=== PATIENT | female | born 1950 | race Asian ===

== ENCOUNTER 2017-03-24 11:25 | Inpatient (IN) | payer SELFPAY ==
[~2017-03-24] VITALS: Ht 154.9 cm; Wt 85.7 kg
[2017-03-24 12:02] LABS: BASO # 0.1 x10^3/uL (0.0-0.2); BASO % 1 % (0-3); EOS % 1 % (0-3); HEMATOCRIT 44.2 % (36.0-47.0); HEMOGLOBIN 14.4 g/dL (12.0-15.5); LYMPH # 1.8 x10^3/uL (1.0-4.8); LYMPH % 20 % (24-48); MEAN CORPUSCULAR HEMOGLOBIN 30 pg (25-35); MEAN CORPUSCULAR HGB CONC 33 g/dL (31-37); MEAN CORPUSCULAR VOLUME 93 fL (79-100); MONO % 6 % (0-9); NEUT % 73 % (31-73); PLATELET COUNT 208 x10^3/uL (140-400); RED BLOOD COUNT 4.76 x10^6/uL (3.50-5.40); RED CELL DISTRIBUTION WIDTH 12.7 % (11.5-14.5); WHITE BLOOD COUNT 9.2 x10^3/uL (4.0-11.0)
--- NOTE | 2017-03-24 12:07 | RAD ---
CT head without IV contrast Indication: Left-sided weakness. Technique: CT head without IV contrast Comparison: None Findings: No pathologic extra-axial or intra-axial fluid collections. Mild diffuse cerebral atrophy with ex vacuo dilation of the ventricles. No acute intracranial bleed. Confluent areas of low attenuation in the periventricular and deep white matter suggesting sequela of chronic microvascular disease. 1.1 cm area of low-attenuation within right basal ganglia. The basilar cisterns are within normal limits. Orbits within normal limits. No calvarial lesions or fractures. Visualized paranasal sinuses and mastoid air cells are clear. Impression: 1. No acute intracranial bleed. 2. Low-attenuation area within right basal ganglia (1.1 cm) likely infarct, age indeterminate. If concern for acute ischemic stroke is high, please consider MRI brain. 3. Confluent periventricular and deep white matter low attenuation most likely represents sequela of chronic microvascular ischemia. PQRS Compliance Statement: One or more of the following individualized dose reduction techniques were utilized for this examination: 1. Automated exposure control 2. Adjustment of the mA and/or kV according to patient size 3. Use of iterative reconstruction technique
[2017-03-24 12:13] LABS: PROTHROMBIN TIME PATIENT 12.5 SEC (11.7-14.0)
[2017-03-24 12:16] LABS: CREATININE 1.1 mg/dL (0.6-1.0); GFR 49.4; POTASSIUM 4.2 mmol/L (3.5-5.1)
[2017-03-24 12:19] LABS: ALBUMIN 3.8 g/dL (3.4-5.0); ALBUMIN/GLOBULIN RATIO 0.9 (1.0-1.7); TOTAL BILIRUBIN 0.6 mg/dL (0.2-1.0); TOTAL PROTEIN 8.1 g/dL (6.4-8.2)
[2017-03-24] MEDS ORDERED: DEXTROSE 50% 25 GM / 50ML DISP.SYRIN. IV PRN (12:30)
[2017-03-24 12:39] LABS: BILIRUBIN,URINE NEGATIVE (NEG); GLUCOSE,URINE >=1000 mg/dL (NEG); NITRITE,URINE POSITIVE (NEG); PH,URINE 6.5; PROTEIN,URINE NEGATIVE (NEG-TRACE); UROBILINOGEN,URINE 0.2 mg/dL (0.2 mg/dL)
--- NOTE | 2017-03-24 12:39 | EKG ---
[facility] [address] [place] [address] Test Date: 2017-03-24 Test Time: 11:41:14 Pat Name: VALENTINA CHEN Department: Room: Gender: F Service Vehicle Operator: : 1950 Requested By: AASHISH LEON Order Number: [id number] Reading MD: Matteo Bolanos Measurements Intervals [place] Rate: 60 P: 51 MT: 160 QRS: 30 QRSD: 80 T: 131 QT: 426 QTc: 426 Interpretive Statements SINUS RHYTHM NON-SPECIFIC ST/T CHANGES Electronically Signed On 03-29-2017 14:27:34 CDT by Matteo Bolanos
[2017-03-24 12:57] LABS: BARBITURATES NEG (NEG); BENZODIAZEPINES NEG (NEG); CANNABINOIDS NEG (NEG); COCAINE NEG (NEG); METHADONE NEG (NEG); OPIATES NEG (NEG); PHENCYCLIDINE NEG (NEG)
[2017-03-24 12:59] LABS: BACTERIA,URINE MANY /HPF (0-FEW); RBC,URINE RARE /HPF (0-2); SQUAMOUS EPITHELIAL CELL,UR OCC /LPF
--- NOTE | 2017-03-24 13:01 | RAD ---
Chest x-ray Indication: Weakness Technique: Portable AP upright chest plane from Comparison: None Findings: Heart is normal in size. Lungs are clear. No pneumothorax or pleural effusion. Visualized bony thorax within normal limits. Impression: No acute cardiopulmonary process.
[2017-03-24] MEDS ORDERED: ONDANSETRON PF 4 MG/2 ML VIAL. IV PRN ×2 (13:30→16:30)
[2017-03-24] MEDS: IV NORMAL SALINE 1000ML BAG 1,000 ML IV SCH ×3 (13:37→21:45)
[2017-03-24] MEDS ORDERED: 0.9 % SODIUM CHLORIDE 10 ML DISP.SYRIN. IV PRN (13:45)
[2017-03-24] MEDS ORDERED: ASPIRIN 300 MG SUPP.RECT PR ONE (13:45)
[2017-03-24] MEDS ORDERED: ACETAMINOPHEN 325 MG TABLET. PO PRN (13:45)
[2017-03-24] MEDS ORDERED: LABETALOL 20 MG/4 ML DISP.SYRIN. IV PRN (13:45)
[2017-03-24 13:50] VITALS: BP 154/69
--- NOTE | 2017-03-24 14:03 | ACF ---
Admit Criteria Forms Admit Criteria Forms Admit Criteria Forms NEUROLOGY GRG Clinical Indications for Admission to Inpatient Care (Place ' X' for any and all applicable criteria): Hospital admission is needed for appropriate care of the patient because of 1 or more of the following: [ ]I. Encephalitis [ ]II. Severe SAP DEVELOPER infections indicated by 1 or more of the following(1)(2)(3) : [ ]a) Intracranial abscess [ ]b) Spinal abscess or myelitis [ ]c) Tuberculous or other nonbacterial, nonviral SAP DEVELOPER infection(8) [ ]III. Vasculitis and 1 or more of the following(14)(15): []a) Altered mental status that is severe or persistent or other acute neurologic change []b) Psychosis []c) Seizure [ ]IV. Status epilepticus or repetitive seizures not controlled with emergent treatment [A] (7)(8) [ ]V. Altered mental status that is severe or persistent [ ]. Transient alteration in consciousness with high-risk etiology; examples include (12)(13): [ ]a) Cardiovascular source [ ]b) Cataplexy [ ]VII. Cerebral aneurysm requiring ANY ONE of the following(14): [ ]a) IV antihypertensives or vasoactive agents [ ]b) Sedation and analgesia for suspected leak [ ]c) Need for external ventricular drainage and cerebral perfusion pressure monitoring [ ]d) Emergent evaluation to determine need for surgical clipping or endovascular coiling by interventional radiology. If surgery is required ( Also use Craniotomy, Supratentorial, for Surgery of Bleeding Intracranial Aneurysm (for bleeding aneurysm) or Craniotomy, Supratentorial (for nonbleeding aneurysm) as appropriate. [ ]VIII. New-onset severe neurologic symptom requiring inpatient care indicated by ANY ONE of the following: [ ]a) Aphasia(15) [ ]b) Weakness (grade 3 or less) [ ]c) Paralysis (eg, hemiplegia) [ ]d) Spasticity(16) [ ]e) Dystonia [ ]e) Ataxia(17) [ ]f) Amnesia(18) [ ]g) Involuntary movements(19) [ ]h) Vertigo [ ] Visual loss [ ]i) Other severe neurologic finding (eg, papilledema, mass effect on imaging, myoclonus not treatable at alternative level of care (eg, observation care) [ ]IX. Guillain-Bow syndrome(20) [ ]X. Myasthenia gravis crisis or inpatient monitoring need as indicated by 1 or more of the following(21): [ ]a) Intensive treatment (eg, course of plasmapheresis) with inadequate outpatient situation to monitor patients status [ ]b) Inadequate airway protection [ ]c) Respiratory insufficiency requiring intubation or inpatient. monitoring [ ]d) Progressive dysphagia with failure to thrive [ ]XI. Multiple sclerosis or other acute demyelinating disease requiring inpatient care as indicated by 1 or more of the following (22)(23): [ ]a) Acute severe deterioration requiring inpatient treatment (eg, IV steroids, plasmapheresis, close observation) [ ]b) Acute complication requiring inpatient care (eg, sepsis, severe decubitus, aspiration) [ ]XII.Parkinson disease requiring inpatient care (Also use Optimal Recovery Care Criteria or General Recovery Criteria as appropriate) indicated by 1 or more of the following(25): [ ]a) Infection (eg, aspiration pneumonia) not treatable at alternative level of care [ ]b Dehydration that is severe or persistent [ ]c) Life-threatening agitation or psychotic behavior not treatable on emergency, observation care, or alternative level (eg, residential) basis [ ]d) Severe medication withdrawal effects (eg, freezing, neuroleptic malignant syndrome) not responsive to emergency and observation care treatment ( as appropriate) [ ]e) Other severe manifestation not treatable at alternative level of care [ ]XII. Amyotrophic lateral sclerosis with inpatient care needs as indicated by ANY ONE of the following(26): [ ]a) Acute complications (eg, aspiration pneumonia, sepsis ) requiring inpatient care ( see other optimal Recovery Guideline as appropriate) [ ]b) Dehydration that is severe persistent AND artificial support desired [ ]c) Inadequate airway protection AND artificial support desired [ ]d) Severe ventilatory insufficiency AND artificial support desired [ ]XIII. Myasthenia gravis crisis or inpatient monitoring need as indicated by 1 or more of the following(21): [] a) Inadequate airway protection []b) Respiratory insufficiency requiring intubation or inpatient monitoring []c) Progressive dysphagia with failure to thrive []d) Intensive treatment (e.g., course of plasmapheresis) with inadequate outpatient situation to monitor patients status [ ]XIV. Multiple sclerosis or other acute demyelinating disease requiring inpatient care indicated by 1 or more of the following[C](36)(43)(44)(45)(46): []a) Acute severe deterioration requiring inpatient treatment (eg, IV steroids, plasmapheresis, close observation) []b) Acute complication requiring inpatient care (eg, sepsis, severe decubitus, aspiration) [ ]XV. Intracranial hypertension (e.g., pseudotumor cerebri) requiring inpatient care (e.g., acute visual loss, inadequate oral intake) (47)(48)(49) [ ]XVI. Parkinson disease requiring inpatient care (Also use Optimal Recovery Care Criteria or General Recovery Criteria as appropriate) indicated by 1 or more of the following(25): [] a) Infection (e.g., aspiration pneumonia) not treatable at alternative level of care []b) Volume depletion not responsive to emergency and observation care treatment (as appropriate) []c) Life-threatening agitation or psychotic behavior not treatable on emergency, observation care, or alternative level (e.g., residential) basis []d) Severe medication withdrawal effects (e.g., freezing, neuroleptic malignant syndrome) not responsive to emergency and observation care treatment (as appropriate) []e) Other severe manifestation not treatable at alternative level of care [ ]XVII. Amyotrophic lateral sclerosis with inpatient care needs as indicated by1 or more of the following(42): []a) Acute complications (eg, aspiration pneumonia, sepsis) requiring inpatient care (see other Optimal Recovery Guideline or General Recovery Guideline as appropriate) []b) Dehydration that is severe or persistent AND artificial support desired []c) Inadequate airway protection AND artificial support desired []d) Severe ventilatory insufficiency AND artificial support desired [ ]XVIII. Severe myopathy, neuropathy, or other neuromuscular disease indicated by 1 or more of the following(42)(52)(53)(54): []a ) New-onset severe diffuse weakness (eg, strength 3/5 or less) []b) Severe dysphagia []c) Dyspnea at rest or with minimal exertion (new) []d) Inadequate airway protection []e) Inadequate ventilation indicated by 1 or more of the following : i) Partial pressure of carbon dioxide greater than 44 mm Hg ( 5.9 kPa) (new) ii) Reduced peak expiratory flow rate (new) iii) Vital capacity less than 50% of predicted (less than 15 mL/kg) iv) Peak inspiratory force less negative than -30 cm H2O (- 2942 Pa) [ ]XVII.Complications of congenital or degenerative disease (eg, infection, seizures, dehydration, injury) not responsive to emergency and observation care treatment (as appropriate ) [C](16)(29)(30) [ ]XVIII.Suspected or confirmed nerve or muscle toxic injury, including ANY ONE of the following: [ ]a) Rhabdomyolysis(31) i) Acute renal failure ii) Dehydration that is severe or persistent iii) Altered mental status that is severe or persistent iv) Electrolyte abnormality that remains after emergency or observation level care ( as appropriate) [ ]b) Botulism(32) [ ]c) Other severe toxin-induced sign or symptom [ ]XIX. Neurologic trauma requiring inpatient treatment (medical) indicated by ANY ONE of the following(33)(34): [ ]a) Vital signs or neurologic signs more frequently than every 4 hours [ ]b) Hyperosmolar therapy [ ]c) Respiratory monitoring [ ]d) Intracranial pressure monitoring and treatment [ ]e) Stabilization and immobilization device placement (eg, braces, body jacket) [ ]f) Intubation & mechanical ventilation for airway protection or therapeutic hyperventilation [ ]g) Other treatment or monitoring needed that requires inpatient level of care [ ]XX.Complications of neurologic devices (eg, ventricular shunt, neurostimulator) requiring 1 or more of the following(35)(36): [ ]a) IV antibiotics with monitoring while awaiting culture results [ ]b) Monitoring for hydrocephalus [X ]XXI. Neurology condition symptom, or finding for which emergency and observation care have failed or are not considered appropriate. See General Criteria: Observation Care ISC, General Admission Criteria GRG, or Pediatric General Admission Criteria GRG guideline as appropriate. The original [employer] content created by [employer] has been revised. The portions of the content which have been revised are identified through the use of italic text or in bold, and [facility] has neither reviewed nor approved the modified material. All other unmodified content is copyright [facility] Please see references footnoted in the original [facility] [facility] edition 2016 JACE BARR Mar 24, 2017 14:03
[2017-03-24 14:30] VITALS: BP 177/68
[2017-03-24] MEDS: ENOXAPARIN 40 MG/0.4 ML SYRINGE. SQ SCH (14:32)
--- NOTE | 2017-03-24 14:58 | RAD ---
Carotid ultrasound, 03/24/2017: History: Stroke Duplex evaluation of the carotid arteries in neck was performed including grayscale, color-flow and spectral Doppler analysis. On the left, there is moderate atherosclerotic plaquing at the bifurcation. The plaques are partially calcified. The peak systolic velocity in the proximal left internal carotid artery is 93 cm/s with an end-diastolic velocity of 39 cm/s. The internal carotid to common carotid artery ratio on the left is 1.1. The Doppler findings suggest narrowing in the 0-50% diameter range. On the right, there is more extensive plaquing at the bifurcation. The common carotid artery demonstrates an abnormal high resistive Doppler waveform. No color flow is evident in the right internal carotid artery. There is blood flow in the right external carotid artery with a peak systolic velocity 120 cm/s. Antegrade flow is present in both vertebral arteries in the neck. IMPRESSION: 1. 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 2. Moderate atherosclerotic plaquing at the left carotid bifurcation with underlying luminal narrowing of the proximal internal carotid artery in the 0-50% diameter range. Note: The patient's nurse on the floor was notified of these findings at 2:55 PM on 03/24/2017. Note: Stenosis calculations for CTA, MRA and conventional angiography are based upon determination of the distal ICA diameter in accordance with the NASCET methodology. Stenosis calculations for Doppler studies are derived from validated velocity criteria which are known to correlate with NASCET methodology of determining stenosis.
--- NOTE | 2017-03-24 15:35 | ED.ADGEN ---
Past Medical History Past Medical History: Diabetes-Type II, Hypertension Past Surgical History: Alcohol Use: None Drug Use: None Adult General Chief Complaint Chief Complaint: NEURO SYMPTOMS/DEFICITS HPI HPI Patient is a 66 year old woman, history of hypertension, type 2 diabetes mellitus, obesity, who has been noncompliant with her medications for approximately 1 month due to running out of medications while visiting from the walking, who presents to the emergency department with a complaint of left lower extremity weakness that began one day ago, and development of left upper extremity weakness and facial droop with slurred speech that began earlier today. Per patient's family at bedside, patient symptoms were first noted yesterday when she was having difficulty moving her left leg. They state they tried to encourage the patient come to the emergency department for evaluation with the patient declined. He stated this finding is and persistent since that time. They state that this morning approximately 2 and half hours prior to arrival in the emergency department they noted the patient was experiencing some slurred speech and facial droop, with weakness that is now developed in the left upper extremity. There are no similar symptoms previously. Patient has not had any injuries, no recent travel, no ingestions or exposures, patient denies any headache, any chest pain, shortness breath, any nausea or vomiting. Translation is assisted by family at bedside. Patient's NH stroke scale is 10. As patient's symptoms began more than 24 hours ago, she does not meet criteria for a code stroke activation. Review of Systems Review of Systems Constitutional: Denies fever or chills. [] Eyes: Denies change in visual acuity. [] HENT: Denies nasal congestion or sore throat. [] Respiratory: Denies cough or shortness of breath. [] Cardiovascular: Denies chest pain or edema. [] GI: Denies abdominal pain, nausea, vomiting, bloody stools or diarrhea. [] : Denies dysuria. [] Musculoskeletal: Denies back pain or joint pain. [] Integument: Denies rash. [] Neurologic: Denies headache, weakness in the left upper and left lower extremity, left-sided facial droop. Slurred speech. Endocrine: Denies polyuria or polydipsia. [] Lymphatic: Denies swollen glands. [] Psychiatric: Denies depression or anxiety. [] Current Medications Current Medications Current Medications Medications (Trade) Dose Ordered Sig/Mynor Start Time Stop Time Status Last Admin Dose Admin Dextrose (Dextrose 50%-Water Syringe) 12.5 gm PRN Q15MIN PRN 03/24/17 12:30 Allergies Allergies Allergies Coded Allergies Type Severity Reaction Last Updated Verified No Known Drug Allergies 03/24/17 No Physical Exam Physical Exam Constitutional: Well developed, well nourished, no acute distress, non-toxic appearance. [] HENT: Normocephalic, atraumatic, bilateral external ears normal, oropharynx moist, no oral exudates, nose normal. [] Eyes: PERRLA, EOMI, conjunctiva normal, no discharge. [] Neck: Normal range of motion, no tenderness, supple, no stridor. [] Cardiovascular:Heart rate regular rhythm, no murmurs, S1, S2, no rubs or gallops. [] Lungs & Thorax: Bilateral breath sounds clear to auscultation, no wheezing, rhonchi, rales. No chest or crepitus or tenderness. [] Abdomen: Bowel sounds normal, soft, no tenderness, no masses, no rebound, rigidity, no guarding, no pulsatile masses. [] Skin: Warm, dry, no erythema, no rash. [] Back: No tenderness, no CVA tenderness. [] Extremities: No tenderness, no cyanosis, no clubbing, ROM intact, no edema. [] Neurologic: Alert and oriented X 3, sensation appears to be intact, however patient has 4-5 strength in the left lower extremity, 5 out of 5 in the right, and 3-5 strength in the left upper extremity, with a left-sided facial droop noted with decreased nasolabial folds. No trauma or uvular deviation, patient with mild dysarthria. Psychologic: Affect normal, judgement normal, mood normal. [] Current Patient Data Vital Signs Vital Signs Date Time Temp Pulse Resp B/P (MAP) Pulse Ox O2 Delivery O2 Flow Rate FiO2 03/24/17 12:32 54 16 143/65 (91) 95 03/24/17 11:45 Room Air 03/24/17 11:33 98.1 98.1 Lab Values Laboratory Tests Test 03/24/17 11:33 03/24/17 11:50 03/24/17 12:25 Glucose (Fingerstick) 265 mg/dL (70-99) H White Blood Count 9.2 x10^3/uL (4.0-11.0) Red Blood Count 4.76 x10^6/uL (3.50-5.40) Hemoglobin 14.4 g/dL (12.0-15.5) Hematocrit 44.2 % (36.0-47.0) Mean Corpuscular Volume 93 fL (79-100) Mean Corpuscular Hemoglobin 30 pg (25-35) Mean Corpuscular Hemoglobin Concent 33 g/dL (31-37) Red Cell Distribution Width 12.7 % (11.5-14.5) Platelet Count 208 x10^3/uL (140-400) Neutrophils (%) (Auto) 73 % (31-73) Lymphocytes (%) (Auto) 20 % (24-48) L Monocytes (%) (Auto) 6 % (0-9) Eosinophils (%) (Auto) 1 % (0-3) Basophils (%) (Auto) 1 % (0-3) Neutrophils # (Auto) 6.7 x10^3uL (1.8-7.7) Lymphocytes # (Auto) 1.8 x10^3/uL (1.0-4.8) Monocytes # (Auto) 0.5 x10^3/uL (0.0-1.1) Eosinophils # (Auto) 0.1 x10^3/uL (0.0-0.7) Basophils # (Auto) 0.1 x10^3/uL (0.0-0.2) Prothrombin Time 12.5 SEC (11.7-14.0) Prothrombin Time INR 1.0 (0.8-1.1) PTT 25 SEC (24-38) Sodium Level 138 mmol/L (136-145) Potassium Level 4.2 mmol/L (3.5-5.1) Chloride Level 100 mmol/L (98-107) Carbon Dioxide Level 30 mmol/L (21-32) Anion Gap 8 (6-14) Blood Urea Nitrogen 19 mg/dL (7-20) Creatinine 1.1 mg/dL (0.6-1.0) H Estimated GFR (Cockcroft-Gault) 49.4 BUN/Creatinine Ratio 17 (6-20) Glucose Level 309 mg/dL (70-99) H Calcium Level 9.0 mg/dL (8.5-10.1) Total Bilirubin 0.6 mg/dL (0.2-1.0) Aspartate Amino Transferase (AST) 39 U/L (15-37) H Alanine Aminotransferase (ALT) 84 U/L (14-59) H Alkaline Phosphatase 76 U/L (46-116) Troponin I Quantitative < 0.017 ng/mL (0.000-0.055) Total Protein 8.1 g/dL (6.4-8.2) Albumin 3.8 g/dL (3.4-5.0) Albumin/Globulin Ratio 0.9 (1.0-1.7) L Urine Collection Type U cath Urine Color Yellow Urine Clarity Clear Urine pH 6.5 Urine Specific [place] 1.020 Urine Protein Negative mg/dL (NEG-TRACE) Urine Glucose (UA) >=1000 mg/dL (NEG) Urine Ketones (Stick) Negative mg/dL (NEG) Urine Blood Negative (NEG) Urine Nitrite Positive (NEG) Urine Bilirubin Negative (NEG) Urine Urobilinogen Dipstick 0.2 mg/dL (0.2 mg/dL) Urine Leukocyte Esterase Moderate (NEG) Urine RBC Rare /HPF (0-2) Urine WBC 11-20 /HPF (0-4) Urine Squamous Epithelial Cells Occ /LPF Urine Bacteria Many /HPF (0-FEW) Urine Opiates Screen Neg (NEG) Urine Methadone Screen Neg (NEG) Urine Barbiturates Neg (NEG) Urine Phencyclidine Screen Neg (NEG) Urine Amphetamine/Methamphetamine Neg (NEG) Urine Benzodiazepines Screen Neg (NEG) Urine Cocaine Screen Neg (NEG) Urine Cannabinoids Screen Neg (NEG) Urine Ethyl Alcohol Neg (NEG) Laboratory Tests 03/24/17 11:50 Laboratory Tests 03/24/17 11:50 EKG EKG EC: Sinus rhythm, heart rate 60 beats/minute, upright axis, QTC of 426, KS 160, QRS of 80, contour abnormalities noted in the anterior and lateral leads , with mild ST depressions noted in lead V6, no no ST elevations, abnormal ECG, does not meet STEMI criteria. No prior for comparison. As interpreted by me. Radiology/Procedures Radiology/Procedures [][facility] [address] [place], [place] [id number] IMAGING REPORT Signed PATIENT: VALENTINA CHEN ACCOUNT: [id number] : 1950 LOCATION: ER AGE: 66 SEX: F EXAM STATUS: PRE ER ORD. PHYSICIAN: AASHISH LEON DO REASON: weakness PROCEDURE: CT HEAD WO CONTRAST CT head without IV contrast Indication: Left-sided weakness. Technique: CT head without IV contrast Comparison: None Findings: No pathologic extra-axial or intra-axial fluid collections. Mild diffuse cerebral atrophy with ex vacuo dilation of the ventricles. No acute intracranial bleed. Confluent areas of low attenuation in the periventricular and deep white matter suggesting sequela of chronic microvascular disease. 1.1 cm area of low-attenuation within right basal ganglia. The basilar cisterns are within normal limits. Orbits within normal limits. No calvarial lesions or fractures. Visualized paranasal sinuses and mastoid air cells are clear. Impression: 1. No acute intracranial bleed. 2. Low-attenuation area within right basal ganglia (1.1 cm) likely infarct, age indeterminate. If concern for acute ischemic stroke is high, please consider MRI brain. 3. Confluent periventricular and deep white matter low attenuation most likely represents sequela of chronic microvascular ischemia. PQRS Compliance Statement: One or more of the following individualized dose reduction techniques were utilized for this examination: 1. Automated exposure control 2. Adjustment of the mA and/or kV according to patient size 3. Use of iterative reconstruction technique DICTATED and SIGNED BY: MARISELA JONAS DO DATE: 03/24/17 1200 CC: AASHISH LEON DO ~ Impressions: [facility] [address] [place], [place] [id number] IMAGING REPORT Signed PATIENT: VALENTINA CHEN ACCOUNT: [id number] : 1950 LOCATION: ER AGE: 66 SEX: F EXAM STATUS: REG ER ORD. PHYSICIAN: AASHISH LEON DO REASON: Weakness PROCEDURE: CHEST AP ONLY Chest x-ray Indication: Weakness Technique: Portable AP upright chest plane from Comparison: None Findings: Heart is normal in size. Lungs are clear. No pneumothorax or pleural effusion. Visualized bony thorax within normal limits. Impression: No acute cardiopulmonary process. DICTATED and SIGNED BY: MARISELA JONAS DO DATE: 03/24/17 1257 CC: AASHISH LEON DO; UNKNOWN PCP NAME ~ Course & Med Decision Making Course & Med Decision Making Pertinent Labs and Imaging studies reviewed. (See chart for details) Patient's examination consistent with CVA, at this time based blood pressure is 150s over 70s, heart rate is in the 80s, saturation is in the upper 90s respiratory rate is in the 20s and unlabored. However, patient has been noncompliant with medications for both blood pressure and diabetes for at least one month. CT of the head obtained, reveals evidence of a basal ganglia infarct of indeterminate age. Swallow screen performed in the emergency department, patient was unable to comply, rectal aspirin was administered and the patient was continued nothing by mouth status. Findings as above discussed with patient and family at bedside, patient is agreeable for admission to the hospital. I did speak with Dr. Hummel of neurology, will admit the patient for continued management and evaluation, with carotid Dopplers, and MRI brain with and without. MRI brain was ordered from the ED. I spoke with Dr. Arellano of internal medicine on patient accepted to her service as a full admission to the medical telemetry floor, with continued monitoring, and neurology consultation as stated. Bridge orders entered per discussion. Dragon Disclaimer Dragon Disclaimer This electronic medical record was generated, in whole or in part, using a voice recognition dictation system. Departure Impression: Primary Impression: CVA (cerebral vascular accident) Disposition: ADMITTED INPATIENT Admitting Physician: Jonna Arellano Condition: STABLE AASHISH LEON DO Mar 24, 2017 15:35
--- NOTE | 2017-03-24 15:41 | RAD ---
MRI Brain without contrast History: Left-sided weakness, active aphagia for 2 days, stroke Technique: Multiplanar, multisequential noncontrast MR imaging was performed of the brain. Contrast: None Comparison: None Findings: There is 1.3 cm focus of restricted diffusion centered in the right basal ganglia, a few other foci more superiorly of the basal ganglia and right goldsmith radiata, other larger focus of the right goldsmith radiata 1.5 cm. There is also small focus right frontal lobe 0.3 cm. There is possible tiny focus along the right parietal cortex probable, also small focus along the right frontal cortex. There is no restricted diffusion of the left hemisphere or posterior fossa. There is some variable T2 and FLAIR hyperintense signal associated with the foci of restricted diffusion. There is also other scattered T2 and FLAIR hyperintense abnormality of the supratentorial white matter bilaterally. There is old lacunar infarct of the right caudate head, also small focus of the right centrum semiovale. There is no midline shift or significant extra-axial fluid collection. Ventricular size is within normal limits given mild generalized supratentorial atrophy. There is abnormal signal in the right internal carotid artery at the skull base, also of the left intradural vertebral artery. Mastoid air cells and the nasal sinuses are overall aerated. There is empty sella. Cerebellar tonsils are normal in location. There is adequate preservation of marrow signal of the clivus. There is no significant hemosiderin deposition of the brain parenchyma. Impression: 1. There are early subacute infarcts of the right cerebral hemisphere, largest of the right basal ganglia and goldsmith radiata as stated. There is abnormal signal in the right internal carotid artery at the skull base compatible with thromboembolism, may be occluded or nearly occluded. There is also some abnormal signal of the left intradural vertebral artery. 2. Other scattered T2 and FLAIR hyperintense abnormality of the supratentorial white matter is probably due to chronic microvascular ischemic disease. There are old lacunar infarcts as stated. 3. There is generalized supratentorial atrophy. FOR INTERNAL CODING PURPOSES Critical result: Findings discussed with patient's nurse Melanie at 03/24/2017 3:36 PM, to inform doctor of the findings. RESULT CODE: (C) Electronically signed by: Ramesh Sandy MD (03/24/2017 3:38 PM) [id number]
--- NOTE | 2017-03-24 16:13 | PDOC2 ---
NEUROLOGY CONSULT Date of Admission Date of Admission DATE: 03/24/17 TIME: 16:02 Reason for Consult Reason for Consult: Stroke symptoms Referring Physician Referring Physician: Dr. Arellano Source Source: Caregiver, Chart review, Patient History of Present Illness History of Present Illness The patient is a 66-year-old right-handed female who noticed some left leg weakness yesterday. This morning she had face and arm weakness and came to the emergency department. The patient has no prior history of stroke, seizure, or head injury. Past Medical History Cardiovascular: HTN CENTRAL NERVOUS SYSTEM: Other (headaches) GI: Other (she has been having some abdominal pain) Endocrine: Diabetes Past Surgical History Past Surgical History: Family History Family History: Hypertension Social History Social History , used to smoke and uses alcohol but none in the last several years. Current Medications Current Medications Current Medications Insulin Aspart (NovoLOG) 0-5 UNITS TIDWMEALS SQ ; Start 03/24/17 at 17:00 Dextrose (Dextrose 50%-Water Syringe) 12.5 gm PRN Q15MIN PRN IV SEE COMMENTS; Start 03/24/17 at 12:30 Ceftriaxone Sodium 50 ml @ 100 mls/hr 1X ONCE IV Last administered on 13:33; Start 03/24/17 at 13:30; Stop 03/24/17 at 13:59; Status DC Ceftriaxone Sodium 1 gm/ Sodium Chloride 50 ml @ 100 mls/hr Q24H IV ; Start at 14:00 Ondansetron HCl (Zofran) 4 mg PRN Q8HRS PRN IV NAUSEA/VOMITING; Start 03/24/17 at 13:30; Stop 03/25/17 at 13:29 Sodium Chloride 1,000 ml @ 125 mls/hr Q8H IV Last administered on 03/24/17 13 :37; Start 03/24/17 at 13:45; Stop 03/25/17 at 13:44 Aspirin (Aspirin) 300 mg 1X ONCE PA Last administered on 03/24/17 13:45; Start 03/24/17 at 13:45; Stop 03/24/17 at 13:46; Status DC Sodium Chloride (Normal Saline Flush) 3 ml QSHIFT PRN IV AFTER MEDS AND BLOOD DRAWS; Start 03/24/17 at 13:45 Sodium Chloride 1,000 ml @ 100 mls/hr Q10H IV Last administered on 03/24/17 14:00; Start 03/24/17 at 14:00 Aspirin (Ecotrin) 325 mg DAILYWBKFT PO ; Start 03/25/17 at 08:00 Atorvastatin Calcium (Lipitor) 20 mg QHS PO ; Start 03/24/17 at 21:00 Labetalol HCl (Normodyne) 10 mg PRN Q10MIN PRN IV HYPERTENSION, SEE COMMENTS; Start 03/24/17 at 13:45 Acetaminophen (Tylenol) 650 mg PRN Q6HRS PRN PO FEVER; Start 03/24/17 at 13:45 Acetaminophen (Acetaminophen Supp) 650 mg PRN Q6HRS PRN PA FEVER; Start at 13:45 Enoxaparin Sodium (Lovenox 40mg Syringe) 40 mg Q24H SQ Last administered on 14:32; Start 03/24/17 at 15:00 Allergies Allergies: Coded Allergies: No Known Drug Allergies (Unverified , 03/24/17) ROS Review of System Patient denies fevers, chills, weight loss, dyspnea, angina, change in bowels, or dysuria. Positive for abdominal pain. 14 point review of systems is negative. Physical Exam Physical Examination PHYSICAL EXAMINATION: Vital signs: see above. General appearance is normal and in no acute distress. HEENT: Normocephalic and nontraumatic. Eyes, nose, ears, and throat are unremarkable. Neck is supple. No lymphadenopathy. No bruits are heard over the carotid artery. No crepitus. NEUROLOGICAL EXAMINATION: Mental Status Examination: Alert. Answers questions and follows commends. American is not her [place] language, she is from [facility]. Pupils are equal round and reactive to light and accommodation. Extraocular movements are intact. Visual field exam shows left field cut. There is a left central facial weakness. Uvula in the midline and the soft palate elevated symmetrically. No deviation of the tongue to any direction. Gross hearing is normal. Shoulder shrug normal. Muscle tone is normal. Muscle strength is 2-3/ 5 on left. Deep tendon reflexes are 2+ all around. Plantar reflex is extensor on the left and flexor on the right. Vwnytw-of-hqdy test performance is accurate on the right. Alternative movements are accurate. Gait is not tested. Sensory exam shows extinction on the left. No cerebellar signs are elicited. Vitals VITALS Vital Signs Date Time Temp Pulse Resp B/P (MAP) Pulse Ox O2 Delivery O2 Flow Rate FiO2 03/24/17 14:30 97.9 51 18 177/68 (104) 96 Room Air 97.9 Labs Labs Laboratory Tests Test 03/24/17 11:33 03/24/17 11:50 03/24/17 12:25 Glucose (Fingerstick) 265 mg/dL (70-99) White Blood Count 9.2 x10^3/uL (4.0-11.0) Red Blood Count 4.76 x10^6/uL (3.50-5.40) Hemoglobin 14.4 g/dL (12.0-15.5) Hematocrit 44.2 % (36.0-47.0) Mean Corpuscular Volume 93 fL (79-100) Mean Corpuscular Hemoglobin 30 pg (25-35) Mean Corpuscular Hemoglobin Concent 33 g/dL (31-37) Red Cell Distribution Width 12.7 % (11.5-14.5) Platelet Count 208 x10^3/uL (140-400) Neutrophils (%) (Auto) 73 % (31-73) Lymphocytes (%) (Auto) 20 % (24-48) Monocytes (%) (Auto) 6 % (0-9) Eosinophils (%) (Auto) 1 % (0-3) Basophils (%) (Auto) 1 % (0-3) Neutrophils # (Auto) 6.7 x10^3uL (1.8-7.7) Lymphocytes # (Auto) 1.8 x10^3/uL (1.0-4.8) Monocytes # (Auto) 0.5 x10^3/uL (0.0-1.1) Eosinophils # (Auto) 0.1 x10^3/uL (0.0-0.7) Basophils # (Auto) 0.1 x10^3/uL (0.0-0.2) Prothrombin Time 12.5 SEC (11.7-14.0) Prothromb Time International Ratio 1.0 (0.8-1.1) Activated Partial Thromboplast Time 25 SEC (24-38) Sodium Level 138 mmol/L (136-145) Potassium Level 4.2 mmol/L (3.5-5.1) Chloride Level 100 mmol/L (98-107) Carbon Dioxide Level 30 mmol/L (21-32) Anion Gap 8 (6-14) Blood Urea Nitrogen 19 mg/dL (7-20) Creatinine 1.1 mg/dL (0.6-1.0) Estimated GFR (Cockcroft-Gault) 49.4 BUN/Creatinine Ratio 17 (6-20) Glucose Level 309 mg/dL (70-99) Calcium Level 9.0 mg/dL (8.5-10.1) Total Bilirubin 0.6 mg/dL (0.2-1.0) Aspartate Amino Transf (AST/SGOT) 39 U/L (15-37) Alanine Aminotransferase (ALT/SGPT) 84 U/L (14-59) Alkaline Phosphatase 76 U/L (46-116) Troponin I Quantitative < 0.017 ng/mL (0.000-0.055) Total Protein 8.1 g/dL (6.4-8.2) Albumin 3.8 g/dL (3.4-5.0) Albumin/Globulin Ratio 0.9 (1.0-1.7) Urine Collection Type U cath Urine Color Yellow Urine Clarity Clear Urine pH 6.5 Urine Specific [place]all 1.020 Urine Protein Negative mg/dL (NEG-TRACE) Urine Glucose (UA) >=1000 mg/dL (NEG) Urine Ketones (Stick) Negative mg/dL (NEG) Urine Blood Negative (NEG) Urine Nitrite Positive (NEG) Urine Bilirubin Negative (NEG) Urine Urobilinogen Dipstick 0.2 mg/dL (0.2 mg/dL) Urine Leukocyte Esterase Moderate (NEG) Urine RBC Rare /HPF (0-2) Urine WBC 11-20 /HPF (0-4) Urine Squamous Epithelial Cells Occ /LPF Urine Bacteria Many /HPF (0-FEW) Urine Opiates Screen Neg (NEG) Urine Methadone Screen Neg (NEG) Urine Barbiturates Neg (NEG) Urine Phencyclidine Screen Neg (NEG) Urine Amphetamine/Methamphetamine Neg (NEG) Urine Benzodiazepines Screen Neg (NEG) Urine Cocaine Screen Neg (NEG) Urine Cannabinoids Screen Neg (NEG) Urine Ethyl Alcohol Neg (NEG) Laboratory Tests Test 03/24/17 11:33 03/24/17 11:50 03/24/17 12:25 Glucose (Fingerstick) 265 mg/dL (70-99) White Blood Count 9.2 x10^3/uL (4.0-11.0) Red Blood Count 4.76 x10^6/uL (3.50-5.40) Hemoglobin 14.4 g/dL (12.0-15.5) Hematocrit 44.2 % (36.0-47.0) Mean Corpuscular Volume 93 fL (79-100) Mean Corpuscular Hemoglobin 30 pg (25-35) Mean Corpuscular Hemoglobin Concent 33 g/dL (31-37) Red Cell Distribution Width 12.7 % (11.5-14.5) Platelet Count 208 x10^3/uL (140-400) Neutrophils (%) (Auto) 73 % (31-73) Lymphocytes (%) (Auto) 20 % (24-48) Monocytes (%) (Auto) 6 % (0-9) Eosinophils (%) (Auto) 1 % (0-3) Basophils (%) (Auto) 1 % (0-3) Neutrophils # (Auto) 6.7 x10^3uL (1.8-7.7) Lymphocytes # (Auto) 1.8 x10^3/uL (1.0-4.8) Monocytes # (Auto) 0.5 x10^3/uL (0.0-1.1) Eosinophils # (Auto) 0.1 x10^3/uL (0.0-0.7) Basophils # (Auto) 0.1 x10^3/uL (0.0-0.2) Prothrombin Time 12.5 SEC (11.7-14.0) Prothromb Time International Ratio 1.0 (0.8-1.1) Activated Partial Thromboplast Time 25 SEC (24-38) Sodium Level 138 mmol/L (136-145) Potassium Level 4.2 mmol/L (3.5-5.1) Chloride Level 100 mmol/L (98-107) Carbon Dioxide Level 30 mmol/L (21-32) Anion Gap 8 (6-14) Blood Urea Nitrogen 19 mg/dL (7-20) Creatinine 1.1 mg/dL (0.6-1.0) Estimated GFR (Cockcroft-Gault) 49.4 BUN/Creatinine Ratio 17 (6-20) Glucose Level 309 mg/dL (70-99) Calcium Level 9.0 mg/dL (8.5-10.1) Total Bilirubin 0.6 mg/dL (0.2-1.0) Aspartate Amino Transf (AST/SGOT) 39 U/L (15-37) Alanine Aminotransferase (ALT/SGPT) 84 U/L (14-59) Alkaline Phosphatase 76 U/L (46-116) Troponin I Quantitative < 0.017 ng/mL (0.000-0.055) Total Protein 8.1 g/dL (6.4-8.2) Albumin 3.8 g/dL (3.4-5.0) Albumin/Globulin Ratio 0.9 (1.0-1.7) Urine Collection Type U cath Urine Color Yellow Urine Clarity Clear Urine pH 6.5 Urine Specific Loyall 1.020 Urine Protein Negative mg/dL (NEG-TRACE) Urine Glucose (UA) >=1000 mg/dL (NEG) Urine Ketones (Stick) Negative mg/dL (NEG) Urine Blood Negative (NEG) Urine Nitrite Positive (NEG) Urine Bilirubin Negative (NEG) Urine Urobilinogen Dipstick 0.2 mg/dL (0.2 mg/dL) Urine Leukocyte Esterase Moderate (NEG) Urine RBC Rare /HPF (0-2) Urine WBC 11-20 /HPF (0-4) Urine Squamous Epithelial Cells Occ /LPF Urine Bacteria Many /HPF (0-FEW) Urine Opiates Screen Neg (NEG) Urine Methadone Screen Neg (NEG) Urine Barbiturates Neg (NEG) Urine Phencyclidine Screen Neg (NEG) Urine Amphetamine/Methamphetamine Neg (NEG) Urine Benzodiazepines Screen Neg (NEG) Urine Cocaine Screen Neg (NEG) Urine Cannabinoids Screen Neg (NEG) Urine Ethyl Alcohol Neg (NEG) Images Images MRI brain: Findings: There is 1.3 cm focus of restricted diffusion centered in the right basal ganglia, a few other foci more superiorly of the basal ganglia and right goldsmith radiata, other larger focus of the right goldsmith radiata 1.5 cm. There is also small focus right frontal lobe 0.3 cm. There is possible tiny focus along the right parietal cortex probable, also small focus along the right frontal cortex. There is no restricted diffusion of the left hemisphere or posterior fossa. There is some variable T2 and FLAIR hyperintense signal associated with the foci of restricted diffusion. There is also other scattered T2 and FLAIR hyperintense abnormality of the supratentorial white matter bilaterally. There is old lacunar infarct of the right caudate head, also small focus of the right centrum semiovale. There is no midline shift or significant extra-axial fluid collection. Ventricular size is within normal limits given mild generalized supratentorial atrophy. There is abnormal signal in the right internal carotid artery at the skull base, also of the left intradural vertebral artery. Mastoid air cells and the nasal sinuses are overall aerated. There is empty sella. Cerebellar tonsils are normal in location. There is adequate preservation of marrow signal of the clivus. There is no significant hemosiderin deposition of the brain parenchyma. Impression: 1. There are early subacute infarcts of the right cerebral hemisphere, largest of the right basal ganglia and goldsmith radiata as stated. There is abnormal signal in the right internal carotid artery at the skull base compatible with thromboembolism, may be occluded or nearly occluded. There is also some abnormal signal of the left intradural vertebral artery. 2. Other scattered T2 and FLAIR hyperintense abnormality of the supratentorial white matter is probably due to chronic microvascular ischemic disease. There are old lacunar infarcts as stated. 3. There is generalized supratentorial atrophy. Carotids: IMPRESSION: 1. 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 2. Moderate atherosclerotic plaquing at the left carotid bifurcation with underlying luminal narrowing of the proximal internal carotid artery in the 0-50% diameter range. Head CT: Findings: No pathologic extra-axial or intra-axial fluid collections. Mild diffuse cerebral atrophy with ex vacuo dilation of the ventricles. No acute intracranial bleed. Confluent areas of low attenuation in the periventricular and deep white matter suggesting sequela of chronic microvascular disease. 1.1 cm area of low-attenuation within right basal ganglia. The basilar cisterns are within normal limits. Orbits within normal limits. No calvarial lesions or fractures. Visualized paranasal sinuses and mastoid air cells are clear. Impression: 1. No acute intracranial bleed. 2. Low-attenuation area within right basal ganglia (1.1 cm) likely infarct, age indeterminate. If concern for acute ischemic stroke is high, please consider MRI brain. 3. Confluent periventricular and deep white matter low attenuation most likely represents sequela of chronic microvascular ischemia. Assessment/Plan Assessment/Plan Impression: Right hemispheric stroke, symptoms are worsening, in the presence of ipsilateral carotid occlusion. Recommendations: MRI brain, carotid Dopplers, already done I ordered a stat CT angiogram Echocardiogram She was not a candidate for alteplase because she presented 24 hours after the onset of the symptoms. She is also too late for interventional radiology. Revascularizing the occluded carotid artery would also be detrimental but I will still consult vascular surgery. Nothing by mouth, speech evaluation Rehabilitation modalities. Lovenox, dose appropriate to low creatinine clearance. Heparin anticoagulation has never been shown to be useful in this situation. I discussed my findings with the patient and her family. Thank you for letting me help with the patient's care. ETIENNE TRAORE MD Mar 24, 2017 16:13
[2017-03-24] MEDS ORDERED: IOHEXOL 350 MG/ML 100 ML VIAL. IV ONE (16:15)
--- NOTE | 2017-03-24 16:28 | CARD ---
APPROVED REPORT EXAM: Two-dimensional and M-mode echocardiogram with Doppler and color Doppler. Other Information Quality : GoodHR: 51bpm Rhythm : Bradycardia INDICATION CVA/TIA Echo Enhancing Agent Indication: Rule Out septal defect Agent/Amount Used: Agitated saline 8mL 2D DIMENSIONS RVDd3.0 (2.9-3.5cm)Left Atrium(2D)3.4 (1.6-4.0cm) IVSd1.1 (0.7-1.1cm)Aortic Root(2D)2.6 (2.0-3.7cm) LVDd4.8 (3.9-5.9cm)LVOT Diameter2.2 (1.8-2.4cm) PWd0.9 (0.7-1.1cm)LVDs3.3 (2.5-4.0cm) FS (%) 31.5 %SV62.7 ml LVEF(%)59.3 (>50%) Aortic Valve AoV Peak Santiago.171.0cm/sAoV VTI37.0cm AO Peak GR.11.7mmHgLVOT Peak Santiago.92.6cm/s AO Mean GR.6mmHgAVA (VMAX)2.03cm2 Mitral Valve MV E Ekbuizdy50.3cm/sMV E Peak Gr.4mmHg MV DECEL [id number] A Emiazkhp257.5cm/s MV E Mean Gr.1mmHgE/A Ratio0.8 MV A [id number] Pulmonary Valve PV Peak Pxebkgrl65.7cm/s Pulmonary Vein S1 Tnfgrrwx51.4cm/sD2 Xosyybhw47.6cm/s PVa [id number] LEFT VENTRICLE The left ventricle is normal size. There is mild concentric left ventricular hypertrophy. The left ve ntricular systolic function is normal. The Ejection Fraction is 65-70%. There is normal LV segmental wall motion. Transmitral Doppler flow pattern is Grade I-abnormal relaxation pattern. No left ventric le thrombus noted on this study. There is no ventricular septal defect visualized. RIGHT VENTRICLE The right ventricle is normal size. There is normal right ventricular wall thickness. The right ventr icular systolic function is normal. ATRIA The left atrium size is normal. The right atrium size is normal. The interatrial septum is intact wit h no evidence for an atrial septal defect or patent foramen ovale as noted on 2-D or Doppler imaging. Injection of bubbles documented no definite evidenceof an interatrial shunt. AORTIC VALVE The aortic valve is mildly sclerotic. The aortic valve is trileaflet. Doppler and Color Flow revealed no significant aortic regurgitation. There is no significant aortic valvular stenosis. MITRAL VALVE Mitral annular calcification is moderate. The mitral valve leaflets are thickened. There is no eviden ce of mitral valve prolapse. There is no mitral valve stenosis. Doppler and Color Flow revealed no mi tral valve regurgitation noted. TRICUSPID VALVE Doppler and Color Flow revealed no tricuspid valve regurgitation noted. Unable to determine pulmonary artery pressure at exam time. PULMONIC VALVE The pulmonary valve is not well visualized but appears to open adequately. Doppler and Color Flow rev ealed trace pulmonic valvular regurgitation. There is no pulmonic valvular stenosis by spectral Doppl er. GREAT VESSELS The aortic root is normal in size. The ascending aorta is normal in size. The pulmonary artery is nor mal. The IVC is normal in size and collapses >50% with inspiration. PERICARDIAL EFFUSION There is no evidence of significant pericardial effusion. Critical Notification Critical Value: No <Conclusion> The left ventricular systolic function is normal. The Ejection Fraction is 65-70%. There is normal LV segmental wall motion. Transmitral Doppler flow pattern is Grade I-abnormal relaxation pattern. There is no evidence of significant pericardial effusion. Injection of bubbles documented no definite evidence of an interatrial shunt.
[2017-03-24] MEDS ORDERED: CONTRAST GIVEN MC PRN (16:30)
--- NOTE | 2017-03-24 16:38 | PDOC1 ---
History and Physical Date of Admission Date of Admission 03/24/17 Identification/Chief Complaint Chief Complaint left side weakness Problems: Source Source: Caregiver, Chart review History of Present Illness History of Present Illness HPI HPI Patient is a 66 year old woman, history of hypertension, type 2 diabetes mellitus, obesity, coming to visit family from [facility] and decided to live in , was sent for left side weakness. Her grad daughter at bedside contributes for the history. as per ERP, pt is not compliant with her meds. Pt was found left facial droop yesterday 10am, then c/o left side leg weakness and then today left hand weakness. Aslo has some slurry speech today, not answer questions well to family. Patient has not had any injuries, no recent travel, no ingestions or exposures , patient denies any headache, any chest pain, shortness breath, any nausea or vomiting. When i saw pt in 650, pt was hard to arouse by family, then woke up herself, left hand paralyzed, left leg can move a little bit, left facial droop. failed bedside swallow study. head ct + stroke Past Medical History Cardiovascular: HTN CENTRAL NERVOUS SYSTEM: Other (headaches) GI: Other (she has been having some abdominal pain) Endocrine: Diabetes Past Surgical History Past Surgical History: Family History Family History: Hypertension Social History Smoke: No ALCOHOL: none Drugs: None Current Problem List Problem List Problems Medical Problems: (1) CVA (cerebral vascular accident) Status: Acute Current Medications Current Medications Current Medications Medications (Trade) Dose Ordered Sig/Mynor Start Time Stop Time Status Last Admin Dose Admin Acetaminophen (Acetaminophen Supp) 650 mg PRN Q6HRS PRN 03/24/17 13:45 Acetaminophen (Tylenol) 650 mg PRN Q6HRS PRN 03/24/17 13:45 Aspirin (Aspirin) 300 mg 1X ONCE 03/24/17 13:45 03/24/17 13:46 DC 03/24/17 13:45 300 MG Aspirin (Ecotrin) 325 mg DAILYWBKFT 03/25/17 08:00 Atorvastatin Calcium (Lipitor) 20 mg QHS 03/24/17 21:00 Ceftriaxone Sodium 1 gm/ Sodium Chloride 50 ml @ 100 mls/hr Q24H 03/25/17 14:00 Ceftriaxone Sodium 50 ml @ 100 mls/hr 1X ONCE 03/24/17 13:30 03/24/17 13:59 DC 03/24/17 13:33 100 MLS/HR Dextrose (Dextrose 50%-Water Syringe) 12.5 gm PRN Q15MIN PRN 03/24/17 12:30 Enoxaparin Sodium (Lovenox 40mg Syringe) 40 mg Q24H 03/24/17 15:00 03/24/17 14:32 40 MG Info (Do NOT chart on this entry -- for MONITORING) 1 each PRN DAILY PRN 03/24/17 16:30 03/26/17 16:29 Insulin Aspart (NovoLOG) 0-5 UNITS TIDWMEALS 03/24/17 17:00 Iohexol (Omnipaque 350 Mg/ml) 60 ml 1X ONCE 03/24/17 16:15 03/24/17 16:20 DC 03/24/17 16:25 60 ML Labetalol HCl (Normodyne) 10 mg PRN Q10MIN PRN 03/24/17 13:45 Ondansetron HCl (Zofran) 4 mg PRN Q8HRS PRN 03/24/17 13:30 03/25/17 13:29 Sodium Chloride 1,000 ml @ 100 mls/hr Q10H 03/24/17 14:00 03/24/17 14:00 100 MLS/HR Sodium Chloride (Normal Saline Flush) 3 ml QSHIFT PRN 03/24/17 13:45 Allergies Allergies Allergies Coded Allergies Type Severity Reaction Last Updated Verified No Known Drug Allergies 03/24/17 No ROS Review of System CONSTITUTIONAL: No fever or chills EYES: No recent changes SKIN: No rash or itching CARDIOVASCULAR: No chest pain, syncope, palpitations, or edema RESPIRATORY: No SOB or cough GASTROINTESTINAL: No nausea, vomiting or abdominal pain NEUROLOGICAL: No headaches or weakness ENDOCRINE: No cold or heat intolerance GENITOURINARY: No urgency or frequency of urination MUSCULOSKELETAL: No back pain or joint pain LYMPHATICS: No enlarged lymph nodes PSYCHIATRIC: No anxiety or depression Physical Exam Physical Exam GEN.: No apparent distress. Alert and oriented. HEENT: Head is normocephalic, atraumatic NECK: Supple. LUNGS: Clear to auscultation. HEART: RRR, S1, S2 present. Peripheral pulses intact ABDOMEN: Soft, nontender. Positive bowel sounds. EXTREMITIES: Without any cyanosis. NEUROLOGIC:LEFT facial droop. left hand strength 0/5, left leg 2/5. PSYCHIATRIC: Normal affect, normal mood. SKIN: No ulcerations Vitals Vitals Vital Signs Date Time Temp Pulse Resp B/P (MAP) Pulse Ox O2 Delivery O2 Flow Rate FiO2 03/24/17 14:30 97.9 51 18 177/68 (104) 96 Room Air 97.9 Labs Labs Laboratory Tests Test 03/24/17 11:33 03/24/17 11:50 03/24/17 12:25 03/24/17 16:17 Glucose (Fingerstick) 265 mg/dL (70-99) 147 mg/dL (70-99) White Blood Count 9.2 x10^3/uL (4.0-11.0) Red Blood Count 4.76 x10^6/uL (3.50-5.40) Hemoglobin 14.4 g/dL (12.0-15.5) Hematocrit 44.2 % (36.0-47.0) Mean Corpuscular Volume 93 fL (79-100) Mean Corpuscular Hemoglobin 30 pg (25-35) Mean Corpuscular Hemoglobin Concent 33 g/dL (31-37) Red Cell Distribution Width 12.7 % (11.5-14.5) Platelet Count 208 x10^3/uL (140-400) Neutrophils (%) (Auto) 73 % (31-73) Lymphocytes (%) (Auto) 20 % (24-48) Monocytes (%) (Auto) 6 % (0-9) Eosinophils (%) (Auto) 1 % (0-3) Basophils (%) (Auto) 1 % (0-3) Neutrophils # (Auto) 6.7 x10^3uL (1.8-7.7) Lymphocytes # (Auto) 1.8 x10^3/uL (1.0-4.8) Monocytes # (Auto) 0.5 x10^3/uL (0.0-1.1) Eosinophils # (Auto) 0.1 x10^3/uL (0.0-0.7) Basophils # (Auto) 0.1 x10^3/uL (0.0-0.2) Prothrombin Time 12.5 SEC (11.7-14.0) Prothromb Time International Ratio 1.0 (0.8-1.1) Activated Partial Thromboplast Time 25 SEC (24-38) Sodium Level 138 mmol/L (136-145) Potassium Level 4.2 mmol/L (3.5-5.1) Chloride Level 100 mmol/L (98-107) Carbon Dioxide Level 30 mmol/L (21-32) Anion Gap 8 (6-14) Blood Urea Nitrogen 19 mg/dL (7-20) Creatinine 1.1 mg/dL (0.6-1.0) Estimated GFR (Cockcroft-Gault) 49.4 BUN/Creatinine Ratio 17 (6-20) Glucose Level 309 mg/dL (70-99) Calcium Level 9.0 mg/dL (8.5-10.1) Total Bilirubin 0.6 mg/dL (0.2-1.0) Aspartate Amino Transf (AST/SGOT) 39 U/L (15-37) Alanine Aminotransferase (ALT/SGPT) 84 U/L (14-59) Alkaline Phosphatase 76 U/L (46-116) Troponin I Quantitative < 0.017 ng/mL (0.000-0.055) Total Protein 8.1 g/dL (6.4-8.2) Albumin 3.8 g/dL (3.4-5.0) Albumin/Globulin Ratio 0.9 (1.0-1.7) Urine Collection Type U cath Urine Color Yellow Urine Clarity Clear Urine pH 6.5 Urine Specific [place] 1.020 Urine Protein Negative mg/dL (NEG-TRACE) Urine Glucose (UA) >=1000 mg/dL (NEG) Urine Ketones (Stick) Negative mg/dL (NEG) Urine Blood Negative (NEG) Urine Nitrite Positive (NEG) Urine Bilirubin Negative (NEG) Urine Urobilinogen Dipstick 0.2 mg/dL (0.2 mg/dL) Urine Leukocyte Esterase Moderate (NEG) Urine RBC Rare /HPF (0-2) Urine WBC 11-20 /HPF (0-4) Urine Squamous Epithelial Cells Occ /LPF Urine Bacteria Many /HPF (0-FEW) Urine Opiates Screen Neg (NEG) Urine Methadone Screen Neg (NEG) Urine Barbiturates Neg (NEG) Urine Phencyclidine Screen Neg (NEG) Urine Amphetamine/Methamphetamine Neg (NEG) Urine Benzodiazepines Screen Neg (NEG) Urine Cocaine Screen Neg (NEG) Urine Cannabinoids Screen Neg (NEG) Urine Ethyl Alcohol Neg (NEG) Laboratory Tests Test 03/24/17 11:33 03/24/17 11:50 03/24/17 12:25 03/24/17 16:17 Glucose (Fingerstick) 265 mg/dL (70-99) 147 mg/dL (70-99) White Blood Count 9.2 x10^3/uL (4.0-11.0) Red Blood Count 4.76 x10^6/uL (3.50-5.40) Hemoglobin 14.4 g/dL (12.0-15.5) Hematocrit 44.2 % (36.0-47.0) Mean Corpuscular Volume 93 fL (79-100) Mean Corpuscular Hemoglobin 30 pg (25-35) Mean Corpuscular Hemoglobin Concent 33 g/dL (31-37) Red Cell Distribution Width 12.7 % (11.5-14.5) Platelet Count 208 x10^3/uL (140-400) Neutrophils (%) (Auto) 73 % (31-73) Lymphocytes (%) (Auto) 20 % (24-48) Monocytes (%) (Auto) 6 % (0-9) Eosinophils (%) (Auto) 1 % (0-3) Basophils (%) (Auto) 1 % (0-3) Neutrophils # (Auto) 6.7 x10^3uL (1.8-7.7) Lymphocytes # (Auto) 1.8 x10^3/uL (1.0-4.8) Monocytes # (Auto) 0.5 x10^3/uL (0.0-1.1) Eosinophils # (Auto) 0.1 x10^3/uL (0.0-0.7) Basophils # (Auto) 0.1 x10^3/uL (0.0-0.2) Prothrombin Time 12.5 SEC (11.7-14.0) Prothromb Time International Ratio 1.0 (0.8-1.1) Activated Partial Thromboplast Time 25 SEC (24-38) Sodium Level 138 mmol/L (136-145) Potassium Level 4.2 mmol/L (3.5-5.1) Chloride Level 100 mmol/L (98-107) Carbon Dioxide Level 30 mmol/L (21-32) Anion Gap 8 (6-14) Blood Urea Nitrogen 19 mg/dL (7-20) Creatinine 1.1 mg/dL (0.6-1.0) Estimated GFR (Cockcroft-Gault) 49.4 BUN/Creatinine Ratio 17 (6-20) Glucose Level 309 mg/dL (70-99) Calcium Level 9.0 mg/dL (8.5-10.1) Total Bilirubin 0.6 mg/dL (0.2-1.0) Aspartate Amino Transf (AST/SGOT) 39 U/L (15-37) Alanine Aminotransferase (ALT/SGPT) 84 U/L (14-59) Alkaline Phosphatase 76 U/L (46-116) Troponin I Quantitative < 0.017 ng/mL (0.000-0.055) Total Protein 8.1 g/dL (6.4-8.2) Albumin 3.8 g/dL (3.4-5.0) Albumin/Globulin Ratio 0.9 (1.0-1.7) Urine Collection Type U cath Urine Color Yellow Urine Clarity Clear Urine pH 6.5 Urine Specific [place] 1.020 Urine Protein Negative mg/dL (NEG-TRACE) Urine Glucose (UA) >=1000 mg/dL (NEG) Urine Ketones (Stick) Negative mg/dL (NEG) Urine Blood Negative (NEG) Urine Nitrite Positive (NEG) Urine Bilirubin Negative (NEG) Urine Urobilinogen Dipstick 0.2 mg/dL (0.2 mg/dL) Urine Leukocyte Esterase Moderate (NEG) Urine RBC Rare /HPF (0-2) Urine WBC 11-20 /HPF (0-4) Urine Squamous Epithelial Cells Occ /LPF Urine Bacteria Many /HPF (0-FEW) Urine Opiates Screen Neg (NEG) Urine Methadone Screen Neg (NEG) Urine Barbiturates Neg (NEG) Urine Phencyclidine Screen Neg (NEG) Urine Amphetamine/Methamphetamine Neg (NEG) Urine Benzodiazepines Screen Neg (NEG) Urine Cocaine Screen Neg (NEG) Urine Cannabinoids Screen Neg (NEG) Urine Ethyl Alcohol Neg (NEG) VTE Prophylaxis Ordered VTE Prophylaxis Devices: Yes VTE Pharmacological Prophylaxi: Yes Assessment/Plan Assessment/Plan ischemic stroke, including early subacute infarcts of the right cerebral hemisphere, largest of the right basal ganglia and goldsmith radiata in MRI dm2, uncontrolled htn dysphagia 2/2 stroke aphasia with stroke right carotid A occlusion POSSible uti sinus bradycardia plan: neuro consulted MRI, carotid US DONE as above echo pending CTA pending ASA, lipitor vascular consult keep BP high for tonight check hba1c, lipid panel need home meds swallow eval ceftriaxone for now, fu ucx dvt ppx ptot SW consult for possible SNF admit >2nights ANA SCOTT MD Mar 24, 2017 16:38
[2017-03-24] MEDS: INSULIN ASPART 300 UNITS/3 ML INSULN.PEN SQ SCH (17:00)
--- NOTE | 2017-03-24 17:11 | RAD ---
CT angiogram of the head and neck Indication: Left-sided weakness since yesterday. Right carotid artery occlusion. Technique: CT angiogram of the head and neck with IV contrast with multiplanar MIP reformats. Volume rendered post processing was also performed. Comparison: Head CT from the same day and carotid Doppler from the same day Findings: There is complete occlusion of the right common carotid artery and ICA to the level of petrous segment. There is significant atherosclerotic disease noted at the proximal left ICA with 33% degree of stenosis according to NASCET criteria. The right vertebral artery is patent with moderate atherosclerosis in the intracranial segment. The left vertebral artery is occluded. The basilar artery is patent without evidence of significant stenosis. The bilateral anterior cerebral arteries are patent without evidence of stenosis. The bilateral middle cerebral arteries are patent without evidence of stenosis. Right posterior recommended getting artery is patent without evidence of stenosis. Hypoplastic T1 segment of the left posterior cerebral artery is predominantly supplied by left posterior commuting artery. Hypoplastic right posterior to indicating artery. Bilateral superior cerebellar arteries are patent. Left and right anterior inferior cerebellar arteries are patent. Bilateral posterior inferior cerebellar arteries are not visualized. Significant atherosclerotic disease of bilateral cavernous carotid arteries and supraclinoid segments. Aortic arch calcifications noted. Significant noncalcified plaque seen at the proximal left subclavian artery. The dural sinuses are patent. Likely arachnoid granulation in the left transverse sinus. Visualized lung apices are clear. Trachea is patent. Impression: 1. 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 2. Complete occlusion of the left vertebral artery. 3. Significant atherosclerotic disease of the bilateral carotid siphon. 4. Approximately 33% narrowing of the left proximal ICA by using to NASCET criteria.
[2017-03-24] MEDS ORDERED: LOSA100T6 PO (17:40)
[2017-03-24] MEDS ORDERED: ASPI-482 PO (17:40)
[2017-03-24] MEDS ORDERED: ATOR40TA59 PO (17:40)
[2017-03-24 19:00] VITALS: BP 132/69
[2017-03-24] MEDS: ATORVASTATIN CALCIUM 20 MG TABLET PO SCH (19:22)
[2017-03-24 23:00] VITALS: BP 158/71
[2017-03-25] VITALS (8 sets, daily range): BP systolic 164–204; BP diastolic 62–77
[2017-03-25] MEDS: IV NORMAL SALINE 1000ML BAG 1,000 ML IV SCH ×2 (01:22)
[2017-03-25 02:19] LABS: CALCIUM 8.5 mg/dL (8.5-10.1); CREATININE 1.1 mg/dL (0.6-1.0); GFR 49.4; POTASSIUM 3.5 mmol/L (3.5-5.1)
[2017-03-25 04:29] LABS: BASO # 0.1 x10^3/uL (0.0-0.2); BASO % 1 % (0-3); EOS % 2 % (0-3); HEMATOCRIT 42.9 % (36.0-47.0); HEMOGLOBIN 13.9 g/dL (12.0-15.5); LYMPH # 2.8 x10^3/uL (1.0-4.8); LYMPH % 29 % (24-48); MEAN CORPUSCULAR HEMOGLOBIN 30 pg (25-35); MEAN CORPUSCULAR HGB CONC 32 g/dL (31-37); MEAN CORPUSCULAR VOLUME 93 fL (79-100); MONO % 7 % (0-9); NEUT % 61 % (31-73); PLATELET COUNT 202 x10^3/uL (140-400); RED CELL DISTRIBUTION WIDTH 12.5 % (11.5-14.5); WHITE BLOOD COUNT 9.7 x10^3/uL (4.0-11.0)
[2017-03-25 05:15] LABS: CHOLESTEROL/HDL RATIO 6.6
[2017-03-25] MEDS: INSULIN ASPART 300 UNITS/3 ML INSULN.PEN SQ SCH ×3 (08:00→17:00)
[2017-03-25] MEDS: ASPIRIN ENTERIC COATED 325 MG TABLET.DR. PO SCH (08:00)
--- NOTE | 2017-03-25 08:18 | PDOC2 ---
CONSULT Date of Consult Date of Consult DATE: 03/25/17 TIME: 08:13 Reason for Consult Reason for Consult: stroke and right internal carotid artery occlusion Past Medical History Cardiovascular: HTN CENTRAL NERVOUS SYSTEM: Other (headaches) GI: Other (she has been having some abdominal pain) Endocrine: Diabetes Past Surgical History Past Surgical History: Family History Family History: Hypertension Social History No ALCOHOL: none Drugs: None Current Problem List Problem List Problems Medical Problems: (1) CVA (cerebral vascular accident) Status: Acute Current Medications Current Medications Current Medications Insulin Aspart (NovoLOG) 0-5 UNITS TIDWMEALS SQ ; Start 03/24/17 at 17:00 Dextrose (Dextrose 50%-Water Syringe) 12.5 gm PRN Q15MIN PRN IV SEE COMMENTS; Start 03/24/17 at 12:30 Ceftriaxone Sodium 50 ml @ 100 mls/hr 1X ONCE IV Last administered on 13:33; Start 03/24/17 at 13:30; Stop 03/24/17 at 13:59; Status DC Ceftriaxone Sodium 1 gm/ Sodium Chloride 50 ml @ 100 mls/hr Q24H IV ; Start at 14:00 Ondansetron HCl (Zofran) 4 mg PRN Q8HRS PRN IV NAUSEA/VOMITING; Start 03/24/17 at 13:30; Stop 03/25/17 at 13:29 Sodium Chloride 1,000 ml @ 125 mls/hr Q8H IV Last administered on 03/24/17 13 :37; Start 03/24/17 at 13:45; Stop 03/25/17 at 13:44 Aspirin (Aspirin) 300 mg 1X ONCE NM Last administered on 03/24/17 13:45; Start 03/24/17 at 13:45; Stop 03/24/17 at 13:46; Status DC Sodium Chloride (Normal Saline Flush) 3 ml QSHIFT PRN IV AFTER MEDS AND BLOOD DRAWS; Start 03/24/17 at 13:45 Sodium Chloride 1,000 ml @ 100 mls/hr Q10H IV Last administered on 03/25/17 01:22; Start 03/24/17 at 14:00 Aspirin (Ecotrin) 325 mg DAILYWBKFT PO ; Start 03/25/17 at 08:00 Atorvastatin Calcium (Lipitor) 20 mg QHS PO ; Start 03/24/17 at 21:00 Labetalol HCl (Normodyne) 10 mg PRN Q10MIN PRN IV HYPERTENSION, SEE COMMENTS; Start 03/24/17 at 13:45 Acetaminophen (Tylenol) 650 mg PRN Q6HRS PRN PO FEVER; Start 03/24/17 at 13:45 Acetaminophen (Acetaminophen Supp) 650 mg PRN Q6HRS PRN NM FEVER; Start at 13:45 Enoxaparin Sodium (Lovenox 40mg Syringe) 40 mg Q24H SQ Last administered on 14:32; Start 03/24/17 at 15:00 Iohexol (Omnipaque 350 Mg/ml) 60 ml 1X ONCE IV Last administered on 03/24/17 16:25; Start 03/24/17 at 16:15; Stop 03/24/17 at 16:20; Status DC Info (Do NOT chart on this entry -- for MONITORING) 1 each PRN DAILY PRN MC SEE COMMENTS; Start 03/24/17 at 16:30; Stop 03/26/17 at 16:29 Ondansetron HCl (Zofran) 4 mg PRN Q6HRS PRN IV NAUSEA/VOMITING; Start 03/24/17 at 16:30 Active Scripts Active Reported Atorvastatin Calcium 40 Mg Tablet 1 Tab PO DAILY Losartan Potassium 100 Mg Tablet 100 Mg PO DAILY Aspir 81 (Aspirin) 81 Mg Tablet. 1 Tab PO DAILY Allergies Allergies: Coded Allergies: No Known Drug Allergies (Unverified , 03/24/17) Vitals VITALS Vital Signs Date Time Temp Pulse Resp B/P (MAP) Pulse Ox O2 Delivery O2 Flow Rate FiO2 03/25/17 03:12 98.1 72 20 164/76 (105) 96 Room Air 98.1 Labs Labs Laboratory Tests Test 03/24/17 11:33 03/24/17 11:50 03/24/17 12:25 03/24/17 16:17 Glucose (Fingerstick) 265 mg/dL (70-99) 147 mg/dL (70-99) White Blood Count 9.2 x10^3/uL (4.0-11.0) Red Blood Count 4.76 x10^6/uL (3.50-5.40) Hemoglobin 14.4 g/dL (12.0-15.5) Hematocrit 44.2 % (36.0-47.0) Mean Corpuscular Volume 93 fL (79-100) Mean Corpuscular Hemoglobin 30 pg (25-35) Mean Corpuscular Hemoglobin Concent 33 g/dL (31-37) Red Cell Distribution Width 12.7 % (11.5-14.5) Platelet Count 208 x10^3/uL (140-400) Neutrophils (%) (Auto) 73 % (31-73) Lymphocytes (%) (Auto) 20 % (24-48) Monocytes (%) (Auto) 6 % (0-9) Eosinophils (%) (Auto) 1 % (0-3) Basophils (%) (Auto) 1 % (0-3) Neutrophils # (Auto) 6.7 x10^3uL (1.8-7.7) Lymphocytes # (Auto) 1.8 x10^3/uL (1.0-4.8) Monocytes # (Auto) 0.5 x10^3/uL (0.0-1.1) Eosinophils # (Auto) 0.1 x10^3/uL (0.0-0.7) Basophils # (Auto) 0.1 x10^3/uL (0.0-0.2) Prothrombin Time 12.5 SEC (11.7-14.0) Prothromb Time International Ratio 1.0 (0.8-1.1) Activated Partial Thromboplast Time 25 SEC (24-38) Sodium Level 138 mmol/L (136-145) Potassium Level 4.2 mmol/L (3.5-5.1) Chloride Level 100 mmol/L (98-107) Carbon Dioxide Level 30 mmol/L (21-32) Anion Gap 8 (6-14) Blood Urea Nitrogen 19 mg/dL (7-20) Creatinine 1.1 mg/dL (0.6-1.0) Estimated GFR (Cockcroft-Gault) 49.4 BUN/Creatinine Ratio 17 (6-20) Glucose Level 309 mg/dL (70-99) Calcium Level 9.0 mg/dL (8.5-10.1) Total Bilirubin 0.6 mg/dL (0.2-1.0) Aspartate Amino Transf (AST/SGOT) 39 U/L (15-37) Alanine Aminotransferase (ALT/SGPT) 84 U/L (14-59) Alkaline Phosphatase 76 U/L (46-116) Troponin I Quantitative < 0.017 ng/mL (0.000-0.055) Total Protein 8.1 g/dL (6.4-8.2) Albumin 3.8 g/dL (3.4-5.0) Albumin/Globulin Ratio 0.9 (1.0-1.7) Urine Collection Type U cath Urine Color Yellow Urine Clarity Clear Urine pH 6.5 Urine Specific [place] 1.020 Urine Protein Negative mg/dL (NEG-TRACE) Urine Glucose (UA) >=1000 mg/dL (NEG) Urine Ketones (Stick) Negative mg/dL (NEG) Urine Blood Negative (NEG) Urine Nitrite Positive (NEG) Urine Bilirubin Negative (NEG) Urine Urobilinogen Dipstick 0.2 mg/dL (0.2 mg/dL) Urine Leukocyte Esterase Moderate (NEG) Urine RBC Rare /HPF (0-2) Urine WBC 11-20 /HPF (0-4) Urine Squamous Epithelial Cells Occ /LPF Urine Bacteria Many /HPF (0-FEW) Urine Opiates Screen Neg (NEG) Urine Methadone Screen Neg (NEG) Urine Barbiturates Neg (NEG) Urine Phencyclidine Screen Neg (NEG) Urine Amphetamine/Methamphetamine Neg (NEG) Urine Benzodiazepines Screen Neg (NEG) Urine Cocaine Screen Neg (NEG) Urine Cannabinoids Screen Neg (NEG) Urine Ethyl Alcohol Neg (NEG) Test 03/24/17 18:50 03/24/17 20:35 03/25/17 01:25 03/25/17 03:45 Troponin I Quantitative 0.017 ng/mL (0.000-0.055) < 0.017 ng/mL (0.000-0.055) Glucose (Fingerstick) 154 mg/dL (70-99) White Blood Count 9.7 x10^3/uL (4.0-11.0) Red Blood Count 4.60 x10^6/uL (3.50-5.40) Hemoglobin 13.9 g/dL (12.0-15.5) Hematocrit 42.9 % (36.0-47.0) Mean Corpuscular Volume 93 fL (79-100) Mean Corpuscular Hemoglobin 30 pg (25-35) Mean Corpuscular Hemoglobin Concent 32 g/dL (31-37) Red Cell Distribution Width 12.5 % (11.5-14.5) Platelet Count 202 x10^3/uL (140-400) Neutrophils (%) (Auto) 61 % (31-73) Lymphocytes (%) (Auto) 29 % (24-48) Monocytes (%) (Auto) 7 % (0-9) Eosinophils (%) (Auto) 2 % (0-3) Basophils (%) (Auto) 1 % (0-3) Neutrophils # (Auto) 5.9 x10^3uL (1.8-7.7) Lymphocytes # (Auto) 2.8 x10^3/uL (1.0-4.8) Monocytes # (Auto) 0.7 x10^3/uL (0.0-1.1) Eosinophils # (Auto) 0.2 x10^3/uL (0.0-0.7) Basophils # (Auto) 0.1 x10^3/uL (0.0-0.2) Sodium Level 140 mmol/L (136-145) Potassium Level 3.5 mmol/L (3.5-5.1) Chloride Level 104 mmol/L (98-107) Carbon Dioxide Level 26 mmol/L (21-32) Anion Gap 10 (6-14) Blood Urea Nitrogen 14 mg/dL (7-20) Creatinine 1.1 mg/dL (0.6-1.0) Estimated GFR (Cockcroft-Gault) 49.4 Glucose Level 180 mg/dL (70-99) Calcium Level 8.5 mg/dL (8.5-10.1) Triglycerides Level 185 mg/dL (0-150) Cholesterol Level 232 mg/dL (0-200) LDL Cholesterol, Calculated 160 mg/dL (0-100) VLDL Cholesterol, Calculated 37 mg/dL (0-40) Non-HDL Cholesterol Calculated 197 mg/dL (0-129) HDL Cholesterol 35 mg/dL (40-60) Cholesterol/HDL Ratio 6.6 Test 03/25/17 07:17 Glucose (Fingerstick) 184 mg/dL (70-99) Laboratory Tests Test 03/24/17 11:33 03/24/17 11:50 03/24/17 12:25 03/24/17 16:17 Glucose (Fingerstick) 265 mg/dL (70-99) 147 mg/dL (70-99) White Blood Count 9.2 x10^3/uL (4.0-11.0) Red Blood Count 4.76 x10^6/uL (3.50-5.40) Hemoglobin 14.4 g/dL (12.0-15.5) Hematocrit 44.2 % (36.0-47.0) Mean Corpuscular Volume 93 fL (79-100) Mean Corpuscular Hemoglobin 30 pg (25-35) Mean Corpuscular Hemoglobin Concent 33 g/dL (31-37) Red Cell Distribution Width 12.7 % (11.5-14.5) Platelet Count 208 x10^3/uL (140-400) Neutrophils (%) (Auto) 73 % (31-73) Lymphocytes (%) (Auto) 20 % (24-48) Monocytes (%) (Auto) 6 % (0-9) Eosinophils (%) (Auto) 1 % (0-3) Basophils (%) (Auto) 1 % (0-3) Neutrophils # (Auto) 6.7 x10^3uL (1.8-7.7) Lymphocytes # (Auto) 1.8 x10^3/uL (1.0-4.8) Monocytes # (Auto) 0.5 x10^3/uL (0.0-1.1) Eosinophils # (Auto) 0.1 x10^3/uL (0.0-0.7) Basophils # (Auto) 0.1 x10^3/uL (0.0-0.2) Prothrombin Time 12.5 SEC (11.7-14.0) Prothromb Time International Ratio 1.0 (0.8-1.1) Activated Partial Thromboplast Time 25 SEC (24-38) Sodium Level 138 mmol/L (136-145) Potassium Level 4.2 mmol/L (3.5-5.1) Chloride Level 100 mmol/L (98-107) Carbon Dioxide Level 30 mmol/L (21-32) Anion Gap 8 (6-14) Blood Urea Nitrogen 19 mg/dL (7-20) Creatinine 1.1 mg/dL (0.6-1.0) Estimated GFR (Cockcroft-Gault) 49.4 BUN/Creatinine Ratio 17 (6-20) Glucose Level 309 mg/dL (70-99) Calcium Level 9.0 mg/dL (8.5-10.1) Total Bilirubin 0.6 mg/dL (0.2-1.0) Aspartate Amino Transf (AST/SGOT) 39 U/L (15-37) Alanine Aminotransferase (ALT/SGPT) 84 U/L (14-59) Alkaline Phosphatase 76 U/L (46-116) Troponin I Quantitative < 0.017 ng/mL (0.000-0.055) Total Protein 8.1 g/dL (6.4-8.2) Albumin 3.8 g/dL (3.4-5.0) Albumin/Globulin Ratio 0.9 (1.0-1.7) Urine Collection Type U cath Urine Color Yellow Urine Clarity Clear Urine pH 6.5 Urine Specific [place] 1.020 Urine Protein Negative mg/dL (NEG-TRACE) Urine Glucose (UA) >=1000 mg/dL (NEG) Urine Ketones (Stick) Negative mg/dL (NEG) Urine Blood Negative (NEG) Urine Nitrite Positive (NEG) Urine Bilirubin Negative (NEG) Urine Urobilinogen Dipstick 0.2 mg/dL (0.2 mg/dL) Urine Leukocyte Esterase Moderate (NEG) Urine RBC Rare /HPF (0-2) Urine WBC 11-20 /HPF (0-4) Urine Squamous Epithelial Cells Occ /LPF Urine Bacteria Many /HPF (0-FEW) Urine Opiates Screen Neg (NEG) Urine Methadone Screen Neg (NEG) Urine Barbiturates Neg (NEG) Urine Phencyclidine Screen Neg (NEG) Urine Amphetamine/Methamphetamine Neg (NEG) Urine Benzodiazepines Screen Neg (NEG) Urine Cocaine Screen Neg (NEG) Urine Cannabinoids Screen Neg (NEG) Urine Ethyl Alcohol Neg (NEG) Test 03/24/17 18:50 03/24/17 20:35 03/25/17 01:25 03/25/17 03:45 Troponin I Quantitative 0.017 ng/mL (0.000-0.055) < 0.017 ng/mL (0.000-0.055) Glucose (Fingerstick) 154 mg/dL (70-99) White Blood Count 9.7 x10^3/uL (4.0-11.0) Red Blood Count 4.60 x10^6/uL (3.50-5.40) Hemoglobin 13.9 g/dL (12.0-15.5) Hematocrit 42.9 % (36.0-47.0) Mean Corpuscular Volume 93 fL (79-100) Mean Corpuscular Hemoglobin 30 pg (25-35) Mean Corpuscular Hemoglobin Concent 32 g/dL (31-37) Red Cell Distribution Width 12.5 % (11.5-14.5) Platelet Count 202 x10^3/uL (140-400) Neutrophils (%) (Auto) 61 % (31-73) Lymphocytes (%) (Auto) 29 % (24-48) Monocytes (%) (Auto) 7 % (0-9) Eosinophils (%) (Auto) 2 % (0-3) Basophils (%) (Auto) 1 % (0-3) Neutrophils # (Auto) 5.9 x10^3uL (1.8-7.7) Lymphocytes # (Auto) 2.8 x10^3/uL (1.0-4.8) Monocytes # (Auto) 0.7 x10^3/uL (0.0-1.1) Eosinophils # (Auto) 0.2 x10^3/uL (0.0-0.7) Basophils # (Auto) 0.1 x10^3/uL (0.0-0.2) Sodium Level 140 mmol/L (136-145) Potassium Level 3.5 mmol/L (3.5-5.1) Chloride Level 104 mmol/L (98-107) Carbon Dioxide Level 26 mmol/L (21-32) Anion Gap 10 (6-14) Blood Urea Nitrogen 14 mg/dL (7-20) Creatinine 1.1 mg/dL (0.6-1.0) Estimated GFR (Cockcroft-Gault) 49.4 Glucose Level 180 mg/dL (70-99) Calcium Level 8.5 mg/dL (8.5-10.1) Triglycerides Level 185 mg/dL (0-150) Cholesterol Level 232 mg/dL (0-200) LDL Cholesterol, Calculated 160 mg/dL (0-100) VLDL Cholesterol, Calculated 37 mg/dL (0-40) Non-HDL Cholesterol Calculated 197 mg/dL (0-129) HDL Cholesterol 35 mg/dL (40-60) Cholesterol/HDL Ratio 6.6 Test 8/24/17 07:17 Glucose (Fingerstick) 184 mg/dL (70-99) Images Images reviewed cartid duplex scan and CTA of the head and neck Assessment/Plan Assessment/Plan Vascular consult dictated Imp: 1. 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 obesity Rec: 1. no indication for surgical intervention 2. antiplatelet therapy 3. risk factor modification for atherosclerosis 4. PT/OT 5. f/u carotid duplex in 6 mos. JOVANI ESPARZA II, MD Mar 25, 2017 08:18
--- NOTE | 2017-03-25 08:52 | CONS ---
DATE OF CONSULTATION: 03/25/2017 CLINICAL HISTORY: This is a 66-year-old non-[place]ian speaking female who presented with complaints of left leg and arm weakness 2 days ago. We have been asked to evaluate her. She has had no prior history of stroke, seizure or head injury. The patient has had multiple imaging studies including a carotid duplex scan which shows occlusion of the right internal carotid artery. A CT angiogram demonstrates occlusion of the right common carotid artery and internal carotid artery on the right. There is approximate 30% stenosis of the left internal carotid system and occlusion of the left vertebral artery. The patient currently is comfortable. History is obtained from her granddaughter who was present in the room. PAST MEDICAL HISTORY: Significant for headaches. PAST SURGICAL HISTORY: She has had a . FAMILY HISTORY: Hypertension. SOCIAL HISTORY: She is . She does not smoke and she is not a diabetic. CURRENT MEDICATIONS: Reviewed. REVIEW OF SYSTEMS: Not obtained, because of language barrier. PHYSICAL EXAMINATION: GENERAL: The patient is alert and awake. She has normal appearance. HEAD: Normocephalic and atraumatic. NECK: Carotids are 2+ on the left. Absent carotid pulse on the right. CHEST: Clear. ABDOMEN: Soft and nontender. EXTREMITIES: Palpable femoral, popliteal and pedal pulses. She is by history weak on the left arm and leg. She is unable to walk at this point. LABORATORY EVALUATION: Reviewed. IMPRESSION: 1. Acute right hemispheric stroke, likely due to occlusion of the right internal and common carotid arteries. 2. A 30% stenosis of the left internal carotid artery. RECOMMENDATIONS: 1. Antiplatelet therapy. 2. Physical therapy. 3. No surgical intervention is warranted at this time. I recommend a followup carotid duplex scan in 6 months. Thank you for allowing me to evaluate her. JOVANI ESPARZA MD DR: MELLY/aylin JOB#: [id number] / [id number]
[2017-03-25] MEDS: AMINO AC 3%/ELECTROLYTE/GLYCER 1,000 ML IV SCH ×2 (09:21→20:10)
--- NOTE | 2017-03-25 09:56 | PDOC ---
PROGRESS NOTES Assessment Problems Medical Problems: (1) CVA (cerebral vascular accident) Status: Acute Stroke related to right carotid artery occlusion Also has left vertebral artery occlusion Left carotid artery is patent Hyperlipidemia Plan I again explained to the patient's daughter the grave situation. The patient is stable so I do not think that she needs, for instance, decompressive craniectomy. Heparin is not helpful in this situation Vascular surgery help appreciated Rehabilitation modalities ProcalAmine I anticipate she will need a PEG tube but reasonable to wait over the weekend to see if she does regain swallowing Check follow-up head CT tomorrow Discussed fully with patient and her daughter. Subjective Patient denies complaints. Objective Vital Signs Date Time Temp Pulse Resp B/P (MAP) Pulse Ox O2 Delivery O2 Flow Rate FiO2 03/25/17 07:05 97.9 68 20 182/71 (108) 92 Room Air 97.9 Intake and Output 03/25/17 07:00 Intake Total 1000 ml Output Total 100 ml Balance 900 ml Intake Oral 0 ml IV Total 1000 ml Output Urine Total 100 ml # Voids 4 PHYSICAL EXAM Alert. Oriented to person. PERRL. EOMI. CN: Left field cut, left central facial weakness Muscle tone: normal. Muscle strength: 3/5 on left DTR: 2+ Plantar reflex: Flexor on right, extensor on left Gait: not examined in bed. Sensory exam: Left hemisensory loss No cerebellar signs elicited, out of proportion to the weakness. Review of Relevant I have reviewed the following items tamie (where applicable) has been applied. Labs Laboratory Tests Test 03/24/17 11:33 03/24/17 11:50 03/24/17 12:25 03/24/17 16:17 Glucose (Fingerstick) 265 mg/dL (70-99) 147 mg/dL (70-99) White Blood Count 9.2 x10^3/uL (4.0-11.0) Red Blood Count 4.76 x10^6/uL (3.50-5.40) Hemoglobin 14.4 g/dL (12.0-15.5) Hematocrit 44.2 % (36.0-47.0) Mean Corpuscular Volume 93 fL (79-100) Mean Corpuscular Hemoglobin 30 pg (25-35) Mean Corpuscular Hemoglobin Concent 33 g/dL (31-37) Red Cell Distribution Width 12.7 % (11.5-14.5) Platelet Count 208 x10^3/uL (140-400) Neutrophils (%) (Auto) 73 % (31-73) Lymphocytes (%) (Auto) 20 % (24-48) Monocytes (%) (Auto) 6 % (0-9) Eosinophils (%) (Auto) 1 % (0-3) Basophils (%) (Auto) 1 % (0-3) Neutrophils # (Auto) 6.7 x10^3uL (1.8-7.7) Lymphocytes # (Auto) 1.8 x10^3/uL (1.0-4.8) Monocytes # (Auto) 0.5 x10^3/uL (0.0-1.1) Eosinophils # (Auto) 0.1 x10^3/uL (0.0-0.7) Basophils # (Auto) 0.1 x10^3/uL (0.0-0.2) Prothrombin Time 12.5 SEC (11.7-14.0) Prothromb Time International Ratio 1.0 (0.8-1.1) Activated Partial Thromboplast Time 25 SEC (24-38) Sodium Level 138 mmol/L (136-145) Potassium Level 4.2 mmol/L (3.5-5.1) Chloride Level 100 mmol/L (98-107) Carbon Dioxide Level 30 mmol/L (21-32) Anion Gap 8 (6-14) Blood Urea Nitrogen 19 mg/dL (7-20) Creatinine 1.1 mg/dL (0.6-1.0) Estimated GFR (Cockcroft-Gault) 49.4 BUN/Creatinine Ratio 17 (6-20) Glucose Level 309 mg/dL (70-99) Calcium Level 9.0 mg/dL (8.5-10.1) Total Bilirubin 0.6 mg/dL (0.2-1.0) Aspartate Amino Transf (AST/SGOT) 39 U/L (15-37) Alanine Aminotransferase (ALT/SGPT) 84 U/L (14-59) Alkaline Phosphatase 76 U/L (46-116) Troponin I Quantitative < 0.017 ng/mL (0.000-0.055) Total Protein 8.1 g/dL (6.4-8.2) Albumin 3.8 g/dL (3.4-5.0) Albumin/Globulin Ratio 0.9 (1.0-1.7) Urine Collection Type U cath Urine Color Yellow Urine Clarity Clear Urine pH 6.5 Urine Specific [place] 1.020 Urine Protein Negative mg/dL (NEG-TRACE) Urine Glucose (UA) >=1000 mg/dL (NEG) Urine Ketones (Stick) Negative mg/dL (NEG) Urine Blood Negative (NEG) Urine Nitrite Positive (NEG) Urine Bilirubin Negative (NEG) Urine Urobilinogen Dipstick 0.2 mg/dL (0.2 mg/dL) Urine Leukocyte Esterase Moderate (NEG) Urine RBC Rare /HPF (0-2) Urine WBC 11-20 /HPF (0-4) Urine Squamous Epithelial Cells Occ /LPF Urine Bacteria Many /HPF (0-FEW) Urine Opiates Screen Neg (NEG) Urine Methadone Screen Neg (NEG) Urine Barbiturates Neg (NEG) Urine Phencyclidine Screen Neg (NEG) Urine Amphetamine/Methamphetamine Neg (NEG) Urine Benzodiazepines Screen Neg (NEG) Urine Cocaine Screen Neg (NEG) Urine Cannabinoids Screen Neg (NEG) Urine Ethyl Alcohol Neg (NEG) Test 03/24/17 18:50 03/24/17 20:35 03/25/17 01:25 03/25/17 03:45 Troponin I Quantitative 0.017 ng/mL (0.000-0.055) < 0.017 ng/mL (0.000-0.055) Glucose (Fingerstick) 154 mg/dL (70-99) White Blood Count 9.7 x10^3/uL (4.0-11.0) Red Blood Count 4.60 x10^6/uL (3.50-5.40) Hemoglobin 13.9 g/dL (12.0-15.5) Hematocrit 42.9 % (36.0-47.0) Mean Corpuscular Volume 93 fL (79-100) Mean Corpuscular Hemoglobin 30 pg (25-35) Mean Corpuscular Hemoglobin Concent 32 g/dL (31-37) Red Cell Distribution Width 12.5 % (11.5-14.5) Platelet Count 202 x10^3/uL (140-400) Neutrophils (%) (Auto) 61 % (31-73) Lymphocytes (%) (Auto) 29 % (24-48) Monocytes (%) (Auto) 7 % (0-9) Eosinophils (%) (Auto) 2 % (0-3) Basophils (%) (Auto) 1 % (0-3) Neutrophils # (Auto) 5.9 x10^3uL (1.8-7.7) Lymphocytes # (Auto) 2.8 x10^3/uL (1.0-4.8) Monocytes # (Auto) 0.7 x10^3/uL (0.0-1.1) Eosinophils # (Auto) 0.2 x10^3/uL (0.0-0.7) Basophils # (Auto) 0.1 x10^3/uL (0.0-0.2) Sodium Level 140 mmol/L (136-145) Potassium Level 3.5 mmol/L (3.5-5.1) Chloride Level 104 mmol/L (98-107) Carbon Dioxide Level 26 mmol/L (21-32) Anion Gap 10 (6-14) Blood Urea Nitrogen 14 mg/dL (7-20) Creatinine 1.1 mg/dL (0.6-1.0) Estimated GFR (Cockcroft-Gault) 49.4 Glucose Level 180 mg/dL (70-99) Calcium Level 8.5 mg/dL (8.5-10.1) Triglycerides Level 185 mg/dL (0-150) Cholesterol Level 232 mg/dL (0-200) LDL Cholesterol, Calculated 160 mg/dL (0-100) VLDL Cholesterol, Calculated 37 mg/dL (0-40) Non-HDL Cholesterol Calculated 197 mg/dL (0-129) HDL Cholesterol 35 mg/dL (40-60) Cholesterol/HDL Ratio 6.6 Test 03/25/17 07:17 Glucose (Fingerstick) 184 mg/dL (70-99) Laboratory Tests Test 03/24/17 11:33 03/24/17 11:50 03/24/17 12:25 03/24/17 16:17 Glucose (Fingerstick) 265 mg/dL (70-99) 147 mg/dL (70-99) White Blood Count 9.2 x10^3/uL (4.0-11.0) Red Blood Count 4.76 x10^6/uL (3.50-5.40) Hemoglobin 14.4 g/dL (12.0-15.5) Hematocrit 44.2 % (36.0-47.0) Mean Corpuscular Volume 93 fL (79-100) Mean Corpuscular Hemoglobin 30 pg (25-35) Mean Corpuscular Hemoglobin Concent 33 g/dL (31-37) Red Cell Distribution Width 12.7 % (11.5-14.5) Platelet Count 208 x10^3/uL (140-400) Neutrophils (%) (Auto) 73 % (31-73) Lymphocytes (%) (Auto) 20 % (24-48) Monocytes (%) (Auto) 6 % (0-9) Eosinophils (%) (Auto) 1 % (0-3) Basophils (%) (Auto) 1 % (0-3) Neutrophils # (Auto) 6.7 x10^3uL (1.8-7.7) Lymphocytes # (Auto) 1.8 x10^3/uL (1.0-4.8) Monocytes # (Auto) 0.5 x10^3/uL (0.0-1.1) Eosinophils # (Auto) 0.1 x10^3/uL (0.0-0.7) Basophils # (Auto) 0.1 x10^3/uL (0.0-0.2) Prothrombin Time 12.5 SEC (11.7-14.0) Prothromb Time International Ratio 1.0 (0.8-1.1) Activated Partial Thromboplast Time 25 SEC (24-38) Sodium Level 138 mmol/L (136-145) Potassium Level 4.2 mmol/L (3.5-5.1) Chloride Level 100 mmol/L (98-107) Carbon Dioxide Level 30 mmol/L (21-32) Anion Gap 8 (6-14) Blood Urea Nitrogen 19 mg/dL (7-20) Creatinine 1.1 mg/dL (0.6-1.0) Estimated GFR (Cockcroft-Gault) 49.4 BUN/Creatinine Ratio 17 (6-20) Glucose Level 309 mg/dL (70-99) Calcium Level 9.0 mg/dL (8.5-10.1) Total Bilirubin 0.6 mg/dL (0.2-1.0) Aspartate Amino Transf (AST/SGOT) 39 U/L (15-37) Alanine Aminotransferase (ALT/SGPT) 84 U/L (14-59) Alkaline Phosphatase 76 U/L (46-116) Troponin I Quantitative < 0.017 ng/mL (0.000-0.055) Total Protein 8.1 g/dL (6.4-8.2) Albumin 3.8 g/dL (3.4-5.0) Albumin/Globulin Ratio 0.9 (1.0-1.7) Urine Collection Type U cath Urine Color Yellow Urine Clarity Clear Urine pH 6.5 Urine Specific [place] 1.020 Urine Protein Negative mg/dL (NEG-TRACE) Urine Glucose (UA) >=1000 mg/dL (NEG) Urine Ketones (Stick) Negative mg/dL (NEG) Urine Blood Negative (NEG) Urine Nitrite Positive (NEG) Urine Bilirubin Negative (NEG) Urine Urobilinogen Dipstick 0.2 mg/dL (0.2 mg/dL) Urine Leukocyte Esterase Moderate (NEG) Urine RBC Rare /HPF (0-2) Urine WBC 11-20 /HPF (0-4) Urine Squamous Epithelial Cells Occ /LPF Urine Bacteria Many /HPF (0-FEW) Urine Opiates Screen Neg (NEG) Urine Methadone Screen Neg (NEG) Urine Barbiturates Neg (NEG) Urine Phencyclidine Screen Neg (NEG) Urine Amphetamine/Methamphetamine Neg (NEG) Urine Benzodiazepines Screen Neg (NEG) Urine Cocaine Screen Neg (NEG) Urine Cannabinoids Screen Neg (NEG) Urine Ethyl Alcohol Neg (NEG) Test 03/24/17 18:50 03/24/17 20:35 03/25/17 01:25 03/25/17 03:45 Troponin I Quantitative 0.017 ng/mL (0.000-0.055) < 0.017 ng/mL (0.000-0.055) Glucose (Fingerstick) 154 mg/dL (70-99) White Blood Count 9.7 x10^3/uL (4.0-11.0) Red Blood Count 4.60 x10^6/uL (3.50-5.40) Hemoglobin 13.9 g/dL (12.0-15.5) Hematocrit 42.9 % (36.0-47.0) Mean Corpuscular Volume 93 fL (79-100) Mean Corpuscular Hemoglobin 30 pg (25-35) Mean Corpuscular Hemoglobin Concent 32 g/dL (31-37) Red Cell Distribution Width 12.5 % (11.5-14.5) Platelet Count 202 x10^3/uL (140-400) Neutrophils (%) (Auto) 61 % (31-73) Lymphocytes (%) (Auto) 29 % (24-48) Monocytes (%) (Auto) 7 % (0-9) Eosinophils (%) (Auto) 2 % (0-3) Basophils (%) (Auto) 1 % (0-3) Neutrophils # (Auto) 5.9 x10^3uL (1.8-7.7) Lymphocytes # (Auto) 2.8 x10^3/uL (1.0-4.8) Monocytes # (Auto) 0.7 x10^3/uL (0.0-1.1) Eosinophils # (Auto) 0.2 x10^3/uL (0.0-0.7) Basophils # (Auto) 0.1 x10^3/uL (0.0-0.2) Sodium Level 140 mmol/L (136-145) Potassium Level 3.5 mmol/L (3.5-5.1) Chloride Level 104 mmol/L (98-107) Carbon Dioxide Level 26 mmol/L (21-32) Anion Gap 10 (6-14) Blood Urea Nitrogen 14 mg/dL (7-20) Creatinine 1.1 mg/dL (0.6-1.0) Estimated GFR (Cockcroft-Gault) 49.4 Glucose Level 180 mg/dL (70-99) Calcium Level 8.5 mg/dL (8.5-10.1) Triglycerides Level 185 mg/dL (0-150) Cholesterol Level 232 mg/dL (0-200) LDL Cholesterol, Calculated 160 mg/dL (0-100) VLDL Cholesterol, Calculated 37 mg/dL (0-40) Non-HDL Cholesterol Calculated 197 mg/dL (0-129) HDL Cholesterol 35 mg/dL (40-60) Cholesterol/HDL Ratio 6.6 Test 03/25/17 07:17 Glucose (Fingerstick) 184 mg/dL (70-99) Medications Current Medications Insulin Aspart (NovoLOG) 0-5 UNITS TIDWMEALS SQ ; Start 03/24/17 at 17:00 Dextrose (Dextrose 50%-Water Syringe) 12.5 gm PRN Q15MIN PRN IV SEE COMMENTS; Start 03/24/17 at 12:30 Ceftriaxone Sodium 50 ml @ 100 mls/hr 1X ONCE IV Last administered on 13:33; Start 03/24/17 at 13:30; Stop 03/24/17 at 13:59; Status DC Ceftriaxone Sodium 1 gm/ Sodium Chloride 50 ml @ 100 mls/hr Q24H IV ; Start at 14:00 Ondansetron HCl (Zofran) 4 mg PRN Q8HRS PRN IV NAUSEA/VOMITING; Start 03/24/17 at 13:30; Stop 03/25/17 at 13:29 Sodium Chloride 1,000 ml @ 125 mls/hr Q8H IV Last administered on 03/24/17 13 :37; Start 03/24/17 at 13:45; Stop 03/25/17 at 08:53; Status DC Aspirin (Aspirin) 300 mg 1X ONCE MD Last administered on 03/24/17 13:45; Start 03/24/17 at 13:45; Stop 03/24/17 at 13:46; Status DC Sodium Chloride (Normal Saline Flush) 3 ml QSHIFT PRN IV AFTER MEDS AND BLOOD DRAWS; Start 03/24/17 at 13:45 Sodium Chloride 1,000 ml @ 100 mls/hr Q10H IV Last administered on 03/25/17 01:22; Start 03/24/17 at 14:00; Stop 03/25/17 at 08:53; Status DC Aspirin (Ecotrin) 325 mg DAILYWBKFT PO ; Start 03/25/17 at 08:00 Atorvastatin Calcium (Lipitor) 20 mg QHS PO ; Start 03/24/17 at 21:00 Labetalol HCl (Normodyne) 10 mg PRN Q10MIN PRN IV HYPERTENSION, SEE COMMENTS; Start 03/24/17 at 13:45 Acetaminophen (Tylenol) 650 mg PRN Q6HRS PRN PO FEVER; Start 03/24/17 at 13:45 Acetaminophen (Acetaminophen Supp) 650 mg PRN Q6HRS PRN MD FEVER; Start at 13:45 Enoxaparin Sodium (Lovenox 40mg Syringe) 40 mg Q24H SQ Last administered on 14:32; Start 03/24/17 at 15:00 Iohexol (Omnipaque 350 Mg/ml) 60 ml 1X ONCE IV Last administered on 03/24/17 16:25; Start 03/24/17 at 16:15; Stop 03/24/17 at 16:20; Status DC Info (Do NOT chart on this entry -- for MONITORING) 1 each PRN DAILY PRN MC SEE COMMENTS; Start 03/24/17 at 16:30; Stop 03/26/17 at 16:29 Ondansetron HCl (Zofran) 4 mg PRN Q6HRS PRN IV NAUSEA/VOMITING; Start 03/24/17 at 16:30 Amino Acids/ Glycerin/ Electrolytes 1,000 ml @ 80 mls/hr [id number] IV Last administered on 03/25/17 09:21; Start 03/25/17 at 09:30 Active Scripts Active Reported Atorvastatin Calcium 40 Mg Tablet 1 Tab PO DAILY Losartan Potassium 100 Mg Tablet 100 Mg PO DAILY Aspir 81 (Aspirin) 81 Mg Tablet. 1 Tab PO DAILY Vitals/I & O Vital Sign - Last 24 Hours 03/24/17 03/24/17 03/24/17 03/24/17 11:33 11:45 12:02 12:17 Temp 98.1 98.1 Pulse 64 62 56 54 Resp 18 18 16 16 B/P (MAP) 176/79 (111) 159/74 (102) 150/67 (94) 151/66 (94) Pulse Ox 95 97 97 96 O2 Delivery Room Air Room Air 03/24/17 03/24/17 03/24/17 03/24/17 12:32 12:47 13:17 13:50 Temp 98.6 98.6 Pulse 54 52 50 52 Resp 16 16 18 18 B/P (MAP) 143/65 (91) 141/63 (89) 162/74 (103) 154/69 (97) Pulse Ox 95 95 97 96 O2 Delivery Room Air Room Air Room Air 03/24/17 03/24/17 03/24/17 03/24/17 14:30 19:00 20:01 23:00 Temp 97.9 98.8 98.4 97.9 98.8 98.4 Pulse 51 59 56 Resp 18 20 20 B/P (MAP) 177/68 (104) 132/69 (90) 158/71 (100) Pulse Ox 96 100 96 O2 Delivery Room Air Room Air Room Air Room Air 03/25/17 03/25/17 03:12 07:05 Temp 98.1 97.9 98.1 97.9 Pulse 72 68 Resp 20 20 B/P (MAP) 164/76 (105) 182/71 (108) Pulse Ox 96 92 O2 Delivery Room Air Room Air Intake and Output 03/24/17 03/24/17 03/25/17 15:00 23:00 07:00 Intake Total 0 ml 1000 ml Output Total 100 ml Balance 0 ml 900 ml Images CTA: Findings: There is complete occlusion of the right common carotid artery and ICA to the level of petrous segment. There is significant atherosclerotic disease noted at the proximal left ICA with 33% degree of stenosis according to NASCET criteria. The right vertebral artery is patent with moderate atherosclerosis in the intracranial segment. The left vertebral artery is occluded. The basilar artery is patent without evidence of significant stenosis. The bilateral anterior cerebral arteries are patent without evidence of stenosis. The bilateral middle cerebral arteries are patent without evidence of stenosis. Right posterior recommended getting artery is patent without evidence of stenosis. Hypoplastic T1 segment of the left posterior cerebral artery is predominantly supplied by left posterior commuting artery. Hypoplastic right posterior to indicating artery. Bilateral superior cerebellar arteries are patent. Left and right anterior inferior cerebellar arteries are patent. Bilateral posterior inferior cerebellar arteries are not visualized. Significant atherosclerotic disease of bilateral cavernous carotid arteries and supraclinoid segments. Aortic arch calcifications noted. Significant noncalcified plaque seen at the proximal left subclavian artery. The dural sinuses are patent. Likely arachnoid granulation in the left transverse sinus. Visualized lung apices are clear. Trachea is patent. Impression: 1. 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 2. Complete occlusion of the left vertebral artery. 3. Significant atherosclerotic disease of the bilateral carotid siphon. 4. Approximately 33% narrowing of the left proximal ICA by using to NASCET criteria. Echo: LEFT VENTRICLE The left ventricle is normal size. There is mild concentric left ventricular hypertrophy. The left ventricular systolic function is normal. The Ejection Fraction is 65-70%. There is normal LV segmental wall motion. Transmitral Doppler flow pattern is Grade I-abnormal relaxation pattern. No left ventricle thrombus noted on this study. There is no ventricular septal defect visualized. RIGHT VENTRICLE The right ventricle is normal size. There is normal right ventricular wall thickness. The right ventricular systolic function is normal. ATRIA The left atrium size is normal. The right atrium size is normal. The interatrial septum is intact with no evidence for an atrial septal defect or patent foramen ovale as noted on 2-D or Doppler imaging. Injection of bubbles documented no definite evidenceof an interatrial shunt. AORTIC VALVE The aortic valve is mildly sclerotic. The aortic valve is trileaflet. Doppler and Color Flow revealed no significant aortic regurgitation. There is no significant aortic valvular stenosis. MITRAL VALVE Mitral annular calcification is moderate. The mitral valve leaflets are thickened. There is no evidence of mitral valve prolapse. There is no mitral valve stenosis. Doppler and Color Flow revealed no mitral valve regurgitation noted. TRICUSPID VALVE Doppler and Color Flow revealed no tricuspid valve regurgitation noted. Unable to determine pulmonary artery pressure at exam time. PULMONIC VALVE The pulmonary valve is not well visualized but appears to open adequately. Doppler and Color Flow revealed trace pulmonic valvular regurgitation. There is no pulmonic valvular stenosis by spectral Doppler. GREAT VESSELS Echocardiogram: The aortic root is normal in size. The ascending aorta is normal in size. The pulmonary artery is normal. The IVC is normal in size and collapses >50% with inspiration. PERICARDIAL EFFUSION There is no evidence of significant pericardial effusion. Critical Notification Critical Value: No <Conclusion> The left ventricular systolic function is normal. The Ejection Fraction is 65-70%. There is normal LV segmental wall motion. Transmitral Doppler flow pattern is Grade I-abnormal relaxation pattern. There is no evidence of significant pericardial effusion. Injection of bubbles documented no definite evidence of an interatrial shunt. ETIENNE TRAORE MD Mar 25, 2017 09:56
--- NOTE | 2017-03-25 12:11 | PDOC2 ---
GI CONSULT Reason For Consult: PEG 03/29 HPI: HPI: 66 y/o [place] female s/p stroke, has carotid artery occlusion, failed swallow study. GI asked to see re: possible PEG placement next week. Granddaughter present to translate. Pt's daughter is on her way from [place]. NPO on PPN. No other GI concerns per RN. PMH: PMH: per chart, granddaughter - headaches, DM, HTN, FH: Family History: No pertinent hx, Hypertension Social History: Smoke: No ALCOHOL: none Drugs: None ROS: Unable to obtain. Vitals: Vitals: Vital Signs Date Time Temp Pulse Resp B/P (MAP) Pulse Ox O2 Delivery O2 Flow Rate FiO2 03/25/17 10:50 98.6 66 18 170/62 (98) 96 Room Air 98.6 Labs: Labs: Laboratory Tests Test 03/24/17 12:25 03/24/17 16:17 03/24/17 18:50 03/24/17 20:35 Urine Collection Type U cath Urine Color Yellow Urine Clarity Clear Urine pH 6.5 Urine Specific [place] 1.020 Urine Protein Negative mg/dL (NEG-TRACE) Urine Glucose (UA) >=1000 mg/dL (NEG) Urine Ketones (Stick) Negative mg/dL (NEG) Urine Blood Negative (NEG) Urine Nitrite Positive (NEG) Urine Bilirubin Negative (NEG) Urine Urobilinogen Dipstick 0.2 mg/dL (0.2 mg/dL) Urine Leukocyte Esterase Moderate (NEG) Urine RBC Rare /HPF (0-2) Urine WBC 11-20 /HPF (0-4) Urine Squamous Epithelial Cells Occ /LPF Urine Bacteria Many /HPF (0-FEW) Urine Opiates Screen Neg (NEG) Urine Methadone Screen Neg (NEG) Urine Barbiturates Neg (NEG) Urine Phencyclidine Screen Neg (NEG) Urine Amphetamine/Methamphetamine Neg (NEG) Urine Benzodiazepines Screen Neg (NEG) Urine Cocaine Screen Neg (NEG) Urine Cannabinoids Screen Neg (NEG) Urine Ethyl Alcohol Neg (NEG) Glucose (Fingerstick) 147 mg/dL (70-99) 154 mg/dL (70-99) Troponin I Quantitative 0.017 ng/mL (0.000-0.055) Test 03/25/17 01:25 03/25/17 03:45 03/25/17 07:17 Troponin I Quantitative < 0.017 ng/mL (0.000-0.055) White Blood Count 9.7 x10^3/uL (4.0-11.0) Red Blood Count 4.60 x10^6/uL (3.50-5.40) Hemoglobin 13.9 g/dL (12.0-15.5) Hematocrit 42.9 % (36.0-47.0) Mean Corpuscular Volume 93 fL (79-100) Mean Corpuscular Hemoglobin 30 pg (25-35) Mean Corpuscular Hemoglobin Concent 32 g/dL (31-37) Red Cell Distribution Width 12.5 % (11.5-14.5) Platelet Count 202 x10^3/uL (140-400) Neutrophils (%) (Auto) 61 % (31-73) Lymphocytes (%) (Auto) 29 % (24-48) Monocytes (%) (Auto) 7 % (0-9) Eosinophils (%) (Auto) 2 % (0-3) Basophils (%) (Auto) 1 % (0-3) Neutrophils # (Auto) 5.9 x10^3uL (1.8-7.7) Lymphocytes # (Auto) 2.8 x10^3/uL (1.0-4.8) Monocytes # (Auto) 0.7 x10^3/uL (0.0-1.1) Eosinophils # (Auto) 0.2 x10^3/uL (0.0-0.7) Basophils # (Auto) 0.1 x10^3/uL (0.0-0.2) Sodium Level 140 mmol/L (136-145) Potassium Level 3.5 mmol/L (3.5-5.1) Chloride Level 104 mmol/L (98-107) Carbon Dioxide Level 26 mmol/L (21-32) Anion Gap 10 (6-14) Blood Urea Nitrogen 14 mg/dL (7-20) Creatinine 1.1 mg/dL (0.6-1.0) Estimated GFR (Cockcroft-Gault) 49.4 Glucose Level 180 mg/dL (70-99) Calcium Level 8.5 mg/dL (8.5-10.1) Triglycerides Level 185 mg/dL (0-150) Cholesterol Level 232 mg/dL (0-200) LDL Cholesterol, Calculated 160 mg/dL (0-100) VLDL Cholesterol, Calculated 37 mg/dL (0-40) Non-HDL Cholesterol Calculated 197 mg/dL (0-129) HDL Cholesterol 35 mg/dL (40-60) Cholesterol/HDL Ratio 6.6 Glucose (Fingerstick) 184 mg/dL (70-99) Allergies: Coded Allergies: No Known Drug Allergies (Unverified , 03/24/17) Medications: Current Medications Medications (Trade) Dose Ordered Sig/Mynor Route PRN Reason Start Time Stop Time Status Last Admin Dose Admin Ceftriaxone Sodium 50 ml @ 100 mls/hr 1X ONCE IV 03/24/17 13:30 03/24/17 13:59 DC 03/24/17 13:33 Sodium Chloride 1,000 ml @ 125 mls/hr Q8H IV 03/24/17 13:45 03/25/17 08:53 DC 03/24/17 13:37 Aspirin (Aspirin) 300 mg 1X ONCE OH 03/24/17 13:45 03/24/17 13:46 DC 03/24/17 13:45 Sodium Chloride 1,000 ml @ 100 mls/hr Q10H IV 03/24/17 14:00 03/25/17 08:53 DC 03/25/17 01:22 Enoxaparin Sodium (Lovenox 40mg Syringe) 40 mg Q24H SQ 03/24/17 15:00 03/24/17 14:32 Iohexol (Omnipaque 350 Mg/ml) 60 ml 1X ONCE IV 03/24/17 16:15 03/24/17 16:20 DC 03/24/17 16:25 Amino Acids/ Glycerin/ Electrolytes 1,000 ml @ 80 mls/hr [id number] IV 03/25/17 09:30 03/25/17 09:21 Imaging: Imaging: Head/Neck CTA Impression: 1. 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 2. Complete occlusion of the left vertebral artery. 3. Significant atherosclerotic disease of the bilateral carotid siphon. 4. Approximately 33% narrowing of the left proximal ICA by using to NASCET criteria. Brain MRI Impression: 1. There are early subacute infarcts of the right cerebral hemisphere, largest of the right basal ganglia and goldsmith radiata as stated. There is abnormal signal in the right internal carotid artery at the skull base compatible with thromboembolism, may be occluded or nearly occluded. There is also some abnormal signal of the left intradural vertebral artery. 2. Other scattered T2 and FLAIR hyperintense abnormality of the supratentorial white matter is probably due to chronic microvascular ischemic disease. There are old lacunar infarcts as stated. 3. There is generalized supratentorial atrophy. Carotid Doppler study IMPRESSION: 1. 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 2. Moderate atherosclerotic plaquing at the left carotid bifurcation with underlying luminal narrowing of the proximal internal carotid artery in the 0-50 % diameter range. Head CT Impression: 1. No acute intracranial bleed. 2. Low-attenuation area within right basal ganglia (1.1 cm) likely infarct, age indeterminate. If concern for acute ischemic stroke is high, please consider MRI brain. 3. Confluent periventricular and deep white matter low attenuation most likely represents sequela of chronic microvascular ischemia. CXR Impression: No acute cardiopulmonary process. CROWD CONTROLLER Bedside Swallow Eval Bedside swallow eval completed earlier this date. IMPRESSIONS: Moderate oropharyngeal dysphagia w/evidence of poss SILENT aspiration on honey thick liquids. Pt w/acute R CVA and dysarthria (per family report pt's speech is 'slurred' in her [place] language of [place]). Time NPO required is unclear. Will f/u for improvement and progress toward po. RECOMMENDATIONS: NPO meds and nutrition. NPO posted bedside PE: GEN: NAD, up to chair HEENT: Atraumatic LUNGS: CTAB HEART: RRR ABD:BS+, non-tender, wearing walking belt EXTREMITY: No edema SKIN: No rashes, no jaundice NEURO/PSYCH: awake, mumbles A/P: A/P: CVA, carotid artery disease, dysphagia -- Briefly discussed PEG procedure w/ granddaughter, will discuss further when pt' s daughter arrives (who apparently is DPOA). JOSE MANDEL Mar 25, 2017 12:11
--- NOTE | 2017-03-25 12:23 | PDOC ---
PROGRESS NOTES Chief Complaint Chief Complaint CVA with left sided weakness PMH: htn Type 2 DM - uncontrolled Obesity Not compliant with meds History of Present Illness History of Present Illness Pt is laying right lateral recumbent in bed. Pt is unable to move left arm, is able to move both feet. Pt speaks chukese, granddaughter was bedside and helping translate Spoke with RN, speech therapy will be back to re-evaluate pt for a swallow test. Pt failed prior swallow test. Vitals Vitals Vital Signs Date Time Temp Pulse Resp B/P (MAP) Pulse Ox O2 Delivery O2 Flow Rate FiO2 03/25/17 10:50 98.6 66 18 170/62 (98) 96 Room Air 98.6 Physical Exam General: Cooperative, Other (arousable and following commands) Heart: Regular rate Lungs: Clear Abdomen: Soft, No tenderness Extremities: No clubbing, No cyanosis, No edema, Other (left arm paralyzed) Skin: No rashes, No breakdown Labs LABS Laboratory Tests Test 03/24/17 12:25 03/24/17 16:17 03/24/17 18:50 03/24/17 20:35 Urine Collection Type U cath Urine Color Yellow Urine Clarity Clear Urine pH 6.5 Urine Specific [place] 1.020 Urine Protein Negative mg/dL (NEG-TRACE) Urine Glucose (UA) >=1000 mg/dL (NEG) Urine Ketones (Stick) Negative mg/dL (NEG) Urine Blood Negative (NEG) Urine Nitrite Positive (NEG) Urine Bilirubin Negative (NEG) Urine Urobilinogen Dipstick 0.2 mg/dL (0.2 mg/dL) Urine Leukocyte Esterase Moderate (NEG) Urine RBC Rare /HPF (0-2) Urine WBC 11-20 /HPF (0-4) Urine Squamous Epithelial Cells Occ /LPF Urine Bacteria Many /HPF (0-FEW) Urine Opiates Screen Neg (NEG) Urine Methadone Screen Neg (NEG) Urine Barbiturates Neg (NEG) Urine Phencyclidine Screen Neg (NEG) Urine Amphetamine/Methamphetamine Neg (NEG) Urine Benzodiazepines Screen Neg (NEG) Urine Cocaine Screen Neg (NEG) Urine Cannabinoids Screen Neg (NEG) Urine Ethyl Alcohol Neg (NEG) Glucose (Fingerstick) 147 mg/dL (70-99) 154 mg/dL (70-99) Troponin I Quantitative 0.017 ng/mL (0.000-0.055) Test 03/25/17 01:25 03/25/17 03:45 03/25/17 07:17 Troponin I Quantitative < 0.017 ng/mL (0.000-0.055) White Blood Count 9.7 x10^3/uL (4.0-11.0) Red Blood Count 4.60 x10^6/uL (3.50-5.40) Hemoglobin 13.9 g/dL (12.0-15.5) Hematocrit 42.9 % (36.0-47.0) Mean Corpuscular Volume 93 fL (79-100) Mean Corpuscular Hemoglobin 30 pg (25-35) Mean Corpuscular Hemoglobin Concent 32 g/dL (31-37) Red Cell Distribution Width 12.5 % (11.5-14.5) Platelet Count 202 x10^3/uL (140-400) Neutrophils (%) (Auto) 61 % (31-73) Lymphocytes (%) (Auto) 29 % (24-48) Monocytes (%) (Auto) 7 % (0-9) Eosinophils (%) (Auto) 2 % (0-3) Basophils (%) (Auto) 1 % (0-3) Neutrophils # (Auto) 5.9 x10^3uL (1.8-7.7) Lymphocytes # (Auto) 2.8 x10^3/uL (1.0-4.8) Monocytes # (Auto) 0.7 x10^3/uL (0.0-1.1) Eosinophils # (Auto) 0.2 x10^3/uL (0.0-0.7) Basophils # (Auto) 0.1 x10^3/uL (0.0-0.2) Sodium Level 140 mmol/L (136-145) Potassium Level 3.5 mmol/L (3.5-5.1) Chloride Level 104 mmol/L (98-107) Carbon Dioxide Level 26 mmol/L (21-32) Anion Gap 10 (6-14) Blood Urea Nitrogen 14 mg/dL (7-20) Creatinine 1.1 mg/dL (0.6-1.0) Estimated GFR (Cockcroft-Gault) 49.4 Glucose Level 180 mg/dL (70-99) Calcium Level 8.5 mg/dL (8.5-10.1) Triglycerides Level 185 mg/dL (0-150) Cholesterol Level 232 mg/dL (0-200) LDL Cholesterol, Calculated 160 mg/dL (0-100) VLDL Cholesterol, Calculated 37 mg/dL (0-40) Non-HDL Cholesterol Calculated 197 mg/dL (0-129) HDL Cholesterol 35 mg/dL (40-60) Cholesterol/HDL Ratio 6.6 Glucose (Fingerstick) 184 mg/dL (70-99) Review of Systems Review of Systems pt arousable and cooperative, however ROS limited by aphasia Unable to move left arm Assessment and Plan Assessmemt and Plan Problems Medical Problems: (1) CVA (cerebral vascular accident) Status: Acute 1. Ischemic stroke - Dr. Manzano consulted 2. Dysphagia - NPO, failed swallow test, speech therapy to re-evaluate 3. Right carotid artery occlusion - Consult Vascular surgery per neurology 4. PT/OT 5. Consult social sciences chair for SNU/SNF evaluation 6. Continue abx for UTI 7. DVT prophylaxis - lovenox 8. Recheck labs - CBC, BMP 9. Appreciate subspecialty input Problems: Comment Review of Relevant I have reviewed the following items tamie (where applicable) has been applied. Labs Laboratory Tests Test 03/24/17 11:33 03/24/17 11:50 03/24/17 12:25 03/24/17 16:17 Glucose (Fingerstick) 265 mg/dL (70-99) 147 mg/dL (70-99) White Blood Count 9.2 x10^3/uL (4.0-11.0) Red Blood Count 4.76 x10^6/uL (3.50-5.40) Hemoglobin 14.4 g/dL (12.0-15.5) Hematocrit 44.2 % (36.0-47.0) Mean Corpuscular Volume 93 fL (79-100) Mean Corpuscular Hemoglobin 30 pg (25-35) Mean Corpuscular Hemoglobin Concent 33 g/dL (31-37) Red Cell Distribution Width 12.7 % (11.5-14.5) Platelet Count 208 x10^3/uL (140-400) Neutrophils (%) (Auto) 73 % (31-73) Lymphocytes (%) (Auto) 20 % (24-48) Monocytes (%) (Auto) 6 % (0-9) Eosinophils (%) (Auto) 1 % (0-3) Basophils (%) (Auto) 1 % (0-3) Neutrophils # (Auto) 6.7 x10^3uL (1.8-7.7) Lymphocytes # (Auto) 1.8 x10^3/uL (1.0-4.8) Monocytes # (Auto) 0.5 x10^3/uL (0.0-1.1) Eosinophils # (Auto) 0.1 x10^3/uL (0.0-0.7) Basophils # (Auto) 0.1 x10^3/uL (0.0-0.2) Prothrombin Time 12.5 SEC (11.7-14.0) Prothromb Time International Ratio 1.0 (0.8-1.1) Activated Partial Thromboplast Time 25 SEC (24-38) Sodium Level 138 mmol/L (136-145) Potassium Level 4.2 mmol/L (3.5-5.1) Chloride Level 100 mmol/L (98-107) Carbon Dioxide Level 30 mmol/L (21-32) Anion Gap 8 (6-14) Blood Urea Nitrogen 19 mg/dL (7-20) Creatinine 1.1 mg/dL (0.6-1.0) Estimated GFR (Cockcroft-Gault) 49.4 BUN/Creatinine Ratio 17 (6-20) Glucose Level 309 mg/dL (70-99) Calcium Level 9.0 mg/dL (8.5-10.1) Total Bilirubin 0.6 mg/dL (0.2-1.0) Aspartate Amino Transf (AST/SGOT) 39 U/L (15-37) Alanine Aminotransferase (ALT/SGPT) 84 U/L (14-59) Alkaline Phosphatase 76 U/L (46-116) Troponin I Quantitative < 0.017 ng/mL (0.000-0.055) Total Protein 8.1 g/dL (6.4-8.2) Albumin 3.8 g/dL (3.4-5.0) Albumin/Globulin Ratio 0.9 (1.0-1.7) Urine Collection Type U cath Urine Color Yellow Urine Clarity Clear Urine pH 6.5 Urine Specific [place] 1.020 Urine Protein Negative mg/dL (NEG-TRACE) Urine Glucose (UA) >=1000 mg/dL (NEG) Urine Ketones (Stick) Negative mg/dL (NEG) Urine Blood Negative (NEG) Urine Nitrite Positive (NEG) Urine Bilirubin Negative (NEG) Urine Urobilinogen Dipstick 0.2 mg/dL (0.2 mg/dL) Urine Leukocyte Esterase Moderate (NEG) Urine RBC Rare /HPF (0-2) Urine WBC 11-20 /HPF (0-4) Urine Squamous Epithelial Cells Occ /LPF Urine Bacteria Many /HPF (0-FEW) Urine Opiates Screen Neg (NEG) Urine Methadone Screen Neg (NEG) Urine Barbiturates Neg (NEG) Urine Phencyclidine Screen Neg (NEG) Urine Amphetamine/Methamphetamine Neg (NEG) Urine Benzodiazepines Screen Neg (NEG) Urine Cocaine Screen Neg (NEG) Urine Cannabinoids Screen Neg (NEG) Urine Ethyl Alcohol Neg (NEG) Test 03/24/17 18:50 03/24/17 20:35 03/25/17 01:25 03/25/17 03:45 Troponin I Quantitative 0.017 ng/mL (0.000-0.055) < 0.017 ng/mL (0.000-0.055) Glucose (Fingerstick) 154 mg/dL (70-99) White Blood Count 9.7 x10^3/uL (4.0-11.0) Red Blood Count 4.60 x10^6/uL (3.50-5.40) Hemoglobin 13.9 g/dL (12.0-15.5) Hematocrit 42.9 % (36.0-47.0) Mean Corpuscular Volume 93 fL (79-100) Mean Corpuscular Hemoglobin 30 pg (25-35) Mean Corpuscular Hemoglobin Concent 32 g/dL (31-37) Red Cell Distribution Width 12.5 % (11.5-14.5) Platelet Count 202 x10^3/uL (140-400) Neutrophils (%) (Auto) 61 % (31-73) Lymphocytes (%) (Auto) 29 % (24-48) Monocytes (%) (Auto) 7 % (0-9) Eosinophils (%) (Auto) 2 % (0-3) Basophils (%) (Auto) 1 % (0-3) Neutrophils # (Auto) 5.9 x10^3uL (1.8-7.7) Lymphocytes # (Auto) 2.8 x10^3/uL (1.0-4.8) Monocytes # (Auto) 0.7 x10^3/uL (0.0-1.1) Eosinophils # (Auto) 0.2 x10^3/uL (0.0-0.7) Basophils # (Auto) 0.1 x10^3/uL (0.0-0.2) Sodium Level 140 mmol/L (136-145) Potassium Level 3.5 mmol/L (3.5-5.1) Chloride Level 104 mmol/L (98-107) Carbon Dioxide Level 26 mmol/L (21-32) Anion Gap 10 (6-14) Blood Urea Nitrogen 14 mg/dL (7-20) Creatinine 1.1 mg/dL (0.6-1.0) Estimated GFR (Cockcroft-Gault) 49.4 Glucose Level 180 mg/dL (70-99) Calcium Level 8.5 mg/dL (8.5-10.1) Triglycerides Level 185 mg/dL (0-150) Cholesterol Level 232 mg/dL (0-200) LDL Cholesterol, Calculated 160 mg/dL (0-100) VLDL Cholesterol, Calculated 37 mg/dL (0-40) Non-HDL Cholesterol Calculated 197 mg/dL (0-129) HDL Cholesterol 35 mg/dL (40-60) Cholesterol/HDL Ratio 6.6 Test 03/25/17 07:17 Glucose (Fingerstick) 184 mg/dL (70-99) Laboratory Tests Test 03/24/17 12:25 03/24/17 16:17 03/24/17 18:50 03/24/17 20:35 Urine Collection Type U cath Urine Color Yellow Urine Clarity Clear Urine pH 6.5 Urine Specific [place] 1.020 Urine Protein Negative mg/dL (NEG-TRACE) Urine Glucose (UA) >=1000 mg/dL (NEG) Urine Ketones (Stick) Negative mg/dL (NEG) Urine Blood Negative (NEG) Urine Nitrite Positive (NEG) Urine Bilirubin Negative (NEG) Urine Urobilinogen Dipstick 0.2 mg/dL (0.2 mg/dL) Urine Leukocyte Esterase Moderate (NEG) Urine RBC Rare /HPF (0-2) Urine WBC 11-20 /HPF (0-4) Urine Squamous Epithelial Cells Occ /LPF Urine Bacteria Many /HPF (0-FEW) Urine Opiates Screen Neg (NEG) Urine Methadone Screen Neg (NEG) Urine Barbiturates Neg (NEG) Urine Phencyclidine Screen Neg (NEG) Urine Amphetamine/Methamphetamine Neg (NEG) Urine Benzodiazepines Screen Neg (NEG) Urine Cocaine Screen Neg (NEG) Urine Cannabinoids Screen Neg (NEG) Urine Ethyl Alcohol Neg (NEG) Glucose (Fingerstick) 147 mg/dL (70-99) 154 mg/dL (70-99) Troponin I Quantitative 0.017 ng/mL (0.000-0.055) Test 03/25/17 01:25 03/25/17 03:45 03/25/17 07:17 Troponin I Quantitative < 0.017 ng/mL (0.000-0.055) White Blood Count 9.7 x10^3/uL (4.0-11.0) Red Blood Count 4.60 x10^6/uL (3.50-5.40) Hemoglobin 13.9 g/dL (12.0-15.5) Hematocrit 42.9 % (36.0-47.0) Mean Corpuscular Volume 93 fL (79-100) Mean Corpuscular Hemoglobin 30 pg (25-35) Mean Corpuscular Hemoglobin Concent 32 g/dL (31-37) Red Cell Distribution Width 12.5 % (11.5-14.5) Platelet Count 202 x10^3/uL (140-400) Neutrophils (%) (Auto) 61 % (31-73) Lymphocytes (%) (Auto) 29 % (24-48) Monocytes (%) (Auto) 7 % (0-9) Eosinophils (%) (Auto) 2 % (0-3) Basophils (%) (Auto) 1 % (0-3) Neutrophils # (Auto) 5.9 x10^3uL (1.8-7.7) Lymphocytes # (Auto) 2.8 x10^3/uL (1.0-4.8) Monocytes # (Auto) 0.7 x10^3/uL (0.0-1.1) Eosinophils # (Auto) 0.2 x10^3/uL (0.0-0.7) Basophils # (Auto) 0.1 x10^3/uL (0.0-0.2) Sodium Level 140 mmol/L (136-145) Potassium Level 3.5 mmol/L (3.5-5.1) Chloride Level 104 mmol/L (98-107) Carbon Dioxide Level 26 mmol/L (21-32) Anion Gap 10 (6-14) Blood Urea Nitrogen 14 mg/dL (7-20) Creatinine 1.1 mg/dL (0.6-1.0) Estimated GFR (Cockcroft-Gault) 49.4 Glucose Level 180 mg/dL (70-99) Calcium Level 8.5 mg/dL (8.5-10.1) Triglycerides Level 185 mg/dL (0-150) Cholesterol Level 232 mg/dL (0-200) LDL Cholesterol, Calculated 160 mg/dL (0-100) VLDL Cholesterol, Calculated 37 mg/dL (0-40) Non-HDL Cholesterol Calculated 197 mg/dL (0-129) HDL Cholesterol 35 mg/dL (40-60) Cholesterol/HDL Ratio 6.6 Glucose (Fingerstick) 184 mg/dL (70-99) Medications Current Medications Insulin Aspart (NovoLOG) 0-5 UNITS TIDWMEALS SQ ; Start 03/24/17 at 17:00 Dextrose (Dextrose 50%-Water Syringe) 12.5 gm PRN Q15MIN PRN IV SEE COMMENTS; Start 03/24/17 at 12:30 Ceftriaxone Sodium 50 ml @ 100 mls/hr 1X ONCE IV Last administered on 13:33; Start 03/24/17 at 13:30; Stop 03/24/17 at 13:59; Status DC Ceftriaxone Sodium 1 gm/ Sodium Chloride 50 ml @ 100 mls/hr Q24H IV ; Start at 14:00 Ondansetron HCl (Zofran) 4 mg PRN Q8HRS PRN IV NAUSEA/VOMITING; Start 03/24/17 at 13:30; Stop 03/25/17 at 13:29 Sodium Chloride 1,000 ml @ 125 mls/hr Q8H IV Last administered on 03/24/17 13 :37; Start 03/24/17 at 13:45; Stop 03/25/17 at 08:53; Status DC Aspirin (Aspirin) 300 mg 1X ONCE PA Last administered on 03/24/17 13:45; Start 03/24/17 at 13:45; Stop 03/24/17 at 13:46; Status DC Sodium Chloride (Normal Saline Flush) 3 ml QSHIFT PRN IV AFTER MEDS AND BLOOD DRAWS; Start 03/24/17 at 13:45 Sodium Chloride 1,000 ml @ 100 mls/hr Q10H IV Last administered on 03/25/17 01:22; Start 03/24/17 at 14:00; Stop 03/25/17 at 08:53; Status DC Aspirin (Ecotrin) 325 mg [id number] PO ; Start 03/25/17 at 08:00 Atorvastatin Calcium (Lipitor) 20 mg QHS PO ; Start 03/24/17 at 21:00 Labetalol HCl (Normodyne) 10 mg PRN Q10MIN PRN IV HYPERTENSION, SEE COMMENTS; Start 03/24/17 at 13:45 Acetaminophen (Tylenol) 650 mg PRN Q6HRS PRN PO FEVER; Start 03/24/17 at 13:45 Acetaminophen (Acetaminophen Supp) 650 mg PRN Q6HRS PRN PA FEVER; Start at 13:45 Enoxaparin Sodium (Lovenox 40mg Syringe) 40 mg Q24H SQ Last administered on 14:32; Start 03/24/17 at 15:00 Iohexol (Omnipaque 350 Mg/ml) 60 ml 1X ONCE IV Last administered on 03/24/17 16:25; Start 03/24/17 at 16:15; Stop 03/24/17 at 16:20; Status DC Info (Do NOT chart on this entry -- for MONITORING) 1 each PRN DAILY PRN MC SEE COMMENTS; Start 03/24/17 at 16:30; Stop 03/26/17 at 16:29 Ondansetron HCl (Zofran) 4 mg PRN Q6HRS PRN IV NAUSEA/VOMITING; Start 03/24/17 at 16:30 Amino Acids/ Glycerin/ Electrolytes 1,000 ml @ 80 mls/hr [id number] IV Last administered on 03/25/17 09:21; Start 03/25/17 at 09:30 Active Scripts Active Reported Atorvastatin Calcium 40 Mg Tablet 1 Tab PO DAILY Losartan Potassium 100 Mg Tablet 100 Mg PO DAILY Aspir 81 (Aspirin) 81 Mg Tablet. 1 Tab PO DAILY Vitals/I & O Vital Sign - Last 24 Hours 03/24/17 03/24/17 03/24/17 03/24/17 12:17 12:32 12:47 13:17 Pulse 54 54 52 50 Resp 16 16 16 18 B/P (MAP) 151/66 (94) 143/65 (91) 141/63 (89) 162/74 (103) Pulse Ox 96 95 95 97 O2 Delivery Room Air Room Air 03/24/17 03/24/17 03/24/17 03/24/17 13:50 14:30 19:00 20:01 Temp 98.6 97.9 98.8 98.6 97.9 98.8 Pulse 52 51 59 Resp 18 18 20 B/P (MAP) 154/69 (97) 177/68 (104) 132/69 (90) Pulse Ox 96 96 100 O2 Delivery Room Air Room Air Room Air Room Air 03/24/17 03/25/17 03/25/17 03/25/17 23:00 03:12 07:05 08:00 Temp 98.4 98.1 97.9 98.4 98.1 97.9 Pulse 56 72 68 Resp 20 20 20 B/P (MAP) 158/71 (100) 164/76 (105) 182/71 (108) Pulse Ox 96 96 92 O2 Delivery Room Air Room Air Room Air Room Air 03/25/17 10:50 Temp 98.6 98.6 Pulse 66 Resp 18 B/P (MAP) 170/62 (98) Pulse Ox 96 O2 Delivery Room Air Intake and Output 03/24/17 03/24/17 03/25/17 15:00 23:00 07:00 Intake Total 0 ml 1000 ml Output Total 100 ml Balance 0 ml 900 ml CHAGO VERGARA III DO Mar 25, 2017 12:23
[2017-03-25] MEDS: ENOXAPARIN 40 MG/0.4 ML SYRINGE. SQ SCH (15:42)
[2017-03-25] MEDS: ATORVASTATIN CALCIUM 20 MG TABLET PO SCH (20:02)
[2017-03-26] MEDS: AMINO AC 3%/ELECTROLYTE/GLYCER 1,000 ML IV SCH ×2 (00:12→17:33)
[2017-03-26] MEDS: ACETAMINOPHEN 650 MG SUPP.RECT. PR PRN ×2 (00:50→09:38)
[2017-03-26 03:00] VITALS: BP 179/73
[2017-03-26 05:44] LABS: BASO # 0.1 x10^3/uL (0.0-0.2); BASO % 1 % (0-3); EOS % 1 % (0-3); HEMATOCRIT 42.7 % (36.0-47.0); HEMOGLOBIN 14.6 g/dL (12.0-15.5); LYMPH # 1.7 x10^3/uL (1.0-4.8); LYMPH % 16 % (24-48); MEAN CORPUSCULAR HEMOGLOBIN 31 pg (25-35); MEAN CORPUSCULAR HGB CONC 34 g/dL (31-37); MEAN CORPUSCULAR VOLUME 91 fL (79-100); MONO % 5 % (0-9); NEUT % 77 % (31-73); PLATELET COUNT 211 x10^3/uL (140-400); RED CELL DISTRIBUTION WIDTH 12.8 % (11.5-14.5); WHITE BLOOD COUNT 10.8 x10^3/uL (4.0-11.0)
[2017-03-26 05:57] LABS: GFR 55.1; POTASSIUM 3.4 mmol/L (3.5-5.1)
[2017-03-26 07:00] VITALS: BP 185/59
[2017-03-26] MEDS: ASPIRIN ENTERIC COATED 325 MG TABLET.DR. PO SCH (08:00)
[2017-03-26] MEDS: INSULIN ASPART 300 UNITS/3 ML INSULN.PEN SQ SCH ×3 (09:41→17:43)
--- NOTE | 2017-03-26 10:01 | RAD ---
CT head without IV contrast Indication: Follow-up for CVA Technique: CT head without IV contrast Comparison: Previous CT head from 03/24/2017 Findings: Ill-defined area of low-attenuation is seen in the right frontal lobe in the periventricular region and a separate area is seen in the right basal ganglia. The area in the right frontal lobe periventricular region approximately measures 4.0 x 1.8 cm, previously 2.6 x 1.0 cm. The low attenuating lesion in the right basal ganglia measures 1.5 x 1.2 cm, previously 1.2 x 1.1 cm. No acute intracranial bleed. There is no midline shift to suggest mass effect. Impression: Interval increase in the size of low attenuating areas in the right frontal lobe and right basal ganglia suggests evolving infarct. No evidence of hemorrhagic transformation. PQRS Compliance Statement: One or more of the following individualized dose reduction techniques were utilized for this examination: 1. Automated exposure control 2. Adjustment of the mA and/or kV according to patient size 3. Use of iterative reconstruction technique
[2017-03-26 11:00] VITALS: BP 153/68
--- NOTE | 2017-03-26 12:06 | PDOC ---
PROGRESS NOTES Chief Complaint Chief Complaint CVA with left sided weakness PMH: htn Type 2 DM - uncontrolled Obesity Not compliant with meds History of Present Illness History of Present Illness Pt is laying in bed. Pt is unable to move left arm, is able to move right arm and both feet. Pt speaks chukese, granddaughter at bedside and helping translate. Spoke with RN would like to add saline nasal spray, which is ok to give Pt does not have insurance, SW involved and having HCFS visit with patient to discuss options. Spoke with Gemma in speech pathology, pt is ready for video swallow test. Vitals Vitals Vital Signs Date Time Temp Pulse Resp B/P (MAP) Pulse Ox O2 Delivery O2 Flow Rate FiO2 03/26/17 11:00 98.9 64 18 153/68 (96) 94 Room Air 98.9 Physical Exam General: Cooperative, Other (arousable and following commands) Heart: Regular rate Lungs: Clear Abdomen: Soft, No tenderness Extremities: No clubbing, No cyanosis, No edema, Other (left arm paralyzed) Skin: No rashes, No breakdown Labs LABS Laboratory Tests Test 03/25/17 17:36 03/25/17 20:33 03/26/17 05:00 03/26/17 07:06 Glucose (Fingerstick) 134 mg/dL (70-99) 140 mg/dL (70-99) 214 mg/dL (70-99) White Blood Count 10.8 x10^3/uL (4.0-11.0) Red Blood Count 4.70 x10^6/uL (3.50-5.40) Hemoglobin 14.6 g/dL (12.0-15.5) Hematocrit 42.7 % (36.0-47.0) Mean Corpuscular Volume 91 fL (79-100) Mean Corpuscular Hemoglobin 31 pg (25-35) Mean Corpuscular Hemoglobin Concent 34 g/dL (31-37) Red Cell Distribution Width 12.8 % (11.5-14.5) Platelet Count 211 x10^3/uL (140-400) Neutrophils (%) (Auto) 77 % (31-73) Lymphocytes (%) (Auto) 16 % (24-48) Monocytes (%) (Auto) 5 % (0-9) Eosinophils (%) (Auto) 1 % (0-3) Basophils (%) (Auto) 1 % (0-3) Neutrophils # (Auto) 8.4 x10^3uL (1.8-7.7) Lymphocytes # (Auto) 1.7 x10^3/uL (1.0-4.8) Monocytes # (Auto) 0.6 x10^3/uL (0.0-1.1) Eosinophils # (Auto) 0.1 x10^3/uL (0.0-0.7) Basophils # (Auto) 0.1 x10^3/uL (0.0-0.2) Sodium Level 138 mmol/L (136-145) Potassium Level 3.4 mmol/L (3.5-5.1) Chloride Level 100 mmol/L (98-107) Carbon Dioxide Level 25 mmol/L (21-32) Anion Gap 13 (6-14) Blood Urea Nitrogen 14 mg/dL (7-20) Creatinine 1.0 mg/dL (0.6-1.0) Estimated GFR (Cockcroft-Gault) 55.1 Glucose Level 210 mg/dL (70-99) Calcium Level 9.0 mg/dL (8.5-10.1) Test 03/26/17 11:44 Glucose (Fingerstick) 174 mg/dL (70-99) Review of Systems Review of Systems left arm paralysis Left sided weakness Assessment and Plan Assessmemt and Plan Problems Medical Problems: (1) CVA (cerebral vascular accident) Status: Acute 1. Ischemic stroke 2. Dysphagia - NPO, failed swallow test. GI consulted for possible PEG tube placement 3. Right carotid artery occlusion - no indicatin for surgery per Dr. Cordero 4. PT/OT 5. food services director involving HCFS for SNU/SNF evaluation 6. Continue abx for UTI 7. DVT prophylaxis - lovenox 8. Recheck labs - CBC, BMP 9. Ordered video swallow test 10. Appreciate subspecialty input Problems: Comment Review of Relevant I have reviewed the following items tamie (where applicable) has been applied. Labs Laboratory Tests Test 03/24/17 12:25 03/24/17 16:17 03/24/17 18:50 03/24/17 20:35 Urine Collection Type U cath Urine Color Yellow Urine Clarity Clear Urine pH 6.5 Urine Specific [place] 1.020 Urine Protein Negative mg/dL (NEG-TRACE) Urine Glucose (UA) >=1000 mg/dL (NEG) Urine Ketones (Stick) Negative mg/dL (NEG) Urine Blood Negative (NEG) Urine Nitrite Positive (NEG) Urine Bilirubin Negative (NEG) Urine Urobilinogen Dipstick 0.2 mg/dL (0.2 mg/dL) Urine Leukocyte Esterase Moderate (NEG) Urine RBC Rare /HPF (0-2) Urine WBC 11-20 /HPF (0-4) Urine Squamous Epithelial Cells Occ /LPF Urine Bacteria Many /HPF (0-FEW) Urine Opiates Screen Neg (NEG) Urine Methadone Screen Neg (NEG) Urine Barbiturates Neg (NEG) Urine Phencyclidine Screen Neg (NEG) Urine Amphetamine/Methamphetamine Neg (NEG) Urine Benzodiazepines Screen Neg (NEG) Urine Cocaine Screen Neg (NEG) Urine Cannabinoids Screen Neg (NEG) Urine Ethyl Alcohol Neg (NEG) Glucose (Fingerstick) 147 mg/dL (70-99) 154 mg/dL (70-99) Troponin I Quantitative 0.017 ng/mL (0.000-0.055) Test 03/25/17 01:25 03/25/17 03:45 03/25/17 07:17 03/25/17 11:57 Troponin I Quantitative < 0.017 ng/mL (0.000-0.055) White Blood Count 9.7 x10^3/uL (4.0-11.0) Red Blood Count 4.60 x10^6/uL (3.50-5.40) Hemoglobin 13.9 g/dL (12.0-15.5) Hematocrit 42.9 % (36.0-47.0) Mean Corpuscular Volume 93 fL (79-100) Mean Corpuscular Hemoglobin 30 pg (25-35) Mean Corpuscular Hemoglobin Concent 32 g/dL (31-37) Red Cell Distribution Width 12.5 % (11.5-14.5) Platelet Count 202 x10^3/uL (140-400) Neutrophils (%) (Auto) 61 % (31-73) Lymphocytes (%) (Auto) 29 % (24-48) Monocytes (%) (Auto) 7 % (0-9) Eosinophils (%) (Auto) 2 % (0-3) Basophils (%) (Auto) 1 % (0-3) Neutrophils # (Auto) 5.9 x10^3uL (1.8-7.7) Lymphocytes # (Auto) 2.8 x10^3/uL (1.0-4.8) Monocytes # (Auto) 0.7 x10^3/uL (0.0-1.1) Eosinophils # (Auto) 0.2 x10^3/uL (0.0-0.7) Basophils # (Auto) 0.1 x10^3/uL (0.0-0.2) Sodium Level 140 mmol/L (136-145) Potassium Level 3.5 mmol/L (3.5-5.1) Chloride Level 104 mmol/L (98-107) Carbon Dioxide Level 26 mmol/L (21-32) Anion Gap 10 (6-14) Blood Urea Nitrogen 14 mg/dL (7-20) Creatinine 1.1 mg/dL (0.6-1.0) Estimated GFR (Cockcroft-Gault) 49.4 Glucose Level 180 mg/dL (70-99) Hemoglobin A1c 7.9 % (4.8-5.6) Calcium Level 8.5 mg/dL (8.5-10.1) Triglycerides Level 185 mg/dL (0-150) Cholesterol Level 232 mg/dL (0-200) LDL Cholesterol, Calculated 160 mg/dL (0-100) VLDL Cholesterol, Calculated 37 mg/dL (0-40) Non-HDL Cholesterol Calculated 197 mg/dL (0-129) HDL Cholesterol 35 mg/dL (40-60) Cholesterol/HDL Ratio 6.6 Glucose (Fingerstick) 184 mg/dL (70-99) 196 mg/dL (70-99) Test 03/25/17 17:36 03/25/17 20:33 03/26/17 05:00 03/26/17 07:06 Glucose (Fingerstick) 134 mg/dL (70-99) 140 mg/dL (70-99) 214 mg/dL (70-99) White Blood Count 10.8 x10^3/uL (4.0-11.0) Red Blood Count 4.70 x10^6/uL (3.50-5.40) Hemoglobin 14.6 g/dL (12.0-15.5) Hematocrit 42.7 % (36.0-47.0) Mean Corpuscular Volume 91 fL (79-100) Mean Corpuscular Hemoglobin 31 pg (25-35) Mean Corpuscular Hemoglobin Concent 34 g/dL (31-37) Red Cell Distribution Width 12.8 % (11.5-14.5) Platelet Count 211 x10^3/uL (140-400) Neutrophils (%) (Auto) 77 % (31-73) Lymphocytes (%) (Auto) 16 % (24-48) Monocytes (%) (Auto) 5 % (0-9) Eosinophils (%) (Auto) 1 % (0-3) Basophils (%) (Auto) 1 % (0-3) Neutrophils # (Auto) 8.4 x10^3uL (1.8-7.7) Lymphocytes # (Auto) 1.7 x10^3/uL (1.0-4.8) Monocytes # (Auto) 0.6 x10^3/uL (0.0-1.1) Eosinophils # (Auto) 0.1 x10^3/uL (0.0-0.7) Basophils # (Auto) 0.1 x10^3/uL (0.0-0.2) Sodium Level 138 mmol/L (136-145) Potassium Level 3.4 mmol/L (3.5-5.1) Chloride Level 100 mmol/L (98-107) Carbon Dioxide Level 25 mmol/L (21-32) Anion Gap 13 (6-14) Blood Urea Nitrogen 14 mg/dL (7-20) Creatinine 1.0 mg/dL (0.6-1.0) Estimated GFR (Cockcroft-Gault) 55.1 Glucose Level 210 mg/dL (70-99) Calcium Level 9.0 mg/dL (8.5-10.1) Test 03/26/17 11:44 Glucose (Fingerstick) 174 mg/dL (70-99) Laboratory Tests Test 03/25/17 17:36 03/25/17 20:33 03/26/17 05:00 03/26/17 07:06 Glucose (Fingerstick) 134 mg/dL (70-99) 140 mg/dL (70-99) 214 mg/dL (70-99) White Blood Count 10.8 x10^3/uL (4.0-11.0) Red Blood Count 4.70 x10^6/uL (3.50-5.40) Hemoglobin 14.6 g/dL (12.0-15.5) Hematocrit 42.7 % (36.0-47.0) Mean Corpuscular Volume 91 fL (79-100) Mean Corpuscular Hemoglobin 31 pg (25-35) Mean Corpuscular Hemoglobin Concent 34 g/dL (31-37) Red Cell Distribution Width 12.8 % (11.5-14.5) Platelet Count 211 x10^3/uL (140-400) Neutrophils (%) (Auto) 77 % (31-73) Lymphocytes (%) (Auto) 16 % (24-48) Monocytes (%) (Auto) 5 % (0-9) Eosinophils (%) (Auto) 1 % (0-3) Basophils (%) (Auto) 1 % (0-3) Neutrophils # (Auto) 8.4 x10^3uL (1.8-7.7) Lymphocytes # (Auto) 1.7 x10^3/uL (1.0-4.8) Monocytes # (Auto) 0.6 x10^3/uL (0.0-1.1) Eosinophils # (Auto) 0.1 x10^3/uL (0.0-0.7) Basophils # (Auto) 0.1 x10^3/uL (0.0-0.2) Sodium Level 138 mmol/L (136-145) Potassium Level 3.4 mmol/L (3.5-5.1) Chloride Level 100 mmol/L (98-107) Carbon Dioxide Level 25 mmol/L (21-32) Anion Gap 13 (6-14) Blood Urea Nitrogen 14 mg/dL (7-20) Creatinine 1.0 mg/dL (0.6-1.0) Estimated GFR (Cockcroft-Gault) 55.1 Glucose Level 210 mg/dL (70-99) Calcium Level 9.0 mg/dL (8.5-10.1) Test 03/26/17 11:44 Glucose (Fingerstick) 174 mg/dL (70-99) Medications Current Medications Insulin Aspart (NovoLOG) 0-5 UNITS TIDWMEALS SQ Last administered on 03/26/17t 09:41; Start 03/24/17 at 17:00 Dextrose (Dextrose 50%-Water Syringe) 12.5 gm PRN Q15MIN PRN IV SEE COMMENTS; Start 03/24/17 at 12:30 Ceftriaxone Sodium 50 ml @ 100 mls/hr 1X ONCE IV Last administered on 13:33; Start 03/24/17 at 13:30; Stop 03/24/17 at 13:59; Status DC Ceftriaxone Sodium 1 gm/ Sodium Chloride 50 ml @ 100 mls/hr Q24H IV Last administered on 03/25/17 15:43; Start 03/25/17 at 14:00 Ondansetron HCl (Zofran) 4 mg PRN Q8HRS PRN IV NAUSEA/VOMITING; Start 03/24/17 at 13:30; Stop 03/25/17 at 13:29; Status DC Sodium Chloride 1,000 ml @ 125 mls/hr Q8H IV Last administered on 03/24/17 13 :37; Start 03/24/17 at 13:45; Stop 03/25/17 at 08:53; Status DC Aspirin (Aspirin) 300 mg 1X ONCE [place] Last administered on 03/24/17 13:45; Start 03/24/17 at 13:45; Stop 03/24/17 at 13:46; Status DC Sodium Chloride (Normal Saline Flush) 3 ml QSHIFT PRN IV AFTER MEDS AND BLOOD DRAWS; Start 03/24/17 at 13:45 Sodium Chloride 1,000 ml @ 100 mls/hr Q10H IV Last administered on 03/25/17 01:22; Start 03/24/17 at 14:00; Stop 03/25/17 at 08:53; Status DC Aspirin (Ecotrin) 325 mg DAILYWBKFT PO ; Start 03/25/17 at 08:00 Atorvastatin Calcium (Lipitor) 20 mg QHS PO ; Start 03/24/17 at 21:00 Labetalol HCl (Normodyne) 10 mg PRN Q10MIN PRN IV HYPERTENSION, SEE COMMENTS Last administered on 03/25/17 20:08; Start 03/24/17 at 13:45 Acetaminophen (Tylenol) 650 mg PRN Q6HRS PRN PO FEVER; Start 03/24/17 at 13:45 Acetaminophen (Acetaminophen Supp) 650 mg PRN Q6HRS PRN [place] FEVER Last administered on 03/26/17 09:38; Start 03/24/17 at 13:45 Enoxaparin Sodium (Lovenox 40mg Syringe) 40 mg Q24H SQ Last administered on 15:42; Start 03/24/17 at 15:00 Iohexol (Omnipaque 350 Mg/ml) 60 ml 1X ONCE IV Last administered on 03/24/17 16:25; Start 03/24/17 at 16:15; Stop 03/24/17 at 16:20; Status DC Info (Do NOT chart on this entry -- for MONITORING) 1 each PRN DAILY PRN MC SEE COMMENTS; Start 03/24/17 at 16:30; Stop 03/26/17 at 16:29 Ondansetron HCl (Zofran) 4 mg PRN Q6HRS PRN IV NAUSEA/VOMITING; Start 03/24/17 at 16:30 Amino Acids/ Glycerin/ Electrolytes 1,000 ml @ 80 mls/hr [id number] IV Last administered on 03/26/17 00:12; Start 03/25/17 at 09:30 Active Scripts Active Reported Atorvastatin Calcium 40 Mg Tablet 1 Tab PO DAILY Losartan Potassium 100 Mg Tablet 100 Mg PO DAILY Aspir 81 (Aspirin) 81 Mg Tablet. 1 Tab PO DAILY Vitals/I & O Vital Sign - Last 24 Hours 03/25/17 03/25/17 03/25/17 03/25/17 14:55 19:00 20:00 20:08 Temp 98.9 98.9 98.9 98.9 Pulse 60 60 60 Resp 18 22 B/P (MAP) 203/77 (119) 204/77 (119) 204/77 Pulse Ox 95 97 O2 Delivery Room Air Room Air Room Air 03/25/17 03/25/17 03/26/17 03/26/17 21:08 22:42 03:00 07:00 Temp 99.4 98.4 98.4 99.4 98.4 98.4 Pulse 60 58 67 59 Resp 20 20 18 B/P (MAP) 177/66 (103) 183/69 (107) 179/73 (108) 185/59 (101) Pulse Ox 96 95 97 O2 Delivery Room Air Room Air Room Air 03/26/17 03/26/17 08:00 11:00 Temp 98.9 98.9 Pulse 64 Resp 18 B/P (MAP) 153/68 (96) Pulse Ox 94 O2 Delivery Room Air Room Air Intake and Output 03/25/17 03/25/17 03/26/17 15:00 23:00 07:00 Intake Total 0 ml Balance 0 ml CHAGO VERGARA III DO Mar 26, 2017 12:06
--- NOTE | 2017-03-26 12:21 | PDOC ---
PROGRESS NOTES Assessment Problems Medical Problems: (1) CVA (cerebral vascular accident) Status: Acute Strokes related to right carotid artery occlusion, not a total carotid- distribution infarct on today's head CT Also has left vertebral artery occlusion Left carotid artery is patent Hyperlipidemia Plan I again explained to the patient's daughter the grave situation. The patient is stable so I do not think that she needs, for instance, decompressive craniectomy. Heparin is not helpful in this situation Vascular surgery help appreciated Rehabilitation modalities ProcalAmine I anticipate she will need a PEG tube but reasonable to wait over the weekend to see if she does regain swallowing Discussed fully with patient and family Permissive hypertension, current blood pressure parameters. Statin when PEG placed or able to swallow. Subjective Complaints of abdominal pain Objective Vital Signs Date Time Temp Pulse Resp B/P (MAP) Pulse Ox O2 Delivery O2 Flow Rate FiO2 03/26/17 11:00 98.9 64 18 153/68 (96) 94 Room Air 98.9 Intake and Output 03/26/17 06:59 Intake Total 0 ml Balance 0 ml Intake Oral 0 ml # Voids 6 PHYSICAL EXAM Eyes closed. Oriented to person. PERRL. EOMI. CN: Left field cut, left central facial weakness Muscle tone: normal. Muscle strength: 3/5 on left DTR: 2+ Plantar reflex: Flexor on right, extensor on left Gait: not examined in bed. Sensory exam: Left hemisensory loss No cerebellar signs elicited, out of proportion to the weakness. Review of Relevant I have reviewed the following items tamie (where applicable) has been applied. Labs Laboratory Tests Test 03/24/17 12:25 03/24/17 16:17 03/24/17 18:50 03/24/17 20:35 Urine Collection Type U cath Urine Color Yellow Urine Clarity Clear Urine pH 6.5 Urine Specific Levels 1.020 Urine Protein Negative mg/dL (NEG-TRACE) Urine Glucose (UA) >=1000 mg/dL (NEG) Urine Ketones (Stick) Negative mg/dL (NEG) Urine Blood Negative (NEG) Urine Nitrite Positive (NEG) Urine Bilirubin Negative (NEG) Urine Urobilinogen Dipstick 0.2 mg/dL (0.2 mg/dL) Urine Leukocyte Esterase Moderate (NEG) Urine RBC Rare /HPF (0-2) Urine WBC 11-20 /HPF (0-4) Urine Squamous Epithelial Cells Occ /LPF Urine Bacteria Many /HPF (0-FEW) Urine Opiates Screen Neg (NEG) Urine Methadone Screen Neg (NEG) Urine Barbiturates Neg (NEG) Urine Phencyclidine Screen Neg (NEG) Urine Amphetamine/Methamphetamine Neg (NEG) Urine Benzodiazepines Screen Neg (NEG) Urine Cocaine Screen Neg (NEG) Urine Cannabinoids Screen Neg (NEG) Urine Ethyl Alcohol Neg (NEG) Glucose (Fingerstick) 147 mg/dL (70-99) 154 mg/dL (70-99) Troponin I Quantitative 0.017 ng/mL (0.000-0.055) Test 03/25/17 01:25 03/25/17 03:45 03/25/17 07:17 03/25/17 11:57 Troponin I Quantitative < 0.017 ng/mL (0.000-0.055) White Blood Count 9.7 x10^3/uL (4.0-11.0) Red Blood Count 4.60 x10^6/uL (3.50-5.40) Hemoglobin 13.9 g/dL (12.0-15.5) Hematocrit 42.9 % (36.0-47.0) Mean Corpuscular Volume 93 fL (79-100) Mean Corpuscular Hemoglobin 30 pg (25-35) Mean Corpuscular Hemoglobin Concent 32 g/dL (31-37) Red Cell Distribution Width 12.5 % (11.5-14.5) Platelet Count 202 x10^3/uL (140-400) Neutrophils (%) (Auto) 61 % (31-73) Lymphocytes (%) (Auto) 29 % (24-48) Monocytes (%) (Auto) 7 % (0-9) Eosinophils (%) (Auto) 2 % (0-3) Basophils (%) (Auto) 1 % (0-3) Neutrophils # (Auto) 5.9 x10^3uL (1.8-7.7) Lymphocytes # (Auto) 2.8 x10^3/uL (1.0-4.8) Monocytes # (Auto) 0.7 x10^3/uL (0.0-1.1) Eosinophils # (Auto) 0.2 x10^3/uL (0.0-0.7) Basophils # (Auto) 0.1 x10^3/uL (0.0-0.2) Sodium Level 140 mmol/L (136-145) Potassium Level 3.5 mmol/L (3.5-5.1) Chloride Level 104 mmol/L (98-107) Carbon Dioxide Level 26 mmol/L (21-32) Anion Gap 10 (6-14) Blood Urea Nitrogen 14 mg/dL (7-20) Creatinine 1.1 mg/dL (0.6-1.0) Estimated GFR (Cockcroft-Gault) 49.4 Glucose Level 180 mg/dL (70-99) Hemoglobin A1c 7.9 % (4.8-5.6) Calcium Level 8.5 mg/dL (8.5-10.1) Triglycerides Level 185 mg/dL (0-150) Cholesterol Level 232 mg/dL (0-200) LDL Cholesterol, Calculated 160 mg/dL (0-100) VLDL Cholesterol, Calculated 37 mg/dL (0-40) Non-HDL Cholesterol Calculated 197 mg/dL (0-129) HDL Cholesterol 35 mg/dL (40-60) Cholesterol/HDL Ratio 6.6 Glucose (Fingerstick) 184 mg/dL (70-99) 196 mg/dL (70-99) Test 03/25/17 17:36 03/25/17 20:33 03/26/17 05:00 03/26/17 07:06 Glucose (Fingerstick) 134 mg/dL (70-99) 140 mg/dL (70-99) 214 mg/dL (70-99) White Blood Count 10.8 x10^3/uL (4.0-11.0) Red Blood Count 4.70 x10^6/uL (3.50-5.40) Hemoglobin 14.6 g/dL (12.0-15.5) Hematocrit 42.7 % (36.0-47.0) Mean Corpuscular Volume 91 fL (79-100) Mean Corpuscular Hemoglobin 31 pg (25-35) Mean Corpuscular Hemoglobin Concent 34 g/dL (31-37) Red Cell Distribution Width 12.8 % (11.5-14.5) Platelet Count 211 x10^3/uL (140-400) Neutrophils (%) (Auto) 77 % (31-73) Lymphocytes (%) (Auto) 16 % (24-48) Monocytes (%) (Auto) 5 % (0-9) Eosinophils (%) (Auto) 1 % (0-3) Basophils (%) (Auto) 1 % (0-3) Neutrophils # (Auto) 8.4 x10^3uL (1.8-7.7) Lymphocytes # (Auto) 1.7 x10^3/uL (1.0-4.8) Monocytes # (Auto) 0.6 x10^3/uL (0.0-1.1) Eosinophils # (Auto) 0.1 x10^3/uL (0.0-0.7) Basophils # (Auto) 0.1 x10^3/uL (0.0-0.2) Sodium Level 138 mmol/L (136-145) Potassium Level 3.4 mmol/L (3.5-5.1) Chloride Level 100 mmol/L (98-107) Carbon Dioxide Level 25 mmol/L (21-32) Anion Gap 13 (6-14) Blood Urea Nitrogen 14 mg/dL (7-20) Creatinine 1.0 mg/dL (0.6-1.0) Estimated GFR (Cockcroft-Gault) 55.1 Glucose Level 210 mg/dL (70-99) Calcium Level 9.0 mg/dL (8.5-10.1) Test 03/26/17 11:44 Glucose (Fingerstick) 174 mg/dL (70-99) Laboratory Tests Test 03/25/17 17:36 03/25/17 20:33 03/26/17 05:00 03/26/17 07:06 Glucose (Fingerstick) 134 mg/dL (70-99) 140 mg/dL (70-99) 214 mg/dL (70-99) White Blood Count 10.8 x10^3/uL (4.0-11.0) Red Blood Count 4.70 x10^6/uL (3.50-5.40) Hemoglobin 14.6 g/dL (12.0-15.5) Hematocrit 42.7 % (36.0-47.0) Mean Corpuscular Volume 91 fL (79-100) Mean Corpuscular Hemoglobin 31 pg (25-35) Mean Corpuscular Hemoglobin Concent 34 g/dL (31-37) Red Cell Distribution Width 12.8 % (11.5-14.5) Platelet Count 211 x10^3/uL (140-400) Neutrophils (%) (Auto) 77 % (31-73) Lymphocytes (%) (Auto) 16 % (24-48) Monocytes (%) (Auto) 5 % (0-9) Eosinophils (%) (Auto) 1 % (0-3) Basophils (%) (Auto) 1 % (0-3) Neutrophils # (Auto) 8.4 x10^3uL (1.8-7.7) Lymphocytes # (Auto) 1.7 x10^3/uL (1.0-4.8) Monocytes # (Auto) 0.6 x10^3/uL (0.0-1.1) Eosinophils # (Auto) 0.1 x10^3/uL (0.0-0.7) Basophils # (Auto) 0.1 x10^3/uL (0.0-0.2) Sodium Level 138 mmol/L (136-145) Potassium Level 3.4 mmol/L (3.5-5.1) Chloride Level 100 mmol/L (98-107) Carbon Dioxide Level 25 mmol/L (21-32) Anion Gap 13 (6-14) Blood Urea Nitrogen 14 mg/dL (7-20) Creatinine 1.0 mg/dL (0.6-1.0) Estimated GFR (Cockcroft-Gault) 55.1 Glucose Level 210 mg/dL (70-99) Calcium Level 9.0 mg/dL (8.5-10.1) Test 03/26/17 11:44 Glucose (Fingerstick) 174 mg/dL (70-99) Medications Current Medications Insulin Aspart (NovoLOG) 0-5 UNITS TIDWMEALS SQ Last administered on 03/26/17 09:41; Start 03/24/17 at 17:00 Dextrose (Dextrose 50%-Water Syringe) 12.5 gm PRN Q15MIN PRN IV SEE COMMENTS; Start 03/24/17 at 12:30 Ceftriaxone Sodium 50 ml @ 100 mls/hr 1X ONCE IV Last administered on 13:33; Start 03/24/17 at 13:30; Stop 03/24/17 at 13:59; Status DC Ceftriaxone Sodium 1 gm/ Sodium Chloride 50 ml @ 100 mls/hr Q24H IV Last administered on 03/25/17 15:43; Start 03/25/17 at 14:00 Ondansetron HCl (Zofran) 4 mg PRN Q8HRS PRN IV NAUSEA/VOMITING; Start 03/24/17 at 13:30; Stop 03/25/17 at 13:29; Status DC Sodium Chloride 1,000 ml @ 125 mls/hr Q8H IV Last administered on 03/24/17 13 :37; Start 03/24/17 at 13:45; Stop 03/25/17 at 08:53; Status DC Aspirin (Aspirin) 300 mg 1X ONCE [place] Last administered on 03/24/17 13:45; Start 03/24/17 at 13:45; Stop 03/24/17 at 13:46; Status DC Sodium Chloride (Normal Saline Flush) 3 ml QSHIFT PRN IV AFTER MEDS AND BLOOD DRAWS; Start 03/24/17 at 13:45 Sodium Chloride 1,000 ml @ 100 mls/hr Q10H IV Last administered on 03/25/17 01:22; Start 03/24/17 at 14:00; Stop 03/25/17 at 08:53; Status DC Aspirin (Ecotrin) 325 mg DAILYWBKFT PO ; Start 03/25/17 at 08:00 Atorvastatin Calcium (Lipitor) 20 mg QHS PO ; Start 03/24/17 at 21:00 Labetalol HCl (Normodyne) 10 mg PRN Q10MIN PRN IV HYPERTENSION, SEE COMMENTS Last administered on 03/25/17 20:08; Start 03/24/17 at 13:45 Acetaminophen (Tylenol) 650 mg PRN Q6HRS PRN PO FEVER; Start 03/24/17 at 13:45 Acetaminophen (Acetaminophen Supp) 650 mg PRN Q6HRS PRN [place] FEVER Last administered on 03/26/17 09:38; Start 03/24/17 at 13:45 Enoxaparin Sodium (Lovenox 40mg Syringe) 40 mg Q24H SQ Last administered on 15:42; Start 03/24/17 at 15:00 Iohexol (Omnipaque 350 Mg/ml) 60 ml 1X ONCE IV Last administered on 03/24/17 16:25; Start 03/24/17 at 16:15; Stop 03/24/17 at 16:20; Status DC Info (Do NOT chart on this entry -- for MONITORING) 1 each PRN DAILY PRN MC SEE COMMENTS; Start 03/24/17 at 16:30; Stop 03/26/17 at 16:29 Ondansetron HCl (Zofran) 4 mg PRN Q6HRS PRN IV NAUSEA/VOMITING; Start 03/24/17 at 16:30 Amino Acids/ Glycerin/ Electrolytes 1,000 ml @ 80 mls/hr [id number] IV Last administered on 03/26/17t 00:12; Start 03/25/17 at 09:30 Active Scripts Active Reported Atorvastatin Calcium 40 Mg Tablet 1 Tab PO DAILY Losartan Potassium 100 Mg Tablet 100 Mg PO DAILY Aspir 81 (Aspirin) 81 Mg Tablet. 1 Tab PO DAILY Vitals/I & O Vital Sign - Last 24 Hours 03/25/17 03/25/17 03/25/17 03/25/17 14:55 19:00 20:00 20:08 Temp 98.9 98.9 98.9 98.9 Pulse 60 60 60 Resp 18 22 B/P (MAP) 203/77 (119) 204/77 (119) 204/77 Pulse Ox 95 97 O2 Delivery Room Air Room Air Room Air 03/25/17 03/25/17 03/26/17 03/26/17 21:08 22:42 03:00 07:00 Temp 99.4 98.4 98.4 99.4 98.4 98.4 Pulse 60 58 67 59 Resp 20 20 18 B/P (MAP) 177/66 (103) 183/69 (107) 179/73 (108) 185/59 (101) Pulse Ox 96 95 97 O2 Delivery Room Air Room Air Room Air 03/26/17 03/26/17 08:00 11:00 Temp 98.9 98.9 Pulse 64 Resp 18 B/P (MAP) 153/68 (96) Pulse Ox 94 O2 Delivery Room Air Room Air Intake and Output 03/25/17 03/25/17 03/26/17 14:59 22:59 06:59 Intake Total 0 ml Balance 0 ml Images Follow-up head CT today: Findings: Ill-defined area of low-attenuation is seen in the right frontal lobe in the periventricular region and a separate area is seen in the right basal ganglia. The area in the right frontal lobe periventricular region approximately measures 4.0 x 1.8 cm, previously 2.6 x 1.0 cm. The low attenuating lesion in the right basal ganglia measures 1.5 x 1.2 cm, previously 1.2 x 1.1 cm. No acute intracranial bleed. There is no midline shift to suggest mass effect. Impression: Interval increase in the size of low attenuating areas in the right frontal lobe and right basal ganglia suggests evolving infarct. No evidence of hemorrhagic transformation. ETIENNE TRAORE MD Mar 26, 2017 12:21
[2017-03-26] MEDS ORDERED: BARIUM SULFATE 40% (APPLE) 148 GM PWD. PO ONE (13:30)
--- NOTE | 2017-03-26 13:43 | PDOC ---
Subjective: Subjective: Family present including daughter who is DPOA. Objective: Objective: Per RN - to have videoswallow today. Vital Signs: Vital Signs Date Time Temp Pulse Resp B/P (MAP) Pulse Ox O2 Delivery O2 Flow Rate FiO2 03/26/17 11:00 98.9 64 18 153/68 (96) 94 Room Air 98.9 Labs: Laboratory Tests Test 03/25/17 17:36 03/25/17 20:33 03/26/17 05:00 03/26/17 07:06 Glucose (Fingerstick) 134 mg/dL 140 mg/dL 214 mg/dL White Blood Count 10.8 x10^3/uL Red Blood Count 4.70 x10^6/uL Hemoglobin 14.6 g/dL Hematocrit 42.7 % Mean Corpuscular Volume 91 fL Mean Corpuscular Hemoglobin 31 pg Mean Corpuscular Hemoglobin Concent 34 g/dL Red Cell Distribution Width 12.8 % Platelet Count 211 x10^3/uL Neutrophils (%) (Auto) 77 % Lymphocytes (%) (Auto) 16 % Monocytes (%) (Auto) 5 % Eosinophils (%) (Auto) 1 % Basophils (%) (Auto) 1 % Neutrophils # (Auto) 8.4 x10^3uL Lymphocytes # (Auto) 1.7 x10^3/uL Monocytes # (Auto) 0.6 x10^3/uL Eosinophils # (Auto) 0.1 x10^3/uL Basophils # (Auto) 0.1 x10^3/uL Sodium Level 138 mmol/L Potassium Level 3.4 mmol/L Chloride Level 100 mmol/L Carbon Dioxide Level 25 mmol/L Anion Gap 13 Blood Urea Nitrogen 14 mg/dL Creatinine 1.0 mg/dL Estimated GFR (Cockcroft-Gault) 55.1 Glucose Level 210 mg/dL Calcium Level 9.0 mg/dL Test 03/26/17 11:44 Glucose (Fingerstick) 174 mg/dL PE: GEN: NAD LUNGS: CTAB HEART: RRR ABD: NABS, S/ND/NT NEURO/PSYCH: awake A/P: CVA, dysphagia -- Discussed PEG procedure/risks w/ family. Questions were answered to their satisfaction. Await videoswallow and family's decision re: PEG if needed. JOSE MANDEL Mar 26, 2017 13:43
[2017-03-26 15:00] VITALS: BP 166/65
--- NOTE | 2017-03-26 15:56 | RAD ---
Video swallow study Indication: Stroke Technique: Fluoroscopy-guided video swallow study with 2.6 minutes of fluoroscopy time Comparison: None Findings: Spillage/ loss from anterior left. Significant oral delay. Patient demonstrates bolus holding with thin and puree food. Penetration of thin liquids with teaspoon when assisted. No penetration with cup and straw when patient holds it suggesting patient control. Impression: As above. Please see detailed notes by speech pathology in patients chart for full information.
[2017-03-26] MEDS: ENOXAPARIN 40 MG/0.4 ML SYRINGE. SQ SCH (17:33)
[2017-03-26 19:39] VITALS: BP 159/62
[2017-03-26] MEDS: ATORVASTATIN CALCIUM 20 MG TABLET PO SCH (20:32)
[2017-03-26] MEDS: diphenhydrAMINE 50 MG/ML VIAL IVP PRN (23:11)
[2017-03-26 23:58] VITALS: BP 110/57
[2017-03-27 03:26] VITALS: BP 158/54
[2017-03-27 06:15] LABS: BASO # 0.1 x10^3/uL (0.0-0.2); BASO % 1 % (0-3); EOS % 4 % (0-3); HEMATOCRIT 42.7 % (36.0-47.0); HEMOGLOBIN 14.6 g/dL (12.0-15.5); LYMPH % 23 % (24-48); MEAN CORPUSCULAR HEMOGLOBIN 31 pg (25-35); MEAN CORPUSCULAR HGB CONC 34 g/dL (31-37); MEAN CORPUSCULAR VOLUME 90 fL (79-100); MONO % 9 % (0-9); NEUT % 64 % (31-73); PLATELET COUNT 210 x10^3/uL (140-400); RED BLOOD COUNT 4.73 x10^6/uL (3.50-5.40); RED CELL DISTRIBUTION WIDTH 12.6 % (11.5-14.5); WHITE BLOOD COUNT 8.8 x10^3/uL (4.0-11.0)
[2017-03-27 06:33] LABS: CALCIUM 8.9 mg/dL (8.5-10.1); GFR 55.1; POTASSIUM 3.4 mmol/L (3.5-5.1)
[2017-03-27 07:00] VITALS: BP 145/68
[2017-03-27] MEDS: diphenhydrAMINE 50 MG/ML VIAL IVP PRN (07:44)
[2017-03-27] MEDS: ASPIRIN ENTERIC COATED 325 MG TABLET.DR. PO SCH (07:46)
[2017-03-27] MEDS: INSULIN ASPART 300 UNITS/3 ML INSULN.PEN SQ SCH ×3 (07:46→17:00)
[2017-03-27] MEDS: AMINO AC 3%/ELECTROLYTE/GLYCER 1,000 ML IV SCH ×2 (09:56→21:35)
[2017-03-27 11:00] VITALS: BP 139/60
--- NOTE | 2017-03-27 11:03 | PDOC ---
PROGRESS NOTES Assessment Problems Medical Problems: (1) CVA (cerebral vascular accident) Status: Acute Strokes related to right carotid artery occlusion, not a total carotid- distribution infarct on today's head CT Also has left vertebral artery occlusion Left carotid artery is patent Hyperlipidemia Plan Heparin is not helpful in this situation Rehabilitation modalities ProcalAmine I anticipate she will need a PEG tube but reasonable to wait over the weekend to see if she does regain swallowing Permissive hypertension, current blood pressure parameters. Statin when PEG placed or able to swallow. Discussed fully with patient and family Defer management of abdominal pain and itching to primary service. Subjective She complains of right-sided abdominal pain and itching in the right upper chest. Objective Vital Signs Date Time Temp Pulse Resp B/P (MAP) Pulse Ox O2 Delivery O2 Flow Rate FiO2 03/27/17 08:00 Room Air 03/27/17 07:00 98.1 62 20 145/68 (93) 95 98.1 Intake and Output 03/27/17 07:00 Intake Total 0 ml Balance 0 ml Intake Oral 0 ml # Voids 9 PHYSICAL EXAM Eyes closed. Oriented to person. PERRL. EOMI. CN: Left field cut, left central facial weakness Muscle tone: normal. Muscle strength: 3/5 on left DTR: 2+ Plantar reflex: Flexor on right, extensor on left Gait: not examined in bed. Sensory exam: Left hemisensory loss No cerebellar signs elicited, out of proportion to the weakness. Review of Relevant I have reviewed the following items tamie (where applicable) has been applied. Labs Laboratory Tests Test 03/25/17 11:57 03/25/17 17:36 03/25/17 20:33 03/26/17 05:00 Glucose (Fingerstick) 196 mg/dL (70-99) 134 mg/dL (70-99) 140 mg/dL (70-99) White Blood Count 10.8 x10^3/uL (4.0-11.0) Red Blood Count 4.70 x10^6/uL (3.50-5.40) Hemoglobin 14.6 g/dL (12.0-15.5) Hematocrit 42.7 % (36.0-47.0) Mean Corpuscular Volume 91 fL (79-100) Mean Corpuscular Hemoglobin 31 pg (25-35) Mean Corpuscular Hemoglobin Concent 34 g/dL (31-37) Red Cell Distribution Width 12.8 % (11.5-14.5) Platelet Count 211 x10^3/uL (140-400) Neutrophils (%) (Auto) 77 % (31-73) Lymphocytes (%) (Auto) 16 % (24-48) Monocytes (%) (Auto) 5 % (0-9) Eosinophils (%) (Auto) 1 % (0-3) Basophils (%) (Auto) 1 % (0-3) Neutrophils # (Auto) 8.4 x10^3uL (1.8-7.7) Lymphocytes # (Auto) 1.7 x10^3/uL (1.0-4.8) Monocytes # (Auto) 0.6 x10^3/uL (0.0-1.1) Eosinophils # (Auto) 0.1 x10^3/uL (0.0-0.7) Basophils # (Auto) 0.1 x10^3/uL (0.0-0.2) Sodium Level 138 mmol/L (136-145) Potassium Level 3.4 mmol/L (3.5-5.1) Chloride Level 100 mmol/L (98-107) Carbon Dioxide Level 25 mmol/L (21-32) Anion Gap 13 (6-14) Blood Urea Nitrogen 14 mg/dL (7-20) Creatinine 1.0 mg/dL (0.6-1.0) Estimated GFR (Cockcroft-Gault) 55.1 Glucose Level 210 mg/dL (70-99) Calcium Level 9.0 mg/dL (8.5-10.1) Test 03/26/17 07:06 03/26/17 11:44 03/26/17 16:45 03/26/17 19:59 Glucose (Fingerstick) 214 mg/dL (70-99) 174 mg/dL (70-99) 221 mg/dL (70-99) 144 mg/dL (70-99) Test 03/27/17 05:03 03/27/17 07:25 White Blood Count 8.8 x10^3/uL (4.0-11.0) Red Blood Count 4.73 x10^6/uL (3.50-5.40) Hemoglobin 14.6 g/dL (12.0-15.5) Hematocrit 42.7 % (36.0-47.0) Mean Corpuscular Volume 90 fL (79-100) Mean Corpuscular Hemoglobin 31 pg (25-35) Mean Corpuscular Hemoglobin Concent 34 g/dL (31-37) Red Cell Distribution Width 12.6 % (11.5-14.5) Platelet Count 210 x10^3/uL (140-400) Neutrophils (%) (Auto) 64 % (31-73) Lymphocytes (%) (Auto) 23 % (24-48) Monocytes (%) (Auto) 9 % (0-9) Eosinophils (%) (Auto) 4 % (0-3) Basophils (%) (Auto) 1 % (0-3) Neutrophils # (Auto) 5.6 x10^3uL (1.8-7.7) Lymphocytes # (Auto) 2.0 x10^3/uL (1.0-4.8) Monocytes # (Auto) 0.8 x10^3/uL (0.0-1.1) Eosinophils # (Auto) 0.3 x10^3/uL (0.0-0.7) Basophils # (Auto) 0.1 x10^3/uL (0.0-0.2) Sodium Level 140 mmol/L (136-145) Potassium Level 3.4 mmol/L (3.5-5.1) Chloride Level 102 mmol/L (98-107) Carbon Dioxide Level 26 mmol/L (21-32) Anion Gap 12 (6-14) Blood Urea Nitrogen 18 mg/dL (7-20) Creatinine 1.0 mg/dL (0.6-1.0) Estimated GFR (Cockcroft-Gault) 55.1 Glucose Level 181 mg/dL (70-99) Calcium Level 8.9 mg/dL (8.5-10.1) Glucose (Fingerstick) 229 mg/dL (70-99) Laboratory Tests Test 03/26/17 11:44 03/26/17 16:45 03/26/17 19:59 03/27/17 05:03 Glucose (Fingerstick) 174 mg/dL (70-99) 221 mg/dL (70-99) 144 mg/dL (70-99) White Blood Count 8.8 x10^3/uL (4.0-11.0) Red Blood Count 4.73 x10^6/uL (3.50-5.40) Hemoglobin 14.6 g/dL (12.0-15.5) Hematocrit 42.7 % (36.0-47.0) Mean Corpuscular Volume 90 fL (79-100) Mean Corpuscular Hemoglobin 31 pg (25-35) Mean Corpuscular Hemoglobin Concent 34 g/dL (31-37) Red Cell Distribution Width 12.6 % (11.5-14.5) Platelet Count 210 x10^3/uL (140-400) Neutrophils (%) (Auto) 64 % (31-73) Lymphocytes (%) (Auto) 23 % (24-48) Monocytes (%) (Auto) 9 % (0-9) Eosinophils (%) (Auto) 4 % (0-3) Basophils (%) (Auto) 1 % (0-3) Neutrophils # (Auto) 5.6 x10^3uL (1.8-7.7) Lymphocytes # (Auto) 2.0 x10^3/uL (1.0-4.8) Monocytes # (Auto) 0.8 x10^3/uL (0.0-1.1) Eosinophils # (Auto) 0.3 x10^3/uL (0.0-0.7) Basophils # (Auto) 0.1 x10^3/uL (0.0-0.2) Sodium Level 140 mmol/L (136-145) Potassium Level 3.4 mmol/L (3.5-5.1) Chloride Level 102 mmol/L (98-107) Carbon Dioxide Level 26 mmol/L (21-32) Anion Gap 12 (6-14) Blood Urea Nitrogen 18 mg/dL (7-20) Creatinine 1.0 mg/dL (0.6-1.0) Estimated GFR (Cockcroft-Gault) 55.1 Glucose Level 181 mg/dL (70-99) Calcium Level 8.9 mg/dL (8.5-10.1) Test 03/27/17 07:25 Glucose (Fingerstick) 229 mg/dL (70-99) Medications Current Medications Insulin Aspart (NovoLOG) 0-5 UNITS TIDWMEALS SQ Last administered on 03/26/17t 17:43; Start 03/24/17 at 17:00 Dextrose (Dextrose 50%-Water Syringe) 12.5 gm PRN Q15MIN PRN IV SEE COMMENTS; Start 03/24/17 at 12:30 Ceftriaxone Sodium 50 ml @ 100 mls/hr 1X ONCE IV Last administered on 13:33; Start 03/24/17 at 13:30; Stop 03/24/17 at 13:59; Status DC Ceftriaxone Sodium 1 gm/ Sodium Chloride 50 ml @ 100 mls/hr Q24H IV Last administered on 03/26/17 17:33; Start 03/25/17 at 14:00 Ondansetron HCl (Zofran) 4 mg PRN Q8HRS PRN IV NAUSEA/VOMITING; Start 03/24/17 at 13:30; Stop 03/25/17 at 13:29; Status DC Sodium Chloride 1,000 ml @ 125 mls/hr Q8H IV Last administered on 03/24/17 13 :37; Start 03/24/17 at 13:45; Stop 03/25/17 at 08:53; Status DC Aspirin (Aspirin) 300 mg 1X ONCE MA Last administered on 03/24/17 13:45; Start 03/24/17 at 13:45; Stop 03/24/17 at 13:46; Status DC Sodium Chloride (Normal Saline Flush) 3 ml QSHIFT PRN IV AFTER MEDS AND BLOOD DRAWS; Start 03/24/17 at 13:45 Sodium Chloride 1,000 ml @ 100 mls/hr Q10H IV Last administered on 03/25/17 01:22; Start 03/24/17 at 14:00; Stop 03/25/17 at 08:53; Status DC Aspirin (Ecotrin) 325 mg DAILYWBKFT PO ; Start 03/25/17 at 08:00 Atorvastatin Calcium (Lipitor) 20 mg QHS PO ; Start 03/24/17 at 21:00 Labetalol HCl (Normodyne) 10 mg PRN Q10MIN PRN IV HYPERTENSION, SEE COMMENTS Last administered on 03/25/17 20:08; Start 03/24/17 at 13:45 Acetaminophen (Tylenol) 650 mg PRN Q6HRS PRN PO FEVER; Start 03/24/17 at 13:45 Acetaminophen (Acetaminophen Supp) 650 mg PRN Q6HRS PRN MA FEVER Last administered on 03/26/17 09:38; Start 03/24/17 at 13:45 Enoxaparin Sodium (Lovenox 40mg Syringe) 40 mg Q24H SQ Last administered on 17:33; Start 03/24/17 at 15:00 Iohexol (Omnipaque 350 Mg/ml) 60 ml 1X ONCE IV Last administered on 03/24/17 16:25; Start 03/24/17 at 16:15; Stop 03/24/17 at 16:20; Status DC Info (Do NOT chart on this entry -- for MONITORING) 1 each PRN DAILY PRN MC SEE COMMENTS; Start 03/24/17 at 16:30; Stop 03/26/17 at 16:29; Status DC Ondansetron HCl (Zofran) 4 mg PRN Q6HRS PRN IV NAUSEA/VOMITING; Start 03/24/17 at 16:30 Amino Acids/ Glycerin/ Electrolytes 1,000 ml @ 80 mls/hr [id number] IV Last administered on 03/27/17 09:56; Start 03/25/17 at 09:30 Barium Sulfate (Varibar Thin Liquid Apple) 148 gm 1X ONCE PO Last administered on 03/26/17 13:30; Start 03/26/17 at 13:30; Stop 03/26/17 at 13:31 ; Status DC Ringer's Solution 1,000 ml @ 50 mls/hr Q20H IV ; Start 03/29/17 at 07:00; Stop 03/29/17 at 18:59 Diphenhydramine HCl (Benadryl) 25 mg PRN Q6HRS PRN IVP ITCHING Last administered on 03/27/17 07:44; Start 03/26/17 at 23:00 Active Scripts Active Reported Atorvastatin Calcium 40 Mg Tablet 1 Tab PO DAILY Losartan Potassium 100 Mg Tablet 100 Mg PO DAILY Aspir 81 (Aspirin) 81 Mg Tablet. 1 Tab PO DAILY Vitals/I & O Vital Sign - Last 24 Hours 03/26/17 03/26/17 03/26/17 03/26/17 15:00 19:39 20:00 23:58 Temp 98.3 98.5 98.2 98.3 98.5 98.2 Pulse 69 73 74 Resp 18 18 18 B/P (MAP) 166/65 (98) 159/62 (94) 110/57 (74) Pulse Ox 96 96 96 O2 Delivery Room Air Room Air Room Air Room Air 03/27/17 03/27/17 03/27/17 03:26 07:00 08:00 Temp 97.9 98.1 97.9 98.1 Pulse 57 62 Resp 18 20 B/P (MAP) 158/54 (88) 145/68 (93) Pulse Ox 96 95 O2 Delivery Room Air Room Air Room Air Intake and Output 03/26/17 03/26/17 03/27/17 15:00 23:00 07:00 Intake Total 0 ml 0 ml Balance 0 ml 0 ml ETIENNE TRAORE MD Mar 27, 2017 11:03
--- NOTE | 2017-03-27 12:42 | PDOC ---
PROGRESS NOTES Chief Complaint Chief Complaint CVA with left sided weakness PMH: htn Type 2 DM - uncontrolled Obesity Not compliant with meds History of Present Illness History of Present Illness Pt speaks chukese, granddaughter at bedside and helping translate Pt is laying in bed. Pt is unable to move left arm, is able to move right arm and both feet. Video swallow was performed, speech pathology recommending NPO until alertness level and timing of swallow improves Labs: K 3.4 Vitals Vitals Vital Signs Date Time Temp Pulse Resp B/P (MAP) Pulse Ox O2 Delivery O2 Flow Rate FiO2 03/27/17 11:00 98.4 58 18 139/60 (86) 95 Room Air 98.4 Physical Exam General: Cooperative, Other (arousable and following commands) Heart: Regular rate Lungs: Clear Abdomen: Soft, No tenderness Extremities: No clubbing, No cyanosis, No edema, Other (left arm paralyzed) Skin: No rashes, No breakdown Labs LABS Laboratory Tests Test 03/26/17 16:45 03/26/17 19:59 03/27/17 05:03 03/27/17 07:25 Glucose (Fingerstick) 221 mg/dL (70-99) 144 mg/dL (70-99) 229 mg/dL (70-99) White Blood Count 8.8 x10^3/uL (4.0-11.0) Red Blood Count 4.73 x10^6/uL (3.50-5.40) Hemoglobin 14.6 g/dL (12.0-15.5) Hematocrit 42.7 % (36.0-47.0) Mean Corpuscular Volume 90 fL (79-100) Mean Corpuscular Hemoglobin 31 pg (25-35) Mean Corpuscular Hemoglobin Concent 34 g/dL (31-37) Red Cell Distribution Width 12.6 % (11.5-14.5) Platelet Count 210 x10^3/uL (140-400) Neutrophils (%) (Auto) 64 % (31-73) Lymphocytes (%) (Auto) 23 % (24-48) Monocytes (%) (Auto) 9 % (0-9) Eosinophils (%) (Auto) 4 % (0-3) Basophils (%) (Auto) 1 % (0-3) Neutrophils # (Auto) 5.6 x10^3uL (1.8-7.7) Lymphocytes # (Auto) 2.0 x10^3/uL (1.0-4.8) Monocytes # (Auto) 0.8 x10^3/uL (0.0-1.1) Eosinophils # (Auto) 0.3 x10^3/uL (0.0-0.7) Basophils # (Auto) 0.1 x10^3/uL (0.0-0.2) Sodium Level 140 mmol/L (136-145) Potassium Level 3.4 mmol/L (3.5-5.1) Chloride Level 102 mmol/L (98-107) Carbon Dioxide Level 26 mmol/L (21-32) Anion Gap 12 (6-14) Blood Urea Nitrogen 18 mg/dL (7-20) Creatinine 1.0 mg/dL (0.6-1.0) Estimated GFR (Cockcroft-Gault) 55.1 Glucose Level 181 mg/dL (70-99) Calcium Level 8.9 mg/dL (8.5-10.1) Test 03/27/17 11:30 Glucose (Fingerstick) 185 mg/dL (70-99) Review of Systems Review of Systems Left arm paralysis dysphagia Assessment and Plan Assessmemt and Plan Problems Medical Problems: (1) CVA (cerebral vascular accident) Status: Acute Ischemic stroke Dysphagia Right carotid artery occlusion Left vertebral artery occlusion Hypokalemia 1. Hypokalemia - IV potassium 40 mEq/4 hrs 2. Continue NPO, failed swallow test, video swallow - significant oral delay, risk of aspiration. Speech pathology following 3. GI consulted for possible PEG tube placement 4. Continue procalamine IV 5. Right carotid artery occlusion - no indication for surgery per Dr. Cordero 6. Continue PT/OT 7. Continue abx for UTI 8. Continue DVT prophylaxis - lovenox 9. Recheck labs - CBC, BMP 10. Appreciate subspecialty input Problems: Comment Review of Relevant I have reviewed the following items tamie (where applicable) has been applied. Labs Laboratory Tests Test 03/25/17 17:36 03/25/17 20:33 03/26/17 05:00 03/26/17 07:06 Glucose (Fingerstick) 134 mg/dL (70-99) 140 mg/dL (70-99) 214 mg/dL (70-99) White Blood Count 10.8 x10^3/uL (4.0-11.0) Red Blood Count 4.70 x10^6/uL (3.50-5.40) Hemoglobin 14.6 g/dL (12.0-15.5) Hematocrit 42.7 % (36.0-47.0) Mean Corpuscular Volume 91 fL (79-100) Mean Corpuscular Hemoglobin 31 pg (25-35) Mean Corpuscular Hemoglobin Concent 34 g/dL (31-37) Red Cell Distribution Width 12.8 % (11.5-14.5) Platelet Count 211 x10^3/uL (140-400) Neutrophils (%) (Auto) 77 % (31-73) Lymphocytes (%) (Auto) 16 % (24-48) Monocytes (%) (Auto) 5 % (0-9) Eosinophils (%) (Auto) 1 % (0-3) Basophils (%) (Auto) 1 % (0-3) Neutrophils # (Auto) 8.4 x10^3uL (1.8-7.7) Lymphocytes # (Auto) 1.7 x10^3/uL (1.0-4.8) Monocytes # (Auto) 0.6 x10^3/uL (0.0-1.1) Eosinophils # (Auto) 0.1 x10^3/uL (0.0-0.7) Basophils # (Auto) 0.1 x10^3/uL (0.0-0.2) Sodium Level 138 mmol/L (136-145) Potassium Level 3.4 mmol/L (3.5-5.1) Chloride Level 100 mmol/L (98-107) Carbon Dioxide Level 25 mmol/L (21-32) Anion Gap 13 (6-14) Blood Urea Nitrogen 14 mg/dL (7-20) Creatinine 1.0 mg/dL (0.6-1.0) Estimated GFR (Cockcroft-Gault) 55.1 Glucose Level 210 mg/dL (70-99) Calcium Level 9.0 mg/dL (8.5-10.1) Test 03/26/17 11:44 03/26/17 16:45 03/26/17 19:59 03/27/17 05:03 Glucose (Fingerstick) 174 mg/dL (70-99) 221 mg/dL (70-99) 144 mg/dL (70-99) White Blood Count 8.8 x10^3/uL (4.0-11.0) Red Blood Count 4.73 x10^6/uL (3.50-5.40) Hemoglobin 14.6 g/dL (12.0-15.5) Hematocrit 42.7 % (36.0-47.0) Mean Corpuscular Volume 90 fL (79-100) Mean Corpuscular Hemoglobin 31 pg (25-35) Mean Corpuscular Hemoglobin Concent 34 g/dL (31-37) Red Cell Distribution Width 12.6 % (11.5-14.5) Platelet Count 210 x10^3/uL (140-400) Neutrophils (%) (Auto) 64 % (31-73) Lymphocytes (%) (Auto) 23 % (24-48) Monocytes (%) (Auto) 9 % (0-9) Eosinophils (%) (Auto) 4 % (0-3) Basophils (%) (Auto) 1 % (0-3) Neutrophils # (Auto) 5.6 x10^3uL (1.8-7.7) Lymphocytes # (Auto) 2.0 x10^3/uL (1.0-4.8) Monocytes # (Auto) 0.8 x10^3/uL (0.0-1.1) Eosinophils # (Auto) 0.3 x10^3/uL (0.0-0.7) Basophils # (Auto) 0.1 x10^3/uL (0.0-0.2) Sodium Level 140 mmol/L (136-145) Potassium Level 3.4 mmol/L (3.5-5.1) Chloride Level 102 mmol/L (98-107) Carbon Dioxide Level 26 mmol/L (21-32) Anion Gap 12 (6-14) Blood Urea Nitrogen 18 mg/dL (7-20) Creatinine 1.0 mg/dL (0.6-1.0) Estimated GFR (Cockcroft-Gault) 55.1 Glucose Level 181 mg/dL (70-99) Calcium Level 8.9 mg/dL (8.5-10.1) Test 03/27/17 07:25 03/27/17 11:30 Glucose (Fingerstick) 229 mg/dL (70-99) 185 mg/dL (70-99) Laboratory Tests Test 03/26/17 16:45 03/26/17 19:59 03/27/17 05:03 03/27/17 07:25 Glucose (Fingerstick) 221 mg/dL (70-99) 144 mg/dL (70-99) 229 mg/dL (70-99) White Blood Count 8.8 x10^3/uL (4.0-11.0) Red Blood Count 4.73 x10^6/uL (3.50-5.40) Hemoglobin 14.6 g/dL (12.0-15.5) Hematocrit 42.7 % (36.0-47.0) Mean Corpuscular Volume 90 fL (79-100) Mean Corpuscular Hemoglobin 31 pg (25-35) Mean Corpuscular Hemoglobin Concent 34 g/dL (31-37) Red Cell Distribution Width 12.6 % (11.5-14.5) Platelet Count 210 x10^3/uL (140-400) Neutrophils (%) (Auto) 64 % (31-73) Lymphocytes (%) (Auto) 23 % (24-48) Monocytes (%) (Auto) 9 % (0-9) Eosinophils (%) (Auto) 4 % (0-3) Basophils (%) (Auto) 1 % (0-3) Neutrophils # (Auto) 5.6 x10^3uL (1.8-7.7) Lymphocytes # (Auto) 2.0 x10^3/uL (1.0-4.8) Monocytes # (Auto) 0.8 x10^3/uL (0.0-1.1) Eosinophils # (Auto) 0.3 x10^3/uL (0.0-0.7) Basophils # (Auto) 0.1 x10^3/uL (0.0-0.2) Sodium Level 140 mmol/L (136-145) Potassium Level 3.4 mmol/L (3.5-5.1) Chloride Level 102 mmol/L (98-107) Carbon Dioxide Level 26 mmol/L (21-32) Anion Gap 12 (6-14) Blood Urea Nitrogen 18 mg/dL (7-20) Creatinine 1.0 mg/dL (0.6-1.0) Estimated GFR (Cockcroft-Gault) 55.1 Glucose Level 181 mg/dL (70-99) Calcium Level 8.9 mg/dL (8.5-10.1) Test 03/27/17 11:30 Glucose (Fingerstick) 185 mg/dL (70-99) Medications Current Medications Insulin Aspart (NovoLOG) 0-5 UNITS TIDWMEALS SQ Last administered on 03/26/17 17:43; Start 03/24/17 at 17:00 Dextrose (Dextrose 50%-Water Syringe) 12.5 gm PRN Q15MIN PRN IV SEE COMMENTS; Start 03/24/17 at 12:30 Ceftriaxone Sodium 50 ml @ 100 mls/hr 1X ONCE IV Last administered on 13:33; Start 03/24/17 at 13:30; Stop 03/24/17 at 13:59; Status DC Ceftriaxone Sodium 1 gm/ Sodium Chloride 50 ml @ 100 mls/hr Q24H IV Last administered on 03/26/17 17:33; Start 03/25/17 at 14:00 Ondansetron HCl (Zofran) 4 mg PRN Q8HRS PRN IV NAUSEA/VOMITING; Start 03/24/17 at 13:30; Stop 03/25/17 at 13:29; Status DC Sodium Chloride 1,000 ml @ 125 mls/hr Q8H IV Last administered on 03/24/17 13 :37; Start 03/24/17 at 13:45; Stop 03/25/17 at 08:53; Status DC Aspirin (Aspirin) 300 mg 1X ONCE IA Last administered on 03/24/17 13:45; Start 03/24/17 at 13:45; Stop 03/24/17 at 13:46; Status DC Sodium Chloride (Normal Saline Flush) 3 ml QSHIFT PRN IV AFTER MEDS AND BLOOD DRAWS; Start 03/24/17 at 13:45 Sodium Chloride 1,000 ml @ 100 mls/hr Q10H IV Last administered on 03/25/17 01:22; Start 03/24/17 at 14:00; Stop 03/25/17 at 08:53; Status DC Aspirin (Ecotrin) 325 mg DAILYWBKFT PO ; Start 03/25/17 at 08:00 Atorvastatin Calcium (Lipitor) 20 mg QHS PO ; Start 03/24/17 at 21:00 Labetalol HCl (Normodyne) 10 mg PRN Q10MIN PRN IV HYPERTENSION, SEE COMMENTS Last administered on 03/25/17 20:08; Start 03/24/17 at 13:45 Acetaminophen (Tylenol) 650 mg PRN Q6HRS PRN PO FEVER; Start 03/24/17 at 13:45 Acetaminophen (Acetaminophen Supp) 650 mg PRN Q6HRS PRN [place] FEVER Last administered on 03/26/17 09:38; Start 03/24/17 at 13:45 Enoxaparin Sodium (Lovenox 40mg Syringe) 40 mg Q24H SQ Last administered on 17:33; Start 03/24/17 at 15:00 Iohexol (Omnipaque 350 Mg/ml) 60 ml 1X ONCE IV Last administered on 03/24/17 16:25; Start 03/24/17 at 16:15; Stop 03/24/17 at 16:20; Status DC Info (Do NOT chart on this entry -- for MONITORING) 1 each PRN DAILY PRN MC SEE COMMENTS; Start 03/24/17 at 16:30; Stop 03/26/17 at 16:29; Status DC Ondansetron HCl (Zofran) 4 mg PRN Q6HRS PRN IV NAUSEA/VOMITING; Start 03/24/17 at 16:30 Amino Acids/ Glycerin/ Electrolytes 1,000 ml @ 80 mls/hr [id number] IV Last administered on 03/27/17 09:56; Start 03/25/17 at 09:30 Barium Sulfate (Varibar Thin Liquid Apple) 148 gm 1X ONCE PO Last administered on 03/26/17 13:30; Start 03/26/17 at 13:30; Stop 03/26/17 at 13:31 ; Status DC Ringer's Solution 1,000 ml @ 50 mls/hr Q20H IV ; Start 03/29/17 at 07:00; Stop 03/29/17 at 18:59 Diphenhydramine HCl (Benadryl) 25 mg PRN Q6HRS PRN IVP ITCHING Last administered on 03/27/17 07:44; Start 03/26/17 at 23:00 Active Scripts Active Reported Atorvastatin Calcium 40 Mg Tablet 1 Tab PO DAILY Losartan Potassium 100 Mg Tablet 100 Mg PO DAILY Aspir 81 (Aspirin) 81 Mg Tablet. 1 Tab PO DAILY Vitals/I & O Vital Sign - Last 24 Hours 03/26/17 03/26/17 03/26/17 03/26/17 15:00 19:39 20:00 23:58 Temp 98.3 98.5 98.2 98.3 98.5 98.2 Pulse 69 73 74 Resp 18 18 18 B/P (MAP) 166/65 (98) 159/62 (94) 110/57 (74) Pulse Ox 96 96 96 O2 Delivery Room Air Room Air Room Air Room Air 03/27/17 03/27/17 03/27/17 03/27/17 03:26 07:00 08:00 11:00 Temp 97.9 98.1 98.4 97.9 98.1 98.4 Pulse 57 62 58 Resp 18 20 18 B/P (MAP) 158/54 (88) 145/68 (93) 139/60 (86) Pulse Ox 96 95 95 O2 Delivery Room Air Room Air Room Air Room Air Intake and Output 03/26/17 03/26/17 03/27/17 14:59 22:59 06:59 Intake Total 0 ml 0 ml Balance 0 ml 0 ml CHAGO VERGARA III DO Mar 27, 2017 12:42
[2017-03-27] MEDS ORDERED: POTASSIUM CHLORIDE 20MEQ 50 ML IV SCH (13:00)
[2017-03-27 15:00] VITALS: BP 135/56
[2017-03-27] MEDS: POTASSIUM CHLORIDE 10MEQ 100 ML IV SCH ×4 (15:23→19:45)
[2017-03-27] MEDS: ENOXAPARIN 40 MG/0.4 ML SYRINGE. SQ SCH (15:24)
[2017-03-27 19:10] VITALS: BP 167/89
[2017-03-27] MEDS: ATORVASTATIN CALCIUM 20 MG TABLET PO SCH (19:41)
[2017-03-27] MEDS: ACETAMINOPHEN 650 MG SUPP.RECT. PR PRN (21:26)
[2017-03-28 03:10] VITALS: BP 124/53
[2017-03-28 07:00] VITALS: BP 137/62
[2017-03-28] MEDS: ASPIRIN ENTERIC COATED 325 MG TABLET.DR. PO SCH (08:12)
[2017-03-28] MEDS: INSULIN ASPART 300 UNITS/3 ML INSULN.PEN SQ SCH ×3 (08:12→18:26)
[2017-03-28 08:15] LABS: BASO # 0.1 x10^3/uL (0.0-0.2); BASO % 1 % (0-3); EOS % 3 % (0-3); HEMATOCRIT 43.6 % (36.0-47.0); HEMOGLOBIN 14.3 g/dL (12.0-15.5); LYMPH # 1.6 x10^3/uL (1.0-4.8); LYMPH % 13 % (24-48); MEAN CORPUSCULAR HEMOGLOBIN 30 pg (25-35); MEAN CORPUSCULAR HGB CONC 33 g/dL (31-37); MEAN CORPUSCULAR VOLUME 92 fL (79-100); MONO % 6 % (0-9); NEUT % 78 % (31-73); PLATELET COUNT 193 x10^3/uL (140-400); RED BLOOD COUNT 4.71 x10^6/uL (3.50-5.40); RED CELL DISTRIBUTION WIDTH 12.7 % (11.5-14.5); WHITE BLOOD COUNT 12.5 x10^3/uL (4.0-11.0)
[2017-03-28 08:32] LABS: CALCIUM 8.7 mg/dL (8.5-10.1); GFR 55.1; POTASSIUM 4.1 mmol/L (3.5-5.1)
[2017-03-28 11:00] VITALS: BP 132/54
[2017-03-28] MEDS: AMINO AC 3%/ELECTROLYTE/GLYCER 1,000 ML IV SCH ×2 (12:14→21:44)
--- NOTE | 2017-03-28 14:16 | PDOC ---
PROGRESS NOTES Chief Complaint Chief Complaint CVA with left sided weakness PMH: htn Type 2 DM - uncontrolled Obesity Not compliant with meds History of Present Illness History of Present Illness Pt speaks chukese, granddaughter at bedside and helping translate Pt is laying in bed. Pt still unable to move left arm. Complains of low abdominal pain. Video swallow was performed, speech pathology recommending NPO until alertness level and timing of swallow improves. Waiting for speech pathology follow up. GI has scheduled a possible PEG tube for tomorrow. Potassium level has improved. WBC 12.5, pt is on ceftriaxone for UTI Vitals Vitals Vital Signs Date Time Temp Pulse Resp B/P (MAP) Pulse Ox O2 Delivery O2 Flow Rate FiO2 03/28/17 11:00 98.9 73 20 132/54 (80) 100 Room Air 98.9 Physical Exam General: Cooperative, Other (arousable and following commands) Heart: Regular rate Lungs: Clear Abdomen: Soft, No tenderness Extremities: No clubbing, No cyanosis, No edema, Other (left arm paralyzed) Skin: No rashes, No breakdown Labs LABS Laboratory Tests Test 03/27/17 16:36 03/27/17 20:29 03/28/17 07:00 03/28/17 07:16 Glucose (Fingerstick) 205 mg/dL (70-99) 169 mg/dL (70-99) 189 mg/dL (70-99) White Blood Count 12.5 x10^3/uL (4.0-11.0) Red Blood Count 4.71 x10^6/uL (3.50-5.40) Hemoglobin 14.3 g/dL (12.0-15.5) Hematocrit 43.6 % (36.0-47.0) Mean Corpuscular Volume 92 fL (79-100) Mean Corpuscular Hemoglobin 30 pg (25-35) Mean Corpuscular Hemoglobin Concent 33 g/dL (31-37) Red Cell Distribution Width 12.7 % (11.5-14.5) Platelet Count 193 x10^3/uL (140-400) Neutrophils (%) (Auto) 78 % (31-73) Lymphocytes (%) (Auto) 13 % (24-48) Monocytes (%) (Auto) 6 % (0-9) Eosinophils (%) (Auto) 3 % (0-3) Basophils (%) (Auto) 1 % (0-3) Neutrophils # (Auto) 9.8 x10^3uL (1.8-7.7) Lymphocytes # (Auto) 1.6 x10^3/uL (1.0-4.8) Monocytes # (Auto) 0.7 x10^3/uL (0.0-1.1) Eosinophils # (Auto) 0.4 x10^3/uL (0.0-0.7) Basophils # (Auto) 0.1 x10^3/uL (0.0-0.2) Sodium Level 136 mmol/L (136-145) Potassium Level 4.1 mmol/L (3.5-5.1) Chloride Level 102 mmol/L (98-107) Carbon Dioxide Level 25 mmol/L (21-32) Anion Gap 9 (6-14) Blood Urea Nitrogen 20 mg/dL (7-20) Creatinine 1.0 mg/dL (0.6-1.0) Estimated GFR (Cockcroft-Gault) 55.1 Glucose Level 211 mg/dL (70-99) Calcium Level 8.7 mg/dL (8.5-10.1) Test 03/28/17 11:38 Glucose (Fingerstick) 216 mg/dL (70-99) Review of Systems Review of Systems Abdominal pain left arm paralysis Dysphagia Assessment and Plan Assessmemt and Plan Problems Medical Problems: (1) CVA (cerebral vascular accident) Status: Acute Ischemic stroke Dysphagia 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 Abdominal pain - will ask GI to evaluate further. 2. Continue NPO, failed swallow test, video swallow - significant oral delay, risk of aspiration. Speech pathology following 3. GI consulted for possible PEG tube placement tomorrow 4. Continue procalamine IV 5. Right carotid artery occlusion - no indication for surgery per Dr. Cordero 6. Continue PT/OT 7. Continue ceftriaxone for UTI 8. Continue DVT prophylaxis - lovenox 9. Recheck labs - CBC, BMP 10. Continue home meds 11. Appreciate subspecialty input Problems: Comment Review of Relevant I have reviewed the following items tamie (where applicable) has been applied. Labs Laboratory Tests Test 03/26/17 16:45 03/26/17 19:59 03/27/17 05:03 03/27/17 07:25 Glucose (Fingerstick) 221 mg/dL (70-99) 144 mg/dL (70-99) 229 mg/dL (70-99) White Blood Count 8.8 x10^3/uL (4.0-11.0) Red Blood Count 4.73 x10^6/uL (3.50-5.40) Hemoglobin 14.6 g/dL (12.0-15.5) Hematocrit 42.7 % (36.0-47.0) Mean Corpuscular Volume 90 fL (79-100) Mean Corpuscular Hemoglobin 31 pg (25-35) Mean Corpuscular Hemoglobin Concent 34 g/dL (31-37) Red Cell Distribution Width 12.6 % (11.5-14.5) Platelet Count 210 x10^3/uL (140-400) Neutrophils (%) (Auto) 64 % (31-73) Lymphocytes (%) (Auto) 23 % (24-48) Monocytes (%) (Auto) 9 % (0-9) Eosinophils (%) (Auto) 4 % (0-3) Basophils (%) (Auto) 1 % (0-3) Neutrophils # (Auto) 5.6 x10^3uL (1.8-7.7) Lymphocytes # (Auto) 2.0 x10^3/uL (1.0-4.8) Monocytes # (Auto) 0.8 x10^3/uL (0.0-1.1) Eosinophils # (Auto) 0.3 x10^3/uL (0.0-0.7) Basophils # (Auto) 0.1 x10^3/uL (0.0-0.2) Sodium Level 140 mmol/L (136-145) Potassium Level 3.4 mmol/L (3.5-5.1) Chloride Level 102 mmol/L (98-107) Carbon Dioxide Level 26 mmol/L (21-32) Anion Gap 12 (6-14) Blood Urea Nitrogen 18 mg/dL (7-20) Creatinine 1.0 mg/dL (0.6-1.0) Estimated GFR (Cockcroft-Gault) 55.1 Glucose Level 181 mg/dL (70-99) Calcium Level 8.9 mg/dL (8.5-10.1) Test 8/26/17 11:30 03/27/17 16:36 03/27/17 20:29 03/28/17 07:00 Glucose (Fingerstick) 185 mg/dL (70-99) 205 mg/dL (70-99) 169 mg/dL (70-99) White Blood Count 12.5 x10^3/uL (4.0-11.0) Red Blood Count 4.71 x10^6/uL (3.50-5.40) Hemoglobin 14.3 g/dL (12.0-15.5) Hematocrit 43.6 % (36.0-47.0) Mean Corpuscular Volume 92 fL (79-100) Mean Corpuscular Hemoglobin 30 pg (25-35) Mean Corpuscular Hemoglobin Concent 33 g/dL (31-37) Red Cell Distribution Width 12.7 % (11.5-14.5) Platelet Count 193 x10^3/uL (140-400) Neutrophils (%) (Auto) 78 % (31-73) Lymphocytes (%) (Auto) 13 % (24-48) Monocytes (%) (Auto) 6 % (0-9) Eosinophils (%) (Auto) 3 % (0-3) Basophils (%) (Auto) 1 % (0-3) Neutrophils # (Auto) 9.8 x10^3uL (1.8-7.7) Lymphocytes # (Auto) 1.6 x10^3/uL (1.0-4.8) Monocytes # (Auto) 0.7 x10^3/uL (0.0-1.1) Eosinophils # (Auto) 0.4 x10^3/uL (0.0-0.7) Basophils # (Auto) 0.1 x10^3/uL (0.0-0.2) Sodium Level 136 mmol/L (136-145) Potassium Level 4.1 mmol/L (3.5-5.1) Chloride Level 102 mmol/L (98-107) Carbon Dioxide Level 25 mmol/L (21-32) Anion Gap 9 (6-14) Blood Urea Nitrogen 20 mg/dL (7-20) Creatinine 1.0 mg/dL (0.6-1.0) Estimated GFR (Cockcroft-Gault) 55.1 Glucose Level 211 mg/dL (70-99) Calcium Level 8.7 mg/dL (8.5-10.1) Test 03/28/17 07:16 03/28/17 11:38 Glucose (Fingerstick) 189 mg/dL (70-99) 216 mg/dL (70-99) Laboratory Tests Test 03/27/17 16:36 03/27/17 20:29 03/28/17 07:00 03/28/17 07:16 Glucose (Fingerstick) 205 mg/dL (70-99) 169 mg/dL (70-99) 189 mg/dL (70-99) White Blood Count 12.5 x10^3/uL (4.0-11.0) Red Blood Count 4.71 x10^6/uL (3.50-5.40) Hemoglobin 14.3 g/dL (12.0-15.5) Hematocrit 43.6 % (36.0-47.0) Mean Corpuscular Volume 92 fL (79-100) Mean Corpuscular Hemoglobin 30 pg (25-35) Mean Corpuscular Hemoglobin Concent 33 g/dL (31-37) Red Cell Distribution Width 12.7 % (11.5-14.5) Platelet Count 193 x10^3/uL (140-400) Neutrophils (%) (Auto) 78 % (31-73) Lymphocytes (%) (Auto) 13 % (24-48) Monocytes (%) (Auto) 6 % (0-9) Eosinophils (%) (Auto) 3 % (0-3) Basophils (%) (Auto) 1 % (0-3) Neutrophils # (Auto) 9.8 x10^3uL (1.8-7.7) Lymphocytes # (Auto) 1.6 x10^3/uL (1.0-4.8) Monocytes # (Auto) 0.7 x10^3/uL (0.0-1.1) Eosinophils # (Auto) 0.4 x10^3/uL (0.0-0.7) Basophils # (Auto) 0.1 x10^3/uL (0.0-0.2) Sodium Level 136 mmol/L (136-145) Potassium Level 4.1 mmol/L (3.5-5.1) Chloride Level 102 mmol/L (98-107) Carbon Dioxide Level 25 mmol/L (21-32) Anion Gap 9 (6-14) Blood Urea Nitrogen 20 mg/dL (7-20) Creatinine 1.0 mg/dL (0.6-1.0) Estimated GFR (Cockcroft-Gault) 55.1 Glucose Level 211 mg/dL (70-99) Calcium Level 8.7 mg/dL (8.5-10.1) Test 03/28/17 11:38 Glucose (Fingerstick) 216 mg/dL (70-99) Medications Current Medications Insulin Aspart (NovoLOG) 0-5 UNITS TIDWMEALS SQ Last administered on 03/26/17 17:43; Start 03/24/17 at 17:00 Dextrose (Dextrose 50%-Water Syringe) 12.5 gm PRN Q15MIN PRN IV SEE COMMENTS; Start 03/24/17 at 12:30 Ceftriaxone Sodium 50 ml @ 100 mls/hr 1X ONCE IV Last administered on 13:33; Start 03/24/17 at 13:30; Stop 03/24/17 at 13:59; Status DC Ceftriaxone Sodium 1 gm/ Sodium Chloride 50 ml @ 100 mls/hr Q24H IV Last administered on 03/27/17 14:16; Start 03/25/17 at 14:00 Ondansetron HCl (Zofran) 4 mg PRN Q8HRS PRN IV NAUSEA/VOMITING; Start 03/24/17 at 13:30; Stop 03/25/17 at 13:29; Status DC Sodium Chloride 1,000 ml @ 125 mls/hr Q8H IV Last administered on 03/24/17 13 :37; Start 03/24/17 at 13:45; Stop 03/25/17 at 08:53; Status DC Aspirin (Aspirin) 300 mg 1X ONCE WI Last administered on 03/24/17 13:45; Start 03/24/17 at 13:45; Stop 03/24/17 at 13:46; Status DC Sodium Chloride (Normal Saline Flush) 3 ml QSHIFT PRN IV AFTER MEDS AND BLOOD DRAWS; Start 03/24/17 at 13:45 Sodium Chloride 1,000 ml @ 100 mls/hr Q10H IV Last administered on 03/25/17 01:22; Start 03/24/17 at 14:00; Stop 03/25/17 at 08:53; Status DC Aspirin (Ecotrin) 325 mg DAILYWBKFT PO ; Start 03/25/17 at 08:00 Atorvastatin Calcium (Lipitor) 20 mg QHS PO ; Start 03/24/17 at 21:00 Labetalol HCl (Normodyne) 10 mg PRN Q10MIN PRN IV HYPERTENSION, SEE COMMENTS Last administered on 03/25/17 20:08; Start 03/24/17 at 13:45 Acetaminophen (Tylenol) 650 mg PRN Q6HRS PRN PO FEVER; Start 03/24/17 at 13:45 Acetaminophen (Acetaminophen Supp) 650 mg PRN Q6HRS PRN WI FEVER Last administered on 03/27/17 21:26; Start 03/24/17 at 13:45 Enoxaparin Sodium (Lovenox 40mg Syringe) 40 mg Q24H SQ Last administered on 15:24; Start 03/24/17 at 15:00 Iohexol (Omnipaque 350 Mg/ml) 60 ml 1X ONCE IV Last administered on 03/24/17 16:25; Start 03/24/17 at 16:15; Stop 03/24/17 at 16:20; Status DC Info (Do NOT chart on this entry -- for MONITORING) 1 each PRN DAILY PRN MC SEE COMMENTS; Start 03/24/17 at 16:30; Stop 03/26/17 at 16:29; Status DC Ondansetron HCl (Zofran) 4 mg PRN Q6HRS PRN IV NAUSEA/VOMITING; Start 03/24/17 at 16:30 Amino Acids/ Glycerin/ Electrolytes 1,000 ml @ 80 mls/hr [id number] IV Last administered on 03/28/17 12:14; Start 03/25/17 at 09:30 Barium Sulfate (Varibar Thin Liquid Apple) 148 gm 1X ONCE PO Last administered on 03/26/17 13:30; Start 03/26/17 at 13:30; Stop 03/26/17 at 13:31 ; Status DC Ringer's Solution 1,000 ml @ 50 mls/hr Q20H IV ; Start 03/29/17 at 07:00; Stop 03/29/17 at 18:59 Diphenhydramine HCl (Benadryl) 25 mg PRN Q6HRS PRN IVP ITCHING Last administered on 03/27/17 07:44; Start 03/26/17 at 23:00 Potassium Chloride 50 ml @ 50 mls/hr Q1H IV ; Start 03/27/17 at 13:00; Stop at 14:59; Status UNV Potassium Chloride 100 ml @ 100 mls/hr Q1H IV Last administered on 03/27/17 19:45; Start 03/27/17 at 13:00; Stop 03/27/17 at 16:59; Status DC Active Scripts Active Reported Atorvastatin Calcium 40 Mg Tablet 1 Tab PO DAILY Losartan Potassium 100 Mg Tablet 100 Mg PO DAILY Aspir 81 (Aspirin) 81 Mg Tablet. 1 Tab PO DAILY Vitals/I & O Vital Sign - Last 24 Hours 03/27/17 03/27/17 03/27/17 03/28/17 15:00 19:10 20:05 03:10 Temp 98.6 98.5 98.4 98.6 98.5 98.4 Pulse 61 81 69 Resp 18 18 18 B/P (MAP) 135/56 (82) 167/89 (115) 124/53 (76) Pulse Ox 97 94 91 O2 Delivery Room Air Room Air Room Air Room Air 03/28/17 03/28/17 03/28/17 07:00 08:00 11:00 Temp 99.2 98.9 99.2 98.9 Pulse 69 73 Resp 18 20 B/P (MAP) 137/62 (87) 132/54 (80) Pulse Ox 94 100 O2 Delivery Room Air Room Air Room Air Intake and Output 03/27/17 03/27/17 03/28/17 15:00 23:00 07:00 Intake Total 0 ml 0 ml Balance 0 ml 0 ml URSULANIAL K III DO Mar 28, 2017 14:16
--- NOTE | 2017-03-28 14:42 | PDOC ---
PROGRESS NOTES Assessment Problems Medical Problems: (1) CVA (cerebral vascular accident) Status: Acute Strokes related to right carotid artery occlusion, not a total carotid- distribution infarct on today's head CT Also has left vertebral artery occlusion Left carotid artery is patent Hyperlipidemia Plan Heparin is not helpful in this situation Rehabilitation modalities ProcalAmine I anticipate she will need a PEG tube but reasonable to wait over the weekend to see if she does regain swallowing Permissive hypertension, current blood pressure parameters. Statin when PEG placed or able to swallow. Discussed fully with patient and family Defer management of abdominal pain and itching to primary service. Subjective Pain and itching better. Objective Vital Signs Date Time Temp Pulse Resp B/P (MAP) Pulse Ox O2 Delivery O2 Flow Rate FiO2 03/28/17 11:00 98.9 73 20 132/54 (80) 100 Room Air 98.9 Intake and Output 03/28/17 07:00 Intake Total 0 ml Balance 0 ml Intake Oral 0 ml # Voids 9 PHYSICAL EXAM Eyes closed. Oriented to person. PERRL. EOMI. CN: Left field cut, left central facial weakness Muscle tone: normal. Muscle strength: 3/5 on left DTR: 2+ Plantar reflex: Flexor on right, extensor on left Gait: not examined in bed. Sensory exam: Left hemisensory loss No cerebellar signs elicited, out of proportion to the weakness. Review of Relevant I have reviewed the following items tamie (where applicable) has been applied. Labs Laboratory Tests Test 03/26/17 16:45 03/26/17 19:59 03/27/17 05:03 03/27/17 07:25 Glucose (Fingerstick) 221 mg/dL (70-99) 144 mg/dL (70-99) 229 mg/dL (70-99) White Blood Count 8.8 x10^3/uL (4.0-11.0) Red Blood Count 4.73 x10^6/uL (3.50-5.40) Hemoglobin 14.6 g/dL (12.0-15.5) Hematocrit 42.7 % (36.0-47.0) Mean Corpuscular Volume 90 fL (79-100) Mean Corpuscular Hemoglobin 31 pg (25-35) Mean Corpuscular Hemoglobin Concent 34 g/dL (31-37) Red Cell Distribution Width 12.6 % (11.5-14.5) Platelet Count 210 x10^3/uL (140-400) Neutrophils (%) (Auto) 64 % (31-73) Lymphocytes (%) (Auto) 23 % (24-48) Monocytes (%) (Auto) 9 % (0-9) Eosinophils (%) (Auto) 4 % (0-3) Basophils (%) (Auto) 1 % (0-3) Neutrophils # (Auto) 5.6 x10^3uL (1.8-7.7) Lymphocytes # (Auto) 2.0 x10^3/uL (1.0-4.8) Monocytes # (Auto) 0.8 x10^3/uL (0.0-1.1) Eosinophils # (Auto) 0.3 x10^3/uL (0.0-0.7) Basophils # (Auto) 0.1 x10^3/uL (0.0-0.2) Sodium Level 140 mmol/L (136-145) Potassium Level 3.4 mmol/L (3.5-5.1) Chloride Level 102 mmol/L (98-107) Carbon Dioxide Level 26 mmol/L (21-32) Anion Gap 12 (6-14) Blood Urea Nitrogen 18 mg/dL (7-20) Creatinine 1.0 mg/dL (0.6-1.0) Estimated GFR (Cockcroft-Gault) 55.1 Glucose Level 181 mg/dL (70-99) Calcium Level 8.9 mg/dL (8.5-10.1) Test 03/27/17 11:30 03/27/17 16:36 03/27/17 20:29 03/28/17 07:00 Glucose (Fingerstick) 185 mg/dL (70-99) 205 mg/dL (70-99) 169 mg/dL (70-99) White Blood Count 12.5 x10^3/uL (4.0-11.0) Red Blood Count 4.71 x10^6/uL (3.50-5.40) Hemoglobin 14.3 g/dL (12.0-15.5) Hematocrit 43.6 % (36.0-47.0) Mean Corpuscular Volume 92 fL (79-100) Mean Corpuscular Hemoglobin 30 pg (25-35) Mean Corpuscular Hemoglobin Concent 33 g/dL (31-37) Red Cell Distribution Width 12.7 % (11.5-14.5) Platelet Count 193 x10^3/uL (140-400) Neutrophils (%) (Auto) 78 % (31-73) Lymphocytes (%) (Auto) 13 % (24-48) Monocytes (%) (Auto) 6 % (0-9) Eosinophils (%) (Auto) 3 % (0-3) Basophils (%) (Auto) 1 % (0-3) Neutrophils # (Auto) 9.8 x10^3uL (1.8-7.7) Lymphocytes # (Auto) 1.6 x10^3/uL (1.0-4.8) Monocytes # (Auto) 0.7 x10^3/uL (0.0-1.1) Eosinophils # (Auto) 0.4 x10^3/uL (0.0-0.7) Basophils # (Auto) 0.1 x10^3/uL (0.0-0.2) Sodium Level 136 mmol/L (136-145) Potassium Level 4.1 mmol/L (3.5-5.1) Chloride Level 102 mmol/L (98-107) Carbon Dioxide Level 25 mmol/L (21-32) Anion Gap 9 (6-14) Blood Urea Nitrogen 20 mg/dL (7-20) Creatinine 1.0 mg/dL (0.6-1.0) Estimated GFR (Cockcroft-Gault) 55.1 Glucose Level 211 mg/dL (70-99) Calcium Level 8.7 mg/dL (8.5-10.1) Test 03/28/17 07:16 03/28/17 11:38 Glucose (Fingerstick) 189 mg/dL (70-99) 216 mg/dL (70-99) Laboratory Tests Test 03/27/17 16:36 03/27/17 20:29 03/28/17 07:00 03/28/17 07:16 Glucose (Fingerstick) 205 mg/dL (70-99) 169 mg/dL (70-99) 189 mg/dL (70-99) White Blood Count 12.5 x10^3/uL (4.0-11.0) Red Blood Count 4.71 x10^6/uL (3.50-5.40) Hemoglobin 14.3 g/dL (12.0-15.5) Hematocrit 43.6 % (36.0-47.0) Mean Corpuscular Volume 92 fL (79-100) Mean Corpuscular Hemoglobin 30 pg (25-35) Mean Corpuscular Hemoglobin Concent 33 g/dL (31-37) Red Cell Distribution Width 12.7 % (11.5-14.5) Platelet Count 193 x10^3/uL (140-400) Neutrophils (%) (Auto) 78 % (31-73) Lymphocytes (%) (Auto) 13 % (24-48) Monocytes (%) (Auto) 6 % (0-9) Eosinophils (%) (Auto) 3 % (0-3) Basophils (%) (Auto) 1 % (0-3) Neutrophils # (Auto) 9.8 x10^3uL (1.8-7.7) Lymphocytes # (Auto) 1.6 x10^3/uL (1.0-4.8) Monocytes # (Auto) 0.7 x10^3/uL (0.0-1.1) Eosinophils # (Auto) 0.4 x10^3/uL (0.0-0.7) Basophils # (Auto) 0.1 x10^3/uL (0.0-0.2) Sodium Level 136 mmol/L (136-145) Potassium Level 4.1 mmol/L (3.5-5.1) Chloride Level 102 mmol/L (98-107) Carbon Dioxide Level 25 mmol/L (21-32) Anion Gap 9 (6-14) Blood Urea Nitrogen 20 mg/dL (7-20) Creatinine 1.0 mg/dL (0.6-1.0) Estimated GFR (Cockcroft-Gault) 55.1 Glucose Level 211 mg/dL (70-99) Calcium Level 8.7 mg/dL (8.5-10.1) Test 03/28/17 11:38 Glucose (Fingerstick) 216 mg/dL (70-99) Medications Current Medications Insulin Aspart (NovoLOG) 0-5 UNITS TIDWMEALS SQ Last administered on 03/26/17t 17:43; Start 03/24/17 at 17:00 Dextrose (Dextrose 50%-Water Syringe) 12.5 gm PRN Q15MIN PRN IV SEE COMMENTS; Start 03/24/17 at 12:30 Ceftriaxone Sodium 50 ml @ 100 mls/hr 1X ONCE IV Last administered on 13:33; Start 03/24/17 at 13:30; Stop 03/24/17 at 13:59; Status DC Ceftriaxone Sodium 1 gm/ Sodium Chloride 50 ml @ 100 mls/hr Q24H IV Last administered on 03/27/17 14:16; Start 03/25/17 at 14:00 Ondansetron HCl (Zofran) 4 mg PRN Q8HRS PRN IV NAUSEA/VOMITING; Start 03/24/17 at 13:30; Stop 03/25/17 at 13:29; Status DC Sodium Chloride 1,000 ml @ 125 mls/hr Q8H IV Last administered on 03/24/17 13 :37; Start 03/24/17 at 13:45; Stop 03/25/17 at 08:53; Status DC Aspirin (Aspirin) 300 mg 1X ONCE [place] Last administered on 03/24/17 13:45; Start 03/24/17 at 13:45; Stop 03/24/17 at 13:46; Status DC Sodium Chloride (Normal Saline Flush) 3 ml QSHIFT PRN IV AFTER MEDS AND BLOOD DRAWS; Start 03/24/17 at 13:45 Sodium Chloride 1,000 ml @ 100 mls/hr Q10H IV Last administered on 03/25/17 01:22; Start 03/24/17 at 14:00; Stop 03/25/17 at 08:53; Status DC Aspirin (Ecotrin) 325 mg DAILYWBKFT PO ; Start 03/25/17 at 08:00 Atorvastatin Calcium (Lipitor) 20 mg QHS PO ; Start 03/24/17 at 21:00 Labetalol HCl (Normodyne) 10 mg PRN Q10MIN PRN IV HYPERTENSION, SEE COMMENTS Last administered on 03/25/17 20:08; Start 03/24/17 at 13:45 Acetaminophen (Tylenol) 650 mg PRN Q6HRS PRN PO FEVER; Start 03/24/17 at 13:45 Acetaminophen (Acetaminophen Supp) 650 mg PRN Q6HRS PRN [place] FEVER Last administered on 03/27/17 21:26; Start 03/24/17 at 13:45 Enoxaparin Sodium (Lovenox 40mg Syringe) 40 mg Q24H SQ Last administered on 15:24; Start 03/24/17 at 15:00 Iohexol (Omnipaque 350 Mg/ml) 60 ml 1X ONCE IV Last administered on 03/24/17 16:25; Start 03/24/17 at 16:15; Stop 03/24/17 at 16:20; Status DC Info (Do NOT chart on this entry -- for MONITORING) 1 each PRN DAILY PRN MC SEE COMMENTS; Start 03/24/17 at 16:30; Stop 03/26/17 at 16:29; Status DC Ondansetron HCl (Zofran) 4 mg PRN Q6HRS PRN IV NAUSEA/VOMITING; Start 03/24/17 at 16:30 Amino Acids/ Glycerin/ Electrolytes 1,000 ml @ 80 mls/hr [id number] IV Last administered on 03/28/17 12:14; Start 03/25/17 at 09:30 Barium Sulfate (Varibar Thin Liquid Apple) 148 gm 1X ONCE PO Last administered on 03/26/17 13:30; Start 03/26/17 at 13:30; Stop 03/26/17 at 13:31 ; Status DC Ringer's Solution 1,000 ml @ 50 mls/hr Q20H IV ; Start 03/29/17 at 07:00; Stop 03/29/17 at 18:59 Diphenhydramine HCl (Benadryl) 25 mg PRN Q6HRS PRN IVP ITCHING Last administered on 03/27/17 07:44; Start 03/26/17 at 23:00 Potassium Chloride 50 ml @ 50 mls/hr Q1H IV ; Start 03/27/17 at 13:00; Stop at 14:59; Status UNV Potassium Chloride 100 ml @ 100 mls/hr Q1H IV Last administered on 03/27/17 19:45; Start 03/27/17 at 13:00; Stop 03/27/17 at 16:59; Status DC Active Scripts Active Reported Atorvastatin Calcium 40 Mg Tablet 1 Tab PO DAILY Losartan Potassium 100 Mg Tablet 100 Mg PO DAILY Aspir 81 (Aspirin) 81 Mg Tablet. 1 Tab PO DAILY Vitals/I & O Vital Sign - Last 24 Hours 03/27/17 03/27/17 03/27/17 03/28/17 15:00 19:10 20:05 03:10 Temp 98.6 98.5 98.4 98.6 98.5 98.4 Pulse 61 81 69 Resp 18 18 18 B/P (MAP) 135/56 (82) 167/89 (115) 124/53 (76) Pulse Ox 97 94 91 O2 Delivery Room Air Room Air Room Air Room Air 03/28/17 03/28/17 03/28/17 07:00 08:00 11:00 Temp 99.2 98.9 99.2 98.9 Pulse 69 73 Resp 18 20 B/P (MAP) 137/62 (87) 132/54 (80) Pulse Ox 94 100 O2 Delivery Room Air Room Air Room Air Intake and Output 03/27/17 03/27/17 03/28/17 15:00 23:00 07:00 Intake Total 0 ml 0 ml Balance 0 ml 0 ml ETIENNE TRAORE MD Mar 28, 2017 14:42
[2017-03-28 15:00] VITALS: BP 157/69
[2017-03-28] MEDS: ENOXAPARIN 40 MG/0.4 ML SYRINGE. SQ SCH (15:26)
[2017-03-28 19:05] VITALS: BP 163/69
[2017-03-28] MEDS: ATORVASTATIN CALCIUM 20 MG TABLET PO SCH (19:23)
[2017-03-28] MEDS: ACETAMINOPHEN 650 MG SUPP.RECT. PR PRN (21:42)
[2017-03-28 23:05] VITALS: BP 118/62
[2017-03-29] VITALS (12 sets, daily range): BP systolic 107–182; BP diastolic 54–82
[2017-03-29 04:52] LABS: CALCIUM 8.9 mg/dL (8.5-10.1); CREATININE 0.9 mg/dL (0.6-1.0); GFR 62.3; POTASSIUM 4.1 mmol/L (3.5-5.1)
[2017-03-29 05:25] LABS: BASO # 0.1 x10^3/uL (0.0-0.2); BASO % 1 % (0-3); EOS % 4 % (0-3); HEMATOCRIT 42.1 % (36.0-47.0); HEMOGLOBIN 14.4 g/dL (12.0-15.5); LYMPH % 10 % (24-48); MEAN CORPUSCULAR HEMOGLOBIN 31 pg (25-35); MEAN CORPUSCULAR HGB CONC 34 g/dL (31-37); MEAN CORPUSCULAR VOLUME 91 fL (79-100); MONO % 8 % (0-9); NEUT % 77 % (31-73); PLATELET COUNT 213 x10^3/uL (140-400); RED BLOOD COUNT 4.63 x10^6/uL (3.50-5.40); RED CELL DISTRIBUTION WIDTH 12.8 % (11.5-14.5)
[2017-03-29] MEDS ORDERED: IV RINGERS,LACTATED 1000ML 1,000 ML IV SCH ×3 (07:00→13:00)
[2017-03-29] MEDS: ASPIRIN ENTERIC COATED 325 MG TABLET.DR. PO SCH (07:20)
[2017-03-29] MEDS: INSULIN ASPART 300 UNITS/3 ML INSULN.PEN SQ SCH ×3 (07:47→17:00)
--- NOTE | 2017-03-29 08:45 | PDOC ---
Subjective: Subjective: Granddaughter Xochitl in room - says her mother, the pt's daughter - Deirdre, is back in [place] but wishes to proceed w/ PEG. Not sure what a DPOA is. Objective: Objective: RN called this morning - no consents signed. Videoswallow as below, RN also reports failed bedside swallow evals over the weekend. Vital Signs: Vital Signs Date Time Temp Pulse Resp B/P (MAP) Pulse Ox O2 Delivery O2 Flow Rate FiO2 03/29/17 07:33 Room Air 03/29/17 07:12 97.9 65 20 116/56 (76) 93 97.9 Labs: Laboratory Tests Test 03/28/17 11:38 03/28/17 16:49 03/28/17 21:10 03/29/17 03:00 Glucose (Fingerstick) 216 mg/dL 196 mg/dL 206 mg/dL White Blood Count 10.0 x10^3/uL Red Blood Count 4.63 x10^6/uL Hemoglobin 14.4 g/dL Hematocrit 42.1 % Mean Corpuscular Volume 91 fL Mean Corpuscular Hemoglobin 31 pg Mean Corpuscular Hemoglobin Concent 34 g/dL Red Cell Distribution Width 12.8 % Platelet Count 213 x10^3/uL Neutrophils (%) (Auto) 77 % Lymphocytes (%) (Auto) 10 % Monocytes (%) (Auto) 8 % Eosinophils (%) (Auto) 4 % Basophils (%) (Auto) 1 % Neutrophils # (Auto) 7.8 x10^3uL Lymphocytes # (Auto) 1.0 x10^3/uL Monocytes # (Auto) 0.8 x10^3/uL Eosinophils # (Auto) 0.4 x10^3/uL Basophils # (Auto) 0.1 x10^3/uL Sodium Level 135 mmol/L Potassium Level 4.1 mmol/L Chloride Level 101 mmol/L Carbon Dioxide Level 24 mmol/L Anion Gap 10 Blood Urea Nitrogen 24 mg/dL Creatinine 0.9 mg/dL Estimated GFR (Cockcroft-Gault) 62.3 Glucose Level 198 mg/dL Calcium Level 8.9 mg/dL Test 03/29/17 07:45 Glucose (Fingerstick) 206 mg/dL Imaging: Initial Videoswallow Study Report Videoswallow completed earlier this date. Pt w/prolonged oral holding and altered alertness inconsistently during eval. Swallow across consistencies was delayed orally and represented a risk of aspiration as evidenced by deep penetration before swallow w/tsp honey thick bolus. Similar results were noted w /thin liquids w/bolus holding and penetration before swallow at least x1. Puree bolus was held for >20-30 sec prior to swallow but when swallowed, was w/ o penetration. IMPRESSIONS: Altered alertness level increases risk of aspiration as pt holds the bolus for prolonged periods of time, and was witnessed to experience penetration r/t same. If alertness and timing of swallow improve, it is foreseeable that pt could start a puree diet w/honey thick liquids. She will need to demo more immediate swallow orally before this can be initiated. If alertness does not improve, pt will con't to require non-oral nutrition, potentially long-term non-oral. If po diet is initiated, will need to observe for % po intake to determine if supplemental oral or non-oral nutrition may be needed. RECOMMENDATIONS: NPO until alertness level and timing of swallow improve and pt is ok'd by speech path to start po. PE: GEN: NAD LUNGS: clear HEART: RRR ABD: S/ND/NT NEURO/PSYCH: awake, drowsy A/P: CVA, dysphagia -- I called 2 numbers in attempt to reach Deirdre - no answer or opportunity to leave a voicemail. Eventually, Xochitl was able to reach Deirdre from her cell phone. I spoke w/ her, we again discussed PEG tube procedure/risks. She would like to proceed. Phone passed to DEVI Jiménez to obtain consent over the phone for PEG placement at 1: 30 p.m. Updated GI lab and Dr. Strickland. JOSE MANDEL Mar 29, 2017 08:45
[2017-03-29] MEDS: AMINO AC 3%/ELECTROLYTE/GLYCER 1,000 ML IV SCH (09:54)
[2017-03-29] MEDS: diphenhydrAMINE 50 MG/ML VIAL IVP PRN (09:54)
--- NOTE | 2017-03-29 10:02 | PDOC ---
PROGRESS NOTES Assessment Problems Medical Problems: (1) CVA (cerebral vascular accident) Status: Acute Strokes related to right carotid artery occlusion, not a total carotid- distribution infarct on today's head CT Also has left vertebral artery occlusion Left carotid artery is patent Hyperlipidemia Dysphagia persists Plan Heparin is not helpful in this situation Rehabilitation modalities ProcalAmine PEG tube today Permissive hypertension, current blood pressure parameters. Aspirin and Statin after PEG placed Subjective Pain is better Objective Vital Signs Date Time Temp Pulse Resp B/P (MAP) Pulse Ox O2 Delivery O2 Flow Rate FiO2 03/29/17 07:33 Room Air 03/29/17 07:12 97.9 65 20 116/56 (76) 93 97.9 Intake and Output 03/29/17 06:59 Intake Total 0 ml Balance 0 ml Intake Oral 0 ml # Voids 7 PHYSICAL EXAM Eyes open. Oriented to person. PERRL. EOMI. CN: Left field cut, left central facial weakness Muscle tone: normal. Muscle strength: 3/5 on left DTR: 2+ Plantar reflex: Flexor on right, extensor on left Gait: not examined in bed. Sensory exam: Left hemisensory loss No cerebellar signs elicited, out of proportion to the weakness. Review of Relevant I have reviewed the following items tamie (where applicable) has been applied. Labs Laboratory Tests Test 03/27/17 11:30 03/27/17 16:36 03/27/17 20:29 03/28/17 07:00 Glucose (Fingerstick) 185 mg/dL (70-99) 205 mg/dL (70-99) 169 mg/dL (70-99) White Blood Count 12.5 x10^3/uL (4.0-11.0) Red Blood Count 4.71 x10^6/uL (3.50-5.40) Hemoglobin 14.3 g/dL (12.0-15.5) Hematocrit 43.6 % (36.0-47.0) Mean Corpuscular Volume 92 fL (79-100) Mean Corpuscular Hemoglobin 30 pg (25-35) Mean Corpuscular Hemoglobin Concent 33 g/dL (31-37) Red Cell Distribution Width 12.7 % (11.5-14.5) Platelet Count 193 x10^3/uL (140-400) Neutrophils (%) (Auto) 78 % (31-73) Lymphocytes (%) (Auto) 13 % (24-48) Monocytes (%) (Auto) 6 % (0-9) Eosinophils (%) (Auto) 3 % (0-3) Basophils (%) (Auto) 1 % (0-3) Neutrophils # (Auto) 9.8 x10^3uL (1.8-7.7) Lymphocytes # (Auto) 1.6 x10^3/uL (1.0-4.8) Monocytes # (Auto) 0.7 x10^3/uL (0.0-1.1) Eosinophils # (Auto) 0.4 x10^3/uL (0.0-0.7) Basophils # (Auto) 0.1 x10^3/uL (0.0-0.2) Sodium Level 136 mmol/L (136-145) Potassium Level 4.1 mmol/L (3.5-5.1) Chloride Level 102 mmol/L (98-107) Carbon Dioxide Level 25 mmol/L (21-32) Anion Gap 9 (6-14) Blood Urea Nitrogen 20 mg/dL (7-20) Creatinine 1.0 mg/dL (0.6-1.0) Estimated GFR (Cockcroft-Gault) 55.1 Glucose Level 211 mg/dL (70-99) Calcium Level 8.7 mg/dL (8.5-10.1) Test 03/28/17 07:16 03/28/17 11:38 03/28/17 16:49 03/28/17 21:10 Glucose (Fingerstick) 189 mg/dL (70-99) 216 mg/dL (70-99) 196 mg/dL (70-99) 206 mg/dL (70-99) Test 03/29/17 03:00 03/29/17 07:45 White Blood Count 10.0 x10^3/uL (4.0-11.0) Red Blood Count 4.63 x10^6/uL (3.50-5.40) Hemoglobin 14.4 g/dL (12.0-15.5) Hematocrit 42.1 % (36.0-47.0) Mean Corpuscular Volume 91 fL (79-100) Mean Corpuscular Hemoglobin 31 pg (25-35) Mean Corpuscular Hemoglobin Concent 34 g/dL (31-37) Red Cell Distribution Width 12.8 % (11.5-14.5) Platelet Count 213 x10^3/uL (140-400) Neutrophils (%) (Auto) 77 % (31-73) Lymphocytes (%) (Auto) 10 % (24-48) Monocytes (%) (Auto) 8 % (0-9) Eosinophils (%) (Auto) 4 % (0-3) Basophils (%) (Auto) 1 % (0-3) Neutrophils # (Auto) 7.8 x10^3uL (1.8-7.7) Lymphocytes # (Auto) 1.0 x10^3/uL (1.0-4.8) Monocytes # (Auto) 0.8 x10^3/uL (0.0-1.1) Eosinophils # (Auto) 0.4 x10^3/uL (0.0-0.7) Basophils # (Auto) 0.1 x10^3/uL (0.0-0.2) Sodium Level 135 mmol/L (136-145) Potassium Level 4.1 mmol/L (3.5-5.1) Chloride Level 101 mmol/L (98-107) Carbon Dioxide Level 24 mmol/L (21-32) Anion Gap 10 (6-14) Blood Urea Nitrogen 24 mg/dL (7-20) Creatinine 0.9 mg/dL (0.6-1.0) Estimated GFR (Cockcroft-Gault) 62.3 Glucose Level 198 mg/dL (70-99) Calcium Level 8.9 mg/dL (8.5-10.1) Glucose (Fingerstick) 206 mg/dL (70-99) Laboratory Tests Test 03/28/17 11:38 03/28/17 16:49 03/28/17 21:10 03/29/17 03:00 Glucose (Fingerstick) 216 mg/dL (70-99) 196 mg/dL (70-99) 206 mg/dL (70-99) White Blood Count 10.0 x10^3/uL (4.0-11.0) Red Blood Count 4.63 x10^6/uL (3.50-5.40) Hemoglobin 14.4 g/dL (12.0-15.5) Hematocrit 42.1 % (36.0-47.0) Mean Corpuscular Volume 91 fL (79-100) Mean Corpuscular Hemoglobin 31 pg (25-35) Mean Corpuscular Hemoglobin Concent 34 g/dL (31-37) Red Cell Distribution Width 12.8 % (11.5-14.5) Platelet Count 213 x10^3/uL (140-400) Neutrophils (%) (Auto) 77 % (31-73) Lymphocytes (%) (Auto) 10 % (24-48) Monocytes (%) (Auto) 8 % (0-9) Eosinophils (%) (Auto) 4 % (0-3) Basophils (%) (Auto) 1 % (0-3) Neutrophils # (Auto) 7.8 x10^3uL (1.8-7.7) Lymphocytes # (Auto) 1.0 x10^3/uL (1.0-4.8) Monocytes # (Auto) 0.8 x10^3/uL (0.0-1.1) Eosinophils # (Auto) 0.4 x10^3/uL (0.0-0.7) Basophils # (Auto) 0.1 x10^3/uL (0.0-0.2) Sodium Level 135 mmol/L (136-145) Potassium Level 4.1 mmol/L (3.5-5.1) Chloride Level 101 mmol/L (98-107) Carbon Dioxide Level 24 mmol/L (21-32) Anion Gap 10 (6-14) Blood Urea Nitrogen 24 mg/dL (7-20) Creatinine 0.9 mg/dL (0.6-1.0) Estimated GFR (Cockcroft-Gault) 62.3 Glucose Level 198 mg/dL (70-99) Calcium Level 8.9 mg/dL (8.5-10.1) Test 03/29/17 07:45 Glucose (Fingerstick) 206 mg/dL (70-99) Medications Current Medications Insulin Aspart (NovoLOG) 0-5 UNITS TIDWMEALS SQ Last administered on 03/26/17t 17:43; Start 03/24/17 at 17:00 Dextrose (Dextrose 50%-Water Syringe) 12.5 gm PRN Q15MIN PRN IV SEE COMMENTS; Start 03/24/17 at 12:30 Ceftriaxone Sodium 50 ml @ 100 mls/hr 1X ONCE IV Last administered on 13:33; Start 03/24/17 at 13:30; Stop 03/24/17 at 13:59; Status DC Ceftriaxone Sodium 1 gm/ Sodium Chloride 50 ml @ 100 mls/hr Q24H IV Last administered on 03/28/17 15:24; Start 03/25/17 at 14:00 Ondansetron HCl (Zofran) 4 mg PRN Q8HRS PRN IV NAUSEA/VOMITING; Start 03/24/17 at 13:30; Stop 03/25/17 at 13:29; Status DC Sodium Chloride 1,000 ml @ 125 mls/hr Q8H IV Last administered on 03/24/17 13 :37; Start 03/24/17 at 13:45; Stop 03/25/17 at 08:53; Status DC Aspirin (Aspirin) 300 mg 1X ONCE MA Last administered on 03/24/17 13:45; Start 03/24/17 at 13:45; Stop 03/24/17 at 13:46; Status DC Sodium Chloride (Normal Saline Flush) 3 ml QSHIFT PRN IV AFTER MEDS AND BLOOD DRAWS; Start 03/24/17 at 13:45 Sodium Chloride 1,000 ml @ 100 mls/hr Q10H IV Last administered on 03/25/17 01:22; Start 03/24/17 at 14:00; Stop 03/25/17 at 08:53; Status DC Aspirin (Ecotrin) 325 mg DAILYWBKFT PO ; Start 03/25/17 at 08:00 Atorvastatin Calcium (Lipitor) 20 mg QHS PO ; Start 03/24/17 at 21:00 Labetalol HCl (Normodyne) 10 mg PRN Q10MIN PRN IV HYPERTENSION, SEE COMMENTS Last administered on 03/25/17 20:08; Start 03/24/17 at 13:45 Acetaminophen (Tylenol) 650 mg PRN Q6HRS PRN PO FEVER; Start 03/24/17 at 13:45 Acetaminophen (Acetaminophen Supp) 650 mg PRN Q6HRS PRN MA FEVER Last administered on 03/28/17 21:42; Start 03/24/17 at 13:45 Enoxaparin Sodium (Lovenox 40mg Syringe) 40 mg Q24H SQ Last administered on 15:26; Start 03/24/17 at 15:00; Stop 03/29/17 at 08:44; Status DC Iohexol (Omnipaque 350 Mg/ml) 60 ml 1X ONCE IV Last administered on 03/24/17 16:25; Start 03/24/17 at 16:15; Stop 03/24/17 at 16:20; Status DC Info (Do NOT chart on this entry -- for MONITORING) 1 each PRN DAILY PRN MC SEE COMMENTS; Start 03/24/17 at 16:30; Stop 03/26/17 at 16:29; Status DC Ondansetron HCl (Zofran) 4 mg PRN Q6HRS PRN IV NAUSEA/VOMITING; Start 03/24/17 at 16:30 Amino Acids/ Glycerin/ Electrolytes 1,000 ml @ 80 mls/hr [id number] IV Last administered on 03/29/17 09:54; Start 03/25/17 at 09:30 Barium Sulfate (Varibar Thin Liquid Apple) 148 gm 1X ONCE PO Last administered on 03/26/17 13:30; Start 03/26/17 at 13:30; Stop 03/26/17 at 13:31 ; Status DC Ringer's Solution 1,000 ml @ 50 mls/hr Q20H IV ; Start 03/29/17 at 07:00; Stop 03/29/17 at 07:28; Status DC Diphenhydramine HCl (Benadryl) 25 mg PRN Q6HRS PRN IVP ITCHING Last administered on 03/29/17 09:54; Start 03/26/17 at 23:00 Potassium Chloride 50 ml @ 50 mls/hr Q1H IV ; Start 03/27/17 at 13:00; Stop at 14:59; Status UNV Potassium Chloride 100 ml @ 100 mls/hr Q1H IV Last administered on 03/27/17 19:45; Start 03/27/17 at 13:00; Stop 03/27/17 at 16:59; Status DC Ringer's Solution 1,000 ml @ 50 mls/hr Q20H IV ; Start 03/29/17 at 13:00 Active Scripts Active Reported Atorvastatin Calcium 40 Mg Tablet 1 Tab PO DAILY Losartan Potassium 100 Mg Tablet 100 Mg PO DAILY Aspir 81 (Aspirin) 81 Mg Tablet. 1 Tab PO DAILY Vitals/I & O Vital Sign - Last 24 Hours 03/28/17 03/28/17 03/28/17 03/28/17 11:00 15:00 19:05 19:37 Temp 98.9 99.1 98.9 98.9 99.1 98.9 Pulse 73 75 84 Resp 20 20 20 B/P (MAP) 132/54 (80) 157/69 (98) 163/69 (100) Pulse Ox 100 95 92 O2 Delivery Room Air Room Air Room Air Room Air 03/28/17 03/29/17 03/29/17 03/29/17 23:05 03:05 07:12 07:33 Temp 98.6 98.2 97.9 98.6 98.2 97.9 Pulse 72 68 65 Resp 20 20 20 B/P (MAP) 118/62 (80) 141/82 (101) 116/56 (76) Pulse Ox 91 92 93 O2 Delivery Room Air Room Air Room Air Room Air Intake and Output 03/28/17 03/28/17 03/29/17 14:59 22:59 06:59 Intake Total 0 ml 0 ml Balance 0 ml 0 ml ETIENNE TRAORE MD Mar 29, 2017 10:02
[2017-03-29] MEDS ORDERED: fentaNYL PF VIAL 100 MCG/2 ML VIAL IV PRN ×2 (12:15)
[2017-03-29] MEDS ORDERED: LIDOCAINE 1% 1 ML SYRINGE. ID PRN (12:15)
[2017-03-29] MEDS ORDERED: MIDAZOLAM HCL/PF 2 MG/2 ML VIAL. IV PRN (12:15)
[2017-03-29] MEDS ORDERED: PROPOFOL 20 ML IV ONE (12:29)
--- NOTE | 2017-03-29 12:42 | PDOC ---
PROGRESS NOTES Chief Complaint Chief Complaint CVA with left sided weakness PMH: hld htn Type 2 DM - uncontrolled Obesity Not compliant with meds History of Present Illness History of Present Illness Pt speaks chukese, granddaughter at bedside and helping translate. Pt is laying in bed. GI placing PEG tube today, failed bedside swallows over the weekend. Vitals Vitals Vital Signs Date Time Temp Pulse Resp B/P (MAP) Pulse Ox O2 Delivery O2 Flow Rate FiO2 03/29/17 11:16 97.9 57 20 149/59 (89) 96 Room Air 97.9 Physical Exam General: Cooperative, Other (arousable and following commands) Heart: Regular rate Lungs: Clear Abdomen: Soft, No tenderness Extremities: No clubbing, No cyanosis, No edema, Other (left arm paralyzed) Skin: No rashes, No breakdown Labs LABS Laboratory Tests Test 03/28/17 16:49 03/28/17 21:10 03/29/17 03:00 03/29/17 07:45 Glucose (Fingerstick) 196 mg/dL (70-99) 206 mg/dL (70-99) 206 mg/dL (70-99) White Blood Count 10.0 x10^3/uL (4.0-11.0) Red Blood Count 4.63 x10^6/uL (3.50-5.40) Hemoglobin 14.4 g/dL (12.0-15.5) Hematocrit 42.1 % (36.0-47.0) Mean Corpuscular Volume 91 fL (79-100) Mean Corpuscular Hemoglobin 31 pg (25-35) Mean Corpuscular Hemoglobin Concent 34 g/dL (31-37) Red Cell Distribution Width 12.8 % (11.5-14.5) Platelet Count 213 x10^3/uL (140-400) Neutrophils (%) (Auto) 77 % (31-73) Lymphocytes (%) (Auto) 10 % (24-48) Monocytes (%) (Auto) 8 % (0-9) Eosinophils (%) (Auto) 4 % (0-3) Basophils (%) (Auto) 1 % (0-3) Neutrophils # (Auto) 7.8 x10^3uL (1.8-7.7) Lymphocytes # (Auto) 1.0 x10^3/uL (1.0-4.8) Monocytes # (Auto) 0.8 x10^3/uL (0.0-1.1) Eosinophils # (Auto) 0.4 x10^3/uL (0.0-0.7) Basophils # (Auto) 0.1 x10^3/uL (0.0-0.2) Sodium Level 135 mmol/L (136-145) Potassium Level 4.1 mmol/L (3.5-5.1) Chloride Level 101 mmol/L (98-107) Carbon Dioxide Level 24 mmol/L (21-32) Anion Gap 10 (6-14) Blood Urea Nitrogen 24 mg/dL (7-20) Creatinine 0.9 mg/dL (0.6-1.0) Estimated GFR (Cockcroft-Gault) 62.3 Glucose Level 198 mg/dL (70-99) Calcium Level 8.9 mg/dL (8.5-10.1) Test 03/29/17 11:28 Glucose (Fingerstick) 192 mg/dL (70-99) Review of Systems Review of Systems abdominal pain left arm paralysis Assessment and Plan Assessmemt and Plan Problems Medical Problems: (1) CVA (cerebral vascular accident) Status: Acute Ischemic stroke Dysphagia 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 Consulting Palliative care for fdc goals of care 2. Abdominal pain - will ask GI to evaluate further. 3. PEG tube placement today, failed bedside swallows over the weekend 4. Per neurology start aspirin and statin after PEG placed. 5. Consulting dietary for PEG rate goal 6.Continue procalamine IV 7. Right carotid artery occlusion - no indication for surgery per Dr. Cordero 8. Continue PT/OT 9. Continue ceftriaxone for UTI 10. Continue DVT prophylaxis - lovenox 11. Recheck labs - CBC, BMP 12. Continue home meds 13. Appreciate subspecialty input Problems: Comment Review of Relevant I have reviewed the following items tamie (where applicable) has been applied. Labs Laboratory Tests Test 03/27/17 16:36 03/27/17 20:29 03/28/17 07:00 03/28/17 07:16 Glucose (Fingerstick) 205 mg/dL (70-99) 169 mg/dL (70-99) 189 mg/dL (70-99) White Blood Count 12.5 x10^3/uL (4.0-11.0) Red Blood Count 4.71 x10^6/uL (3.50-5.40) Hemoglobin 14.3 g/dL (12.0-15.5) Hematocrit 43.6 % (36.0-47.0) Mean Corpuscular Volume 92 fL (79-100) Mean Corpuscular Hemoglobin 30 pg (25-35) Mean Corpuscular Hemoglobin Concent 33 g/dL (31-37) Red Cell Distribution Width 12.7 % (11.5-14.5) Platelet Count 193 x10^3/uL (140-400) Neutrophils (%) (Auto) 78 % (31-73) Lymphocytes (%) (Auto) 13 % (24-48) Monocytes (%) (Auto) 6 % (0-9) Eosinophils (%) (Auto) 3 % (0-3) Basophils (%) (Auto) 1 % (0-3) Neutrophils # (Auto) 9.8 x10^3uL (1.8-7.7) Lymphocytes # (Auto) 1.6 x10^3/uL (1.0-4.8) Monocytes # (Auto) 0.7 x10^3/uL (0.0-1.1) Eosinophils # (Auto) 0.4 x10^3/uL (0.0-0.7) Basophils # (Auto) 0.1 x10^3/uL (0.0-0.2) Sodium Level 136 mmol/L (136-145) Potassium Level 4.1 mmol/L (3.5-5.1) Chloride Level 102 mmol/L (98-107) Carbon Dioxide Level 25 mmol/L (21-32) Anion Gap 9 (6-14) Blood Urea Nitrogen 20 mg/dL (7-20) Creatinine 1.0 mg/dL (0.6-1.0) Estimated GFR (Cockcroft-Gault) 55.1 Glucose Level 211 mg/dL (70-99) Calcium Level 8.7 mg/dL (8.5-10.1) Test 03/28/17 11:38 03/28/17 16:49 03/28/17 21:10 03/29/17 03:00 Glucose (Fingerstick) 216 mg/dL (70-99) 196 mg/dL (70-99) 206 mg/dL (70-99) White Blood Count 10.0 x10^3/uL (4.0-11.0) Red Blood Count 4.63 x10^6/uL (3.50-5.40) Hemoglobin 14.4 g/dL (12.0-15.5) Hematocrit 42.1 % (36.0-47.0) Mean Corpuscular Volume 91 fL (79-100) Mean Corpuscular Hemoglobin 31 pg (25-35) Mean Corpuscular Hemoglobin Concent 34 g/dL (31-37) Red Cell Distribution Width 12.8 % (11.5-14.5) Platelet Count 213 x10^3/uL (140-400) Neutrophils (%) (Auto) 77 % (31-73) Lymphocytes (%) (Auto) 10 % (24-48) Monocytes (%) (Auto) 8 % (0-9) Eosinophils (%) (Auto) 4 % (0-3) Basophils (%) (Auto) 1 % (0-3) Neutrophils # (Auto) 7.8 x10^3uL (1.8-7.7) Lymphocytes # (Auto) 1.0 x10^3/uL (1.0-4.8) Monocytes # (Auto) 0.8 x10^3/uL (0.0-1.1) Eosinophils # (Auto) 0.4 x10^3/uL (0.0-0.7) Basophils # (Auto) 0.1 x10^3/uL (0.0-0.2) Sodium Level 135 mmol/L (136-145) Potassium Level 4.1 mmol/L (3.5-5.1) Chloride Level 101 mmol/L (98-107) Carbon Dioxide Level 24 mmol/L (21-32) Anion Gap 10 (6-14) Blood Urea Nitrogen 24 mg/dL (7-20) Creatinine 0.9 mg/dL (0.6-1.0) Estimated GFR (Cockcroft-Gault) 62.3 Glucose Level 198 mg/dL (70-99) Calcium Level 8.9 mg/dL (8.5-10.1) Test 03/29/17 07:45 03/29/17 11:28 Glucose (Fingerstick) 206 mg/dL (70-99) 192 mg/dL (70-99) Laboratory Tests Test 03/28/17 16:49 03/28/17 21:10 03/29/17 03:00 03/29/17 07:45 Glucose (Fingerstick) 196 mg/dL (70-99) 206 mg/dL (70-99) 206 mg/dL (70-99) White Blood Count 10.0 x10^3/uL (4.0-11.0) Red Blood Count 4.63 x10^6/uL (3.50-5.40) Hemoglobin 14.4 g/dL (12.0-15.5) Hematocrit 42.1 % (36.0-47.0) Mean Corpuscular Volume 91 fL (79-100) Mean Corpuscular Hemoglobin 31 pg (25-35) Mean Corpuscular Hemoglobin Concent 34 g/dL (31-37) Red Cell Distribution Width 12.8 % (11.5-14.5) Platelet Count 213 x10^3/uL (140-400) Neutrophils (%) (Auto) 77 % (31-73) Lymphocytes (%) (Auto) 10 % (24-48) Monocytes (%) (Auto) 8 % (0-9) Eosinophils (%) (Auto) 4 % (0-3) Basophils (%) (Auto) 1 % (0-3) Neutrophils # (Auto) 7.8 x10^3uL (1.8-7.7) Lymphocytes # (Auto) 1.0 x10^3/uL (1.0-4.8) Monocytes # (Auto) 0.8 x10^3/uL (0.0-1.1) Eosinophils # (Auto) 0.4 x10^3/uL (0.0-0.7) Basophils # (Auto) 0.1 x10^3/uL (0.0-0.2) Sodium Level 135 mmol/L (136-145) Potassium Level 4.1 mmol/L (3.5-5.1) Chloride Level 101 mmol/L (98-107) Carbon Dioxide Level 24 mmol/L (21-32) Anion Gap 10 (6-14) Blood Urea Nitrogen 24 mg/dL (7-20) Creatinine 0.9 mg/dL (0.6-1.0) Estimated GFR (Cockcroft-Gault) 62.3 Glucose Level 198 mg/dL (70-99) Calcium Level 8.9 mg/dL (8.5-10.1) Test 03/29/17 11:28 Glucose (Fingerstick) 192 mg/dL (70-99) Medications Current Medications Insulin Aspart (NovoLOG) 0-5 UNITS TIDWMEALS SQ Last administered on 03/26/17 17:43; Start 03/24/17 at 17:00 Dextrose (Dextrose 50%-Water Syringe) 12.5 gm PRN Q15MIN PRN IV SEE COMMENTS; Start 03/24/17 at 12:30 Ceftriaxone Sodium 50 ml @ 100 mls/hr 1X ONCE IV Last administered on 13:33; Start 03/24/17 at 13:30; Stop 03/24/17 at 13:59; Status DC Ceftriaxone Sodium 1 gm/ Sodium Chloride 50 ml @ 100 mls/hr Q24H IV Last administered on 03/28/17 15:24; Start 03/25/17 at 14:00 Ondansetron HCl (Zofran) 4 mg PRN Q8HRS PRN IV NAUSEA/VOMITING; Start 03/24/17 at 13:30; Stop 03/25/17 at 13:29; Status DC Sodium Chloride 1,000 ml @ 125 mls/hr Q8H IV Last administered on 03/24/17 13 :37; Start 03/24/17 at 13:45; Stop 03/25/17 at 08:53; Status DC Aspirin (Aspirin) 300 mg 1X ONCE NM Last administered on 03/24/17 13:45; Start 03/24/17 at 13:45; Stop 03/24/17 at 13:46; Status DC Sodium Chloride (Normal Saline Flush) 3 ml QSHIFT PRN IV AFTER MEDS AND BLOOD DRAWS; Start 03/24/17 at 13:45 Sodium Chloride 1,000 ml @ 100 mls/hr Q10H IV Last administered on 03/25/17 01:22; Start 03/24/17 at 14:00; Stop 03/25/17 at 08:53; Status DC Aspirin (Ecotrin) 325 mg DAILYWBKFT PO ; Start 03/25/17 at 08:00 Atorvastatin Calcium (Lipitor) 20 mg QHS PO ; Start 03/24/17 at 21:00 Labetalol HCl (Normodyne) 10 mg PRN Q10MIN PRN IV HYPERTENSION, SEE COMMENTS Last administered on 03/25/17 20:08; Start 03/24/17 at 13:45 Acetaminophen (Tylenol) 650 mg PRN Q6HRS PRN PO FEVER; Start 03/24/17 at 13:45 Acetaminophen (Acetaminophen Supp) 650 mg PRN Q6HRS PRN NM FEVER Last administered on 03/28/17 21:42; Start 03/24/17 at 13:45 Enoxaparin Sodium (Lovenox 40mg Syringe) 40 mg Q24H SQ Last administered on 15:26; Start 03/24/17 at 15:00; Stop 03/29/17 at 08:44; Status DC Iohexol (Omnipaque 350 Mg/ml) 60 ml 1X ONCE IV Last administered on 03/24/17 16:25; Start 03/24/17 at 16:15; Stop 03/24/17 at 16:20; Status DC Info (Do NOT chart on this entry -- for MONITORING) 1 each PRN DAILY PRN MC SEE COMMENTS; Start 03/24/17 at 16:30; Stop 03/26/17 at 16:29; Status DC Ondansetron HCl (Zofran) 4 mg PRN Q6HRS PRN IV NAUSEA/VOMITING; Start 03/24/17 at 16:30 Amino Acids/ Glycerin/ Electrolytes 1,000 ml @ 80 mls/hr [id number] IV Last administered on 03/29/17 09:54; Start 03/25/17 at 09:30 Barium Sulfate (Varibar Thin Liquid Apple) 148 gm 1X ONCE PO Last administered on 03/26/17 13:30; Start 03/26/17 at 13:30; Stop 03/26/17 at 13:31 ; Status DC Ringer's Solution 1,000 ml @ 50 mls/hr Q20H IV ; Start 03/29/17 at 07:00; Stop 03/29/17 at 07:28; Status DC Diphenhydramine HCl (Benadryl) 25 mg PRN Q6HRS PRN IVP ITCHING Last administered on 03/29/17 09:54; Start 03/26/17 at 23:00 Potassium Chloride 50 ml @ 50 mls/hr Q1H IV ; Start 03/27/17 at 13:00; Stop at 14:59; Status UNV Potassium Chloride 100 ml @ 100 mls/hr Q1H IV Last administered on 03/27/17t 19:45; Start 03/27/17 at 13:00; Stop 03/27/17 at 16:59; Status DC Ringer's Solution 1,000 ml @ 50 mls/hr Q20H IV ; Start 03/29/17 at 13:00 Midazolam HCl (Versed) 2 mg PRN 1X PRN IV PRIOR TO PROCEDURE; Start 03/29/17 at 12:15; Stop 03/30/17 at 12:14 Fentanyl Citrate (Fentanyl 2ml Vial) 25 mcg PRN Q5MIN PRN IV X 2 DOSES FOR PAIN ; Start 03/29/17 at 12:15; Stop 03/30/17 at 12:14 Fentanyl Citrate (Fentanyl 2ml Vial) 50 mcg PRN Q5MIN PRN IV X 2 DOSES FOR PAIN ; Start 03/29/17 at 12:15; Stop 03/30/17 at 12:14 Ringer's Solution 1,000 ml @ 125 mls/hr Q8H IV ; Start 03/29/17 at 12:07; Stop 03/30/17 at 00:06 Lidocaine HCl 2 ml 1X PRN PRN ID IV START; Start 03/29/17 at 12:15; Stop at 12:14 Active Scripts Active Reported Atorvastatin Calcium 40 Mg Tablet 1 Tab PO DAILY Losartan Potassium 100 Mg Tablet 100 Mg PO DAILY Aspir 81 (Aspirin) 81 Mg Tablet.dr 1 Tab PO DAILY Vitals/I & O Vital Sign - Last 24 Hours 03/28/17 03/28/17 03/28/17 03/28/17 15:00 19:05 19:37 23:05 Temp 99.1 98.9 98.6 99.1 98.9 98.6 Pulse 75 84 72 Resp 20 20 20 B/P (MAP) 157/69 (98) 163/69 (100) 118/62 (80) Pulse Ox 95 92 91 O2 Delivery Room Air Room Air Room Air Room Air 03/29/17 03/29/17 03/29/17 03/29/17 03:05 07:12 07:33 11:16 Temp 98.2 97.9 97.9 98.2 97.9 97.9 Pulse 68 65 57 Resp 20 20 20 B/P (MAP) 141/82 (101) 116/56 (76) 149/59 (89) Pulse Ox 92 93 96 O2 Delivery Room Air Room Air Room Air Room Air Intake and Output 03/28/17 03/28/17 03/29/17 15:00 23:00 07:00 Intake Total 0 ml 0 ml Balance 0 ml 0 ml CHAGO VERGARA III DO Mar 29, 2017 12:42
--- NOTE | 2017-03-29 13:29 | PDOC4 ---
PROCEDURE Procedure EGD/PEG Indication: neurogenic dysphagia Meds: per anesthesia Findings: E--normal G--normal D--normal to second portion. --20F g-tube placed uneventfully. Brief re-scope confirms against gastric wall. Winsome. well. IMP: successful PEG. REC: Water/meds OK per tube today. Resume Lovenox tomorrow. If no problems, can start feedings in AM. NADYA JOHNSTON MD Mar 29, 2017 13:28
--- NOTE | 2017-03-29 16:11 | PDOC2 ---
PALLIATIVE CARE Palliative Care Note Palliative Care Consult requested by Dr. Lenz to address detention goals of care Patient asleep. Post PEG tube insertion. Diagnosis: CVA. Left arm flacid, left leg weak; Labs reviewed. Spoke with granddaughter--Xochitl; Plan family meeting tomorrow at 11am. EMIL WASHBURN Mar 29, 2017 16:11
[2017-03-29] MEDS: MORPHINE SULFATE 2 MG/ML DISP.SYRIN. IV PRN ×4 (16:20→22:06)
[2017-03-29] MEDS: ATORVASTATIN CALCIUM 20 MG TABLET PO SCH (22:07)
[2017-03-29] MEDS: ACETAMINOPHEN 650 MG/20.3 ML SOLUTION. PEG PRN (22:07)
[2017-03-30] MEDS: AMINO AC 3%/ELECTROLYTE/GLYCER 1,000 ML IV SCH ×2 (00:37→15:19)
[2017-03-30 03:10] VITALS: BP 147/64
[2017-03-30 04:19] LABS: BASO # 0.1 x10^3/uL (0.0-0.2); BASO % 1 % (0-3); EOS % 5 % (0-3); HEMATOCRIT 41.2 % (36.0-47.0); HEMOGLOBIN 13.6 g/dL (12.0-15.5); LYMPH # 1.7 x10^3/uL (1.0-4.8); LYMPH % 14 % (24-48); MEAN CORPUSCULAR HEMOGLOBIN 31 pg (25-35); MEAN CORPUSCULAR HGB CONC 33 g/dL (31-37); MEAN CORPUSCULAR VOLUME 93 fL (79-100); MONO % 8 % (0-9); NEUT % 73 % (31-73); PLATELET COUNT 194 x10^3/uL (140-400); RED BLOOD COUNT 4.45 x10^6/uL (3.50-5.40); RED CELL DISTRIBUTION WIDTH 12.8 % (11.5-14.5); WHITE BLOOD COUNT 12.3 x10^3/uL (4.0-11.0)
[2017-03-30 04:29] LABS: CALCIUM 8.5 mg/dL (8.5-10.1); CREATININE 1.1 mg/dL (0.6-1.0); GFR 49.4; POTASSIUM 3.8 mmol/L (3.5-5.1)
[2017-03-30 07:00] VITALS: BP 132/60
[2017-03-30] MEDS: ASPIRIN ENTERIC COATED 325 MG TABLET.DR. PO SCH (08:39)
[2017-03-30] MEDS: INSULIN ASPART 300 UNITS/3 ML INSULN.PEN SQ SCH ×3 (08:45→17:34)
--- NOTE | 2017-03-30 10:02 | PDOC ---
G I PROGRESS NOTE Subjective Appears to orient. Non-verbal. Physical Exam Lungs clear. RRR Abdomen soft, some grimacing with G-tube manipulation. PEG site dry w/o erythema. Review of Relevant I have reviewed the following items tamie (where applicable) has been applied. Labs Laboratory Tests Test 03/28/17 11:38 03/28/17 16:49 03/28/17 21:10 03/29/17 03:00 Glucose (Fingerstick) 216 mg/dL (70-99) 196 mg/dL (70-99) 206 mg/dL (70-99) White Blood Count 10.0 x10^3/uL (4.0-11.0) Red Blood Count 4.63 x10^6/uL (3.50-5.40) Hemoglobin 14.4 g/dL (12.0-15.5) Hematocrit 42.1 % (36.0-47.0) Mean Corpuscular Volume 91 fL (79-100) Mean Corpuscular Hemoglobin 31 pg (25-35) Mean Corpuscular Hemoglobin Concent 34 g/dL (31-37) Red Cell Distribution Width 12.8 % (11.5-14.5) Platelet Count 213 x10^3/uL (140-400) Neutrophils (%) (Auto) 77 % (31-73) Lymphocytes (%) (Auto) 10 % (24-48) Monocytes (%) (Auto) 8 % (0-9) Eosinophils (%) (Auto) 4 % (0-3) Basophils (%) (Auto) 1 % (0-3) Neutrophils # (Auto) 7.8 x10^3uL (1.8-7.7) Lymphocytes # (Auto) 1.0 x10^3/uL (1.0-4.8) Monocytes # (Auto) 0.8 x10^3/uL (0.0-1.1) Eosinophils # (Auto) 0.4 x10^3/uL (0.0-0.7) Basophils # (Auto) 0.1 x10^3/uL (0.0-0.2) Sodium Level 135 mmol/L (136-145) Potassium Level 4.1 mmol/L (3.5-5.1) Chloride Level 101 mmol/L (98-107) Carbon Dioxide Level 24 mmol/L (21-32) Anion Gap 10 (6-14) Blood Urea Nitrogen 24 mg/dL (7-20) Creatinine 0.9 mg/dL (0.6-1.0) Estimated GFR (Cockcroft-Gault) 62.3 Glucose Level 198 mg/dL (70-99) Calcium Level 8.9 mg/dL (8.5-10.1) Test 03/29/17 07:45 03/29/17 11:28 03/29/17 17:09 03/29/17 21:47 Glucose (Fingerstick) 206 mg/dL (70-99) 192 mg/dL (70-99) 167 mg/dL (70-99) 154 mg/dL (70-99) Test 03/30/17 03:05 03/30/17 06:59 White Blood Count 12.3 x10^3/uL (4.0-11.0) Red Blood Count 4.45 x10^6/uL (3.50-5.40) Hemoglobin 13.6 g/dL (12.0-15.5) Hematocrit 41.2 % (36.0-47.0) Mean Corpuscular Volume 93 fL (79-100) Mean Corpuscular Hemoglobin 31 pg (25-35) Mean Corpuscular Hemoglobin Concent 33 g/dL (31-37) Red Cell Distribution Width 12.8 % (11.5-14.5) Platelet Count 194 x10^3/uL (140-400) Neutrophils (%) (Auto) 73 % (31-73) Lymphocytes (%) (Auto) 14 % (24-48) Monocytes (%) (Auto) 8 % (0-9) Eosinophils (%) (Auto) 5 % (0-3) Basophils (%) (Auto) 1 % (0-3) Neutrophils # (Auto) 9.0 x10^3uL (1.8-7.7) Lymphocytes # (Auto) 1.7 x10^3/uL (1.0-4.8) Monocytes # (Auto) 1.0 x10^3/uL (0.0-1.1) Eosinophils # (Auto) 0.6 x10^3/uL (0.0-0.7) Basophils # (Auto) 0.1 x10^3/uL (0.0-0.2) Sodium Level 133 mmol/L (136-145) Potassium Level 3.8 mmol/L (3.5-5.1) Chloride Level 100 mmol/L (98-107) Carbon Dioxide Level 24 mmol/L (21-32) Anion Gap 9 (6-14) Blood Urea Nitrogen 25 mg/dL (7-20) Creatinine 1.1 mg/dL (0.6-1.0) Estimated GFR (Cockcroft-Gault) 49.4 Glucose Level 195 mg/dL (70-99) Calcium Level 8.5 mg/dL (8.5-10.1) Glucose (Fingerstick) 185 mg/dL (70-99) Laboratory Tests Test 03/29/17 11:28 03/29/17 17:09 03/29/17 21:47 03/30/17 03:05 Glucose (Fingerstick) 192 mg/dL (70-99) 167 mg/dL (70-99) 154 mg/dL (70-99) White Blood Count 12.3 x10^3/uL (4.0-11.0) Red Blood Count 4.45 x10^6/uL (3.50-5.40) Hemoglobin 13.6 g/dL (12.0-15.5) Hematocrit 41.2 % (36.0-47.0) Mean Corpuscular Volume 93 fL (79-100) Mean Corpuscular Hemoglobin 31 pg (25-35) Mean Corpuscular Hemoglobin Concent 33 g/dL (31-37) Red Cell Distribution Width 12.8 % (11.5-14.5) Platelet Count 194 x10^3/uL (140-400) Neutrophils (%) (Auto) 73 % (31-73) Lymphocytes (%) (Auto) 14 % (24-48) Monocytes (%) (Auto) 8 % (0-9) Eosinophils (%) (Auto) 5 % (0-3) Basophils (%) (Auto) 1 % (0-3) Neutrophils # (Auto) 9.0 x10^3uL (1.8-7.7) Lymphocytes # (Auto) 1.7 x10^3/uL (1.0-4.8) Monocytes # (Auto) 1.0 x10^3/uL (0.0-1.1) Eosinophils # (Auto) 0.6 x10^3/uL (0.0-0.7) Basophils # (Auto) 0.1 x10^3/uL (0.0-0.2) Sodium Level 133 mmol/L (136-145) Potassium Level 3.8 mmol/L (3.5-5.1) Chloride Level 100 mmol/L (98-107) Carbon Dioxide Level 24 mmol/L (21-32) Anion Gap 9 (6-14) Blood Urea Nitrogen 25 mg/dL (7-20) Creatinine 1.1 mg/dL (0.6-1.0) Estimated GFR (Cockcroft-Gault) 49.4 Glucose Level 195 mg/dL (70-99) Calcium Level 8.5 mg/dL (8.5-10.1) Test 03/30/17 06:59 Glucose (Fingerstick) 185 mg/dL (70-99) Medications Current Medications Insulin Aspart (NovoLOG) 0-5 UNITS TIDWMEALS SQ Last administered on 03/30/17 08:45; Start 03/24/17 at 17:00 Dextrose (Dextrose 50%-Water Syringe) 12.5 gm PRN Q15MIN PRN IV SEE COMMENTS; Start 03/24/17 at 12:30 Ceftriaxone Sodium 50 ml @ 100 mls/hr 1X ONCE IV Last administered on 13:33; Start 03/24/17 at 13:30; Stop 03/24/17 at 13:59; Status DC Ceftriaxone Sodium 1 gm/ Sodium Chloride 50 ml @ 100 mls/hr Q24H IV Last administered on 03/29/17 14:50; Start 03/25/17 at 14:00 Ondansetron HCl (Zofran) 4 mg PRN Q8HRS PRN IV NAUSEA/VOMITING; Start 03/24/17 at 13:30; Stop 03/25/17 at 13:29; Status DC Sodium Chloride 1,000 ml @ 125 mls/hr Q8H IV Last administered on 03/24/17 13 :37; Start 03/24/17 at 13:45; Stop 03/25/17 at 08:53; Status DC Aspirin (Aspirin) 300 mg 1X ONCE HI Last administered on 03/24/17 13:45; Start 03/24/17 at 13:45; Stop 03/24/17 at 13:46; Status DC Sodium Chloride (Normal Saline Flush) 3 ml QSHIFT PRN IV AFTER MEDS AND BLOOD DRAWS; Start 03/24/17 at 13:45 Sodium Chloride 1,000 ml @ 100 mls/hr Q10H IV Last administered on 03/25/17 01:22; Start 03/24/17 at 14:00; Stop 03/25/17 at 08:53; Status DC Aspirin (Ecotrin) 325 mg [id number] PO Last administered on 03/30/17 08:39; Start 03/25/17 at 08:00 Atorvastatin Calcium (Lipitor) 20 mg QHS PO Last administered on 03/29/17 22: 07; Start 03/24/17 at 21:00 Labetalol HCl (Normodyne) 10 mg PRN Q10MIN PRN IV HYPERTENSION, SEE COMMENTS Last administered on 03/25/17 20:08; Start 03/24/17 at 13:45 Acetaminophen (Tylenol) 650 mg PRN Q6HRS PRN PO FEVER; Start 03/24/17 at 13:45 ; Stop 03/29/17 at 21:13; Status DC Acetaminophen (Acetaminophen Supp) 650 mg PRN Q6HRS PRN HI FEVER Last administered on 03/28/17 21:42; Start 03/24/17 at 13:45 Enoxaparin Sodium (Lovenox 40mg Syringe) 40 mg Q24H SQ Last administered on 15:26; Start 03/24/17 at 15:00; Stop 03/29/17 at 08:44; Status DC Iohexol (Omnipaque 350 Mg/ml) 60 ml 1X ONCE IV Last administered on 03/24/17 16:25; Start 03/24/17 at 16:15; Stop 03/24/17 at 16:20; Status DC Info (Do NOT chart on this entry -- for MONITORING) 1 each PRN DAILY PRN MC SEE COMMENTS; Start 03/24/17 at 16:30; Stop 03/26/17 at 16:29; Status DC Ondansetron HCl (Zofran) 4 mg PRN Q6HRS PRN IV NAUSEA/VOMITING; Start 03/24/17 at 16:30 Amino Acids/ Glycerin/ Electrolytes 1,000 ml @ 80 mls/hr [id number] IV Last administered on 03/30/17 00:37; Start 03/25/17 at 09:30 Barium Sulfate (Varibar Thin Liquid Apple) 148 gm 1X ONCE PO Last administered on 03/26/17 13:30; Start 03/26/17 at 13:30; Stop 03/26/17 at 13:31 ; Status DC Ringer's Solution 1,000 ml @ 50 mls/hr Q20H IV ; Start 03/29/17 at 07:00; Stop 03/29/17 at 07:28; Status DC Diphenhydramine HCl (Benadryl) 25 mg PRN Q6HRS PRN IVP ITCHING Last administered on 03/29/17 09:54; Start 03/26/17 at 23:00 Potassium Chloride 50 ml @ 50 mls/hr Q1H IV ; Start 03/27/17 at 13:00; Stop at 14:59; Status UNV Potassium Chloride 100 ml @ 100 mls/hr Q1H IV Last administered on 03/27/17 19:45; Start 03/27/17 at 13:00; Stop 03/27/17 at 16:59; Status DC Ringer's Solution 1,000 ml @ 50 mls/hr Q20H IV ; Start 03/29/17 at 13:00; Stop 03/29/17 at 19:13; Status DC Midazolam HCl (Versed) 2 mg PRN 1X PRN IV PRIOR TO PROCEDURE; Start 03/29/17 at 12:15; Stop 03/29/17 at 15:49; Status DC Fentanyl Citrate (Fentanyl 2ml Vial) 25 mcg PRN Q5MIN PRN IV X 2 DOSES FOR PAIN ; Start 03/29/17 at 12:15; Stop 03/29/17 at 15:49; Status DC Fentanyl Citrate (Fentanyl 2ml Vial) 50 mcg PRN Q5MIN PRN IV X 2 DOSES FOR PAIN ; Start 03/29/17 at 12:15; Stop 03/29/17 at 15:49; Status DC Ringer's Solution 1,000 ml @ 125 mls/hr Q8H IV Last administered on 03/29/17 12:38; Start 03/29/17 at 12:07; Stop 03/29/17 at 17:31; Status DC Lidocaine HCl 2 ml 1X PRN PRN ID IV START; Start 03/29/17 at 12:15; Stop at 12:14 Propofol 20 ml @ As Directed STK-MED ONCE IV ; Start 03/29/17 at 12:29; Stop at 12:30; Status DC Morphine Sulfate 1 mg PRN Q2HR PRN IV PAIN Last administered on 03/29/17 16:20 ; Start 03/29/17 at 16:15 Morphine Sulfate 2 mg PRN Q2HR PRN IV PAIN Last administered on 03/29/17 22:06 ; Start 03/29/17 at 16:15 Acetaminophen (Tylenol) 650 mg PRN Q6HRS PRN PEG MILD PAIN / TEMP Last administered on 03/29/17 22:07; Start 03/29/17 at 21:15 Active Scripts Active Reported Atorvastatin Calcium 40 Mg Tablet 1 Tab PO DAILY Losartan Potassium 100 Mg Tablet 100 Mg PO DAILY Aspir 81 (Aspirin) 81 Mg Tablet.dr 1 Tab PO DAILY Vitals/I & O Vital Sign - Last 24 Hours 03/29/17 03/29/17 03/29/17 03/29/17 11:16 12:22 12:31 12:32 Temp 97.9 97.8 97.9 97.8 Pulse 57 64 Resp 20 18 B/P (MAP) 149/59 (89) Pulse Ox 96 98 O2 Delivery Room Air Room Air Room Air 03/29/17 03/29/17 03/29/17 03/29/17 13:00 13:29 13:40 13:55 Temp 97.1 97.1 Pulse 67 65 69 Resp 16 20 B/P (MAP) 178/81 179/88 182/81 Pulse Ox 96 96 O2 Delivery Room Air Nasal Cannula Nasal Cannula Room Air O2 Flow Rate 2 2 03/29/17 03/29/17 03/29/17 03/29/17 14:04 14:45 15:05 15:20 Temp 97.7 97.7 Pulse 67 63 68 68 Resp 18 20 18 18 B/P (MAP) 173/80 146/66 (92) 157/72 (100) 160/68 (98) Pulse Ox 94 92 92 94 O2 Delivery Room Air Room Air Room Air Room Air 03/29/17 03/29/17 03/29/17 8/28/17 15:35 16:00 16:20 16:30 Pulse 66 69 66 Resp 18 18 18 B/P (MAP) 182/66 (104) 177/68 (104) 157/58 (91) Pulse Ox 92 92 93 O2 Delivery Room Air Room Air Room Air Room Air 03/29/17 03/29/17 03/29/17 03/29/17 16:45 17:30 17:58 19:10 Temp 100.6 100.6 Pulse 65 67 Resp 18 18 B/P (MAP) 143/54 (83) 113/68 (83) Pulse Ox 94 94 O2 Delivery Room Air Room Air Room Air Room Air 03/29/17 03/29/17 03/29/17 03/29/17 20:00 20:01 22:06 22:36 O2 Delivery Room Air Room Air Room Air Room Air 03/29/17 03/30/17 03/30/17 23:10 03:10 07:00 Temp 100.0 98.2 98.3 100.0 98.2 98.3 Pulse 63 75 67 Resp 20 20 20 B/P (MAP) 114/62 (79) 147/64 (91) 132/60 (84) Pulse Ox 94 92 97 O2 Delivery Room Air Room Air Problem List Problems Medical Problems: (1) CVA (cerebral vascular accident) Status: Acute Assessment S/p PEG, OK to feed. Plan of Care: Continue current Tx, Mgmt Plan of Care Note Can start TF. NADYA JOHNSTON MD Mar 30, 2017 10:02
[2017-03-30 11:00] VITALS: BP 153/76
--- NOTE | 2017-03-30 12:45 | PDOC ---
PROGRESS NOTES Chief Complaint Chief Complaint CVA with left sided weakness PMH: hld htn Type 2 DM - uncontrolled Obesity Not compliant with meds History of Present Illness History of Present Illness Pt speaks chukese, granddaughter at bedside and helping translate. Pt is laying in bed, not handling secretions well. PEG dry and clean, no erythema. Family meeting scheduled for today at 11 am with Pallative care to discuss long-term goals of care. Per GI, resume lovenox today, ok to feed. Vitals Vitals Vital Signs Date Time Temp Pulse Resp B/P (MAP) Pulse Ox O2 Delivery O2 Flow Rate FiO2 03/30/17 07:00 98.3 67 20 132/60 (84) 97 98.3 03/30/17 03:10 Room Air 03/29/17 13:40 2 Physical Exam General: Cooperative, Other (arousable and following commands) Heart: Regular rate Lungs: Clear Abdomen: Soft, No tenderness Extremities: No clubbing, No cyanosis, No edema, Other (left arm paralyzed) Skin: No rashes, No breakdown Labs LABS Laboratory Tests Test 03/29/17 17:09 03/29/17 21:47 03/30/17 03:05 03/30/17 06:59 Glucose (Fingerstick) 167 mg/dL (70-99) 154 mg/dL (70-99) 185 mg/dL (70-99) White Blood Count 12.3 x10^3/uL (4.0-11.0) Red Blood Count 4.45 x10^6/uL (3.50-5.40) Hemoglobin 13.6 g/dL (12.0-15.5) Hematocrit 41.2 % (36.0-47.0) Mean Corpuscular Volume 93 fL (79-100) Mean Corpuscular Hemoglobin 31 pg (25-35) Mean Corpuscular Hemoglobin Concent 33 g/dL (31-37) Red Cell Distribution Width 12.8 % (11.5-14.5) Platelet Count 194 x10^3/uL (140-400) Neutrophils (%) (Auto) 73 % (31-73) Lymphocytes (%) (Auto) 14 % (24-48) Monocytes (%) (Auto) 8 % (0-9) Eosinophils (%) (Auto) 5 % (0-3) Basophils (%) (Auto) 1 % (0-3) Neutrophils # (Auto) 9.0 x10^3uL (1.8-7.7) Lymphocytes # (Auto) 1.7 x10^3/uL (1.0-4.8) Monocytes # (Auto) 1.0 x10^3/uL (0.0-1.1) Eosinophils # (Auto) 0.6 x10^3/uL (0.0-0.7) Basophils # (Auto) 0.1 x10^3/uL (0.0-0.2) Sodium Level 133 mmol/L (136-145) Potassium Level 3.8 mmol/L (3.5-5.1) Chloride Level 100 mmol/L (98-107) Carbon Dioxide Level 24 mmol/L (21-32) Anion Gap 9 (6-14) Blood Urea Nitrogen 25 mg/dL (7-20) Creatinine 1.1 mg/dL (0.6-1.0) Estimated GFR (Cockcroft-Gault) 49.4 Glucose Level 195 mg/dL (70-99) Calcium Level 8.5 mg/dL (8.5-10.1) Test 03/30/17 11:32 Glucose (Fingerstick) 167 mg/dL (70-99) Review of Systems Review of Systems Not handling secretions well nonverbal Assessment and Plan Assessmemt and Plan Problems Medical Problems: (1) CVA (cerebral vascular accident) Status: Acute Ischemic stroke Dysphagia 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 PEG tube placed, per GI okay to start feeding today, resume lovenox today for dvt ppx. 2. Per neurology start aspirin and statin after PEG placed. 3. Dietary consulted for PEG rate goal 4. Right carotid artery occlusion - no indication for surgery per Dr. Cordero 5. Continue PT/OT 6. Continue antibiotics for UTI, ceftriaxone started on 03/25/17 7. Recheck labs - CBC, BMP 8. Continue home meds 9. Appreciate subspecialty input Problems: Comment Review of Relevant I have reviewed the following items tamie (where applicable) has been applied. Labs Laboratory Tests Test 03/28/17 16:49 03/28/17 21:10 03/29/17 03:00 03/29/17 07:45 Glucose (Fingerstick) 196 mg/dL (70-99) 206 mg/dL (70-99) 206 mg/dL (70-99) White Blood Count 10.0 x10^3/uL (4.0-11.0) Red Blood Count 4.63 x10^6/uL (3.50-5.40) Hemoglobin 14.4 g/dL (12.0-15.5) Hematocrit 42.1 % (36.0-47.0) Mean Corpuscular Volume 91 fL (79-100) Mean Corpuscular Hemoglobin 31 pg (25-35) Mean Corpuscular Hemoglobin Concent 34 g/dL (31-37) Red Cell Distribution Width 12.8 % (11.5-14.5) Platelet Count 213 x10^3/uL (140-400) Neutrophils (%) (Auto) 77 % (31-73) Lymphocytes (%) (Auto) 10 % (24-48) Monocytes (%) (Auto) 8 % (0-9) Eosinophils (%) (Auto) 4 % (0-3) Basophils (%) (Auto) 1 % (0-3) Neutrophils # (Auto) 7.8 x10^3uL (1.8-7.7) Lymphocytes # (Auto) 1.0 x10^3/uL (1.0-4.8) Monocytes # (Auto) 0.8 x10^3/uL (0.0-1.1) Eosinophils # (Auto) 0.4 x10^3/uL (0.0-0.7) Basophils # (Auto) 0.1 x10^3/uL (0.0-0.2) Sodium Level 135 mmol/L (136-145) Potassium Level 4.1 mmol/L (3.5-5.1) Chloride Level 101 mmol/L (98-107) Carbon Dioxide Level 24 mmol/L (21-32) Anion Gap 10 (6-14) Blood Urea Nitrogen 24 mg/dL (7-20) Creatinine 0.9 mg/dL (0.6-1.0) Estimated GFR (Cockcroft-Gault) 62.3 Glucose Level 198 mg/dL (70-99) Calcium Level 8.9 mg/dL (8.5-10.1) Test 03/29/17 11:28 03/29/17 17:09 03/29/17 21:47 03/30/17 03:05 Glucose (Fingerstick) 192 mg/dL (70-99) 167 mg/dL (70-99) 154 mg/dL (70-99) White Blood Count 12.3 x10^3/uL (4.0-11.0) Red Blood Count 4.45 x10^6/uL (3.50-5.40) Hemoglobin 13.6 g/dL (12.0-15.5) Hematocrit 41.2 % (36.0-47.0) Mean Corpuscular Volume 93 fL (79-100) Mean Corpuscular Hemoglobin 31 pg (25-35) Mean Corpuscular Hemoglobin Concent 33 g/dL (31-37) Red Cell Distribution Width 12.8 % (11.5-14.5) Platelet Count 194 x10^3/uL (140-400) Neutrophils (%) (Auto) 73 % (31-73) Lymphocytes (%) (Auto) 14 % (24-48) Monocytes (%) (Auto) 8 % (0-9) Eosinophils (%) (Auto) 5 % (0-3) Basophils (%) (Auto) 1 % (0-3) Neutrophils # (Auto) 9.0 x10^3uL (1.8-7.7) Lymphocytes # (Auto) 1.7 x10^3/uL (1.0-4.8) Monocytes # (Auto) 1.0 x10^3/uL (0.0-1.1) Eosinophils # (Auto) 0.6 x10^3/uL (0.0-0.7) Basophils # (Auto) 0.1 x10^3/uL (0.0-0.2) Sodium Level 133 mmol/L (136-145) Potassium Level 3.8 mmol/L (3.5-5.1) Chloride Level 100 mmol/L (98-107) Carbon Dioxide Level 24 mmol/L (21-32) Anion Gap 9 (6-14) Blood Urea Nitrogen 25 mg/dL (7-20) Creatinine 1.1 mg/dL (0.6-1.0) Estimated GFR (Cockcroft-Gault) 49.4 Glucose Level 195 mg/dL (70-99) Calcium Level 8.5 mg/dL (8.5-10.1) Test 03/30/17 06:59 03/30/17 11:32 Glucose (Fingerstick) 185 mg/dL (70-99) 167 mg/dL (70-99) Laboratory Tests Test 03/29/17 17:09 03/29/17 21:47 03/30/17 03:05 03/30/17 06:59 Glucose (Fingerstick) 167 mg/dL (70-99) 154 mg/dL (70-99) 185 mg/dL (70-99) White Blood Count 12.3 x10^3/uL (4.0-11.0) Red Blood Count 4.45 x10^6/uL (3.50-5.40) Hemoglobin 13.6 g/dL (12.0-15.5) Hematocrit 41.2 % (36.0-47.0) Mean Corpuscular Volume 93 fL (79-100) Mean Corpuscular Hemoglobin 31 pg (25-35) Mean Corpuscular Hemoglobin Concent 33 g/dL (31-37) Red Cell Distribution Width 12.8 % (11.5-14.5) Platelet Count 194 x10^3/uL (140-400) Neutrophils (%) (Auto) 73 % (31-73) Lymphocytes (%) (Auto) 14 % (24-48) Monocytes (%) (Auto) 8 % (0-9) Eosinophils (%) (Auto) 5 % (0-3) Basophils (%) (Auto) 1 % (0-3) Neutrophils # (Auto) 9.0 x10^3uL (1.8-7.7) Lymphocytes # (Auto) 1.7 x10^3/uL (1.0-4.8) Monocytes # (Auto) 1.0 x10^3/uL (0.0-1.1) Eosinophils # (Auto) 0.6 x10^3/uL (0.0-0.7) Basophils # (Auto) 0.1 x10^3/uL (0.0-0.2) Sodium Level 133 mmol/L (136-145) Potassium Level 3.8 mmol/L (3.5-5.1) Chloride Level 100 mmol/L (98-107) Carbon Dioxide Level 24 mmol/L (21-32) Anion Gap 9 (6-14) Blood Urea Nitrogen 25 mg/dL (7-20) Creatinine 1.1 mg/dL (0.6-1.0) Estimated GFR (Cockcroft-Gault) 49.4 Glucose Level 195 mg/dL (70-99) Calcium Level 8.5 mg/dL (8.5-10.1) Test 03/30/17 11:32 Glucose (Fingerstick) 167 mg/dL (70-99) Medications Current Medications Insulin Aspart (NovoLOG) 0-5 UNITS TIDWMEALS SQ Last administered on 03/30/17 08:45; Start 03/24/17 at 17:00 Dextrose (Dextrose 50%-Water Syringe) 12.5 gm PRN Q15MIN PRN IV SEE COMMENTS; Start 03/24/17 at 12:30 Ceftriaxone Sodium 50 ml @ 100 mls/hr 1X ONCE IV Last administered on 13:33; Start 03/24/17 at 13:30; Stop 03/24/17 at 13:59; Status DC Ceftriaxone Sodium 1 gm/ Sodium Chloride 50 ml @ 100 mls/hr Q24H IV Last administered on 03/29/17 14:50; Start 03/25/17 at 14:00 Ondansetron HCl (Zofran) 4 mg PRN Q8HRS PRN IV NAUSEA/VOMITING; Start 03/24/17 at 13:30; Stop 03/25/17 at 13:29; Status DC Sodium Chloride 1,000 ml @ 125 mls/hr Q8H IV Last administered on 03/24/17 13 :37; Start 03/24/17 at 13:45; Stop 03/25/17 at 08:53; Status DC Aspirin (Aspirin) 300 mg 1X ONCE RI Last administered on 03/24/17 13:45; Start 03/24/17 at 13:45; Stop 03/24/17 at 13:46; Status DC Sodium Chloride (Normal Saline Flush) 3 ml QSHIFT PRN IV AFTER MEDS AND BLOOD DRAWS; Start 03/24/17 at 13:45 Sodium Chloride 1,000 ml @ 100 mls/hr Q10H IV Last administered on 03/25/17 01:22; Start 03/24/17 at 14:00; Stop 03/25/17 at 08:53; Status DC Aspirin (Ecotrin) 325 mg [id number] PO Last administered on 03/30/17 08:39; Start 03/25/17 at 08:00 Atorvastatin Calcium (Lipitor) 20 mg QHS PO Last administered on 03/29/17 22: 07; Start 03/24/17 at 21:00 Labetalol HCl (Normodyne) 10 mg PRN Q10MIN PRN IV HYPERTENSION, SEE COMMENTS Last administered on 03/25/17 20:08; Start 03/24/17 at 13:45 Acetaminophen (Tylenol) 650 mg PRN Q6HRS PRN PO FEVER; Start 03/24/17 at 13:45 ; Stop 03/29/17 at 21:13; Status DC Acetaminophen (Acetaminophen Supp) 650 mg PRN Q6HRS PRN RI FEVER Last administered on 03/28/17 21:42; Start 03/24/17 at 13:45 Enoxaparin Sodium (Lovenox 40mg Syringe) 40 mg Q24H SQ Last administered on 15:26; Start 03/24/17 at 15:00; Stop 03/29/17 at 08:44; Status DC Iohexol (Omnipaque 350 Mg/ml) 60 ml 1X ONCE IV Last administered on 03/24/17 16:25; Start 03/24/17 at 16:15; Stop 03/24/17 at 16:20; Status DC Info (Do NOT chart on this entry -- for MONITORING) 1 each PRN DAILY PRN MC SEE COMMENTS; Start 03/24/17 at 16:30; Stop 03/26/17 at 16:29; Status DC Ondansetron HCl (Zofran) 4 mg PRN Q6HRS PRN IV NAUSEA/VOMITING; Start 03/24/17 at 16:30 Amino Acids/ Glycerin/ Electrolytes 1,000 ml @ 80 mls/hr [id number] IV Last administered on 03/30/17 00:37; Start 03/25/17 at 09:30 Barium Sulfate (Varibar Thin Liquid Apple) 148 gm 1X ONCE PO Last administered on 03/26/17 13:30; Start 03/26/17 at 13:30; Stop 03/26/17 at 13:31 ; Status DC Ringer's Solution 1,000 ml @ 50 mls/hr Q20H IV ; Start 03/29/17 at 07:00; Stop 03/29/17 at 07:28; Status DC Diphenhydramine HCl (Benadryl) 25 mg PRN Q6HRS PRN IVP ITCHING Last administered on 03/29/17 09:54; Start 03/26/17 at 23:00 Potassium Chloride 50 ml @ 50 mls/hr Q1H IV ; Start 03/27/17 at 13:00; Stop at 14:59; Status UNV Potassium Chloride 100 ml @ 100 mls/hr Q1H IV Last administered on 03/27/17 19:45; Start 03/27/17 at 13:00; Stop 03/27/17 at 16:59; Status DC Ringer's Solution 1,000 ml @ 50 mls/hr Q20H IV ; Start 03/29/17 at 13:00; Stop 03/29/17 at 19:13; Status DC Midazolam HCl (Versed) 2 mg PRN 1X PRN IV PRIOR TO PROCEDURE; Start 03/29/17 at 12:15; Stop 03/29/17 at 15:49; Status DC Fentanyl Citrate (Fentanyl 2ml Vial) 25 mcg PRN Q5MIN PRN IV X 2 DOSES FOR PAIN ; Start 03/29/17 at 12:15; Stop 03/29/17 at 15:49; Status DC Fentanyl Citrate (Fentanyl 2ml Vial) 50 mcg PRN Q5MIN PRN IV X 2 DOSES FOR PAIN ; Start 03/29/17 at 12:15; Stop 03/29/17 at 15:49; Status DC Ringer's Solution 1,000 ml @ 125 mls/hr Q8H IV Last administered on 03/29/17 12:38; Start 03/29/17 at 12:07; Stop 03/29/17 at 17:31; Status DC Lidocaine HCl 2 ml 1X PRN PRN ID IV START; Start 03/29/17 at 12:15; Stop at 12:14; Status DC Propofol 20 ml @ As Directed STK-MED ONCE IV ; Start 03/29/17 at 12:29; Stop at 12:30; Status DC Morphine Sulfate 1 mg PRN Q2HR PRN IV PAIN Last administered on 03/29/17 16:20 ; Start 03/29/17 at 16:15 Morphine Sulfate 2 mg PRN Q2HR PRN IV PAIN Last administered on 03/29/17 22:06 ; Start 03/29/17 at 16:15 Acetaminophen (Tylenol) 650 mg PRN Q6HRS PRN PEG MILD PAIN / TEMP Last administered on 03/29/17 22:07; Start 03/29/17 at 21:15 Active Scripts Active Reported Atorvastatin Calcium 40 Mg Tablet 1 Tab PO DAILY Losartan Potassium 100 Mg Tablet 100 Mg PO DAILY Aspir 81 (Aspirin) 81 Mg Tablet. 1 Tab PO DAILY Vitals/I & O Vital Sign - Last 24 Hours 03/29/17 03/29/17 03/29/17 03/29/17 13:00 13:29 13:40 13:55 Temp 97.1 97.1 Pulse 67 65 69 Resp 16 20 B/P (MAP) 178/81 179/88 182/81 Pulse Ox 96 96 O2 Delivery Room Air Nasal Cannula Nasal Cannula Room Air O2 Flow Rate 2 2 03/29/17 03/29/17 03/29/17 03/29/17 14:04 14:45 15:05 15:20 Temp 97.7 97.7 Pulse 67 63 68 68 Resp 18 20 18 18 B/P (MAP) 173/80 146/66 (92) 157/72 (100) 160/68 (98) Pulse Ox 94 92 92 94 O2 Delivery Room Air Room Air Room Air Room Air 03/29/17 03/29/17 03/29/17 03/29/17 15:35 16:00 16:20 16:30 Pulse 66 69 66 Resp 18 18 18 B/P (MAP) 182/66 (104) 177/68 (104) 157/58 (91) Pulse Ox 92 92 93 O2 Delivery Room Air Room Air Room Air Room Air 03/29/17 03/29/17 03/29/17 03/29/17 16:45 17:30 17:58 19:10 Temp 100.6 100.6 Pulse 65 67 Resp 18 18 B/P (MAP) 143/54 (83) 113/68 (83) Pulse Ox 94 94 O2 Delivery Room Air Room Air Room Air Room Air 03/29/17 03/29/17 03/29/17 03/29/17 20:00 20:01 22:06 22:36 O2 Delivery Room Air Room Air Room Air Room Air 03/29/17 03/30/17 03/30/17 23:10 03:10 07:00 Temp 100.0 98.2 98.3 100.0 98.2 98.3 Pulse 63 75 67 Resp 20 20 20 B/P (MAP) 114/62 (79) 147/64 (91) 132/60 (84) Pulse Ox 94 92 97 O2 Delivery Room Air Room Air CHAGO VERGARA III DO Mar 30, 2017 12:45
--- NOTE | 2017-03-30 14:05 | PDOC ---
PROGRESS NOTES Assessment Assessment IMPRESSION: Subacute right BG, goldsmith radiata and right hemisphere infracts. Metabolic encephalopathy. Left side hemiplegia. 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 DM HTN HLD Obesity. UTI RECOMMENDATIONS/PLAN: Continue ASA 325 mg daily. Continue Lipitor HS. Vascular Surgery consulted and no indication for surgical intervention. OT/PT Discussed with her family at bedside. Past Medical History Cardiovascular: HTN CENTRAL NERVOUS SYSTEM: Other (headaches) GI: Other (she has been having some abdominal pain) Endocrine: Diabetes Past Surgical History Family History Hypertension Social History , used to smoke and uses alcohol but none in the last several years. ALLERGY: Reviewed. MEDICATIONS: Refer to MAR REVIEW OF SYSTEMS: Constitutional: No malnutrition, weight loss, cachexia. Head: No traumatic brain or head injury. Skin: No edema, or rash. Ear: No infection. Eyes: No vision loss, or diplopia. Nose: No bleeding or purulent discharges. Hearing: No hearing decrease. Neck: No injury. Breast: No history of cancer, masses, or discharges. Cardiac: HTN, HLD Pulmonary: No CPOD. GI: No GI Ulcer, GI bleeding Urinary/genital: UTI. Endocrine: Diabetes Mellitus, obesity. Skeletomuscular: No muscular atrophy, deformity. Neurological: see HP. Psychiatric: Denies drug use/abuse. Otherwise, not [id number] review of systems. PHYSICAL EXAMINATION: General appearance in subacute distress. HEENT: Normocephalic and nontraumatic. Eyes, nose, ears, and throat are unremarkable. Neck is supple. No lymphadenopathy. No No Crepitus. Cardiovascular: S1, S2, regular rate and rhythm. Pulmonary: No rails heard to auscultation bilaterally. Abdomen: Bowel sounds are positive. Extremities: No rash, lesions, or edema. NEUROLOGICAL EXAMINATION: Sleepiness, but arousable. Not oriented to time, place but knows person. PERRL. EOMI but slow. CN: left VII palsy.. Muscle tone: within normal. Muscle strength: left UE 0-1, left LE 1-2 DTR: 1+ Left UE and LE Plantar reflex: Neutral response bilaterally Gait: Unable to walk. Sensory exam: decreased in left UE and LE. No acute cerebellar signs elicited. F-T-N test not performed due to not follow commands. Objective Objective Vital Signs Date Time Temp Pulse Resp B/P (MAP) Pulse Ox O2 Delivery O2 Flow Rate FiO2 03/30/17 07:00 98.3 67 20 132/60 (84) 97 98.3 03/30/17 03:10 Room Air 03/29/17 13:40 2 Vitals Signs Vitals VS - Last 72 Hours, by Label Date Time Temp Pulse Resp B/P (MAP) Pulse Ox O2 Delivery O2 Flow Rate FiO2 03/30/17 07:00 98.3 67 20 132/60 (84) 97 98.3 03/30/17 03:10 98.2 75 20 147/64 (91) 92 Room Air 98.2 03/29/17 23:10 100.0 63 20 114/62 (79) 94 Room Air 100.0 03/29/17 22:36 Room Air 03/29/17 22:06 Room Air 03/29/17 20:01 Room Air 03/29/17 20:00 Room Air 03/29/17 19:10 100.6 67 18 113/68 (83) 94 Room Air 100.6 03/29/17 17:58 Room Air 03/29/17 17:30 65 18 143/54 (83) 94 Room Air 03/29/17 16:45 Room Air 03/29/17 16:30 66 18 157/58 (91) 93 Room Air 03/29/17 16:20 Room Air 03/29/17 16:00 69 18 177/68 (104) 92 Room Air 03/29/17 15:35 66 18 182/66 (104) 92 Room Air 03/29/17 15:20 68 18 160/68 (98) 94 Room Air 03/29/17 15:05 68 18 157/72 (100) 92 Room Air 03/29/17 14:45 97.7 63 20 146/66 (92) 92 Room Air 97.7 03/29/17 14:04 67 18 173/80 94 Room Air 03/29/17 13:55 69 182/81 Room Air 03/29/17 13:40 65 20 179/88 96 Nasal Cannula 2 03/29/17 13:29 97.1 67 16 178/81 96 Nasal Cannula 2 97.1 03/29/17 13:00 Room Air 03/29/17 12:32 Room Air 03/29/17 12:31 97.8 64 18 98 97.8 8/28/17 12:22 Room Air 03/29/17 11:16 97.9 57 20 149/59 (89) 96 Room Air 97.9 03/29/17 07:33 Room Air 03/29/17 07:12 97.9 65 20 116/56 (76) 93 Room Air 97.9 Laboratory Laboratory Laboratory Tests Test 03/29/17 17:09 03/29/17 21:47 03/30/17 03:05 03/30/17 06:59 Glucose (Fingerstick) 167 mg/dL (70-99) 154 mg/dL (70-99) 185 mg/dL (70-99) White Blood Count 12.3 x10^3/uL (4.0-11.0) Red Blood Count 4.45 x10^6/uL (3.50-5.40) Hemoglobin 13.6 g/dL (12.0-15.5) Hematocrit 41.2 % (36.0-47.0) Mean Corpuscular Volume 93 fL (79-100) Mean Corpuscular Hemoglobin 31 pg (25-35) Mean Corpuscular Hemoglobin Concent 33 g/dL (31-37) Red Cell Distribution Width 12.8 % (11.5-14.5) Platelet Count 194 x10^3/uL (140-400) Neutrophils (%) (Auto) 73 % (31-73) Lymphocytes (%) (Auto) 14 % (24-48) Monocytes (%) (Auto) 8 % (0-9) Eosinophils (%) (Auto) 5 % (0-3) Basophils (%) (Auto) 1 % (0-3) Neutrophils # (Auto) 9.0 x10^3uL (1.8-7.7) Lymphocytes # (Auto) 1.7 x10^3/uL (1.0-4.8) Monocytes # (Auto) 1.0 x10^3/uL (0.0-1.1) Eosinophils # (Auto) 0.6 x10^3/uL (0.0-0.7) Basophils # (Auto) 0.1 x10^3/uL (0.0-0.2) Sodium Level 133 mmol/L (136-145) Potassium Level 3.8 mmol/L (3.5-5.1) Chloride Level 100 mmol/L (98-107) Carbon Dioxide Level 24 mmol/L (21-32) Anion Gap 9 (6-14) Blood Urea Nitrogen 25 mg/dL (7-20) Creatinine 1.1 mg/dL (0.6-1.0) Estimated GFR (Cockcroft-Gault) 49.4 Glucose Level 195 mg/dL (70-99) Calcium Level 8.5 mg/dL (8.5-10.1) Test 03/30/17 11:32 Glucose (Fingerstick) 167 mg/dL (70-99) Medication Medications Current Medications Acetaminophen (Tylenol) 650 mg PRN Q6HRS PRN PEG MILD PAIN / TEMP Last administered on 03/29/17 22:07; Start 03/29/17 at 21:15 Morphine Sulfate 1 mg PRN Q2HR PRN IV PAIN Last administered on 03/29/17 16:20 ; Start 03/29/17 at 16:15 Morphine Sulfate 2 mg PRN Q2HR PRN IV PAIN Last administered on 03/29/17 22:06 ; Start 03/29/17 at 16:15 Comment Review of Relevant I have reviewed the following items tamie (where applicable) has been applied. REEMA CARTER MD Mar 30, 2017 14:05
[2017-03-30 15:00] VITALS: BP 140/62
[2017-03-30] MEDS: ACETAMINOPHEN 650 MG/20.3 ML SOLUTION. PEG PRN (15:19)
[2017-03-30] MEDS: diphenhydrAMINE 50 MG/ML VIAL IVP PRN ×2 (15:20→21:30)
--- NOTE | 2017-03-30 17:52 | PDOC2 ---
PALLIATIVE CARE Palliative Care Note Palliative Care Patient alert. Speaks Chuukese--understands some Faroese. From [facility]. Patient has been living in [place] for 5 years. Here in visiting family and decided to stay. Lives with grandson. Met with son Kei, Xochitl, Nash, Saul granddaughter in-law; Enrrique dean, Emmanuel daughter unable to attend. Reviewed current medical condition: CVA; PEG tube for feedings. Reviewed PT/ OT recommendation of Acute Rehabilitation. Family wants full aggressive care. Discussed resources for continued care. Granddaughter provided Medical Care from [place]. Also provided information requested for Medicaid application from [facility]. Discussed Code Status: Full Code Plan: Provided information to [facility] (medical card) Family wants Full Aggressive Care Full Code. EMIL WASHBURN Mar 30, 2017 17:52
[2017-03-30 19:10] VITALS: BP 96/51
[2017-03-30] MEDS: ATORVASTATIN CALCIUM 20 MG TABLET PO SCH (20:14)
[2017-03-30 23:10] VITALS: BP 118/69
[2017-03-31 03:10] VITALS: BP 131/41
[2017-03-31] MEDS: AMINO AC 3%/ELECTROLYTE/GLYCER 1,000 ML IV SCH (03:34)
[2017-03-31 04:45] LABS: BASO # 0.1 x10^3/uL (0.0-0.2); BASO % 0 % (0-3); EOS % 6 % (0-3); HEMATOCRIT 40.7 % (36.0-47.0); HEMOGLOBIN 13.5 g/dL (12.0-15.5); LYMPH # 1.1 x10^3/uL (1.0-4.8); LYMPH % 9 % (24-48); MEAN CORPUSCULAR HEMOGLOBIN 31 pg (25-35); MEAN CORPUSCULAR HGB CONC 33 g/dL (31-37); MEAN CORPUSCULAR VOLUME 93 fL (79-100); MONO % 7 % (0-9); NEUT % 79 % (31-73); PLATELET COUNT 185 x10^3/uL (140-400); RED BLOOD COUNT 4.39 x10^6/uL (3.50-5.40); RED CELL DISTRIBUTION WIDTH 12.6 % (11.5-14.5); WHITE BLOOD COUNT 12.9 x10^3/uL (4.0-11.0)
[2017-03-31 05:04] LABS: CALCIUM 8.6 mg/dL (8.5-10.1); CREATININE 0.8 mg/dL (0.6-1.0); GFR 71.3; POTASSIUM 3.5 mmol/L (3.5-5.1)
[2017-03-31 07:09] VITALS: BP 107/36
[2017-03-31] MEDS: ASPIRIN ENTERIC COATED 325 MG TABLET.DR. PO SCH (09:17)
[2017-03-31] MEDS: INSULIN ASPART 300 UNITS/3 ML INSULN.PEN SQ SCH ×3 (09:29→17:31)
--- NOTE | 2017-03-31 09:57 | PDOC ---
G I PROGRESS NOTE Subjective Non-verbal. Moves RUE, unclearly purposeful. Physical Exam Lungs clear. RRR Abdomen soft. PEG site with scant crusted blood. No drainage or erythema. Review of Relevant I have reviewed the following items tamie (where applicable) has been applied. Labs Laboratory Tests Test 03/29/17 11:28 03/29/17 17:09 03/29/17 21:47 03/30/17 03:05 Glucose (Fingerstick) 192 mg/dL (70-99) 167 mg/dL (70-99) 154 mg/dL (70-99) White Blood Count 12.3 x10^3/uL (4.0-11.0) Red Blood Count 4.45 x10^6/uL (3.50-5.40) Hemoglobin 13.6 g/dL (12.0-15.5) Hematocrit 41.2 % (36.0-47.0) Mean Corpuscular Volume 93 fL (79-100) Mean Corpuscular Hemoglobin 31 pg (25-35) Mean Corpuscular Hemoglobin Concent 33 g/dL (31-37) Red Cell Distribution Width 12.8 % (11.5-14.5) Platelet Count 194 x10^3/uL (140-400) Neutrophils (%) (Auto) 73 % (31-73) Lymphocytes (%) (Auto) 14 % (24-48) Monocytes (%) (Auto) 8 % (0-9) Eosinophils (%) (Auto) 5 % (0-3) Basophils (%) (Auto) 1 % (0-3) Neutrophils # (Auto) 9.0 x10^3uL (1.8-7.7) Lymphocytes # (Auto) 1.7 x10^3/uL (1.0-4.8) Monocytes # (Auto) 1.0 x10^3/uL (0.0-1.1) Eosinophils # (Auto) 0.6 x10^3/uL (0.0-0.7) Basophils # (Auto) 0.1 x10^3/uL (0.0-0.2) Sodium Level 133 mmol/L (136-145) Potassium Level 3.8 mmol/L (3.5-5.1) Chloride Level 100 mmol/L (98-107) Carbon Dioxide Level 24 mmol/L (21-32) Anion Gap 9 (6-14) Blood Urea Nitrogen 25 mg/dL (7-20) Creatinine 1.1 mg/dL (0.6-1.0) Estimated GFR (Cockcroft-Gault) 49.4 Glucose Level 195 mg/dL (70-99) Calcium Level 8.5 mg/dL (8.5-10.1) Test 03/30/17 06:59 03/30/17 11:32 03/30/17 17:00 03/30/17 20:43 Glucose (Fingerstick) 185 mg/dL (70-99) 167 mg/dL (70-99) 165 mg/dL (70-99) 180 mg/dL (70-99) Test 03/31/17 03:05 03/31/17 07:17 White Blood Count 12.9 x10^3/uL (4.0-11.0) Red Blood Count 4.39 x10^6/uL (3.50-5.40) Hemoglobin 13.5 g/dL (12.0-15.5) Hematocrit 40.7 % (36.0-47.0) Mean Corpuscular Volume 93 fL (79-100) Mean Corpuscular Hemoglobin 31 pg (25-35) Mean Corpuscular Hemoglobin Concent 33 g/dL (31-37) Red Cell Distribution Width 12.6 % (11.5-14.5) Platelet Count 185 x10^3/uL (140-400) Neutrophils (%) (Auto) 79 % (31-73) Lymphocytes (%) (Auto) 9 % (24-48) Monocytes (%) (Auto) 7 % (0-9) Eosinophils (%) (Auto) 6 % (0-3) Basophils (%) (Auto) 0 % (0-3) Neutrophils # (Auto) 10.2 x10^3uL (1.8-7.7) Lymphocytes # (Auto) 1.1 x10^3/uL (1.0-4.8) Monocytes # (Auto) 0.8 x10^3/uL (0.0-1.1) Eosinophils # (Auto) 0.7 x10^3/uL (0.0-0.7) Basophils # (Auto) 0.1 x10^3/uL (0.0-0.2) Sodium Level 137 mmol/L (136-145) Potassium Level 3.5 mmol/L (3.5-5.1) Chloride Level 101 mmol/L (98-107) Carbon Dioxide Level 25 mmol/L (21-32) Anion Gap 11 (6-14) Blood Urea Nitrogen 22 mg/dL (7-20) Creatinine 0.8 mg/dL (0.6-1.0) Estimated GFR (Cockcroft-Gault) 71.3 Glucose Level 194 mg/dL (70-99) Calcium Level 8.6 mg/dL (8.5-10.1) Glucose (Fingerstick) 208 mg/dL (70-99) Laboratory Tests Test 03/30/17 11:32 03/30/17 17:00 03/30/17 20:43 03/31/17 03:05 Glucose (Fingerstick) 167 mg/dL (70-99) 165 mg/dL (70-99) 180 mg/dL (70-99) White Blood Count 12.9 x10^3/uL (4.0-11.0) Red Blood Count 4.39 x10^6/uL (3.50-5.40) Hemoglobin 13.5 g/dL (12.0-15.5) Hematocrit 40.7 % (36.0-47.0) Mean Corpuscular Volume 93 fL (79-100) Mean Corpuscular Hemoglobin 31 pg (25-35) Mean Corpuscular Hemoglobin Concent 33 g/dL (31-37) Red Cell Distribution Width 12.6 % (11.5-14.5) Platelet Count 185 x10^3/uL (140-400) Neutrophils (%) (Auto) 79 % (31-73) Lymphocytes (%) (Auto) 9 % (24-48) Monocytes (%) (Auto) 7 % (0-9) Eosinophils (%) (Auto) 6 % (0-3) Basophils (%) (Auto) 0 % (0-3) Neutrophils # (Auto) 10.2 x10^3uL (1.8-7.7) Lymphocytes # (Auto) 1.1 x10^3/uL (1.0-4.8) Monocytes # (Auto) 0.8 x10^3/uL (0.0-1.1) Eosinophils # (Auto) 0.7 x10^3/uL (0.0-0.7) Basophils # (Auto) 0.1 x10^3/uL (0.0-0.2) Sodium Level 137 mmol/L (136-145) Potassium Level 3.5 mmol/L (3.5-5.1) Chloride Level 101 mmol/L (98-107) Carbon Dioxide Level 25 mmol/L (21-32) Anion Gap 11 (6-14) Blood Urea Nitrogen 22 mg/dL (7-20) Creatinine 0.8 mg/dL (0.6-1.0) Estimated GFR (Cockcroft-Gault) 71.3 Glucose Level 194 mg/dL (70-99) Calcium Level 8.6 mg/dL (8.5-10.1) Test 03/31/17 07:17 Glucose (Fingerstick) 208 mg/dL (70-99) Medications Current Medications Insulin Aspart (NovoLOG) 0-5 UNITS TIDWMEALS SQ Last administered on 03/31/17 09:29; Start 03/24/17 at 17:00 Dextrose (Dextrose 50%-Water Syringe) 12.5 gm PRN Q15MIN PRN IV SEE COMMENTS; Start 03/24/17 at 12:30 Ceftriaxone Sodium 50 ml @ 100 mls/hr 1X ONCE IV Last administered on 13:33; Start 03/24/17 at 13:30; Stop 03/24/17 at 13:59; Status DC Ceftriaxone Sodium 1 gm/ Sodium Chloride 50 ml @ 100 mls/hr Q24H IV Last administered on 03/30/17 13:23; Start 03/25/17 at 14:00 Ondansetron HCl (Zofran) 4 mg PRN Q8HRS PRN IV NAUSEA/VOMITING; Start 03/24/17 at 13:30; Stop 03/25/17 at 13:29; Status DC Sodium Chloride 1,000 ml @ 125 mls/hr Q8H IV Last administered on 03/24/17 13 :37; Start 03/24/17 at 13:45; Stop 03/25/17 at 08:53; Status DC Aspirin (Aspirin) 300 mg 1X ONCE DE Last administered on 03/24/17 13:45; Start 03/24/17 at 13:45; Stop 03/24/17 at 13:46; Status DC Sodium Chloride (Normal Saline Flush) 3 ml QSHIFT PRN IV AFTER MEDS AND BLOOD DRAWS; Start 03/24/17 at 13:45 Sodium Chloride 1,000 ml @ 100 mls/hr Q10H IV Last administered on 03/25/17 01:22; Start 03/24/17 at 14:00; Stop 03/25/17 at 08:53; Status DC Aspirin (Ecotrin) 325 mg [id number] PO Last administered on 03/31/17 09:17; Start 03/25/17 at 08:00 Atorvastatin Calcium (Lipitor) 20 mg QHS PO Last administered on 03/30/17 20: 14; Start 03/24/17 at 21:00 Labetalol HCl (Normodyne) 10 mg PRN Q10MIN PRN IV HYPERTENSION, SEE COMMENTS Last administered on 03/25/17 20:08; Start 03/24/17 at 13:45 Acetaminophen (Tylenol) 650 mg PRN Q6HRS PRN PO FEVER; Start 03/24/17 at 13:45 ; Stop 03/29/17 at 21:13; Status DC Acetaminophen (Acetaminophen Supp) 650 mg PRN Q6HRS PRN DE FEVER Last administered on 03/28/17 21:42; Start 03/24/17 at 13:45 Enoxaparin Sodium (Lovenox 40mg Syringe) 40 mg Q24H SQ Last administered on 15:26; Start 03/24/17 at 15:00; Stop 03/29/17 at 08:44; Status DC Iohexol (Omnipaque 350 Mg/ml) 60 ml 1X ONCE IV Last administered on 03/24/17 16:25; Start 03/24/17 at 16:15; Stop 03/24/17 at 16:20; Status DC Info (Do NOT chart on this entry -- for MONITORING) 1 each PRN DAILY PRN MC SEE COMMENTS; Start 03/24/17 at 16:30; Stop 03/26/17 at 16:29; Status DC Ondansetron HCl (Zofran) 4 mg PRN Q6HRS PRN IV NAUSEA/VOMITING; Start 03/24/17 at 16:30 Amino Acids/ Glycerin/ Electrolytes 1,000 ml @ 80 mls/hr [id number] IV Last administered on 03/31/17 03:34; Start 03/25/17 at 09:30 Barium Sulfate (Varibar Thin Liquid Apple) 148 gm 1X ONCE PO Last administered on 03/26/17 13:30; Start 03/26/17 at 13:30; Stop 03/26/17 at 13:31 ; Status DC Ringer's Solution 1,000 ml @ 50 mls/hr Q20H IV ; Start 03/29/17 at 07:00; Stop 03/29/17 at 07:28; Status DC Diphenhydramine HCl (Benadryl) 25 mg PRN Q6HRS PRN IVP ITCHING Last administered on 03/30/17 21:30; Start 03/26/17 at 23:00 Potassium Chloride 50 ml @ 50 mls/hr Q1H IV ; Start 03/27/17 at 13:00; Stop at 14:59; Status UNV Potassium Chloride 100 ml @ 100 mls/hr Q1H IV Last administered on 03/27/17 19:45; Start 03/27/17 at 13:00; Stop 03/27/17 at 16:59; Status DC Ringer's Solution 1,000 ml @ 50 mls/hr Q20H IV ; Start 03/29/17 at 13:00; Stop 03/29/17 at 19:13; Status DC Midazolam HCl (Versed) 2 mg PRN 1X PRN IV PRIOR TO PROCEDURE; Start 03/29/17 at 12:15; Stop 03/29/17 at 15:49; Status DC Fentanyl Citrate (Fentanyl 2ml Vial) 25 mcg PRN Q5MIN PRN IV X 2 DOSES FOR PAIN ; Start 03/29/17 at 12:15; Stop 03/29/17 at 15:49; Status DC Fentanyl Citrate (Fentanyl 2ml Vial) 50 mcg PRN Q5MIN PRN IV X 2 DOSES FOR PAIN ; Start 03/29/17 at 12:15; Stop 03/29/17 at 15:49; Status DC Ringer's Solution 1,000 ml @ 125 mls/hr Q8H IV Last administered on 03/29/17 12:38; Start 03/29/17 at 12:07; Stop 03/29/17 at 17:31; Status DC Lidocaine HCl 2 ml 1X PRN PRN ID IV START; Start 03/29/17 at 12:15; Stop at 12:14; Status DC Propofol 20 ml @ As Directed STK-MED ONCE IV ; Start 03/29/17 at 12:29; Stop at 12:30; Status DC Morphine Sulfate 1 mg PRN Q2HR PRN IV PAIN Last administered on 03/29/17 16:20 ; Start 03/29/17 at 16:15 Morphine Sulfate 2 mg PRN Q2HR PRN IV PAIN Last administered on 03/29/17 22:06 ; Start 03/29/17 at 16:15 Acetaminophen (Tylenol) 650 mg PRN Q6HRS PRN PEG MILD PAIN / TEMP Last administered on 03/30/17 15:19; Start 03/29/17 at 21:15 Active Scripts Active Reported Atorvastatin Calcium 40 Mg Tablet 1 Tab PO DAILY Losartan Potassium 100 Mg Tablet 100 Mg PO DAILY Aspir 81 (Aspirin) 81 Mg Tablet. 1 Tab PO DAILY Vitals/I & O Vital Sign - Last 24 Hours 03/30/17 03/30/17 03/30/17 03/30/17 11:00 15:00 19:10 20:10 Temp 97.3 98.2 98.4 97.3 98.2 98.4 Pulse 72 69 55 Resp 20 22 16 B/P (MAP) 153/76 (101) 140/62 (88) 96/51 (66) Pulse Ox 96 98 93 O2 Delivery Room Air Room Air Room Air Room Air 03/30/17 03/31/17 03/31/17 03/31/17 23:10 03:10 07:09 07:35 Temp 98.5 99.7 98.6 98.5 99.7 98.6 Pulse 59 70 69 Resp 18 18 18 B/P (MAP) 118/69 (85) 131/41 (71) 107/36 (59) Pulse Ox 96 95 94 O2 Delivery Room Air Room Air Room Air Room Air Intake and Output 03/31/17 03/31/17 04/01/17 15:00 23:00 07:00 Intake Total 0 ml Output Total 0 ml Balance 0 ml Problem List Problems Medical Problems: (1) CVA (cerebral vascular accident) Status: Acute Assessment S/p PEG. Plan of Care: Continue current Tx, Mgmt Plan of Care Note Continue titrating TF to desired rate. NADYA JOHNSTON MD Mar 31, 2017 09:57
[2017-03-31 10:37] VITALS: BP 108/47
[2017-03-31] MEDS ORDERED: MAGNESIUM HYDROXIDE 2,400 MG/30 ML ORAL.SUSP. PO PRN (12:15)
--- NOTE | 2017-03-31 13:19 | RAD ---
Exam performed: One view chest. History: Cough and shortness of air. Date of service: 03/31/17. Comparison: None available. Portable view chest findings: Mild cardiomegaly. Pulmonary vascularity appears normal. No focal infiltrates, effusion or pneumothorax seen. Bones are normal. Impression: No acute finding seen.
--- NOTE | 2017-03-31 14:31 | PDOC ---
PROGRESS NOTES Chief Complaint Chief Complaint CVA with left sided weakness hld htn Type 2 DM - uncontrolled Obesity Not compliant with meds leukocytosis, reactive? constipation plan: fu with gi, neuro on ASA, lipitor through PEG ON peg, DC ppn dc abx check CXR , ok add stool softner SW fu for SNF pat consulted History of Present Illness History of Present Illness ROS: no chills, sob or chest pain. T 99.9 Pt speaks chukese, granddaughter at bedside and helping translate. Pt is laying in bed, not handling secretions well. PEG dry and clean, no erythema. Family meeting scheduled for today at 11 am with Pallative care to discuss intermodal customer service goals of care. Per GI, resume lovenox today, ok to feed through PEG could move left lower ext, cannot move since Wednesday slightly high WBC at 12 Vitals Vitals Vital Signs Date Time Temp Pulse Resp B/P (MAP) Pulse Ox O2 Delivery O2 Flow Rate FiO2 03/31/17 10:37 99.9 72 19 108/47 (67) 95 Room Air 99.9 Physical Exam General: Alert, Cooperative, Other (arousable and following commands) Heart: Regular rate Lungs: Clear Abdomen: Soft, No tenderness Extremities: No clubbing, No cyanosis, No edema, Other (left arm paralyzed, left leg can move a little bit) Skin: No rashes, No breakdown Labs LABS Laboratory Tests Test 03/30/17 17:00 03/30/17 20:43 03/31/17 03:05 03/31/17 07:17 Glucose (Fingerstick) 165 mg/dL (70-99) 180 mg/dL (70-99) 208 mg/dL (70-99) White Blood Count 12.9 x10^3/uL (4.0-11.0) Red Blood Count 4.39 x10^6/uL (3.50-5.40) Hemoglobin 13.5 g/dL (12.0-15.5) Hematocrit 40.7 % (36.0-47.0) Mean Corpuscular Volume 93 fL (79-100) Mean Corpuscular Hemoglobin 31 pg (25-35) Mean Corpuscular Hemoglobin Concent 33 g/dL (31-37) Red Cell Distribution Width 12.6 % (11.5-14.5) Platelet Count 185 x10^3/uL (140-400) Neutrophils (%) (Auto) 79 % (31-73) Lymphocytes (%) (Auto) 9 % (24-48) Monocytes (%) (Auto) 7 % (0-9) Eosinophils (%) (Auto) 6 % (0-3) Basophils (%) (Auto) 0 % (0-3) Neutrophils # (Auto) 10.2 x10^3uL (1.8-7.7) Lymphocytes # (Auto) 1.1 x10^3/uL (1.0-4.8) Monocytes # (Auto) 0.8 x10^3/uL (0.0-1.1) Eosinophils # (Auto) 0.7 x10^3/uL (0.0-0.7) Basophils # (Auto) 0.1 x10^3/uL (0.0-0.2) Sodium Level 137 mmol/L (136-145) Potassium Level 3.5 mmol/L (3.5-5.1) Chloride Level 101 mmol/L (98-107) Carbon Dioxide Level 25 mmol/L (21-32) Anion Gap 11 (6-14) Blood Urea Nitrogen 22 mg/dL (7-20) Creatinine 0.8 mg/dL (0.6-1.0) Estimated GFR (Cockcroft-Gault) 71.3 Glucose Level 194 mg/dL (70-99) Calcium Level 8.6 mg/dL (8.5-10.1) Test 03/31/17 11:20 Glucose (Fingerstick) 169 mg/dL (70-99) Assessment and Plan Assessmemt and Plan Problems Medical Problems: (1) CVA (cerebral vascular accident) Status: Acute Problems: Comment Review of Relevant I have reviewed the following items tamie (where applicable) has been applied. Labs Laboratory Tests Test 03/29/17 17:09 03/29/17 21:47 03/30/17 03:05 03/30/17 06:59 Glucose (Fingerstick) 167 mg/dL (70-99) 154 mg/dL (70-99) 185 mg/dL (70-99) White Blood Count 12.3 x10^3/uL (4.0-11.0) Red Blood Count 4.45 x10^6/uL (3.50-5.40) Hemoglobin 13.6 g/dL (12.0-15.5) Hematocrit 41.2 % (36.0-47.0) Mean Corpuscular Volume 93 fL (79-100) Mean Corpuscular Hemoglobin 31 pg (25-35) Mean Corpuscular Hemoglobin Concent 33 g/dL (31-37) Red Cell Distribution Width 12.8 % (11.5-14.5) Platelet Count 194 x10^3/uL (140-400) Neutrophils (%) (Auto) 73 % (31-73) Lymphocytes (%) (Auto) 14 % (24-48) Monocytes (%) (Auto) 8 % (0-9) Eosinophils (%) (Auto) 5 % (0-3) Basophils (%) (Auto) 1 % (0-3) Neutrophils # (Auto) 9.0 x10^3uL (1.8-7.7) Lymphocytes # (Auto) 1.7 x10^3/uL (1.0-4.8) Monocytes # (Auto) 1.0 x10^3/uL (0.0-1.1) Eosinophils # (Auto) 0.6 x10^3/uL (0.0-0.7) Basophils # (Auto) 0.1 x10^3/uL (0.0-0.2) Sodium Level 133 mmol/L (136-145) Potassium Level 3.8 mmol/L (3.5-5.1) Chloride Level 100 mmol/L (98-107) Carbon Dioxide Level 24 mmol/L (21-32) Anion Gap 9 (6-14) Blood Urea Nitrogen 25 mg/dL (7-20) Creatinine 1.1 mg/dL (0.6-1.0) Estimated GFR (Cockcroft-Gault) 49.4 Glucose Level 195 mg/dL (70-99) Calcium Level 8.5 mg/dL (8.5-10.1) Test 03/30/17 11:32 03/30/17 17:00 03/30/17 20:43 03/31/17 03:05 Glucose (Fingerstick) 167 mg/dL (70-99) 165 mg/dL (70-99) 180 mg/dL (70-99) White Blood Count 12.9 x10^3/uL (4.0-11.0) Red Blood Count 4.39 x10^6/uL (3.50-5.40) Hemoglobin 13.5 g/dL (12.0-15.5) Hematocrit 40.7 % (36.0-47.0) Mean Corpuscular Volume 93 fL (79-100) Mean Corpuscular Hemoglobin 31 pg (25-35) Mean Corpuscular Hemoglobin Concent 33 g/dL (31-37) Red Cell Distribution Width 12.6 % (11.5-14.5) Platelet Count 185 x10^3/uL (140-400) Neutrophils (%) (Auto) 79 % (31-73) Lymphocytes (%) (Auto) 9 % (24-48) Monocytes (%) (Auto) 7 % (0-9) Eosinophils (%) (Auto) 6 % (0-3) Basophils (%) (Auto) 0 % (0-3) Neutrophils # (Auto) 10.2 x10^3uL (1.8-7.7) Lymphocytes # (Auto) 1.1 x10^3/uL (1.0-4.8) Monocytes # (Auto) 0.8 x10^3/uL (0.0-1.1) Eosinophils # (Auto) 0.7 x10^3/uL (0.0-0.7) Basophils # (Auto) 0.1 x10^3/uL (0.0-0.2) Sodium Level 137 mmol/L (136-145) Potassium Level 3.5 mmol/L (3.5-5.1) Chloride Level 101 mmol/L (98-107) Carbon Dioxide Level 25 mmol/L (21-32) Anion Gap 11 (6-14) Blood Urea Nitrogen 22 mg/dL (7-20) Creatinine 0.8 mg/dL (0.6-1.0) Estimated GFR (Cockcroft-Gault) 71.3 Glucose Level 194 mg/dL (70-99) Calcium Level 8.6 mg/dL (8.5-10.1) Test 03/31/17 07:17 03/31/17 11:20 Glucose (Fingerstick) 208 mg/dL (70-99) 169 mg/dL (70-99) Laboratory Tests Test 03/30/17 17:00 03/30/17 20:43 03/31/17 03:05 03/31/17 07:17 Glucose (Fingerstick) 165 mg/dL (70-99) 180 mg/dL (70-99) 208 mg/dL (70-99) White Blood Count 12.9 x10^3/uL (4.0-11.0) Red Blood Count 4.39 x10^6/uL (3.50-5.40) Hemoglobin 13.5 g/dL (12.0-15.5) Hematocrit 40.7 % (36.0-47.0) Mean Corpuscular Volume 93 fL (79-100) Mean Corpuscular Hemoglobin 31 pg (25-35) Mean Corpuscular Hemoglobin Concent 33 g/dL (31-37) Red Cell Distribution Width 12.6 % (11.5-14.5) Platelet Count 185 x10^3/uL (140-400) Neutrophils (%) (Auto) 79 % (31-73) Lymphocytes (%) (Auto) 9 % (24-48) Monocytes (%) (Auto) 7 % (0-9) Eosinophils (%) (Auto) 6 % (0-3) Basophils (%) (Auto) 0 % (0-3) Neutrophils # (Auto) 10.2 x10^3uL (1.8-7.7) Lymphocytes # (Auto) 1.1 x10^3/uL (1.0-4.8) Monocytes # (Auto) 0.8 x10^3/uL (0.0-1.1) Eosinophils # (Auto) 0.7 x10^3/uL (0.0-0.7) Basophils # (Auto) 0.1 x10^3/uL (0.0-0.2) Sodium Level 137 mmol/L (136-145) Potassium Level 3.5 mmol/L (3.5-5.1) Chloride Level 101 mmol/L (98-107) Carbon Dioxide Level 25 mmol/L (21-32) Anion Gap 11 (6-14) Blood Urea Nitrogen 22 mg/dL (7-20) Creatinine 0.8 mg/dL (0.6-1.0) Estimated GFR (Cockcroft-Gault) 71.3 Glucose Level 194 mg/dL (70-99) Calcium Level 8.6 mg/dL (8.5-10.1) Test 03/31/17 11:20 Glucose (Fingerstick) 169 mg/dL (70-99) Medications Current Medications Insulin Aspart (NovoLOG) 0-5 UNITS TIDWMEALS SQ Last administered on 03/31/17 12:33; Start 03/24/17 at 17:00 Dextrose (Dextrose 50%-Water Syringe) 12.5 gm PRN Q15MIN PRN IV SEE COMMENTS; Start 03/24/17 at 12:30 Ceftriaxone Sodium 50 ml @ 100 mls/hr 1X ONCE IV Last administered on 13:33; Start 03/24/17 at 13:30; Stop 03/24/17 at 13:59; Status DC Ceftriaxone Sodium 1 gm/ Sodium Chloride 50 ml @ 100 mls/hr Q24H IV Last administered on 03/30/17 13:23; Start 03/25/17 at 14:00 Ondansetron HCl (Zofran) 4 mg PRN Q8HRS PRN IV NAUSEA/VOMITING; Start 03/24/17 at 13:30; Stop 03/25/17 at 13:29; Status DC Sodium Chloride 1,000 ml @ 125 mls/hr Q8H IV Last administered on 03/24/17 13 :37; Start 03/24/17 at 13:45; Stop 03/25/17 at 08:53; Status DC Aspirin (Aspirin) 300 mg 1X ONCE NM Last administered on 03/24/17 13:45; Start 03/24/17 at 13:45; Stop 03/24/17 at 13:46; Status DC Sodium Chloride (Normal Saline Flush) 3 ml QSHIFT PRN IV AFTER MEDS AND BLOOD DRAWS; Start 03/24/17 at 13:45 Sodium Chloride 1,000 ml @ 100 mls/hr Q10H IV Last administered on 03/25/17 01:22; Start 03/24/17 at 14:00; Stop 03/25/17 at 08:53; Status DC Aspirin (Ecotrin) 325 mg [id number] PO Last administered on 03/31/17 09:17; Start 03/25/17 at 08:00 Atorvastatin Calcium (Lipitor) 20 mg QHS PO Last administered on 03/30/17 20: 14; Start 03/24/17 at 21:00 Labetalol HCl (Normodyne) 10 mg PRN Q10MIN PRN IV HYPERTENSION, SEE COMMENTS Last administered on 03/25/17 20:08; Start 03/24/17 at 13:45 Acetaminophen (Tylenol) 650 mg PRN Q6HRS PRN PO FEVER; Start 03/24/17 at 13:45 ; Stop 03/29/17 at 21:13; Status DC Acetaminophen (Acetaminophen Supp) 650 mg PRN Q6HRS PRN NM FEVER Last administered on 03/28/17 21:42; Start 03/24/17 at 13:45 Enoxaparin Sodium (Lovenox 40mg Syringe) 40 mg Q24H SQ Last administered on 15:26; Start 03/24/17 at 15:00; Stop 03/29/17 at 08:44; Status DC Iohexol (Omnipaque 350 Mg/ml) 60 ml 1X ONCE IV Last administered on 03/24/17 16:25; Start 03/24/17 at 16:15; Stop 03/24/17 at 16:20; Status DC Info (Do NOT chart on this entry -- for MONITORING) 1 each PRN DAILY PRN MC SEE COMMENTS; Start 03/24/17 at 16:30; Stop 03/26/17 at 16:29; Status DC Ondansetron HCl (Zofran) 4 mg PRN Q6HRS PRN IV NAUSEA/VOMITING; Start 03/24/17 at 16:30 Amino Acids/ Glycerin/ Electrolytes 1,000 ml @ 80 mls/hr [id number] IV Last administered on 03/31/17 03:34; Start 03/25/17 at 09:30; Stop 03/31/17 at 12:13 ; Status DC Barium Sulfate (Varibar Thin Liquid Apple) 148 gm 1X ONCE PO Last administered on 03/26/17 13:30; Start 03/26/17 at 13:30; Stop 03/26/17 at 13:31 ; Status DC Ringer's Solution 1,000 ml @ 50 mls/hr Q20H IV ; Start 03/29/17 at 07:00; Stop 03/29/17 at 07:28; Status DC Diphenhydramine HCl (Benadryl) 25 mg PRN Q6HRS PRN IVP ITCHING Last administered on 03/30/17 21:30; Start 03/26/17 at 23:00 Potassium Chloride 50 ml @ 50 mls/hr Q1H IV ; Start 03/27/17 at 13:00; Stop at 14:59; Status UNV Potassium Chloride 100 ml @ 100 mls/hr Q1H IV Last administered on 03/27/17 19:45; Start 03/27/17 at 13:00; Stop 03/27/17 at 16:59; Status DC Ringer's Solution 1,000 ml @ 50 mls/hr Q20H IV ; Start 03/29/17 at 13:00; Stop 03/29/17 at 19:13; Status DC Midazolam HCl (Versed) 2 mg PRN 1X PRN IV PRIOR TO PROCEDURE; Start 03/29/17 at 12:15; Stop 03/29/17 at 15:49; Status DC Fentanyl Citrate (Fentanyl 2ml Vial) 25 mcg PRN Q5MIN PRN IV X 2 DOSES FOR PAIN ; Start 03/29/17 at 12:15; Stop 03/29/17 at 15:49; Status DC Fentanyl Citrate (Fentanyl 2ml Vial) 50 mcg PRN Q5MIN PRN IV X 2 DOSES FOR PAIN ; Start 03/29/17 at 12:15; Stop 03/29/17 at 15:49; Status DC Ringer's Solution 1,000 ml @ 125 mls/hr Q8H IV Last administered on 03/29/17 12:38; Start 03/29/17 at 12:07; Stop 03/29/17 at 17:31; Status DC Lidocaine HCl 2 ml 1X PRN PRN ID IV START; Start 03/29/17 at 12:15; Stop at 12:14; Status DC Propofol 20 ml @ As Directed STK-MED ONCE IV ; Start 03/29/17 at 12:29; Stop at 12:30; Status DC Morphine Sulfate 1 mg PRN Q2HR PRN IV PAIN Last administered on 03/29/17 16:20 ; Start 03/29/17 at 16:15 Morphine Sulfate 2 mg PRN Q2HR PRN IV PAIN Last administered on 03/29/17 22:06 ; Start 03/29/17 at 16:15 Acetaminophen (Tylenol) 650 mg PRN Q6HRS PRN PEG MILD PAIN / TEMP Last administered on 03/30/17t 15:19; Start 03/29/17 at 21:15 Senna/Docusate Sodium (Senna Plus) 1 tab BID PO ; Start 03/31/17 at 21:00 Docusate Sodium (Colace) 100 mg BID PO ; Start 03/31/17 at 21:00 Magnesium Hydroxide (Milk Of Magnesia) 2,400 mg PRN Q12HR PRN PO CONSTIPATION; Start 03/31/17 at 12:15 Active Scripts Active Reported Atorvastatin Calcium 40 Mg Tablet 1 Tab PO DAILY Losartan Potassium 100 Mg Tablet 100 Mg PO DAILY Aspir 81 (Aspirin) 81 Mg Tablet. 1 Tab PO DAILY Vitals/I & O Vital Sign - Last 24 Hours 03/30/17 03/30/17 03/30/17 03/30/17 15:00 19:10 20:10 23:10 Temp 98.2 98.4 98.5 98.2 98.4 98.5 Pulse 69 55 59 Resp 22 16 18 B/P (MAP) 140/62 (88) 96/51 (66) 118/69 (85) Pulse Ox 98 93 96 O2 Delivery Room Air Room Air Room Air Room Air 03/31/17 03/31/17 03/31/17 03/31/17 03:10 07:09 07:35 10:37 Temp 99.7 98.6 99.9 99.7 98.6 99.9 Pulse 70 69 72 Resp 18 18 19 B/P (MAP) 131/41 (71) 107/36 (59) 108/47 (67) Pulse Ox 95 94 95 O2 Delivery Room Air Room Air Room Air Room Air Intake and Output 03/31/17 03/31/17 04/01/17 15:00 23:00 07:00 Intake Total 140 ml Output Total 0 ml Balance 140 ml ANA WOODSON MD Mar 31, 2017 14:31
[2017-03-31 14:47] VITALS: BP 108/43
--- NOTE | 2017-03-31 15:54 | PDOC ---
PROGRESS NOTES Assessment Assessment Subacute right BG, goldsmith radiata and right hemisphere infracts. Metabolic encephalopathy. Left side hemiplegia. 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 DM HTN HLD Obesity. UTI RECOMMENDATIONS/PLAN: Continue ASA 325 mg daily. Continue Lipitor HS. Vascular Surgery consulted and no indication for surgical intervention. OT/PT Rehab. Discussed with her granddaughter at bedside. Past Medical History Cardiovascular: HTN CENTRAL NERVOUS SYSTEM: Other (headaches) GI: Other (she has been having some abdominal pain) Endocrine: Diabetes Past Surgical History Family History Hypertension Social History , used to smoke and uses alcohol but none in the last several years. ALLERGY: Reviewed. MEDICATIONS: Refer to MAR REVIEW OF SYSTEMS: Constitutional: No malnutrition, weight loss, cachexia. Head: No traumatic brain or head injury. Skin: No edema, or rash. Ear: No infection. Eyes: No vision loss, or diplopia. Nose: No bleeding or purulent discharges. Hearing: No hearing decrease. Neck: No injury. Breast: No history of cancer, masses, or discharges. Cardiac: HTN, HLD Pulmonary: No CPOD. GI: No GI Ulcer, GI bleeding Urinary/genital: UTI. Endocrine: Diabetes Mellitus, obesity. Skeletomuscular: No muscular atrophy, deformity. Neurological: see HP. Psychiatric: Denies drug use/abuse. Otherwise, not [id number] review of systems. PHYSICAL EXAMINATION: General appearance in subacute distress. HEENT: Normocephalic and nontraumatic. Eyes, nose, ears, and throat are unremarkable. Neck is supple. No lymphadenopathy. No No Crepitus. Cardiovascular: S1, S2, regular rate and rhythm. Pulmonary: No rails heard to auscultation bilaterally. Abdomen: Bowel sounds are positive. Extremities: No rash, lesions, or edema. NEUROLOGICAL EXAMINATION: Sleepiness, but arousable. Not oriented to time, place but knows her family members. PERRL. EOMI but slow. Gaze deviation to right side. CN: left VII palsy. Muscle tone: within normal. Muscle strength: left UE 1, left LE 2 DTR: 1+ Left UE and LE Plantar reflex: left side extensor response, right side neutral response. Gait: Unable to walk. Sensory exam: decreased in left UE and LE. No acute cerebellar signs elicited. F-T-N test not performed due to not follow commands. Objective Objective Vital Signs Date Time Temp Pulse Resp B/P (MAP) Pulse Ox O2 Delivery O2 Flow Rate FiO2 03/31/17 14:47 98.0 79 20 108/43 (64) 94 Room Air 98.0 Intake and Output 04/01/17 07:00 Intake Total 140 ml Output Total 0 ml Balance 140 ml Tube Feeding 140 ml Gastric Drainage Total 0 ml Vitals Signs Vitals VS - Last 72 Hours, by Label Date Time Temp Pulse Resp B/P (MAP) Pulse Ox O2 Delivery O2 Flow Rate FiO2 03/31/17 14:47 98.0 79 20 108/43 (64) 94 Room Air 98.0 03/31/17 10:37 99.9 72 19 108/47 (67) 95 Room Air 99.9 03/31/17 07:35 Room Air 03/31/17 07:09 98.6 69 18 107/36 (59) 94 Room Air 98.6 03/31/17 03:10 99.7 70 18 131/41 (71) 95 Room Air 99.7 03/30/17 23:10 98.5 59 18 118/69 (85) 96 Room Air 98.5 03/30/17 20:10 Room Air 03/30/17 19:10 98.4 55 16 96/51 (66) 93 Room Air 98.4 03/30/17 15:00 98.2 69 22 140/62 (88) 98 Room Air 98.2 03/30/17 11:00 97.3 72 20 153/76 (101) 96 Room Air 97.3 03/30/17 08:00 Room Air 03/30/17 07:00 98.3 67 20 132/60 (84) 97 98.3 Laboratory Laboratory Laboratory Tests Test 03/30/17 17:00 03/30/17 20:43 03/31/17 03:05 03/31/17 07:17 Glucose (Fingerstick) 165 mg/dL (70-99) 180 mg/dL (70-99) 208 mg/dL (70-99) White Blood Count 12.9 x10^3/uL (4.0-11.0) Red Blood Count 4.39 x10^6/uL (3.50-5.40) Hemoglobin 13.5 g/dL (12.0-15.5) Hematocrit 40.7 % (36.0-47.0) Mean Corpuscular Volume 93 fL (79-100) Mean Corpuscular Hemoglobin 31 pg (25-35) Mean Corpuscular Hemoglobin Concent 33 g/dL (31-37) Red Cell Distribution Width 12.6 % (11.5-14.5) Platelet Count 185 x10^3/uL (140-400) Neutrophils (%) (Auto) 79 % (31-73) Lymphocytes (%) (Auto) 9 % (24-48) Monocytes (%) (Auto) 7 % (0-9) Eosinophils (%) (Auto) 6 % (0-3) Basophils (%) (Auto) 0 % (0-3) Neutrophils # (Auto) 10.2 x10^3uL (1.8-7.7) Lymphocytes # (Auto) 1.1 x10^3/uL (1.0-4.8) Monocytes # (Auto) 0.8 x10^3/uL (0.0-1.1) Eosinophils # (Auto) 0.7 x10^3/uL (0.0-0.7) Basophils # (Auto) 0.1 x10^3/uL (0.0-0.2) Sodium Level 137 mmol/L (136-145) Potassium Level 3.5 mmol/L (3.5-5.1) Chloride Level 101 mmol/L (98-107) Carbon Dioxide Level 25 mmol/L (21-32) Anion Gap 11 (6-14) Blood Urea Nitrogen 22 mg/dL (7-20) Creatinine 0.8 mg/dL (0.6-1.0) Estimated GFR (Cockcroft-Gault) 71.3 Glucose Level 194 mg/dL (70-99) Calcium Level 8.6 mg/dL (8.5-10.1) Test 03/31/17 11:20 Glucose (Fingerstick) 169 mg/dL (70-99) Medication Medications Current Medications Docusate Sodium (Colace) 100 mg BID PO ; Start 03/31/17 at 21:00 Magnesium Hydroxide (Milk Of Magnesia) 2,400 mg PRN Q12HR PRN PO CONSTIPATION; Start 03/31/17 at 12:15 Senna/Docusate Sodium (Senna Plus) 1 tab BID PO ; Start 03/31/17 at 21:00 Comment Review of Relevant I have reviewed the following items tamie (where applicable) has been applied. REEMA CARTER MD Mar 31, 2017 15:54
[2017-03-31 19:47] VITALS: BP 128/49
[2017-03-31] MEDS: DOCUSATE SODIUM 100 MG CAPSULE. PO SCH (20:33)
[2017-03-31] MEDS: ATORVASTATIN CALCIUM 20 MG TABLET PO SCH (20:33)
[2017-03-31] MEDS: SENNOSIDES/DOCUSATE 8.6/50MG TABLET. PO SCH (20:33)
[2017-03-31] MEDS: ACETAMINOPHEN 650 MG/20.3 ML SOLUTION. PEG PRN (20:33)
[2017-03-31 23:39] VITALS: BP 99/46
[2017-04-01] MEDS: diphenhydrAMINE 50 MG/ML VIAL IVP PRN ×2 (02:35→23:43)
[2017-04-01 03:21] VITALS: BP 144/62
[2017-04-01 05:15] LABS: BASO # 0.1 x10^3/uL (0.0-0.2); BASO % 0 % (0-3); EOS % 4 % (0-3); HEMATOCRIT 40.5 % (36.0-47.0); HEMOGLOBIN 13.6 g/dL (12.0-15.5); LYMPH # 1.8 x10^3/uL (1.0-4.8); LYMPH % 11 % (24-48); MEAN CORPUSCULAR HEMOGLOBIN 31 pg (25-35); MEAN CORPUSCULAR HGB CONC 34 g/dL (31-37); MEAN CORPUSCULAR VOLUME 91 fL (79-100); MONO % 8 % (0-9); NEUT % 76 % (31-73); PLATELET COUNT 221 x10^3/uL (140-400); RED BLOOD COUNT 4.45 x10^6/uL (3.50-5.40); RED CELL DISTRIBUTION WIDTH 12.6 % (11.5-14.5); WHITE BLOOD COUNT 15.8 x10^3/uL (4.0-11.0)
[2017-04-01 05:34] LABS: CALCIUM 8.2 mg/dL (8.5-10.1); CREATININE 0.9 mg/dL (0.6-1.0); GFR 62.3; POTASSIUM 3.4 mmol/L (3.5-5.1)
[2017-04-01 07:21] VITALS: BP 138/79
[2017-04-01] MEDS: INSULIN ASPART 300 UNITS/3 ML INSULN.PEN SQ SCH ×3 (08:00→18:27)
[2017-04-01] MEDS: DOCUSATE SODIUM 100 MG CAPSULE. PO SCH ×2 (09:23→21:26)
[2017-04-01] MEDS: SENNOSIDES/DOCUSATE 8.6/50MG TABLET. PO SCH ×2 (09:23→21:26)
[2017-04-01] MEDS: ASPIRIN ENTERIC COATED 325 MG TABLET.DR. PO SCH (09:23)
--- NOTE | 2017-04-01 10:09 | PDOC ---
Subjective: Subjective: Granddaughter offers no complaints. Objective: Objective: Per RN - no issues w/ PEG. Possible DC today if accepted to rehab. 2 stools charted 04/01. Vital Signs: Vital Signs Date Time Temp Pulse Resp B/P (MAP) Pulse Ox O2 Delivery O2 Flow Rate FiO2 04/01/17 08:00 Room Air 04/01/17 07:21 97.6 75 19 138/79 (98) 92 97.6 Labs: Laboratory Tests Test 03/31/17 11:20 03/31/17 16:54 03/31/17 20:36 04/01/17 03:40 Glucose (Fingerstick) 169 mg/dL 207 mg/dL 200 mg/dL White Blood Count 15.8 x10^3/uL Red Blood Count 4.45 x10^6/uL Hemoglobin 13.6 g/dL Hematocrit 40.5 % Mean Corpuscular Volume 91 fL Mean Corpuscular Hemoglobin 31 pg Mean Corpuscular Hemoglobin Concent 34 g/dL Red Cell Distribution Width 12.6 % Platelet Count 221 x10^3/uL Neutrophils (%) (Auto) 76 % Lymphocytes (%) (Auto) 11 % Monocytes (%) (Auto) 8 % Eosinophils (%) (Auto) 4 % Basophils (%) (Auto) 0 % Neutrophils # (Auto) 12.0 x10^3uL Lymphocytes # (Auto) 1.8 x10^3/uL Monocytes # (Auto) 1.2 x10^3/uL Eosinophils # (Auto) 0.6 x10^3/uL Basophils # (Auto) 0.1 x10^3/uL Sodium Level 138 mmol/L Potassium Level 3.4 mmol/L Chloride Level 102 mmol/L Carbon Dioxide Level 27 mmol/L Anion Gap 9 Blood Urea Nitrogen 25 mg/dL Creatinine 0.9 mg/dL Estimated GFR (Cockcroft-Gault) 62.3 Glucose Level 210 mg/dL Calcium Level 8.2 mg/dL Test 04/01/17 07:25 Glucose (Fingerstick) 237 mg/dL PE: GEN: NAD LUNGS: clear HEART: RRR ABD: PEG site w/ minimal dried blood similar to yesterday - no erythema/warmth, replaced abd binder, tube feeds running NEURO/PSYCH: briefly opens eyes when spoken to A/P: CVA, dysphagia s/p PEG -tube functioning Leukocytosis -- Awaiting rehab placement. Continue same per GI, follow-up PRN. JOSE MANDEL Apr 01, 2017 10:09
[2017-04-01 10:28] VITALS: BP 122/78
[2017-04-01] MEDS ORDERED: POTASSIUM CHLORIDE 20 MEQ/15 ML ORAL LIQUID. PEG ONE (11:15)
[2017-04-01] MEDS ORDERED: DEXTROSE 50% 25 GM / 50ML DISP.SYRIN. IV PRN (11:15)
[2017-04-01] MEDS: MORPHINE SULFATE 2 MG/ML DISP.SYRIN. IV PRN (11:23)
--- NOTE | 2017-04-01 13:26 | PDOC ---
PROGRESS NOTES Chief Complaint Chief Complaint CVA with left sided weakness hld htn Type 2 DM - uncontrolled Obesity Not compliant with meds leukocytosis, reactive? constipation hypokalemia plan: fu with gi, neuro on ASA, lipitor through PEG ON peg, DC ppn dc abx check CXR , ok add stool softner SW fu for SNF pat consulted recheck UA, UCX since leukocytosis, will do cxr, bcx if cont higher wbc or fever. replete K SSI, add levemir 10u qhs History of Present Illness History of Present Illness ROS: no chills, sob or chest pain. T 99.9 Pt speaks chukese, granddaughter at bedside and helping translate. Pt is laying in bed, not handling secretions well. PEG dry and clean, no erythema. Family meeting scheduled for today at 11 am with Pallative care to discuss senior care goals of care. Per GI, resume lovenox today, ok to feed through PEG could move left lower ext, cannot move since Wednesday higher WBC at 15 hyperglycemia Vitals Vitals Vital Signs Date Time Temp Pulse Resp B/P (MAP) Pulse Ox O2 Delivery O2 Flow Rate FiO2 04/01/17 11:53 17 93 Room Air 04/01/17 10:28 98.3 68 122/78 (93) 98.3 Physical Exam General: Alert, Cooperative, Other (arousable and following commands) Heart: Regular rate Lungs: Clear Abdomen: Soft, No tenderness Extremities: No clubbing, No cyanosis, No edema, Other (left arm paralyzed, left leg can move a little bit) Skin: No rashes, No breakdown Labs LABS Laboratory Tests Test 03/31/17 16:54 03/31/17 20:36 04/01/17 03:40 04/01/17 07:25 Glucose (Fingerstick) 207 mg/dL (70-99) 200 mg/dL (70-99) 237 mg/dL (70-99) White Blood Count 15.8 x10^3/uL (4.0-11.0) Red Blood Count 4.45 x10^6/uL (3.50-5.40) Hemoglobin 13.6 g/dL (12.0-15.5) Hematocrit 40.5 % (36.0-47.0) Mean Corpuscular Volume 91 fL (79-100) Mean Corpuscular Hemoglobin 31 pg (25-35) Mean Corpuscular Hemoglobin Concent 34 g/dL (31-37) Red Cell Distribution Width 12.6 % (11.5-14.5) Platelet Count 221 x10^3/uL (140-400) Neutrophils (%) (Auto) 76 % (31-73) Lymphocytes (%) (Auto) 11 % (24-48) Monocytes (%) (Auto) 8 % (0-9) Eosinophils (%) (Auto) 4 % (0-3) Basophils (%) (Auto) 0 % (0-3) Neutrophils # (Auto) 12.0 x10^3uL (1.8-7.7) Lymphocytes # (Auto) 1.8 x10^3/uL (1.0-4.8) Monocytes # (Auto) 1.2 x10^3/uL (0.0-1.1) Eosinophils # (Auto) 0.6 x10^3/uL (0.0-0.7) Basophils # (Auto) 0.1 x10^3/uL (0.0-0.2) Sodium Level 138 mmol/L (136-145) Potassium Level 3.4 mmol/L (3.5-5.1) Chloride Level 102 mmol/L (98-107) Carbon Dioxide Level 27 mmol/L (21-32) Anion Gap 9 (6-14) Blood Urea Nitrogen 25 mg/dL (7-20) Creatinine 0.9 mg/dL (0.6-1.0) Estimated GFR (Cockcroft-Gault) 62.3 Glucose Level 210 mg/dL (70-99) Calcium Level 8.2 mg/dL (8.5-10.1) Test 04/01/17 11:26 Glucose (Fingerstick) 251 mg/dL (70-99) Assessment and Plan Assessmemt and Plan Problems Medical Problems: (1) CVA (cerebral vascular accident) Status: Acute Problems: Comment Review of Relevant I have reviewed the following items tamie (where applicable) has been applied. Labs Laboratory Tests Test 03/30/17 17:00 03/30/17 20:43 03/31/17 03:05 03/31/17 07:17 Glucose (Fingerstick) 165 mg/dL (70-99) 180 mg/dL (70-99) 208 mg/dL (70-99) White Blood Count 12.9 x10^3/uL (4.0-11.0) Red Blood Count 4.39 x10^6/uL (3.50-5.40) Hemoglobin 13.5 g/dL (12.0-15.5) Hematocrit 40.7 % (36.0-47.0) Mean Corpuscular Volume 93 fL (79-100) Mean Corpuscular Hemoglobin 31 pg (25-35) Mean Corpuscular Hemoglobin Concent 33 g/dL (31-37) Red Cell Distribution Width 12.6 % (11.5-14.5) Platelet Count 185 x10^3/uL (140-400) Neutrophils (%) (Auto) 79 % (31-73) Lymphocytes (%) (Auto) 9 % (24-48) Monocytes (%) (Auto) 7 % (0-9) Eosinophils (%) (Auto) 6 % (0-3) Basophils (%) (Auto) 0 % (0-3) Neutrophils # (Auto) 10.2 x10^3uL (1.8-7.7) Lymphocytes # (Auto) 1.1 x10^3/uL (1.0-4.8) Monocytes # (Auto) 0.8 x10^3/uL (0.0-1.1) Eosinophils # (Auto) 0.7 x10^3/uL (0.0-0.7) Basophils # (Auto) 0.1 x10^3/uL (0.0-0.2) Sodium Level 137 mmol/L (136-145) Potassium Level 3.5 mmol/L (3.5-5.1) Chloride Level 101 mmol/L (98-107) Carbon Dioxide Level 25 mmol/L (21-32) Anion Gap 11 (6-14) Blood Urea Nitrogen 22 mg/dL (7-20) Creatinine 0.8 mg/dL (0.6-1.0) Estimated GFR (Cockcroft-Gault) 71.3 Glucose Level 194 mg/dL (70-99) Calcium Level 8.6 mg/dL (8.5-10.1) Test 03/31/17 11:20 03/31/17 16:54 03/31/17 20:36 04/01/17 03:40 Glucose (Fingerstick) 169 mg/dL (70-99) 207 mg/dL (70-99) 200 mg/dL (70-99) White Blood Count 15.8 x10^3/uL (4.0-11.0) Red Blood Count 4.45 x10^6/uL (3.50-5.40) Hemoglobin 13.6 g/dL (12.0-15.5) Hematocrit 40.5 % (36.0-47.0) Mean Corpuscular Volume 91 fL (79-100) Mean Corpuscular Hemoglobin 31 pg (25-35) Mean Corpuscular Hemoglobin Concent 34 g/dL (31-37) Red Cell Distribution Width 12.6 % (11.5-14.5) Platelet Count 221 x10^3/uL (140-400) Neutrophils (%) (Auto) 76 % (31-73) Lymphocytes (%) (Auto) 11 % (24-48) Monocytes (%) (Auto) 8 % (0-9) Eosinophils (%) (Auto) 4 % (0-3) Basophils (%) (Auto) 0 % (0-3) Neutrophils # (Auto) 12.0 x10^3uL (1.8-7.7) Lymphocytes # (Auto) 1.8 x10^3/uL (1.0-4.8) Monocytes # (Auto) 1.2 x10^3/uL (0.0-1.1) Eosinophils # (Auto) 0.6 x10^3/uL (0.0-0.7) Basophils # (Auto) 0.1 x10^3/uL (0.0-0.2) Sodium Level 138 mmol/L (136-145) Potassium Level 3.4 mmol/L (3.5-5.1) Chloride Level 102 mmol/L (98-107) Carbon Dioxide Level 27 mmol/L (21-32) Anion Gap 9 (6-14) Blood Urea Nitrogen 25 mg/dL (7-20) Creatinine 0.9 mg/dL (0.6-1.0) Estimated GFR (Cockcroft-Gault) 62.3 Glucose Level 210 mg/dL (70-99) Calcium Level 8.2 mg/dL (8.5-10.1) Test 04/01/17 07:25 04/01/17 11:26 Glucose (Fingerstick) 237 mg/dL (70-99) 251 mg/dL (70-99) Laboratory Tests Test 03/31/17 16:54 03/31/17 20:36 04/01/17 03:40 04/01/17 07:25 Glucose (Fingerstick) 207 mg/dL (70-99) 200 mg/dL (70-99) 237 mg/dL (70-99) White Blood Count 15.8 x10^3/uL (4.0-11.0) Red Blood Count 4.45 x10^6/uL (3.50-5.40) Hemoglobin 13.6 g/dL (12.0-15.5) Hematocrit 40.5 % (36.0-47.0) Mean Corpuscular Volume 91 fL (79-100) Mean Corpuscular Hemoglobin 31 pg (25-35) Mean Corpuscular Hemoglobin Concent 34 g/dL (31-37) Red Cell Distribution Width 12.6 % (11.5-14.5) Platelet Count 221 x10^3/uL (140-400) Neutrophils (%) (Auto) 76 % (31-73) Lymphocytes (%) (Auto) 11 % (24-48) Monocytes (%) (Auto) 8 % (0-9) Eosinophils (%) (Auto) 4 % (0-3) Basophils (%) (Auto) 0 % (0-3) Neutrophils # (Auto) 12.0 x10^3uL (1.8-7.7) Lymphocytes # (Auto) 1.8 x10^3/uL (1.0-4.8) Monocytes # (Auto) 1.2 x10^3/uL (0.0-1.1) Eosinophils # (Auto) 0.6 x10^3/uL (0.0-0.7) Basophils # (Auto) 0.1 x10^3/uL (0.0-0.2) Sodium Level 138 mmol/L (136-145) Potassium Level 3.4 mmol/L (3.5-5.1) Chloride Level 102 mmol/L (98-107) Carbon Dioxide Level 27 mmol/L (21-32) Anion Gap 9 (6-14) Blood Urea Nitrogen 25 mg/dL (7-20) Creatinine 0.9 mg/dL (0.6-1.0) Estimated GFR (Cockcroft-Gault) 62.3 Glucose Level 210 mg/dL (70-99) Calcium Level 8.2 mg/dL (8.5-10.1) Test 04/01/17 11:26 Glucose (Fingerstick) 251 mg/dL (70-99) Medications Current Medications Insulin Aspart (NovoLOG) 0-5 UNITS TIDWMEALS SQ Last administered on 03/31/17 17:31; Start 03/24/17 at 17:00; Stop 04/01/17 at 09:20; Status DC Dextrose (Dextrose 50%-Water Syringe) 12.5 gm PRN Q15MIN PRN IV SEE COMMENTS; Start 03/24/17 at 12:30 Ceftriaxone Sodium 50 ml @ 100 mls/hr 1X ONCE IV Last administered on 13:33; Start 03/24/17 at 13:30; Stop 03/24/17 at 13:59; Status DC Ceftriaxone Sodium 1 gm/ Sodium Chloride 50 ml @ 100 mls/hr Q24H IV Last administered on 03/30/17 13:23; Start 03/25/17 at 14:00; Stop 03/31/17 at 14:28 ; Status DC Ondansetron HCl (Zofran) 4 mg PRN Q8HRS PRN IV NAUSEA/VOMITING; Start 03/24/17 at 13:30; Stop 03/25/17 at 13:29; Status DC Sodium Chloride 1,000 ml @ 125 mls/hr Q8H IV Last administered on 03/24/17 13 :37; Start 03/24/17 at 13:45; Stop 03/25/17 at 08:53; Status DC Aspirin (Aspirin) 300 mg 1X ONCE NE Last administered on 03/24/17 13:45; Start 03/24/17 at 13:45; Stop 03/24/17 at 13:46; Status DC Sodium Chloride (Normal Saline Flush) 3 ml QSHIFT PRN IV AFTER MEDS AND BLOOD DRAWS; Start 03/24/17 at 13:45 Sodium Chloride 1,000 ml @ 100 mls/hr Q10H IV Last administered on 03/25/17 01:22; Start 03/24/17 at 14:00; Stop 03/25/17 at 08:53; Status DC Aspirin (Ecotrin) 325 mg [id number] PO Last administered on 04/01/17 09:23; Start 03/25/17 at 08:00 Atorvastatin Calcium (Lipitor) 20 mg QHS PO Last administered on 03/31/17 20: 33; Start 03/24/17 at 21:00 Labetalol HCl (Normodyne) 10 mg PRN Q10MIN PRN IV HYPERTENSION, SEE COMMENTS Last administered on 03/25/17 20:08; Start 03/24/17 at 13:45 Acetaminophen (Tylenol) 650 mg PRN Q6HRS PRN PO FEVER; Start 03/24/17 at 13:45 ; Stop 03/29/17 at 21:13; Status DC Acetaminophen (Acetaminophen Supp) 650 mg PRN Q6HRS PRN NE FEVER Last administered on 03/28/17 21:42; Start 03/24/17 at 13:45; Stop 03/31/17 at 14:28 ; Status DC Enoxaparin Sodium (Lovenox 40mg Syringe) 40 mg Q24H SQ Last administered on 15:26; Start 03/24/17 at 15:00; Stop 03/29/17 at 08:44; Status DC Iohexol (Omnipaque 350 Mg/ml) 60 ml 1X ONCE IV Last administered on 03/24/17 16:25; Start 03/24/17 at 16:15; Stop 03/24/17 at 16:20; Status DC Info (Do NOT chart on this entry -- for MONITORING) 1 each PRN DAILY PRN MC SEE COMMENTS; Start 03/24/17 at 16:30; Stop 03/26/17 at 16:29; Status DC Ondansetron HCl (Zofran) 4 mg PRN Q6HRS PRN IV NAUSEA/VOMITING; Start 03/24/17 at 16:30 Amino Acids/ Glycerin/ Electrolytes 1,000 ml @ 80 mls/hr [id number] IV Last administered on 03/31/17 03:34; Start 03/25/17 at 09:30; Stop 03/31/17 at 12:13 ; Status DC Barium Sulfate (Varibar Thin Liquid Apple) 148 gm 1X ONCE PO Last administered on 03/26/17 13:30; Start 03/26/17 at 13:30; Stop 03/26/17 at 13:31 ; Status DC Ringer's Solution 1,000 ml @ 50 mls/hr Q20H IV ; Start 03/29/17 at 07:00; Stop 03/29/17 at 07:28; Status DC Diphenhydramine HCl (Benadryl) 25 mg PRN Q6HRS PRN IVP ITCHING Last administered on 04/01/17 02:35; Start 03/26/17 at 23:00 Potassium Chloride 50 ml @ 50 mls/hr Q1H IV ; Start 03/27/17 at 13:00; Stop at 14:59; Status UNV Potassium Chloride 100 ml @ 100 mls/hr Q1H IV Last administered on 03/27/17 19:45; Start 03/27/17 at 13:00; Stop 03/27/17 at 16:59; Status DC Ringer's Solution 1,000 ml @ 50 mls/hr Q20H IV ; Start 03/29/17 at 13:00; Stop 03/29/17 at 19:13; Status DC Midazolam HCl (Versed) 2 mg PRN 1X PRN IV PRIOR TO PROCEDURE; Start 03/29/17 at 12:15; Stop 03/29/17 at 15:49; Status DC Fentanyl Citrate (Fentanyl 2ml Vial) 25 mcg PRN Q5MIN PRN IV X 2 DOSES FOR PAIN ; Start 03/29/17 at 12:15; Stop 03/29/17 at 15:49; Status DC Fentanyl Citrate (Fentanyl 2ml Vial) 50 mcg PRN Q5MIN PRN IV X 2 DOSES FOR PAIN ; Start 03/29/17 at 12:15; Stop 03/29/17 at 15:49; Status DC Ringer's Solution 1,000 ml @ 125 mls/hr Q8H IV Last administered on 03/29/17 12:38; Start 03/29/17 at 12:07; Stop 03/29/17 at 17:31; Status DC Lidocaine HCl 2 ml 1X PRN PRN ID IV START; Start 03/29/17 at 12:15; Stop at 12:14; Status DC Propofol 20 ml @ As Directed STK-MED ONCE IV ; Start 03/29/17 at 12:29; Stop at 12:30; Status DC Morphine Sulfate 1 mg PRN Q2HR PRN IV PAIN Last administered on 04/01/17 11:23 ; Start 03/29/17 at 16:15 Morphine Sulfate 2 mg PRN Q2HR PRN IV PAIN Last administered on 03/29/17 22:06 ; Start 03/29/17 at 16:15 Acetaminophen (Tylenol) 650 mg PRN Q6HRS PRN PEG MILD PAIN / TEMP Last administered on 03/31/17 20:33; Start 03/29/17 at 21:15 Senna/Docusate Sodium (Senna Plus) 1 tab BID PO Last administered on 04/01/17 09:23; Start 03/31/17 at 21:00 Docusate Sodium (Colace) 100 mg BID PO Last administered on 04/01/17 09:23; Start 03/31/17 at 21:00 Magnesium Hydroxide (Milk Of Magnesia) 2,400 mg PRN Q12HR PRN PO CONSTIPATION; Start 03/31/17 at 12:15 Potassium Chloride (KCl Oral Soln) 40 meq 1X ONCE PEG Last administered on 11:30; Start 04/01/17 at 11:15; Stop 04/01/17 at 11:16; Status DC Insulin Aspart (NovoLOG) 0-9 UNITS TIDWMEALS SQ Last administered on 04/01/17 12:53; Start 04/01/17 at 12:00 Dextrose (Dextrose 50%-Water Syringe) 12.5 gm PRN Q15MIN PRN IV SEE COMMENTS; Start 04/01/17 at 11:15; Status UNV Active Scripts Active Reported Atorvastatin Calcium 40 Mg Tablet 1 Tab PO DAILY Losartan Potassium 100 Mg Tablet 100 Mg PO DAILY Aspir 81 (Aspirin) 81 Mg Tablet. 1 Tab PO DAILY Vitals/I & O Vital Sign - Last 24 Hours 03/31/17 03/31/17 03/31/17 03/31/17 14:47 19:47 20:02 23:39 Temp 98.0 98.2 97.5 98.0 98.2 97.5 Pulse 79 87 76 Resp 20 18 18 B/P (MAP) 108/43 (64) 128/49 (75) 99/46 (63) Pulse Ox 94 92 93 O2 Delivery Room Air Room Air Room Air Room Air 04/01/17 04/01/17 04/01/17 04/01/17 03:21 07:21 08:00 10:28 Temp 98.2 97.6 98.3 98.2 97.6 98.3 Pulse 60 75 68 Resp 18 19 20 B/P (MAP) 144/62 (89) 138/79 (98) 122/78 (93) Pulse Ox 93 92 93 O2 Delivery Room Air Room Air Room Air Room Air 04/01/17 04/01/17 11:23 11:53 Resp 16 17 Pulse Ox 93 93 O2 Delivery Room Air Room Air Intake and Output 04/01/17 04/01/17 04/02/17 15:00 23:00 07:00 Intake Total 240 ml Balance 240 ml ANA WOODSON MD Apr 01, 2017 13:26
[2017-04-01 14:26] VITALS: BP 145/75
--- NOTE | 2017-04-01 16:18 | PDOC ---
PROGRESS NOTES Assessment Assessment Subacute right BG, goldsmith radiata and right hemisphere infracts. Metabolic encephalopathy. Left side hemiplegia. 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 DM HTN HLD Obesity. UTI RECOMMENDATIONS/PLAN: Continue ASA 325 mg daily. Continue Lipitor HS. Vascular Surgery consulted and no indication for surgical intervention. OT/PT Rehab. Discussed with her granddaughter at bedside. Past Medical History Cardiovascular: HTN CENTRAL NERVOUS SYSTEM: Other (headaches) GI: Other (she has been having some abdominal pain) Endocrine: Diabetes Past Surgical History Family History Hypertension Social History , used to smoke and uses alcohol but none in the last several years. ALLERGY: Reviewed. MEDICATIONS: Refer to MAR REVIEW OF SYSTEMS: Constitutional: No malnutrition, weight loss, cachexia. Head: No traumatic brain or head injury. Skin: No edema, or rash. Ear: No infection. Eyes: No vision loss, or diplopia. Nose: No bleeding or purulent discharges. Hearing: No hearing decrease. Neck: No injury. Breast: No history of cancer, masses, or discharges. Cardiac: HTN, HLD Pulmonary: No CPOD. GI: No GI Ulcer, GI bleeding Urinary/genital: UTI. Endocrine: Diabetes Mellitus, obesity. Skeletomuscular: No muscular atrophy, deformity. Neurological: see HP. Psychiatric: Denies drug use/abuse. Otherwise, not [id number] review of systems. PHYSICAL EXAMINATION: General appearance in subacute distress. HEENT: Normocephalic and nontraumatic. Eyes, nose, ears, and throat are unremarkable. Neck is supple. No lymphadenopathy. No No Crepitus. Cardiovascular: S1, S2, regular rate and rhythm. Pulmonary: No rails heard to auscultation bilaterally. Abdomen: Bowel sounds are positive. Extremities: No rash, lesions, or edema. NEUROLOGICAL EXAMINATION: Sleepiness, but arousable. Able to follow a few commands with language help of her grand-daughter. Not oriented to time, place but knows her family members. PERRL. EOMI but slow. Gaze deviation to right side. CN: left VII palsy. Muscle tone: within normal. Muscle strength: 0-1 left UE, 2 left LE, 5- right side. DTR: 1+ Left UE and LE Plantar reflex: left side extensor response, right side neutral response. Gait: Unable to walk. Sensory exam: decreased in left UE and LE. No acute cerebellar signs elicited. F-T-N test not performed due to not follow commands. Objective Objective Vital Signs Date Time Temp Pulse Resp B/P (MAP) Pulse Ox O2 Delivery O2 Flow Rate FiO2 04/01/17 14:26 98.5 73 22 145/75 (98) 94 Room Air 98.5 Intake and Output 04/02/17 07:00 Intake Total 240 ml Balance 240 ml Intake Oral 0 ml Tube Feeding 240 ml # Voids 2 Vitals Signs Vitals VS - Last 72 Hours, by Label Date Time Temp Pulse Resp B/P (MAP) Pulse Ox O2 Delivery O2 Flow Rate FiO2 04/01/17 14:26 98.5 73 22 145/75 (98) 94 Room Air 98.5 04/01/17 11:53 17 93 Room Air 04/01/17 11:23 16 93 Room Air 04/01/17 10:28 98.3 68 20 122/78 (93) 93 Room Air 98.3 04/01/17 08:00 Room Air 04/01/17 07:21 97.6 75 19 138/79 (98) 92 Room Air 97.6 04/01/17 03:21 98.2 60 18 144/62 (89) 93 Room Air 98.2 03/31/17 23:39 97.5 76 18 99/46 (63) 93 Room Air 97.5 03/31/17 20:02 Room Air 03/31/17 19:47 98.2 87 18 128/49 (75) 92 Room Air 98.2 03/31/17 14:47 98.0 79 20 108/43 (64) 94 Room Air 98.0 03/31/17 10:37 99.9 72 19 108/47 (67) 95 Room Air 99.9 03/31/17 07:35 Room Air 03/31/17 07:09 98.6 69 18 107/36 (59) 94 Room Air 98.6 Laboratory Laboratory Laboratory Tests Test 03/31/17 16:54 03/31/17 20:36 04/01/17 03:40 04/01/17 07:25 Glucose (Fingerstick) 207 mg/dL (70-99) 200 mg/dL (70-99) 237 mg/dL (70-99) White Blood Count 15.8 x10^3/uL (4.0-11.0) Red Blood Count 4.45 x10^6/uL (3.50-5.40) Hemoglobin 13.6 g/dL (12.0-15.5) Hematocrit 40.5 % (36.0-47.0) Mean Corpuscular Volume 91 fL (79-100) Mean Corpuscular Hemoglobin 31 pg (25-35) Mean Corpuscular Hemoglobin Concent 34 g/dL (31-37) Red Cell Distribution Width 12.6 % (11.5-14.5) Platelet Count 221 x10^3/uL (140-400) Neutrophils (%) (Auto) 76 % (31-73) Lymphocytes (%) (Auto) 11 % (24-48) Monocytes (%) (Auto) 8 % (0-9) Eosinophils (%) (Auto) 4 % (0-3) Basophils (%) (Auto) 0 % (0-3) Neutrophils # (Auto) 12.0 x10^3uL (1.8-7.7) Lymphocytes # (Auto) 1.8 x10^3/uL (1.0-4.8) Monocytes # (Auto) 1.2 x10^3/uL (0.0-1.1) Eosinophils # (Auto) 0.6 x10^3/uL (0.0-0.7) Basophils # (Auto) 0.1 x10^3/uL (0.0-0.2) Sodium Level 138 mmol/L (136-145) Potassium Level 3.4 mmol/L (3.5-5.1) Chloride Level 102 mmol/L (98-107) Carbon Dioxide Level 27 mmol/L (21-32) Anion Gap 9 (6-14) Blood Urea Nitrogen 25 mg/dL (7-20) Creatinine 0.9 mg/dL (0.6-1.0) Estimated GFR (Cockcroft-Gault) 62.3 Glucose Level 210 mg/dL (70-99) Calcium Level 8.2 mg/dL (8.5-10.1) Test 04/01/17 11:26 Glucose (Fingerstick) 251 mg/dL (70-99) Medication Medications Current Medications Dextrose (Dextrose 50%-Water Syringe) 12.5 gm PRN Q15MIN PRN IV SEE COMMENTS; Start 04/01/17 at 11:15; Status UNV Docusate Sodium (Colace) 100 mg BID PO Last administered on 04/01/17 09:23; Start 03/31/17 at 21:00 Insulin Aspart (NovoLOG) 0-9 UNITS TIDWMEALS SQ Last administered on 04/01/17 12:53; Start 04/01/17 at 12:00 Insulin Detemir (Levemir) 10 units QHS SQ ; Start 04/01/17 at 21:00 Potassium Chloride (KCl Oral Soln) 40 meq 1X ONCE PEG Last administered on 11:30; Start 04/01/17 at 11:15; Stop 04/01/17 at 11:16; Status DC Senna/Docusate Sodium (Senna Plus) 1 tab BID PO Last administered on 04/01/17 09:23; Start 03/31/17 at 21:00 Comment Review of Relevant I have reviewed the following items tamie (where applicable) has been applied. REEMA CARTER MD Apr 01, 2017 16:18
[2017-04-01] MEDS: ACETAMINOPHEN 650 MG/20.3 ML SOLUTION. PEG PRN (18:19)
[2017-04-01 19:00] VITALS: BP 131/61
[2017-04-01] MEDS ORDERED: INSULIN DETEMIR 300 UNITS/3 ML INSULN.PEN. SQ SCH (21:00)
[2017-04-01] MEDS: ATORVASTATIN CALCIUM 20 MG TABLET PO SCH (21:26)
[2017-04-01 22:43] VITALS: BP 115/55
[2017-04-02 02:52] VITALS: BP 108/56
[2017-04-02 04:41] LABS: BASO # 0.1 x10^3/uL (0.0-0.2); BASO % 1 % (0-3); EOS % 5 % (0-3); HEMATOCRIT 41.9 % (36.0-47.0); HEMOGLOBIN 13.8 g/dL (12.0-15.5); LYMPH # 2.1 x10^3/uL (1.0-4.8); LYMPH % 15 % (24-48); MEAN CORPUSCULAR HEMOGLOBIN 30 pg (25-35); MEAN CORPUSCULAR HGB CONC 33 g/dL (31-37); MEAN CORPUSCULAR VOLUME 92 fL (79-100); MONO % 8 % (0-9); NEUT % 71 % (31-73); PLATELET COUNT 236 x10^3/uL (140-400); RED BLOOD COUNT 4.55 x10^6/uL (3.50-5.40); RED CELL DISTRIBUTION WIDTH 13.2 % (11.5-14.5)
[2017-04-02 05:01] LABS: CREATININE 0.9 mg/dL (0.6-1.0); GFR 62.3; POTASSIUM 3.9 mmol/L (3.5-5.1)
[2017-04-02 07:00] VITALS: BP 186/80
[2017-04-02] MEDS: SENNOSIDES/DOCUSATE 8.6/50MG TABLET. PO SCH ×2 (08:05→21:15)
[2017-04-02] MEDS: DOCUSATE SODIUM 100 MG CAPSULE. PO SCH ×2 (08:06→21:12)
[2017-04-02] MEDS: ASPIRIN ENTERIC COATED 325 MG TABLET.DR. PO SCH (08:06)
[2017-04-02] MEDS: INSULIN ASPART 300 UNITS/3 ML INSULN.PEN SQ SCH ×5 (08:19→18:25)
--- NOTE | 2017-04-02 09:29 | PDOC ---
Objective: Objective: No issues w/ PEG per RN. Vital Signs: Vital Signs Date Time Temp Pulse Resp B/P (MAP) Pulse Ox O2 Delivery O2 Flow Rate FiO2 04/02/17 08:22 Room Air 04/02/17 07:00 99.5 66 20 186/80 (115) 96 99.5 04/01/17 20:00 2.0 Labs: Laboratory Tests Test 04/01/17 11:26 04/01/17 18:07 04/01/17 21:30 04/02/17 04:07 Glucose (Fingerstick) 251 mg/dL 239 mg/dL 197 mg/dL White Blood Count 14.0 x10^3/uL Red Blood Count 4.55 x10^6/uL Hemoglobin 13.8 g/dL Hematocrit 41.9 % Mean Corpuscular Volume 92 fL Mean Corpuscular Hemoglobin 30 pg Mean Corpuscular Hemoglobin Concent 33 g/dL Red Cell Distribution Width 13.2 % Platelet Count 236 x10^3/uL Neutrophils (%) (Auto) 71 % Lymphocytes (%) (Auto) 15 % Monocytes (%) (Auto) 8 % Eosinophils (%) (Auto) 5 % Basophils (%) (Auto) 1 % Neutrophils # (Auto) 9.9 x10^3uL Lymphocytes # (Auto) 2.1 x10^3/uL Monocytes # (Auto) 1.1 x10^3/uL Eosinophils # (Auto) 0.7 x10^3/uL Basophils # (Auto) 0.1 x10^3/uL Sodium Level 138 mmol/L Potassium Level 3.9 mmol/L Chloride Level 103 mmol/L Carbon Dioxide Level 28 mmol/L Anion Gap 7 Blood Urea Nitrogen 23 mg/dL Creatinine 0.9 mg/dL Estimated GFR (Cockcroft-Gault) 62.3 Glucose Level 229 mg/dL Calcium Level 8.0 mg/dL Test 04/02/17 06:03 Glucose (Fingerstick) 203 mg/dL PE: GEN: NAD LUNGS: clear HEART: RRR ABD: BS+, soft, PEG site clean/dry NEURO/PSYCH: eyes closed A/P: CVA, dysphagia s/p PEG -tube functioning Leukocytosis -- Awaiting DC plans. Would replace abd binder. JOSE MANDEL Apr 02, 2017 09:29
[2017-04-02] MEDS: SCOPOLAMINE 1.5MG PATCH. TD SCH (10:22)
--- NOTE | 2017-04-02 10:55 | PDOC ---
PROGRESS NOTES Chief Complaint Chief Complaint CVA with left sided weakness hld htn Type 2 DM - uncontrolled Obesity Not compliant with meds leukocytosis, reactive? constipation hypokalemia plan: fu with gi, neuro on ASA, lipitor through PEG ON peg, DC ppn dc abx add stool softner SW fu for SNF, waiting pat consulted recheck UA, UCX since leukocytosis, repeat CXR replete K SSI, add levemir 15u qhs, aspart 5u tid add scopolamine patch History of Present Illness History of Present Illness ROS: no chills, sob or chest pain. T 99.9 Pt speaks chukese, granddaughter at bedside and helping translate. Pt is laying in bed, not handling secretions well. PEG dry and clean, no erythema. Family meeting scheduled for today at 11 am with Pallative care to discuss fci goals of care. Per GI, resume lovenox today, ok to feed through PEG could move left lower ext, cannot move since esda high WBC at 15, down to 14 hyperglycemia Vitals Vitals Vital Signs Date Time Temp Pulse Resp B/P (MAP) Pulse Ox O2 Delivery O2 Flow Rate FiO2 04/02/17 08:22 Room Air 04/02/17 07:00 99.5 66 20 186/80 (115) 96 99.5 04/01/17 20:00 2.0 Physical Exam General: Alert, Cooperative, Other (arousable and following commands) Heart: Regular rate Lungs: Clear Abdomen: Soft, No tenderness Extremities: No clubbing, No cyanosis, No edema, Other (left arm paralyzed, left leg can move a little bit) Skin: No rashes, No breakdown Labs LABS Laboratory Tests Test 04/01/17 11:26 04/01/17 18:07 04/01/17 21:30 04/02/17 04:07 Glucose (Fingerstick) 251 mg/dL (70-99) 239 mg/dL (70-99) 197 mg/dL (70-99) White Blood Count 14.0 x10^3/uL (4.0-11.0) Red Blood Count 4.55 x10^6/uL (3.50-5.40) Hemoglobin 13.8 g/dL (12.0-15.5) Hematocrit 41.9 % (36.0-47.0) Mean Corpuscular Volume 92 fL (79-100) Mean Corpuscular Hemoglobin 30 pg (25-35) Mean Corpuscular Hemoglobin Concent 33 g/dL (31-37) Red Cell Distribution Width 13.2 % (11.5-14.5) Platelet Count 236 x10^3/uL (140-400) Neutrophils (%) (Auto) 71 % (31-73) Lymphocytes (%) (Auto) 15 % (24-48) Monocytes (%) (Auto) 8 % (0-9) Eosinophils (%) (Auto) 5 % (0-3) Basophils (%) (Auto) 1 % (0-3) Neutrophils # (Auto) 9.9 x10^3uL (1.8-7.7) Lymphocytes # (Auto) 2.1 x10^3/uL (1.0-4.8) Monocytes # (Auto) 1.1 x10^3/uL (0.0-1.1) Eosinophils # (Auto) 0.7 x10^3/uL (0.0-0.7) Basophils # (Auto) 0.1 x10^3/uL (0.0-0.2) Sodium Level 138 mmol/L (136-145) Potassium Level 3.9 mmol/L (3.5-5.1) Chloride Level 103 mmol/L (98-107) Carbon Dioxide Level 28 mmol/L (21-32) Anion Gap 7 (6-14) Blood Urea Nitrogen 23 mg/dL (7-20) Creatinine 0.9 mg/dL (0.6-1.0) Estimated GFR (Cockcroft-Gault) 62.3 Glucose Level 229 mg/dL (70-99) Calcium Level 8.0 mg/dL (8.5-10.1) Test 04/02/17 06:03 Glucose (Fingerstick) 203 mg/dL (70-99) Assessment and Plan Assessmemt and Plan Problems Medical Problems: (1) CVA (cerebral vascular accident) Status: Acute Problems: Comment Review of Relevant I have reviewed the following items tamie (where applicable) has been applied. Labs Laboratory Tests Test 03/31/17 11:20 03/31/17 16:54 03/31/17 20:36 04/01/17 03:40 Glucose (Fingerstick) 169 mg/dL (70-99) 207 mg/dL (70-99) 200 mg/dL (70-99) White Blood Count 15.8 x10^3/uL (4.0-11.0) Red Blood Count 4.45 x10^6/uL (3.50-5.40) Hemoglobin 13.6 g/dL (12.0-15.5) Hematocrit 40.5 % (36.0-47.0) Mean Corpuscular Volume 91 fL (79-100) Mean Corpuscular Hemoglobin 31 pg (25-35) Mean Corpuscular Hemoglobin Concent 34 g/dL (31-37) Red Cell Distribution Width 12.6 % (11.5-14.5) Platelet Count 221 x10^3/uL (140-400) Neutrophils (%) (Auto) 76 % (31-73) Lymphocytes (%) (Auto) 11 % (24-48) Monocytes (%) (Auto) 8 % (0-9) Eosinophils (%) (Auto) 4 % (0-3) Basophils (%) (Auto) 0 % (0-3) Neutrophils # (Auto) 12.0 x10^3uL (1.8-7.7) Lymphocytes # (Auto) 1.8 x10^3/uL (1.0-4.8) Monocytes # (Auto) 1.2 x10^3/uL (0.0-1.1) Eosinophils # (Auto) 0.6 x10^3/uL (0.0-0.7) Basophils # (Auto) 0.1 x10^3/uL (0.0-0.2) Sodium Level 138 mmol/L (136-145) Potassium Level 3.4 mmol/L (3.5-5.1) Chloride Level 102 mmol/L (98-107) Carbon Dioxide Level 27 mmol/L (21-32) Anion Gap 9 (6-14) Blood Urea Nitrogen 25 mg/dL (7-20) Creatinine 0.9 mg/dL (0.6-1.0) Estimated GFR (Cockcroft-Gault) 62.3 Glucose Level 210 mg/dL (70-99) Calcium Level 8.2 mg/dL (8.5-10.1) Test 04/01/17 07:25 04/01/17 11:26 04/01/17 18:07 04/01/17 21:30 Glucose (Fingerstick) 237 mg/dL (70-99) 251 mg/dL (70-99) 239 mg/dL (70-99) 197 mg/dL (70-99) Test 04/02/17 04:07 04/02/17 06:03 White Blood Count 14.0 x10^3/uL (4.0-11.0) Red Blood Count 4.55 x10^6/uL (3.50-5.40) Hemoglobin 13.8 g/dL (12.0-15.5) Hematocrit 41.9 % (36.0-47.0) Mean Corpuscular Volume 92 fL (79-100) Mean Corpuscular Hemoglobin 30 pg (25-35) Mean Corpuscular Hemoglobin Concent 33 g/dL (31-37) Red Cell Distribution Width 13.2 % (11.5-14.5) Platelet Count 236 x10^3/uL (140-400) Neutrophils (%) (Auto) 71 % (31-73) Lymphocytes (%) (Auto) 15 % (24-48) Monocytes (%) (Auto) 8 % (0-9) Eosinophils (%) (Auto) 5 % (0-3) Basophils (%) (Auto) 1 % (0-3) Neutrophils # (Auto) 9.9 x10^3uL (1.8-7.7) Lymphocytes # (Auto) 2.1 x10^3/uL (1.0-4.8) Monocytes # (Auto) 1.1 x10^3/uL (0.0-1.1) Eosinophils # (Auto) 0.7 x10^3/uL (0.0-0.7) Basophils # (Auto) 0.1 x10^3/uL (0.0-0.2) Sodium Level 138 mmol/L (136-145) Potassium Level 3.9 mmol/L (3.5-5.1) Chloride Level 103 mmol/L (98-107) Carbon Dioxide Level 28 mmol/L (21-32) Anion Gap 7 (6-14) Blood Urea Nitrogen 23 mg/dL (7-20) Creatinine 0.9 mg/dL (0.6-1.0) Estimated GFR (Cockcroft-Gault) 62.3 Glucose Level 229 mg/dL (70-99) Calcium Level 8.0 mg/dL (8.5-10.1) Glucose (Fingerstick) 203 mg/dL (70-99) Laboratory Tests Test 04/01/17 11:26 04/01/17 18:07 04/01/17 21:30 04/02/17 04:07 Glucose (Fingerstick) 251 mg/dL (70-99) 239 mg/dL (70-99) 197 mg/dL (70-99) White Blood Count 14.0 x10^3/uL (4.0-11.0) Red Blood Count 4.55 x10^6/uL (3.50-5.40) Hemoglobin 13.8 g/dL (12.0-15.5) Hematocrit 41.9 % (36.0-47.0) Mean Corpuscular Volume 92 fL (79-100) Mean Corpuscular Hemoglobin 30 pg (25-35) Mean Corpuscular Hemoglobin Concent 33 g/dL (31-37) Red Cell Distribution Width 13.2 % (11.5-14.5) Platelet Count 236 x10^3/uL (140-400) Neutrophils (%) (Auto) 71 % (31-73) Lymphocytes (%) (Auto) 15 % (24-48) Monocytes (%) (Auto) 8 % (0-9) Eosinophils (%) (Auto) 5 % (0-3) Basophils (%) (Auto) 1 % (0-3) Neutrophils # (Auto) 9.9 x10^3uL (1.8-7.7) Lymphocytes # (Auto) 2.1 x10^3/uL (1.0-4.8) Monocytes # (Auto) 1.1 x10^3/uL (0.0-1.1) Eosinophils # (Auto) 0.7 x10^3/uL (0.0-0.7) Basophils # (Auto) 0.1 x10^3/uL (0.0-0.2) Sodium Level 138 mmol/L (136-145) Potassium Level 3.9 mmol/L (3.5-5.1) Chloride Level 103 mmol/L (98-107) Carbon Dioxide Level 28 mmol/L (21-32) Anion Gap 7 (6-14) Blood Urea Nitrogen 23 mg/dL (7-20) Creatinine 0.9 mg/dL (0.6-1.0) Estimated GFR (Cockcroft-Gault) 62.3 Glucose Level 229 mg/dL (70-99) Calcium Level 8.0 mg/dL (8.5-10.1) Test 04/02/17 06:03 Glucose (Fingerstick) 203 mg/dL (70-99) Medications Current Medications Insulin Aspart (NovoLOG) 0-5 UNITS TIDWMEALS SQ Last administered on 03/31/17 17:31; Start 03/24/17 at 17:00; Stop 04/01/17 at 09:20; Status DC Dextrose (Dextrose 50%-Water Syringe) 12.5 gm PRN Q15MIN PRN IV SEE COMMENTS; Start 03/24/17 at 12:30 Ceftriaxone Sodium 50 ml @ 100 mls/hr 1X ONCE IV Last administered on 13:33; Start 03/24/17 at 13:30; Stop 03/24/17 at 13:59; Status DC Ceftriaxone Sodium 1 gm/ Sodium Chloride 50 ml @ 100 mls/hr Q24H IV Last administered on 03/30/17 13:23; Start 03/25/17 at 14:00; Stop 03/31/17 at 14:28 ; Status DC Ondansetron HCl (Zofran) 4 mg PRN Q8HRS PRN IV NAUSEA/VOMITING; Start 03/24/17 at 13:30; Stop 03/25/17 at 13:29; Status DC Sodium Chloride 1,000 ml @ 125 mls/hr Q8H IV Last administered on 03/24/17 13 :37; Start 03/24/17 at 13:45; Stop 03/25/17 at 08:53; Status DC Aspirin (Aspirin) 300 mg 1X ONCE DE Last administered on 03/24/17 13:45; Start 03/24/17 at 13:45; Stop 03/24/17 at 13:46; Status DC Sodium Chloride (Normal Saline Flush) 3 ml QSHIFT PRN IV AFTER MEDS AND BLOOD DRAWS; Start 03/24/17 at 13:45 Sodium Chloride 1,000 ml @ 100 mls/hr Q10H IV Last administered on 03/25/17 01:22; Start 03/24/17 at 14:00; Stop 03/25/17 at 08:53; Status DC Aspirin (Ecotrin) 325 mg [id number] PO Last administered on 04/02/17 08:06; Start 03/25/17 at 08:00 Atorvastatin Calcium (Lipitor) 20 mg QHS PO Last administered on 04/01/17 21: 26; Start 03/24/17 at 21:00 Labetalol HCl (Normodyne) 10 mg PRN Q10MIN PRN IV HYPERTENSION, SEE COMMENTS Last administered on 03/25/17 20:08; Start 03/24/17 at 13:45 Acetaminophen (Tylenol) 650 mg PRN Q6HRS PRN PO FEVER; Start 03/24/17 at 13:45 ; Stop 03/29/17 at 21:13; Status DC Acetaminophen (Acetaminophen Supp) 650 mg PRN Q6HRS PRN DE FEVER Last administered on 03/28/17 21:42; Start 03/24/17 at 13:45; Stop 03/31/17 at 14:28 ; Status DC Enoxaparin Sodium (Lovenox 40mg Syringe) 40 mg Q24H SQ Last administered on 15:26; Start 03/24/17 at 15:00; Stop 03/29/17 at 08:44; Status DC Iohexol (Omnipaque 350 Mg/ml) 60 ml 1X ONCE IV Last administered on 03/24/17 16:25; Start 03/24/17 at 16:15; Stop 03/24/17 at 16:20; Status DC Info (Do NOT chart on this entry -- for MONITORING) 1 each PRN DAILY PRN MC SEE COMMENTS; Start 03/24/17 at 16:30; Stop 03/26/17 at 16:29; Status DC Ondansetron HCl (Zofran) 4 mg PRN Q6HRS PRN IV NAUSEA/VOMITING; Start 03/24/17 at 16:30 Amino Acids/ Glycerin/ Electrolytes 1,000 ml @ 80 mls/hr [id number] IV Last administered on 03/31/17 03:34; Start 03/25/17 at 09:30; Stop 03/31/17 at 12:13 ; Status DC Barium Sulfate (Varibar Thin Liquid Apple) 148 gm 1X ONCE PO Last administered on 03/26/17 13:30; Start 03/26/17 at 13:30; Stop 03/26/17 at 13:31 ; Status DC Ringer's Solution 1,000 ml @ 50 mls/hr Q20H IV ; Start 03/29/17 at 07:00; Stop 03/29/17 at 07:28; Status DC Diphenhydramine HCl (Benadryl) 25 mg PRN Q6HRS PRN IVP ITCHING Last administered on 04/01/17 23:43; Start 03/26/17 at 23:00 Potassium Chloride 50 ml @ 50 mls/hr Q1H IV ; Start 03/27/17 at 13:00; Stop at 14:59; Status UNV Potassium Chloride 100 ml @ 100 mls/hr Q1H IV Last administered on 03/27/17 19:45; Start 03/27/17 at 13:00; Stop 03/27/17 at 16:59; Status DC Ringer's Solution 1,000 ml @ 50 mls/hr Q20H IV ; Start 03/29/17 at 13:00; Stop 03/29/17 at 19:13; Status DC Midazolam HCl (Versed) 2 mg PRN 1X PRN IV PRIOR TO PROCEDURE; Start 03/29/17 at 12:15; Stop 03/29/17 at 15:49; Status DC Fentanyl Citrate (Fentanyl 2ml Vial) 25 mcg PRN Q5MIN PRN IV X 2 DOSES FOR PAIN ; Start 03/29/17 at 12:15; Stop 03/29/17 at 15:49; Status DC Fentanyl Citrate (Fentanyl 2ml Vial) 50 mcg PRN Q5MIN PRN IV X 2 DOSES FOR PAIN ; Start 03/29/17 at 12:15; Stop 03/29/17 at 15:49; Status DC Ringer's Solution 1,000 ml @ 125 mls/hr Q8H IV Last administered on 03/29/17 12:38; Start 03/29/17 at 12:07; Stop 03/29/17 at 17:31; Status DC Lidocaine HCl 2 ml 1X PRN PRN ID IV START; Start 03/29/17 at 12:15; Stop at 12:14; Status DC Propofol 20 ml @ As Directed STK-MED ONCE IV ; Start 03/29/17 at 12:29; Stop at 12:30; Status DC Morphine Sulfate 1 mg PRN Q2HR PRN IV PAIN Last administered on 04/01/17 11:23 ; Start 03/29/17 at 16:15 Morphine Sulfate 2 mg PRN Q2HR PRN IV PAIN Last administered on 03/29/17 22:06 ; Start 03/29/17 at 16:15 Acetaminophen (Tylenol) 650 mg PRN Q6HRS PRN PEG MILD PAIN / TEMP Last administered on 04/01/17 18:19; Start 03/29/17 at 21:15 Senna/Docusate Sodium (Senna Plus) 1 tab BID PO Last administered on 04/02/17 08:05; Start 03/31/17 at 21:00 Docusate Sodium (Colace) 100 mg BID PO Last administered on 04/01/17 21:26; Start 03/31/17 at 21:00 Magnesium Hydroxide (Milk Of Magnesia) 2,400 mg PRN Q12HR PRN PO CONSTIPATION; Start 03/31/17 at 12:15 Potassium Chloride (KCl Oral Soln) 40 meq 1X ONCE PEG Last administered on 11:30; Start 04/01/17 at 11:15; Stop 04/01/17 at 11:16; Status DC Insulin Aspart (NovoLOG) 0-9 UNITS TIDWMEALS SQ Last administered on 04/02/17 08:19; Start 04/01/17 at 12:00 Dextrose (Dextrose 50%-Water Syringe) 12.5 gm PRN Q15MIN PRN IV SEE COMMENTS; Start 04/01/17 at 11:15; Status UNV Insulin Detemir (Levemir) 10 units QHS SQ Last administered on 04/01/17 21:49 ; Start 04/01/17 at 21:00; Stop 04/02/17 at 08:18; Status DC Insulin Detemir (Levemir) 15 units QHS SQ ; Start 04/02/17 at 21:00 Insulin Aspart (NovoLOG) 5 units TIDAC SQ ; Start 04/02/17 at 11:30 Scopolamine (Transderm-Scop) 1 patch Q3DAYS TD Last administered on 9/1/17at 10 :22; Start 04/02/17 at 10:00 Active Scripts Active Reported Atorvastatin Calcium 40 Mg Tablet 1 Tab PO DAILY Losartan Potassium 100 Mg Tablet 100 Mg PO DAILY Aspir 81 (Aspirin) 81 Mg Tablet. 1 Tab PO DAILY Vitals/I & O Vital Sign - Last 24 Hours 04/01/17 04/01/17 04/01/17 04/01/17 11:23 11:53 14:26 19:00 Temp 98.5 99.2 98.5 99.2 Pulse 73 87 Resp 16 17 22 20 B/P (MAP) 145/75 (98) 131/61 (84) Pulse Ox 93 93 94 90 O2 Delivery Room Air Room Air Room Air Room Air 04/01/17 04/01/17 04/02/17 04/02/17 20:00 22:43 02:52 07:00 Temp 98.1 98.3 99.5 98.1 98.3 99.5 Pulse 70 70 66 Resp 20 20 20 B/P (MAP) 115/55 (75) 108/56 (73) 186/80 (115) Pulse Ox 92 92 96 O2 Delivery Room Air Room Air Room Air Room Air O2 Flow Rate 2.0 04/02/17 08:22 O2 Delivery Room Air Intake and Output 04/02/17 04/02/17 04/03/17 15:00 23:00 07:00 Intake Total 120 ml Balance 120 ml ANA WOODSON MD Apr 02, 2017 10:55
[2017-04-02 11:00] VITALS: BP 129/54
--- NOTE | 2017-04-02 14:52 | PDOC ---
PROGRESS NOTES Assessment Assessment Subacute right BG, goldsmith radiata and right hemisphere infracts. Metabolic encephalopathy. Left side hemiplegia. 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 DM HTN HLD Obesity. UTI RECOMMENDATIONS/PLAN: Continue ASA 325 mg daily. Continue Lipitor HS. Vascular Surgery consulted and no indication for surgical intervention. OT/PT Rehab. Discussed with her [id number] at bedside. Past Medical History Cardiovascular: HTN CENTRAL NERVOUS SYSTEM: Other (headaches) GI: Other (she has been having some abdominal pain) Endocrine: Diabetes Past Surgical History Family History Hypertension Social History , used to smoke and uses alcohol but none in the last several years. ALLERGY: Reviewed. MEDICATIONS: Refer to MAR REVIEW OF SYSTEMS: Constitutional: No malnutrition, weight loss, cachexia. Head: No traumatic brain or head injury. Skin: No edema, or rash. Ear: No infection. Eyes: No vision loss, or diplopia. Nose: No bleeding or purulent discharges. Hearing: No hearing decrease. Neck: No injury. Breast: No history of cancer, masses, or discharges. Cardiac: HTN, HLD Pulmonary: No CPOD. GI: No GI Ulcer, GI bleeding Urinary/genital: UTI. Endocrine: Diabetes Mellitus, obesity. Skeletomuscular: No muscular atrophy, deformity. Neurological: see HP. Psychiatric: Denies drug use/abuse. Otherwise, not -gxcqq review of systems. PHYSICAL EXAMINATION: General appearance in subacute distress. HEENT: Normocephalic and nontraumatic. Eyes, nose, ears, and throat are unremarkable. Neck is supple. No lymphadenopathy. No No Crepitus. Cardiovascular: S1, S2, regular rate and rhythm. Pulmonary: No rails heard to auscultation bilaterally. Abdomen: Bowel sounds are positive. Extremities: No rash, lesions, or edema. NEUROLOGICAL EXAMINATION: Sleepiness, but arousable. Able to follow a few commands with language help of her grand-daughter. Not oriented to time, place but knows her family members. PERRL. EOMI but slow. Gaze deviation to right side. CN: left VII palsy. Muscle tone: within normal. Muscle strength: 1 left UE, 2 left LE, 5- right side. DTR: 1+ Left UE and LE Plantar reflex: left side extensor response, right side neutral response. Gait: Unable to walk. Sensory exam: decreased in left UE and LE. No acute cerebellar signs elicited. F-T-N test not performed due to not follow commands. Objective Objective Vital Signs Date Time Temp Pulse Resp B/P (MAP) Pulse Ox O2 Delivery O2 Flow Rate FiO2 04/02/17 11:00 98.3 67 18 129/54 (79) 92 Room Air 98.3 04/01/17 20:00 2.0 Intake and Output 04/03/17 07:00 Intake Total 240 ml Balance 240 ml Tube Feeding 240 ml Vitals Signs Vitals VS - Last 72 Hours, by Label Date Time Temp Pulse Resp B/P (MAP) Pulse Ox O2 Delivery O2 Flow Rate FiO2 04/02/17 11:00 98.3 67 18 129/54 (79) 92 Room Air 98.3 04/02/17 08:22 Room Air 04/02/17 07:00 99.5 66 20 186/80 (115) 96 Room Air 99.5 04/02/17 02:52 98.3 70 20 108/56 (73) 92 Room Air 98.3 04/01/17 22:43 98.1 70 20 115/55 (75) 92 Room Air 98.1 04/01/17 20:00 Room Air 2.0 04/01/17 19:00 99.2 87 20 131/61 (84) 90 Room Air 99.2 04/01/17 14:26 98.5 73 22 145/75 (98) 94 Room Air 98.5 04/01/17 11:53 17 93 Room Air 04/01/17 11:23 16 93 Room Air 04/01/17 10:28 98.3 68 20 122/78 (93) 93 Room Air 98.3 04/01/17 08:00 Room Air 04/01/17 07:21 97.6 75 19 138/79 (98) 92 Room Air 97.6 Laboratory Laboratory Laboratory Tests Test 04/01/17 18:07 04/01/17 21:30 04/02/17 04:07 04/02/17 06:03 Glucose (Fingerstick) 239 mg/dL (70-99) 197 mg/dL (70-99) 203 mg/dL (70-99) White Blood Count 14.0 x10^3/uL (4.0-11.0) Red Blood Count 4.55 x10^6/uL (3.50-5.40) Hemoglobin 13.8 g/dL (12.0-15.5) Hematocrit 41.9 % (36.0-47.0) Mean Corpuscular Volume 92 fL (79-100) Mean Corpuscular Hemoglobin 30 pg (25-35) Mean Corpuscular Hemoglobin Concent 33 g/dL (31-37) Red Cell Distribution Width 13.2 % (11.5-14.5) Platelet Count 236 x10^3/uL (140-400) Neutrophils (%) (Auto) 71 % (31-73) Lymphocytes (%) (Auto) 15 % (24-48) Monocytes (%) (Auto) 8 % (0-9) Eosinophils (%) (Auto) 5 % (0-3) Basophils (%) (Auto) 1 % (0-3) Neutrophils # (Auto) 9.9 x10^3uL (1.8-7.7) Lymphocytes # (Auto) 2.1 x10^3/uL (1.0-4.8) Monocytes # (Auto) 1.1 x10^3/uL (0.0-1.1) Eosinophils # (Auto) 0.7 x10^3/uL (0.0-0.7) Basophils # (Auto) 0.1 x10^3/uL (0.0-0.2) Sodium Level 138 mmol/L (136-145) Potassium Level 3.9 mmol/L (3.5-5.1) Chloride Level 103 mmol/L (98-107) Carbon Dioxide Level 28 mmol/L (21-32) Anion Gap 7 (6-14) Blood Urea Nitrogen 23 mg/dL (7-20) Creatinine 0.9 mg/dL (0.6-1.0) Estimated GFR (Cockcroft-Gault) 62.3 Glucose Level 229 mg/dL (70-99) Calcium Level 8.0 mg/dL (8.5-10.1) Test 04/02/17 11:10 Glucose (Fingerstick) 244 mg/dL (70-99) Medication Medications Current Medications Insulin Aspart (NovoLOG) 5 units TIDAC SQ Last administered on 04/02/17t 13:42; Start 04/02/17 at 11:30 Insulin Detemir (Levemir) 10 units QHS SQ Last administered on 04/01/17 21:49 ; Start 04/01/17 at 21:00; Stop 04/02/17 at 08:18; Status DC Insulin Detemir (Levemir) 15 units QHS SQ ; Start 04/02/17 at 21:00 Scopolamine (Transderm-Scop) 1 patch Q3DAYS TD Last administered on 04/02/17 10 :22; Start 04/02/17 at 10:00 Comment Review of Relevant I have reviewed the following items tamie (where applicable) has been applied. REEMA CARTER MD Apr 02, 2017 14:52
[2017-04-02 15:00] VITALS: BP 129/56
--- NOTE | 2017-04-02 15:39 | RAD ---
Exam performed: One view chest. Indication: Pneumonia Date of Service: 04/02/2017 11:54 AM Comparison: One view chest from 03/21/17 Single AP upright portable view chest findings: Cardiomediastinal silhouette is within limits of normal. No acute infiltrates, effusion or pneumothorax is detected. The bony structures are normal. Impression: No acute cardiopulmonary process is detected.
[2017-04-02 19:58] VITALS: BP 107/71
[2017-04-02] MEDS ORDERED: INSULIN DETEMIR 300 UNITS/3 ML INSULN.PEN. SQ SCH (21:00)
[2017-04-02] MEDS: ATORVASTATIN CALCIUM 20 MG TABLET PO SCH (21:15)
[2017-04-02 23:30] VITALS: BP 128/55
[2017-04-03] MEDS: diphenhydrAMINE 50 MG/ML VIAL IVP PRN ×2 (02:38→13:24)
[2017-04-03] MEDS: MORPHINE SULFATE 2 MG/ML DISP.SYRIN. IV PRN (02:41)
[2017-04-03 07:00] VITALS: BP 150/61
[2017-04-03] MEDS: DOCUSATE SODIUM 100 MG CAPSULE. PO SCH ×2 (07:48→21:25)
[2017-04-03] MEDS: ASPIRIN ENTERIC COATED 325 MG TABLET.DR. PO SCH (08:01)
[2017-04-03] MEDS: SENNOSIDES/DOCUSATE 8.6/50MG TABLET. PO SCH ×2 (08:01→21:25)
[2017-04-03 08:11] LABS: BASO # 0.1 x10^3/uL (0.0-0.2); BASO % 1 % (0-3); EOS % 5 % (0-3); HEMATOCRIT 40.6 % (36.0-47.0); HEMOGLOBIN 13.3 g/dL (12.0-15.5); LYMPH # 2.5 x10^3/uL (1.0-4.8); LYMPH % 17 % (24-48); MEAN CORPUSCULAR HEMOGLOBIN 30 pg (25-35); MEAN CORPUSCULAR HGB CONC 33 g/dL (31-37); MEAN CORPUSCULAR VOLUME 92 fL (79-100); MONO % 8 % (0-9); NEUT % 69 % (31-73); PLATELET COUNT 253 x10^3/uL (140-400); RED BLOOD COUNT 4.43 x10^6/uL (3.50-5.40); RED CELL DISTRIBUTION WIDTH 12.7 % (11.5-14.5); WHITE BLOOD COUNT 14.7 x10^3/uL (4.0-11.0)
[2017-04-03] MEDS: INSULIN ASPART 300 UNITS/3 ML INSULN.PEN SQ SCH ×6 (08:17→17:12)
[2017-04-03 08:23] LABS: CALCIUM 8.6 mg/dL (8.5-10.1); CREATININE 0.9 mg/dL (0.6-1.0); GFR 62.3
[2017-04-03 11:00] VITALS: BP 121/71
[2017-04-03 13:17] LABS: BILIRUBIN,URINE NEGATIVE (NEG); GLUCOSE,URINE NEGATIVE (NEG); NITRITE,URINE NEGATIVE (NEG); PH,URINE 6.5; PROTEIN,URINE NEGATIVE (NEG-TRACE)
--- NOTE | 2017-04-03 13:22 | PDOC ---
PROGRESS NOTES Chief Complaint Chief Complaint CVA with left sided weakness hld htn Type 2 DM - uncontrolled Obesity Not compliant with meds leukocytosis, reactive? constipation hypokalemia plan: fu with gi, neuro on ASA, lipitor through PEG ON peg, DC ppn dc abx add stool softner SW fu for SNF, waiting pat consulted recheck UA, UCX since leukocytosis, repeat CXR still neg. check bcx replete K SSI, add levemir 20u qhs, aspart 7u tid add scopolamine patch History of Present Illness History of Present Illness ROS: no chills, sob or chest pain. T 99.5 Pt speaks chukese, granddaughter at bedside and helping translate. Pt is laying in bed, not handling secretions well. PEG dry and clean, no erythema. 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 Per GI, resume lovenox today, ok to feed through PEG could move left lower ext, cannot move since Wednesday high WBC at 15, down to 14 hyperglycemia Vitals Vitals Vital Signs Date Time Temp Pulse Resp B/P (MAP) Pulse Ox O2 Delivery O2 Flow Rate FiO2 04/03/17 11:00 98.7 68 18 121/71 (88) 97 Room Air 98.7 Physical Exam General: Alert, Cooperative, Other (arousable and following commands) Heart: Regular rate Lungs: Clear Abdomen: Soft, No tenderness Extremities: No clubbing, No cyanosis, No edema, Other (left arm paralyzed, left leg can move a little bit) Skin: No rashes, No breakdown Labs LABS Laboratory Tests Test 04/02/17 18:21 04/03/17 00:48 04/03/17 06:33 04/03/17 07:57 Glucose (Fingerstick) 162 mg/dL (70-99) 160 mg/dL (70-99) 176 mg/dL (70-99) 184 mg/dL (70-99) Test 04/03/17 08:00 04/03/17 11:27 White Blood Count 14.7 x10^3/uL (4.0-11.0) Red Blood Count 4.43 x10^6/uL (3.50-5.40) Hemoglobin 13.3 g/dL (12.0-15.5) Hematocrit 40.6 % (36.0-47.0) Mean Corpuscular Volume 92 fL (79-100) Mean Corpuscular Hemoglobin 30 pg (25-35) Mean Corpuscular Hemoglobin Concent 33 g/dL (31-37) Red Cell Distribution Width 12.7 % (11.5-14.5) Platelet Count 253 x10^3/uL (140-400) Neutrophils (%) (Auto) 69 % (31-73) Lymphocytes (%) (Auto) 17 % (24-48) Monocytes (%) (Auto) 8 % (0-9) Eosinophils (%) (Auto) 5 % (0-3) Basophils (%) (Auto) 1 % (0-3) Neutrophils # (Auto) 10.2 x10^3uL (1.8-7.7) Lymphocytes # (Auto) 2.5 x10^3/uL (1.0-4.8) Monocytes # (Auto) 1.1 x10^3/uL (0.0-1.1) Eosinophils # (Auto) 0.8 x10^3/uL (0.0-0.7) Basophils # (Auto) 0.1 x10^3/uL (0.0-0.2) Sodium Level 138 mmol/L (136-145) Potassium Level 4.0 mmol/L (3.5-5.1) Chloride Level 102 mmol/L (98-107) Carbon Dioxide Level 31 mmol/L (21-32) Anion Gap 5 (6-14) Blood Urea Nitrogen 22 mg/dL (7-20) Creatinine 0.9 mg/dL (0.6-1.0) Estimated GFR (Cockcroft-Gault) 62.3 Glucose Level 214 mg/dL (70-99) Calcium Level 8.6 mg/dL (8.5-10.1) Glucose (Fingerstick) 183 mg/dL (70-99) Assessment and Plan Assessmemt and Plan Problems Medical Problems: (1) CVA (cerebral vascular accident) Status: Acute Problems: Comment Review of Relevant I have reviewed the following items tamie (where applicable) has been applied. Labs Laboratory Tests Test 04/01/17 18:07 04/01/17 21:30 04/02/17 04:07 04/02/17 06:03 Glucose (Fingerstick) 239 mg/dL (70-99) 197 mg/dL (70-99) 203 mg/dL (70-99) White Blood Count 14.0 x10^3/uL (4.0-11.0) Red Blood Count 4.55 x10^6/uL (3.50-5.40) Hemoglobin 13.8 g/dL (12.0-15.5) Hematocrit 41.9 % (36.0-47.0) Mean Corpuscular Volume 92 fL (79-100) Mean Corpuscular Hemoglobin 30 pg (25-35) Mean Corpuscular Hemoglobin Concent 33 g/dL (31-37) Red Cell Distribution Width 13.2 % (11.5-14.5) Platelet Count 236 x10^3/uL (140-400) Neutrophils (%) (Auto) 71 % (31-73) Lymphocytes (%) (Auto) 15 % (24-48) Monocytes (%) (Auto) 8 % (0-9) Eosinophils (%) (Auto) 5 % (0-3) Basophils (%) (Auto) 1 % (0-3) Neutrophils # (Auto) 9.9 x10^3uL (1.8-7.7) Lymphocytes # (Auto) 2.1 x10^3/uL (1.0-4.8) Monocytes # (Auto) 1.1 x10^3/uL (0.0-1.1) Eosinophils # (Auto) 0.7 x10^3/uL (0.0-0.7) Basophils # (Auto) 0.1 x10^3/uL (0.0-0.2) Sodium Level 138 mmol/L (136-145) Potassium Level 3.9 mmol/L (3.5-5.1) Chloride Level 103 mmol/L (98-107) Carbon Dioxide Level 28 mmol/L (21-32) Anion Gap 7 (6-14) Blood Urea Nitrogen 23 mg/dL (7-20) Creatinine 0.9 mg/dL (0.6-1.0) Estimated GFR (Cockcroft-Gault) 62.3 Glucose Level 229 mg/dL (70-99) Calcium Level 8.0 mg/dL (8.5-10.1) Test 04/02/17 11:10 04/02/17 18:21 04/03/17 00:48 04/03/17 06:33 Glucose (Fingerstick) 244 mg/dL (70-99) 162 mg/dL (70-99) 160 mg/dL (70-99) 176 mg/dL (70-99) Test 04/03/17 07:57 04/03/17 08:00 04/03/17 11:27 Glucose (Fingerstick) 184 mg/dL (70-99) 183 mg/dL (70-99) White Blood Count 14.7 x10^3/uL (4.0-11.0) Red Blood Count 4.43 x10^6/uL (3.50-5.40) Hemoglobin 13.3 g/dL (12.0-15.5) Hematocrit 40.6 % (36.0-47.0) Mean Corpuscular Volume 92 fL (79-100) Mean Corpuscular Hemoglobin 30 pg (25-35) Mean Corpuscular Hemoglobin Concent 33 g/dL (31-37) Red Cell Distribution Width 12.7 % (11.5-14.5) Platelet Count 253 x10^3/uL (140-400) Neutrophils (%) (Auto) 69 % (31-73) Lymphocytes (%) (Auto) 17 % (24-48) Monocytes (%) (Auto) 8 % (0-9) Eosinophils (%) (Auto) 5 % (0-3) Basophils (%) (Auto) 1 % (0-3) Neutrophils # (Auto) 10.2 x10^3uL (1.8-7.7) Lymphocytes # (Auto) 2.5 x10^3/uL (1.0-4.8) Monocytes # (Auto) 1.1 x10^3/uL (0.0-1.1) Eosinophils # (Auto) 0.8 x10^3/uL (0.0-0.7) Basophils # (Auto) 0.1 x10^3/uL (0.0-0.2) Sodium Level 138 mmol/L (136-145) Potassium Level 4.0 mmol/L (3.5-5.1) Chloride Level 102 mmol/L (98-107) Carbon Dioxide Level 31 mmol/L (21-32) Anion Gap 5 (6-14) Blood Urea Nitrogen 22 mg/dL (7-20) Creatinine 0.9 mg/dL (0.6-1.0) Estimated GFR (Cockcroft-Gault) 62.3 Glucose Level 214 mg/dL (70-99) Calcium Level 8.6 mg/dL (8.5-10.1) Laboratory Tests Test 04/02/17 18:21 04/03/17 00:48 04/03/17 06:33 04/03/17 07:57 Glucose (Fingerstick) 162 mg/dL (70-99) 160 mg/dL (70-99) 176 mg/dL (70-99) 184 mg/dL (70-99) Test 04/03/17 08:00 04/03/17 11:27 White Blood Count 14.7 x10^3/uL (4.0-11.0) Red Blood Count 4.43 x10^6/uL (3.50-5.40) Hemoglobin 13.3 g/dL (12.0-15.5) Hematocrit 40.6 % (36.0-47.0) Mean Corpuscular Volume 92 fL (79-100) Mean Corpuscular Hemoglobin 30 pg (25-35) Mean Corpuscular Hemoglobin Concent 33 g/dL (31-37) Red Cell Distribution Width 12.7 % (11.5-14.5) Platelet Count 253 x10^3/uL (140-400) Neutrophils (%) (Auto) 69 % (31-73) Lymphocytes (%) (Auto) 17 % (24-48) Monocytes (%) (Auto) 8 % (0-9) Eosinophils (%) (Auto) 5 % (0-3) Basophils (%) (Auto) 1 % (0-3) Neutrophils # (Auto) 10.2 x10^3uL (1.8-7.7) Lymphocytes # (Auto) 2.5 x10^3/uL (1.0-4.8) Monocytes # (Auto) 1.1 x10^3/uL (0.0-1.1) Eosinophils # (Auto) 0.8 x10^3/uL (0.0-0.7) Basophils # (Auto) 0.1 x10^3/uL (0.0-0.2) Sodium Level 138 mmol/L (136-145) Potassium Level 4.0 mmol/L (3.5-5.1) Chloride Level 102 mmol/L (98-107) Carbon Dioxide Level 31 mmol/L (21-32) Anion Gap 5 (6-14) Blood Urea Nitrogen 22 mg/dL (7-20) Creatinine 0.9 mg/dL (0.6-1.0) Estimated GFR (Cockcroft-Gault) 62.3 Glucose Level 214 mg/dL (70-99) Calcium Level 8.6 mg/dL (8.5-10.1) Glucose (Fingerstick) 183 mg/dL (70-99) Medications Current Medications Insulin Aspart (NovoLOG) 0-5 UNITS TIDWMEALS SQ Last administered on 03/31/17 17:31; Start 03/24/17 at 17:00; Stop 04/01/17 at 09:20; Status DC Dextrose (Dextrose 50%-Water Syringe) 12.5 gm PRN Q15MIN PRN IV SEE COMMENTS; Start 03/24/17 at 12:30 Ceftriaxone Sodium 50 ml @ 100 mls/hr 1X ONCE IV Last administered on 13:33; Start 03/24/17 at 13:30; Stop 03/24/17 at 13:59; Status DC Ceftriaxone Sodium 1 gm/ Sodium Chloride 50 ml @ 100 mls/hr Q24H IV Last administered on 03/30/17 13:23; Start 03/25/17 at 14:00; Stop 03/31/17 at 14:28 ; Status DC Ondansetron HCl (Zofran) 4 mg PRN Q8HRS PRN IV NAUSEA/VOMITING; Start 03/24/17 at 13:30; Stop 03/25/17 at 13:29; Status DC Sodium Chloride 1,000 ml @ 125 mls/hr Q8H IV Last administered on 03/24/17 13 :37; Start 03/24/17 at 13:45; Stop 03/25/17 at 08:53; Status DC Aspirin (Aspirin) 300 mg 1X ONCE MS Last administered on 03/24/17 13:45; Start 03/24/17 at 13:45; Stop 03/24/17 at 13:46; Status DC Sodium Chloride (Normal Saline Flush) 3 ml QSHIFT PRN IV AFTER MEDS AND BLOOD DRAWS; Start 03/24/17 at 13:45 Sodium Chloride 1,000 ml @ 100 mls/hr Q10H IV Last administered on 03/25/17 01:22; Start 03/24/17 at 14:00; Stop 03/25/17 at 08:53; Status DC Aspirin (Ecotrin) 325 mg [id number] PO Last administered on 04/03/17 08:01; Start 03/25/17 at 08:00 Atorvastatin Calcium (Lipitor) 20 mg QHS PO Last administered on 04/02/17 21:15 ; Start 03/24/17 at 21:00 Labetalol HCl (Normodyne) 10 mg PRN Q10MIN PRN IV HYPERTENSION, SEE COMMENTS Last administered on 03/25/17 20:08; Start 03/24/17 at 13:45 Acetaminophen (Tylenol) 650 mg PRN Q6HRS PRN PO FEVER; Start 03/24/17 at 13:45 ; Stop 03/29/17 at 21:13; Status DC Acetaminophen (Acetaminophen Supp) 650 mg PRN Q6HRS PRN MS FEVER Last administered on 03/28/17 21:42; Start 03/24/17 at 13:45; Stop 03/31/17 at 14:28 ; Status DC Enoxaparin Sodium (Lovenox 40mg Syringe) 40 mg Q24H SQ Last administered on 15:26; Start 03/24/17 at 15:00; Stop 03/29/17 at 08:44; Status DC Iohexol (Omnipaque 350 Mg/ml) 60 ml 1X ONCE IV Last administered on 03/24/17 16:25; Start 03/24/17 at 16:15; Stop 03/24/17 at 16:20; Status DC Info (Do NOT chart on this entry -- for MONITORING) 1 each PRN DAILY PRN MC SEE COMMENTS; Start 03/24/17 at 16:30; Stop 03/26/17 at 16:29; Status DC Ondansetron HCl (Zofran) 4 mg PRN Q6HRS PRN IV NAUSEA/VOMITING; Start 03/24/17 at 16:30 Amino Acids/ Glycerin/ Electrolytes 1,000 ml @ 80 mls/hr [id number] IV Last administered on 03/31/17 03:34; Start 03/25/17 at 09:30; Stop 03/31/17 at 12:13 ; Status DC Barium Sulfate (Varibar Thin Liquid Apple) 148 gm 1X ONCE PO Last administered on 03/26/17 13:30; Start 03/26/17 at 13:30; Stop 03/26/17 at 13:31 ; Status DC Ringer's Solution 1,000 ml @ 50 mls/hr Q20H IV ; Start 03/29/17 at 07:00; Stop 03/29/17 at 07:28; Status DC Diphenhydramine HCl (Benadryl) 25 mg PRN Q6HRS PRN IVP ITCHING Last administered on 04/03/17 02:38; Start 03/26/17 at 23:00 Potassium Chloride 50 ml @ 50 mls/hr Q1H IV ; Start 03/27/17 at 13:00; Stop at 14:59; Status UNV Potassium Chloride 100 ml @ 100 mls/hr Q1H IV Last administered on 03/27/17 19:45; Start 03/27/17 at 13:00; Stop 03/27/17 at 16:59; Status DC Ringer's Solution 1,000 ml @ 50 mls/hr Q20H IV ; Start 03/29/17 at 13:00; Stop 03/29/17 at 19:13; Status DC Midazolam HCl (Versed) 2 mg PRN 1X PRN IV PRIOR TO PROCEDURE; Start 03/29/17 at 12:15; Stop 03/29/17 at 15:49; Status DC Fentanyl Citrate (Fentanyl 2ml Vial) 25 mcg PRN Q5MIN PRN IV X 2 DOSES FOR PAIN ; Start 03/29/17 at 12:15; Stop 03/29/17 at 15:49; Status DC Fentanyl Citrate (Fentanyl 2ml Vial) 50 mcg PRN Q5MIN PRN IV X 2 DOSES FOR PAIN ; Start 03/29/17 at 12:15; Stop 03/29/17 at 15:49; Status DC Ringer's Solution 1,000 ml @ 125 mls/hr Q8H IV Last administered on 03/29/17 12:38; Start 03/29/17 at 12:07; Stop 03/29/17 at 17:31; Status DC Lidocaine HCl 2 ml 1X PRN PRN ID IV START; Start 03/29/17 at 12:15; Stop at 12:14; Status DC Propofol 20 ml @ As Directed STK-MED ONCE IV ; Start 03/29/17 at 12:29; Stop at 12:30; Status DC Morphine Sulfate 1 mg PRN Q2HR PRN IV PAIN Last administered on 04/01/17 11:23 ; Start 03/29/17 at 16:15 Morphine Sulfate 2 mg PRN Q2HR PRN IV PAIN Last administered on 04/03/17 02:41 ; Start 03/29/17 at 16:15 Acetaminophen (Tylenol) 650 mg PRN Q6HRS PRN PEG MILD PAIN / TEMP Last administered on 04/01/17 18:19; Start 03/29/17 at 21:15 Senna/Docusate Sodium (Senna Plus) 1 tab BID PO Last administered on 04/03/17 08:01; Start 03/31/17 at 21:00 Docusate Sodium (Colace) 100 mg BID PO Last administered on 04/01/17 21:26; Start 03/31/17 at 21:00 Magnesium Hydroxide (Milk Of Magnesia) 2,400 mg PRN Q12HR PRN PO CONSTIPATION; Start 03/31/17 at 12:15 Potassium Chloride (KCl Oral Soln) 40 meq 1X ONCE PEG Last administered on 11:30; Start 04/01/17 at 11:15; Stop 04/01/17 at 11:16; Status DC Insulin Aspart (NovoLOG) 0-9 UNITS TIDWMEALS SQ Last administered on 04/03/17 12:48; Start 04/01/17 at 12:00 Dextrose (Dextrose 50%-Water Syringe) 12.5 gm PRN Q15MIN PRN IV SEE COMMENTS; Start 04/01/17 at 11:15; Status UNV Insulin Detemir (Levemir) 10 units QHS SQ Last administered on 04/01/17 21:49 ; Start 04/01/17 at 21:00; Stop 04/02/17 at 08:18; Status DC Insulin Detemir (Levemir) 15 units QHS SQ Last administered on 04/02/17 21:21; Start 04/02/17 at 21:00 Insulin Aspart (NovoLOG) 5 units TIDAC SQ Last administered on 04/03/17 12:49; Start 04/02/17 at 11:30 Scopolamine (Transderm-Scop) 1 patch Q3DAYS TD Last administered on 04/02/17 10 :22; Start 04/02/17 at 10:00 Active Scripts Active Reported Atorvastatin Calcium 40 Mg Tablet 1 Tab PO DAILY Losartan Potassium 100 Mg Tablet 100 Mg PO DAILY Aspir 81 (Aspirin) 81 Mg Tablet.dr 1 Tab PO DAILY Vitals/I & O Vital Sign - Last 24 Hours 04/02/17 04/02/17 04/02/17 04/02/17 15:00 19:58 20:00 23:30 Temp 98.5 98.4 99.5 98.5 98.4 99.5 Pulse 76 64 60 Resp 20 18 18 B/P (MAP) 129/56 (80) 107/71 (83) 128/55 (79) Pulse Ox 94 95 93 O2 Delivery Room Air Room Air Room Air Room Air 04/03/17 04/03/17 04/03/17 04/03/17 02:41 03:16 07:00 08:00 Temp 98.3 98.3 Pulse 67 Resp 18 B/P (MAP) 150/61 (90) Pulse Ox 96 O2 Delivery Room Air Room Air Room Air Room Air 04/03/17 11:00 Temp 98.7 98.7 Pulse 68 Resp 18 B/P (MAP) 121/71 (88) Pulse Ox 97 O2 Delivery Room Air Intake and Output 04/03/17 04/03/17 04/04/17 15:00 23:00 07:00 Intake Total 260 ml Balance 260 ml ANA WOODSON MD Apr 03, 2017 13:22
[2017-04-03 13:49] LABS: BACTERIA,URINE 0 /HPF (0-FEW); RBC,URINE OCC /HPF (0-2); SQUAMOUS EPITHELIAL CELL,UR FEW /LPF; WBC,URINE OCC /HPF (0-4)
--- NOTE | 2017-04-03 14:44 | PDOC ---
PROGRESS NOTES Assessment Assessment Subacute right BG, goldsmith radiata and right hemisphere infracts. Metabolic encephalopathy. Left side hemiplegia. 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 DM HTN HLD Obesity. UTI RECOMMENDATIONS/PLAN: Continue ASA 325 mg daily. Continue Lipitor HS. Vascular Surgery consulted and no indication for surgical intervention. OT/PT Rehab. Discussed with her son at bedside. Past Medical History Cardiovascular: HTN CENTRAL NERVOUS SYSTEM: Other (headaches) GI: Other (she has been having some abdominal pain) Endocrine: Diabetes Past Surgical History Family History Hypertension Social History , used to smoke and uses alcohol but none in the last several years. ALLERGY: Reviewed. MEDICATIONS: Refer to MAR REVIEW OF SYSTEMS: Constitutional: No malnutrition, weight loss, cachexia. Head: No traumatic brain or head injury. Skin: No edema, or rash. Ear: No infection. Eyes: No vision loss, or diplopia. Nose: No bleeding or purulent discharges. Hearing: No hearing decrease. Neck: No injury. Breast: No history of cancer, masses, or discharges. Cardiac: HTN, HLD Pulmonary: No CPOD. GI: No GI Ulcer, GI bleeding Urinary/genital: UTI. Endocrine: Diabetes Mellitus, obesity. Skeletomuscular: No muscular atrophy, deformity. Neurological: see HP. Psychiatric: Denies drug use/abuse. Otherwise, not [id number] review of systems. PHYSICAL EXAMINATION: General appearance in subacute distress. HEENT: Normocephalic and nontraumatic. Eyes, nose, ears, and throat are unremarkable. Neck is supple. No lymphadenopathy. No No Crepitus. Cardiovascular: S1, S2, regular rate and rhythm. Pulmonary: No rails heard to auscultation bilaterally. Abdomen: Bowel sounds are positive. Extremities: No rash, lesions, or edema. NEUROLOGICAL EXAMINATION: Awake from time to time. Able to follow a few commands with Kiswahili translation by her son at bedside. Not oriented to time, place but knows her family members. PERRL. EOMI but slow. Gaze deviation to right side. CN: left VII palsy. Muscle tone: within normal. Muscle strength: 1 left UE, 2 left LE, 5- right side. DTR: 1+ Left UE and LE Plantar reflex: left side extensor response, right side neutral response. Gait: Unable to walk. Sensory exam: decreased in left UE and LE. No acute cerebellar signs elicited. F-T-N test not performed due to not follow commands. Objective Objective Vital Signs Date Time Temp Pulse Resp B/P (MAP) Pulse Ox O2 Delivery O2 Flow Rate FiO2 04/03/17 11:00 98.7 68 18 121/71 (88) 97 Room Air 98.7 Intake and Output 04/04/17 06:59 Intake Total 260 ml Balance 260 ml Tube Feeding 260 ml Vitals Signs Vitals VS - Last 72 Hours, by Label Date Time Temp Pulse Resp B/P (MAP) Pulse Ox O2 Delivery O2 Flow Rate FiO2 04/03/17 11:00 98.7 68 18 121/71 (88) 97 Room Air 98.7 04/03/17 08:00 Room Air 04/03/17 07:00 98.3 67 18 150/61 (90) 96 Room Air 98.3 04/03/17 03:16 Room Air 04/03/17 02:41 Room Air 04/02/17 23:30 99.5 60 18 128/55 (79) 93 Room Air 99.5 04/02/17 20:00 Room Air 04/02/17 19:58 98.4 64 18 107/71 (83) 95 Room Air 98.4 04/02/17 15:00 98.5 76 20 129/56 (80) 94 Room Air 98.5 04/02/17 11:00 98.3 67 18 129/54 (79) 92 Room Air 98.3 04/02/17 08:22 Room Air 04/02/17 07:00 99.5 66 20 186/80 (115) 96 Room Air 99.5 Laboratory Laboratory Laboratory Tests Test 04/02/17 18:21 04/03/17 00:48 04/03/17 06:33 04/03/17 07:57 Glucose (Fingerstick) 162 mg/dL (70-99) 160 mg/dL (70-99) 176 mg/dL (70-99) 184 mg/dL (70-99) Test 04/03/17 08:00 04/03/17 10:30 04/03/17 11:27 White Blood Count 14.7 x10^3/uL (4.0-11.0) Red Blood Count 4.43 x10^6/uL (3.50-5.40) Hemoglobin 13.3 g/dL (12.0-15.5) Hematocrit 40.6 % (36.0-47.0) Mean Corpuscular Volume 92 fL (79-100) Mean Corpuscular Hemoglobin 30 pg (25-35) Mean Corpuscular Hemoglobin Concent 33 g/dL (31-37) Red Cell Distribution Width 12.7 % (11.5-14.5) Platelet Count 253 x10^3/uL (140-400) Neutrophils (%) (Auto) 69 % (31-73) Lymphocytes (%) (Auto) 17 % (24-48) Monocytes (%) (Auto) 8 % (0-9) Eosinophils (%) (Auto) 5 % (0-3) Basophils (%) (Auto) 1 % (0-3) Neutrophils # (Auto) 10.2 x10^3uL (1.8-7.7) Lymphocytes # (Auto) 2.5 x10^3/uL (1.0-4.8) Monocytes # (Auto) 1.1 x10^3/uL (0.0-1.1) Eosinophils # (Auto) 0.8 x10^3/uL (0.0-0.7) Basophils # (Auto) 0.1 x10^3/uL (0.0-0.2) Sodium Level 138 mmol/L (136-145) Potassium Level 4.0 mmol/L (3.5-5.1) Chloride Level 102 mmol/L (98-107) Carbon Dioxide Level 31 mmol/L (21-32) Anion Gap 5 (6-14) Blood Urea Nitrogen 22 mg/dL (7-20) Creatinine 0.9 mg/dL (0.6-1.0) Estimated GFR (Cockcroft-Gault) 62.3 Glucose Level 214 mg/dL (70-99) Calcium Level 8.6 mg/dL (8.5-10.1) Urine Collection Type Unknown Urine Color Yellow Urine Clarity Clear Urine pH 6.5 Urine Specific Shirley >=1.030 Urine Protein Negative mg/dL (NEG-TRACE) Urine Glucose (UA) Negative mg/dL (NEG) Urine Ketones (Stick) Negative mg/dL (NEG) Urine Blood Negative (NEG) Urine Nitrite Negative (NEG) Urine Bilirubin Negative (NEG) Urine Urobilinogen Dipstick 1.0 mg/dL (0.2 mg/dL) Urine Leukocyte Esterase Negative (NEG) Urine RBC Occ /HPF (0-2) Urine WBC Occ /HPF (0-4) Urine Squamous Epithelial Cells Few /LPF Urine Bacteria 0 /HPF (0-FEW) Urine Mucus Mod /LPF Glucose (Fingerstick) 183 mg/dL (70-99) Medication Medications Current Medications Insulin Aspart (NovoLOG) 7 units TIDAC SQ ; Start 04/03/17 at 16:30 Insulin Detemir (Levemir) 15 units QHS SQ Last administered on 04/02/17t 21:21; Start 04/02/17 at 21:00; Stop 04/03/17 at 13:21; Status DC Insulin Detemir (Levemir) 20 units QHS SQ ; Start 04/03/17 at 21:00 Comment Review of Relevant I have reviewed the following items tamie (where applicable) has been applied. REEMA CARTER MD Apr 03, 2017 14:44
[2017-04-03 15:00] VITALS: BP 139/41
[2017-04-03 19:00] VITALS: BP 147/60
[2017-04-03] MEDS: ACETAMINOPHEN 650 MG/20.3 ML SOLUTION. PEG PRN (21:25)
[2017-04-03] MEDS: ATORVASTATIN CALCIUM 20 MG TABLET PO SCH (21:25)
[2017-04-03] MEDS: INSULIN DETEMIR 300 UNITS/3 ML INSULN.PEN. SQ SCH (21:37)
[2017-04-03 23:00] VITALS: BP 115/41
[2017-04-04 03:00] VITALS: BP 134/70
[2017-04-04 06:05] LABS: BASO # 0.1 x10^3/uL (0.0-0.2); BASO % 1 % (0-3); EOS % 6 % (0-3); HEMATOCRIT 39.2 % (36.0-47.0); HEMOGLOBIN 12.8 g/dL (12.0-15.5); LYMPH # 2.8 x10^3/uL (1.0-4.8); LYMPH % 20 % (24-48); MEAN CORPUSCULAR HEMOGLOBIN 30 pg (25-35); MEAN CORPUSCULAR HGB CONC 33 g/dL (31-37); MEAN CORPUSCULAR VOLUME 92 fL (79-100); MONO % 8 % (0-9); NEUT % 66 % (31-73); PLATELET COUNT 256 x10^3/uL (140-400); RED BLOOD COUNT 4.27 x10^6/uL (3.50-5.40); RED CELL DISTRIBUTION WIDTH 12.7 % (11.5-14.5); WHITE BLOOD COUNT 14.4 x10^3/uL (4.0-11.0)
[2017-04-04 06:19] LABS: CALCIUM 8.7 mg/dL (8.5-10.1); CREATININE 0.8 mg/dL (0.6-1.0); GFR 71.3; POTASSIUM 3.7 mmol/L (3.5-5.1)
[2017-04-04 07:30] VITALS: BP 154/71
[2017-04-04] MEDS: ASPIRIN ENTERIC COATED 325 MG TABLET.DR. PO SCH (08:49)
[2017-04-04] MEDS: SENNOSIDES/DOCUSATE 8.6/50MG TABLET. PO SCH ×2 (08:49→20:41)
[2017-04-04] MEDS: MORPHINE SULFATE 2 MG/ML DISP.SYRIN. IV PRN ×2 (08:51→13:59)
[2017-04-04] MEDS: DOCUSATE SODIUM 100 MG CAPSULE. PO SCH ×2 (08:51→20:41)
[2017-04-04] MEDS: INSULIN ASPART 300 UNITS/3 ML INSULN.PEN SQ SCH ×6 (09:06→17:30)
[2017-04-04 11:00] VITALS: BP 126/61
--- NOTE | 2017-04-04 14:02 | PDOC ---
PROGRESS NOTES Assessment Assessment Subacute right BG, goldsmith radiata and right hemisphere infracts. Metabolic encephalopathy. Left side hemiplegia. 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 DM HTN HLD Obesity. UTI RECOMMENDATIONS/PLAN: Continue ASA 325 mg daily. Continue Lipitor, increase to 40 mg HS. Vascular Surgery consulted and no indication for surgical intervention. OT/PT Rehab. Discussed with her family at bedside on 04/04/17.. Past Medical History Cardiovascular: HTN CENTRAL NERVOUS SYSTEM: Other (headaches) GI: Other (she has been having some abdominal pain) Endocrine: Diabetes Past Surgical History Family History Hypertension Social History , used to smoke and uses alcohol but none in the last several years. ALLERGY: Reviewed. MEDICATIONS: Refer to MAR REVIEW OF SYSTEMS: Constitutional: No malnutrition, weight loss, cachexia. Head: No traumatic brain or head injury. Skin: No edema, or rash. Ear: No infection. Eyes: No vision loss, or diplopia. Nose: No bleeding or purulent discharges. Hearing: No hearing decrease. Neck: No injury. Breast: No history of cancer, masses, or discharges. Cardiac: HTN, HLD Pulmonary: No CPOD. GI: No GI Ulcer, GI bleeding Urinary/genital: UTI. Endocrine: Diabetes Mellitus, obesity. Skeletomuscular: No muscular atrophy, deformity. Neurological: see HP. Psychiatric: Denies drug use/abuse. Otherwise, not [id number] review of systems. PHYSICAL EXAMINATION: General appearance in subacute distress. HEENT: Normocephalic and nontraumatic. Eyes, nose, ears, and throat are unremarkable. Neck is supple. No lymphadenopathy. No No Crepitus. Cardiovascular: S1, S2, regular rate and rhythm. Pulmonary: No rails heard to auscultation bilaterally. Abdomen: Bowel sounds are positive. Extremities: No rash, lesions, or edema. NEUROLOGICAL EXAMINATION: Awake. Able to follow a few commands with Malay translation by her son at bedside. Not oriented to time, place but knows her family members. PERRL. EOMI but slow. Gaze deviation to right side. CN: left VII palsy. Muscle tone: within normal. Muscle strength: 1 left UE, 1-2 left LE, 5- right side. DTR: 1+ Left UE and LE Plantar reflex: left side extensor response, right side neutral response. Gait: Unable to walk. Sensory exam: decreased in left UE and LE. No acute cerebellar signs elicited. F-T-N test not performed due to not follow commands. Objective Objective Vital Signs Date Time Temp Pulse Resp B/P (MAP) Pulse Ox O2 Delivery O2 Flow Rate FiO2 04/04/17 11:00 98.1 61 14 126/61 (82) 93 Room Air 98.1 04/04/17 09:21 2.0 Intake and Output 04/05/17 07:00 Intake Total 260 ml Balance 260 ml Tube Feeding 260 ml Vitals Signs Vitals VS - Last 72 Hours, by Label Date Time Temp Pulse Resp B/P (MAP) Pulse Ox O2 Delivery O2 Flow Rate FiO2 04/04/17 11:00 98.1 61 14 126/61 (82) 93 Room Air 98.1 04/04/17 09:21 16 98 Room Air 2.0 04/04/17 08:51 16 98 Room Air 2.0 04/04/17 08:00 Room Air 04/04/17 07:30 98.4 57 18 154/71 (98) 95 Room Air 98.4 04/04/17 03:00 97.9 62 22 134/70 (91) 98 Room Air 97.9 04/03/17 23:00 98.1 56 22 115/41 (65) 96 Room Air 98.1 04/03/17 20:00 Room Air 04/03/17 19:00 98.6 64 22 147/60 (89) 95 Room Air 98.6 04/03/17 15:00 98.0 85 18 139/41 (73) 96 Room Air 98.0 04/03/17 11:00 98.7 68 18 121/71 (88) 97 Room Air 98.7 04/03/17 08:00 Room Air 04/03/17 07:00 98.3 67 18 150/61 (90) 96 Room Air 98.3 Laboratory Laboratory Laboratory Tests Test 04/03/17 16:16 04/03/17 21:04 04/04/17 04:05 04/04/17 08:51 Glucose (Fingerstick) 123 mg/dL (70-99) 107 mg/dL (70-99) 181 mg/dL (70-99) White Blood Count 14.4 x10^3/uL (4.0-11.0) Red Blood Count 4.27 x10^6/uL (3.50-5.40) Hemoglobin 12.8 g/dL (12.0-15.5) Hematocrit 39.2 % (36.0-47.0) Mean Corpuscular Volume 92 fL (79-100) Mean Corpuscular Hemoglobin 30 pg (25-35) Mean Corpuscular Hemoglobin Concent 33 g/dL (31-37) Red Cell Distribution Width 12.7 % (11.5-14.5) Platelet Count 256 x10^3/uL (140-400) Neutrophils (%) (Auto) 66 % (31-73) Lymphocytes (%) (Auto) 20 % (24-48) Monocytes (%) (Auto) 8 % (0-9) Eosinophils (%) (Auto) 6 % (0-3) Basophils (%) (Auto) 1 % (0-3) Neutrophils # (Auto) 9.5 x10^3uL (1.8-7.7) Lymphocytes # (Auto) 2.8 x10^3/uL (1.0-4.8) Monocytes # (Auto) 1.1 x10^3/uL (0.0-1.1) Eosinophils # (Auto) 0.8 x10^3/uL (0.0-0.7) Basophils # (Auto) 0.1 x10^3/uL (0.0-0.2) Sodium Level 138 mmol/L (136-145) Potassium Level 3.7 mmol/L (3.5-5.1) Chloride Level 102 mmol/L (98-107) Carbon Dioxide Level 30 mmol/L (21-32) Anion Gap 6 (6-14) Blood Urea Nitrogen 21 mg/dL (7-20) Creatinine 0.8 mg/dL (0.6-1.0) Estimated GFR (Cockcroft-Gault) 71.3 Glucose Level 149 mg/dL (70-99) Calcium Level 8.7 mg/dL (8.5-10.1) Test 04/04/17 12:01 Glucose (Fingerstick) 149 mg/dL (70-99) Microbiology 04/03/17 Blood Culture - Preliminary, Resulted NO GROWTH AFTER 1 DAY Medication Medications Current Medications Insulin Aspart (NovoLOG) 7 units TIDAC SQ Last administered on 04/04/17 12:30; Start 04/03/17 at 16:30 Insulin Detemir (Levemir) 20 units QHS SQ Last administered on 04/03/17 21:37; Start 04/03/17 at 21:00 Comment Review of Relevant I have reviewed the following items tamie (where applicable) has been applied. REEMA CARTER MD Apr 04, 2017 14:02
--- NOTE | 2017-04-04 14:57 | PDOC ---
PROGRESS NOTES Chief Complaint Chief Complaint CVA with left sided weakness hld htn Type 2 DM - uncontrolled Obesity Not compliant with meds leukocytosis, reactive? constipation hypokalemia plan: fu with gi, neuro on ASA, lipitor through PEG ON peg, DC ppn dc abx add stool softner SW fu for SNF, waiting for plan pat consulted recheck UA, UCX since leukocytosis, repeat CXR still neg. check bcx replete K SSI, add levemir 20u qhs, aspart 7u tid add scopolamine patch talked to family at bedside x10min History of Present Illness History of Present Illness ROS: no chills, sob or chest pain. T 99.5 Pt speaks chukese, granddaughter at bedside and helping translate. Pt is laying in bed, not handling secretions well. PEG dry and clean, no erythema. Family meeting scheduled for today at 11 am with Pallative care to discuss intermediate goals of care. Per GI, resume lovenox today, ok to feed through PEG could move left lower ext, cannot move since Wednesday high WBC at 15, down to 14 hyperglycemia Vitals Vitals Vital Signs Date Time Temp Pulse Resp B/P (MAP) Pulse Ox O2 Delivery O2 Flow Rate FiO2 04/04/17 14:29 16 93 Room Air 04/04/17 11:00 98.1 61 126/61 (82) 98.1 04/04/17 09:21 2.0 Physical Exam General: Alert, Cooperative, Other (arousable and following commands) Heart: Regular rate Lungs: Clear Abdomen: Soft, No tenderness Extremities: No clubbing, No cyanosis, No edema, Other (left arm paralyzed, left leg can move a little bit) Skin: No rashes, No breakdown Labs LABS Laboratory Tests Test 04/03/17 16:16 04/03/17 21:04 04/04/17 04:05 04/04/17 08:51 Glucose (Fingerstick) 123 mg/dL (70-99) 107 mg/dL (70-99) 181 mg/dL (70-99) White Blood Count 14.4 x10^3/uL (4.0-11.0) Red Blood Count 4.27 x10^6/uL (3.50-5.40) Hemoglobin 12.8 g/dL (12.0-15.5) Hematocrit 39.2 % (36.0-47.0) Mean Corpuscular Volume 92 fL (79-100) Mean Corpuscular Hemoglobin 30 pg (25-35) Mean Corpuscular Hemoglobin Concent 33 g/dL (31-37) Red Cell Distribution Width 12.7 % (11.5-14.5) Platelet Count 256 x10^3/uL (140-400) Neutrophils (%) (Auto) 66 % (31-73) Lymphocytes (%) (Auto) 20 % (24-48) Monocytes (%) (Auto) 8 % (0-9) Eosinophils (%) (Auto) 6 % (0-3) Basophils (%) (Auto) 1 % (0-3) Neutrophils # (Auto) 9.5 x10^3uL (1.8-7.7) Lymphocytes # (Auto) 2.8 x10^3/uL (1.0-4.8) Monocytes # (Auto) 1.1 x10^3/uL (0.0-1.1) Eosinophils # (Auto) 0.8 x10^3/uL (0.0-0.7) Basophils # (Auto) 0.1 x10^3/uL (0.0-0.2) Sodium Level 138 mmol/L (136-145) Potassium Level 3.7 mmol/L (3.5-5.1) Chloride Level 102 mmol/L (98-107) Carbon Dioxide Level 30 mmol/L (21-32) Anion Gap 6 (6-14) Blood Urea Nitrogen 21 mg/dL (7-20) Creatinine 0.8 mg/dL (0.6-1.0) Estimated GFR (Cockcroft-Gault) 71.3 Glucose Level 149 mg/dL (70-99) Calcium Level 8.7 mg/dL (8.5-10.1) Test 04/04/17 12:01 Glucose (Fingerstick) 149 mg/dL (70-99) Assessment and Plan Assessmemt and Plan Problems Medical Problems: (1) CVA (cerebral vascular accident) Status: Acute Problems: Comment Review of Relevant I have reviewed the following items tamie (where applicable) has been applied. Labs Laboratory Tests Test 04/02/17 18:21 04/03/17 00:48 04/03/17 06:33 04/03/17 07:57 Glucose (Fingerstick) 162 mg/dL (70-99) 160 mg/dL (70-99) 176 mg/dL (70-99) 184 mg/dL (70-99) Test 04/03/17 08:00 04/03/17 10:30 04/03/17 11:27 04/03/17 16:16 White Blood Count 14.7 x10^3/uL (4.0-11.0) Red Blood Count 4.43 x10^6/uL (3.50-5.40) Hemoglobin 13.3 g/dL (12.0-15.5) Hematocrit 40.6 % (36.0-47.0) Mean Corpuscular Volume 92 fL (79-100) Mean Corpuscular Hemoglobin 30 pg (25-35) Mean Corpuscular Hemoglobin Concent 33 g/dL (31-37) Red Cell Distribution Width 12.7 % (11.5-14.5) Platelet Count 253 x10^3/uL (140-400) Neutrophils (%) (Auto) 69 % (31-73) Lymphocytes (%) (Auto) 17 % (24-48) Monocytes (%) (Auto) 8 % (0-9) Eosinophils (%) (Auto) 5 % (0-3) Basophils (%) (Auto) 1 % (0-3) Neutrophils # (Auto) 10.2 x10^3uL (1.8-7.7) Lymphocytes # (Auto) 2.5 x10^3/uL (1.0-4.8) Monocytes # (Auto) 1.1 x10^3/uL (0.0-1.1) Eosinophils # (Auto) 0.8 x10^3/uL (0.0-0.7) Basophils # (Auto) 0.1 x10^3/uL (0.0-0.2) Sodium Level 138 mmol/L (136-145) Potassium Level 4.0 mmol/L (3.5-5.1) Chloride Level 102 mmol/L (98-107) Carbon Dioxide Level 31 mmol/L (21-32) Anion Gap 5 (6-14) Blood Urea Nitrogen 22 mg/dL (7-20) Creatinine 0.9 mg/dL (0.6-1.0) Estimated GFR (Cockcroft-Gault) 62.3 Glucose Level 214 mg/dL (70-99) Calcium Level 8.6 mg/dL (8.5-10.1) Urine Collection Type Unknown Urine Color Yellow Urine Clarity Clear Urine pH 6.5 Urine Specific [place] >=1.030 Urine Protein Negative mg/dL (NEG-TRACE) Urine Glucose (UA) Negative mg/dL (NEG) Urine Ketones (Stick) Negative mg/dL (NEG) Urine Blood Negative (NEG) Urine Nitrite Negative (NEG) Urine Bilirubin Negative (NEG) Urine Urobilinogen Dipstick 1.0 mg/dL (0.2 mg/dL) Urine Leukocyte Esterase Negative (NEG) Urine RBC Occ /HPF (0-2) Urine WBC Occ /HPF (0-4) Urine Squamous Epithelial Cells Few /LPF Urine Bacteria 0 /HPF (0-FEW) Urine Mucus Mod /LPF Glucose (Fingerstick) 183 mg/dL (70-99) 123 mg/dL (70-99) Test 04/03/17 21:04 04/04/17 04:05 04/04/17 08:51 04/04/17 12:01 Glucose (Fingerstick) 107 mg/dL (70-99) 181 mg/dL (70-99) 149 mg/dL (70-99) White Blood Count 14.4 x10^3/uL (4.0-11.0) Red Blood Count 4.27 x10^6/uL (3.50-5.40) Hemoglobin 12.8 g/dL (12.0-15.5) Hematocrit 39.2 % (36.0-47.0) Mean Corpuscular Volume 92 fL (79-100) Mean Corpuscular Hemoglobin 30 pg (25-35) Mean Corpuscular Hemoglobin Concent 33 g/dL (31-37) Red Cell Distribution Width 12.7 % (11.5-14.5) Platelet Count 256 x10^3/uL (140-400) Neutrophils (%) (Auto) 66 % (31-73) Lymphocytes (%) (Auto) 20 % (24-48) Monocytes (%) (Auto) 8 % (0-9) Eosinophils (%) (Auto) 6 % (0-3) Basophils (%) (Auto) 1 % (0-3) Neutrophils # (Auto) 9.5 x10^3uL (1.8-7.7) Lymphocytes # (Auto) 2.8 x10^3/uL (1.0-4.8) Monocytes # (Auto) 1.1 x10^3/uL (0.0-1.1) Eosinophils # (Auto) 0.8 x10^3/uL (0.0-0.7) Basophils # (Auto) 0.1 x10^3/uL (0.0-0.2) Sodium Level 138 mmol/L (136-145) Potassium Level 3.7 mmol/L (3.5-5.1) Chloride Level 102 mmol/L (98-107) Carbon Dioxide Level 30 mmol/L (21-32) Anion Gap 6 (6-14) Blood Urea Nitrogen 21 mg/dL (7-20) Creatinine 0.8 mg/dL (0.6-1.0) Estimated GFR (Cockcroft-Gault) 71.3 Glucose Level 149 mg/dL (70-99) Calcium Level 8.7 mg/dL (8.5-10.1) Laboratory Tests Test 04/03/17 16:16 04/03/17 21:04 04/04/17 04:05 04/04/17 08:51 Glucose (Fingerstick) 123 mg/dL (70-99) 107 mg/dL (70-99) 181 mg/dL (70-99) White Blood Count 14.4 x10^3/uL (4.0-11.0) Red Blood Count 4.27 x10^6/uL (3.50-5.40) Hemoglobin 12.8 g/dL (12.0-15.5) Hematocrit 39.2 % (36.0-47.0) Mean Corpuscular Volume 92 fL (79-100) Mean Corpuscular Hemoglobin 30 pg (25-35) Mean Corpuscular Hemoglobin Concent 33 g/dL (31-37) Red Cell Distribution Width 12.7 % (11.5-14.5) Platelet Count 256 x10^3/uL (140-400) Neutrophils (%) (Auto) 66 % (31-73) Lymphocytes (%) (Auto) 20 % (24-48) Monocytes (%) (Auto) 8 % (0-9) Eosinophils (%) (Auto) 6 % (0-3) Basophils (%) (Auto) 1 % (0-3) Neutrophils # (Auto) 9.5 x10^3uL (1.8-7.7) Lymphocytes # (Auto) 2.8 x10^3/uL (1.0-4.8) Monocytes # (Auto) 1.1 x10^3/uL (0.0-1.1) Eosinophils # (Auto) 0.8 x10^3/uL (0.0-0.7) Basophils # (Auto) 0.1 x10^3/uL (0.0-0.2) Sodium Level 138 mmol/L (136-145) Potassium Level 3.7 mmol/L (3.5-5.1) Chloride Level 102 mmol/L (98-107) Carbon Dioxide Level 30 mmol/L (21-32) Anion Gap 6 (6-14) Blood Urea Nitrogen 21 mg/dL (7-20) Creatinine 0.8 mg/dL (0.6-1.0) Estimated GFR (Cockcroft-Gault) 71.3 Glucose Level 149 mg/dL (70-99) Calcium Level 8.7 mg/dL (8.5-10.1) Test 04/04/17 12:01 Glucose (Fingerstick) 149 mg/dL (70-99) Microbiology 04/03/17 Blood Culture - Preliminary, Resulted NO GROWTH AFTER 1 DAY Medications Current Medications Insulin Aspart (NovoLOG) 0-5 UNITS TIDWMEALS SQ Last administered on 03/31/17 17:31; Start 03/24/17 at 17:00; Stop 04/01/17 at 09:20; Status DC Dextrose (Dextrose 50%-Water Syringe) 12.5 gm PRN Q15MIN PRN IV SEE COMMENTS; Start 03/24/17 at 12:30 Ceftriaxone Sodium 50 ml @ 100 mls/hr 1X ONCE IV Last administered on 13:33; Start 03/24/17 at 13:30; Stop 03/24/17 at 13:59; Status DC Ceftriaxone Sodium 1 gm/ Sodium Chloride 50 ml @ 100 mls/hr Q24H IV Last administered on 03/30/17 13:23; Start 03/25/17 at 14:00; Stop 03/31/17 at 14:28 ; Status DC Ondansetron HCl (Zofran) 4 mg PRN Q8HRS PRN IV NAUSEA/VOMITING; Start 03/24/17 at 13:30; Stop 03/25/17 at 13:29; Status DC Sodium Chloride 1,000 ml @ 125 mls/hr Q8H IV Last administered on 03/24/17 13 :37; Start 03/24/17 at 13:45; Stop 03/25/17 at 08:53; Status DC Aspirin (Aspirin) 300 mg 1X ONCE SC Last administered on 03/24/17 13:45; Start 03/24/17 at 13:45; Stop 03/24/17 at 13:46; Status DC Sodium Chloride (Normal Saline Flush) 3 ml QSHIFT PRN IV AFTER MEDS AND BLOOD DRAWS; Start 03/24/17 at 13:45 Sodium Chloride 1,000 ml @ 100 mls/hr Q10H IV Last administered on 03/25/17 01:22; Start 03/24/17 at 14:00; Stop 03/25/17 at 08:53; Status DC Aspirin (Ecotrin) 325 mg [id number] PO Last administered on 04/04/17 08:49; Start 03/25/17 at 08:00 Atorvastatin Calcium (Lipitor) 20 mg QHS PO Last administered on 04/03/17 21:25 ; Start 03/24/17 at 21:00; Stop 04/04/17 at 14:01; Status DC Labetalol HCl (Normodyne) 10 mg PRN Q10MIN PRN IV HYPERTENSION, SEE COMMENTS Last administered on 03/25/17 20:08; Start 03/24/17 at 13:45 Acetaminophen (Tylenol) 650 mg PRN Q6HRS PRN PO FEVER; Start 03/24/17 at 13:45 ; Stop 03/29/17 at 21:13; Status DC Acetaminophen (Acetaminophen Supp) 650 mg PRN Q6HRS PRN SC FEVER Last administered on 03/28/17 21:42; Start 03/24/17 at 13:45; Stop 03/31/17 at 14:28 ; Status DC Enoxaparin Sodium (Lovenox 40mg Syringe) 40 mg Q24H SQ Last administered on 15:26; Start 03/24/17 at 15:00; Stop 03/29/17 at 08:44; Status DC Iohexol (Omnipaque 350 Mg/ml) 60 ml 1X ONCE IV Last administered on 03/24/17 16:25; Start 03/24/17 at 16:15; Stop 03/24/17 at 16:20; Status DC Info (Do NOT chart on this entry -- for MONITORING) 1 each PRN DAILY PRN MC SEE COMMENTS; Start 03/24/17 at 16:30; Stop 03/26/17 at 16:29; Status DC Ondansetron HCl (Zofran) 4 mg PRN Q6HRS PRN IV NAUSEA/VOMITING; Start 03/24/17 at 16:30 Amino Acids/ Glycerin/ Electrolytes 1,000 ml @ 80 mls/hr [id number] IV Last administered on 03/31/17 03:34; Start 03/25/17 at 09:30; Stop 03/31/17 at 12:13 ; Status DC Barium Sulfate (Varibar Thin Liquid Apple) 148 gm 1X ONCE PO Last administered on 03/26/17 13:30; Start 03/26/17 at 13:30; Stop 03/26/17 at 13:31 ; Status DC Ringer's Solution 1,000 ml @ 50 mls/hr Q20H IV ; Start 03/29/17 at 07:00; Stop 03/29/17 at 07:28; Status DC Diphenhydramine HCl (Benadryl) 25 mg PRN Q6HRS PRN IVP ITCHING Last administered on 04/03/17 13:24; Start 03/26/17 at 23:00 Potassium Chloride 50 ml @ 50 mls/hr Q1H IV ; Start 03/27/17 at 13:00; Stop at 14:59; Status UNV Potassium Chloride 100 ml @ 100 mls/hr Q1H IV Last administered on 03/27/17 19:45; Start 03/27/17 at 13:00; Stop 03/27/17 at 16:59; Status DC Ringer's Solution 1,000 ml @ 50 mls/hr Q20H IV ; Start 03/29/17 at 13:00; Stop 03/29/17 at 19:13; Status DC Midazolam HCl (Versed) 2 mg PRN 1X PRN IV PRIOR TO PROCEDURE; Start 03/29/17 at 12:15; Stop 03/29/17 at 15:49; Status DC Fentanyl Citrate (Fentanyl 2ml Vial) 25 mcg PRN Q5MIN PRN IV X 2 DOSES FOR PAIN ; Start 03/29/17 at 12:15; Stop 03/29/17 at 15:49; Status DC Fentanyl Citrate (Fentanyl 2ml Vial) 50 mcg PRN Q5MIN PRN IV X 2 DOSES FOR PAIN ; Start 03/29/17 at 12:15; Stop 03/29/17 at 15:49; Status DC Ringer's Solution 1,000 ml @ 125 mls/hr Q8H IV Last administered on 03/29/17 12:38; Start 03/29/17 at 12:07; Stop 03/29/17 at 17:31; Status DC Lidocaine HCl 2 ml 1X PRN PRN ID IV START; Start 03/29/17 at 12:15; Stop at 12:14; Status DC Propofol 20 ml @ As Directed STK-MED ONCE IV ; Start 03/29/17 at 12:29; Stop at 12:30; Status DC Morphine Sulfate 1 mg PRN Q2HR PRN IV PAIN Last administered on 04/04/17 13:59 ; Start 03/29/17 at 16:15 Morphine Sulfate 2 mg PRN Q2HR PRN IV PAIN Last administered on 04/03/17 02:41 ; Start 03/29/17 at 16:15 Acetaminophen (Tylenol) 650 mg PRN Q6HRS PRN PEG MILD PAIN / TEMP Last administered on 04/03/17 21:25; Start 03/29/17 at 21:15 Senna/Docusate Sodium (Senna Plus) 1 tab BID PO Last administered on 04/04/17 08:49; Start 03/31/17 at 21:00 Docusate Sodium (Colace) 100 mg BID PO Last administered on 04/04/17 08:51; Start 03/31/17 at 21:00 Magnesium Hydroxide (Milk Of Magnesia) 2,400 mg PRN Q12HR PRN PO CONSTIPATION; Start 03/31/17 at 12:15 Potassium Chloride (KCl Oral Soln) 40 meq 1X ONCE PEG Last administered on 11:30; Start 04/01/17 at 11:15; Stop 04/01/17 at 11:16; Status DC Insulin Aspart (NovoLOG) 0-9 UNITS TIDWMEALS SQ Last administered on 04/04/17 09:06; Start 04/01/17 at 12:00 Dextrose (Dextrose 50%-Water Syringe) 12.5 gm PRN Q15MIN PRN IV SEE COMMENTS; Start 04/01/17 at 11:15; Status UNV Insulin Detemir (Levemir) 10 units QHS SQ Last administered on 04/01/17 21:49 ; Start 04/01/17 at 21:00; Stop 04/02/17 at 08:18; Status DC Insulin Detemir (Levemir) 15 units QHS SQ Last administered on 04/02/17 21:21; Start 04/02/17 at 21:00; Stop 04/03/17 at 13:21; Status DC Insulin Aspart (NovoLOG) 5 units TIDAC SQ Last administered on 04/03/17 12:49; Start 04/02/17 at 11:30; Stop 04/03/17 at 13:21; Status DC Scopolamine (Transderm-Scop) 1 patch Q3DAYS TD Last administered on 04/02/17 10 :22; Start 04/02/17 at 10:00 Insulin Aspart (NovoLOG) 7 units TIDAC SQ Last administered on 04/04/17 12:30; Start 04/03/17 at 16:30 Insulin Detemir (Levemir) 20 units QHS SQ Last administered on 04/03/17 21:37; Start 04/03/17 at 21:00 Atorvastatin Calcium (Lipitor) 40 mg QHS PO ; Start 04/04/17 at 21:00 Active Scripts Active Reported Atorvastatin Calcium 40 Mg Tablet 1 Tab PO DAILY Losartan Potassium 100 Mg Tablet 100 Mg PO DAILY Aspir 81 (Aspirin) 81 Mg Tablet. 1 Tab PO DAILY Vitals/I & O Vital Sign - Last 24 Hours 04/03/17 04/03/17 04/03/17 04/03/17 15:00 19:00 20:00 23:00 Temp 98.0 98.6 98.1 98.0 98.6 98.1 Pulse 85 64 56 Resp 18 22 22 B/P (MAP) 139/41 (73) 147/60 (89) 115/41 (65) Pulse Ox 96 95 96 O2 Delivery Room Air Room Air Room Air Room Air 04/04/17 04/04/17 04/04/17 04/04/17 03:00 07:30 08:00 08:51 Temp 97.9 98.4 97.9 98.4 Pulse 62 57 Resp 22 18 16 B/P (MAP) 134/70 (91) 154/71 (98) Pulse Ox 98 95 98 O2 Delivery Room Air Room Air Room Air Room Air O2 Flow Rate 2.0 04/04/17 04/04/17 04/04/17 04/04/17 09:21 11:00 13:59 14:29 Temp 98.1 98.1 Pulse 61 Resp 14 16 16 B/P (MAP) 126/61 (82) Pulse Ox 93 93 93 O2 Delivery Room Air Room Air Room Air O2 Flow Rate 2.0 Intake and Output 04/04/17 04/04/17 04/05/17 15:00 23:00 07:00 Intake Total 260 ml Balance 260 ml ANA WOODSON MD Apr 04, 2017 14:57
[2017-04-04 15:00] VITALS: BP 133/54
[2017-04-04 19:05] VITALS: BP 128/70
[2017-04-04] MEDS: ATORVASTATIN CALCIUM 40 MG TABLET. PO SCH (20:43)
[2017-04-04] MEDS: INSULIN DETEMIR 300 UNITS/3 ML INSULN.PEN. SQ SCH (20:53)
[2017-04-04 23:05] VITALS: BP 143/75
[2017-04-05 03:10] VITALS: BP_SYST 144; BP_SYST 148; BP_DIAS 65; BP_DIAS 66
[2017-04-05 06:37] LABS: BASO # 0.1 x10^3/uL (0.0-0.2); BASO % 1 % (0-3); EOS % 3 % (0-3); HEMATOCRIT 43.5 % (36.0-47.0); LYMPH # 1.7 x10^3/uL (1.0-4.8); LYMPH % 12 % (24-48); MEAN CORPUSCULAR HEMOGLOBIN 31 pg (25-35); MEAN CORPUSCULAR HGB CONC 35 g/dL (31-37); MEAN CORPUSCULAR VOLUME 91 fL (79-100); MONO % 6 % (0-9); NEUT % 79 % (31-73); PLATELET COUNT 286 x10^3/uL (140-400); RED BLOOD COUNT 4.79 x10^6/uL (3.50-5.40); RED CELL DISTRIBUTION WIDTH 12.8 % (11.5-14.5); WHITE BLOOD COUNT 15.2 x10^3/uL (4.0-11.0)
[2017-04-05 06:54] LABS: CALCIUM 9.2 mg/dL (8.5-10.1); CREATININE 0.8 mg/dL (0.6-1.0); GFR 71.3; POTASSIUM 3.9 mmol/L (3.5-5.1)
[2017-04-05 07:11] VITALS: BP 147/76
[2017-04-05] MEDS: SENNOSIDES/DOCUSATE 8.6/50MG TABLET. PO SCH ×2 (09:00→20:38)
[2017-04-05] MEDS: DOCUSATE SODIUM 100 MG CAPSULE. PO SCH ×2 (09:00→20:38)
[2017-04-05] MEDS: ASPIRIN ENTERIC COATED 325 MG TABLET.DR. PO SCH (09:16)
[2017-04-05] MEDS: SCOPOLAMINE 1.5MG PATCH. TD SCH (09:16)
[2017-04-05] MEDS: INSULIN ASPART 300 UNITS/3 ML INSULN.PEN SQ SCH ×6 (09:38→17:42)
--- NOTE | 2017-04-05 10:22 | PDOC ---
G I PROGRESS NOTE Subjective Awaiting placement. Tube feeding apparently going well. Physical Exam Lungs clear. RRR Abdomen soft, not tender nor distended. PEG site OK. Review of Relevant I have reviewed the following items tamie (where applicable) has been applied. Labs Laboratory Tests Test 04/03/17 10:30 04/03/17 11:27 04/03/17 16:16 04/03/17 21:04 Urine Collection Type Unknown Urine Color Yellow Urine Clarity Clear Urine pH 6.5 Urine Specific [place] >=1.030 Urine Protein Negative mg/dL (NEG-TRACE) Urine Glucose (UA) Negative mg/dL (NEG) Urine Ketones (Stick) Negative mg/dL (NEG) Urine Blood Negative (NEG) Urine Nitrite Negative (NEG) Urine Bilirubin Negative (NEG) Urine Urobilinogen Dipstick 1.0 mg/dL (0.2 mg/dL) Urine Leukocyte Esterase Negative (NEG) Urine RBC Occ /HPF (0-2) Urine WBC Occ /HPF (0-4) Urine Squamous Epithelial Cells Few /LPF Urine Bacteria 0 /HPF (0-FEW) Urine Mucus Mod /LPF Glucose (Fingerstick) 183 mg/dL (70-99) 123 mg/dL (70-99) 107 mg/dL (70-99) Test 04/04/17 04:05 04/04/17 08:51 04/04/17 12:01 04/04/17 16:31 White Blood Count 14.4 x10^3/uL (4.0-11.0) Red Blood Count 4.27 x10^6/uL (3.50-5.40) Hemoglobin 12.8 g/dL (12.0-15.5) Hematocrit 39.2 % (36.0-47.0) Mean Corpuscular Volume 92 fL (79-100) Mean Corpuscular Hemoglobin 30 pg (25-35) Mean Corpuscular Hemoglobin Concent 33 g/dL (31-37) Red Cell Distribution Width 12.7 % (11.5-14.5) Platelet Count 256 x10^3/uL (140-400) Neutrophils (%) (Auto) 66 % (31-73) Lymphocytes (%) (Auto) 20 % (24-48) Monocytes (%) (Auto) 8 % (0-9) Eosinophils (%) (Auto) 6 % (0-3) Basophils (%) (Auto) 1 % (0-3) Neutrophils # (Auto) 9.5 x10^3uL (1.8-7.7) Lymphocytes # (Auto) 2.8 x10^3/uL (1.0-4.8) Monocytes # (Auto) 1.1 x10^3/uL (0.0-1.1) Eosinophils # (Auto) 0.8 x10^3/uL (0.0-0.7) Basophils # (Auto) 0.1 x10^3/uL (0.0-0.2) Sodium Level 138 mmol/L (136-145) Potassium Level 3.7 mmol/L (3.5-5.1) Chloride Level 102 mmol/L (98-107) Carbon Dioxide Level 30 mmol/L (21-32) Anion Gap 6 (6-14) Blood Urea Nitrogen 21 mg/dL (7-20) Creatinine 0.8 mg/dL (0.6-1.0) Estimated GFR (Cockcroft-Gault) 71.3 Glucose Level 149 mg/dL (70-99) Calcium Level 8.7 mg/dL (8.5-10.1) Glucose (Fingerstick) 181 mg/dL (70-99) 149 mg/dL (70-99) 116 mg/dL (70-99) Test 04/04/17 20:40 04/05/17 05:00 04/05/17 06:10 04/05/17 07:17 Glucose (Fingerstick) 145 mg/dL (70-99) 222 mg/dL (70-99) White Blood Count 15.2 x10^3/uL (4.0-11.0) Red Blood Count 4.79 x10^6/uL (3.50-5.40) Hemoglobin 15.0 g/dL (12.0-15.5) Hematocrit 43.5 % (36.0-47.0) Mean Corpuscular Volume 91 fL (79-100) Mean Corpuscular Hemoglobin 31 pg (25-35) Mean Corpuscular Hemoglobin Concent 35 g/dL (31-37) Red Cell Distribution Width 12.8 % (11.5-14.5) Platelet Count 286 x10^3/uL (140-400) Neutrophils (%) (Auto) 79 % (31-73) Lymphocytes (%) (Auto) 12 % (24-48) Monocytes (%) (Auto) 6 % (0-9) Eosinophils (%) (Auto) 3 % (0-3) Basophils (%) (Auto) 1 % (0-3) Neutrophils # (Auto) 12.0 x10^3uL (1.8-7.7) Lymphocytes # (Auto) 1.7 x10^3/uL (1.0-4.8) Monocytes # (Auto) 0.9 x10^3/uL (0.0-1.1) Eosinophils # (Auto) 0.5 x10^3/uL (0.0-0.7) Basophils # (Auto) 0.1 x10^3/uL (0.0-0.2) Sodium Level 136 mmol/L (136-145) Potassium Level 3.9 mmol/L (3.5-5.1) Chloride Level 98 mmol/L (98-107) Carbon Dioxide Level 30 mmol/L (21-32) Anion Gap 8 (6-14) Blood Urea Nitrogen 18 mg/dL (7-20) Creatinine 0.8 mg/dL (0.6-1.0) Estimated GFR (Cockcroft-Gault) 71.3 Glucose Level 239 mg/dL (70-99) Calcium Level 9.2 mg/dL (8.5-10.1) Laboratory Tests Test 04/04/17 12:01 04/04/17 16:31 04/04/17 20:40 04/05/17 05:00 Glucose (Fingerstick) 149 mg/dL (70-99) 116 mg/dL (70-99) 145 mg/dL (70-99) White Blood Count 15.2 x10^3/uL (4.0-11.0) Red Blood Count 4.79 x10^6/uL (3.50-5.40) Hemoglobin 15.0 g/dL (12.0-15.5) Hematocrit 43.5 % (36.0-47.0) Mean Corpuscular Volume 91 fL (79-100) Mean Corpuscular Hemoglobin 31 pg (25-35) Mean Corpuscular Hemoglobin Concent 35 g/dL (31-37) Red Cell Distribution Width 12.8 % (11.5-14.5) Platelet Count 286 x10^3/uL (140-400) Neutrophils (%) (Auto) 79 % (31-73) Lymphocytes (%) (Auto) 12 % (24-48) Monocytes (%) (Auto) 6 % (0-9) Eosinophils (%) (Auto) 3 % (0-3) Basophils (%) (Auto) 1 % (0-3) Neutrophils # (Auto) 12.0 x10^3uL (1.8-7.7) Lymphocytes # (Auto) 1.7 x10^3/uL (1.0-4.8) Monocytes # (Auto) 0.9 x10^3/uL (0.0-1.1) Eosinophils # (Auto) 0.5 x10^3/uL (0.0-0.7) Basophils # (Auto) 0.1 x10^3/uL (0.0-0.2) Test 04/05/17 06:10 04/05/17 07:17 Sodium Level 136 mmol/L (136-145) Potassium Level 3.9 mmol/L (3.5-5.1) Chloride Level 98 mmol/L (98-107) Carbon Dioxide Level 30 mmol/L (21-32) Anion Gap 8 (6-14) Blood Urea Nitrogen 18 mg/dL (7-20) Creatinine 0.8 mg/dL (0.6-1.0) Estimated GFR (Cockcroft-Gault) 71.3 Glucose Level 239 mg/dL (70-99) Calcium Level 9.2 mg/dL (8.5-10.1) Glucose (Fingerstick) 222 mg/dL (70-99) Microbiology 04/03/17 Blood Culture - Preliminary, Resulted NO GROWTH AFTER 1 DAY Medications Current Medications Insulin Aspart (NovoLOG) 0-5 UNITS TIDWMEALS SQ Last administered on 03/31/17 17:31; Start 03/24/17 at 17:00; Stop 04/01/17 at 09:20; Status DC Dextrose (Dextrose 50%-Water Syringe) 12.5 gm PRN Q15MIN PRN IV SEE COMMENTS; Start 03/24/17 at 12:30 Ceftriaxone Sodium 50 ml @ 100 mls/hr 1X ONCE IV Last administered on 13:33; Start 03/24/17 at 13:30; Stop 03/24/17 at 13:59; Status DC Ceftriaxone Sodium 1 gm/ Sodium Chloride 50 ml @ 100 mls/hr Q24H IV Last administered on 03/30/17 13:23; Start 03/25/17 at 14:00; Stop 03/31/17 at 14:28 ; Status DC Ondansetron HCl (Zofran) 4 mg PRN Q8HRS PRN IV NAUSEA/VOMITING; Start 03/24/17 at 13:30; Stop 03/25/17 at 13:29; Status DC Sodium Chloride 1,000 ml @ 125 mls/hr Q8H IV Last administered on 03/24/17 13 :37; Start 03/24/17 at 13:45; Stop 03/25/17 at 08:53; Status DC Aspirin (Aspirin) 300 mg 1X ONCE NC Last administered on 03/24/17 13:45; Start 03/24/17 at 13:45; Stop 03/24/17 at 13:46; Status DC Sodium Chloride (Normal Saline Flush) 3 ml QSHIFT PRN IV AFTER MEDS AND BLOOD DRAWS; Start 03/24/17 at 13:45 Sodium Chloride 1,000 ml @ 100 mls/hr Q10H IV Last administered on 03/25/17 01:22; Start 03/24/17 at 14:00; Stop 03/25/17 at 08:53; Status DC Aspirin (Ecotrin) 325 mg [id number] PO Last administered on 04/05/17 09:16; Start 03/25/17 at 08:00 Atorvastatin Calcium (Lipitor) 20 mg QHS PO Last administered on 04/03/17 21:25 ; Start 03/24/17 at 21:00; Stop 04/04/17 at 14:01; Status DC Labetalol HCl (Normodyne) 10 mg PRN Q10MIN PRN IV HYPERTENSION, SEE COMMENTS Last administered on 03/25/17 20:08; Start 03/24/17 at 13:45 Acetaminophen (Tylenol) 650 mg PRN Q6HRS PRN PO FEVER; Start 03/24/17 at 13:45 ; Stop 03/29/17 at 21:13; Status DC Acetaminophen (Acetaminophen Supp) 650 mg PRN Q6HRS PRN NC FEVER Last administered on 03/28/17 21:42; Start 03/24/17 at 13:45; Stop 03/31/17 at 14:28 ; Status DC Enoxaparin Sodium (Lovenox 40mg Syringe) 40 mg Q24H SQ Last administered on 15:26; Start 03/24/17 at 15:00; Stop 03/29/17 at 08:44; Status DC Iohexol (Omnipaque 350 Mg/ml) 60 ml 1X ONCE IV Last administered on 03/24/17 16:25; Start 03/24/17 at 16:15; Stop 03/24/17 at 16:20; Status DC Info (Do NOT chart on this entry -- for MONITORING) 1 each PRN DAILY PRN MC SEE COMMENTS; Start 03/24/17 at 16:30; Stop 03/26/17 at 16:29; Status DC Ondansetron HCl (Zofran) 4 mg PRN Q6HRS PRN IV NAUSEA/VOMITING; Start 03/24/17 at 16:30 Amino Acids/ Glycerin/ Electrolytes 1,000 ml @ 80 mls/hr [id number] IV Last administered on 03/31/17 03:34; Start 03/25/17 at 09:30; Stop 03/31/17 at 12:13 ; Status DC Barium Sulfate (Varibar Thin Liquid Apple) 148 gm 1X ONCE PO Last administered on 03/26/17 13:30; Start 03/26/17 at 13:30; Stop 03/26/17 at 13:31 ; Status DC Ringer's Solution 1,000 ml @ 50 mls/hr Q20H IV ; Start 03/29/17 at 07:00; Stop 03/29/17 at 07:28; Status DC Diphenhydramine HCl (Benadryl) 25 mg PRN Q6HRS PRN IVP ITCHING Last administered on 04/03/17 13:24; Start 03/26/17 at 23:00 Potassium Chloride 50 ml @ 50 mls/hr Q1H IV ; Start 03/27/17 at 13:00; Stop at 14:59; Status UNV Potassium Chloride 100 ml @ 100 mls/hr Q1H IV Last administered on 03/27/17 19:45; Start 03/27/17 at 13:00; Stop 03/27/17 at 16:59; Status DC Ringer's Solution 1,000 ml @ 50 mls/hr Q20H IV ; Start 03/29/17 at 13:00; Stop 03/29/17 at 19:13; Status DC Midazolam HCl (Versed) 2 mg PRN 1X PRN IV PRIOR TO PROCEDURE; Start 03/29/17 at 12:15; Stop 03/29/17 at 15:49; Status DC Fentanyl Citrate (Fentanyl 2ml Vial) 25 mcg PRN Q5MIN PRN IV X 2 DOSES FOR PAIN ; Start 03/29/17 at 12:15; Stop 03/29/17 at 15:49; Status DC Fentanyl Citrate (Fentanyl 2ml Vial) 50 mcg PRN Q5MIN PRN IV X 2 DOSES FOR PAIN ; Start 03/29/17 at 12:15; Stop 03/29/17 at 15:49; Status DC Ringer's Solution 1,000 ml @ 125 mls/hr Q8H IV Last administered on 03/29/17 12:38; Start 03/29/17 at 12:07; Stop 03/29/17 at 17:31; Status DC Lidocaine HCl 2 ml 1X PRN PRN ID IV START; Start 03/29/17 at 12:15; Stop at 12:14; Status DC Propofol 20 ml @ As Directed STK-MED ONCE IV ; Start 03/29/17 at 12:29; Stop at 12:30; Status DC Morphine Sulfate 1 mg PRN Q2HR PRN IV PAIN Last administered on 04/04/17 13:59 ; Start 03/29/17 at 16:15 Morphine Sulfate 2 mg PRN Q2HR PRN IV PAIN Last administered on 04/03/17 02:41 ; Start 03/29/17 at 16:15 Acetaminophen (Tylenol) 650 mg PRN Q6HRS PRN PEG MILD PAIN / TEMP Last administered on 04/03/17 21:25; Start 03/29/17 at 21:15 Senna/Docusate Sodium (Senna Plus) 1 tab BID PO Last administered on 04/04/17 08:49; Start 03/31/17 at 21:00 Docusate Sodium (Colace) 100 mg BID PO Last administered on 04/04/17 08:51; Start 03/31/17 at 21:00 Magnesium Hydroxide (Milk Of Magnesia) 2,400 mg PRN Q12HR PRN PO CONSTIPATION; Start 03/31/17 at 12:15 Potassium Chloride (KCl Oral Soln) 40 meq 1X ONCE PEG Last administered on 11:30; Start 04/01/17 at 11:15; Stop 04/01/17 at 11:16; Status DC Insulin Aspart (NovoLOG) 0-9 UNITS TIDWMEALS SQ Last administered on 04/05/17 09:38; Start 04/01/17 at 12:00 Dextrose (Dextrose 50%-Water Syringe) 12.5 gm PRN Q15MIN PRN IV SEE COMMENTS; Start 04/01/17 at 11:15; Status UNV Insulin Detemir (Levemir) 10 units QHS SQ Last administered on 04/01/17 21:49 ; Start 04/01/17 at 21:00; Stop 04/02/17 at 08:18; Status DC Insulin Detemir (Levemir) 15 units QHS SQ Last administered on 04/02/17 21:21; Start 04/02/17 at 21:00; Stop 04/03/17 at 13:21; Status DC Insulin Aspart (NovoLOG) 5 units TIDAC SQ Last administered on 04/03/17 12:49; Start 04/02/17 at 11:30; Stop 04/03/17 at 13:21; Status DC Scopolamine (Transderm-Scop) 1 patch [id number] TD Last administered on 04/05/17 09 :16; Start 04/02/17 at 10:00 Insulin Aspart (NovoLOG) 7 units TIDAC SQ Last administered on 04/05/17 09:39; Start 04/03/17 at 16:30 Insulin Detemir (Levemir) 20 units QHS SQ Last administered on 04/04/17 20:53; Start 04/03/17 at 21:00; Stop 04/05/17 at 08:47; Status DC Atorvastatin Calcium (Lipitor) 40 mg QHS PO Last administered on 04/04/17 20:43 ; Start 04/04/17 at 21:00 Insulin Detemir (Levemir) 22 units QHS SQ ; Start 04/05/17 at 21:00 Active Scripts Active Reported Atorvastatin Calcium 40 Mg Tablet 1 Tab PO DAILY Losartan Potassium 100 Mg Tablet 100 Mg PO DAILY Aspir 81 (Aspirin) 81 Mg Tablet. 1 Tab PO DAILY Vitals/I & O Vital Sign - Last 24 Hours 04/04/17 04/04/17 04/04/17 04/04/17 11:00 13:59 14:29 15:00 Temp 98.1 98.4 98.1 98.4 Pulse 61 51 Resp 14 16 16 16 B/P (MAP) 126/61 (82) 133/54 (80) Pulse Ox 93 93 93 94 O2 Delivery Room Air Room Air Room Air Room Air 04/04/17 04/04/17 04/04/17 04/05/17 19:05 20:07 23:05 03:10 Temp 99.0 98.8 97.9 99.0 98.8 97.9 Pulse 67 70 63 Resp 20 20 20 B/P (MAP) 128/70 (89) 143/75 (97) 148/66 (93) Pulse Ox 92 94 93 O2 Delivery Room Air Room Air Room Air Room Air 04/05/17 07:11 Temp 99.0 99.0 Pulse 62 Resp 19 B/P (MAP) 147/76 (99) Pulse Ox 92 O2 Delivery Room Air Problem List Problems Medical Problems: (1) CVA (cerebral vascular accident) Status: Acute Assessment S/p PEG for neurogenic dysphagia. Plan of Care: Continue current Tx, Mgmt Plan of Care Note Will sign off. Call if I can help. NADYA JOHNSTON MD Apr 05, 2017 10:22
[2017-04-05 10:44] VITALS: BP 156/72
--- NOTE | 2017-04-05 12:38 | PDOC ---
PROGRESS NOTES Chief Complaint Chief Complaint CVA with left sided weakness hld htn Type 2 DM - uncontrolled Obesity Not compliant with meds leukocytosis, reactive likely constipation hypokalemia plan: fu with gi, neuro on ASA, lipitor through PEG ON peg, DC ppn dc abx add stool softner SW fu for SNF, waiting for plan pat consulted, waiting for family meeting recheck UA, UCX since leukocytosis, repeat CXR still neg. check bcx neg, will get ID consult. talked to dr. Rollins, likely not infection. replete K SSI, add levemir 25u qhs, aspart 7u tid add scopolamine patch talked to family at bedside x10min History of Present Illness History of Present Illness ROS: no chills, sob or chest pain. T 99.5 Pt speaks chukese, granddaughter at bedside and helping translate. Pt is laying in bed, not handling secretions well. PEG dry and clean, no erythema. Family meeting scheduled for today at 11 am with Pallative care to discuss terminal clerk goals of care. Per GI, resume lovenox today, ok to feed through PEG could move left lower ext, cannot move since Wednesday WBC flucuates at 14-15, no sign of infection hyperglycemia Vitals Vitals Vital Signs Date Time Temp Pulse Resp B/P (MAP) Pulse Ox O2 Delivery O2 Flow Rate FiO2 04/05/17 10:44 98.9 67 19 156/72 (100) 92 Room Air 98.9 04/04/17 09:21 2.0 Physical Exam General: Alert, Cooperative, Other (arousable and following commands) Heart: Regular rate Lungs: Clear Abdomen: Soft, No tenderness Extremities: No clubbing, No cyanosis, No edema, Other (left arm paralyzed, left leg can move a little bit) Skin: No rashes, No breakdown Labs LABS Laboratory Tests Test 04/04/17 16:31 04/04/17 20:40 04/05/17 05:00 04/05/17 06:10 Glucose (Fingerstick) 116 mg/dL (70-99) 145 mg/dL (70-99) White Blood Count 15.2 x10^3/uL (4.0-11.0) Red Blood Count 4.79 x10^6/uL (3.50-5.40) Hemoglobin 15.0 g/dL (12.0-15.5) Hematocrit 43.5 % (36.0-47.0) Mean Corpuscular Volume 91 fL (79-100) Mean Corpuscular Hemoglobin 31 pg (25-35) Mean Corpuscular Hemoglobin Concent 35 g/dL (31-37) Red Cell Distribution Width 12.8 % (11.5-14.5) Platelet Count 286 x10^3/uL (140-400) Neutrophils (%) (Auto) 79 % (31-73) Lymphocytes (%) (Auto) 12 % (24-48) Monocytes (%) (Auto) 6 % (0-9) Eosinophils (%) (Auto) 3 % (0-3) Basophils (%) (Auto) 1 % (0-3) Neutrophils # (Auto) 12.0 x10^3uL (1.8-7.7) Lymphocytes # (Auto) 1.7 x10^3/uL (1.0-4.8) Monocytes # (Auto) 0.9 x10^3/uL (0.0-1.1) Eosinophils # (Auto) 0.5 x10^3/uL (0.0-0.7) Basophils # (Auto) 0.1 x10^3/uL (0.0-0.2) Sodium Level 136 mmol/L (136-145) Potassium Level 3.9 mmol/L (3.5-5.1) Chloride Level 98 mmol/L (98-107) Carbon Dioxide Level 30 mmol/L (21-32) Anion Gap 8 (6-14) Blood Urea Nitrogen 18 mg/dL (7-20) Creatinine 0.8 mg/dL (0.6-1.0) Estimated GFR (Cockcroft-Gault) 71.3 Glucose Level 239 mg/dL (70-99) Calcium Level 9.2 mg/dL (8.5-10.1) Test 04/05/17 07:17 04/05/17 11:34 Glucose (Fingerstick) 222 mg/dL (70-99) 219 mg/dL (70-99) Assessment and Plan Assessmemt and Plan Problems Medical Problems: (1) CVA (cerebral vascular accident) Status: Acute Problems: Comment Review of Relevant I have reviewed the following items tamie (where applicable) has been applied. Labs Laboratory Tests Test 04/03/17 16:16 04/03/17 21:04 04/04/17 04:05 04/04/17 08:51 Glucose (Fingerstick) 123 mg/dL (70-99) 107 mg/dL (70-99) 181 mg/dL (70-99) White Blood Count 14.4 x10^3/uL (4.0-11.0) Red Blood Count 4.27 x10^6/uL (3.50-5.40) Hemoglobin 12.8 g/dL (12.0-15.5) Hematocrit 39.2 % (36.0-47.0) Mean Corpuscular Volume 92 fL (79-100) Mean Corpuscular Hemoglobin 30 pg (25-35) Mean Corpuscular Hemoglobin Concent 33 g/dL (31-37) Red Cell Distribution Width 12.7 % (11.5-14.5) Platelet Count 256 x10^3/uL (140-400) Neutrophils (%) (Auto) 66 % (31-73) Lymphocytes (%) (Auto) 20 % (24-48) Monocytes (%) (Auto) 8 % (0-9) Eosinophils (%) (Auto) 6 % (0-3) Basophils (%) (Auto) 1 % (0-3) Neutrophils # (Auto) 9.5 x10^3uL (1.8-7.7) Lymphocytes # (Auto) 2.8 x10^3/uL (1.0-4.8) Monocytes # (Auto) 1.1 x10^3/uL (0.0-1.1) Eosinophils # (Auto) 0.8 x10^3/uL (0.0-0.7) Basophils # (Auto) 0.1 x10^3/uL (0.0-0.2) Sodium Level 138 mmol/L (136-145) Potassium Level 3.7 mmol/L (3.5-5.1) Chloride Level 102 mmol/L (98-107) Carbon Dioxide Level 30 mmol/L (21-32) Anion Gap 6 (6-14) Blood Urea Nitrogen 21 mg/dL (7-20) Creatinine 0.8 mg/dL (0.6-1.0) Estimated GFR (Cockcroft-Gault) 71.3 Glucose Level 149 mg/dL (70-99) Calcium Level 8.7 mg/dL (8.5-10.1) Test 04/04/17 12:01 04/04/17 16:31 04/04/17 20:40 04/05/17 05:00 Glucose (Fingerstick) 149 mg/dL (70-99) 116 mg/dL (70-99) 145 mg/dL (70-99) White Blood Count 15.2 x10^3/uL (4.0-11.0) Red Blood Count 4.79 x10^6/uL (3.50-5.40) Hemoglobin 15.0 g/dL (12.0-15.5) Hematocrit 43.5 % (36.0-47.0) Mean Corpuscular Volume 91 fL (79-100) Mean Corpuscular Hemoglobin 31 pg (25-35) Mean Corpuscular Hemoglobin Concent 35 g/dL (31-37) Red Cell Distribution Width 12.8 % (11.5-14.5) Platelet Count 286 x10^3/uL (140-400) Neutrophils (%) (Auto) 79 % (31-73) Lymphocytes (%) (Auto) 12 % (24-48) Monocytes (%) (Auto) 6 % (0-9) Eosinophils (%) (Auto) 3 % (0-3) Basophils (%) (Auto) 1 % (0-3) Neutrophils # (Auto) 12.0 x10^3uL (1.8-7.7) Lymphocytes # (Auto) 1.7 x10^3/uL (1.0-4.8) Monocytes # (Auto) 0.9 x10^3/uL (0.0-1.1) Eosinophils # (Auto) 0.5 x10^3/uL (0.0-0.7) Basophils # (Auto) 0.1 x10^3/uL (0.0-0.2) Test 04/05/17 06:10 04/05/17 07:17 04/05/17 11:34 Sodium Level 136 mmol/L (136-145) Potassium Level 3.9 mmol/L (3.5-5.1) Chloride Level 98 mmol/L (98-107) Carbon Dioxide Level 30 mmol/L (21-32) Anion Gap 8 (6-14) Blood Urea Nitrogen 18 mg/dL (7-20) Creatinine 0.8 mg/dL (0.6-1.0) Estimated GFR (Cockcroft-Gault) 71.3 Glucose Level 239 mg/dL (70-99) Calcium Level 9.2 mg/dL (8.5-10.1) Glucose (Fingerstick) 222 mg/dL (70-99) 219 mg/dL (70-99) Laboratory Tests Test 04/04/17 16:31 04/04/17 20:40 04/05/17 05:00 04/05/17 06:10 Glucose (Fingerstick) 116 mg/dL (70-99) 145 mg/dL (70-99) White Blood Count 15.2 x10^3/uL (4.0-11.0) Red Blood Count 4.79 x10^6/uL (3.50-5.40) Hemoglobin 15.0 g/dL (12.0-15.5) Hematocrit 43.5 % (36.0-47.0) Mean Corpuscular Volume 91 fL (79-100) Mean Corpuscular Hemoglobin 31 pg (25-35) Mean Corpuscular Hemoglobin Concent 35 g/dL (31-37) Red Cell Distribution Width 12.8 % (11.5-14.5) Platelet Count 286 x10^3/uL (140-400) Neutrophils (%) (Auto) 79 % (31-73) Lymphocytes (%) (Auto) 12 % (24-48) Monocytes (%) (Auto) 6 % (0-9) Eosinophils (%) (Auto) 3 % (0-3) Basophils (%) (Auto) 1 % (0-3) Neutrophils # (Auto) 12.0 x10^3uL (1.8-7.7) Lymphocytes # (Auto) 1.7 x10^3/uL (1.0-4.8) Monocytes # (Auto) 0.9 x10^3/uL (0.0-1.1) Eosinophils # (Auto) 0.5 x10^3/uL (0.0-0.7) Basophils # (Auto) 0.1 x10^3/uL (0.0-0.2) Sodium Level 136 mmol/L (136-145) Potassium Level 3.9 mmol/L (3.5-5.1) Chloride Level 98 mmol/L (98-107) Carbon Dioxide Level 30 mmol/L (21-32) Anion Gap 8 (6-14) Blood Urea Nitrogen 18 mg/dL (7-20) Creatinine 0.8 mg/dL (0.6-1.0) Estimated GFR (Cockcroft-Gault) 71.3 Glucose Level 239 mg/dL (70-99) Calcium Level 9.2 mg/dL (8.5-10.1) Test 04/05/17 07:17 04/05/17 11:34 Glucose (Fingerstick) 222 mg/dL (70-99) 219 mg/dL (70-99) Microbiology 04/03/17 Blood Culture - Preliminary, Resulted NO GROWTH AFTER 2 DAYS Medications Current Medications Insulin Aspart (NovoLOG) 0-5 UNITS TIDWMEALS SQ Last administered on 03/31/17 17:31; Start 03/24/17 at 17:00; Stop 04/01/17 at 09:20; Status DC Dextrose (Dextrose 50%-Water Syringe) 12.5 gm PRN Q15MIN PRN IV SEE COMMENTS; Start 03/24/17 at 12:30 Ceftriaxone Sodium 50 ml @ 100 mls/hr 1X ONCE IV Last administered on 13:33; Start 03/24/17 at 13:30; Stop 03/24/17 at 13:59; Status DC Ceftriaxone Sodium 1 gm/ Sodium Chloride 50 ml @ 100 mls/hr Q24H IV Last administered on 03/30/17 13:23; Start 03/25/17 at 14:00; Stop 03/31/17 at 14:28 ; Status DC Ondansetron HCl (Zofran) 4 mg PRN Q8HRS PRN IV NAUSEA/VOMITING; Start 03/24/17 at 13:30; Stop 03/25/17 at 13:29; Status DC Sodium Chloride 1,000 ml @ 125 mls/hr Q8H IV Last administered on 03/24/17 13 :37; Start 03/24/17 at 13:45; Stop 03/25/17 at 08:53; Status DC Aspirin (Aspirin) 300 mg 1X ONCE DE Last administered on 03/24/17 13:45; Start 03/24/17 at 13:45; Stop 03/24/17 at 13:46; Status DC Sodium Chloride (Normal Saline Flush) 3 ml QSHIFT PRN IV AFTER MEDS AND BLOOD DRAWS; Start 03/24/17 at 13:45 Sodium Chloride 1,000 ml @ 100 mls/hr Q10H IV Last administered on 03/25/17 01:22; Start 03/24/17 at 14:00; Stop 03/25/17 at 08:53; Status DC Aspirin (Ecotrin) 325 mg [id number] PO Last administered on 04/05/17 09:16; Start 03/25/17 at 08:00 Atorvastatin Calcium (Lipitor) 20 mg QHS PO Last administered on 04/03/17 21:25 ; Start 03/24/17 at 21:00; Stop 04/04/17 at 14:01; Status DC Labetalol HCl (Normodyne) 10 mg PRN Q10MIN PRN IV HYPERTENSION, SEE COMMENTS Last administered on 03/25/17 20:08; Start 03/24/17 at 13:45 Acetaminophen (Tylenol) 650 mg PRN Q6HRS PRN PO FEVER; Start 03/24/17 at 13:45 ; Stop 03/29/17 at 21:13; Status DC Acetaminophen (Acetaminophen Supp) 650 mg PRN Q6HRS PRN DE FEVER Last administered on 03/28/17 21:42; Start 03/24/17 at 13:45; Stop 03/31/17 at 14:28 ; Status DC Enoxaparin Sodium (Lovenox 40mg Syringe) 40 mg Q24H SQ Last administered on 15:26; Start 03/24/17 at 15:00; Stop 03/29/17 at 08:44; Status DC Iohexol (Omnipaque 350 Mg/ml) 60 ml 1X ONCE IV Last administered on 03/24/17 16:25; Start 03/24/17 at 16:15; Stop 03/24/17 at 16:20; Status DC Info (Do NOT chart on this entry -- for MONITORING) 1 each PRN DAILY PRN MC SEE COMMENTS; Start 03/24/17 at 16:30; Stop 03/26/17 at 16:29; Status DC Ondansetron HCl (Zofran) 4 mg PRN Q6HRS PRN IV NAUSEA/VOMITING; Start 03/24/17 at 16:30 Amino Acids/ Glycerin/ Electrolytes 1,000 ml @ 80 mls/hr [id number] IV Last administered on 03/31/17 03:34; Start 03/25/17 at 09:30; Stop 03/31/17 at 12:13 ; Status DC Barium Sulfate (Varibar Thin Liquid Apple) 148 gm 1X ONCE PO Last administered on 03/26/17 13:30; Start 03/26/17 at 13:30; Stop 03/26/17 at 13:31 ; Status DC Ringer's Solution 1,000 ml @ 50 mls/hr Q20H IV ; Start 03/29/17 at 07:00; Stop 03/29/17 at 07:28; Status DC Diphenhydramine HCl (Benadryl) 25 mg PRN Q6HRS PRN IVP ITCHING Last administered on 04/03/17 13:24; Start 03/26/17 at 23:00 Potassium Chloride 50 ml @ 50 mls/hr Q1H IV ; Start 03/27/17 at 13:00; Stop at 14:59; Status UNV Potassium Chloride 100 ml @ 100 mls/hr Q1H IV Last administered on 03/27/17 19:45; Start 03/27/17 at 13:00; Stop 03/27/17 at 16:59; Status DC Ringer's Solution 1,000 ml @ 50 mls/hr Q20H IV ; Start 03/29/17 at 13:00; Stop 03/29/17 at 19:13; Status DC Midazolam HCl (Versed) 2 mg PRN 1X PRN IV PRIOR TO PROCEDURE; Start 03/29/17 at 12:15; Stop 03/29/17 at 15:49; Status DC Fentanyl Citrate (Fentanyl 2ml Vial) 25 mcg PRN Q5MIN PRN IV X 2 DOSES FOR PAIN ; Start 03/29/17 at 12:15; Stop 03/29/17 at 15:49; Status DC Fentanyl Citrate (Fentanyl 2ml Vial) 50 mcg PRN Q5MIN PRN IV X 2 DOSES FOR PAIN ; Start 03/29/17 at 12:15; Stop 03/29/17 at 15:49; Status DC Ringer's Solution 1,000 ml @ 125 mls/hr Q8H IV Last administered on 03/29/17 12:38; Start 03/29/17 at 12:07; Stop 03/29/17 at 17:31; Status DC Lidocaine HCl 2 ml 1X PRN PRN ID IV START; Start 03/29/17 at 12:15; Stop at 12:14; Status DC Propofol 20 ml @ As Directed STK-MED ONCE IV ; Start 03/29/17 at 12:29; Stop at 12:30; Status DC Morphine Sulfate 1 mg PRN Q2HR PRN IV PAIN Last administered on 04/04/17 13:59 ; Start 03/29/17 at 16:15 Morphine Sulfate 2 mg PRN Q2HR PRN IV PAIN Last administered on 04/03/17 02:41 ; Start 03/29/17 at 16:15 Acetaminophen (Tylenol) 650 mg PRN Q6HRS PRN PEG MILD PAIN / TEMP Last administered on 04/03/17 21:25; Start 03/29/17 at 21:15 Senna/Docusate Sodium (Senna Plus) 1 tab BID PO Last administered on 04/04/17 08:49; Start 03/31/17 at 21:00 Docusate Sodium (Colace) 100 mg BID PO Last administered on 04/04/17 08:51; Start 03/31/17 at 21:00 Magnesium Hydroxide (Milk Of Magnesia) 2,400 mg PRN Q12HR PRN PO CONSTIPATION; Start 03/31/17 at 12:15 Potassium Chloride (KCl Oral Soln) 40 meq 1X ONCE PEG Last administered on 11:30; Start 04/01/17 at 11:15; Stop 04/01/17 at 11:16; Status DC Insulin Aspart (NovoLOG) 0-9 UNITS TIDWMEALS SQ Last administered on 04/05/17 09:38; Start 04/01/17 at 12:00 Dextrose (Dextrose 50%-Water Syringe) 12.5 gm PRN Q15MIN PRN IV SEE COMMENTS; Start 04/01/17 at 11:15; Status UNV Insulin Detemir (Levemir) 10 units QHS SQ Last administered on 04/01/17 21:49 ; Start 04/01/17 at 21:00; Stop 04/02/17 at 08:18; Status DC Insulin Detemir (Levemir) 15 units QHS SQ Last administered on 04/02/17 21:21; Start 04/02/17 at 21:00; Stop 04/03/17 at 13:21; Status DC Insulin Aspart (NovoLOG) 5 units TIDAC SQ Last administered on 04/03/17 12:49; Start 04/02/17 at 11:30; Stop 04/03/17 at 13:21; Status DC Scopolamine (Transderm-Scop) 1 patch Q3DAYS TD Last administered on 04/05/17 09 :16; Start 04/02/17 at 10:00 Insulin Aspart (NovoLOG) 7 units TIDAC SQ Last administered on 04/05/17 09:39; Start 04/03/17 at 16:30 Insulin Detemir (Levemir) 20 units QHS SQ Last administered on 04/04/17 20:53; Start 04/03/17 at 21:00; Stop 04/05/17 at 08:47; Status DC Atorvastatin Calcium (Lipitor) 40 mg QHS PO Last administered on 04/04/17 20:43 ; Start 04/04/17 at 21:00 Insulin Detemir (Levemir) 22 units QHS SQ ; Start 04/05/17 at 21:00 Active Scripts Active Reported Atorvastatin Calcium 40 Mg Tablet 1 Tab PO DAILY Losartan Potassium 100 Mg Tablet 100 Mg PO DAILY Aspir 81 (Aspirin) 81 Mg Tablet. 1 Tab PO DAILY Vitals/I & O Vital Sign - Last 24 Hours 04/04/17 04/04/17 04/04/17 04/04/17 13:59 14:29 15:00 19:05 Temp 98.4 99.0 98.4 99.0 Pulse 51 67 Resp 16 16 16 20 B/P (MAP) 133/54 (80) 128/70 (89) Pulse Ox 93 93 94 92 O2 Delivery Room Air Room Air Room Air Room Air 04/04/17 04/04/17 04/05/17 04/05/17 20:07 23:05 03:10 07:11 Temp 98.8 97.9 99.0 98.8 97.9 99.0 Pulse 70 63 62 Resp 20 20 19 B/P (MAP) 143/75 (97) 148/66 (93) 147/76 (99) Pulse Ox 94 93 92 O2 Delivery Room Air Room Air Room Air Room Air 04/05/17 10:44 Temp 98.9 98.9 Pulse 67 Resp 19 B/P (MAP) 156/72 (100) Pulse Ox 92 O2 Delivery Room Air ANA WOODSON MD Apr 05, 2017 12:38
[2017-04-05 14:41] VITALS: BP 126/64
--- NOTE | 2017-04-05 15:34 | PDOC ---
PROGRESS NOTES Assessment Assessment Subacute right BG, goldsmith radiata and right hemisphere infracts. Metabolic encephalopathy. Left side hemiplegia. 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 DM HTN HLD Obesity. UTI RECOMMENDATIONS/PLAN: Continue ASA 325 mg daily. Continue Lipitor 40 mg HS. Vascular Surgery consulted and no indication for surgical intervention. OT/PT Rehab. Discussed with her family at bedside on 04/05/17. Past Medical History Cardiovascular: HTN CENTRAL NERVOUS SYSTEM: Other (headaches) GI: Other (she has been having some abdominal pain) Endocrine: Diabetes Past Surgical History Family History Hypertension Social History , used to smoke and uses alcohol but none in the last several years. ALLERGY: Reviewed. MEDICATIONS: Refer to MAR REVIEW OF SYSTEMS: Constitutional: No malnutrition, weight loss, cachexia. Head: No traumatic brain or head injury. Skin: No edema, or rash. Ear: No infection. Eyes: No vision loss, or diplopia. Nose: No bleeding or purulent discharges. Hearing: No hearing decrease. Neck: No injury. Breast: No history of cancer, masses, or discharges. Cardiac: HTN, HLD Pulmonary: No CPOD. GI: No GI Ulcer, GI bleeding Urinary/genital: UTI. Endocrine: Diabetes Mellitus, obesity. Skeletomuscular: No muscular atrophy, deformity. Neurological: see HP. Psychiatric: Denies drug use/abuse. Otherwise, not [id number] review of systems. PHYSICAL EXAMINATION: General appearance in subacute distress. HEENT: Normocephalic and nontraumatic. Eyes, nose, ears, and throat are unremarkable. Neck is supple. No lymphadenopathy. No No Crepitus. Cardiovascular: S1, S2, regular rate and rhythm. Pulmonary: No rails heard to auscultation bilaterally. Abdomen: Bowel sounds are positive. Extremities: No rash, lesions, or edema. NEUROLOGICAL EXAMINATION: Awake. Able to follow a few commands with Samoan translation by her son at bedside. Not oriented to time, place but knows her family members. PERRL. Gaze to right side. Head turning towards right side. EOMI but slow. Gaze deviation to right side. CN: left VII palsy. Muscle tone: within normal. Muscle strength: 1 left UE, 1-2 left LE, 5- right side. DTR: 1+ Left UE and LE Plantar reflex: left side extensor response, right side neutral response. Gait: Unable to walk. Sensory exam: decreased in left UE and LE. No acute cerebellar signs elicited on right side. F-T-N test not performed due to not follow commands. Objective Objective Vital Signs Date Time Temp Pulse Resp B/P (MAP) Pulse Ox O2 Delivery O2 Flow Rate FiO2 04/05/17 14:41 98.7 62 20 126/64 (84) 94 Room Air 98.7 04/05/17 08:00 2.0 Intake and Output 04/06/17 07:00 Intake Total 480 ml Balance 480 ml Tube Feeding 480 ml Vitals Signs Vitals VS - Last 72 Hours, by Label Date Time Temp Pulse Resp B/P (MAP) Pulse Ox O2 Delivery O2 Flow Rate FiO2 04/05/17 14:41 98.7 62 20 126/64 (84) 94 Room Air 98.7 04/05/17 10:44 98.9 67 19 156/72 (100) 92 Room Air 98.9 04/05/17 08:00 Room Air 2.0 04/05/17 07:11 99.0 62 19 147/76 (99) 92 Room Air 99.0 04/05/17 03:10 97.9 63 20 148/66 (93) 93 Room Air 97.9 04/04/17 23:05 98.8 70 20 143/75 (97) 94 Room Air 98.8 04/04/17 20:07 Room Air 04/04/17 19:05 99.0 67 20 128/70 (89) 92 Room Air 99.0 04/04/17 15:00 98.4 51 16 133/54 (80) 94 Room Air 98.4 04/04/17 14:29 16 93 Room Air 04/04/17 13:59 16 93 Room Air 04/04/17 11:00 98.1 61 14 126/61 (82) 93 Room Air 98.1 04/04/17 09:21 2.0 04/04/17 08:51 16 98 Room Air 2.0 04/04/17 08:00 Room Air 04/04/17 07:30 98.4 57 18 154/71 (98) 95 Room Air 98.4 Laboratory Laboratory Laboratory Tests Test 04/04/17 16:31 04/04/17 20:40 04/05/17 05:00 04/05/17 06:10 Glucose (Fingerstick) 116 mg/dL (70-99) 145 mg/dL (70-99) White Blood Count 15.2 x10^3/uL (4.0-11.0) Red Blood Count 4.79 x10^6/uL (3.50-5.40) Hemoglobin 15.0 g/dL (12.0-15.5) Hematocrit 43.5 % (36.0-47.0) Mean Corpuscular Volume 91 fL (79-100) Mean Corpuscular Hemoglobin 31 pg (25-35) Mean Corpuscular Hemoglobin Concent 35 g/dL (31-37) Red Cell Distribution Width 12.8 % (11.5-14.5) Platelet Count 286 x10^3/uL (140-400) Neutrophils (%) (Auto) 79 % (31-73) Lymphocytes (%) (Auto) 12 % (24-48) Monocytes (%) (Auto) 6 % (0-9) Eosinophils (%) (Auto) 3 % (0-3) Basophils (%) (Auto) 1 % (0-3) Neutrophils # (Auto) 12.0 x10^3uL (1.8-7.7) Lymphocytes # (Auto) 1.7 x10^3/uL (1.0-4.8) Monocytes # (Auto) 0.9 x10^3/uL (0.0-1.1) Eosinophils # (Auto) 0.5 x10^3/uL (0.0-0.7) Basophils # (Auto) 0.1 x10^3/uL (0.0-0.2) Sodium Level 136 mmol/L (136-145) Potassium Level 3.9 mmol/L (3.5-5.1) Chloride Level 98 mmol/L (98-107) Carbon Dioxide Level 30 mmol/L (21-32) Anion Gap 8 (6-14) Blood Urea Nitrogen 18 mg/dL (7-20) Creatinine 0.8 mg/dL (0.6-1.0) Estimated GFR (Cockcroft-Gault) 71.3 Glucose Level 239 mg/dL (70-99) Calcium Level 9.2 mg/dL (8.5-10.1) Test 04/05/17 07:17 04/05/17 11:34 Glucose (Fingerstick) 222 mg/dL (70-99) 219 mg/dL (70-99) Microbiology 04/03/17 Blood Culture - Preliminary, Resulted NO GROWTH AFTER 2 DAYS Medication Medications Current Medications Atorvastatin Calcium (Lipitor) 40 mg QHS PO Last administered on 04/04/17t 20:43 ; Start 04/04/17 at 21:00 Insulin Detemir (Levemir) 22 units QHS SQ ; Start 04/05/17 at 21:00; Stop at 21:00; Status DC Insulin Detemir (Levemir) 25 units QHS SQ ; Start 04/05/17 at 21:00 Comment Review of Relevant I have reviewed the following items tamie (where applicable) has been applied. REEMA CARTER MD Apr 05, 2017 15:34
[2017-04-05] MEDS: MORPHINE SULFATE 2 MG/ML DISP.SYRIN. IV PRN (17:45)
[2017-04-05 19:05] VITALS: BP 148/59
[2017-04-05] MEDS: ATORVASTATIN CALCIUM 40 MG TABLET. PO SCH (20:38)
[2017-04-05] MEDS: ACETAMINOPHEN 650 MG/20.3 ML SOLUTION. PEG PRN (20:38)
[2017-04-05] MEDS ORDERED: INSULIN DETEMIR 300 UNITS/3 ML INSULN.PEN. SQ SCH (21:00)
[2017-04-05] MEDS: INSULIN DETEMIR 300 UNITS/3 ML INSULN.PEN. SQ SCH (21:55)
[2017-04-05 23:05] VITALS: BP 127/60
[2017-04-06 03:05] VITALS: BP 121/61
[2017-04-06 07:02] LABS: BASO # 0.2 x10^3/uL (0.0-0.2); BASO % 1 % (0-3); EOS % 4 % (0-3); HEMATOCRIT 42.1 % (36.0-47.0); HEMOGLOBIN 13.6 g/dL (12.0-15.5); LYMPH # 2.1 x10^3/uL (1.0-4.8); LYMPH % 11 % (24-48); MEAN CORPUSCULAR HEMOGLOBIN 30 pg (25-35); MEAN CORPUSCULAR HGB CONC 32 g/dL (31-37); MEAN CORPUSCULAR VOLUME 92 fL (79-100); MONO % 9 % (0-9); NEUT % 75 % (31-73); PLATELET COUNT 298 x10^3/uL (140-400); RED BLOOD COUNT 4.56 x10^6/uL (3.50-5.40); WHITE BLOOD COUNT 18.6 x10^3/uL (4.0-11.0)
[2017-04-06 07:26] LABS: CALCIUM 9.1 mg/dL (8.5-10.1); GFR 55.1; POTASSIUM 3.7 mmol/L (3.5-5.1)
[2017-04-06 07:44] VITALS: BP 166/73
[2017-04-06] MEDS: DOCUSATE SODIUM 100 MG CAPSULE. PO SCH ×2 (09:00→19:57)
[2017-04-06] MEDS: SENNOSIDES/DOCUSATE 8.6/50MG TABLET. PO SCH ×2 (09:06→19:57)
[2017-04-06] MEDS: ASPIRIN ENTERIC COATED 325 MG TABLET.DR. PO SCH (09:06)
[2017-04-06] MEDS: INSULIN ASPART 300 UNITS/3 ML INSULN.PEN SQ SCH ×6 (09:27→17:00)
--- NOTE | 2017-04-06 09:42 | PDOC ---
Infectious Disease Note Vital Sign Vital Signs Vital Signs Date Time Temp Pulse Resp B/P (MAP) Pulse Ox O2 Delivery O2 Flow Rate FiO2 04/06/17 07:44 97.4 66 20 166/73 (104) 95 Room Air 97.4 04/05/17 19:08 2.0 Labs Lab Laboratory Tests Test 04/05/17 11:34 04/05/17 16:18 04/05/17 21:30 04/06/17 06:15 Glucose (Fingerstick) 219 mg/dL (70-99) 193 mg/dL (70-99) 140 mg/dL (70-99) White Blood Count 18.6 x10^3/uL (4.0-11.0) Red Blood Count 4.56 x10^6/uL (3.50-5.40) Hemoglobin 13.6 g/dL (12.0-15.5) Hematocrit 42.1 % (36.0-47.0) Mean Corpuscular Volume 92 fL (79-100) Mean Corpuscular Hemoglobin 30 pg (25-35) Mean Corpuscular Hemoglobin Concent 32 g/dL (31-37) Red Cell Distribution Width 13.0 % (11.5-14.5) Platelet Count 298 x10^3/uL (140-400) Neutrophils (%) (Auto) 75 % (31-73) Lymphocytes (%) (Auto) 11 % (24-48) Monocytes (%) (Auto) 9 % (0-9) Eosinophils (%) (Auto) 4 % (0-3) Basophils (%) (Auto) 1 % (0-3) Neutrophils # (Auto) 14.0 x10^3uL (1.8-7.7) Lymphocytes # (Auto) 2.1 x10^3/uL (1.0-4.8) Monocytes # (Auto) 1.7 x10^3/uL (0.0-1.1) Eosinophils # (Auto) 0.7 x10^3/uL (0.0-0.7) Basophils # (Auto) 0.2 x10^3/uL (0.0-0.2) Sodium Level 139 mmol/L (136-145) Potassium Level 3.7 mmol/L (3.5-5.1) Chloride Level 101 mmol/L (98-107) Carbon Dioxide Level 29 mmol/L (21-32) Anion Gap 9 (6-14) Blood Urea Nitrogen 20 mg/dL (7-20) Creatinine 1.0 mg/dL (0.6-1.0) Estimated GFR (Cockcroft-Gault) 55.1 Glucose Level 197 mg/dL (70-99) Calcium Level 9.1 mg/dL (8.5-10.1) Test 04/06/17 07:46 Glucose (Fingerstick) 223 mg/dL (70-99) Objective Assessment Leukocytosis, rule out c diff CVA HTN Plan Plan of Care check stool for c diff may need ct abd supportive care d/w family ROSA PLAZA MD Apr 06, 2017 09:42
--- NOTE | 2017-04-06 10:24 | CONS ---
DATE OF CONSULTATION: 04/06/2017 REQUESTING PHYSICIAN: Sharda Arellano M.D. REASON FOR CONSULTATION: Leukocytosis. HISTORY OF PRESENT ILLNESS: This is a 66-year-old [place] female with history of hypertension and diabetes, who lives in [place], but visiting the family here and she was brought in because of the left-sided weakness. The patient was found to have right cerebral hemispheric stroke and basal ganglia and goldsmith radiata. The patient has been getting supportive care, dysphagia, PEG tube placement, etc. The patient is hovering. The patient's white count was hovering around 12, then it went up to 14 and now it is 18; hence consultation. The patient is not on any antibiotics. The patient did have diarrhea yesterday. No nausea or vomiting. Pain all over the body, she says through the family and no fever. PAST MEDICAL HISTORY: Positive for diabetes mellitus and hypertension. Has had . SOCIAL HISTORY: Negative for smoking, alcohol or illicit drug use. ALLERGIES: LISTED ALLERGIC TO CEFTRIAXONE. I do not know why; the patient was treated with ceftriaxone for UTI initially. REVIEW OF SYSTEMS: As per HPI. All other systems reviewed through the family and the patient's nurse because the patient is limited by patient's inability to talk. CURRENT MEDICATIONS: Reviewed. PHYSICAL EXAMINATION: GENERAL: On examination, awake female who does verbalize and communicates with the family, not in distress. VITAL SIGNS: Stable, afebrile. HEENT: NAD. NECK: Supple. No JVP, no lymphadenopathy. LUNGS: Clear. HEART: S1, S2 regular. ABDOMEN: Benign. EXTREMITIES: The patient does have flaccid paralysis on the left side, upper and lower. SKIN EXAMINATION: Unremarkable. NEUROLOGIC: The patient is neurologically alert, awake with left-sided flaccid paralysis. LABORATORY DATA: White count is 18.6. BUN and creatinine are normal. Urinalysis unremarkable. Blood cultures negative. X-ray, CT and MRI are reviewed. IMPRESSION: 1. Leukocytosis, etiology unclear. It could be C. diff as she started having diarrhea yesterday, but according to the nursing, there is nothing coming out today, at least so far. There may have been abdominal process going on; it is difficult to say right now. Last chest x-ray was unremarkable. 2. Cerebrovascular accident. 3. Diabetes. 4. Hypertension. RECOMMENDATIONS: We would get stool for C. diff. I will get CT abdomen and pelvis. Supportive care, PT, OT and will continue to follow. Discussion with family done. Thank you very much, Dr. Arellano, for giving me the opportunity to participate in this patient's care. ROSA PLAZA MD DR: [email or web address]/[email or web address] JOB#: [id number] / [id number]
[2017-04-06 10:49] VITALS: BP 127/67
[2017-04-06 10:52] LABS: % EOS 4 % (0-5); PLT ESTIMATE ADEQUATE (ADEQUATE)
[2017-04-06] MEDS ORDERED: CONTRAST GIVEN MC PRN (11:45)
[2017-04-06] MEDS ORDERED: IOHEXOL 240 MG/ML 50ML VIAL. PO ONE (11:45)
[2017-04-06] MEDS ORDERED: IOHEXOL 300 MG/ML 75 ML VIAL IV ONE (11:45)
--- NOTE | 2017-04-06 12:13 | PDOC ---
PROGRESS NOTES Chief Complaint Chief Complaint CVA with left sided weakness hld htn Type 2 DM - uncontrolled Obesity Not compliant with meds leukocytosis, reactive likely constipation hypokalemia plan: fu with gi, neuro on ASA, lipitor through PEG ON peg, DC ppn dc abx add stool softner UBALDO fu for SNF, waiting for plan pat consulted, waiting for family meeting recheck UA, UCX since leukocytosis, repeat CXR still neg. check bcx neg, will get ID consult. talked to dr. Rollins, will check cdiff today, and abd CT. replete K SSI, add levemir 25u qhs, aspart 7u tid add scopolamine patch talked to family at bedside x10min as per nurse and i talked to son , pt [place], SW said no insurance here, dc soon back home History of Present Illness History of Present Illness ROS: no chills, sob or chest pain. afebrile Pt speaks chukese, granddaughter at bedside and helping translate. Pt is laying in bed, not handling secretions well. PEG dry and clean, no erythema. Family meeting scheduled for today at 11 am with Pallative care to discuss intermediate goals of care. Per GI, resume lovenox today, ok to feed through PEG could move left lower ext, cannot move since Wednesday WBC flucuates at 14-15, no sign of infection, today up to 18, had one time diarrhea yesterday hyperglycemia Vitals Vitals Vital Signs Date Time Temp Pulse Resp B/P (MAP) Pulse Ox O2 Delivery O2 Flow Rate FiO2 04/06/17 10:49 97.7 54 20 127/67 (87) 98 Room Air 97.7 04/05/17 19:08 2.0 Physical Exam General: Alert, Cooperative, Other (arousable and following commands) Heart: Regular rate Lungs: Clear Abdomen: Soft, No tenderness Extremities: No clubbing, No cyanosis, No edema, Other (left arm paralyzed, left leg can move a little bit) Skin: No rashes, No breakdown Labs LABS Laboratory Tests Test 04/05/17 16:18 04/05/17 21:30 04/06/17 06:15 04/06/17 07:46 Glucose (Fingerstick) 193 mg/dL (70-99) 140 mg/dL (70-99) 223 mg/dL (70-99) White Blood Count 18.6 x10^3/uL (4.0-11.0) Red Blood Count 4.56 x10^6/uL (3.50-5.40) Hemoglobin 13.6 g/dL (12.0-15.5) Hematocrit 42.1 % (36.0-47.0) Mean Corpuscular Volume 92 fL (79-100) Mean Corpuscular Hemoglobin 30 pg (25-35) Mean Corpuscular Hemoglobin Concent 32 g/dL (31-37) Red Cell Distribution Width 13.0 % (11.5-14.5) Platelet Count 298 x10^3/uL (140-400) Neutrophils (%) (Auto) 75 % (31-73) Lymphocytes (%) (Auto) 11 % (24-48) Monocytes (%) (Auto) 9 % (0-9) Eosinophils (%) (Auto) 4 % (0-3) Basophils (%) (Auto) 1 % (0-3) Neutrophils # (Auto) 14.0 x10^3uL (1.8-7.7) Lymphocytes # (Auto) 2.1 x10^3/uL (1.0-4.8) Monocytes # (Auto) 1.7 x10^3/uL (0.0-1.1) Eosinophils # (Auto) 0.7 x10^3/uL (0.0-0.7) Basophils # (Auto) 0.2 x10^3/uL (0.0-0.2) Segmented Neutrophils % 67 % (35-66) Band Neutrophils % 6 % (0-9) Lymphocytes % 14 % (24-48) Atypical Lymphocytes % (Manual) 1 % (0-0) Monocytes % 8 % (0-10) Eosinophils % 4 % (0-5) Platelet Estimate Adequate (ADEQUATE) Sodium Level 139 mmol/L (136-145) Potassium Level 3.7 mmol/L (3.5-5.1) Chloride Level 101 mmol/L (98-107) Carbon Dioxide Level 29 mmol/L (21-32) Anion Gap 9 (6-14) Blood Urea Nitrogen 20 mg/dL (7-20) Creatinine 1.0 mg/dL (0.6-1.0) Estimated GFR (Cockcroft-Gault) 55.1 Glucose Level 197 mg/dL (70-99) Calcium Level 9.1 mg/dL (8.5-10.1) Test 04/06/17 11:26 Glucose (Fingerstick) 194 mg/dL (70-99) Assessment and Plan Assessmemt and Plan Problems Medical Problems: (1) CVA (cerebral vascular accident) Status: Acute Problems: Comment Review of Relevant I have reviewed the following items tamie (where applicable) has been applied. Labs Laboratory Tests Test 04/04/17 16:31 04/04/17 20:40 04/05/17 05:00 04/05/17 06:10 Glucose (Fingerstick) 116 mg/dL (70-99) 145 mg/dL (70-99) White Blood Count 15.2 x10^3/uL (4.0-11.0) Red Blood Count 4.79 x10^6/uL (3.50-5.40) Hemoglobin 15.0 g/dL (12.0-15.5) Hematocrit 43.5 % (36.0-47.0) Mean Corpuscular Volume 91 fL (79-100) Mean Corpuscular Hemoglobin 31 pg (25-35) Mean Corpuscular Hemoglobin Concent 35 g/dL (31-37) Red Cell Distribution Width 12.8 % (11.5-14.5) Platelet Count 286 x10^3/uL (140-400) Neutrophils (%) (Auto) 79 % (31-73) Lymphocytes (%) (Auto) 12 % (24-48) Monocytes (%) (Auto) 6 % (0-9) Eosinophils (%) (Auto) 3 % (0-3) Basophils (%) (Auto) 1 % (0-3) Neutrophils # (Auto) 12.0 x10^3uL (1.8-7.7) Lymphocytes # (Auto) 1.7 x10^3/uL (1.0-4.8) Monocytes # (Auto) 0.9 x10^3/uL (0.0-1.1) Eosinophils # (Auto) 0.5 x10^3/uL (0.0-0.7) Basophils # (Auto) 0.1 x10^3/uL (0.0-0.2) Sodium Level 136 mmol/L (136-145) Potassium Level 3.9 mmol/L (3.5-5.1) Chloride Level 98 mmol/L (98-107) Carbon Dioxide Level 30 mmol/L (21-32) Anion Gap 8 (6-14) Blood Urea Nitrogen 18 mg/dL (7-20) Creatinine 0.8 mg/dL (0.6-1.0) Estimated GFR (Cockcroft-Gault) 71.3 Glucose Level 239 mg/dL (70-99) Calcium Level 9.2 mg/dL (8.5-10.1) Test 04/05/17 07:17 04/05/17 11:34 04/05/17 16:18 04/05/17 21:30 Glucose (Fingerstick) 222 mg/dL (70-99) 219 mg/dL (70-99) 193 mg/dL (70-99) 140 mg/dL (70-99) Test 04/06/17 06:15 04/06/17 07:46 04/06/17 11:26 White Blood Count 18.6 x10^3/uL (4.0-11.0) Red Blood Count 4.56 x10^6/uL (3.50-5.40) Hemoglobin 13.6 g/dL (12.0-15.5) Hematocrit 42.1 % (36.0-47.0) Mean Corpuscular Volume 92 fL (79-100) Mean Corpuscular Hemoglobin 30 pg (25-35) Mean Corpuscular Hemoglobin Concent 32 g/dL (31-37) Red Cell Distribution Width 13.0 % (11.5-14.5) Platelet Count 298 x10^3/uL (140-400) Neutrophils (%) (Auto) 75 % (31-73) Lymphocytes (%) (Auto) 11 % (24-48) Monocytes (%) (Auto) 9 % (0-9) Eosinophils (%) (Auto) 4 % (0-3) Basophils (%) (Auto) 1 % (0-3) Neutrophils # (Auto) 14.0 x10^3uL (1.8-7.7) Lymphocytes # (Auto) 2.1 x10^3/uL (1.0-4.8) Monocytes # (Auto) 1.7 x10^3/uL (0.0-1.1) Eosinophils # (Auto) 0.7 x10^3/uL (0.0-0.7) Basophils # (Auto) 0.2 x10^3/uL (0.0-0.2) Segmented Neutrophils % 67 % (35-66) Band Neutrophils % 6 % (0-9) Lymphocytes % 14 % (24-48) Atypical Lymphocytes % (Manual) 1 % (0-0) Monocytes % 8 % (0-10) Eosinophils % 4 % (0-5) Platelet Estimate Adequate (ADEQUATE) Sodium Level 139 mmol/L (136-145) Potassium Level 3.7 mmol/L (3.5-5.1) Chloride Level 101 mmol/L (98-107) Carbon Dioxide Level 29 mmol/L (21-32) Anion Gap 9 (6-14) Blood Urea Nitrogen 20 mg/dL (7-20) Creatinine 1.0 mg/dL (0.6-1.0) Estimated GFR (Cockcroft-Gault) 55.1 Glucose Level 197 mg/dL (70-99) Calcium Level 9.1 mg/dL (8.5-10.1) Glucose (Fingerstick) 223 mg/dL (70-99) 194 mg/dL (70-99) Laboratory Tests Test 04/05/17 16:18 04/05/17 21:30 04/06/17 06:15 04/06/17 07:46 Glucose (Fingerstick) 193 mg/dL (70-99) 140 mg/dL (70-99) 223 mg/dL (70-99) White Blood Count 18.6 x10^3/uL (4.0-11.0) Red Blood Count 4.56 x10^6/uL (3.50-5.40) Hemoglobin 13.6 g/dL (12.0-15.5) Hematocrit 42.1 % (36.0-47.0) Mean Corpuscular Volume 92 fL (79-100) Mean Corpuscular Hemoglobin 30 pg (25-35) Mean Corpuscular Hemoglobin Concent 32 g/dL (31-37) Red Cell Distribution Width 13.0 % (11.5-14.5) Platelet Count 298 x10^3/uL (140-400) Neutrophils (%) (Auto) 75 % (31-73) Lymphocytes (%) (Auto) 11 % (24-48) Monocytes (%) (Auto) 9 % (0-9) Eosinophils (%) (Auto) 4 % (0-3) Basophils (%) (Auto) 1 % (0-3) Neutrophils # (Auto) 14.0 x10^3uL (1.8-7.7) Lymphocytes # (Auto) 2.1 x10^3/uL (1.0-4.8) Monocytes # (Auto) 1.7 x10^3/uL (0.0-1.1) Eosinophils # (Auto) 0.7 x10^3/uL (0.0-0.7) Basophils # (Auto) 0.2 x10^3/uL (0.0-0.2) Segmented Neutrophils % 67 % (35-66) Band Neutrophils % 6 % (0-9) Lymphocytes % 14 % (24-48) Atypical Lymphocytes % (Manual) 1 % (0-0) Monocytes % 8 % (0-10) Eosinophils % 4 % (0-5) Platelet Estimate Adequate (ADEQUATE) Sodium Level 139 mmol/L (136-145) Potassium Level 3.7 mmol/L (3.5-5.1) Chloride Level 101 mmol/L (98-107) Carbon Dioxide Level 29 mmol/L (21-32) Anion Gap 9 (6-14) Blood Urea Nitrogen 20 mg/dL (7-20) Creatinine 1.0 mg/dL (0.6-1.0) Estimated GFR (Cockcroft-Gault) 55.1 Glucose Level 197 mg/dL (70-99) Calcium Level 9.1 mg/dL (8.5-10.1) Test 04/06/17 11:26 Glucose (Fingerstick) 194 mg/dL (70-99) Microbiology 04/03/17 Blood Culture - Preliminary, Resulted NO GROWTH AFTER 3 DAYS Medications Current Medications Insulin Aspart (NovoLOG) 0-5 UNITS TIDWMEALS SQ Last administered on 03/31/17t 17:31; Start 03/24/17 at 17:00; Stop 04/01/17 at 09:20; Status DC Dextrose (Dextrose 50%-Water Syringe) 12.5 gm PRN Q15MIN PRN IV SEE COMMENTS; Start 03/24/17 at 12:30 Ceftriaxone Sodium 50 ml @ 100 mls/hr 1X ONCE IV Last administered on 13:33; Start 03/24/17 at 13:30; Stop 03/24/17 at 13:59; Status DC Ceftriaxone Sodium 1 gm/ Sodium Chloride 50 ml @ 100 mls/hr Q24H IV Last administered on 03/30/17 13:23; Start 03/25/17 at 14:00; Stop 03/31/17 at 14:28 ; Status DC Ondansetron HCl (Zofran) 4 mg PRN Q8HRS PRN IV NAUSEA/VOMITING; Start 03/24/17 at 13:30; Stop 03/25/17 at 13:29; Status DC Sodium Chloride 1,000 ml @ 125 mls/hr Q8H IV Last administered on 03/24/17 13 :37; Start 03/24/17 at 13:45; Stop 03/25/17 at 08:53; Status DC Aspirin (Aspirin) 300 mg 1X ONCE ND Last administered on 03/24/17 13:45; Start 03/24/17 at 13:45; Stop 03/24/17 at 13:46; Status DC Sodium Chloride (Normal Saline Flush) 3 ml QSHIFT PRN IV AFTER MEDS AND BLOOD DRAWS; Start 03/24/17 at 13:45 Sodium Chloride 1,000 ml @ 100 mls/hr Q10H IV Last administered on 03/25/17 01:22; Start 03/24/17 at 14:00; Stop 03/25/17 at 08:53; Status DC Aspirin (Ecotrin) 325 mg [id number] PO Last administered on 04/06/17 09:06; Start 03/25/17 at 08:00 Atorvastatin Calcium (Lipitor) 20 mg QHS PO Last administered on 04/03/17 21:25 ; Start 03/24/17 at 21:00; Stop 04/04/17 at 14:01; Status DC Labetalol HCl (Normodyne) 10 mg PRN Q10MIN PRN IV HYPERTENSION, SEE COMMENTS Last administered on 03/25/17 20:08; Start 03/24/17 at 13:45 Acetaminophen (Tylenol) 650 mg PRN Q6HRS PRN PO FEVER; Start 03/24/17 at 13:45 ; Stop 03/29/17 at 21:13; Status DC Acetaminophen (Acetaminophen Supp) 650 mg PRN Q6HRS PRN ND FEVER Last administered on 03/28/17 21:42; Start 03/24/17 at 13:45; Stop 03/31/17 at 14:28 ; Status DC Enoxaparin Sodium (Lovenox 40mg Syringe) 40 mg Q24H SQ Last administered on 15:26; Start 03/24/17 at 15:00; Stop 03/29/17 at 08:44; Status DC Iohexol (Omnipaque 350 Mg/ml) 60 ml 1X ONCE IV Last administered on 03/24/17 16:25; Start 03/24/17 at 16:15; Stop 03/24/17 at 16:20; Status DC Info (Do NOT chart on this entry -- for MONITORING) 1 each PRN DAILY PRN MC SEE COMMENTS; Start 03/24/17 at 16:30; Stop 03/26/17 at 16:29; Status DC Ondansetron HCl (Zofran) 4 mg PRN Q6HRS PRN IV NAUSEA/VOMITING; Start 03/24/17 at 16:30 Amino Acids/ Glycerin/ Electrolytes 1,000 ml @ 80 mls/hr [id number] IV Last administered on 03/31/17 03:34; Start 03/25/17 at 09:30; Stop 03/31/17 at 12:13 ; Status DC Barium Sulfate (Varibar Thin Liquid Apple) 148 gm 1X ONCE PO Last administered on 03/26/17 13:30; Start 03/26/17 at 13:30; Stop 03/26/17 at 13:31 ; Status DC Ringer's Solution 1,000 ml @ 50 mls/hr Q20H IV ; Start 03/29/17 at 07:00; Stop 03/29/17 at 07:28; Status DC Diphenhydramine HCl (Benadryl) 25 mg PRN Q6HRS PRN IVP ITCHING Last administered on 04/03/17 13:24; Start 03/26/17 at 23:00 Potassium Chloride 50 ml @ 50 mls/hr Q1H IV ; Start 03/27/17 at 13:00; Stop at 14:59; Status UNV Potassium Chloride 100 ml @ 100 mls/hr Q1H IV Last administered on 03/27/17 19:45; Start 03/27/17 at 13:00; Stop 03/27/17 at 16:59; Status DC Ringer's Solution 1,000 ml @ 50 mls/hr Q20H IV ; Start 03/29/17 at 13:00; Stop 03/29/17 at 19:13; Status DC Midazolam HCl (Versed) 2 mg PRN 1X PRN IV PRIOR TO PROCEDURE; Start 03/29/17 at 12:15; Stop 03/29/17 at 15:49; Status DC Fentanyl Citrate (Fentanyl 2ml Vial) 25 mcg PRN Q5MIN PRN IV X 2 DOSES FOR PAIN ; Start 03/29/17 at 12:15; Stop 03/29/17 at 15:49; Status DC Fentanyl Citrate (Fentanyl 2ml Vial) 50 mcg PRN Q5MIN PRN IV X 2 DOSES FOR PAIN ; Start 03/29/17 at 12:15; Stop 03/29/17 at 15:49; Status DC Ringer's Solution 1,000 ml @ 125 mls/hr Q8H IV Last administered on 03/29/17 12:38; Start 03/29/17 at 12:07; Stop 03/29/17 at 17:31; Status DC Lidocaine HCl 2 ml 1X PRN PRN ID IV START; Start 03/29/17 at 12:15; Stop at 12:14; Status DC Propofol 20 ml @ As Directed STK-MED ONCE IV ; Start 03/29/17 at 12:29; Stop at 12:30; Status DC Morphine Sulfate 1 mg PRN Q2HR PRN IV PAIN Last administered on 04/05/17 17:45 ; Start 03/29/17 at 16:15 Morphine Sulfate 2 mg PRN Q2HR PRN IV PAIN Last administered on 04/03/17 02:41 ; Start 03/29/17 at 16:15 Acetaminophen (Tylenol) 650 mg PRN Q6HRS PRN PEG MILD PAIN / TEMP Last administered on 04/05/17 20:38; Start 03/29/17 at 21:15 Senna/Docusate Sodium (Senna Plus) 1 tab BID PO Last administered on 04/06/17 09:06; Start 03/31/17 at 21:00 Docusate Sodium (Colace) 100 mg BID PO Last administered on 04/05/17 20:38; Start 03/31/17 at 21:00 Magnesium Hydroxide (Milk Of Magnesia) 2,400 mg PRN Q12HR PRN PO CONSTIPATION; Start 03/31/17 at 12:15 Potassium Chloride (KCl Oral Soln) 40 meq 1X ONCE PEG Last administered on 11:30; Start 04/01/17 at 11:15; Stop 04/01/17 at 11:16; Status DC Insulin Aspart (NovoLOG) 0-9 UNITS TIDWMEALS SQ Last administered on 04/06/17 09:27; Start 04/01/17 at 12:00 Dextrose (Dextrose 50%-Water Syringe) 12.5 gm PRN Q15MIN PRN IV SEE COMMENTS; Start 04/01/17 at 11:15; Status UNV Insulin Detemir (Levemir) 10 units QHS SQ Last administered on 04/01/17 21:49 ; Start 04/01/17 at 21:00; Stop 04/02/17 at 08:18; Status DC Insulin Detemir (Levemir) 15 units QHS SQ Last administered on 04/02/17 21:21; Start 04/02/17 at 21:00; Stop 04/03/17 at 13:21; Status DC Insulin Aspart (NovoLOG) 5 units TIDAC SQ Last administered on 04/03/17 12:49; Start 04/02/17 at 11:30; Stop 04/03/17 at 13:21; Status DC Scopolamine (Transderm-Scop) 1 patch Q3DAYS TD Last administered on 04/05/17 09 :16; Start 04/02/17 at 10:00 Insulin Aspart (NovoLOG) 7 units TIDAC SQ Last administered on 04/06/17 09:29; Start 04/03/17 at 16:30 Insulin Detemir (Levemir) 20 units QHS SQ Last administered on 04/04/17 20:53; Start 04/03/17 at 21:00; Stop 04/05/17 at 08:47; Status DC Atorvastatin Calcium (Lipitor) 40 mg QHS PO Last administered on 04/05/17 20:38 ; Start 04/04/17 at 21:00 Insulin Detemir (Levemir) 22 units QHS SQ ; Start 04/05/17 at 21:00; Stop at 21:00; Status DC Insulin Detemir (Levemir) 25 units QHS SQ Last administered on 04/05/17t 21:55; Start 04/05/17 at 21:00 Iohexol (Omnipaque 240 Mg/ml) 50 ml 1X ONCE PO ; Start 04/06/17 at 11:45; Stop 04/06/17 at 11:46; Status DC Iohexol (Omnipaque 300 Mg/ml) 60 ml 1X ONCE IV ; Start 04/06/17 at 11:45; Stop 04/06/17 at 11:46; Status DC Info (Do NOT chart on this entry -- for MONITORING) 1 each PRN DAILY PRN MC SEE COMMENTS; Start 04/06/17 at 11:45; Stop 04/08/17 at 11:44 Active Scripts Active Reported Atorvastatin Calcium 40 Mg Tablet 1 Tab PO DAILY Losartan Potassium 100 Mg Tablet 100 Mg PO DAILY Aspir 81 (Aspirin) 81 Mg Tablet.dr 1 Tab PO DAILY Vitals/I & O Vital Sign - Last 24 Hours 04/05/17 04/05/17 04/05/17 04/05/17 14:41 17:45 19:05 19:08 Temp 98.7 99.2 98.7 99.2 Pulse 62 63 Resp 20 20 B/P (MAP) 126/64 (84) 148/59 (88) Pulse Ox 94 94 96 94 O2 Delivery Room Air Room Air Room Air Room Air O2 Flow Rate 2.0 2.0 04/05/17 04/06/17 04/06/17 04/06/17 23:05 03:05 07:44 08:00 Temp 98.7 98.0 97.4 98.7 98.0 97.4 Pulse 61 53 66 Resp 20 20 20 B/P (MAP) 127/60 (82) 121/61 (81) 166/73 (104) Pulse Ox 93 94 95 O2 Delivery Room Air Room Air Room Air Room Air 04/06/17 10:49 Temp 97.7 97.7 Pulse 54 Resp 20 B/P (MAP) 127/67 (87) Pulse Ox 98 O2 Delivery Room Air Intake and Output 04/06/17 04/06/17 04/07/17 15:00 23:00 07:00 Intake Total 160 ml Balance 160 ml ANA WOODSON MD Apr 06, 2017 12:13
--- NOTE | 2017-04-06 13:40 | PDOC ---
PROGRESS NOTES Assessment Problems Medical Problems: (1) CVA (cerebral vascular accident) Status: Acute Right BG, goldsmith radiata and right hemisphere infarcts. 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 DM HTN HLD Obesity. UTI Plan Continue ASA 325 mg daily. Continue Lipitor 40 mg HS. Vascular Surgery consulted and no indication for surgical intervention. OT/PT Rehab. Discussed with her family Subjective No pain at present Objective Vital Signs Date Time Temp Pulse Resp B/P (MAP) Pulse Ox O2 Delivery O2 Flow Rate FiO2 04/06/17 10:49 97.7 54 20 127/67 (87) 98 Room Air 97.7 04/05/17 19:08 2.0 Intake and Output 04/07/17 07:00 Intake Total 160 ml Balance 160 ml Intake Oral 0 ml Tube Feeding 160 ml # Bowel Movements 1 PHYSICAL EXAM Alert. Speaks [place] PERRL. EOMI. CN: Right gaze preference, left field cut, left central facial weakness Muscle tone: Increased on left Muscle strength: 1/5 left hemiplegia DTR: 2+ Plantar reflex: Extensor on left Gait: not examined in bed. Sensory exam: no abnormal findings. No cerebellar signs elicited. Review of Relevant I have reviewed the following items tamie (where applicable) has been applied. Labs Laboratory Tests Test 04/04/17 16:31 04/04/17 20:40 04/05/17 05:00 04/05/17 06:10 Glucose (Fingerstick) 116 mg/dL (70-99) 145 mg/dL (70-99) White Blood Count 15.2 x10^3/uL (4.0-11.0) Red Blood Count 4.79 x10^6/uL (3.50-5.40) Hemoglobin 15.0 g/dL (12.0-15.5) Hematocrit 43.5 % (36.0-47.0) Mean Corpuscular Volume 91 fL (79-100) Mean Corpuscular Hemoglobin 31 pg (25-35) Mean Corpuscular Hemoglobin Concent 35 g/dL (31-37) Red Cell Distribution Width 12.8 % (11.5-14.5) Platelet Count 286 x10^3/uL (140-400) Neutrophils (%) (Auto) 79 % (31-73) Lymphocytes (%) (Auto) 12 % (24-48) Monocytes (%) (Auto) 6 % (0-9) Eosinophils (%) (Auto) 3 % (0-3) Basophils (%) (Auto) 1 % (0-3) Neutrophils # (Auto) 12.0 x10^3uL (1.8-7.7) Lymphocytes # (Auto) 1.7 x10^3/uL (1.0-4.8) Monocytes # (Auto) 0.9 x10^3/uL (0.0-1.1) Eosinophils # (Auto) 0.5 x10^3/uL (0.0-0.7) Basophils # (Auto) 0.1 x10^3/uL (0.0-0.2) Sodium Level 136 mmol/L (136-145) Potassium Level 3.9 mmol/L (3.5-5.1) Chloride Level 98 mmol/L (98-107) Carbon Dioxide Level 30 mmol/L (21-32) Anion Gap 8 (6-14) Blood Urea Nitrogen 18 mg/dL (7-20) Creatinine 0.8 mg/dL (0.6-1.0) Estimated GFR (Cockcroft-Gault) 71.3 Glucose Level 239 mg/dL (70-99) Calcium Level 9.2 mg/dL (8.5-10.1) Test 04/05/17 07:17 04/05/17 11:34 04/05/17 16:18 04/05/17 21:30 Glucose (Fingerstick) 222 mg/dL (70-99) 219 mg/dL (70-99) 193 mg/dL (70-99) 140 mg/dL (70-99) Test 04/06/17 06:15 04/06/17 07:46 04/06/17 11:26 White Blood Count 18.6 x10^3/uL (4.0-11.0) Red Blood Count 4.56 x10^6/uL (3.50-5.40) Hemoglobin 13.6 g/dL (12.0-15.5) Hematocrit 42.1 % (36.0-47.0) Mean Corpuscular Volume 92 fL (79-100) Mean Corpuscular Hemoglobin 30 pg (25-35) Mean Corpuscular Hemoglobin Concent 32 g/dL (31-37) Red Cell Distribution Width 13.0 % (11.5-14.5) Platelet Count 298 x10^3/uL (140-400) Neutrophils (%) (Auto) 75 % (31-73) Lymphocytes (%) (Auto) 11 % (24-48) Monocytes (%) (Auto) 9 % (0-9) Eosinophils (%) (Auto) 4 % (0-3) Basophils (%) (Auto) 1 % (0-3) Neutrophils # (Auto) 14.0 x10^3uL (1.8-7.7) Lymphocytes # (Auto) 2.1 x10^3/uL (1.0-4.8) Monocytes # (Auto) 1.7 x10^3/uL (0.0-1.1) Eosinophils # (Auto) 0.7 x10^3/uL (0.0-0.7) Basophils # (Auto) 0.2 x10^3/uL (0.0-0.2) Segmented Neutrophils % 67 % (35-66) Band Neutrophils % 6 % (0-9) Lymphocytes % 14 % (24-48) Atypical Lymphocytes % (Manual) 1 % (0-0) Monocytes % 8 % (0-10) Eosinophils % 4 % (0-5) Platelet Estimate Adequate (ADEQUATE) Sodium Level 139 mmol/L (136-145) Potassium Level 3.7 mmol/L (3.5-5.1) Chloride Level 101 mmol/L (98-107) Carbon Dioxide Level 29 mmol/L (21-32) Anion Gap 9 (6-14) Blood Urea Nitrogen 20 mg/dL (7-20) Creatinine 1.0 mg/dL (0.6-1.0) Estimated GFR (Cockcroft-Gault) 55.1 Glucose Level 197 mg/dL (70-99) Calcium Level 9.1 mg/dL (8.5-10.1) Glucose (Fingerstick) 223 mg/dL (70-99) 194 mg/dL (70-99) Laboratory Tests Test 04/05/17 16:18 04/05/17 21:30 04/06/17 06:15 04/06/17 07:46 Glucose (Fingerstick) 193 mg/dL (70-99) 140 mg/dL (70-99) 223 mg/dL (70-99) White Blood Count 18.6 x10^3/uL (4.0-11.0) Red Blood Count 4.56 x10^6/uL (3.50-5.40) Hemoglobin 13.6 g/dL (12.0-15.5) Hematocrit 42.1 % (36.0-47.0) Mean Corpuscular Volume 92 fL (79-100) Mean Corpuscular Hemoglobin 30 pg (25-35) Mean Corpuscular Hemoglobin Concent 32 g/dL (31-37) Red Cell Distribution Width 13.0 % (11.5-14.5) Platelet Count 298 x10^3/uL (140-400) Neutrophils (%) (Auto) 75 % (31-73) Lymphocytes (%) (Auto) 11 % (24-48) Monocytes (%) (Auto) 9 % (0-9) Eosinophils (%) (Auto) 4 % (0-3) Basophils (%) (Auto) 1 % (0-3) Neutrophils # (Auto) 14.0 x10^3uL (1.8-7.7) Lymphocytes # (Auto) 2.1 x10^3/uL (1.0-4.8) Monocytes # (Auto) 1.7 x10^3/uL (0.0-1.1) Eosinophils # (Auto) 0.7 x10^3/uL (0.0-0.7) Basophils # (Auto) 0.2 x10^3/uL (0.0-0.2) Segmented Neutrophils % 67 % (35-66) Band Neutrophils % 6 % (0-9) Lymphocytes % 14 % (24-48) Atypical Lymphocytes % (Manual) 1 % (0-0) Monocytes % 8 % (0-10) Eosinophils % 4 % (0-5) Platelet Estimate Adequate (ADEQUATE) Sodium Level 139 mmol/L (136-145) Potassium Level 3.7 mmol/L (3.5-5.1) Chloride Level 101 mmol/L (98-107) Carbon Dioxide Level 29 mmol/L (21-32) Anion Gap 9 (6-14) Blood Urea Nitrogen 20 mg/dL (7-20) Creatinine 1.0 mg/dL (0.6-1.0) Estimated GFR (Cockcroft-Gault) 55.1 Glucose Level 197 mg/dL (70-99) Calcium Level 9.1 mg/dL (8.5-10.1) Test 04/06/17 11:26 Glucose (Fingerstick) 194 mg/dL (70-99) Microbiology 04/03/17 Blood Culture - Preliminary, Resulted NO GROWTH AFTER 3 DAYS Medications Current Medications Insulin Aspart (NovoLOG) 0-5 UNITS TIDWMEALS SQ Last administered on 03/31/17 17:31; Start 03/24/17 at 17:00; Stop 04/01/17 at 09:20; Status DC Dextrose (Dextrose 50%-Water Syringe) 12.5 gm PRN Q15MIN PRN IV SEE COMMENTS; Start 03/24/17 at 12:30 Ceftriaxone Sodium 50 ml @ 100 mls/hr 1X ONCE IV Last administered on 13:33; Start 03/24/17 at 13:30; Stop 03/24/17 at 13:59; Status DC Ceftriaxone Sodium 1 gm/ Sodium Chloride 50 ml @ 100 mls/hr Q24H IV Last administered on 03/30/17 13:23; Start 03/25/17 at 14:00; Stop 03/31/17 at 14:28 ; Status DC Ondansetron HCl (Zofran) 4 mg PRN Q8HRS PRN IV NAUSEA/VOMITING; Start 03/24/17 at 13:30; Stop 03/25/17 at 13:29; Status DC Sodium Chloride 1,000 ml @ 125 mls/hr Q8H IV Last administered on 03/24/17 13 :37; Start 03/24/17 at 13:45; Stop 03/25/17 at 08:53; Status DC Aspirin (Aspirin) 300 mg 1X ONCE AR Last administered on 03/24/17 13:45; Start 03/24/17 at 13:45; Stop 03/24/17 at 13:46; Status DC Sodium Chloride (Normal Saline Flush) 3 ml QSHIFT PRN IV AFTER MEDS AND BLOOD DRAWS; Start 03/24/17 at 13:45 Sodium Chloride 1,000 ml @ 100 mls/hr Q10H IV Last administered on 03/25/17 01:22; Start 03/24/17 at 14:00; Stop 03/25/17 at 08:53; Status DC Aspirin (Ecotrin) 325 mg [id number] PO Last administered on 04/06/17 09:06; Start 03/25/17 at 08:00 Atorvastatin Calcium (Lipitor) 20 mg QHS PO Last administered on 04/03/17 21:25 ; Start 03/24/17 at 21:00; Stop 04/04/17 at 14:01; Status DC Labetalol HCl (Normodyne) 10 mg PRN Q10MIN PRN IV HYPERTENSION, SEE COMMENTS Last administered on 03/25/17 20:08; Start 03/24/17 at 13:45 Acetaminophen (Tylenol) 650 mg PRN Q6HRS PRN PO FEVER; Start 03/24/17 at 13:45 ; Stop 03/29/17 at 21:13; Status DC Acetaminophen (Acetaminophen Supp) 650 mg PRN Q6HRS PRN AR FEVER Last administered on 03/28/17 21:42; Start 03/24/17 at 13:45; Stop 03/31/17 at 14:28 ; Status DC Enoxaparin Sodium (Lovenox 40mg Syringe) 40 mg Q24H SQ Last administered on 15:26; Start 03/24/17 at 15:00; Stop 03/29/17 at 08:44; Status DC Iohexol (Omnipaque 350 Mg/ml) 60 ml 1X ONCE IV Last administered on 03/24/17 16:25; Start 03/24/17 at 16:15; Stop 03/24/17 at 16:20; Status DC Info (Do NOT chart on this entry -- for MONITORING) 1 each PRN DAILY PRN MC SEE COMMENTS; Start 03/24/17 at 16:30; Stop 03/26/17 at 16:29; Status DC Ondansetron HCl (Zofran) 4 mg PRN Q6HRS PRN IV NAUSEA/VOMITING; Start 03/24/17 at 16:30 Amino Acids/ Glycerin/ Electrolytes 1,000 ml @ 80 mls/hr [id number] IV Last administered on 03/31/17 03:34; Start 03/25/17 at 09:30; Stop 03/31/17 at 12:13 ; Status DC Barium Sulfate (Varibar Thin Liquid Apple) 148 gm 1X ONCE PO Last administered on 03/26/17 13:30; Start 03/26/17 at 13:30; Stop 03/26/17 at 13:31 ; Status DC Ringer's Solution 1,000 ml @ 50 mls/hr Q20H IV ; Start 03/29/17 at 07:00; Stop 03/29/17 at 07:28; Status DC Diphenhydramine HCl (Benadryl) 25 mg PRN Q6HRS PRN IVP ITCHING Last administered on 04/03/17 13:24; Start 03/26/17 at 23:00 Potassium Chloride 50 ml @ 50 mls/hr Q1H IV ; Start 03/27/17 at 13:00; Stop at 14:59; Status UNV Potassium Chloride 100 ml @ 100 mls/hr Q1H IV Last administered on 03/27/17 19:45; Start 03/27/17 at 13:00; Stop 03/27/17 at 16:59; Status DC Ringer's Solution 1,000 ml @ 50 mls/hr Q20H IV ; Start 03/29/17 at 13:00; Stop 03/29/17 at 19:13; Status DC Midazolam HCl (Versed) 2 mg PRN 1X PRN IV PRIOR TO PROCEDURE; Start 03/29/17 at 12:15; Stop 03/29/17 at 15:49; Status DC Fentanyl Citrate (Fentanyl 2ml Vial) 25 mcg PRN Q5MIN PRN IV X 2 DOSES FOR PAIN ; Start 03/29/17 at 12:15; Stop 03/29/17 at 15:49; Status DC Fentanyl Citrate (Fentanyl 2ml Vial) 50 mcg PRN Q5MIN PRN IV X 2 DOSES FOR PAIN ; Start 03/29/17 at 12:15; Stop 03/29/17 at 15:49; Status DC Ringer's Solution 1,000 ml @ 125 mls/hr Q8H IV Last administered on 03/29/17 12:38; Start 03/29/17 at 12:07; Stop 03/29/17 at 17:31; Status DC Lidocaine HCl 2 ml 1X PRN PRN ID IV START; Start 03/29/17 at 12:15; Stop at 12:14; Status DC Propofol 20 ml @ As Directed STK-MED ONCE IV ; Start 03/29/17 at 12:29; Stop at 12:30; Status DC Morphine Sulfate 1 mg PRN Q2HR PRN IV PAIN Last administered on 04/05/17 17:45 ; Start 03/29/17 at 16:15 Morphine Sulfate 2 mg PRN Q2HR PRN IV PAIN Last administered on 04/03/17 02:41 ; Start 03/29/17 at 16:15; Stop 04/06/17 at 12:12; Status DC Acetaminophen (Tylenol) 650 mg PRN Q6HRS PRN PEG MILD PAIN / TEMP Last administered on 04/05/17 20:38; Start 03/29/17 at 21:15 Senna/Docusate Sodium (Senna Plus) 1 tab BID PO Last administered on 04/06/17 09:06; Start 03/31/17 at 21:00 Docusate Sodium (Colace) 100 mg BID PO Last administered on 04/05/17 20:38; Start 03/31/17 at 21:00 Magnesium Hydroxide (Milk Of Magnesia) 2,400 mg PRN Q12HR PRN PO CONSTIPATION; Start 03/31/17 at 12:15 Potassium Chloride (KCl Oral Soln) 40 meq 1X ONCE PEG Last administered on 11:30; Start 04/01/17 at 11:15; Stop 04/01/17 at 11:16; Status DC Insulin Aspart (NovoLOG) 0-9 UNITS TIDWMEALS SQ Last administered on 04/06/17 12:00; Start 04/01/17 at 12:00 Dextrose (Dextrose 50%-Water Syringe) 12.5 gm PRN Q15MIN PRN IV SEE COMMENTS; Start 04/01/17 at 11:15; Status UNV Insulin Detemir (Levemir) 10 units QHS SQ Last administered on 04/01/17 21:49 ; Start 04/01/17 at 21:00; Stop 04/02/17 at 08:18; Status DC Insulin Detemir (Levemir) 15 units QHS SQ Last administered on 04/02/17 21:21; Start 04/02/17 at 21:00; Stop 04/03/17 at 13:21; Status DC Insulin Aspart (NovoLOG) 5 units TIDAC SQ Last administered on 04/03/17 12:49; Start 04/02/17 at 11:30; Stop 04/03/17 at 13:21; Status DC Scopolamine (Transderm-Scop) 1 patch Q3DAYS TD Last administered on 04/05/17 09 :16; Start 04/02/17 at 10:00 Insulin Aspart (NovoLOG) 7 units TIDAC SQ Last administered on 04/06/17 11:30; Start 04/03/17 at 16:30 Insulin Detemir (Levemir) 20 units QHS SQ Last administered on 04/04/17 20:53; Start 04/03/17 at 21:00; Stop 04/05/17 at 08:47; Status DC Atorvastatin Calcium (Lipitor) 40 mg QHS PO Last administered on 04/05/17 20:38 ; Start 04/04/17 at 21:00 Insulin Detemir (Levemir) 22 units QHS SQ ; Start 04/05/17 at 21:00; Stop at 21:00; Status DC Insulin Detemir (Levemir) 25 units QHS SQ Last administered on 04/05/17 21:55; Start 04/05/17 at 21:00 Iohexol (Omnipaque 240 Mg/ml) 50 ml 1X ONCE PO Last administered on 04/06/17 11:45; Start 04/06/17 at 11:45; Stop 04/06/17 at 11:46; Status DC Iohexol (Omnipaque 300 Mg/ml) 60 ml 1X ONCE IV Last administered on 04/06/17 13:29; Start 04/06/17 at 11:45; Stop 04/06/17 at 11:46; Status DC Info (Do NOT chart on this entry -- for MONITORING) 1 each PRN DAILY PRN MC SEE COMMENTS; Start 04/06/17 at 11:45; Stop 04/08/17 at 11:44 Active Scripts Active Reported Atorvastatin Calcium 40 Mg Tablet 1 Tab PO DAILY Losartan Potassium 100 Mg Tablet 100 Mg PO DAILY Aspir 81 (Aspirin) 81 Mg Tablet. 1 Tab PO DAILY Vitals/I & O Vital Sign - Last 24 Hours 04/05/17 04/05/17 04/05/17 04/05/17 14:41 17:45 19:05 19:08 Temp 98.7 99.2 98.7 99.2 Pulse 62 63 Resp 20 20 B/P (MAP) 126/64 (84) 148/59 (88) Pulse Ox 94 94 96 94 O2 Delivery Room Air Room Air Room Air Room Air O2 Flow Rate 2.0 2.0 04/05/17 04/06/17 04/06/17 04/06/17 23:05 03:05 07:44 08:00 Temp 98.7 98.0 97.4 98.7 98.0 97.4 Pulse 61 53 66 Resp 20 20 20 B/P (MAP) 127/60 (82) 121/61 (81) 166/73 (104) Pulse Ox 93 94 95 O2 Delivery Room Air Room Air Room Air Room Air 04/06/17 10:49 Temp 97.7 97.7 Pulse 54 Resp 20 B/P (MAP) 127/67 (87) Pulse Ox 98 O2 Delivery Room Air Intake and Output 04/06/17 04/06/17 04/07/17 15:00 23:00 07:00 Intake Total 160 ml Balance 160 ml ETIENNE TRAORE MD Apr 06, 2017 13:40
--- NOTE | 2017-04-06 15:02 | RAD ---
Indication leukocytosis. Suspect occult infection. Axial images of the abdomen and pelvis were obtained. Both oral and IV contrast were administered. Approximately 75 cc of Omnipaque 300 was administered intravenously. No prior CT imaging of the abdomen or pelvis is available. The lung bases are clear. Gastrostomy tube is noted. There is a subcentimeter mass in the liver likely reflecting an incidental cyst. A definite significant finding in the liver is not seen. The spleen appears unremarkable. The gallbladder appears grossly normal. No pancreatic abnormality is seen. The adrenal glands and kidneys appear normal. No mass inflammatory process or acute finding within the abdomen is seen. No acute finding is seen in the pelvis. The urinary bladder is mildly distended. IMPRESSION: No acute finding seen in the abdomen or pelvis. PQRS Compliance Statement: One or more of the following individualized dose reduction techniques were utilized for this examination: 1. Automated exposure control 2. Adjustment of the mA and/or kV according to patient size 3. Use of iterative reconstruction technique
[2017-04-06] MEDS ORDERED: IOHEXOL 300 MG/ML 75 ML VIAL ONE (15:05)
[2017-04-06] MEDS ORDERED: IOHEXOL 240 MG/ML 50ML VIAL. ONE (15:06)
[2017-04-06 15:07] VITALS: BP 153/51
[2017-04-06 19:50] VITALS: BP 114/57
[2017-04-06] MEDS: ATORVASTATIN CALCIUM 40 MG TABLET. PO SCH (19:58)
[2017-04-06] MEDS: INSULIN DETEMIR 300 UNITS/3 ML INSULN.PEN. SQ SCH (21:58)
[2017-04-06] MEDS: MORPHINE SULFATE 2 MG/ML DISP.SYRIN. IV PRN (23:39)
[2017-04-06 23:55] VITALS: BP 139/99
[2017-04-07 03:45] VITALS: BP 142/63
[2017-04-07] MEDS: metroNIDAZOLE 500 MG TABLET NG SCH ×3 (06:19→21:23)
[2017-04-07 06:21] LABS: CALCIUM 8.7 mg/dL (8.5-10.1); CREATININE 0.9 mg/dL (0.6-1.0); GFR 62.3; POTASSIUM 4.3 mmol/L (3.5-5.1)
[2017-04-07 06:30] LABS: BASO # 0.1 x10^3/uL (0.0-0.2); BASO % 1 % (0-3); EOS % 4 % (0-3); HEMATOCRIT 42.1 % (36.0-47.0); HEMOGLOBIN 14.1 g/dL (12.0-15.5); LYMPH # 1.8 x10^3/uL (1.0-4.8); LYMPH % 12 % (24-48); MEAN CORPUSCULAR HEMOGLOBIN 30 pg (25-35); MEAN CORPUSCULAR HGB CONC 34 g/dL (31-37); MEAN CORPUSCULAR VOLUME 91 fL (79-100); MONO % 7 % (0-9); NEUT % 76 % (31-73); PLATELET COUNT 328 x10^3/uL (140-400); RED BLOOD COUNT 4.65 x10^6/uL (3.50-5.40); RED CELL DISTRIBUTION WIDTH 12.7 % (11.5-14.5); WHITE BLOOD COUNT 14.7 x10^3/uL (4.0-11.0)
[2017-04-07 07:00] VITALS: BP 152/62
[2017-04-07] MEDS: ASPIRIN ENTERIC COATED 325 MG TABLET.DR. PO SCH (08:42)
[2017-04-07] MEDS: DOCUSATE SODIUM 100 MG CAPSULE. PO SCH ×2 (09:00→19:28)
[2017-04-07] MEDS: SENNOSIDES/DOCUSATE 8.6/50MG TABLET. PO SCH ×2 (09:00→19:28)
[2017-04-07] MEDS: INSULIN ASPART 300 UNITS/3 ML INSULN.PEN SQ SCH ×6 (09:01→17:00)
--- NOTE | 2017-04-07 10:14 | PDOC ---
Infectious Disease Note Subjective Subjective awake, says doing good per family ROS ROS no n/v/ diarrhea better Vital Sign Vital Signs Vital Signs Date Time Temp Pulse Resp B/P (MAP) Pulse Ox O2 Delivery O2 Flow Rate FiO2 04/07/17 07:00 98.0 63 18 152/62 (92) 95 Room Air 98.0 Physical Exam PHYSICAL EXAM GENERAL: NAD, Alert HEENT: PERRL, OC/OP NECK: Supple, no JVD, no LN LUNGS: Clear HEART: S1S2, no gallop, no murmur ABD: Soft, NT, no organomegaly, no rebound EXT: No edema, no cyanosis CASE MANAGER SPECIALIST: Alert, oriented, left hemiplegia SKIN: No rash IV: ok Labs Lab Laboratory Tests Test 04/06/17 11:26 04/06/17 13:12 04/06/17 17:21 04/06/17 21:29 Glucose (Fingerstick) 194 mg/dL (70-99) 134 mg/dL (70-99) 170 mg/dL (70-99) Clostridium difficile Toxin (PCR) Positive (Negative) Test 04/07/17 05:36 04/07/17 07:10 White Blood Count 14.7 x10^3/uL (4.0-11.0) Red Blood Count 4.65 x10^6/uL (3.50-5.40) Hemoglobin 14.1 g/dL (12.0-15.5) Hematocrit 42.1 % (36.0-47.0) Mean Corpuscular Volume 91 fL (79-100) Mean Corpuscular Hemoglobin 30 pg (25-35) Mean Corpuscular Hemoglobin Concent 34 g/dL (31-37) Red Cell Distribution Width 12.7 % (11.5-14.5) Platelet Count 328 x10^3/uL (140-400) Neutrophils (%) (Auto) 76 % (31-73) Lymphocytes (%) (Auto) 12 % (24-48) Monocytes (%) (Auto) 7 % (0-9) Eosinophils (%) (Auto) 4 % (0-3) Basophils (%) (Auto) 1 % (0-3) Neutrophils # (Auto) 11.1 x10^3uL (1.8-7.7) Lymphocytes # (Auto) 1.8 x10^3/uL (1.0-4.8) Monocytes # (Auto) 1.1 x10^3/uL (0.0-1.1) Eosinophils # (Auto) 0.6 x10^3/uL (0.0-0.7) Basophils # (Auto) 0.1 x10^3/uL (0.0-0.2) Sodium Level 139 mmol/L (136-145) Potassium Level 4.3 mmol/L (3.5-5.1) Chloride Level 101 mmol/L (98-107) Carbon Dioxide Level 27 mmol/L (21-32) Anion Gap 11 (6-14) Blood Urea Nitrogen 21 mg/dL (7-20) Creatinine 0.9 mg/dL (0.6-1.0) Estimated GFR (Cockcroft-Gault) 62.3 Glucose Level 189 mg/dL (70-99) Calcium Level 8.7 mg/dL (8.5-10.1) Glucose (Fingerstick) 238 mg/dL (70-99) Objective Assessment Leukocytosis, CVA HTN C diff Plan Plan of Care d/c ok on po flagyl for 7 days d/w ROSA Biggs MD Apr 07, 2017 10:14
[2017-04-07 11:00] VITALS: BP 126/69
[2017-04-07] MEDS ORDERED: ATOR40TA59 PO (11:16)
[2017-04-07] MEDS ORDERED: INSU100I27 SQ (11:16)
[2017-04-07] MEDS ORDERED: METR500T NG (11:16)
[2017-04-07] MEDS ORDERED: SCOP1PAT TD (11:16)
[2017-04-07] MEDS ORDERED: INSU100I17 SQ (11:16)
[2017-04-07] MEDS ORDERED: ASPI325T11 PO (11:16)
--- NOTE | 2017-04-07 12:51 | PDOC ---
PROGRESS NOTES Chief Complaint Chief Complaint CVA with left sided weakness hld htn Type 2 DM - uncontrolled Obesity Not compliant with meds leukocytosis, reactive likely constipation hypokalemia cdiff colitis neruogenic dysphagia with PEG plan: fu with gi, neuro on ASA, lipitor through PEG ON peg, DC ppn dc abx add stool softner fu for SNF, waiting for plan chante consulted, waiting for family meeting recheck UA, UCX since leukocytosis, repeat CXR still neg. check bcx neg, ID consulted replete K SSI, add levemir 25u qhs, aspart 8u tid add scopolamine patch flagyl tid x7d, abd CT neg [facility] in [place], not in [place]. cannot dc home since cannot set up HH, also cannot afford PEG feeding at home , counseling case manager , CHANTE lundberg, will do ethic committee meeting as per counseling case manager. History of Present Illness History of Present Illness ROS: no chills, sob or chest pain. afebrile could move left lower ext, cannot move since Wednesday WBC flucuates at 14-15, no sign of infection, one time 18, diarrhea since 04/06, + cdiff, abd CT neg hyperglycemia [facility] in [place], not in [place]. cannot dc home since cannot set up HH, also cannot afford PEG feeding at home Vitals Vitals Vital Signs Date Time Temp Pulse Resp B/P (MAP) Pulse Ox O2 Delivery O2 Flow Rate FiO2 04/07/17 11:00 97.5 65 20 126/69 (88) 96 Room Air 97.5 Physical Exam General: Alert, Cooperative, Other (arousable and following commands) Heart: Regular rate Lungs: Clear Abdomen: Soft, No tenderness Extremities: No clubbing, No cyanosis, No edema, Other (left arm paralyzed, left leg can move a little bit) Skin: No rashes, No breakdown Labs LABS Laboratory Tests Test 04/06/17 13:12 04/06/17 17:21 04/06/17 21:29 04/07/17 05:36 Clostridium difficile Toxin (PCR) Positive (Negative) Glucose (Fingerstick) 134 mg/dL (70-99) 170 mg/dL (70-99) White Blood Count 14.7 x10^3/uL (4.0-11.0) Red Blood Count 4.65 x10^6/uL (3.50-5.40) Hemoglobin 14.1 g/dL (12.0-15.5) Hematocrit 42.1 % (36.0-47.0) Mean Corpuscular Volume 91 fL (79-100) Mean Corpuscular Hemoglobin 30 pg (25-35) Mean Corpuscular Hemoglobin Concent 34 g/dL (31-37) Red Cell Distribution Width 12.7 % (11.5-14.5) Platelet Count 328 x10^3/uL (140-400) Neutrophils (%) (Auto) 76 % (31-73) Lymphocytes (%) (Auto) 12 % (24-48) Monocytes (%) (Auto) 7 % (0-9) Eosinophils (%) (Auto) 4 % (0-3) Basophils (%) (Auto) 1 % (0-3) Neutrophils # (Auto) 11.1 x10^3uL (1.8-7.7) Lymphocytes # (Auto) 1.8 x10^3/uL (1.0-4.8) Monocytes # (Auto) 1.1 x10^3/uL (0.0-1.1) Eosinophils # (Auto) 0.6 x10^3/uL (0.0-0.7) Basophils # (Auto) 0.1 x10^3/uL (0.0-0.2) Sodium Level 139 mmol/L (136-145) Potassium Level 4.3 mmol/L (3.5-5.1) Chloride Level 101 mmol/L (98-107) Carbon Dioxide Level 27 mmol/L (21-32) Anion Gap 11 (6-14) Blood Urea Nitrogen 21 mg/dL (7-20) Creatinine 0.9 mg/dL (0.6-1.0) Estimated GFR (Cockcroft-Gault) 62.3 Glucose Level 189 mg/dL (70-99) Calcium Level 8.7 mg/dL (8.5-10.1) Test 04/07/17 07:10 04/07/17 11:42 Glucose (Fingerstick) 238 mg/dL (70-99) 179 mg/dL (70-99) Assessment and Plan Assessmemt and Plan Problems Medical Problems: (1) CVA (cerebral vascular accident) Status: Acute Problems: Comment Review of Relevant I have reviewed the following items tamie (where applicable) has been applied. Labs Laboratory Tests Test 04/05/17 16:18 04/05/17 21:30 04/06/17 06:15 04/06/17 07:46 Glucose (Fingerstick) 193 mg/dL (70-99) 140 mg/dL (70-99) 223 mg/dL (70-99) White Blood Count 18.6 x10^3/uL (4.0-11.0) Red Blood Count 4.56 x10^6/uL (3.50-5.40) Hemoglobin 13.6 g/dL (12.0-15.5) Hematocrit 42.1 % (36.0-47.0) Mean Corpuscular Volume 92 fL (79-100) Mean Corpuscular Hemoglobin 30 pg (25-35) Mean Corpuscular Hemoglobin Concent 32 g/dL (31-37) Red Cell Distribution Width 13.0 % (11.5-14.5) Platelet Count 298 x10^3/uL (140-400) Neutrophils (%) (Auto) 75 % (31-73) Lymphocytes (%) (Auto) 11 % (24-48) Monocytes (%) (Auto) 9 % (0-9) Eosinophils (%) (Auto) 4 % (0-3) Basophils (%) (Auto) 1 % (0-3) Neutrophils # (Auto) 14.0 x10^3uL (1.8-7.7) Lymphocytes # (Auto) 2.1 x10^3/uL (1.0-4.8) Monocytes # (Auto) 1.7 x10^3/uL (0.0-1.1) Eosinophils # (Auto) 0.7 x10^3/uL (0.0-0.7) Basophils # (Auto) 0.2 x10^3/uL (0.0-0.2) Segmented Neutrophils % 67 % (35-66) Band Neutrophils % 6 % (0-9) Lymphocytes % 14 % (24-48) Atypical Lymphocytes % (Manual) 1 % (0-0) Monocytes % 8 % (0-10) Eosinophils % 4 % (0-5) Platelet Estimate Adequate (ADEQUATE) Sodium Level 139 mmol/L (136-145) Potassium Level 3.7 mmol/L (3.5-5.1) Chloride Level 101 mmol/L (98-107) Carbon Dioxide Level 29 mmol/L (21-32) Anion Gap 9 (6-14) Blood Urea Nitrogen 20 mg/dL (7-20) Creatinine 1.0 mg/dL (0.6-1.0) Estimated GFR (Cockcroft-Gault) 55.1 Glucose Level 197 mg/dL (70-99) Calcium Level 9.1 mg/dL (8.5-10.1) Test 04/06/17 11:26 04/06/17 13:12 04/06/17 17:21 04/06/17 21:29 Glucose (Fingerstick) 194 mg/dL (70-99) 134 mg/dL (70-99) 170 mg/dL (70-99) Clostridium difficile Toxin (PCR) Positive (Negative) Test 04/07/17 05:36 04/07/17 07:10 04/07/17 11:42 White Blood Count 14.7 x10^3/uL (4.0-11.0) Red Blood Count 4.65 x10^6/uL (3.50-5.40) Hemoglobin 14.1 g/dL (12.0-15.5) Hematocrit 42.1 % (36.0-47.0) Mean Corpuscular Volume 91 fL (79-100) Mean Corpuscular Hemoglobin 30 pg (25-35) Mean Corpuscular Hemoglobin Concent 34 g/dL (31-37) Red Cell Distribution Width 12.7 % (11.5-14.5) Platelet Count 328 x10^3/uL (140-400) Neutrophils (%) (Auto) 76 % (31-73) Lymphocytes (%) (Auto) 12 % (24-48) Monocytes (%) (Auto) 7 % (0-9) Eosinophils (%) (Auto) 4 % (0-3) Basophils (%) (Auto) 1 % (0-3) Neutrophils # (Auto) 11.1 x10^3uL (1.8-7.7) Lymphocytes # (Auto) 1.8 x10^3/uL (1.0-4.8) Monocytes # (Auto) 1.1 x10^3/uL (0.0-1.1) Eosinophils # (Auto) 0.6 x10^3/uL (0.0-0.7) Basophils # (Auto) 0.1 x10^3/uL (0.0-0.2) Sodium Level 139 mmol/L (136-145) Potassium Level 4.3 mmol/L (3.5-5.1) Chloride Level 101 mmol/L (98-107) Carbon Dioxide Level 27 mmol/L (21-32) Anion Gap 11 (6-14) Blood Urea Nitrogen 21 mg/dL (7-20) Creatinine 0.9 mg/dL (0.6-1.0) Estimated GFR (Cockcroft-Gault) 62.3 Glucose Level 189 mg/dL (70-99) Calcium Level 8.7 mg/dL (8.5-10.1) Glucose (Fingerstick) 238 mg/dL (70-99) 179 mg/dL (70-99) Laboratory Tests Test 04/06/17 13:12 04/06/17 17:21 04/06/17 21:29 04/07/17 05:36 Clostridium difficile Toxin (PCR) Positive (Negative) Glucose (Fingerstick) 134 mg/dL (70-99) 170 mg/dL (70-99) White Blood Count 14.7 x10^3/uL (4.0-11.0) Red Blood Count 4.65 x10^6/uL (3.50-5.40) Hemoglobin 14.1 g/dL (12.0-15.5) Hematocrit 42.1 % (36.0-47.0) Mean Corpuscular Volume 91 fL (79-100) Mean Corpuscular Hemoglobin 30 pg (25-35) Mean Corpuscular Hemoglobin Concent 34 g/dL (31-37) Red Cell Distribution Width 12.7 % (11.5-14.5) Platelet Count 328 x10^3/uL (140-400) Neutrophils (%) (Auto) 76 % (31-73) Lymphocytes (%) (Auto) 12 % (24-48) Monocytes (%) (Auto) 7 % (0-9) Eosinophils (%) (Auto) 4 % (0-3) Basophils (%) (Auto) 1 % (0-3) Neutrophils # (Auto) 11.1 x10^3uL (1.8-7.7) Lymphocytes # (Auto) 1.8 x10^3/uL (1.0-4.8) Monocytes # (Auto) 1.1 x10^3/uL (0.0-1.1) Eosinophils # (Auto) 0.6 x10^3/uL (0.0-0.7) Basophils # (Auto) 0.1 x10^3/uL (0.0-0.2) Sodium Level 139 mmol/L (136-145) Potassium Level 4.3 mmol/L (3.5-5.1) Chloride Level 101 mmol/L (98-107) Carbon Dioxide Level 27 mmol/L (21-32) Anion Gap 11 (6-14) Blood Urea Nitrogen 21 mg/dL (7-20) Creatinine 0.9 mg/dL (0.6-1.0) Estimated GFR (Cockcroft-Gault) 62.3 Glucose Level 189 mg/dL (70-99) Calcium Level 8.7 mg/dL (8.5-10.1) Test 04/07/17 07:10 04/07/17 11:42 Glucose (Fingerstick) 238 mg/dL (70-99) 179 mg/dL (70-99) Microbiology 04/03/17 Blood Culture - Preliminary, Resulted NO GROWTH AFTER 4 DAYS Medications Current Medications Insulin Aspart (NovoLOG) 0-5 UNITS TIDWMEALS SQ Last administered on 03/31/17 17:31; Start 03/24/17 at 17:00; Stop 04/01/17 at 09:20; Status DC Dextrose (Dextrose 50%-Water Syringe) 12.5 gm PRN Q15MIN PRN IV SEE COMMENTS; Start 03/24/17 at 12:30 Ceftriaxone Sodium 50 ml @ 100 mls/hr 1X ONCE IV Last administered on 13:33; Start 03/24/17 at 13:30; Stop 03/24/17 at 13:59; Status DC Ceftriaxone Sodium 1 gm/ Sodium Chloride 50 ml @ 100 mls/hr Q24H IV Last administered on 03/30/17 13:23; Start 03/25/17 at 14:00; Stop 03/31/17 at 14:28 ; Status DC Ondansetron HCl (Zofran) 4 mg PRN Q8HRS PRN IV NAUSEA/VOMITING; Start 03/24/17 at 13:30; Stop 03/25/17 at 13:29; Status DC Sodium Chloride 1,000 ml @ 125 mls/hr Q8H IV Last administered on 03/24/17 13 :37; Start 03/24/17 at 13:45; Stop 03/25/17 at 08:53; Status DC Aspirin (Aspirin) 300 mg 1X ONCE OR Last administered on 03/24/17 13:45; Start 03/24/17 at 13:45; Stop 03/24/17 at 13:46; Status DC Sodium Chloride (Normal Saline Flush) 3 ml QSHIFT PRN IV AFTER MEDS AND BLOOD DRAWS; Start 03/24/17 at 13:45 Sodium Chloride 1,000 ml @ 100 mls/hr Q10H IV Last administered on 03/25/17 01:22; Start 03/24/17 at 14:00; Stop 03/25/17 at 08:53; Status DC Aspirin (Ecotrin) 325 mg DAILYWBKFT PO Last administered on 04/07/17 08:42; Start 03/25/17 at 08:00 Atorvastatin Calcium (Lipitor) 20 mg QHS PO Last administered on 04/03/17 21:25 ; Start 03/24/17 at 21:00; Stop 04/04/17 at 14:01; Status DC Labetalol HCl (Normodyne) 10 mg PRN Q10MIN PRN IV HYPERTENSION, SEE COMMENTS Last administered on 03/25/17 20:08; Start 03/24/17 at 13:45 Acetaminophen (Tylenol) 650 mg PRN Q6HRS PRN PO FEVER; Start 03/24/17 at 13:45 ; Stop 03/29/17 at 21:13; Status DC Acetaminophen (Acetaminophen Supp) 650 mg PRN Q6HRS PRN OR FEVER Last administered on 03/28/17 21:42; Start 03/24/17 at 13:45; Stop 03/31/17 at 14:28 ; Status DC Enoxaparin Sodium (Lovenox 40mg Syringe) 40 mg Q24H SQ Last administered on 15:26; Start 03/24/17 at 15:00; Stop 03/29/17 at 08:44; Status DC Iohexol (Omnipaque 350 Mg/ml) 60 ml 1X ONCE IV Last administered on 03/24/17 16:25; Start 03/24/17 at 16:15; Stop 03/24/17 at 16:20; Status DC Info (Do NOT chart on this entry -- for MONITORING) 1 each PRN DAILY PRN MC SEE COMMENTS; Start 03/24/17 at 16:30; Stop 03/26/17 at 16:29; Status DC Ondansetron HCl (Zofran) 4 mg PRN Q6HRS PRN IV NAUSEA/VOMITING; Start 03/24/17 at 16:30 Amino Acids/ Glycerin/ Electrolytes 1,000 ml @ 80 mls/hr [id number] IV Last administered on 03/31/17 03:34; Start 03/25/17 at 09:30; Stop 03/31/17 at 12:13 ; Status DC Barium Sulfate (Varibar Thin Liquid Apple) 148 gm 1X ONCE PO Last administered on 03/26/17 13:30; Start 03/26/17 at 13:30; Stop 03/26/17 at 13:31 ; Status DC Ringer's Solution 1,000 ml @ 50 mls/hr Q20H IV ; Start 03/29/17 at 07:00; Stop 03/29/17 at 07:28; Status DC Diphenhydramine HCl (Benadryl) 25 mg PRN Q6HRS PRN IVP ITCHING Last administered on 04/03/17 13:24; Start 03/26/17 at 23:00 Potassium Chloride 50 ml @ 50 mls/hr Q1H IV ; Start 03/27/17 at 13:00; Stop at 14:59; Status UNV Potassium Chloride 100 ml @ 100 mls/hr Q1H IV Last administered on 03/27/17 19:45; Start 03/27/17 at 13:00; Stop 03/27/17 at 16:59; Status DC Ringer's Solution 1,000 ml @ 50 mls/hr Q20H IV ; Start 03/29/17 at 13:00; Stop 03/29/17 at 19:13; Status DC Midazolam HCl (Versed) 2 mg PRN 1X PRN IV PRIOR TO PROCEDURE; Start 03/29/17 at 12:15; Stop 03/29/17 at 15:49; Status DC Fentanyl Citrate (Fentanyl 2ml Vial) 25 mcg PRN Q5MIN PRN IV X 2 DOSES FOR PAIN ; Start 03/29/17 at 12:15; Stop 03/29/17 at 15:49; Status DC Fentanyl Citrate (Fentanyl 2ml Vial) 50 mcg PRN Q5MIN PRN IV X 2 DOSES FOR PAIN ; Start 03/29/17 at 12:15; Stop 03/29/17 at 15:49; Status DC Ringer's Solution 1,000 ml @ 125 mls/hr Q8H IV Last administered on 03/29/17 12:38; Start 03/29/17 at 12:07; Stop 03/29/17 at 17:31; Status DC Lidocaine HCl 2 ml 1X PRN PRN ID IV START; Start 03/29/17 at 12:15; Stop at 12:14; Status DC Propofol 20 ml @ As Directed STK-MED ONCE IV ; Start 03/29/17 at 12:29; Stop at 12:30; Status DC Morphine Sulfate 1 mg PRN Q2HR PRN IV PAIN Last administered on 04/06/17 23:39 ; Start 03/29/17 at 16:15 Morphine Sulfate 2 mg PRN Q2HR PRN IV PAIN Last administered on 04/03/17 02:41 ; Start 03/29/17 at 16:15; Stop 04/06/17 at 12:12; Status DC Acetaminophen (Tylenol) 650 mg PRN Q6HRS PRN PEG MILD PAIN / TEMP Last administered on 04/05/17 20:38; Start 03/29/17 at 21:15 Senna/Docusate Sodium (Senna Plus) 1 tab BID PO Last administered on 04/06/17 09:06; Start 03/31/17 at 21:00 Docusate Sodium (Colace) 100 mg BID PO Last administered on 04/05/17 20:38; Start 03/31/17 at 21:00 Magnesium Hydroxide (Milk Of Magnesia) 2,400 mg PRN Q12HR PRN PO CONSTIPATION; Start 03/31/17 at 12:15 Potassium Chloride (KCl Oral Soln) 40 meq 1X ONCE PEG Last administered on 11:30; Start 04/01/17 at 11:15; Stop 04/01/17 at 11:16; Status DC Insulin Aspart (NovoLOG) 0-9 UNITS TIDWMEALS SQ Last administered on 04/07/17 09:02; Start 04/01/17 at 12:00 Dextrose (Dextrose 50%-Water Syringe) 12.5 gm PRN Q15MIN PRN IV SEE COMMENTS; Start 04/01/17 at 11:15; Status UNV Insulin Detemir (Levemir) 10 units QHS SQ Last administered on 04/01/17 21:49 ; Start 04/01/17 at 21:00; Stop 04/02/17 at 08:18; Status DC Insulin Detemir (Levemir) 15 units QHS SQ Last administered on 04/02/17 21:21; Start 04/02/17 at 21:00; Stop 04/03/17 at 13:21; Status DC Insulin Aspart (NovoLOG) 5 units TIDAC SQ Last administered on 04/03/17 12:49; Start 04/02/17 at 11:30; Stop 04/03/17 at 13:21; Status DC Scopolamine (Transderm-Scop) 1 patch Q3DAYS TD Last administered on 04/05/17 09 :16; Start 04/02/17 at 10:00 Insulin Aspart (NovoLOG) 7 units TIDAC SQ Last administered on 04/07/17 09:01; Start 04/03/17 at 16:30 Insulin Detemir (Levemir) 20 units QHS SQ Last administered on 04/04/17 20:53; Start 04/03/17 at 21:00; Stop 04/05/17 at 08:47; Status DC Atorvastatin Calcium (Lipitor) 40 mg QHS PO Last administered on 04/06/17 19:58 ; Start 04/04/17 at 21:00 Insulin Detemir (Levemir) 22 units QHS SQ ; Start 04/05/17 at 21:00; Stop at 21:00; Status DC Insulin Detemir (Levemir) 25 units QHS SQ Last administered on 04/06/17 21:58; Start 04/05/17 at 21:00 Iohexol (Omnipaque 240 Mg/ml) 50 ml 1X ONCE PO Last administered on 04/06/17 11:45; Start 04/06/17 at 11:45; Stop 04/06/17 at 11:46; Status DC Iohexol (Omnipaque 300 Mg/ml) 60 ml 1X ONCE IV Last administered on 04/06/17 13:29; Start 04/06/17 at 11:45; Stop 04/06/17 at 11:46; Status DC Info (Do NOT chart on this entry -- for MONITORING) 1 each PRN DAILY PRN MC SEE COMMENTS; Start 04/06/17 at 11:45; Stop 04/08/17 at 11:44 Iohexol (Omnipaque 300 Mg/ml) 75 ml STK-MED ONCE .ROUTE ; Start 04/06/17 at 15:05 ; Stop 04/06/17 at 15:06; Status DC Iohexol (Omnipaque 240 Mg/ml) 50 ml STK-MED ONCE .ROUTE ; Start 04/06/17 at 15:06 ; Stop 04/06/17 at 15:07; Status DC Metronidazole 100 ml @ 100 mls/hr Q8HRS IV Last administered on 04/06/17 21:49 ; Start 04/06/17 at 22:00; Stop 04/07/17 at 06:02; Status DC Metronidazole (Flagyl) 500 mg Q8HRS NG Last administered on 04/07/17 06:19; Start 04/07/17 at 06:30 Active Scripts Active Transderm-Scop (Scopolamine) 1 Each Patch.td72 1 Patch TD Q3DAYS 30 Days Flagyl (Metronidazole) 500 Mg Tablet 500 Mg NG Q8HRS 14 Days Levemir Flextouch (Insulin Detemir) 100 Unit/1 Ml Insuln.pen 25 Units SQ QHS 30 Days Novolog Flexpen (Insulin Aspart) 100 Unit/1 Ml Insuln.pen 7 Units SQ TIDAC 30 Days Atorvastatin Calcium 40 Mg Tablet 40 Mg PO QHS 30 Days Aspirin Ec (Aspirin) 325 Mg Tablet. 325 Mg PO DAILYWBKFT 30 Days Reported Atorvastatin Calcium 40 Mg Tablet 1 Tab PO DAILY Vitals/I & O Vital Sign - Last 24 Hours 04/06/17 04/06/17 04/06/17 04/06/17 15:07 19:50 20:10 23:55 Temp 97.7 98.8 98.2 97.7 98.8 98.2 Pulse 52 71 88 Resp 20 16 18 B/P (MAP) 153/51 (85) 114/57 (76) 139/99 (112) Pulse Ox 95 92 97 O2 Delivery Room Air Room Air Room Air Room Air 04/07/17 04/07/17 04/07/17 04/07/17 03:45 07:00 08:00 11:00 Temp 98.0 97.5 98.0 97.5 Pulse 76 63 65 Resp 20 18 20 B/P (MAP) 142/63 (89) 152/62 (92) 126/69 (88) Pulse Ox 96 95 96 O2 Delivery Room Air Room Air Room Air Room Air Intake and Output 04/07/17 04/07/17 04/08/17 15:00 23:00 07:00 Intake Total 120 ml Balance 120 ml ANA WOODSON MD Apr 07, 2017 12:51
[2017-04-07 15:00] VITALS: BP 120/57
[2017-04-07 19:59] VITALS: BP 109/36
[2017-04-07] MEDS: ATORVASTATIN CALCIUM 40 MG TABLET. PO SCH (21:23)
[2017-04-07] MEDS: diphenhydrAMINE 50 MG/ML VIAL IVP PRN (21:23)
[2017-04-07] MEDS: INSULIN DETEMIR 300 UNITS/3 ML INSULN.PEN. SQ SCH (21:35)
[2017-04-08 03:05] VITALS: BP 154/77
[2017-04-08] MEDS: metroNIDAZOLE 500 MG TABLET NG SCH ×3 (04:41→21:26)
[2017-04-08] MEDS: ACETAMINOPHEN 650 MG/20.3 ML SOLUTION. PEG PRN (04:41)
[2017-04-08 04:59] LABS: BASO # 0.1 x10^3/uL (0.0-0.2); BASO % 1 % (0-3); EOS % 8 % (0-3); HEMATOCRIT 42.1 % (36.0-47.0); HEMOGLOBIN 13.8 g/dL (12.0-15.5); LYMPH # 1.5 x10^3/uL (1.0-4.8); LYMPH % 10 % (24-48); MEAN CORPUSCULAR HEMOGLOBIN 30 pg (25-35); MEAN CORPUSCULAR HGB CONC 33 g/dL (31-37); MEAN CORPUSCULAR VOLUME 91 fL (79-100); MONO % 7 % (0-9); NEUT % 75 % (31-73); PLATELET COUNT 358 x10^3/uL (140-400); RED BLOOD COUNT 4.62 x10^6/uL (3.50-5.40); WHITE BLOOD COUNT 15.5 x10^3/uL (4.0-11.0)
[2017-04-08 07:00] VITALS: BP 122/74
[2017-04-08] MEDS: SCOPOLAMINE 1.5MG PATCH. TD SCH (07:57)
[2017-04-08] MEDS: DOCUSATE SODIUM 100 MG CAPSULE. PO SCH ×2 (07:57→21:26)
[2017-04-08] MEDS: ASPIRIN ENTERIC COATED 325 MG TABLET.DR. PO SCH (07:58)
[2017-04-08] MEDS: SENNOSIDES/DOCUSATE 8.6/50MG TABLET. PO SCH ×2 (07:58→21:26)
[2017-04-08] MEDS: INSULIN ASPART 300 UNITS/3 ML INSULN.PEN SQ SCH ×6 (08:15→17:00)
[2017-04-08 11:00] VITALS: BP 132/59
--- NOTE | 2017-04-08 12:36 | PDOC ---
PROGRESS NOTES Chief Complaint Chief Complaint CVA with left sided weakness hld htn Type 2 DM - uncontrolled Obesity Not compliant with meds leukocytosis, reactive likely constipation hypokalemia cdiff colitis neruogenic dysphagia with PEG plan: fu with gi, neuro on ASA, lipitor through PEG ON peg, DC ppn add stool softner fu for SNF, waiting for plan emil consulted, waiting for family meeting recheck UA, UCX since leukocytosis, repeat CXR still neg. check bcx neg, ID consulted replete K SSI, add levemir 25u qhs, aspart 8u tid add scopolamine patch flagyl tid x7d, abd CT neg [employer] in [place], not in [place]. cannot dc home since cannot set up HH, also cannot afford PEG feeding at home UBALDO, telephonic nurse case manager , EMIL fu, will do ethic committee meeting as per telephonic nurse case manager. History of Present Illness History of Present Illness ROS: no chills, sob or chest pain. afebrile could move left lower ext, cannot move since Wednesday WBC flucuates at 14-15, no sign of infection, one time 18, diarrhea since 04/06, no BM 04/07, + cdiff, abd CT neg hyperglycemia better [facility] in [place], not in [place]. cannot dc home since cannot set up HH, also cannot afford PEG feeding at home Vitals Vitals Vital Signs Date Time Temp Pulse Resp B/P (MAP) Pulse Ox O2 Delivery O2 Flow Rate FiO2 04/08/17 11:00 97.9 64 17 132/59 (83) 95 Room Air 97.9 Physical Exam General: Alert, Cooperative, Other (arousable and following commands) Heart: Regular rate Lungs: Clear Abdomen: Soft, No tenderness Extremities: No clubbing, No cyanosis, No edema, Other (left arm paralyzed, left leg can move a little bit) Skin: No rashes, No breakdown Labs LABS Laboratory Tests Test 04/07/17 17:01 04/07/17 21:24 04/08/17 04:35 04/08/17 07:35 Glucose (Fingerstick) 149 mg/dL (70-99) 155 mg/dL (70-99) 257 mg/dL (70-99) White Blood Count 15.5 x10^3/uL (4.0-11.0) Red Blood Count 4.62 x10^6/uL (3.50-5.40) Hemoglobin 13.8 g/dL (12.0-15.5) Hematocrit 42.1 % (36.0-47.0) Mean Corpuscular Volume 91 fL (79-100) Mean Corpuscular Hemoglobin 30 pg (25-35) Mean Corpuscular Hemoglobin Concent 33 g/dL (31-37) Red Cell Distribution Width 13.0 % (11.5-14.5) Platelet Count 358 x10^3/uL (140-400) Neutrophils (%) (Auto) 75 % (31-73) Lymphocytes (%) (Auto) 10 % (24-48) Monocytes (%) (Auto) 7 % (0-9) Eosinophils (%) (Auto) 8 % (0-3) Basophils (%) (Auto) 1 % (0-3) Neutrophils # (Auto) 11.5 x10^3uL (1.8-7.7) Lymphocytes # (Auto) 1.5 x10^3/uL (1.0-4.8) Monocytes # (Auto) 1.2 x10^3/uL (0.0-1.1) Eosinophils # (Auto) 1.2 x10^3/uL (0.0-0.7) Basophils # (Auto) 0.1 x10^3/uL (0.0-0.2) Test 04/08/17 11:33 Glucose (Fingerstick) 146 mg/dL (70-99) Assessment and Plan Assessmemt and Plan Problems Medical Problems: (1) CVA (cerebral vascular accident) Status: Acute Problems: Comment Review of Relevant I have reviewed the following items tamie (where applicable) has been applied. Labs Laboratory Tests Test 04/06/17 13:12 04/06/17 17:21 04/06/17 21:29 04/07/17 05:36 Clostridium difficile Toxin (PCR) Positive (Negative) Glucose (Fingerstick) 134 mg/dL (70-99) 170 mg/dL (70-99) White Blood Count 14.7 x10^3/uL (4.0-11.0) Red Blood Count 4.65 x10^6/uL (3.50-5.40) Hemoglobin 14.1 g/dL (12.0-15.5) Hematocrit 42.1 % (36.0-47.0) Mean Corpuscular Volume 91 fL (79-100) Mean Corpuscular Hemoglobin 30 pg (25-35) Mean Corpuscular Hemoglobin Concent 34 g/dL (31-37) Red Cell Distribution Width 12.7 % (11.5-14.5) Platelet Count 328 x10^3/uL (140-400) Neutrophils (%) (Auto) 76 % (31-73) Lymphocytes (%) (Auto) 12 % (24-48) Monocytes (%) (Auto) 7 % (0-9) Eosinophils (%) (Auto) 4 % (0-3) Basophils (%) (Auto) 1 % (0-3) Neutrophils # (Auto) 11.1 x10^3uL (1.8-7.7) Lymphocytes # (Auto) 1.8 x10^3/uL (1.0-4.8) Monocytes # (Auto) 1.1 x10^3/uL (0.0-1.1) Eosinophils # (Auto) 0.6 x10^3/uL (0.0-0.7) Basophils # (Auto) 0.1 x10^3/uL (0.0-0.2) Sodium Level 139 mmol/L (136-145) Potassium Level 4.3 mmol/L (3.5-5.1) Chloride Level 101 mmol/L (98-107) Carbon Dioxide Level 27 mmol/L (21-32) Anion Gap 11 (6-14) Blood Urea Nitrogen 21 mg/dL (7-20) Creatinine 0.9 mg/dL (0.6-1.0) Estimated GFR (Cockcroft-Gault) 62.3 Glucose Level 189 mg/dL (70-99) Calcium Level 8.7 mg/dL (8.5-10.1) Test 04/07/17 07:10 04/07/17 11:42 04/07/17 17:01 04/07/17 21:24 Glucose (Fingerstick) 238 mg/dL (70-99) 179 mg/dL (70-99) 149 mg/dL (70-99) 155 mg/dL (70-99) Test 04/08/17 04:35 04/08/17 07:35 04/08/17 11:33 White Blood Count 15.5 x10^3/uL (4.0-11.0) Red Blood Count 4.62 x10^6/uL (3.50-5.40) Hemoglobin 13.8 g/dL (12.0-15.5) Hematocrit 42.1 % (36.0-47.0) Mean Corpuscular Volume 91 fL (79-100) Mean Corpuscular Hemoglobin 30 pg (25-35) Mean Corpuscular Hemoglobin Concent 33 g/dL (31-37) Red Cell Distribution Width 13.0 % (11.5-14.5) Platelet Count 358 x10^3/uL (140-400) Neutrophils (%) (Auto) 75 % (31-73) Lymphocytes (%) (Auto) 10 % (24-48) Monocytes (%) (Auto) 7 % (0-9) Eosinophils (%) (Auto) 8 % (0-3) Basophils (%) (Auto) 1 % (0-3) Neutrophils # (Auto) 11.5 x10^3uL (1.8-7.7) Lymphocytes # (Auto) 1.5 x10^3/uL (1.0-4.8) Monocytes # (Auto) 1.2 x10^3/uL (0.0-1.1) Eosinophils # (Auto) 1.2 x10^3/uL (0.0-0.7) Basophils # (Auto) 0.1 x10^3/uL (0.0-0.2) Glucose (Fingerstick) 257 mg/dL (70-99) 146 mg/dL (70-99) Laboratory Tests Test 04/07/17 17:01 04/07/17 21:24 04/08/17 04:35 04/08/17 07:35 Glucose (Fingerstick) 149 mg/dL (70-99) 155 mg/dL (70-99) 257 mg/dL (70-99) White Blood Count 15.5 x10^3/uL (4.0-11.0) Red Blood Count 4.62 x10^6/uL (3.50-5.40) Hemoglobin 13.8 g/dL (12.0-15.5) Hematocrit 42.1 % (36.0-47.0) Mean Corpuscular Volume 91 fL (79-100) Mean Corpuscular Hemoglobin 30 pg (25-35) Mean Corpuscular Hemoglobin Concent 33 g/dL (31-37) Red Cell Distribution Width 13.0 % (11.5-14.5) Platelet Count 358 x10^3/uL (140-400) Neutrophils (%) (Auto) 75 % (31-73) Lymphocytes (%) (Auto) 10 % (24-48) Monocytes (%) (Auto) 7 % (0-9) Eosinophils (%) (Auto) 8 % (0-3) Basophils (%) (Auto) 1 % (0-3) Neutrophils # (Auto) 11.5 x10^3uL (1.8-7.7) Lymphocytes # (Auto) 1.5 x10^3/uL (1.0-4.8) Monocytes # (Auto) 1.2 x10^3/uL (0.0-1.1) Eosinophils # (Auto) 1.2 x10^3/uL (0.0-0.7) Basophils # (Auto) 0.1 x10^3/uL (0.0-0.2) Test 04/08/17 11:33 Glucose (Fingerstick) 146 mg/dL (70-99) Microbiology 04/03/17 Blood Culture - Final, Complete NO GROWTH AFTER 5 DAYS Medications Current Medications Insulin Aspart (NovoLOG) 0-5 UNITS TIDWMEALS SQ Last administered on 03/31/17 17:31; Start 03/24/17 at 17:00; Stop 04/01/17 at 09:20; Status DC Dextrose (Dextrose 50%-Water Syringe) 12.5 gm PRN Q15MIN PRN IV SEE COMMENTS; Start 03/24/17 at 12:30 Ceftriaxone Sodium 50 ml @ 100 mls/hr 1X ONCE IV Last administered on 13:33; Start 03/24/17 at 13:30; Stop 03/24/17 at 13:59; Status DC Ceftriaxone Sodium 1 gm/ Sodium Chloride 50 ml @ 100 mls/hr Q24H IV Last administered on 03/30/17 13:23; Start 03/25/17 at 14:00; Stop 03/31/17 at 14:28 ; Status DC Ondansetron HCl (Zofran) 4 mg PRN Q8HRS PRN IV NAUSEA/VOMITING; Start 03/24/17 at 13:30; Stop 03/25/17 at 13:29; Status DC Sodium Chloride 1,000 ml @ 125 mls/hr Q8H IV Last administered on 03/24/17 13 :37; Start 03/24/17 at 13:45; Stop 03/25/17 at 08:53; Status DC Aspirin (Aspirin) 300 mg 1X ONCE IN Last administered on 03/24/17 13:45; Start 03/24/17 at 13:45; Stop 03/24/17 at 13:46; Status DC Sodium Chloride (Normal Saline Flush) 3 ml QSHIFT PRN IV AFTER MEDS AND BLOOD DRAWS; Start 03/24/17 at 13:45 Sodium Chloride 1,000 ml @ 100 mls/hr Q10H IV Last administered on 03/25/17 01:22; Start 03/24/17 at 14:00; Stop 03/25/17 at 08:53; Status DC Aspirin (Ecotrin) 325 mg DAILYWBKFT PO Last administered on 04/08/17 07:58; Start 03/25/17 at 08:00 Atorvastatin Calcium (Lipitor) 20 mg QHS PO Last administered on 04/03/17 21:25 ; Start 03/24/17 at 21:00; Stop 04/04/17 at 14:01; Status DC Labetalol HCl (Normodyne) 10 mg PRN Q10MIN PRN IV HYPERTENSION, SEE COMMENTS Last administered on 03/25/17 20:08; Start 03/24/17 at 13:45 Acetaminophen (Tylenol) 650 mg PRN Q6HRS PRN PO FEVER; Start 03/24/17 at 13:45 ; Stop 03/29/17 at 21:13; Status DC Acetaminophen (Acetaminophen Supp) 650 mg PRN Q6HRS PRN IN FEVER Last administered on 03/28/17 21:42; Start 03/24/17 at 13:45; Stop 03/31/17 at 14:28 ; Status DC Enoxaparin Sodium (Lovenox 40mg Syringe) 40 mg Q24H SQ Last administered on 15:26; Start 03/24/17 at 15:00; Stop 03/29/17 at 08:44; Status DC Iohexol (Omnipaque 350 Mg/ml) 60 ml 1X ONCE IV Last administered on 03/24/17 16:25; Start 03/24/17 at 16:15; Stop 03/24/17 at 16:20; Status DC Info (Do NOT chart on this entry -- for MONITORING) 1 each PRN DAILY PRN MC SEE COMMENTS; Start 03/24/17 at 16:30; Stop 03/26/17 at 16:29; Status DC Ondansetron HCl (Zofran) 4 mg PRN Q6HRS PRN IV NAUSEA/VOMITING; Start 03/24/17 at 16:30 Amino Acids/ Glycerin/ Electrolytes 1,000 ml @ 80 mls/hr [id number] IV Last administered on 03/31/17 03:34; Start 03/25/17 at 09:30; Stop 03/31/17 at 12:13 ; Status DC Barium Sulfate (Varibar Thin Liquid Apple) 148 gm 1X ONCE PO Last administered on 03/26/17 13:30; Start 03/26/17 at 13:30; Stop 03/26/17 at 13:31 ; Status DC Ringer's Solution 1,000 ml @ 50 mls/hr Q20H IV ; Start 03/29/17 at 07:00; Stop 03/29/17 at 07:28; Status DC Diphenhydramine HCl (Benadryl) 25 mg PRN Q6HRS PRN IVP ITCHING Last administered on 04/07/17 21:23; Start 03/26/17 at 23:00 Potassium Chloride 50 ml @ 50 mls/hr Q1H IV ; Start 03/27/17 at 13:00; Stop at 14:59; Status UNV Potassium Chloride 100 ml @ 100 mls/hr Q1H IV Last administered on 03/27/17 19:45; Start 03/27/17 at 13:00; Stop 03/27/17 at 16:59; Status DC Ringer's Solution 1,000 ml @ 50 mls/hr Q20H IV ; Start 03/29/17 at 13:00; Stop 03/29/17 at 19:13; Status DC Midazolam HCl (Versed) 2 mg PRN 1X PRN IV PRIOR TO PROCEDURE; Start 03/29/17 at 12:15; Stop 03/29/17 at 15:49; Status DC Fentanyl Citrate (Fentanyl 2ml Vial) 25 mcg PRN Q5MIN PRN IV X 2 DOSES FOR PAIN ; Start 03/29/17 at 12:15; Stop 03/29/17 at 15:49; Status DC Fentanyl Citrate (Fentanyl 2ml Vial) 50 mcg PRN Q5MIN PRN IV X 2 DOSES FOR PAIN ; Start 03/29/17 at 12:15; Stop 03/29/17 at 15:49; Status DC Ringer's Solution 1,000 ml @ 125 mls/hr Q8H IV Last administered on 03/29/17 12:38; Start 03/29/17 at 12:07; Stop 03/29/17 at 17:31; Status DC Lidocaine HCl 2 ml 1X PRN PRN ID IV START; Start 03/29/17 at 12:15; Stop at 12:14; Status DC Propofol 20 ml @ As Directed STK-MED ONCE IV ; Start 03/29/17 at 12:29; Stop at 12:30; Status DC Morphine Sulfate 1 mg PRN Q2HR PRN IV PAIN Last administered on 04/06/17 23:39 ; Start 03/29/17 at 16:15 Morphine Sulfate 2 mg PRN Q2HR PRN IV PAIN Last administered on 04/03/17 02:41 ; Start 03/29/17 at 16:15; Stop 04/06/17 at 12:12; Status DC Acetaminophen (Tylenol) 650 mg PRN Q6HRS PRN PEG MILD PAIN / TEMP Last administered on 04/08/17 04:41; Start 03/29/17 at 21:15 Senna/Docusate Sodium (Senna Plus) 1 tab BID PO Last administered on 04/08/17 07:58; Start 03/31/17 at 21:00 Docusate Sodium (Colace) 100 mg BID PO Last administered on 04/08/17 07:57; Start 03/31/17 at 21:00 Magnesium Hydroxide (Milk Of Magnesia) 2,400 mg PRN Q12HR PRN PO CONSTIPATION; Start 03/31/17 at 12:15 Potassium Chloride (KCl Oral Soln) 40 meq 1X ONCE PEG Last administered on 11:30; Start 04/01/17 at 11:15; Stop 04/01/17 at 11:16; Status DC Insulin Aspart (NovoLOG) 0-9 UNITS TIDWMEALS SQ Last administered on 04/08/17 08:16; Start 04/01/17 at 12:00 Dextrose (Dextrose 50%-Water Syringe) 12.5 gm PRN Q15MIN PRN IV SEE COMMENTS; Start 04/01/17 at 11:15; Status UNV Insulin Detemir (Levemir) 10 units QHS SQ Last administered on 04/01/17 21:49 ; Start 04/01/17 at 21:00; Stop 04/02/17 at 08:18; Status DC Insulin Detemir (Levemir) 15 units QHS SQ Last administered on 04/02/17 21:21; Start 04/02/17 at 21:00; Stop 04/03/17 at 13:21; Status DC Insulin Aspart (NovoLOG) 5 units TIDAC SQ Last administered on 04/03/17 12:49; Start 04/02/17 at 11:30; Stop 04/03/17 at 13:21; Status DC Scopolamine (Transderm-Scop) 1 patch Q3DAYS TD Last administered on 04/08/17 07 :57; Start 04/02/17 at 10:00 Insulin Aspart (NovoLOG) 7 units TIDAC SQ Last administered on 04/07/17 09:01; Start 04/03/17 at 16:30; Stop 04/07/17 at 12:49; Status DC Insulin Detemir (Levemir) 20 units QHS SQ Last administered on 04/04/17 20:53; Start 04/03/17 at 21:00; Stop 04/05/17 at 08:47; Status DC Atorvastatin Calcium (Lipitor) 40 mg QHS PO Last administered on 04/07/17 21:23 ; Start 04/04/17 at 21:00 Insulin Detemir (Levemir) 22 units QHS SQ ; Start 04/05/17 at 21:00; Stop at 21:00; Status DC Insulin Detemir (Levemir) 25 units QHS SQ Last administered on 04/07/17 21:35; Start 04/05/17 at 21:00 Iohexol (Omnipaque 240 Mg/ml) 50 ml 1X ONCE PO Last administered on 04/06/17 11:45; Start 04/06/17 at 11:45; Stop 04/06/17 at 11:46; Status DC Iohexol (Omnipaque 300 Mg/ml) 60 ml 1X ONCE IV Last administered on 04/06/17 13:29; Start 04/06/17 at 11:45; Stop 04/06/17 at 11:46; Status DC Info (Do NOT chart on this entry -- for MONITORING) 1 each PRN DAILY PRN MC SEE COMMENTS; Start 04/06/17 at 11:45; Stop 04/08/17 at 11:44; Status DC Iohexol (Omnipaque 300 Mg/ml) 75 ml STK-MED ONCE .ROUTE ; Start 04/06/17 at 15:05 ; Stop 04/06/17 at 15:06; Status DC Iohexol (Omnipaque 240 Mg/ml) 50 ml STK-MED ONCE .ROUTE ; Start 04/06/17 at 15:06 ; Stop 04/06/17 at 15:07; Status DC Metronidazole 100 ml @ 100 mls/hr Q8HRS IV Last administered on 04/06/17 21:49 ; Start 04/06/17 at 22:00; Stop 04/07/17 at 06:02; Status DC Metronidazole (Flagyl) 500 mg Q8HRS NG Last administered on 04/08/17 04:41; Start 04/07/17 at 06:30 Insulin Aspart (NovoLOG) 8 units TIDAC SQ Last administered on 04/08/17 12:24; Start 04/07/17 at 16:30 Active Scripts Active Transderm-Scop (Scopolamine) 1 Each Patch.td72 1 Patch TD Q3DAYS 30 Days Flagyl (Metronidazole) 500 Mg Tablet 500 Mg NG Q8HRS 14 Days Levemir Flextouch (Insulin Detemir) 100 Unit/1 Ml Insuln.pen 25 Units SQ QHS 30 Days Novolog Flexpen (Insulin Aspart) 100 Unit/1 Ml Insuln.pen 7 Units SQ TIDAC 30 Days Atorvastatin Calcium 40 Mg Tablet 40 Mg PO QHS 30 Days Aspirin Ec (Aspirin) 325 Mg Tablet.dr 325 Mg PO DAILYWBKFT 30 Days Reported Atorvastatin Calcium 40 Mg Tablet 1 Tab PO DAILY Vitals/I & O Vital Sign - Last 24 Hours 04/07/17 04/07/17 04/07/17 04/08/17 15:00 19:59 20:10 03:05 Temp 98.3 98.1 97.6 98.3 98.1 97.6 Pulse 56 56 78 Resp 18 18 18 B/P (MAP) 120/57 (78) 109/36 (60) 154/77 (102) Pulse Ox 96 95 96 O2 Delivery Room Air Room Air Room Air Room Air 04/08/17 04/08/17 04/08/17 07:00 08:00 11:00 Temp 98.2 97.9 98.2 97.9 Pulse 74 64 Resp 17 B/P (MAP) 122/74 (90) 132/59 (83) Pulse Ox 96 95 O2 Delivery Room Air Room Air Room Air Intake and Output 04/08/17 04/08/17 04/09/17 15:00 23:00 07:00 Intake Total 120 ml Balance 120 ml ANA WOODSON MD Apr 08, 2017 12:36
[2017-04-08 15:38] VITALS: BP 144/72
[2017-04-08 19:05] VITALS: BP 112/65
[2017-04-08] MEDS: ATORVASTATIN CALCIUM 40 MG TABLET. PO SCH (21:26)
[2017-04-08] MEDS: INSULIN DETEMIR 300 UNITS/3 ML INSULN.PEN. SQ SCH (21:38)
[2017-04-08 23:23] VITALS: BP 158/79
[2017-04-09 03:00] VITALS: BP 180/45
[2017-04-09] MEDS ORDERED: ALBUTEROL SULFATE 2.5 MG/3 ML NEBU. NEB PRN (04:30)
[2017-04-09] MEDS: metroNIDAZOLE 500 MG TABLET NG SCH ×3 (06:09→21:33)
[2017-04-09 07:00] VITALS: BP 134/41
[2017-04-09] MEDS: IPRATRPIUM/ALBUTEROL 0.5/2.5MG 3 ML NEBU. NEB SCH ×2 (07:32→20:39)
[2017-04-09 08:40] LABS: BASO # 0.1 x10^3/uL (0.0-0.2); BASO % 1 % (0-3); EOS % 5 % (0-3); HEMATOCRIT 41.9 % (36.0-47.0); HEMOGLOBIN 13.6 g/dL (12.0-15.5); LYMPH # 2.7 x10^3/uL (1.0-4.8); LYMPH % 17 % (24-48); MEAN CORPUSCULAR HEMOGLOBIN 30 pg (25-35); MEAN CORPUSCULAR HGB CONC 32 g/dL (31-37); MEAN CORPUSCULAR VOLUME 92 fL (79-100); MONO % 6 % (0-9); NEUT % 70 % (31-73); PLATELET COUNT 360 x10^3/uL (140-400); RED BLOOD COUNT 4.54 x10^6/uL (3.50-5.40); RED CELL DISTRIBUTION WIDTH 12.9 % (11.5-14.5); WHITE BLOOD COUNT 15.5 x10^3/uL (4.0-11.0)
[2017-04-09] MEDS: ASPIRIN ENTERIC COATED 325 MG TABLET.DR. PO SCH (09:07)
[2017-04-09] MEDS: SENNOSIDES/DOCUSATE 8.6/50MG TABLET. PO SCH ×2 (09:07→20:23)
[2017-04-09] MEDS: DOCUSATE SODIUM 100 MG CAPSULE. PO SCH ×2 (09:07→20:22)
[2017-04-09] MEDS: INSULIN ASPART 300 UNITS/3 ML INSULN.PEN SQ SCH ×6 (09:21→17:00)
--- NOTE | 2017-04-09 09:44 | PDOC ---
PROGRESS NOTES Assessment Problems Medical Problems: (1) CVA (cerebral vascular accident) Status: Acute Right BG, goldsmith radiata and right hemisphere infarcts. 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 DM HTN HLD Obesity. UTI Plan Continue ASA 325 mg daily. Continue Lipitor 40 mg HS. Vascular Surgery consulted and no indication for surgical intervention. OT/PT Rehab, May be difficult due to component of depression and with a right hemispheric stroke, there may be anosognosia. Discussed with her family Objective Vital Signs Date Time Temp Pulse Resp B/P (MAP) Pulse Ox O2 Delivery O2 Flow Rate FiO2 04/09/17 07:33 97 Room Air 04/09/17 07:00 98.7 54 20 134/41 (72) 98.7 PHYSICAL EXAM Alert. Speaks Japanese PERRL. EOMI. CN: Right gaze preference, left field cut, left central facial weakness Muscle tone: Increased on left Muscle strength: 1/5 left hemiplegia DTR: 2+ Plantar reflex: Extensor on left Gait: not examined in bed. Sensory exam: no abnormal findings. No cerebellar signs elicited. Review of Relevant I have reviewed the following items tamie (where applicable) has been applied. Labs Laboratory Tests Test 04/07/17 11:42 04/07/17 17:01 04/07/17 21:24 04/08/17 04:35 Glucose (Fingerstick) 179 mg/dL (70-99) 149 mg/dL (70-99) 155 mg/dL (70-99) White Blood Count 15.5 x10^3/uL (4.0-11.0) Red Blood Count 4.62 x10^6/uL (3.50-5.40) Hemoglobin 13.8 g/dL (12.0-15.5) Hematocrit 42.1 % (36.0-47.0) Mean Corpuscular Volume 91 fL (79-100) Mean Corpuscular Hemoglobin 30 pg (25-35) Mean Corpuscular Hemoglobin Concent 33 g/dL (31-37) Red Cell Distribution Width 13.0 % (11.5-14.5) Platelet Count 358 x10^3/uL (140-400) Neutrophils (%) (Auto) 75 % (31-73) Lymphocytes (%) (Auto) 10 % (24-48) Monocytes (%) (Auto) 7 % (0-9) Eosinophils (%) (Auto) 8 % (0-3) Basophils (%) (Auto) 1 % (0-3) Neutrophils # (Auto) 11.5 x10^3uL (1.8-7.7) Lymphocytes # (Auto) 1.5 x10^3/uL (1.0-4.8) Monocytes # (Auto) 1.2 x10^3/uL (0.0-1.1) Eosinophils # (Auto) 1.2 x10^3/uL (0.0-0.7) Basophils # (Auto) 0.1 x10^3/uL (0.0-0.2) Test 04/08/17 07:35 04/08/17 11:33 04/08/17 17:03 04/08/17 20:39 Glucose (Fingerstick) 257 mg/dL (70-99) 146 mg/dL (70-99) 127 mg/dL (70-99) 148 mg/dL (70-99) Test 04/09/17 07:06 04/09/17 08:25 Glucose (Fingerstick) 155 mg/dL (70-99) White Blood Count 15.5 x10^3/uL (4.0-11.0) Red Blood Count 4.54 x10^6/uL (3.50-5.40) Hemoglobin 13.6 g/dL (12.0-15.5) Hematocrit 41.9 % (36.0-47.0) Mean Corpuscular Volume 92 fL (79-100) Mean Corpuscular Hemoglobin 30 pg (25-35) Mean Corpuscular Hemoglobin Concent 32 g/dL (31-37) Red Cell Distribution Width 12.9 % (11.5-14.5) Platelet Count 360 x10^3/uL (140-400) Neutrophils (%) (Auto) 70 % (31-73) Lymphocytes (%) (Auto) 17 % (24-48) Monocytes (%) (Auto) 6 % (0-9) Eosinophils (%) (Auto) 5 % (0-3) Basophils (%) (Auto) 1 % (0-3) Neutrophils # (Auto) 10.9 x10^3uL (1.8-7.7) Lymphocytes # (Auto) 2.7 x10^3/uL (1.0-4.8) Monocytes # (Auto) 1.0 x10^3/uL (0.0-1.1) Eosinophils # (Auto) 0.8 x10^3/uL (0.0-0.7) Basophils # (Auto) 0.1 x10^3/uL (0.0-0.2) Laboratory Tests Test 04/08/17 11:33 04/08/17 17:03 04/08/17 20:39 04/09/17 07:06 Glucose (Fingerstick) 146 mg/dL (70-99) 127 mg/dL (70-99) 148 mg/dL (70-99) 155 mg/dL (70-99) Test 04/09/17 08:25 White Blood Count 15.5 x10^3/uL (4.0-11.0) Red Blood Count 4.54 x10^6/uL (3.50-5.40) Hemoglobin 13.6 g/dL (12.0-15.5) Hematocrit 41.9 % (36.0-47.0) Mean Corpuscular Volume 92 fL (79-100) Mean Corpuscular Hemoglobin 30 pg (25-35) Mean Corpuscular Hemoglobin Concent 32 g/dL (31-37) Red Cell Distribution Width 12.9 % (11.5-14.5) Platelet Count 360 x10^3/uL (140-400) Neutrophils (%) (Auto) 70 % (31-73) Lymphocytes (%) (Auto) 17 % (24-48) Monocytes (%) (Auto) 6 % (0-9) Eosinophils (%) (Auto) 5 % (0-3) Basophils (%) (Auto) 1 % (0-3) Neutrophils # (Auto) 10.9 x10^3uL (1.8-7.7) Lymphocytes # (Auto) 2.7 x10^3/uL (1.0-4.8) Monocytes # (Auto) 1.0 x10^3/uL (0.0-1.1) Eosinophils # (Auto) 0.8 x10^3/uL (0.0-0.7) Basophils # (Auto) 0.1 x10^3/uL (0.0-0.2) Microbiology 9/2/17 Blood Culture - Final, Complete NO GROWTH AFTER 5 DAYS Medications Current Medications Insulin Aspart (NovoLOG) 0-5 UNITS TIDWMEALS SQ Last administered on 03/31/17 17:31; Start 03/24/17 at 17:00; Stop 04/01/17 at 09:20; Status DC Dextrose (Dextrose 50%-Water Syringe) 12.5 gm PRN Q15MIN PRN IV SEE COMMENTS; Start 03/24/17 at 12:30 Ceftriaxone Sodium 50 ml @ 100 mls/hr 1X ONCE IV Last administered on 13:33; Start 03/24/17 at 13:30; Stop 03/24/17 at 13:59; Status DC Ceftriaxone Sodium 1 gm/ Sodium Chloride 50 ml @ 100 mls/hr Q24H IV Last administered on 03/30/17 13:23; Start 03/25/17 at 14:00; Stop 03/31/17 at 14:28 ; Status DC Ondansetron HCl (Zofran) 4 mg PRN Q8HRS PRN IV NAUSEA/VOMITING; Start 03/24/17 at 13:30; Stop 03/25/17 at 13:29; Status DC Sodium Chloride 1,000 ml @ 125 mls/hr Q8H IV Last administered on 03/24/17 13 :37; Start 03/24/17 at 13:45; Stop 03/25/17 at 08:53; Status DC Aspirin (Aspirin) 300 mg 1X ONCE [place] Last administered on 03/24/17 13:45; Start 03/24/17 at 13:45; Stop 03/24/17 at 13:46; Status DC Sodium Chloride (Normal Saline Flush) 3 ml QSHIFT PRN IV AFTER MEDS AND BLOOD DRAWS; Start 03/24/17 at 13:45 Sodium Chloride 1,000 ml @ 100 mls/hr Q10H IV Last administered on 03/25/17 01:22; Start 03/24/17 at 14:00; Stop 03/25/17 at 08:53; Status DC Aspirin (Ecotrin) 325 mg DAILYWBKFT PO Last administered on 04/09/17 09:07; Start 03/25/17 at 08:00 Atorvastatin Calcium (Lipitor) 20 mg QHS PO Last administered on 04/03/17 21:25 ; Start 03/24/17 at 21:00; Stop 04/04/17 at 14:01; Status DC Labetalol HCl (Normodyne) 10 mg PRN Q10MIN PRN IV HYPERTENSION, SEE COMMENTS Last administered on 03/25/17 20:08; Start 03/24/17 at 13:45 Acetaminophen (Tylenol) 650 mg PRN Q6HRS PRN PO FEVER; Start 03/24/17 at 13:45 ; Stop 03/29/17 at 21:13; Status DC Acetaminophen (Acetaminophen Supp) 650 mg PRN Q6HRS PRN [place] FEVER Last administered on 03/28/17 21:42; Start 03/24/17 at 13:45; Stop 03/31/17 at 14:28 ; Status DC Enoxaparin Sodium (Lovenox 40mg Syringe) 40 mg Q24H SQ Last administered on 15:26; Start 03/24/17 at 15:00; Stop 03/29/17 at 08:44; Status DC Iohexol (Omnipaque 350 Mg/ml) 60 ml 1X ONCE IV Last administered on 03/24/17 16:25; Start 03/24/17 at 16:15; Stop 03/24/17 at 16:20; Status DC Info (Do NOT chart on this entry -- for MONITORING) 1 each PRN DAILY PRN MC SEE COMMENTS; Start 03/24/17 at 16:30; Stop 03/26/17 at 16:29; Status DC Ondansetron HCl (Zofran) 4 mg PRN Q6HRS PRN IV NAUSEA/VOMITING; Start 03/24/17 at 16:30 Amino Acids/ Glycerin/ Electrolytes 1,000 ml @ 80 mls/hr [id number] IV Last administered on 03/31/17 03:34; Start 03/25/17 at 09:30; Stop 03/31/17 at 12:13 ; Status DC Barium Sulfate (Varibar Thin Liquid Apple) 148 gm 1X ONCE PO Last administered on 03/26/17 13:30; Start 03/26/17 at 13:30; Stop 03/26/17 at 13:31 ; Status DC Ringer's Solution 1,000 ml @ 50 mls/hr Q20H IV ; Start 03/29/17 at 07:00; Stop 03/29/17 at 07:28; Status DC Diphenhydramine HCl (Benadryl) 25 mg PRN Q6HRS PRN IVP ITCHING Last administered on 04/07/17 21:23; Start 03/26/17 at 23:00 Potassium Chloride 50 ml @ 50 mls/hr Q1H IV ; Start 03/27/17 at 13:00; Stop at 14:59; Status UNV Potassium Chloride 100 ml @ 100 mls/hr Q1H IV Last administered on 03/27/17 19:45; Start 03/27/17 at 13:00; Stop 03/27/17 at 16:59; Status DC Ringer's Solution 1,000 ml @ 50 mls/hr Q20H IV ; Start 03/29/17 at 13:00; Stop 03/29/17 at 19:13; Status DC Midazolam HCl (Versed) 2 mg PRN 1X PRN IV PRIOR TO PROCEDURE; Start 03/29/17 at 12:15; Stop 03/29/17 at 15:49; Status DC Fentanyl Citrate (Fentanyl 2ml Vial) 25 mcg PRN Q5MIN PRN IV X 2 DOSES FOR PAIN ; Start 03/29/17 at 12:15; Stop 03/29/17 at 15:49; Status DC Fentanyl Citrate (Fentanyl 2ml Vial) 50 mcg PRN Q5MIN PRN IV X 2 DOSES FOR PAIN ; Start 03/29/17 at 12:15; Stop 03/29/17 at 15:49; Status DC Ringer's Solution 1,000 ml @ 125 mls/hr Q8H IV Last administered on 03/29/17 12:38; Start 03/29/17 at 12:07; Stop 03/29/17 at 17:31; Status DC Lidocaine HCl 2 ml 1X PRN PRN ID IV START; Start 03/29/17 at 12:15; Stop at 12:14; Status DC Propofol 20 ml @ As Directed STK-MED ONCE IV ; Start 03/29/17 at 12:29; Stop at 12:30; Status DC Morphine Sulfate 1 mg PRN Q2HR PRN IV PAIN Last administered on 04/06/17 23:39 ; Start 03/29/17 at 16:15 Morphine Sulfate 2 mg PRN Q2HR PRN IV PAIN Last administered on 04/03/17 02:41 ; Start 03/29/17 at 16:15; Stop 04/06/17 at 12:12; Status DC Acetaminophen (Tylenol) 650 mg PRN Q6HRS PRN PEG MILD PAIN / TEMP Last administered on 04/08/17 04:41; Start 03/29/17 at 21:15 Senna/Docusate Sodium (Senna Plus) 1 tab BID PO Last administered on 04/09/17 09:07; Start 03/31/17 at 21:00 Docusate Sodium (Colace) 100 mg BID PO Last administered on 04/09/17 09:07; Start 03/31/17 at 21:00 Magnesium Hydroxide (Milk Of Magnesia) 2,400 mg PRN Q12HR PRN PO CONSTIPATION; Start 03/31/17 at 12:15 Potassium Chloride (KCl Oral Soln) 40 meq 1X ONCE PEG Last administered on 11:30; Start 04/01/17 at 11:15; Stop 04/01/17 at 11:16; Status DC Insulin Aspart (NovoLOG) 0-9 UNITS TIDWMEALS SQ Last administered on 04/09/17 09:21; Start 04/01/17 at 12:00 Dextrose (Dextrose 50%-Water Syringe) 12.5 gm PRN Q15MIN PRN IV SEE COMMENTS; Start 04/01/17 at 11:15; Status UNV Insulin Detemir (Levemir) 10 units QHS SQ Last administered on 04/01/17 21:49 ; Start 04/01/17 at 21:00; Stop 04/02/17 at 08:18; Status DC Insulin Detemir (Levemir) 15 units QHS SQ Last administered on 04/02/17 21:21; Start 04/02/17 at 21:00; Stop 04/03/17 at 13:21; Status DC Insulin Aspart (NovoLOG) 5 units TIDAC SQ Last administered on 04/03/17 12:49; Start 04/02/17 at 11:30; Stop 04/03/17 at 13:21; Status DC Scopolamine (Transderm-Scop) 1 patch Q3DAYS TD Last administered on 04/08/17 07 :57; Start 04/02/17 at 10:00 Insulin Aspart (NovoLOG) 7 units TIDAC SQ Last administered on 04/07/17 09:01; Start 04/03/17 at 16:30; Stop 04/07/17 at 12:49; Status DC Insulin Detemir (Levemir) 20 units QHS SQ Last administered on 04/04/17 20:53; Start 04/03/17 at 21:00; Stop 04/05/17 at 08:47; Status DC Atorvastatin Calcium (Lipitor) 40 mg QHS PO Last administered on 04/08/17 21:26 ; Start 04/04/17 at 21:00 Insulin Detemir (Levemir) 22 units QHS SQ ; Start 04/05/17 at 21:00; Stop at 21:00; Status DC Insulin Detemir (Levemir) 25 units QHS SQ Last administered on 04/08/17 21:38; Start 04/05/17 at 21:00 Iohexol (Omnipaque 240 Mg/ml) 50 ml 1X ONCE PO Last administered on 04/06/17 11:45; Start 04/06/17 at 11:45; Stop 04/06/17 at 11:46; Status DC Iohexol (Omnipaque 300 Mg/ml) 60 ml 1X ONCE IV Last administered on 04/06/17 13:29; Start 04/06/17 at 11:45; Stop 04/06/17 at 11:46; Status DC Info (Do NOT chart on this entry -- for MONITORING) 1 each PRN DAILY PRN MC SEE COMMENTS; Start 04/06/17 at 11:45; Stop 04/08/17 at 11:44; Status DC Iohexol (Omnipaque 300 Mg/ml) 75 ml STK-MED ONCE .ROUTE ; Start 04/06/17 at 15:05 ; Stop 04/06/17 at 15:06; Status DC Iohexol (Omnipaque 240 Mg/ml) 50 ml STK-MED ONCE .ROUTE ; Start 04/06/17 at 15:06 ; Stop 04/06/17 at 15:07; Status DC Metronidazole 100 ml @ 100 mls/hr Q8HRS IV Last administered on 04/06/17 21:49 ; Start 04/06/17 at 22:00; Stop 04/07/17 at 06:02; Status DC Metronidazole (Flagyl) 500 mg Q8HRS NG Last administered on 04/09/17 06:09; Start 04/07/17 at 06:30 Insulin Aspart (NovoLOG) 8 units TIDAC SQ Last administered on 04/09/17 09:22; Start 04/07/17 at 16:30 Albuterol Sulfate (Ventolin Neb Soln) 2.5 mg PRN Q4HRS PRN NEB WHEEZING; Start 04/09/17 at 04:30 Albuterol/ Ipratropium (Duoneb) 3 ml RTBID NEB Last administered on 04/09/17 07 :32; Start 04/09/17 at 08:00 Active Scripts Active Transderm-Scop (Scopolamine) 1 Each Patch.td72 1 Patch TD Q3DAYS 30 Days Flagyl (Metronidazole) 500 Mg Tablet 500 Mg NG Q8HRS 14 Days Levemir Flextouch (Insulin Detemir) 100 Unit/1 Ml Insuln.pen 25 Units SQ QHS 30 Days Novolog Flexpen (Insulin Aspart) 100 Unit/1 Ml Insuln.pen 7 Units SQ TIDAC 30 Days Atorvastatin Calcium 40 Mg Tablet 40 Mg PO QHS 30 Days Aspirin Ec (Aspirin) 325 Mg Tablet. 325 Mg PO DAILYWBKFT 30 Days Reported Atorvastatin Calcium 40 Mg Tablet 1 Tab PO DAILY Vitals/I & O Vital Sign - Last 24 Hours 04/08/17 04/08/17 04/08/17 04/08/17 11:00 15:38 19:05 20:15 Temp 97.9 98.1 98.2 97.9 98.1 98.2 Pulse 64 65 62 Resp 17 18 18 B/P (MAP) 132/59 (83) 144/72 (96) 112/65 (81) Pulse Ox 95 95 94 O2 Delivery Room Air Room Air Room Air Room Air 04/08/17 04/09/17 04/09/17 04/09/17 23:23 03:00 07:00 07:33 Temp 98.5 98.2 98.7 98.5 98.2 98.7 Pulse 68 54 54 Resp 20 20 20 B/P (MAP) 158/79 (105) 180/45 (90) 134/41 (72) Pulse Ox 95 91 98 97 O2 Delivery Room Air Room Air Room Air Room Air ETIENNE TRAORE MD Apr 09, 2017 09:44
[2017-04-09 11:00] VITALS: BP 159/69
--- NOTE | 2017-04-09 13:57 | PDOC ---
PROGRESS NOTES Chief Complaint Chief Complaint CVA with left sided weakness hld htn Type 2 DM - uncontrolled Obesity Not compliant with meds leukocytosis, reactive likely constipation hypokalemia cdiff colitis neruogenic dysphagia with PEG plan: fu with gi, neuro on ASA, lipitor through PEG ON peg, DC ppn emil consulted, waiting for family meeting recheck UA, UCX since leukocytosis, repeat CXR still neg. check bcx neg, ID consulted SSI, add levemir 25u qhs, aspart 8u tid add scopolamine patch flagyl tid x7d, abd CT neg [place] in [place], not in [place]. cannot dc home since cannot set up HH, also cannot afford PEG feeding at home. i talked to golf course ranger, can go home with ensure bolus which can be bought from [employer], 5 cans daily , 300cal per can , also has coupon to use. UBALDO, renal case manager , EMIL fu, as per renal case manager and UBALDO, not safe to go home yet. should cont encourage go home on Wednesday. Medicaid in [place] pending. History of Present Illness History of Present Illness ROS: no chills, sob or chest pain. afebrile could move left lower ext, cannot move since Wednesday WBC flucuates at 14-15, no sign of infection, one time 18, diarrhea since 04/06, no BM 04/07, + cdiff, abd CT neg hyperglycemia better on ceftriaxone x6ds, dced. [facility] in [place], not in [place]. cannot dc home since cannot set up HH, also cannot afford PEG feeding at home Vitals Vitals Vital Signs Date Time Temp Pulse Resp B/P (MAP) Pulse Ox O2 Delivery O2 Flow Rate FiO2 04/09/17 11:00 98.1 59 18 159/69 (99) 95 Room Air 98.1 Physical Exam General: Alert, Cooperative, Other (arousable and following commands) Heart: Regular rate Lungs: Clear Abdomen: Soft, No tenderness Extremities: No clubbing, No cyanosis, No edema, Other (left arm paralyzed, left leg can move a little bit) Skin: No rashes, No breakdown Labs LABS Laboratory Tests Test 04/08/17 17:03 04/08/17 20:39 04/09/17 07:06 04/09/17 08:25 Glucose (Fingerstick) 127 mg/dL (70-99) 148 mg/dL (70-99) 155 mg/dL (70-99) White Blood Count 15.5 x10^3/uL (4.0-11.0) Red Blood Count 4.54 x10^6/uL (3.50-5.40) Hemoglobin 13.6 g/dL (12.0-15.5) Hematocrit 41.9 % (36.0-47.0) Mean Corpuscular Volume 92 fL (79-100) Mean Corpuscular Hemoglobin 30 pg (25-35) Mean Corpuscular Hemoglobin Concent 32 g/dL (31-37) Red Cell Distribution Width 12.9 % (11.5-14.5) Platelet Count 360 x10^3/uL (140-400) Neutrophils (%) (Auto) 70 % (31-73) Lymphocytes (%) (Auto) 17 % (24-48) Monocytes (%) (Auto) 6 % (0-9) Eosinophils (%) (Auto) 5 % (0-3) Basophils (%) (Auto) 1 % (0-3) Neutrophils # (Auto) 10.9 x10^3uL (1.8-7.7) Lymphocytes # (Auto) 2.7 x10^3/uL (1.0-4.8) Monocytes # (Auto) 1.0 x10^3/uL (0.0-1.1) Eosinophils # (Auto) 0.8 x10^3/uL (0.0-0.7) Basophils # (Auto) 0.1 x10^3/uL (0.0-0.2) Test 04/09/17 11:06 Glucose (Fingerstick) 132 mg/dL (70-99) Assessment and Plan Assessmemt and Plan Problems Medical Problems: (1) CVA (cerebral vascular accident) Status: Acute Problems: Comment Review of Relevant I have reviewed the following items tamie (where applicable) has been applied. Labs Laboratory Tests Test 04/07/17 17:01 04/07/17 21:24 04/08/17 04:35 04/08/17 07:35 Glucose (Fingerstick) 149 mg/dL (70-99) 155 mg/dL (70-99) 257 mg/dL (70-99) White Blood Count 15.5 x10^3/uL (4.0-11.0) Red Blood Count 4.62 x10^6/uL (3.50-5.40) Hemoglobin 13.8 g/dL (12.0-15.5) Hematocrit 42.1 % (36.0-47.0) Mean Corpuscular Volume 91 fL (79-100) Mean Corpuscular Hemoglobin 30 pg (25-35) Mean Corpuscular Hemoglobin Concent 33 g/dL (31-37) Red Cell Distribution Width 13.0 % (11.5-14.5) Platelet Count 358 x10^3/uL (140-400) Neutrophils (%) (Auto) 75 % (31-73) Lymphocytes (%) (Auto) 10 % (24-48) Monocytes (%) (Auto) 7 % (0-9) Eosinophils (%) (Auto) 8 % (0-3) Basophils (%) (Auto) 1 % (0-3) Neutrophils # (Auto) 11.5 x10^3uL (1.8-7.7) Lymphocytes # (Auto) 1.5 x10^3/uL (1.0-4.8) Monocytes # (Auto) 1.2 x10^3/uL (0.0-1.1) Eosinophils # (Auto) 1.2 x10^3/uL (0.0-0.7) Basophils # (Auto) 0.1 x10^3/uL (0.0-0.2) Test 04/08/17 11:33 04/08/17 17:03 04/08/17 20:39 04/09/17 07:06 Glucose (Fingerstick) 146 mg/dL (70-99) 127 mg/dL (70-99) 148 mg/dL (70-99) 155 mg/dL (70-99) Test 04/09/17 08:25 04/09/17 11:06 White Blood Count 15.5 x10^3/uL (4.0-11.0) Red Blood Count 4.54 x10^6/uL (3.50-5.40) Hemoglobin 13.6 g/dL (12.0-15.5) Hematocrit 41.9 % (36.0-47.0) Mean Corpuscular Volume 92 fL (79-100) Mean Corpuscular Hemoglobin 30 pg (25-35) Mean Corpuscular Hemoglobin Concent 32 g/dL (31-37) Red Cell Distribution Width 12.9 % (11.5-14.5) Platelet Count 360 x10^3/uL (140-400) Neutrophils (%) (Auto) 70 % (31-73) Lymphocytes (%) (Auto) 17 % (24-48) Monocytes (%) (Auto) 6 % (0-9) Eosinophils (%) (Auto) 5 % (0-3) Basophils (%) (Auto) 1 % (0-3) Neutrophils # (Auto) 10.9 x10^3uL (1.8-7.7) Lymphocytes # (Auto) 2.7 x10^3/uL (1.0-4.8) Monocytes # (Auto) 1.0 x10^3/uL (0.0-1.1) Eosinophils # (Auto) 0.8 x10^3/uL (0.0-0.7) Basophils # (Auto) 0.1 x10^3/uL (0.0-0.2) Glucose (Fingerstick) 132 mg/dL (70-99) Laboratory Tests Test 04/08/17 17:03 04/08/17 20:39 04/09/17 07:06 04/09/17 08:25 Glucose (Fingerstick) 127 mg/dL (70-99) 148 mg/dL (70-99) 155 mg/dL (70-99) White Blood Count 15.5 x10^3/uL (4.0-11.0) Red Blood Count 4.54 x10^6/uL (3.50-5.40) Hemoglobin 13.6 g/dL (12.0-15.5) Hematocrit 41.9 % (36.0-47.0) Mean Corpuscular Volume 92 fL (79-100) Mean Corpuscular Hemoglobin 30 pg (25-35) Mean Corpuscular Hemoglobin Concent 32 g/dL (31-37) Red Cell Distribution Width 12.9 % (11.5-14.5) Platelet Count 360 x10^3/uL (140-400) Neutrophils (%) (Auto) 70 % (31-73) Lymphocytes (%) (Auto) 17 % (24-48) Monocytes (%) (Auto) 6 % (0-9) Eosinophils (%) (Auto) 5 % (0-3) Basophils (%) (Auto) 1 % (0-3) Neutrophils # (Auto) 10.9 x10^3uL (1.8-7.7) Lymphocytes # (Auto) 2.7 x10^3/uL (1.0-4.8) Monocytes # (Auto) 1.0 x10^3/uL (0.0-1.1) Eosinophils # (Auto) 0.8 x10^3/uL (0.0-0.7) Basophils # (Auto) 0.1 x10^3/uL (0.0-0.2) Test 04/09/17 11:06 Glucose (Fingerstick) 132 mg/dL (70-99) Microbiology 04/03/17 Blood Culture - Final, Complete NO GROWTH AFTER 5 DAYS Medications Current Medications Insulin Aspart (NovoLOG) 0-5 UNITS TIDWMEALS SQ Last administered on 03/31/17 17:31; Start 03/24/17 at 17:00; Stop 04/01/17 at 09:20; Status DC Dextrose (Dextrose 50%-Water Syringe) 12.5 gm PRN Q15MIN PRN IV SEE COMMENTS; Start 03/24/17 at 12:30 Ceftriaxone Sodium 50 ml @ 100 mls/hr 1X ONCE IV Last administered on 13:33; Start 03/24/17 at 13:30; Stop 03/24/17 at 13:59; Status DC Ceftriaxone Sodium 1 gm/ Sodium Chloride 50 ml @ 100 mls/hr Q24H IV Last administered on 03/30/17 13:23; Start 03/25/17 at 14:00; Stop 03/31/17 at 14:28 ; Status DC Ondansetron HCl (Zofran) 4 mg PRN Q8HRS PRN IV NAUSEA/VOMITING; Start 03/24/17 at 13:30; Stop 03/25/17 at 13:29; Status DC Sodium Chloride 1,000 ml @ 125 mls/hr Q8H IV Last administered on 03/24/17 13 :37; Start 03/24/17 at 13:45; Stop 03/25/17 at 08:53; Status DC Aspirin (Aspirin) 300 mg 1X ONCE ID Last administered on 03/24/17 13:45; Start 03/24/17 at 13:45; Stop 03/24/17 at 13:46; Status DC Sodium Chloride (Normal Saline Flush) 3 ml QSHIFT PRN IV AFTER MEDS AND BLOOD DRAWS; Start 03/24/17 at 13:45 Sodium Chloride 1,000 ml @ 100 mls/hr Q10H IV Last administered on 03/25/17 01:22; Start 03/24/17 at 14:00; Stop 03/25/17 at 08:53; Status DC Aspirin (Ecotrin) 325 mg DAILYWBKFT PO Last administered on 04/09/17 09:07; Start 03/25/17 at 08:00 Atorvastatin Calcium (Lipitor) 20 mg QHS PO Last administered on 04/03/17 21:25 ; Start 03/24/17 at 21:00; Stop 04/04/17 at 14:01; Status DC Labetalol HCl (Normodyne) 10 mg PRN Q10MIN PRN IV HYPERTENSION, SEE COMMENTS Last administered on 03/25/17 20:08; Start 03/24/17 at 13:45 Acetaminophen (Tylenol) 650 mg PRN Q6HRS PRN PO FEVER; Start 03/24/17 at 13:45 ; Stop 03/29/17 at 21:13; Status DC Acetaminophen (Acetaminophen Supp) 650 mg PRN Q6HRS PRN ID FEVER Last administered on 03/28/17 21:42; Start 03/24/17 at 13:45; Stop 03/31/17 at 14:28 ; Status DC Enoxaparin Sodium (Lovenox 40mg Syringe) 40 mg Q24H SQ Last administered on 15:26; Start 03/24/17 at 15:00; Stop 03/29/17 at 08:44; Status DC Iohexol (Omnipaque 350 Mg/ml) 60 ml 1X ONCE IV Last administered on 03/24/17 16:25; Start 03/24/17 at 16:15; Stop 03/24/17 at 16:20; Status DC Info (Do NOT chart on this entry -- for MONITORING) 1 each PRN DAILY PRN MC SEE COMMENTS; Start 03/24/17 at 16:30; Stop 03/26/17 at 16:29; Status DC Ondansetron HCl (Zofran) 4 mg PRN Q6HRS PRN IV NAUSEA/VOMITING; Start 03/24/17 at 16:30 Amino Acids/ Glycerin/ Electrolytes 1,000 ml @ 80 mls/hr [id number] IV Last administered on 03/31/17 03:34; Start 03/25/17 at 09:30; Stop 03/31/17 at 12:13 ; Status DC Barium Sulfate (Varibar Thin Liquid Apple) 148 gm 1X ONCE PO Last administered on 03/26/17 13:30; Start 03/26/17 at 13:30; Stop 03/26/17 at 13:31 ; Status DC Ringer's Solution 1,000 ml @ 50 mls/hr Q20H IV ; Start 03/29/17 at 07:00; Stop 03/29/17 at 07:28; Status DC Diphenhydramine HCl (Benadryl) 25 mg PRN Q6HRS PRN IVP ITCHING Last administered on 04/07/17 21:23; Start 03/26/17 at 23:00 Potassium Chloride 50 ml @ 50 mls/hr Q1H IV ; Start 03/27/17 at 13:00; Stop at 14:59; Status UNV Potassium Chloride 100 ml @ 100 mls/hr Q1H IV Last administered on 03/27/17 19:45; Start 03/27/17 at 13:00; Stop 03/27/17 at 16:59; Status DC Ringer's Solution 1,000 ml @ 50 mls/hr Q20H IV ; Start 03/29/17 at 13:00; Stop 03/29/17 at 19:13; Status DC Midazolam HCl (Versed) 2 mg PRN 1X PRN IV PRIOR TO PROCEDURE; Start 03/29/17 at 12:15; Stop 03/29/17 at 15:49; Status DC Fentanyl Citrate (Fentanyl 2ml Vial) 25 mcg PRN Q5MIN PRN IV X 2 DOSES FOR PAIN ; Start 03/29/17 at 12:15; Stop 03/29/17 at 15:49; Status DC Fentanyl Citrate (Fentanyl 2ml Vial) 50 mcg PRN Q5MIN PRN IV X 2 DOSES FOR PAIN ; Start 03/29/17 at 12:15; Stop 03/29/17 at 15:49; Status DC Ringer's Solution 1,000 ml @ 125 mls/hr Q8H IV Last administered on 03/29/17 12:38; Start 03/29/17 at 12:07; Stop 03/29/17 at 17:31; Status DC Lidocaine HCl 2 ml 1X PRN PRN ID IV START; Start 03/29/17 at 12:15; Stop at 12:14; Status DC Propofol 20 ml @ As Directed STK-MED ONCE IV ; Start 03/29/17 at 12:29; Stop at 12:30; Status DC Morphine Sulfate 1 mg PRN Q2HR PRN IV PAIN Last administered on 04/06/17 23:39 ; Start 03/29/17 at 16:15 Morphine Sulfate 2 mg PRN Q2HR PRN IV PAIN Last administered on 04/03/17 02:41 ; Start 03/29/17 at 16:15; Stop 04/06/17 at 12:12; Status DC Acetaminophen (Tylenol) 650 mg PRN Q6HRS PRN PEG MILD PAIN / TEMP Last administered on 04/08/17 04:41; Start 03/29/17 at 21:15 Senna/Docusate Sodium (Senna Plus) 1 tab BID PO Last administered on 04/09/17 09:07; Start 03/31/17 at 21:00 Docusate Sodium (Colace) 100 mg BID PO Last administered on 04/09/17 09:07; Start 03/31/17 at 21:00 Magnesium Hydroxide (Milk Of Magnesia) 2,400 mg PRN Q12HR PRN PO CONSTIPATION; Start 03/31/17 at 12:15 Potassium Chloride (KCl Oral Soln) 40 meq 1X ONCE PEG Last administered on 11:30; Start 04/01/17 at 11:15; Stop 04/01/17 at 11:16; Status DC Insulin Aspart (NovoLOG) 0-9 UNITS TIDWMEALS SQ Last administered on 04/09/17 09:21; Start 04/01/17 at 12:00 Dextrose (Dextrose 50%-Water Syringe) 12.5 gm PRN Q15MIN PRN IV SEE COMMENTS; Start 04/01/17 at 11:15; Status UNV Insulin Detemir (Levemir) 10 units QHS SQ Last administered on 04/01/17 21:49 ; Start 04/01/17 at 21:00; Stop 04/02/17 at 08:18; Status DC Insulin Detemir (Levemir) 15 units QHS SQ Last administered on 04/02/17 21:21; Start 04/02/17 at 21:00; Stop 04/03/17 at 13:21; Status DC Insulin Aspart (NovoLOG) 5 units TIDAC SQ Last administered on 04/03/17 12:49; Start 04/02/17 at 11:30; Stop 04/03/17 at 13:21; Status DC Scopolamine (Transderm-Scop) 1 patch Q3DAYS TD Last administered on 04/08/17 07 :57; Start 04/02/17 at 10:00 Insulin Aspart (NovoLOG) 7 units TIDAC SQ Last administered on 04/07/17 09:01; Start 04/03/17 at 16:30; Stop 04/07/17 at 12:49; Status DC Insulin Detemir (Levemir) 20 units QHS SQ Last administered on 04/04/17 20:53; Start 04/03/17 at 21:00; Stop 04/05/17 at 08:47; Status DC Atorvastatin Calcium (Lipitor) 40 mg QHS PO Last administered on 04/08/17 21:26 ; Start 04/04/17 at 21:00 Insulin Detemir (Levemir) 22 units QHS SQ ; Start 04/05/17 at 21:00; Stop at 21:00; Status DC Insulin Detemir (Levemir) 25 units QHS SQ Last administered on 04/08/17 21:38; Start 04/05/17 at 21:00 Iohexol (Omnipaque 240 Mg/ml) 50 ml 1X ONCE PO Last administered on 04/06/17 11:45; Start 04/06/17 at 11:45; Stop 04/06/17 at 11:46; Status DC Iohexol (Omnipaque 300 Mg/ml) 60 ml 1X ONCE IV Last administered on 04/06/17 13:29; Start 04/06/17 at 11:45; Stop 04/06/17 at 11:46; Status DC Info (Do NOT chart on this entry -- for MONITORING) 1 each PRN DAILY PRN MC SEE COMMENTS; Start 04/06/17 at 11:45; Stop 04/08/17 at 11:44; Status DC Iohexol (Omnipaque 300 Mg/ml) 75 ml STK-MED ONCE .ROUTE ; Start 04/06/17 at 15:05 ; Stop 04/06/17 at 15:06; Status DC Iohexol (Omnipaque 240 Mg/ml) 50 ml STK-MED ONCE .ROUTE ; Start 04/06/17 at 15:06 ; Stop 04/06/17 at 15:07; Status DC Metronidazole 100 ml @ 100 mls/hr Q8HRS IV Last administered on 04/06/17 21:49 ; Start 04/06/17 at 22:00; Stop 04/07/17 at 06:02; Status DC Metronidazole (Flagyl) 500 mg Q8HRS NG Last administered on 04/09/17 06:09; Start 04/07/17 at 06:30 Insulin Aspart (NovoLOG) 8 units TIDAC SQ Last administered on 04/09/17 13:04; Start 04/07/17 at 16:30 Albuterol Sulfate (Ventolin Neb Soln) 2.5 mg PRN Q4HRS PRN NEB WHEEZING; Start 04/09/17 at 04:30 Albuterol/ Ipratropium (Duoneb) 3 ml RTBID NEB Last administered on 04/09/17 07 :32; Start 04/09/17 at 08:00 Active Scripts Active Transderm-Scop (Scopolamine) 1 Each Patch.td72 1 Patch TD Q3DAYS 30 Days Flagyl (Metronidazole) 500 Mg Tablet 500 Mg NG Q8HRS 14 Days Levemir Flextouch (Insulin Detemir) 100 Unit/1 Ml Insuln.pen 25 Units SQ QHS 30 Days Novolog Flexpen (Insulin Aspart) 100 Unit/1 Ml Insuln.pen 7 Units SQ TIDAC 30 Days Atorvastatin Calcium 40 Mg Tablet 40 Mg PO QHS 30 Days Aspirin Ec (Aspirin) 325 Mg Tablet.dr 325 Mg PO DAILYWBKFT 30 Days Reported Atorvastatin Calcium 40 Mg Tablet 1 Tab PO DAILY Vitals/I & O Vital Sign - Last 24 Hours 04/08/17 04/08/17 04/08/17 04/08/17 15:38 19:05 20:15 23:23 Temp 98.1 98.2 98.5 98.1 98.2 98.5 Pulse 65 62 68 Resp 18 18 20 B/P (MAP) 144/72 (96) 112/65 (81) 158/79 (105) Pulse Ox 95 94 95 O2 Delivery Room Air Room Air Room Air Room Air 04/09/17 04/09/17 04/09/17 04/09/17 03:00 07:00 07:33 11:00 Temp 98.2 98.7 98.1 98.2 98.7 98.1 Pulse 54 54 59 Resp 20 20 18 B/P (MAP) 180/45 (90) 134/41 (72) 159/69 (99) Pulse Ox 91 98 97 95 O2 Delivery Room Air Room Air Room Air Room Air ANA WOODSON MD Apr 09, 2017 13:57
[2017-04-09 15:00] VITALS: BP 116/80
[2017-04-09 19:47] VITALS: BP 111/50
[2017-04-09] MEDS: ATORVASTATIN CALCIUM 40 MG TABLET. PO SCH (20:22)
[2017-04-09] MEDS: ACETAMINOPHEN 650 MG/20.3 ML SOLUTION. PEG PRN (20:23)
[2017-04-09] MEDS: INSULIN DETEMIR 300 UNITS/3 ML INSULN.PEN. SQ SCH (20:24)
[2017-04-09 23:50] VITALS: BP 110/52
[2017-04-10 03:15] VITALS: BP 117/78
[2017-04-10] MEDS: metroNIDAZOLE 500 MG TABLET NG SCH ×3 (05:42→20:45)
[2017-04-10 07:14] VITALS: BP 170/78
[2017-04-10] MEDS: IPRATRPIUM/ALBUTEROL 0.5/2.5MG 3 ML NEBU. NEB SCH ×2 (08:14→20:00)
[2017-04-10] MEDS: INSULIN ASPART 300 UNITS/3 ML INSULN.PEN SQ SCH ×6 (08:58→16:43)
[2017-04-10] MEDS: ASPIRIN ENTERIC COATED 325 MG TABLET.DR. PO SCH (09:02)
[2017-04-10] MEDS: SENNOSIDES/DOCUSATE 8.6/50MG TABLET. PO SCH ×2 (09:02→20:45)
[2017-04-10] MEDS: DOCUSATE SODIUM 100 MG CAPSULE. PO SCH ×2 (09:02→20:45)
[2017-04-10 09:25] LABS: BASO # 0.1 x10^3/uL (0.0-0.2); BASO % 1 % (0-3); EOS % 5 % (0-3); HEMATOCRIT 41.6 % (36.0-47.0); HEMOGLOBIN 13.5 g/dL (12.0-15.5); LYMPH # 2.2 x10^3/uL (1.0-4.8); LYMPH % 14 % (24-48); MEAN CORPUSCULAR HEMOGLOBIN 30 pg (25-35); MEAN CORPUSCULAR HGB CONC 32 g/dL (31-37); MEAN CORPUSCULAR VOLUME 92 fL (79-100); MONO % 6 % (0-9); NEUT % 74 % (31-73); PLATELET COUNT 366 x10^3/uL (140-400); RED BLOOD COUNT 4.51 x10^6/uL (3.50-5.40); RED CELL DISTRIBUTION WIDTH 12.8 % (11.5-14.5); WHITE BLOOD COUNT 15.8 x10^3/uL (4.0-11.0)
[2017-04-10 10:35] VITALS: BP 156/72
[2017-04-10 14:51] VITALS: BP 158/64
--- NOTE | 2017-04-10 15:07 | PDOC ---
PROGRESS NOTES Chief Complaint Chief Complaint CVA with left sided weakness hld htn Type 2 DM - uncontrolled Obesity Not compliant with meds leukocytosis, reactive likely constipation hypokalemia cdiff colitis neruogenic dysphagia with PEG History of Present Illness History of Present Illness wound care team for excoriation from puritis, fu with gi, neuro on ASA, lipitor through PEG ON peg, DC ppn pat consulted, waiting for family meeting recheck UA, UCX since leukocytosis, repeat CXR still neg. check bcx neg, SSI, add levemir 25u qhs, aspart 8u tid contv scopolamine patch insurance issues SW following Vitals Vitals Vital Signs Date Time Temp Pulse Resp B/P (MAP) Pulse Ox O2 Delivery O2 Flow Rate FiO2 04/10/17 10:35 97.6 64 16 156/72 (100) 97 Room Air 97.6 Physical Exam General: Alert, Cooperative, Other (arousable and following commands) Heart: Regular rate Lungs: Clear Abdomen: Soft, No tenderness Extremities: No clubbing, No cyanosis, No edema, Other (left arm paralyzed, left leg can move a little bit) Skin: No rashes, No breakdown Labs LABS Laboratory Tests Test 04/09/17 17:04 04/09/17 20:21 04/10/17 07:31 04/10/17 08:10 Glucose (Fingerstick) 73 mg/dL (70-99) 132 mg/dL (70-99) 154 mg/dL (70-99) White Blood Count 15.8 x10^3/uL (4.0-11.0) Red Blood Count 4.51 x10^6/uL (3.50-5.40) Hemoglobin 13.5 g/dL (12.0-15.5) Hematocrit 41.6 % (36.0-47.0) Mean Corpuscular Volume 92 fL (79-100) Mean Corpuscular Hemoglobin 30 pg (25-35) Mean Corpuscular Hemoglobin Concent 32 g/dL (31-37) Red Cell Distribution Width 12.8 % (11.5-14.5) Platelet Count 366 x10^3/uL (140-400) Neutrophils (%) (Auto) 74 % (31-73) Lymphocytes (%) (Auto) 14 % (24-48) Monocytes (%) (Auto) 6 % (0-9) Eosinophils (%) (Auto) 5 % (0-3) Basophils (%) (Auto) 1 % (0-3) Neutrophils # (Auto) 11.6 x10^3uL (1.8-7.7) Lymphocytes # (Auto) 2.2 x10^3/uL (1.0-4.8) Monocytes # (Auto) 1.0 x10^3/uL (0.0-1.1) Eosinophils # (Auto) 0.8 x10^3/uL (0.0-0.7) Basophils # (Auto) 0.1 x10^3/uL (0.0-0.2) Test 04/10/17 11:54 Glucose (Fingerstick) 106 mg/dL (70-99) Review of Systems Review of Systems ROS: no chills, sob or chest pain. afebrile could move left lower ext, Assessment and Plan Assessmemt and Plan Insurance in [place], not in [place]. cannot dc home since cannot set up HH, also cannot afford PEG feeding at home Problems Medical Problems: (1) CVA (cerebral vascular accident) Status: Acute Problems: Comment Review of Relevant I have reviewed the following items tamie (where applicable) has been applied. Labs Laboratory Tests Test 04/08/17 17:03 04/08/17 20:39 04/09/17 07:06 04/09/17 08:25 Glucose (Fingerstick) 127 mg/dL (70-99) 148 mg/dL (70-99) 155 mg/dL (70-99) White Blood Count 15.5 x10^3/uL (4.0-11.0) Red Blood Count 4.54 x10^6/uL (3.50-5.40) Hemoglobin 13.6 g/dL (12.0-15.5) Hematocrit 41.9 % (36.0-47.0) Mean Corpuscular Volume 92 fL (79-100) Mean Corpuscular Hemoglobin 30 pg (25-35) Mean Corpuscular Hemoglobin Concent 32 g/dL (31-37) Red Cell Distribution Width 12.9 % (11.5-14.5) Platelet Count 360 x10^3/uL (140-400) Neutrophils (%) (Auto) 70 % (31-73) Lymphocytes (%) (Auto) 17 % (24-48) Monocytes (%) (Auto) 6 % (0-9) Eosinophils (%) (Auto) 5 % (0-3) Basophils (%) (Auto) 1 % (0-3) Neutrophils # (Auto) 10.9 x10^3uL (1.8-7.7) Lymphocytes # (Auto) 2.7 x10^3/uL (1.0-4.8) Monocytes # (Auto) 1.0 x10^3/uL (0.0-1.1) Eosinophils # (Auto) 0.8 x10^3/uL (0.0-0.7) Basophils # (Auto) 0.1 x10^3/uL (0.0-0.2) Test 04/09/17 11:06 04/09/17 17:04 04/09/17 20:21 04/10/17 07:31 Glucose (Fingerstick) 132 mg/dL (70-99) 73 mg/dL (70-99) 132 mg/dL (70-99) 154 mg/dL (70-99) Test 04/10/17 08:10 04/10/17 11:54 White Blood Count 15.8 x10^3/uL (4.0-11.0) Red Blood Count 4.51 x10^6/uL (3.50-5.40) Hemoglobin 13.5 g/dL (12.0-15.5) Hematocrit 41.6 % (36.0-47.0) Mean Corpuscular Volume 92 fL (79-100) Mean Corpuscular Hemoglobin 30 pg (25-35) Mean Corpuscular Hemoglobin Concent 32 g/dL (31-37) Red Cell Distribution Width 12.8 % (11.5-14.5) Platelet Count 366 x10^3/uL (140-400) Neutrophils (%) (Auto) 74 % (31-73) Lymphocytes (%) (Auto) 14 % (24-48) Monocytes (%) (Auto) 6 % (0-9) Eosinophils (%) (Auto) 5 % (0-3) Basophils (%) (Auto) 1 % (0-3) Neutrophils # (Auto) 11.6 x10^3uL (1.8-7.7) Lymphocytes # (Auto) 2.2 x10^3/uL (1.0-4.8) Monocytes # (Auto) 1.0 x10^3/uL (0.0-1.1) Eosinophils # (Auto) 0.8 x10^3/uL (0.0-0.7) Basophils # (Auto) 0.1 x10^3/uL (0.0-0.2) Glucose (Fingerstick) 106 mg/dL (70-99) Laboratory Tests Test 04/09/17 17:04 04/09/17 20:21 04/10/17 07:31 04/10/17 08:10 Glucose (Fingerstick) 73 mg/dL (70-99) 132 mg/dL (70-99) 154 mg/dL (70-99) White Blood Count 15.8 x10^3/uL (4.0-11.0) Red Blood Count 4.51 x10^6/uL (3.50-5.40) Hemoglobin 13.5 g/dL (12.0-15.5) Hematocrit 41.6 % (36.0-47.0) Mean Corpuscular Volume 92 fL (79-100) Mean Corpuscular Hemoglobin 30 pg (25-35) Mean Corpuscular Hemoglobin Concent 32 g/dL (31-37) Red Cell Distribution Width 12.8 % (11.5-14.5) Platelet Count 366 x10^3/uL (140-400) Neutrophils (%) (Auto) 74 % (31-73) Lymphocytes (%) (Auto) 14 % (24-48) Monocytes (%) (Auto) 6 % (0-9) Eosinophils (%) (Auto) 5 % (0-3) Basophils (%) (Auto) 1 % (0-3) Neutrophils # (Auto) 11.6 x10^3uL (1.8-7.7) Lymphocytes # (Auto) 2.2 x10^3/uL (1.0-4.8) Monocytes # (Auto) 1.0 x10^3/uL (0.0-1.1) Eosinophils # (Auto) 0.8 x10^3/uL (0.0-0.7) Basophils # (Auto) 0.1 x10^3/uL (0.0-0.2) Test 04/10/17 11:54 Glucose (Fingerstick) 106 mg/dL (70-99) Microbiology 04/03/17 Blood Culture - Final, Complete NO GROWTH AFTER 5 DAYS Medications Current Medications Insulin Aspart (NovoLOG) 0-5 UNITS TIDWMEALS SQ Last administered on 03/31/17 17:31; Start 03/24/17 at 17:00; Stop 04/01/17 at 09:20; Status DC Dextrose (Dextrose 50%-Water Syringe) 12.5 gm PRN Q15MIN PRN IV SEE COMMENTS; Start 03/24/17 at 12:30 Ceftriaxone Sodium 50 ml @ 100 mls/hr 1X ONCE IV Last administered on 13:33; Start 03/24/17 at 13:30; Stop 03/24/17 at 13:59; Status DC Ceftriaxone Sodium 1 gm/ Sodium Chloride 50 ml @ 100 mls/hr Q24H IV Last administered on 03/30/17 13:23; Start 03/25/17 at 14:00; Stop 03/31/17 at 14:28 ; Status DC Ondansetron HCl (Zofran) 4 mg PRN Q8HRS PRN IV NAUSEA/VOMITING; Start 03/24/17 at 13:30; Stop 03/25/17 at 13:29; Status DC Sodium Chloride 1,000 ml @ 125 mls/hr Q8H IV Last administered on 03/24/17 13 :37; Start 03/24/17 at 13:45; Stop 03/25/17 at 08:53; Status DC Aspirin (Aspirin) 300 mg 1X ONCE [place] Last administered on 03/24/17 13:45; Start 03/24/17 at 13:45; Stop 03/24/17 at 13:46; Status DC Sodium Chloride (Normal Saline Flush) 3 ml QSHIFT PRN IV AFTER MEDS AND BLOOD DRAWS; Start 03/24/17 at 13:45 Sodium Chloride 1,000 ml @ 100 mls/hr Q10H IV Last administered on 03/25/17 01:22; Start 03/24/17 at 14:00; Stop 03/25/17 at 08:53; Status DC Aspirin (Ecotrin) 325 mg DAILYWBKFT PO Last administered on 04/10/17 09:02; Start 03/25/17 at 08:00 Atorvastatin Calcium (Lipitor) 20 mg QHS PO Last administered on 04/03/17 21:25 ; Start 03/24/17 at 21:00; Stop 04/04/17 at 14:01; Status DC Labetalol HCl (Normodyne) 10 mg PRN Q10MIN PRN IV HYPERTENSION, SEE COMMENTS Last administered on 03/25/17 20:08; Start 03/24/17 at 13:45 Acetaminophen (Tylenol) 650 mg PRN Q6HRS PRN PO FEVER; Start 03/24/17 at 13:45 ; Stop 03/29/17 at 21:13; Status DC Acetaminophen (Acetaminophen Supp) 650 mg PRN Q6HRS PRN [place] FEVER Last administered on 03/28/17 21:42; Start 03/24/17 at 13:45; Stop 03/31/17 at 14:28 ; Status DC Enoxaparin Sodium (Lovenox 40mg Syringe) 40 mg Q24H SQ Last administered on 15:26; Start 03/24/17 at 15:00; Stop 03/29/17 at 08:44; Status DC Iohexol (Omnipaque 350 Mg/ml) 60 ml 1X ONCE IV Last administered on 03/24/17 16:25; Start 03/24/17 at 16:15; Stop 03/24/17 at 16:20; Status DC Info (Do NOT chart on this entry -- for MONITORING) 1 each PRN DAILY PRN MC SEE COMMENTS; Start 03/24/17 at 16:30; Stop 03/26/17 at 16:29; Status DC Ondansetron HCl (Zofran) 4 mg PRN Q6HRS PRN IV NAUSEA/VOMITING; Start 03/24/17 at 16:30 Amino Acids/ Glycerin/ Electrolytes 1,000 ml @ 80 mls/hr [id number] IV Last administered on 03/31/17 03:34; Start 03/25/17 at 09:30; Stop 03/31/17 at 12:13 ; Status DC Barium Sulfate (Varibar Thin Liquid Apple) 148 gm 1X ONCE PO Last administered on 03/26/17 13:30; Start 03/26/17 at 13:30; Stop 03/26/17 at 13:31 ; Status DC Ringer's Solution 1,000 ml @ 50 mls/hr Q20H IV ; Start 03/29/17 at 07:00; Stop 03/29/17 at 07:28; Status DC Diphenhydramine HCl (Benadryl) 25 mg PRN Q6HRS PRN IVP ITCHING Last administered on 04/07/17 21:23; Start 03/26/17 at 23:00 Potassium Chloride 50 ml @ 50 mls/hr Q1H IV ; Start 03/27/17 at 13:00; Stop at 14:59; Status UNV Potassium Chloride 100 ml @ 100 mls/hr Q1H IV Last administered on 03/27/17 19:45; Start 03/27/17 at 13:00; Stop 03/27/17 at 16:59; Status DC Ringer's Solution 1,000 ml @ 50 mls/hr Q20H IV ; Start 03/29/17 at 13:00; Stop 03/29/17 at 19:13; Status DC Midazolam HCl (Versed) 2 mg PRN 1X PRN IV PRIOR TO PROCEDURE; Start 03/29/17 at 12:15; Stop 03/29/17 at 15:49; Status DC Fentanyl Citrate (Fentanyl 2ml Vial) 25 mcg PRN Q5MIN PRN IV X 2 DOSES FOR PAIN ; Start 03/29/17 at 12:15; Stop 03/29/17 at 15:49; Status DC Fentanyl Citrate (Fentanyl 2ml Vial) 50 mcg PRN Q5MIN PRN IV X 2 DOSES FOR PAIN ; Start 03/29/17 at 12:15; Stop 03/29/17 at 15:49; Status DC Ringer's Solution 1,000 ml @ 125 mls/hr Q8H IV Last administered on 03/29/17 12:38; Start 03/29/17 at 12:07; Stop 03/29/17 at 17:31; Status DC Lidocaine HCl 2 ml 1X PRN PRN ID IV START; Start 03/29/17 at 12:15; Stop at 12:14; Status DC Propofol 20 ml @ As Directed STK-MED ONCE IV ; Start 03/29/17 at 12:29; Stop at 12:30; Status DC Morphine Sulfate 1 mg PRN Q2HR PRN IV PAIN Last administered on 04/06/17 23:39 ; Start 03/29/17 at 16:15 Morphine Sulfate 2 mg PRN Q2HR PRN IV PAIN Last administered on 04/03/17 02:41 ; Start 03/29/17 at 16:15; Stop 04/06/17 at 12:12; Status DC Acetaminophen (Tylenol) 650 mg PRN Q6HRS PRN PEG MILD PAIN / TEMP Last administered on 04/09/17 20:23; Start 03/29/17 at 21:15 Senna/Docusate Sodium (Senna Plus) 1 tab BID PO Last administered on 04/10/17 09:02; Start 03/31/17 at 21:00 Docusate Sodium (Colace) 100 mg BID PO Last administered on 04/10/17 09:02; Start 03/31/17 at 21:00 Magnesium Hydroxide (Milk Of Magnesia) 2,400 mg PRN Q12HR PRN PO CONSTIPATION; Start 03/31/17 at 12:15 Potassium Chloride (KCl Oral Soln) 40 meq 1X ONCE PEG Last administered on 11:30; Start 04/01/17 at 11:15; Stop 04/01/17 at 11:16; Status DC Insulin Aspart (NovoLOG) 0-9 UNITS TIDWMEALS SQ Last administered on 04/09/17 09:21; Start 04/01/17 at 12:00 Dextrose (Dextrose 50%-Water Syringe) 12.5 gm PRN Q15MIN PRN IV SEE COMMENTS; Start 04/01/17 at 11:15; Status UNV Insulin Detemir (Levemir) 10 units QHS SQ Last administered on 04/01/17 21:49 ; Start 04/01/17 at 21:00; Stop 04/02/17 at 08:18; Status DC Insulin Detemir (Levemir) 15 units QHS SQ Last administered on 04/02/17 21:21; Start 04/02/17 at 21:00; Stop 04/03/17 at 13:21; Status DC Insulin Aspart (NovoLOG) 5 units TIDAC SQ Last administered on 04/03/17 12:49; Start 04/02/17 at 11:30; Stop 04/03/17 at 13:21; Status DC Scopolamine (Transderm-Scop) 1 patch Q3DAYS TD Last administered on 04/08/17 07 :57; Start 04/02/17 at 10:00 Insulin Aspart (NovoLOG) 7 units TIDAC SQ Last administered on 04/07/17 09:01; Start 04/03/17 at 16:30; Stop 04/07/17 at 12:49; Status DC Insulin Detemir (Levemir) 20 units QHS SQ Last administered on 04/04/17 20:53; Start 04/03/17 at 21:00; Stop 04/05/17 at 08:47; Status DC Atorvastatin Calcium (Lipitor) 40 mg QHS PO Last administered on 04/09/17 20:22 ; Start 04/04/17 at 21:00 Insulin Detemir (Levemir) 22 units QHS SQ ; Start 04/05/17 at 21:00; Stop at 21:00; Status DC Insulin Detemir (Levemir) 25 units QHS SQ Last administered on 04/09/17 20:24; Start 04/05/17 at 21:00 Iohexol (Omnipaque 240 Mg/ml) 50 ml 1X ONCE PO Last administered on 04/06/17 11:45; Start 04/06/17 at 11:45; Stop 04/06/17 at 11:46; Status DC Iohexol (Omnipaque 300 Mg/ml) 60 ml 1X ONCE IV Last administered on 04/06/17 13:29; Start 04/06/17 at 11:45; Stop 04/06/17 at 11:46; Status DC Info (Do NOT chart on this entry -- for MONITORING) 1 each PRN DAILY PRN MC SEE COMMENTS; Start 04/06/17 at 11:45; Stop 04/08/17 at 11:44; Status DC Iohexol (Omnipaque 300 Mg/ml) 75 ml STK-MED ONCE .ROUTE ; Start 04/06/17 at 15:05 ; Stop 04/06/17 at 15:06; Status DC Iohexol (Omnipaque 240 Mg/ml) 50 ml STK-MED ONCE .ROUTE ; Start 04/06/17 at 15:06 ; Stop 04/06/17 at 15:07; Status DC Metronidazole 100 ml @ 100 mls/hr Q8HRS IV Last administered on 04/06/17 21:49 ; Start 04/06/17 at 22:00; Stop 04/07/17 at 06:02; Status DC Metronidazole (Flagyl) 500 mg Q8HRS NG Last administered on 04/10/17 05:42; Start 04/07/17 at 06:30 Insulin Aspart (NovoLOG) 8 units TIDAC SQ Last administered on 04/10/17 09:24; Start 04/07/17 at 16:30 Albuterol Sulfate (Ventolin Neb Soln) 2.5 mg PRN Q4HRS PRN NEB WHEEZING; Start 04/09/17 at 04:30 Albuterol/ Ipratropium (Duoneb) 3 ml RTBID NEB Last administered on 04/10/17 08 :14; Start 04/09/17 at 08:00 Zinc Acetate/ Diphenhydramine (Benadryl Topical) 1 jonn TID TP ; Start 04/10/17 at 15:00 Active Scripts Active Transderm-Scop (Scopolamine) 1 Each Patch.td72 1 Patch TD Q3DAYS 30 Days Flagyl (Metronidazole) 500 Mg Tablet 500 Mg NG Q8HRS 14 Days Levemir Flextouch (Insulin Detemir) 100 Unit/1 Ml Insuln.pen 25 Units SQ QHS 30 Days Novolog Flexpen (Insulin Aspart) 100 Unit/1 Ml Insuln.pen 7 Units SQ TIDAC 30 Days Atorvastatin Calcium 40 Mg Tablet 40 Mg PO QHS 30 Days Aspirin Ec (Aspirin) 325 Mg Tablet. 325 Mg PO DAILYWBKFT 30 Days Reported Atorvastatin Calcium 40 Mg Tablet 1 Tab PO DAILY Vitals/I & O Vital Sign - Last 24 Hours 04/09/17 04/09/17 04/09/17 04/09/17 19:47 20:30 20:39 23:50 Temp 97.6 97.7 97.6 97.7 Pulse 68 57 Resp 18 16 B/P (MAP) 111/50 (70) 110/52 (71) Pulse Ox 96 93 94 O2 Delivery Room Air Room Air Room Air Room Air 04/10/17 04/10/17 04/10/17 04/10/17 03:15 07:14 08:00 08:15 Temp 97.8 97.6 97.8 97.6 Pulse 52 52 Resp 16 19 B/P (MAP) 117/78 (91) 170/78 (108) Pulse Ox 94 96 98 O2 Delivery Room Air Room Air Room Air Room Air 04/10/17 10:35 Temp 97.6 97.6 Pulse 64 Resp 16 B/P (MAP) 156/72 (100) Pulse Ox 97 O2 Delivery Room Air Intake and Output 04/10/17 04/10/17 04/11/17 15:00 23:00 07:00 Intake Total 120 ml Output Total 0 ml Balance 120 ml IZABELA CROCKETT MD Apr 10, 2017 15:06
[2017-04-10] MEDS: DIPHENHYDRAMINE/ZINC ACETATE 2%/0.1% TOPICAL CREAM 28GM TUBE. TP SCH ×2 (17:16→23:31)
[2017-04-10 19:40] VITALS: BP 184/87
[2017-04-10] MEDS: ATORVASTATIN CALCIUM 40 MG TABLET. PO SCH (20:45)
[2017-04-10] MEDS: ACETAMINOPHEN 650 MG/20.3 ML SOLUTION. PEG PRN (20:45)
[2017-04-10] MEDS: IV DEXTROSE 5 %-0.45 % NACL 1,000 ML IV SCH (23:33)
[2017-04-10 23:48] VITALS: BP 167/86
[2017-04-11] MEDS: INSULIN DETEMIR 300 UNITS/3 ML INSULN.PEN. SQ SCH ×2 (00:17→20:56)
[2017-04-11 04:16] VITALS: BP 152/68
[2017-04-11] MEDS: metroNIDAZOLE 500 MG TABLET NG SCH ×3 (05:03→21:43)
[2017-04-11 07:05] VITALS: BP 150/70
[2017-04-11] MEDS: INSULIN ASPART 300 UNITS/3 ML INSULN.PEN SQ SCH ×6 (08:00→16:50)
[2017-04-11] MEDS: IPRATRPIUM/ALBUTEROL 0.5/2.5MG 3 ML NEBU. NEB SCH ×2 (08:13→19:29)
[2017-04-11] MEDS: DIPHENHYDRAMINE/ZINC ACETATE 2%/0.1% TOPICAL CREAM 28GM TUBE. TP SCH ×3 (09:00→20:46)
[2017-04-11 09:46] LABS: BASO # 0.1 x10^3/uL (0.0-0.2); BASO % 1 % (0-3); EOS % 3 % (0-3); HEMATOCRIT 40.7 % (36.0-47.0); HEMOGLOBIN 13.5 g/dL (12.0-15.5); LYMPH # 2.3 x10^3/uL (1.0-4.8); LYMPH % 17 % (24-48); MEAN CORPUSCULAR HEMOGLOBIN 30 pg (25-35); MEAN CORPUSCULAR HGB CONC 33 g/dL (31-37); MEAN CORPUSCULAR VOLUME 91 fL (79-100); MONO % 6 % (0-9); NEUT % 74 % (31-73); PLATELET COUNT 402 x10^3/uL (140-400); RED BLOOD COUNT 4.46 x10^6/uL (3.50-5.40); RED CELL DISTRIBUTION WIDTH 12.6 % (11.5-14.5); WHITE BLOOD COUNT 13.7 x10^3/uL (4.0-11.0)
[2017-04-11] MEDS: ASPIRIN ENTERIC COATED 325 MG TABLET.DR. PO SCH (09:46)
[2017-04-11] MEDS: DOCUSATE SODIUM 100 MG CAPSULE. PO SCH ×2 (09:46→20:32)
[2017-04-11] MEDS: ACETAMINOPHEN 650 MG/20.3 ML SOLUTION. PEG PRN (09:46)
[2017-04-11] MEDS: SENNOSIDES/DOCUSATE 8.6/50MG TABLET. PO SCH ×2 (09:47→20:32)
[2017-04-11] MEDS: SCOPOLAMINE 1.5MG PATCH. TD SCH (09:47)
[2017-04-11 10:51] VITALS: BP 174/71
[2017-04-11 15:02] VITALS: BP 115/66
[2017-04-11] MEDS ORDERED: METOCLOPRAMIDE HCL 10 MG/2 ML VIAL. IV ONE (15:45)
--- NOTE | 2017-04-11 16:22 | PDOC ---
PROGRESS NOTES Chief Complaint Chief Complaint CVA with left sided weakness hld htn Type 2 DM - uncontrolled Obesity Not compliant with meds leukocytosis, reactive likely constipation hypokalemia cdiff colitis neruogenic dysphagia with PEG History of Present Illness History of Present Illness high residual with tube feed last night, at 50mls feed, residual was > 100 X2, had backed off to 30/hr with good resutls, will now try IV reglan X1, add lidocaine patch for RLE knee and right thigh pain, reproducible fu with gi, neuro on ASA, lipitor through PEG ON peg, DC ppn pat consulted, waiting for family meeting recheck UA, UCX since leukocytosis, repeat CXR still neg. check bcx neg, SSI, add levemir 25u qhs, aspart 8u tid contv scopolamine patch insurance issues SW following Vitals Vitals Vital Signs Date Time Temp Pulse Resp B/P (MAP) Pulse Ox O2 Delivery O2 Flow Rate FiO2 04/11/17 15:02 98.0 70 19 115/66 (82) 97 Room Air 98.0 04/11/17 08:00 2.0 Physical Exam General: Alert, Cooperative, Other (arousable and following commands) Heart: Regular rate Lungs: Clear Abdomen: Soft, No tenderness Extremities: No clubbing, No cyanosis, No edema, Other (left arm paralyzed, left leg can move a little bit) Skin: No rashes, No breakdown Labs LABS Laboratory Tests Test 04/10/17 20:45 04/11/17 00:10 04/11/17 07:04 04/11/17 09:00 Glucose (Fingerstick) 145 mg/dL (70-99) 199 mg/dL (70-99) 189 mg/dL (70-99) White Blood Count 13.7 x10^3/uL (4.0-11.0) Red Blood Count 4.46 x10^6/uL (3.50-5.40) Hemoglobin 13.5 g/dL (12.0-15.5) Hematocrit 40.7 % (36.0-47.0) Mean Corpuscular Volume 91 fL (79-100) Mean Corpuscular Hemoglobin 30 pg (25-35) Mean Corpuscular Hemoglobin Concent 33 g/dL (31-37) Red Cell Distribution Width 12.6 % (11.5-14.5) Platelet Count 402 x10^3/uL (140-400) Neutrophils (%) (Auto) 74 % (31-73) Lymphocytes (%) (Auto) 17 % (24-48) Monocytes (%) (Auto) 6 % (0-9) Eosinophils (%) (Auto) 3 % (0-3) Basophils (%) (Auto) 1 % (0-3) Neutrophils # (Auto) 10.1 x10^3uL (1.8-7.7) Lymphocytes # (Auto) 2.3 x10^3/uL (1.0-4.8) Monocytes # (Auto) 0.8 x10^3/uL (0.0-1.1) Eosinophils # (Auto) 0.3 x10^3/uL (0.0-0.7) Basophils # (Auto) 0.1 x10^3/uL (0.0-0.2) Test 04/11/17 11:49 Glucose (Fingerstick) 147 mg/dL (70-99) Review of Systems Review of Systems right knee pain, no n,vd noted weakness, Assessment and Plan Assessmemt and Plan Problems Medical Problems: (1) CVA (cerebral vascular accident) Status: Acute Problems: Comment Review of Relevant I have reviewed the following items tamie (where applicable) has been applied. Labs Laboratory Tests Test 04/09/17 17:04 04/09/17 20:21 04/10/17 07:31 04/10/17 08:10 Glucose (Fingerstick) 73 mg/dL (70-99) 132 mg/dL (70-99) 154 mg/dL (70-99) White Blood Count 15.8 x10^3/uL (4.0-11.0) Red Blood Count 4.51 x10^6/uL (3.50-5.40) Hemoglobin 13.5 g/dL (12.0-15.5) Hematocrit 41.6 % (36.0-47.0) Mean Corpuscular Volume 92 fL (79-100) Mean Corpuscular Hemoglobin 30 pg (25-35) Mean Corpuscular Hemoglobin Concent 32 g/dL (31-37) Red Cell Distribution Width 12.8 % (11.5-14.5) Platelet Count 366 x10^3/uL (140-400) Neutrophils (%) (Auto) 74 % (31-73) Lymphocytes (%) (Auto) 14 % (24-48) Monocytes (%) (Auto) 6 % (0-9) Eosinophils (%) (Auto) 5 % (0-3) Basophils (%) (Auto) 1 % (0-3) Neutrophils # (Auto) 11.6 x10^3uL (1.8-7.7) Lymphocytes # (Auto) 2.2 x10^3/uL (1.0-4.8) Monocytes # (Auto) 1.0 x10^3/uL (0.0-1.1) Eosinophils # (Auto) 0.8 x10^3/uL (0.0-0.7) Basophils # (Auto) 0.1 x10^3/uL (0.0-0.2) Test 04/10/17 11:54 04/10/17 16:20 04/10/17 20:45 04/11/17 00:10 Glucose (Fingerstick) 106 mg/dL (70-99) 110 mg/dL (70-99) 145 mg/dL (70-99) 199 mg/dL (70-99) Test 04/11/17 07:04 04/11/17 09:00 04/11/17 11:49 Glucose (Fingerstick) 189 mg/dL (70-99) 147 mg/dL (70-99) White Blood Count 13.7 x10^3/uL (4.0-11.0) Red Blood Count 4.46 x10^6/uL (3.50-5.40) Hemoglobin 13.5 g/dL (12.0-15.5) Hematocrit 40.7 % (36.0-47.0) Mean Corpuscular Volume 91 fL (79-100) Mean Corpuscular Hemoglobin 30 pg (25-35) Mean Corpuscular Hemoglobin Concent 33 g/dL (31-37) Red Cell Distribution Width 12.6 % (11.5-14.5) Platelet Count 402 x10^3/uL (140-400) Neutrophils (%) (Auto) 74 % (31-73) Lymphocytes (%) (Auto) 17 % (24-48) Monocytes (%) (Auto) 6 % (0-9) Eosinophils (%) (Auto) 3 % (0-3) Basophils (%) (Auto) 1 % (0-3) Neutrophils # (Auto) 10.1 x10^3uL (1.8-7.7) Lymphocytes # (Auto) 2.3 x10^3/uL (1.0-4.8) Monocytes # (Auto) 0.8 x10^3/uL (0.0-1.1) Eosinophils # (Auto) 0.3 x10^3/uL (0.0-0.7) Basophils # (Auto) 0.1 x10^3/uL (0.0-0.2) Laboratory Tests Test 04/10/17 20:45 04/11/17 00:10 04/11/17 07:04 04/11/17 09:00 Glucose (Fingerstick) 145 mg/dL (70-99) 199 mg/dL (70-99) 189 mg/dL (70-99) White Blood Count 13.7 x10^3/uL (4.0-11.0) Red Blood Count 4.46 x10^6/uL (3.50-5.40) Hemoglobin 13.5 g/dL (12.0-15.5) Hematocrit 40.7 % (36.0-47.0) Mean Corpuscular Volume 91 fL (79-100) Mean Corpuscular Hemoglobin 30 pg (25-35) Mean Corpuscular Hemoglobin Concent 33 g/dL (31-37) Red Cell Distribution Width 12.6 % (11.5-14.5) Platelet Count 402 x10^3/uL (140-400) Neutrophils (%) (Auto) 74 % (31-73) Lymphocytes (%) (Auto) 17 % (24-48) Monocytes (%) (Auto) 6 % (0-9) Eosinophils (%) (Auto) 3 % (0-3) Basophils (%) (Auto) 1 % (0-3) Neutrophils # (Auto) 10.1 x10^3uL (1.8-7.7) Lymphocytes # (Auto) 2.3 x10^3/uL (1.0-4.8) Monocytes # (Auto) 0.8 x10^3/uL (0.0-1.1) Eosinophils # (Auto) 0.3 x10^3/uL (0.0-0.7) Basophils # (Auto) 0.1 x10^3/uL (0.0-0.2) Test 04/11/17 11:49 Glucose (Fingerstick) 147 mg/dL (70-99) Microbiology 04/03/17 Blood Culture - Final, Complete NO GROWTH AFTER 5 DAYS Medications Current Medications Insulin Aspart (NovoLOG) 0-5 UNITS TIDWMEALS SQ Last administered on 03/31/17 17:31; Start 03/24/17 at 17:00; Stop 04/01/17 at 09:20; Status DC Dextrose (Dextrose 50%-Water Syringe) 12.5 gm PRN Q15MIN PRN IV SEE COMMENTS; Start 03/24/17 at 12:30 Ceftriaxone Sodium 50 ml @ 100 mls/hr 1X ONCE IV Last administered on 13:33; Start 03/24/17 at 13:30; Stop 03/24/17 at 13:59; Status DC Ceftriaxone Sodium 1 gm/ Sodium Chloride 50 ml @ 100 mls/hr Q24H IV Last administered on 03/30/17 13:23; Start 03/25/17 at 14:00; Stop 03/31/17 at 14:28 ; Status DC Ondansetron HCl (Zofran) 4 mg PRN Q8HRS PRN IV NAUSEA/VOMITING; Start 03/24/17 at 13:30; Stop 03/25/17 at 13:29; Status DC Sodium Chloride 1,000 ml @ 125 mls/hr Q8H IV Last administered on 03/24/17 13 :37; Start 03/24/17 at 13:45; Stop 03/25/17 at 08:53; Status DC Aspirin (Aspirin) 300 mg 1X ONCE KS Last administered on 03/24/17 13:45; Start 03/24/17 at 13:45; Stop 03/24/17 at 13:46; Status DC Sodium Chloride (Normal Saline Flush) 3 ml QSHIFT PRN IV AFTER MEDS AND BLOOD DRAWS; Start 03/24/17 at 13:45 Sodium Chloride 1,000 ml @ 100 mls/hr Q10H IV Last administered on 03/25/17 01:22; Start 03/24/17 at 14:00; Stop 03/25/17 at 08:53; Status DC Aspirin (Ecotrin) 325 mg DAILYWBKFT PO Last administered on 04/11/17 09:46; Start 03/25/17 at 08:00 Atorvastatin Calcium (Lipitor) 20 mg QHS PO Last administered on 04/03/17 21:25 ; Start 03/24/17 at 21:00; Stop 04/04/17 at 14:01; Status DC Labetalol HCl (Normodyne) 10 mg PRN Q10MIN PRN IV HYPERTENSION, SEE COMMENTS Last administered on 03/25/17 20:08; Start 03/24/17 at 13:45 Acetaminophen (Tylenol) 650 mg PRN Q6HRS PRN PO FEVER; Start 03/24/17 at 13:45 ; Stop 03/29/17 at 21:13; Status DC Acetaminophen (Acetaminophen Supp) 650 mg PRN Q6HRS PRN [place] FEVER Last administered on 03/28/17 21:42; Start 03/24/17 at 13:45; Stop 03/31/17 at 14:28 ; Status DC Enoxaparin Sodium (Lovenox 40mg Syringe) 40 mg Q24H SQ Last administered on 15:26; Start 03/24/17 at 15:00; Stop 03/29/17 at 08:44; Status DC Iohexol (Omnipaque 350 Mg/ml) 60 ml 1X ONCE IV Last administered on 03/24/17 16:25; Start 03/24/17 at 16:15; Stop 03/24/17 at 16:20; Status DC Info (Do NOT chart on this entry -- for MONITORING) 1 each PRN DAILY PRN MC SEE COMMENTS; Start 03/24/17 at 16:30; Stop 03/26/17 at 16:29; Status DC Ondansetron HCl (Zofran) 4 mg PRN Q6HRS PRN IV NAUSEA/VOMITING; Start 03/24/17 at 16:30 Amino Acids/ Glycerin/ Electrolytes 1,000 ml @ 80 mls/hr [id number] IV Last administered on 03/31/17 03:34; Start 03/25/17 at 09:30; Stop 03/31/17 at 12:13 ; Status DC Barium Sulfate (Varibar Thin Liquid Apple) 148 gm 1X ONCE PO Last administered on 03/26/17 13:30; Start 03/26/17 at 13:30; Stop 03/26/17 at 13:31 ; Status DC Ringer's Solution 1,000 ml @ 50 mls/hr Q20H IV ; Start 03/29/17 at 07:00; Stop 03/29/17 at 07:28; Status DC Diphenhydramine HCl (Benadryl) 25 mg PRN Q6HRS PRN IVP ITCHING Last administered on 04/07/17 21:23; Start 03/26/17 at 23:00 Potassium Chloride 50 ml @ 50 mls/hr Q1H IV ; Start 03/27/17 at 13:00; Stop at 14:59; Status UNV Potassium Chloride 100 ml @ 100 mls/hr Q1H IV Last administered on 03/27/17 19:45; Start 03/27/17 at 13:00; Stop 03/27/17 at 16:59; Status DC Ringer's Solution 1,000 ml @ 50 mls/hr Q20H IV ; Start 03/29/17 at 13:00; Stop 03/29/17 at 19:13; Status DC Midazolam HCl (Versed) 2 mg PRN 1X PRN IV PRIOR TO PROCEDURE; Start 03/29/17 at 12:15; Stop 03/29/17 at 15:49; Status DC Fentanyl Citrate (Fentanyl 2ml Vial) 25 mcg PRN Q5MIN PRN IV X 2 DOSES FOR PAIN ; Start 03/29/17 at 12:15; Stop 03/29/17 at 15:49; Status DC Fentanyl Citrate (Fentanyl 2ml Vial) 50 mcg PRN Q5MIN PRN IV X 2 DOSES FOR PAIN ; Start 03/29/17 at 12:15; Stop 03/29/17 at 15:49; Status DC Ringer's Solution 1,000 ml @ 125 mls/hr Q8H IV Last administered on 03/29/17 12:38; Start 03/29/17 at 12:07; Stop 03/29/17 at 17:31; Status DC Lidocaine HCl 2 ml 1X PRN PRN ID IV START; Start 03/29/17 at 12:15; Stop at 12:14; Status DC Propofol 20 ml @ As Directed STK-MED ONCE IV ; Start 03/29/17 at 12:29; Stop at 12:30; Status DC Morphine Sulfate 1 mg PRN Q2HR PRN IV PAIN Last administered on 04/06/17 23:39 ; Start 03/29/17 at 16:15 Morphine Sulfate 2 mg PRN Q2HR PRN IV PAIN Last administered on 04/03/17 02:41 ; Start 03/29/17 at 16:15; Stop 04/06/17 at 12:12; Status DC Acetaminophen (Tylenol) 650 mg PRN Q6HRS PRN PEG MILD PAIN / TEMP Last administered on 04/11/17 09:46; Start 03/29/17 at 21:15 Senna/Docusate Sodium (Senna Plus) 1 tab BID PO Last administered on 04/11/17 09:47; Start 03/31/17 at 21:00 Docusate Sodium (Colace) 100 mg BID PO Last administered on 04/11/17 09:46; Start 03/31/17 at 21:00 Magnesium Hydroxide (Milk Of Magnesia) 2,400 mg PRN Q12HR PRN PO CONSTIPATION Last administered on 04/11/17 12:58; Start 03/31/17 at 12:15 Potassium Chloride (KCl Oral Soln) 40 meq 1X ONCE PEG Last administered on 11:30; Start 04/01/17 at 11:15; Stop 04/01/17 at 11:16; Status DC Insulin Aspart (NovoLOG) 0-9 UNITS TIDWMEALS SQ Last administered on 04/09/17 09:21; Start 04/01/17 at 12:00 Dextrose (Dextrose 50%-Water Syringe) 12.5 gm PRN Q15MIN PRN IV SEE COMMENTS; Start 04/01/17 at 11:15; Status UNV Insulin Detemir (Levemir) 10 units QHS SQ Last administered on 04/01/17 21:49 ; Start 04/01/17 at 21:00; Stop 04/02/17 at 08:18; Status DC Insulin Detemir (Levemir) 15 units QHS SQ Last administered on 04/02/17 21:21; Start 04/02/17 at 21:00; Stop 04/03/17 at 13:21; Status DC Insulin Aspart (NovoLOG) 5 units TIDAC SQ Last administered on 04/03/17 12:49; Start 04/02/17 at 11:30; Stop 04/03/17 at 13:21; Status DC Scopolamine (Transderm-Scop) 1 patch Q3DAYS TD Last administered on 04/11/17 09:47; Start 04/02/17 at 10:00 Insulin Aspart (NovoLOG) 7 units TIDAC SQ Last administered on 04/07/17 09:01; Start 04/03/17 at 16:30; Stop 04/07/17 at 12:49; Status DC Insulin Detemir (Levemir) 20 units QHS SQ Last administered on 04/04/17 20:53; Start 04/03/17 at 21:00; Stop 04/05/17 at 08:47; Status DC Atorvastatin Calcium (Lipitor) 40 mg QHS PO Last administered on 04/10/17 20:45 ; Start 04/04/17 at 21:00 Insulin Detemir (Levemir) 22 units QHS SQ ; Start 04/05/17 at 21:00; Stop at 21:00; Status DC Insulin Detemir (Levemir) 25 units QHS SQ Last administered on 04/11/17 00:17 ; Start 04/05/17 at 21:00 Iohexol (Omnipaque 240 Mg/ml) 50 ml 1X ONCE PO Last administered on 04/06/17 11:45; Start 04/06/17 at 11:45; Stop 04/06/17 at 11:46; Status DC Iohexol (Omnipaque 300 Mg/ml) 60 ml 1X ONCE IV Last administered on 04/06/17 13:29; Start 04/06/17 at 11:45; Stop 04/06/17 at 11:46; Status DC Info (Do NOT chart on this entry -- for MONITORING) 1 each PRN DAILY PRN MC SEE COMMENTS; Start 04/06/17 at 11:45; Stop 04/08/17 at 11:44; Status DC Iohexol (Omnipaque 300 Mg/ml) 75 ml STK-MED ONCE .ROUTE ; Start 04/06/17 at 15:05 ; Stop 04/06/17 at 15:06; Status DC Iohexol (Omnipaque 240 Mg/ml) 50 ml STK-MED ONCE .ROUTE ; Start 04/06/17 at 15:06 ; Stop 04/06/17 at 15:07; Status DC Metronidazole 100 ml @ 100 mls/hr Q8HRS IV Last administered on 04/06/17 21:49 ; Start 04/06/17 at 22:00; Stop 04/07/17 at 06:02; Status DC Metronidazole (Flagyl) 500 mg Q8HRS NG Last administered on 04/11/17 13:12; Start 04/07/17 at 06:30 Insulin Aspart (NovoLOG) 8 units TIDAC SQ Last administered on 04/11/17 13:04 ; Start 04/07/17 at 16:30 Albuterol Sulfate (Ventolin Neb Soln) 2.5 mg PRN Q4HRS PRN NEB WHEEZING; Start 04/09/17 at 04:30 Albuterol/ Ipratropium (Duoneb) 3 ml RTBID NEB Last administered on 04/11/17 08:13; Start 04/09/17 at 08:00 Zinc Acetate/ Diphenhydramine (Benadryl Topical) 1 jonn TID TP Last administered on 04/11/17 13:12; Start 04/10/17 at 15:00 Dextrose/Sodium Chloride 1,000 ml @ 50 mls/hr Q20H IV Last administered on 04/10 23:33; Start 04/10/17 at 19:45 Metoclopramide HCl (Reglan) 5 mg 1X ONCE IV Last administered on 04/11/17 15: 43; Start 04/11/17 at 15:45; Stop 04/11/17 at 15:46; Status DC Active Scripts Active Transderm-Scop (Scopolamine) 1 Each Patch.td72 1 Patch TD Q3DAYS 30 Days Flagyl (Metronidazole) 500 Mg Tablet 500 Mg NG Q8HRS 14 Days Levemir Flextouch (Insulin Detemir) 100 Unit/1 Ml Insuln.pen 25 Units SQ QHS 30 Days Novolog Flexpen (Insulin Aspart) 100 Unit/1 Ml Insuln.pen 7 Units SQ TIDAC 30 Days Atorvastatin Calcium 40 Mg Tablet 40 Mg PO QHS 30 Days Aspirin Ec (Aspirin) 325 Mg Tablet.dr 325 Mg PO DAILYWBKFT 30 Days Reported Atorvastatin Calcium 40 Mg Tablet 1 Tab PO DAILY Vitals/I & O Vital Sign - Last 24 Hours 04/10/17 04/10/17 04/10/17 04/10/17 19:40 19:59 20:10 23:48 Temp 99.0 98.8 99.0 98.8 Pulse 78 83 Resp 16 16 B/P (MAP) 184/87 (119) 167/86 (113) Pulse Ox 95 97 93 O2 Delivery Room Air Room Air Room Air Room Air 04/11/17 04/11/17 04/11/17 04/11/17 03:04 04:16 07:05 08:00 Temp 98.0 98.3 98.0 98.3 Pulse 74 71 Resp 18 16 19 B/P (MAP) 152/68 (96) 150/70 (96) Pulse Ox 93 98 O2 Delivery Room Air Room Air Room Air Room Air O2 Flow Rate 2.0 04/11/17 04/11/17 04/11/17 08:15 10:51 15:02 Temp 98.4 98.0 98.4 98.0 Pulse 57 70 Resp 17 19 B/P (MAP) 174/71 (105) 115/66 (82) Pulse Ox 96 98 97 O2 Delivery Room Air Room Air Room Air Intake and Output 04/11/17 04/11/17 04/12/17 15:00 23:00 07:00 Intake Total 610 ml 150 ml Output Total 0 ml 150 ml Balance 610 ml 0 ml IZABELA CROCKETT MD Apr 11, 2017 16:21
[2017-04-11] MEDS ORDERED: LIDOCAINE (700MG/PATCH) PATCH. TD SCH (16:30)
[2017-04-11] MEDS: IV DEXTROSE 5 %-0.45 % NACL 1,000 ML IV SCH (16:51)
[2017-04-11 19:50] VITALS: BP 132/40
[2017-04-11] MEDS: ATORVASTATIN CALCIUM 40 MG TABLET. PO SCH (20:32)
[2017-04-11 23:17] VITALS: BP 139/69
[2017-04-12] VITALS (7 sets, daily range): BP systolic 123–186; BP diastolic 51–97
[2017-04-12] MEDS: metroNIDAZOLE 500 MG TABLET NG SCH ×3 (05:22→20:15)
[2017-04-12] MEDS: IPRATRPIUM/ALBUTEROL 0.5/2.5MG 3 ML NEBU. NEB SCH ×2 (08:26→19:23)
[2017-04-12] MEDS: DOCUSATE SODIUM 100 MG CAPSULE. PO SCH ×2 (09:00→20:02)
[2017-04-12] MEDS: SENNOSIDES/DOCUSATE 8.6/50MG TABLET. PO SCH ×2 (09:00→20:03)
[2017-04-12] MEDS: ASPIRIN ENTERIC COATED 325 MG TABLET.DR. PO SCH (09:02)
[2017-04-12] MEDS: ACETAMINOPHEN 650 MG/20.3 ML SOLUTION. PEG PRN ×2 (09:03→15:34)
[2017-04-12] MEDS: DIPHENHYDRAMINE/ZINC ACETATE 2%/0.1% TOPICAL CREAM 28GM TUBE. TP SCH ×3 (09:03→20:15)
[2017-04-12] MEDS: INSULIN ASPART 300 UNITS/3 ML INSULN.PEN SQ SCH ×6 (09:07→17:28)
[2017-04-12] MEDS: IV DEXTROSE 5 %-0.45 % NACL 1,000 ML IV SCH (12:41)
--- NOTE | 2017-04-12 12:52 | PDOC ---
PROGRESS NOTES Chief Complaint Chief Complaint CVA with left sided weakness ASSESSMENT AND PLAN: 1. CVA: dense L hemiplegia. needs rehab 2. HTN: currently well controlled 3. HLD: on statin 4. DM2: currently well controlled; less so at home with HgbA1c 7.9. cont levemir, ISS 5. Leukocytosis: stable, persisting. check bcr/abl to r/o CML 6. Hypokalemia: resolved 7. neurogenic dysphagia with PEG: cont glucerna ATC 8. C.diff colitis: on flagyl tid 9. Neck pain: heating pad 10. Dispo: needs rehab. language and insurance barriers Vitals Vitals Vital Signs Date Time Temp Pulse Resp B/P (MAP) Pulse Ox O2 Delivery O2 Flow Rate FiO2 04/12/17 11:26 98.1 64 20 123/75 (91) 98 Room Air 98.1 04/11/17 08:00 2.0 Physical Exam General: Alert, Cooperative, No acute distress, Other (arousable and following commands) Heart: Regular rate Lungs: Clear Abdomen: Soft, No tenderness Extremities: No clubbing, No cyanosis, No edema, Other (left arm paralyzed, left leg can move a little bit) Skin: No rashes, No breakdown Labs LABS Laboratory Tests Test 04/11/17 16:29 04/11/17 20:49 04/12/17 07:03 04/12/17 11:15 Glucose (Fingerstick) 98 mg/dL (70-99) 139 mg/dL (70-99) 186 mg/dL (70-99) 174 mg/dL (70-99) LESLEE FORRESTER MD Apr 12, 2017 12:52
[2017-04-12] MEDS: LIDOCAINE (700MG/PATCH) PATCH. TD SCH (15:28)
--- NOTE | 2017-04-12 17:42 | PDOC ---
PROGRESS NOTES Assessment Assessment Subacute right BG, goldsmith radiata and right hemisphere infracts. Metabolic encephalopathy. Left side hemiplegia. 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 DM HTN HLD Obesity. UTI RECOMMENDATIONS/PLAN: Continue ASA 325 mg daily. Continue Lipitor HS. Vascular Surgery consulted but no indication for surgical intervention. OT/PT Rehab. Discussed with her family again at bedside on 04/12/17. Past Medical History Cardiovascular: HTN CENTRAL NERVOUS SYSTEM: Other (headaches) GI: Other (she has been having some abdominal pain) Endocrine: Diabetes Past Surgical History Family History Hypertension Social History , used to smoke and uses alcohol but none in the last several years. ALLERGY: Reviewed. MEDICATIONS: Refer to MAR REVIEW OF SYSTEMS: Constitutional: No malnutrition, weight loss, cachexia. Head: No traumatic brain or head injury. Skin: No edema, or rash. Ear: No infection. Eyes: No vision loss, or diplopia. Nose: No bleeding or purulent discharges. Hearing: No hearing decrease. Neck: No injury. Breast: No history of cancer, masses, or discharges. Cardiac: HTN, HLD Pulmonary: No CPOD. GI: No GI Ulcer, GI bleeding Urinary/genital: UTI. Endocrine: Diabetes Mellitus, obesity. Skeletomuscular: No muscular atrophy, deformity. Neurological: see HP. Psychiatric: Denies drug use/abuse. Otherwise, not [id number] review of systems. PHYSICAL EXAMINATION: General appearance in subacute distress. HEENT: Normocephalic and nontraumatic. Eyes, nose, ears, and throat are unremarkable. Neck is supple. No lymphadenopathy. No No Crepitus. Cardiovascular: S1, S2, regular rate and rhythm. Pulmonary: No rails heard to auscultation bilaterally. Abdomen: Bowel sounds are positive. Extremities: No rash, lesions, or edema. NEUROLOGICAL EXAMINATION: Awake. Sitting in chair. Able to follow a few commands with help of her son. Not oriented to time, place but knows her family members. PERRL. EOMI but slow. Gaze deviation to right side. CN: left VII palsy. Muscle tone: within normal. Muscle strength: 0-1 left UE, 2 left LE, 5- right side. DTR: 1+ Left UE and LE Plantar reflex: left side extensor response, right side neutral response. Gait: Unable to walk. Sensory exam: decreased in left UE and LE. No acute cerebellar signs elicited. F-T-N test fine in right hand.. Objective Objective Vital Signs Date Time Temp Pulse Resp B/P (MAP) Pulse Ox O2 Delivery O2 Flow Rate FiO2 04/12/17 17:02 96 Room Air 04/12/17 14:37 97.9 61 18 157/94 (115) 97.9 04/11/17 08:00 2.0 Intake and Output 04/13/17 07:00 Intake Total 120 ml Output Total 0 ml Balance 120 ml Intake Oral 0 ml Tube Feeding 120 ml Gastric Drainage Total 0 ml # Voids 5 Vitals Signs Vitals VS - Last 72 Hours, by Label Date Time Temp Pulse Resp B/P (MAP) Pulse Ox O2 Delivery O2 Flow Rate FiO2 04/12/17 17:02 96 Room Air 04/12/17 14:37 97.9 61 18 157/94 (115) 94 Room Air 97.9 04/12/17 11:26 98.1 64 20 123/75 (91) 98 Room Air 98.1 04/12/17 09:38 Room Air 04/12/17 08:28 96 Room Air 04/12/17 08:08 98.2 60 14 148/97 (114) 95 Room Air 98.2 04/12/17 08:00 Room Air 04/12/17 07:10 97.9 59 17 186/86 (119) 95 Room Air 97.9 04/12/17 03:16 98.3 61 18 165/51 (89) 92 Room Air 98.3 04/11/17 23:17 98.3 66 18 139/69 (92) 95 Room Air 98.3 04/11/17 20:00 Room Air 04/11/17 19:50 98.8 71 16 132/40 (70) Room Air 98.8 04/11/17 19:30 96 Room Air 04/11/17 15:02 98.0 70 19 115/66 (82) 97 Room Air 98.0 04/11/17 10:51 98.4 57 17 174/71 (105) 98 Room Air 98.4 04/11/17 08:15 96 Room Air 04/11/17 08:00 Room Air 2.0 04/11/17 07:05 98.3 71 19 150/70 (96) 98 Room Air 98.3 Laboratory Laboratory Laboratory Tests Test 04/11/17 20:49 04/12/17 07:03 04/12/17 11:15 04/12/17 17:04 Glucose (Fingerstick) 139 mg/dL (70-99) 186 mg/dL (70-99) 174 mg/dL (70-99) 110 mg/dL (70-99) Microbiology 04/03/17 Blood Culture - Final, Complete NO GROWTH AFTER 5 DAYS Medication Medications Current Medications Lidocaine (Lidoderm) 1 patch [id number] TD ; Start 04/12/17 at 16:00 Comment Review of Relevant I have reviewed the following items tamie (where applicable) has been applied. REEMA CARTER MD Apr 12, 2017 17:42
[2017-04-12] MEDS: ATORVASTATIN CALCIUM 40 MG TABLET. PO SCH (20:15)
[2017-04-12] MEDS: MORPHINE SULFATE 2 MG/ML DISP.SYRIN. IV PRN (20:16)
[2017-04-12] MEDS: INSULIN DETEMIR 300 UNITS/3 ML INSULN.PEN. SQ SCH (22:18)
[2017-04-13 03:10] VITALS: BP 135/66
[2017-04-13 05:15] LABS: BASO # 0.2 x10^3/uL (0.0-0.2); BASO % 2 % (0-3); EOS % 5 % (0-3); HEMATOCRIT 38.6 % (36.0-47.0); LYMPH # 2.3 x10^3/uL (1.0-4.8); LYMPH % 22 % (24-48); MEAN CORPUSCULAR HEMOGLOBIN 30 pg (25-35); MEAN CORPUSCULAR HGB CONC 34 g/dL (31-37); MEAN CORPUSCULAR VOLUME 90 fL (79-100); MONO % 8 % (0-9); NEUT % 63 % (31-73); PLATELET COUNT 414 x10^3/uL (140-400); RED BLOOD COUNT 4.28 x10^6/uL (3.50-5.40); RED CELL DISTRIBUTION WIDTH 12.5 % (11.5-14.5); WHITE BLOOD COUNT 10.2 x10^3/uL (4.0-11.0)
[2017-04-13] MEDS: ASPIRIN ENTERIC COATED 325 MG TABLET.DR. PO SCH (05:29)
[2017-04-13] MEDS: metroNIDAZOLE 500 MG TABLET NG SCH ×3 (05:29→21:54)
[2017-04-13 05:49] LABS: CALCIUM 8.2 mg/dL (8.5-10.1); CREATININE 0.9 mg/dL (0.6-1.0); GFR 62.3; MAGNESIUM 2.3 mg/dL (1.8-2.4); POTASSIUM 3.6 mmol/L (3.5-5.1)
[2017-04-13 07:28] VITALS: BP 155/72
[2017-04-13] MEDS: SENNOSIDES/DOCUSATE 8.6/50MG TABLET. PO SCH ×2 (07:32→21:00)
[2017-04-13] MEDS: DOCUSATE SODIUM 100 MG CAPSULE. PO SCH ×2 (07:32→21:00)
[2017-04-13] MEDS: IPRATRPIUM/ALBUTEROL 0.5/2.5MG 3 ML NEBU. NEB SCH ×2 (07:38→19:48)
[2017-04-13] MEDS: IV DEXTROSE 5 %-0.45 % NACL 1,000 ML IV SCH (07:58)
[2017-04-13] MEDS: DIPHENHYDRAMINE/ZINC ACETATE 2%/0.1% TOPICAL CREAM 28GM TUBE. TP SCH ×3 (08:00→21:55)
[2017-04-13] MEDS: INSULIN ASPART 300 UNITS/3 ML INSULN.PEN SQ SCH ×6 (08:02→16:55)
[2017-04-13] MEDS: MORPHINE SULFATE 2 MG/ML DISP.SYRIN. IV PRN (10:22)
[2017-04-13 10:24] VITALS: BP 159/81
[2017-04-13] MEDS: LIDOCAINE (700MG/PATCH) PATCH. TD SCH (13:21)
[2017-04-13 14:47] VITALS: BP 167/75
--- NOTE | 2017-04-13 15:16 | PDOC ---
PROGRESS NOTES Chief Complaint Chief Complaint CVA with left sided weakness ASSESSMENT AND PLAN: 1. CVA: dense L hemiplegia. needs rehab 2. HTN: currently well controlled 3. HLD: on statin 4. DM2: currently well controlled; less so at home with HgbA1c 7.9. cont levemir, ISS 5. Leukocytosis: stable, persisting. check bcr/abl to r/o CML 6. Hypokalemia: resolved 7. neurogenic dysphagia with PEG: cont glucerna ATC 8. C.diff colitis: on flagyl tid 9. Neck pain: heating pad 10. Dispo: needs rehab. language and insurance barriers History of Present Illness History of Present Illness clinically unchanged. favoring R side gaze Vitals Vitals Vital Signs Date Time Temp Pulse Resp B/P (MAP) Pulse Ox O2 Delivery O2 Flow Rate FiO2 04/13/17 14:47 98.1 62 17 167/75 (105) 96 Room Air 98.1 04/12/17 22:18 2.0 Physical Exam General: Alert, Cooperative, No acute distress, Other (arousable and following commands) Heart: Regular rate Lungs: Clear Abdomen: Soft, No tenderness Extremities: No clubbing, No cyanosis, No edema, Other (left arm paralyzed, left leg can move a little bit) Skin: No rashes, No breakdown Labs LABS Laboratory Tests Test 04/12/17 17:04 04/12/17 21:23 04/13/17 04:10 04/13/17 07:23 Glucose (Fingerstick) 110 mg/dL (70-99) 142 mg/dL (70-99) 196 mg/dL (70-99) White Blood Count 10.2 x10^3/uL (4.0-11.0) Red Blood Count 4.28 x10^6/uL (3.50-5.40) Hemoglobin 13.0 g/dL (12.0-15.5) Hematocrit 38.6 % (36.0-47.0) Mean Corpuscular Volume 90 fL (79-100) Mean Corpuscular Hemoglobin 30 pg (25-35) Mean Corpuscular Hemoglobin Concent 34 g/dL (31-37) Red Cell Distribution Width 12.5 % (11.5-14.5) Platelet Count 414 x10^3/uL (140-400) Neutrophils (%) (Auto) 63 % (31-73) Lymphocytes (%) (Auto) 22 % (24-48) Monocytes (%) (Auto) 8 % (0-9) Eosinophils (%) (Auto) 5 % (0-3) Basophils (%) (Auto) 2 % (0-3) Neutrophils # (Auto) 6.5 x10^3uL (1.8-7.7) Lymphocytes # (Auto) 2.3 x10^3/uL (1.0-4.8) Monocytes # (Auto) 0.8 x10^3/uL (0.0-1.1) Eosinophils # (Auto) 0.5 x10^3/uL (0.0-0.7) Basophils # (Auto) 0.2 x10^3/uL (0.0-0.2) Sodium Level 138 mmol/L (136-145) Potassium Level 3.6 mmol/L (3.5-5.1) Chloride Level 103 mmol/L (98-107) Carbon Dioxide Level 28 mmol/L (21-32) Anion Gap 7 (6-14) Blood Urea Nitrogen 17 mg/dL (7-20) Creatinine 0.9 mg/dL (0.6-1.0) Estimated GFR (Cockcroft-Gault) 62.3 Glucose Level 205 mg/dL (70-99) Calcium Level 8.2 mg/dL (8.5-10.1) Magnesium Level 2.3 mg/dL (1.8-2.4) Test 04/13/17 11:19 Glucose (Fingerstick) 143 mg/dL (70-99) Assessment and Plan Assessmemt and Plan Problems Medical Problems: (1) CVA (cerebral vascular accident) Status: Acute Problems: Comment Review of Relevant I have reviewed the following items tamie (where applicable) has been applied. Labs Laboratory Tests Test 04/11/17 16:29 04/11/17 20:49 04/12/17 07:03 04/12/17 11:15 Glucose (Fingerstick) 98 mg/dL (70-99) 139 mg/dL (70-99) 186 mg/dL (70-99) 174 mg/dL (70-99) Test 04/12/17 17:04 04/12/17 21:23 04/13/17 04:10 04/13/17 07:23 Glucose (Fingerstick) 110 mg/dL (70-99) 142 mg/dL (70-99) 196 mg/dL (70-99) White Blood Count 10.2 x10^3/uL (4.0-11.0) Red Blood Count 4.28 x10^6/uL (3.50-5.40) Hemoglobin 13.0 g/dL (12.0-15.5) Hematocrit 38.6 % (36.0-47.0) Mean Corpuscular Volume 90 fL (79-100) Mean Corpuscular Hemoglobin 30 pg (25-35) Mean Corpuscular Hemoglobin Concent 34 g/dL (31-37) Red Cell Distribution Width 12.5 % (11.5-14.5) Platelet Count 414 x10^3/uL (140-400) Neutrophils (%) (Auto) 63 % (31-73) Lymphocytes (%) (Auto) 22 % (24-48) Monocytes (%) (Auto) 8 % (0-9) Eosinophils (%) (Auto) 5 % (0-3) Basophils (%) (Auto) 2 % (0-3) Neutrophils # (Auto) 6.5 x10^3uL (1.8-7.7) Lymphocytes # (Auto) 2.3 x10^3/uL (1.0-4.8) Monocytes # (Auto) 0.8 x10^3/uL (0.0-1.1) Eosinophils # (Auto) 0.5 x10^3/uL (0.0-0.7) Basophils # (Auto) 0.2 x10^3/uL (0.0-0.2) Sodium Level 138 mmol/L (136-145) Potassium Level 3.6 mmol/L (3.5-5.1) Chloride Level 103 mmol/L (98-107) Carbon Dioxide Level 28 mmol/L (21-32) Anion Gap 7 (6-14) Blood Urea Nitrogen 17 mg/dL (7-20) Creatinine 0.9 mg/dL (0.6-1.0) Estimated GFR (Cockcroft-Gault) 62.3 Glucose Level 205 mg/dL (70-99) Calcium Level 8.2 mg/dL (8.5-10.1) Magnesium Level 2.3 mg/dL (1.8-2.4) Test 04/13/17 11:19 Glucose (Fingerstick) 143 mg/dL (70-99) Laboratory Tests Test 04/12/17 17:04 04/12/17 21:23 04/13/17 04:10 04/13/17 07:23 Glucose (Fingerstick) 110 mg/dL (70-99) 142 mg/dL (70-99) 196 mg/dL (70-99) White Blood Count 10.2 x10^3/uL (4.0-11.0) Red Blood Count 4.28 x10^6/uL (3.50-5.40) Hemoglobin 13.0 g/dL (12.0-15.5) Hematocrit 38.6 % (36.0-47.0) Mean Corpuscular Volume 90 fL (79-100) Mean Corpuscular Hemoglobin 30 pg (25-35) Mean Corpuscular Hemoglobin Concent 34 g/dL (31-37) Red Cell Distribution Width 12.5 % (11.5-14.5) Platelet Count 414 x10^3/uL (140-400) Neutrophils (%) (Auto) 63 % (31-73) Lymphocytes (%) (Auto) 22 % (24-48) Monocytes (%) (Auto) 8 % (0-9) Eosinophils (%) (Auto) 5 % (0-3) Basophils (%) (Auto) 2 % (0-3) Neutrophils # (Auto) 6.5 x10^3uL (1.8-7.7) Lymphocytes # (Auto) 2.3 x10^3/uL (1.0-4.8) Monocytes # (Auto) 0.8 x10^3/uL (0.0-1.1) Eosinophils # (Auto) 0.5 x10^3/uL (0.0-0.7) Basophils # (Auto) 0.2 x10^3/uL (0.0-0.2) Sodium Level 138 mmol/L (136-145) Potassium Level 3.6 mmol/L (3.5-5.1) Chloride Level 103 mmol/L (98-107) Carbon Dioxide Level 28 mmol/L (21-32) Anion Gap 7 (6-14) Blood Urea Nitrogen 17 mg/dL (7-20) Creatinine 0.9 mg/dL (0.6-1.0) Estimated GFR (Cockcroft-Gault) 62.3 Glucose Level 205 mg/dL (70-99) Calcium Level 8.2 mg/dL (8.5-10.1) Magnesium Level 2.3 mg/dL (1.8-2.4) Test 04/13/17 11:19 Glucose (Fingerstick) 143 mg/dL (70-99) Microbiology 04/03/17 Blood Culture - Final, Complete NO GROWTH AFTER 5 DAYS Medications Current Medications Insulin Aspart (NovoLOG) 0-5 UNITS TIDWMEALS SQ Last administered on 03/31/17 17:31; Start 03/24/17 at 17:00; Stop 04/01/17 at 09:20; Status DC Dextrose (Dextrose 50%-Water Syringe) 12.5 gm PRN Q15MIN PRN IV SEE COMMENTS; Start 03/24/17 at 12:30 Ceftriaxone Sodium 50 ml @ 100 mls/hr 1X ONCE IV Last administered on 13:33; Start 03/24/17 at 13:30; Stop 03/24/17 at 13:59; Status DC Ceftriaxone Sodium 1 gm/ Sodium Chloride 50 ml @ 100 mls/hr Q24H IV Last administered on 03/30/17 13:23; Start 03/25/17 at 14:00; Stop 03/31/17 at 14:28 ; Status DC Ondansetron HCl (Zofran) 4 mg PRN Q8HRS PRN IV NAUSEA/VOMITING; Start 03/24/17 at 13:30; Stop 03/25/17 at 13:29; Status DC Sodium Chloride 1,000 ml @ 125 mls/hr Q8H IV Last administered on 03/24/17 13 :37; Start 03/24/17 at 13:45; Stop 03/25/17 at 08:53; Status DC Aspirin (Aspirin) 300 mg 1X ONCE PA Last administered on 03/24/17 13:45; Start 03/24/17 at 13:45; Stop 03/24/17 at 13:46; Status DC Sodium Chloride (Normal Saline Flush) 3 ml QSHIFT PRN IV AFTER MEDS AND BLOOD DRAWS; Start 03/24/17 at 13:45 Sodium Chloride 1,000 ml @ 100 mls/hr Q10H IV Last administered on 03/25/17 01:22; Start 03/24/17 at 14:00; Stop 03/25/17 at 08:53; Status DC Aspirin (Ecotrin) 325 mg DAILYWBKFT PO Last administered on 04/13/17 05:29; Start 03/25/17 at 08:00 Atorvastatin Calcium (Lipitor) 20 mg QHS PO Last administered on 04/03/17 21:25 ; Start 03/24/17 at 21:00; Stop 04/04/17 at 14:01; Status DC Labetalol HCl (Normodyne) 10 mg PRN Q10MIN PRN IV HYPERTENSION, SEE COMMENTS Last administered on 03/25/17 20:08; Start 03/24/17 at 13:45 Acetaminophen (Tylenol) 650 mg PRN Q6HRS PRN PO FEVER; Start 03/24/17 at 13:45 ; Stop 03/29/17 at 21:13; Status DC Acetaminophen (Acetaminophen Supp) 650 mg PRN Q6HRS PRN PA FEVER Last administered on 03/28/17 21:42; Start 03/24/17 at 13:45; Stop 03/31/17 at 14:28 ; Status DC Enoxaparin Sodium (Lovenox 40mg Syringe) 40 mg Q24H SQ Last administered on 15:26; Start 03/24/17 at 15:00; Stop 03/29/17 at 08:44; Status DC Iohexol (Omnipaque 350 Mg/ml) 60 ml 1X ONCE IV Last administered on 03/24/17 16:25; Start 03/24/17 at 16:15; Stop 03/24/17 at 16:20; Status DC Info (Do NOT chart on this entry -- for MONITORING) 1 each PRN DAILY PRN MC SEE COMMENTS; Start 03/24/17 at 16:30; Stop 03/26/17 at 16:29; Status DC Ondansetron HCl (Zofran) 4 mg PRN Q6HRS PRN IV NAUSEA/VOMITING; Start 03/24/17 at 16:30 Amino Acids/ Glycerin/ Electrolytes 1,000 ml @ 80 mls/hr [id number] IV Last administered on 03/31/17 03:34; Start 03/25/17 at 09:30; Stop 03/31/17 at 12:13 ; Status DC Barium Sulfate (Varibar Thin Liquid Apple) 148 gm 1X ONCE PO Last administered on 03/26/17 13:30; Start 03/26/17 at 13:30; Stop 03/26/17 at 13:31 ; Status DC Ringer's Solution 1,000 ml @ 50 mls/hr Q20H IV ; Start 03/29/17 at 07:00; Stop 03/29/17 at 07:28; Status DC Diphenhydramine HCl (Benadryl) 25 mg PRN Q6HRS PRN IVP ITCHING Last administered on 04/07/17 21:23; Start 03/26/17 at 23:00 Potassium Chloride 50 ml @ 50 mls/hr Q1H IV ; Start 03/27/17 at 13:00; Stop at 14:59; Status UNV Potassium Chloride 100 ml @ 100 mls/hr Q1H IV Last administered on 03/27/17 19:45; Start 03/27/17 at 13:00; Stop 03/27/17 at 16:59; Status DC Ringer's Solution 1,000 ml @ 50 mls/hr Q20H IV ; Start 03/29/17 at 13:00; Stop 03/29/17 at 19:13; Status DC Midazolam HCl (Versed) 2 mg PRN 1X PRN IV PRIOR TO PROCEDURE; Start 03/29/17 at 12:15; Stop 03/29/17 at 15:49; Status DC Fentanyl Citrate (Fentanyl 2ml Vial) 25 mcg PRN Q5MIN PRN IV X 2 DOSES FOR PAIN ; Start 03/29/17 at 12:15; Stop 03/29/17 at 15:49; Status DC Fentanyl Citrate (Fentanyl 2ml Vial) 50 mcg PRN Q5MIN PRN IV X 2 DOSES FOR PAIN ; Start 03/29/17 at 12:15; Stop 03/29/17 at 15:49; Status DC Ringer's Solution 1,000 ml @ 125 mls/hr Q8H IV Last administered on 03/29/17 12:38; Start 03/29/17 at 12:07; Stop 03/29/17 at 17:31; Status DC Lidocaine HCl 2 ml 1X PRN PRN ID IV START; Start 03/29/17 at 12:15; Stop at 12:14; Status DC Propofol 20 ml @ As Directed STK-MED ONCE IV ; Start 03/29/17 at 12:29; Stop at 12:30; Status DC Morphine Sulfate 1 mg PRN Q2HR PRN IV PAIN Last administered on 04/13/17 10:22 ; Start 03/29/17 at 16:15 Morphine Sulfate 2 mg PRN Q2HR PRN IV PAIN Last administered on 04/03/17 02:41 ; Start 03/29/17 at 16:15; Stop 04/06/17 at 12:12; Status DC Acetaminophen (Tylenol) 650 mg PRN Q6HRS PRN PEG MILD PAIN / TEMP Last administered on 04/12/17 15:34; Start 03/29/17 at 21:15 Senna/Docusate Sodium (Senna Plus) 1 tab BID PO Last administered on 04/11/17 20:32; Start 03/31/17 at 21:00 Docusate Sodium (Colace) 100 mg BID PO Last administered on 04/11/17 20:32; Start 03/31/17 at 21:00 Magnesium Hydroxide (Milk Of Magnesia) 2,400 mg PRN Q12HR PRN PO CONSTIPATION Last administered on 04/11/17 12:58; Start 03/31/17 at 12:15 Potassium Chloride (KCl Oral Soln) 40 meq 1X ONCE PEG Last administered on 11:30; Start 04/01/17 at 11:15; Stop 04/01/17 at 11:16; Status DC Insulin Aspart (NovoLOG) 0-9 UNITS TIDWMEALS SQ Last administered on 04/13/17 08:03; Start 04/01/17 at 12:00 Dextrose (Dextrose 50%-Water Syringe) 12.5 gm PRN Q15MIN PRN IV SEE COMMENTS; Start 04/01/17 at 11:15; Status UNV Insulin Detemir (Levemir) 10 units QHS SQ Last administered on 04/01/17 21:49 ; Start 04/01/17 at 21:00; Stop 04/02/17 at 08:18; Status DC Insulin Detemir (Levemir) 15 units QHS SQ Last administered on 04/02/17 21:21; Start 04/02/17 at 21:00; Stop 04/03/17 at 13:21; Status DC Insulin Aspart (NovoLOG) 5 units TIDAC SQ Last administered on 04/03/17 12:49; Start 04/02/17 at 11:30; Stop 04/03/17 at 13:21; Status DC Scopolamine (Transderm-Scop) 1 patch Q3DAYS TD Last administered on 04/11/17 09:47; Start 04/02/17 at 10:00 Insulin Aspart (NovoLOG) 7 units TIDAC SQ Last administered on 04/07/17 09:01; Start 04/03/17 at 16:30; Stop 04/07/17 at 12:49; Status DC Insulin Detemir (Levemir) 20 units QHS SQ Last administered on 04/04/17 20:53; Start 04/03/17 at 21:00; Stop 04/05/17 at 08:47; Status DC Atorvastatin Calcium (Lipitor) 40 mg QHS PO Last administered on 04/12/17 20: 15; Start 04/04/17 at 21:00 Insulin Detemir (Levemir) 22 units QHS SQ ; Start 04/05/17 at 21:00; Stop at 21:00; Status DC Insulin Detemir (Levemir) 25 units QHS SQ Last administered on 04/11/17 20:56 ; Start 04/05/17 at 21:00 Iohexol (Omnipaque 240 Mg/ml) 50 ml 1X ONCE PO Last administered on 04/06/17 11:45; Start 04/06/17 at 11:45; Stop 04/06/17 at 11:46; Status DC Iohexol (Omnipaque 300 Mg/ml) 60 ml 1X ONCE IV Last administered on 04/06/17 13:29; Start 04/06/17 at 11:45; Stop 04/06/17 at 11:46; Status DC Info (Do NOT chart on this entry -- for MONITORING) 1 each PRN DAILY PRN MC SEE COMMENTS; Start 04/06/17 at 11:45; Stop 04/08/17 at 11:44; Status DC Iohexol (Omnipaque 300 Mg/ml) 75 ml STK-MED ONCE .ROUTE ; Start 04/06/17 at 15:05 ; Stop 04/06/17 at 15:06; Status DC Iohexol (Omnipaque 240 Mg/ml) 50 ml STK-MED ONCE .ROUTE ; Start 04/06/17 at 15:06 ; Stop 04/06/17 at 15:07; Status DC Metronidazole 100 ml @ 100 mls/hr Q8HRS IV Last administered on 04/06/17 21:49 ; Start 04/06/17 at 22:00; Stop 04/07/17 at 06:02; Status DC Metronidazole (Flagyl) 500 mg Q8HRS NG Last administered on 04/13/17 13:22; Start 04/07/17 at 06:30 Insulin Aspart (NovoLOG) 8 units TIDAC SQ Last administered on 04/13/17 11:30 ; Start 04/07/17 at 16:30 Albuterol Sulfate (Ventolin Neb Soln) 2.5 mg PRN Q4HRS PRN NEB WHEEZING; Start 04/09/17 at 04:30 Albuterol/ Ipratropium (Duoneb) 3 ml RTBID NEB Last administered on 04/13/17 07:38; Start 04/09/17 at 08:00 Zinc Acetate/ Diphenhydramine (Benadryl Topical) 1 jonn TID TP Last administered on 04/13/17 13:26; Start 04/10/17 at 15:00 Dextrose/Sodium Chloride 1,000 ml @ 50 mls/hr Q20H IV Last administered on 07:58; Start 04/10/17 at 19:45 Metoclopramide HCl (Reglan) 5 mg 1X ONCE IV Last administered on 04/11/17 15: 43; Start 04/11/17 at 15:45; Stop 04/11/17 at 15:46; Status DC Lidocaine (Lidoderm) 1 patch DAILY TD Last administered on 04/11/17 16:55; Start 04/11/17 at 16:30; Stop 04/12/17 at 07:53; Status DC Lidocaine (Lidoderm) 1 patch DAILY16 TD Last administered on 9/12/17at 13:21; Start 04/12/17 at 16:00 Active Scripts Active Transderm-Scop (Scopolamine) 1 Each Patch.td72 1 Patch TD Q3DAYS 30 Days Flagyl (Metronidazole) 500 Mg Tablet 500 Mg NG Q8HRS 14 Days Levemir Flextouch (Insulin Detemir) 100 Unit/1 Ml Insuln.pen 25 Units SQ QHS 30 Days Novolog Flexpen (Insulin Aspart) 100 Unit/1 Ml Insuln.pen 7 Units SQ TIDAC 30 Days Atorvastatin Calcium 40 Mg Tablet 40 Mg PO QHS 30 Days Aspirin Ec (Aspirin) 325 Mg Tablet. 325 Mg PO DAILYWBKFT 30 Days Reported Atorvastatin Calcium 40 Mg Tablet 1 Tab PO DAILY Vitals/I & O Vital Sign - Last 24 Hours 04/12/17 04/12/17 04/12/17 04/12/17 17:02 19:10 19:10 19:25 Temp 98.4 98.4 Pulse 61 Resp 20 B/P (MAP) 134/53 (80) Pulse Ox 96 97 61 93 O2 Delivery Room Air Room Air Room Air Room Air 04/12/17 04/12/17 04/12/17 04/12/17 20:00 20:16 22:18 23:10 Temp 97.7 97.7 Pulse 60 Resp 18 B/P (MAP) 139/67 (91) Pulse Ox 93 O2 Delivery Room Air Room Air Room Air O2 Flow Rate 2.0 04/13/17 04/13/17 04/13/17 04/13/17 03:10 07:28 07:39 08:00 Temp 97.9 98.0 97.9 98.0 Pulse 62 61 Resp 18 18 B/P (MAP) 135/66 (89) 155/72 (99) Pulse Ox 96 95 96 O2 Delivery Room Air Room Air Room Air Room Air 04/13/17 04/13/17 04/13/17 04/13/17 10:22 10:24 10:47 14:47 Temp 98.4 98.1 98.4 98.1 Pulse 72 62 Resp 16 17 B/P (MAP) 159/81 (107) 167/75 (105) Pulse Ox 95 96 O2 Delivery Room Air Room Air Room Air Room Air Intake and Output 04/13/17 04/13/17 04/14/17 15:00 23:00 07:00 Intake Total 265 ml Balance 265 ml LESLEE FORRESTER MD Apr 13, 2017 15:16
[2017-04-13] MEDS: ACETAMINOPHEN 650 MG/20.3 ML SOLUTION. PEG PRN (15:20)
--- NOTE | 2017-04-13 16:41 | PDOC ---
PROGRESS NOTES Assessment Assessment Subacute right BG, goldsmith radiata and right hemisphere infracts. Metabolic encephalopathy. Left side hemiplegia. 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 DM HTN HLD Obesity. UTI RECOMMENDATIONS/PLAN: Continue ASA 325 mg daily. Continue Lipitor HS. Vascular Surgery consulted but no indication for surgical intervention. OT/PT Rehab. Discussed with her family again at bedside on 04/13/17. Past Medical History Cardiovascular: HTN CENTRAL NERVOUS SYSTEM: Other (headaches) GI: Other (she has been having some abdominal pain) Endocrine: Diabetes Past Surgical History Family History Hypertension Social History , used to smoke and uses alcohol but none in the last several years. ALLERGY: Reviewed. MEDICATIONS: Refer to MAR REVIEW OF SYSTEMS: Constitutional: No malnutrition, weight loss, cachexia. Head: No traumatic brain or head injury. Skin: No edema, or rash. Ear: No infection. Eyes: No vision loss, or diplopia. Nose: No bleeding or purulent discharges. Hearing: No hearing decrease. Neck: No injury. Breast: No history of cancer, masses, or discharges. Cardiac: HTN, HLD Pulmonary: No CPOD. GI: No GI Ulcer, GI bleeding Urinary/genital: UTI. Endocrine: Diabetes Mellitus, obesity. Skeletomuscular: No muscular atrophy, deformity. Neurological: see HP. Psychiatric: Denies drug use/abuse. Otherwise, not [id number] review of systems. PHYSICAL EXAMINATION: General appearance in subacute distress. HEENT: Normocephalic and nontraumatic. Eyes, nose, ears, and throat are unremarkable. Neck is supple. No lymphadenopathy. No No Crepitus. Cardiovascular: S1, S2, regular rate and rhythm. Pulmonary: No rails heard to auscultation bilaterally. Abdomen: Bowel sounds are positive. Extremities: No rash, lesions, or edema. NEUROLOGICAL EXAMINATION: Awake. Sitting in chair. Able to follow a few commands with help of her son. Not oriented to time, place but knows her family members. PERRL. EOMI but slow. Gaze deviation to right side. CN: left VII palsy. Muscle tone: Decreased in left UE and LE, within normal in right side. Muscle strength: 0-1 left UE, 2 left LE, 5- right side. DTR: 1+ Left UE and LE Plantar reflex: left side extensor response, right side neutral response. Gait: Unable to walk. Sensory exam: decreased in left UE and LE. No acute cerebellar signs elicited. F-T-N test fine in right hand.. Objective Objective Vital Signs Date Time Temp Pulse Resp B/P (MAP) Pulse Ox O2 Delivery O2 Flow Rate FiO2 04/13/17 14:47 98.1 62 17 167/75 (105) 96 Room Air 98.1 04/12/17 22:18 2.0 Intake and Output 04/14/17 07:00 Intake Total 390 ml Balance 390 ml Intake Oral 0 ml Tube Feeding 390 ml # Voids 6 Vitals Signs Vitals VS - Last 72 Hours, by Label Date Time Temp Pulse Resp B/P (MAP) Pulse Ox O2 Delivery O2 Flow Rate FiO2 04/13/17 14:47 98.1 62 17 167/75 (105) 96 Room Air 98.1 04/13/17 10:47 Room Air 04/13/17 10:24 98.4 72 16 159/81 (107) 95 Room Air 98.4 04/13/17 10:22 Room Air 04/13/17 08:00 Room Air 04/13/17 07:39 96 Room Air 04/13/17 07:28 98.0 61 18 155/72 (99) 95 Room Air 98.0 04/13/17 03:10 97.9 62 18 135/66 (89) 96 Room Air 97.9 04/12/17 23:10 97.7 60 18 139/67 (91) 93 Room Air 97.7 04/12/17 22:18 2.0 04/12/17 20:16 Room Air 04/12/17 20:00 Room Air 04/12/17 19:25 93 Room Air 04/12/17 19:10 98.4 61 20 134/53 (80) 61 Room Air 98.4 04/12/17 19:10 97 Room Air 04/12/17 17:02 96 Room Air 04/12/17 14:37 97.9 61 18 157/94 (115) 94 Room Air 97.9 04/12/17 11:26 98.1 64 20 123/75 (91) 98 Room Air 98.1 04/12/17 09:38 Room Air 04/12/17 08:28 96 Room Air 04/12/17 08:08 98.2 60 14 148/97 (114) 95 Room Air 98.2 04/12/17 08:00 Room Air 04/12/17 07:10 97.9 59 17 186/86 (119) 95 Room Air 97.9 Laboratory Laboratory Laboratory Tests Test 04/12/17 17:04 04/12/17 21:23 04/13/17 04:10 04/13/17 07:23 Glucose (Fingerstick) 110 mg/dL (70-99) 142 mg/dL (70-99) 196 mg/dL (70-99) White Blood Count 10.2 x10^3/uL (4.0-11.0) Red Blood Count 4.28 x10^6/uL (3.50-5.40) Hemoglobin 13.0 g/dL (12.0-15.5) Hematocrit 38.6 % (36.0-47.0) Mean Corpuscular Volume 90 fL (79-100) Mean Corpuscular Hemoglobin 30 pg (25-35) Mean Corpuscular Hemoglobin Concent 34 g/dL (31-37) Red Cell Distribution Width 12.5 % (11.5-14.5) Platelet Count 414 x10^3/uL (140-400) Neutrophils (%) (Auto) 63 % (31-73) Lymphocytes (%) (Auto) 22 % (24-48) Monocytes (%) (Auto) 8 % (0-9) Eosinophils (%) (Auto) 5 % (0-3) Basophils (%) (Auto) 2 % (0-3) Neutrophils # (Auto) 6.5 x10^3uL (1.8-7.7) Lymphocytes # (Auto) 2.3 x10^3/uL (1.0-4.8) Monocytes # (Auto) 0.8 x10^3/uL (0.0-1.1) Eosinophils # (Auto) 0.5 x10^3/uL (0.0-0.7) Basophils # (Auto) 0.2 x10^3/uL (0.0-0.2) Sodium Level 138 mmol/L (136-145) Potassium Level 3.6 mmol/L (3.5-5.1) Chloride Level 103 mmol/L (98-107) Carbon Dioxide Level 28 mmol/L (21-32) Anion Gap 7 (6-14) Blood Urea Nitrogen 17 mg/dL (7-20) Creatinine 0.9 mg/dL (0.6-1.0) Estimated GFR (Cockcroft-Gault) 62.3 Glucose Level 205 mg/dL (70-99) Calcium Level 8.2 mg/dL (8.5-10.1) Magnesium Level 2.3 mg/dL (1.8-2.4) Test 04/13/17 11:19 Glucose (Fingerstick) 143 mg/dL (70-99) Microbiology 04/03/17 Blood Culture - Final, Complete NO GROWTH AFTER 5 DAYS Comment Review of Relevant I have reviewed the following items tamie (where applicable) has been applied. REEMA CARTER MD Apr 13, 2017 16:41
[2017-04-13 19:10] VITALS: BP 175/83
[2017-04-13] MEDS: INSULIN DETEMIR 300 UNITS/3 ML INSULN.PEN. SQ SCH (21:00)
[2017-04-13] MEDS: ATORVASTATIN CALCIUM 40 MG TABLET. PO SCH (21:54)
[2017-04-13 23:10] VITALS: BP 158/77
[2017-04-14 03:10] VITALS: BP 157/87
[2017-04-14] MEDS: IV DEXTROSE 5 %-0.45 % NACL 1,000 ML IV SCH (04:08)
[2017-04-14] MEDS: metroNIDAZOLE 500 MG TABLET NG SCH ×3 (05:01→22:38)
[2017-04-14 07:15] VITALS: BP 181/92
[2017-04-14] MEDS: INSULIN ASPART 300 UNITS/3 ML INSULN.PEN SQ SCH ×6 (07:30→17:00)
[2017-04-14] MEDS: IPRATRPIUM/ALBUTEROL 0.5/2.5MG 3 ML NEBU. NEB SCH ×2 (07:40→19:22)
[2017-04-14] MEDS: DOCUSATE SODIUM 100 MG CAPSULE. PO SCH ×2 (09:00→21:00)
[2017-04-14] MEDS: ASPIRIN ENTERIC COATED 325 MG TABLET.DR. PO SCH (09:19)
[2017-04-14] MEDS: DIPHENHYDRAMINE/ZINC ACETATE 2%/0.1% TOPICAL CREAM 28GM TUBE. TP SCH ×3 (09:19→22:38)
[2017-04-14] MEDS: SENNOSIDES/DOCUSATE 8.6/50MG TABLET. PO SCH ×2 (09:19→22:38)
[2017-04-14] MEDS: LIDOCAINE (700MG/PATCH) PATCH. TD SCH (09:22)
[2017-04-14] MEDS: SCOPOLAMINE 1.5MG PATCH. TD SCH (09:22)
--- NOTE | 2017-04-14 09:57 | PDOC ---
PROGRESS NOTES Chief Complaint Chief Complaint CVA with left sided weakness ASSESSMENT AND PLAN: 1. CVA: dense L hemiplegia. needs rehab 2. HTN: currently well controlled 3. HLD: on statin 4. DM2: currently well controlled; less so at home with HgbA1c 7.9. cont levemir, ISS 5. Leukocytosis: stable, persisting. check bcr/abl to r/o CML 6. Hypokalemia: resolved 7. neurogenic dysphagia with PEG: cont glucerna ATC. rpt swallow eval confirmed dysphagia/NPO 8. C.diff colitis: on flagyl tid (since 04/11) 9. TRAN/Neck pain: treat symptomatically (tylenol,heating pad PRN) 10. Dispo: needs rehab. language and insurance barriers History of Present Illness History of Present Illness c/o pain around PEG. mild L sided TRAN Vitals Vitals Vital Signs Date Time Temp Pulse Resp B/P (MAP) Pulse Ox O2 Delivery O2 Flow Rate FiO2 04/14/17 07:40 96 Room Air 04/14/17 07:15 98.2 70 16 181/92 (121) 98.2 04/13/17 20:00 2.0 Physical Exam General: Alert, Cooperative, No acute distress, Other (arousable and following commands) Heart: Regular rate Lungs: Clear Abdomen: Normal bowel sounds, Soft, No tenderness, Other (PEG site C/D/I) Extremities: No clubbing, No cyanosis, No edema, Other (left arm paralyzed, left leg can move a little bit) Skin: No rashes, No breakdown Labs LABS Laboratory Tests Test 04/13/17 11:19 04/13/17 16:37 04/13/17 21:10 04/14/17 07:10 Glucose (Fingerstick) 143 mg/dL (70-99) 154 mg/dL (70-99) 122 mg/dL (70-99) 209 mg/dL (70-99) LESLEE FORRESTER MD Apr 14, 2017 09:56
[2017-04-14 10:39] VITALS: BP 151/64
[2017-04-14] MEDS: ACETAMINOPHEN 650 MG/20.3 ML SOLUTION. PEG PRN (12:08)
[2017-04-14 15:00] VITALS: BP 132/76
--- NOTE | 2017-04-14 17:28 | PDOC ---
PROGRESS NOTES Assessment Assessment Subacute right BG, goldsmith radiata and right hemisphere infracts. Metabolic encephalopathy. Left side hemiplegia. 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 DM HTN HLD Obesity. UTI RECOMMENDATIONS/PLAN: Continue ASA 325 mg daily. Continue Lipitor HS. Vascular Surgery consulted but no indication for surgical intervention. OT/PT Rehab. Discussed with her family again at bedside on 04/14/17. Past Medical History Cardiovascular: HTN CENTRAL NERVOUS SYSTEM: Other (headaches) GI: Other (she has been having some abdominal pain) Endocrine: Diabetes Past Surgical History Family History Hypertension Social History , used to smoke and uses alcohol but none in the last several years. ALLERGY: Reviewed. MEDICATIONS: Refer to MAR REVIEW OF SYSTEMS: Constitutional: No malnutrition, weight loss, cachexia. Head: No traumatic brain or head injury. Skin: No edema, or rash. Ear: No infection. Eyes: No vision loss, or diplopia. Nose: No bleeding or purulent discharges. Hearing: No hearing decrease. Neck: No injury. Breast: No history of cancer, masses, or discharges. Cardiac: HTN, HLD Pulmonary: No CPOD. GI: No GI Ulcer, GI bleeding Urinary/genital: UTI. Endocrine: Diabetes Mellitus, obesity. Skeletomuscular: No muscular atrophy, deformity. Neurological: see HP. Psychiatric: Denies drug use/abuse. Otherwise, not [id number] review of systems. PHYSICAL EXAMINATION: General appearance in subacute distress. HEENT: Normocephalic and nontraumatic. Eyes, nose, ears, and throat are unremarkable. Neck is supple. No lymphadenopathy. No No Crepitus. Cardiovascular: S1, S2, regular rate and rhythm. Pulmonary: No rails heard to auscultation bilaterally. Abdomen: Bowel sounds are positive. Extremities: No rash, lesions, or edema. NEUROLOGICAL EXAMINATION: Awake. Able to follow some commands with help of her grand daughter.. Not oriented to time, place but knows her family members. PERRL. EOMI but slow. Gaze deviation to right side. CN: left VII palsy. Muscle tone: Decreased in left UE and LE, within normal in right side. Muscle strength: 0-1 left UE, 1-2 left LE, 5- right side. DTR: 1+ Left UE and LE Plantar reflex: left side extensor response, right side neutral response. Gait: Unable to walk. Sensory exam: decreased in left UE and LE. No acute cerebellar signs elicited. F-T-N test fine in right hand. Objective Objective Vital Signs Date Time Temp Pulse Resp B/P (MAP) Pulse Ox O2 Delivery O2 Flow Rate FiO2 04/14/17 15:00 98.2 63 16 132/76 (94) 95 Room Air 98.2 04/14/17 08:00 2.0 Intake and Output 04/15/17 07:00 Intake Total 360 ml Balance 360 ml Intake Oral 0 ml Tube Feeding 360 ml # Voids 4 Vitals Signs Vitals VS - Last 72 Hours, by Label Date Time Temp Pulse Resp B/P (MAP) Pulse Ox O2 Delivery O2 Flow Rate FiO2 04/14/17 15:00 98.2 63 16 132/76 (94) 95 Room Air 98.2 04/14/17 10:39 98.2 67 16 151/64 (93) 95 Room Air 98.2 04/14/17 08:00 Room Air 2.0 04/14/17 07:40 96 Room Air 04/14/17 07:15 98.2 70 16 181/92 (121) 95 Room Air 98.2 04/14/17 03:10 98.5 77 18 157/87 (110) 95 Room Air 98.5 04/14/17 03:10 98.5 77 18 157/87 (110) 95 Room Air 98.5 04/13/17 23:10 98.2 69 18 158/77 (104) 93 Room Air 98.2 04/13/17 20:00 Room Air 2.0 04/13/17 19:49 Room Air 04/13/17 19:10 98.2 65 20 175/83 (113) 96 Room Air 98.2 04/13/17 14:47 98.1 62 17 167/75 (105) 96 Room Air 98.1 04/13/17 10:47 Room Air 04/13/17 10:24 98.4 72 16 159/81 (107) 95 Room Air 98.4 04/13/17 10:22 Room Air 04/13/17 08:00 Room Air 04/13/17 07:39 96 Room Air 04/13/17 07:28 98.0 61 18 155/72 (99) 95 Room Air 98.0 Laboratory Laboratory Laboratory Tests Test 04/13/17 21:10 04/14/17 07:10 04/14/17 11:17 04/14/17 17:15 Glucose (Fingerstick) 122 mg/dL (70-99) 209 mg/dL (70-99) 192 mg/dL (70-99) 80 mg/dL (70-99) Microbiology 04/03/17 Blood Culture - Final, Complete NO GROWTH AFTER 5 DAYS Comment Review of Relevant I have reviewed the following items tamie (where applicable) has been applied. REEMA CARTER MD Apr 14, 2017 17:28
[2017-04-14 19:39] VITALS: BP 116/85
[2017-04-14] MEDS: ATORVASTATIN CALCIUM 40 MG TABLET. PO SCH (22:38)
[2017-04-14] MEDS: INSULIN DETEMIR 300 UNITS/3 ML INSULN.PEN. SQ SCH (22:49)
[2017-04-14 23:31] VITALS: BP 155/78
[2017-04-15] MEDS: IV DEXTROSE 5 %-0.45 % NACL 1,000 ML IV SCH ×2 (03:11→23:03)
[2017-04-15 03:58] VITALS: BP 169/79
[2017-04-15] MEDS: metroNIDAZOLE 500 MG TABLET NG SCH ×3 (05:54→20:50)
[2017-04-15 07:00] VITALS: BP 193/83
[2017-04-15] MEDS: INSULIN ASPART 300 UNITS/3 ML INSULN.PEN SQ SCH ×5 (07:30→18:00)
[2017-04-15] MEDS: DIPHENHYDRAMINE/ZINC ACETATE 2%/0.1% TOPICAL CREAM 28GM TUBE. TP SCH ×3 (08:00→21:07)
[2017-04-15] MEDS: ASPIRIN ENTERIC COATED 325 MG TABLET.DR. PO SCH (08:00)
[2017-04-15] MEDS: SENNOSIDES/DOCUSATE 8.6/50MG TABLET. PO SCH ×2 (08:00→20:50)
[2017-04-15] MEDS: DOCUSATE SODIUM 100 MG CAPSULE. PO SCH ×2 (08:00→20:50)
[2017-04-15] MEDS: IPRATRPIUM/ALBUTEROL 0.5/2.5MG 3 ML NEBU. NEB SCH ×2 (08:19→19:13)
[2017-04-15 11:00] VITALS: BP 158/93
[2017-04-15] MEDS: MORPHINE SULFATE 2 MG/ML DISP.SYRIN. IV PRN ×2 (13:48→20:51)
[2017-04-15] MEDS: LIDOCAINE (700MG/PATCH) PATCH. TD SCH (16:00)
--- NOTE | 2017-04-15 16:00 | PDOC ---
PROGRESS NOTES Assessment Assessment Subacute right BG, goldsmith radiata and right hemisphere infracts. Metabolic encephalopathy. Left side hemiplegia. 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 DM HTN HLD Obesity. UTI RECOMMENDATIONS/PLAN: Continue ASA 325 mg daily. Continue Lipitor HS. Vascular Surgery consulted but no indication for surgical intervention. OT/PT Rehab. Discussed with her family again at bedside on 04/15/17. Past Medical History Cardiovascular: HTN CENTRAL NERVOUS SYSTEM: Other (headaches) GI: Other (she has been having some abdominal pain) Endocrine: Diabetes Past Surgical History Family History Hypertension Social History , used to smoke and uses alcohol but none in the last several years. ALLERGY: Reviewed. MEDICATIONS: Refer to MAR REVIEW OF SYSTEMS: Constitutional: No malnutrition, weight loss, cachexia. Head: No traumatic brain or head injury. Skin: No edema, or rash. Ear: No infection. Eyes: No vision loss, or diplopia. Nose: No bleeding or purulent discharges. Hearing: No hearing decrease. Neck: No injury. Breast: No history of cancer, masses, or discharges. Cardiac: HTN, HLD Pulmonary: No CPOD. GI: No GI Ulcer, GI bleeding Urinary/genital: UTI. Endocrine: Diabetes Mellitus, obesity. Skeletomuscular: No muscular atrophy, deformity. Neurological: see HP. Psychiatric: Denies drug use/abuse. Otherwise, not [id number] review of systems. PHYSICAL EXAMINATION: General appearance in subacute distress. HEENT: Normocephalic and nontraumatic. Eyes, nose, ears, and throat are unremarkable. Neck is supple. No lymphadenopathy. No No Crepitus. Cardiovascular: S1, S2, regular rate and rhythm. Pulmonary: No rails heard to auscultation bilaterally. Abdomen: Bowel sounds are positive. Extremities: No rash, lesions, or edema. NEUROLOGICAL EXAMINATION: Awake. Able to follow some commands with help of her grand daughter.. Not oriented to time, place but knows her family members. PERRL. EOMI but slow. Gaze deviation to right side. CN: left VII palsy. Muscle tone: Decreased in left UE and LE but mild joint contractures shown, within normal in right side. Muscle strength: 0-1 left UE, 1-2 left LE, 5- right side. DTR: 1+ Left UE and LE Plantar reflex: left side extensor response, right side neutral response. Gait: Unable to walk. Sensory exam: decreased in left UE and LE. No acute cerebellar signs elicited. F-T-N test fine in right hand. Objective Objective Vital Signs Date Time Temp Pulse Resp B/P (MAP) Pulse Ox O2 Delivery O2 Flow Rate FiO2 04/15/17 14:18 14 96 Room Air 2.0 04/15/17 11:00 98.5 63 158/93 (114) 98.5 Intake and Output 04/16/17 07:00 Intake Total 285 ml Balance 285 ml Tube Feeding 285 ml Vitals Signs Vitals VS - Last 72 Hours, by Label Date Time Temp Pulse Resp B/P (MAP) Pulse Ox O2 Delivery O2 Flow Rate FiO2 04/15/17 14:18 14 96 Room Air 2.0 04/15/17 13:48 16 96 Room Air 2.0 04/15/17 11:00 98.5 63 20 158/93 (114) 96 Room Air 98.5 04/15/17 08:20 94 Room Air 04/15/17 08:00 Room Air 2.0 04/15/17 07:00 98.4 58 20 193/83 (119) 94 Room Air 98.4 04/15/17 03:58 98.4 74 16 169/79 (109) 95 Room Air 98.4 04/14/17 23:31 98.5 74 16 155/78 (103) 93 Room Air 98.5 04/14/17 20:00 Room Air 04/14/17 19:39 98.4 61 16 116/85 (95) 95 Room Air 98.4 04/14/17 19:23 95 Room Air 04/14/17 15:00 98.2 63 16 132/76 (94) 95 Room Air 98.2 04/14/17 10:39 98.2 67 16 151/64 (93) 95 Room Air 98.2 04/14/17 08:00 Room Air 2.0 04/14/17 07:40 96 Room Air 04/14/17 07:15 98.2 70 16 181/92 (121) 95 Room Air 98.2 Laboratory Laboratory Laboratory Tests Test 04/14/17 17:15 04/14/17 21:21 04/15/17 12:34 Glucose (Fingerstick) 80 mg/dL (70-99) 158 mg/dL (70-99) 144 mg/dL (70-99) Microbiology 04/03/17 Blood Culture - Final, Complete NO GROWTH AFTER 5 DAYS Medication Medications Current Medications Insulin Aspart (NovoLOG) 0-9 UNITS Q6HRS SQ ; Start 04/15/17 at 12:00 Insulin Aspart (NovoLOG) 8 units Q6HRS SQ ; Start 04/15/17 at 12:00 Comment Review of Relevant I have reviewed the following items tamie (where applicable) has been applied. REEMA CARTER MD Apr 15, 2017 16:00
--- NOTE | 2017-04-15 16:38 | PDOC ---
PROGRESS NOTES Chief Complaint Chief Complaint CVA with left sided weakness ASSESSMENT AND PLAN: 1. CVA: dense L hemiplegia. needs rehab 2. HTN: currently well controlled 3. HLD: on statin 4. DM2: currently well controlled; home HgbA1c 7.9. cont levemir, ISS 5. Leukocytosis: resolved 6. Hypokalemia: resolved 7. neurogenic dysphagia with PEG: cont glucerna ATC. rpt swallow eval confirmed dysphagia/NPO 8. C.diff colitis: on flagyl tid (since 04/11) 9. TRAN/Neck pain: treat symptomatically (tylenol,heating pad PRN) 10. Dispo: needs rehab. language and insurance barriers History of Present Illness History of Present Illness no c/o today Vitals Vitals Vital Signs Date Time Temp Pulse Resp B/P (MAP) Pulse Ox O2 Delivery O2 Flow Rate FiO2 04/15/17 14:18 14 96 Room Air 2.0 04/15/17 11:00 98.5 63 158/93 (114) 98.5 Physical Exam General: Alert, Cooperative, No acute distress, Other (arousable and following commands) Heart: Regular rate Lungs: Clear Abdomen: Normal bowel sounds, Soft, No tenderness, Other (PEG site C/D/I) Extremities: No clubbing, No cyanosis, No edema, Other (left arm paralyzed, left leg can move a little bit) Skin: No rashes, No breakdown Labs LABS Laboratory Tests Test 04/14/17 17:15 04/14/17 21:21 04/15/17 12:34 Glucose (Fingerstick) 80 mg/dL (70-99) 158 mg/dL (70-99) 144 mg/dL (70-99) LESLEE FORRESTER MD Apr 15, 2017 16:38
[2017-04-15 19:05] VITALS: BP 175/96
[2017-04-15] MEDS: ATORVASTATIN CALCIUM 40 MG TABLET. PO SCH (20:49)
[2017-04-15] MEDS: INSULIN DETEMIR 300 UNITS/3 ML INSULN.PEN. SQ SCH (20:54)
[2017-04-15 23:05] VITALS: BP 167/77
[2017-04-16 03:05] VITALS: BP 157/75
[2017-04-16] MEDS: INSULIN ASPART 300 UNITS/3 ML INSULN.PEN SQ SCH ×8 (06:00→18:00)
[2017-04-16] MEDS: metroNIDAZOLE 500 MG TABLET NG SCH ×3 (06:14→21:55)
[2017-04-16 07:00] VITALS: BP 162/84
[2017-04-16] MEDS: IPRATRPIUM/ALBUTEROL 0.5/2.5MG 3 ML NEBU. NEB SCH ×2 (07:01→20:41)
[2017-04-16] MEDS: ASPIRIN ENTERIC COATED 325 MG TABLET.DR. PO SCH (08:39)
[2017-04-16] MEDS: DOCUSATE SODIUM 100 MG CAPSULE. PO SCH ×2 (08:42→21:56)
[2017-04-16] MEDS: DIPHENHYDRAMINE/ZINC ACETATE 2%/0.1% TOPICAL CREAM 28GM TUBE. TP SCH ×3 (08:42→21:00)
[2017-04-16] MEDS: SENNOSIDES/DOCUSATE 8.6/50MG TABLET. PO SCH ×2 (08:42→21:55)
--- NOTE | 2017-04-16 14:22 | PDOC ---
PROGRESS NOTES Chief Complaint Chief Complaint CVA with left sided weakness ASSESSMENT AND PLAN: 1. CVA: dense L hemiplegia. needs rehab 2. HTN: currently well controlled 3. HLD: on statin 4. DM2: currently well controlled; home HgbA1c 7.9. cont levemir, ISS 5. Leukocytosis: resolved 6. Hypokalemia: resolved 7. neurogenic dysphagia with PEG: cont glucerna ATC. rpt swallow eval confirmed dysphagia/NPO 8. C.diff colitis: on flagyl tid (since 04/11) 9. TRAN/Neck pain: treat symptomatically (tylenol,heating pad PRN) 10. Dispo: needs rehab. language and insurance barriers History of Present Illness History of Present Illness UNCHANGED Vitals Vitals Vital Signs Date Time Temp Pulse Resp B/P (MAP) Pulse Ox O2 Delivery O2 Flow Rate FiO2 04/16/17 08:00 Room Air 04/16/17 07:01 99 04/16/17 07:00 98.2 74 18 162/84 (110) 98.2 04/15/17 14:18 2.0 Physical Exam General: Alert, Cooperative, No acute distress, Other (arousable and following commands) Heart: Regular rate Lungs: Clear Abdomen: Normal bowel sounds, Soft, No tenderness, Other (PEG site C/D/I) Extremities: No clubbing, No cyanosis, No edema, Other (L hemiparesis) Skin: No rashes Labs LABS Laboratory Tests Test 04/15/17 18:07 04/15/17 20:49 04/16/17 00:35 04/16/17 06:24 Glucose (Fingerstick) 159 mg/dL (70-99) 157 mg/dL (70-99) 154 mg/dL (70-99) 162 mg/dL (70-99) Test 04/16/17 08:38 04/16/17 12:12 Glucose (Fingerstick) 185 mg/dL (70-99) 193 mg/dL (70-99) LESLEE FORRESTER MD Apr 16, 2017 14:22
--- NOTE | 2017-04-16 14:23 | PDOC ---
PROGRESS NOTES Assessment Assessment Subacute right BG, goldsmith radiata and right hemisphere infracts. Metabolic encephalopathy. Left side hemiplegia. 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 DM HTN HLD Obesity. UTI RECOMMENDATIONS/PLAN: Continue ASA 325 mg daily. Continue Lipitor HS. Vascular Surgery consulted but no indication for surgical intervention. OT/PT Rehab, and replacement. Discussed with her son again at bedside on 04/16/17. Past Medical History Cardiovascular: HTN CENTRAL NERVOUS SYSTEM: Other (headaches) GI: Other (she has been having some abdominal pain) Endocrine: Diabetes Past Surgical History Family History Hypertension Social History , used to smoke and uses alcohol but none in the last several years. ALLERGY: Reviewed. MEDICATIONS: Refer to MAR REVIEW OF SYSTEMS: Constitutional: No malnutrition, weight loss, cachexia. Head: No traumatic brain or head injury. Skin: No edema, or rash. Ear: No infection. Eyes: No vision loss, or diplopia. Nose: No bleeding or purulent discharges. Hearing: No hearing decrease. Neck: No injury. Breast: No history of cancer, masses, or discharges. Cardiac: HTN, HLD Pulmonary: No COPD. GI: No GI Ulcer, GI bleeding Urinary/genital: UTI. Endocrine: Diabetes Mellitus, obesity. Skeletomuscular: No muscular atrophy, deformity. Neurological: see HP. Psychiatric: Denies drug use/abuse. Otherwise, not [id number] review of systems. PHYSICAL EXAMINATION: General appearance in subacute distress. HEENT: Normocephalic and nontraumatic. Eyes, nose, ears, and throat are unremarkable. Neck is supple. No lymphadenopathy. No No Crepitus. Cardiovascular: S1, S2, regular rate and rhythm. Pulmonary: No rails heard to auscultation bilaterally. Abdomen: Bowel sounds are positive. Extremities: No rash, lesions, or edema. NEUROLOGICAL EXAMINATION: Awake. Able to follow some commands with help of her son. Partially oriented to time, place but knows her family members. PERRL. EOMI but slow. Gaze deviation to right side. CN: left VII palsy. Muscle tone: Decreased in left UE and LE but mild joint contractures shown, within normal in right side. Muscle strength: 0-1 left UE, 1 left LE, 5- right side. DTR: 1+ Left UE and LE Plantar reflex: left side extensor response, right side neutral response. Gait: Unable to walk. Sensory exam: decreased in left UE and LE. No acute cerebellar signs elicited. F-T-N test fine in right hand. Objective Objective Vital Signs Date Time Temp Pulse Resp B/P (MAP) Pulse Ox O2 Delivery O2 Flow Rate FiO2 04/16/17 08:00 Room Air 04/16/17 07:01 99 04/16/17 07:00 98.2 74 18 162/84 (110) 98.2 04/15/17 14:18 2.0 Intake and Output 04/17/17 07:00 Intake Total 221 ml Balance 221 ml Tube Feeding 221 ml Vitals Signs Vitals VS - Last 72 Hours, by Label Date Time Temp Pulse Resp B/P (MAP) Pulse Ox O2 Delivery O2 Flow Rate FiO2 04/16/17 08:00 Room Air 04/16/17 07:01 99 Room Air 04/16/17 07:00 98.2 74 18 162/84 (110) 94 Room Air 98.2 04/16/17 03:05 98.0 61 18 157/75 (102) 96 Room Air 98.0 04/15/17 23:05 98.1 61 18 167/77 (107) 94 Room Air 98.1 04/15/17 20:51 16 Room Air 04/15/17 20:00 Room Air 04/15/17 19:14 94 Room Air 04/15/17 19:05 98.2 71 18 175/96 (122) 93 Room Air 98.2 04/15/17 14:18 14 96 Room Air 2.0 04/15/17 13:48 16 96 Room Air 2.0 04/15/17 11:00 98.5 63 20 158/93 (114) 96 Room Air 98.5 04/15/17 08:20 94 Room Air 04/15/17 08:00 Room Air 2.0 04/15/17 07:00 98.4 58 20 193/83 (119) 94 Room Air 98.4 Laboratory Laboratory Laboratory Tests Test 04/15/17 18:07 04/15/17 20:49 04/16/17 00:35 04/16/17 06:24 Glucose (Fingerstick) 159 mg/dL (70-99) 157 mg/dL (70-99) 154 mg/dL (70-99) 162 mg/dL (70-99) Test 04/16/17 08:38 04/16/17 12:12 Glucose (Fingerstick) 185 mg/dL (70-99) 193 mg/dL (70-99) Microbiology 04/03/17 Blood Culture - Final, Complete NO GROWTH AFTER 5 DAYS Comment Review of Relevant I have reviewed the following items tamie (where applicable) has been applied. REEMA CARTER MD Apr 16, 2017 14:23
[2017-04-16 15:00] VITALS: BP 181/79
[2017-04-16] MEDS: LIDOCAINE (700MG/PATCH) PATCH. TD SCH (15:44)
[2017-04-16 19:53] VITALS: BP 165/82
[2017-04-16] MEDS: IV DEXTROSE 5 %-0.45 % NACL 1,000 ML IV SCH (21:55)
[2017-04-16] MEDS: ATORVASTATIN CALCIUM 40 MG TABLET. PO SCH (21:56)
[2017-04-16] MEDS: INSULIN DETEMIR 300 UNITS/3 ML INSULN.PEN. SQ SCH (22:07)
[2017-04-16 23:35] VITALS: BP 123/74
[2017-04-17] MEDS: metroNIDAZOLE 500 MG TABLET NG SCH ×3 (05:38→21:10)
[2017-04-17] MEDS: INSULIN ASPART 300 UNITS/3 ML INSULN.PEN SQ SCH ×8 (05:50→18:00)
[2017-04-17 07:00] VITALS: BP 175/82
[2017-04-17] MEDS: DOCUSATE SODIUM 100 MG CAPSULE. PO SCH ×2 (09:45→21:10)
[2017-04-17] MEDS: SENNOSIDES/DOCUSATE 8.6/50MG TABLET. PO SCH ×2 (09:45→21:10)
[2017-04-17] MEDS: DIPHENHYDRAMINE/ZINC ACETATE 2%/0.1% TOPICAL CREAM 28GM TUBE. TP SCH ×3 (09:45→21:10)
[2017-04-17] MEDS: SCOPOLAMINE 1.5MG PATCH. TD SCH (09:45)
[2017-04-17] MEDS: ASPIRIN ENTERIC COATED 325 MG TABLET.DR. PO SCH (09:45)
[2017-04-17 11:00] VITALS: BP 179/83
[2017-04-17] MEDS: IPRATRPIUM/ALBUTEROL 0.5/2.5MG 3 ML NEBU. NEB SCH ×2 (11:24→19:50)
[2017-04-17] MEDS: IV DEXTROSE 5 %-0.45 % NACL 1,000 ML IV SCH (13:01)
--- NOTE | 2017-04-17 13:48 | PDOC ---
PROGRESS NOTES Chief Complaint Chief Complaint CVA with left sided weakness ASSESSMENT AND PLAN: 1. CVA: dense L hemiplegia. needs rehab 2. HTN: fluctuating control on PRNs. start NIDA-I. monitor 3. HLD: on statin 4. DM2: currently well controlled; home HgbA1c 7.9. cont levemir, ISS 5. Leukocytosis: resolved 6. Hypokalemia: resolved 7. neurogenic dysphagia with PEG: cont glucerna ATC. rpt swallow eval confirmed dysphagia/NPO 8. C.diff colitis: on flagyl tid (since 04/11) 9. TRAN/Neck pain: treat symptomatically (tylenol,heating pad PRN) 10. Dispo: needs rehab. language and insurance barriers History of Present Illness History of Present Illness family at bedside. no new issues Vitals Vitals Vital Signs Date Time Temp Pulse Resp B/P (MAP) Pulse Ox O2 Delivery O2 Flow Rate FiO2 04/17/17 11:25 99 Room Air 04/17/17 11:00 97.7 62 20 179/83 (115) 97.7 Physical Exam General: Alert, Cooperative, No acute distress, Other (arousable and following commands) Heart: Regular rate Lungs: Clear Abdomen: Normal bowel sounds, Soft, No tenderness, Other (PEG site C/D/I) Extremities: No clubbing, No cyanosis, No edema, Other (L hemiparesis) Skin: No rashes Labs LABS Laboratory Tests Test 04/16/17 19:15 04/16/17 23:27 04/17/17 05:33 04/17/17 11:30 Glucose (Fingerstick) 155 mg/dL (70-99) 165 mg/dL (70-99) 196 mg/dL (70-99) 168 mg/dL (70-99) LESLEE FORRESTER MD Apr 17, 2017 13:48
[2017-04-17] MEDS: LISINOPRIL 10 MG TABLET PO SCH (14:55)
[2017-04-17 15:00] VITALS: BP 114/57
[2017-04-17] MEDS: LIDOCAINE (700MG/PATCH) PATCH. TD SCH (17:58)
[2017-04-17 19:57] VITALS: BP 173/80
[2017-04-17] MEDS: ACETAMINOPHEN 650 MG/20.3 ML SOLUTION. PEG PRN (21:10)
[2017-04-17] MEDS: ATORVASTATIN CALCIUM 40 MG TABLET. PO SCH (21:10)
[2017-04-17] MEDS: INSULIN DETEMIR 300 UNITS/3 ML INSULN.PEN. SQ SCH (21:26)
[2017-04-17 23:48] VITALS: BP 173/81
[2017-04-18 03:00] VITALS: BP 172/83
[2017-04-18] MEDS: metroNIDAZOLE 500 MG TABLET NG SCH ×3 (05:31→21:13)
[2017-04-18] MEDS: INSULIN ASPART 300 UNITS/3 ML INSULN.PEN SQ SCH ×8 (05:37→17:27)
[2017-04-18 07:00] VITALS: BP 149/74
[2017-04-18] MEDS: IPRATRPIUM/ALBUTEROL 0.5/2.5MG 3 ML NEBU. NEB SCH ×2 (08:07→19:40)
[2017-04-18] MEDS: ASPIRIN ENTERIC COATED 325 MG TABLET.DR. PO SCH (09:29)
[2017-04-18] MEDS: SENNOSIDES/DOCUSATE 8.6/50MG TABLET. PO SCH ×2 (09:29→21:13)
[2017-04-18] MEDS: DOCUSATE SODIUM 100 MG CAPSULE. PO SCH ×2 (09:29→21:13)
[2017-04-18] MEDS: IV DEXTROSE 5 %-0.45 % NACL 1,000 ML IV SCH (09:29)
[2017-04-18] MEDS: LISINOPRIL 10 MG TABLET PO SCH (09:30)
[2017-04-18] MEDS: DIPHENHYDRAMINE/ZINC ACETATE 2%/0.1% TOPICAL CREAM 28GM TUBE. TP SCH ×3 (09:30→21:14)
--- NOTE | 2017-04-18 10:51 | PDOC ---
PROGRESS NOTES Chief Complaint Chief Complaint CVA with left sided weakness ASSESSMENT AND PLAN: 1. CVA: dense L hemiplegia. cont 2ary prevention meds (off BB 2/2 relative bradycardia). needs rehab 2. HTN: fluctuating control on PRNs. start NIDA-I. monitor 3. HLD: on statin 4. DM2: currently well controlled; home HgbA1c 7.9. cont levemir, ISS 5. Leukocytosis: resolved 6. Hypokalemia: resolved 7. neurogenic dysphagia with PEG: cont glucerna ATC. rpt swallow eval confirmed dysphagia/NPO 8. C.diff colitis: on flagyl tid (since 04/11) 9. TRAN/Neck pain: treat symptomatically (tylenol,heating pad PRN) 10. Dispo: needs rehab. language and insurance barriers History of Present Illness History of Present Illness denies pain. Vitals Vitals Vital Signs Date Time Temp Pulse Resp B/P (MAP) Pulse Ox O2 Delivery O2 Flow Rate FiO2 04/18/17 09:30 53 149/74 04/18/17 08:08 94 Room Air 04/18/17 07:00 98.3 20 98.3 Physical Exam General: Alert, Cooperative, No acute distress, Other (arousable and following commands) Heart: Regular rate Lungs: Clear Abdomen: Normal bowel sounds, Soft, No tenderness, Other (PEG site C/D/I) Extremities: No clubbing, No cyanosis, No edema, Other (L hemiparesis) Skin: No rashes Labs LABS Laboratory Tests Test 04/17/17 11:30 04/17/17 17:09 04/17/17 21:23 04/18/17 00:42 Glucose (Fingerstick) 168 mg/dL (70-99) 127 mg/dL (70-99) 99 mg/dL (70-99) 119 mg/dL (70-99) Test 04/18/17 05:30 Glucose (Fingerstick) 184 mg/dL (70-99) LESLEE FORRESTER MD Apr 18, 2017 10:51
[2017-04-18 11:00] VITALS: BP 130/72
[2017-04-18 15:00] VITALS: BP 144/49
[2017-04-18] MEDS: LIDOCAINE (700MG/PATCH) PATCH. TD SCH (17:30)
[2017-04-18 19:00] VITALS: BP 198/91
[2017-04-18] MEDS: ATORVASTATIN CALCIUM 40 MG TABLET. PO SCH (21:13)
[2017-04-18] MEDS: INSULIN DETEMIR 300 UNITS/3 ML INSULN.PEN. SQ SCH (21:26)
[2017-04-18 23:53] VITALS: BP 186/98
[2017-04-19 03:00] VITALS: BP 174/74
[2017-04-19] MEDS: IV DEXTROSE 5 %-0.45 % NACL 1,000 ML IV SCH ×2 (03:45→06:00)
[2017-04-19 05:03] LABS: BASO # 0.2 x10^3/uL (0.0-0.2); BASO % 2 % (0-3); EOS % 5 % (0-3); HEMATOCRIT 38.9 % (36.0-47.0); HEMOGLOBIN 13.2 g/dL (12.0-15.5); LYMPH # 2.1 x10^3/uL (1.0-4.8); LYMPH % 25 % (24-48); MEAN CORPUSCULAR HEMOGLOBIN 31 pg (25-35); MEAN CORPUSCULAR HGB CONC 34 g/dL (31-37); MEAN CORPUSCULAR VOLUME 90 fL (79-100); MONO % 7 % (0-9); NEUT % 62 % (31-73); PLATELET COUNT 341 x10^3/uL (140-400); RED BLOOD COUNT 4.31 x10^6/uL (3.50-5.40); RED CELL DISTRIBUTION WIDTH 13.2 % (11.5-14.5); WHITE BLOOD COUNT 8.5 x10^3/uL (4.0-11.0)
[2017-04-19 05:42] LABS: CALCIUM 8.7 mg/dL (8.5-10.1); CREATININE 0.9 mg/dL (0.6-1.0); GFR 62.3; MAGNESIUM 2.2 mg/dL (1.8-2.4); POTASSIUM 3.5 mmol/L (3.5-5.1)
[2017-04-19] MEDS: metroNIDAZOLE 500 MG TABLET NG SCH ×3 (06:00→22:38)
[2017-04-19] MEDS: INSULIN ASPART 300 UNITS/3 ML INSULN.PEN SQ SCH ×8 (06:00→18:00)
[2017-04-19 07:00] VITALS: BP 154/78
--- NOTE | 2017-04-19 07:43 | PDOC ---
PROGRESS NOTES Chief Complaint Chief Complaint CVA with left sided weakness ASSESSMENT AND PLAN: 1. CVA: dense L hemiplegia. cont 2ary prevention meds (off BB 2/2 relative bradycardia). needs rehab 2. HTN: fluctuating control on PRNs. increase lisinopril to 40 3. HLD: on statin 4. DM2: currently well controlled; home HgbA1c 7.9. cont levemir, ISS 5. Leukocytosis: resolved 6. Hypokalemia: resolved 7. neurogenic dysphagia with PEG: cont glucerna, switch to bolus fees 5x/d. rpt swallow eval confirmed dysphagia/NPO 8. C.diff colitis: on flagyl tid (since 04/07, stop 04/21) 9. TRAN/Neck pain: treat symptomatically (tylenol,heating pad PRN) 10. GERD: H2B, Tums 11. Constipation: no BM x5 days. increase senna Plus, dulcolax HI 12. Dispo: needs rehab. language and insurance barriers History of Present Illness History of Present Illness c/o stomach pain. per RN, no BM since 04/13 Vitals Vitals Vital Signs Date Time Temp Pulse Resp B/P (MAP) Pulse Ox O2 Delivery O2 Flow Rate FiO2 04/19/17 03:00 98.0 67 18 174/74 (107) 96 Room Air 98.0 Physical Exam General: Alert, Cooperative, No acute distress Heart: Regular rate Lungs: Clear Abdomen: Normal bowel sounds, Soft, No tenderness, Other (PEG site C/D/I) Extremities: No clubbing, No cyanosis, No edema, Other (L hemiparesis) Skin: No rashes Labs LABS Laboratory Tests Test 04/18/17 12:04 04/18/17 17:10 04/18/17 20:46 04/19/17 01:05 Glucose (Fingerstick) 185 mg/dL (70-99) 114 mg/dL (70-99) 97 mg/dL (70-99) 116 mg/dL (70-99) Test 04/19/17 03:56 04/19/17 06:00 White Blood Count 8.5 x10^3/uL (4.0-11.0) Red Blood Count 4.31 x10^6/uL (3.50-5.40) Hemoglobin 13.2 g/dL (12.0-15.5) Hematocrit 38.9 % (36.0-47.0) Mean Corpuscular Volume 90 fL (79-100) Mean Corpuscular Hemoglobin 31 pg (25-35) Mean Corpuscular Hemoglobin Concent 34 g/dL (31-37) Red Cell Distribution Width 13.2 % (11.5-14.5) Platelet Count 341 x10^3/uL (140-400) Neutrophils (%) (Auto) 62 % (31-73) Lymphocytes (%) (Auto) 25 % (24-48) Monocytes (%) (Auto) 7 % (0-9) Eosinophils (%) (Auto) 5 % (0-3) Basophils (%) (Auto) 2 % (0-3) Neutrophils # (Auto) 5.2 x10^3uL (1.8-7.7) Lymphocytes # (Auto) 2.1 x10^3/uL (1.0-4.8) Monocytes # (Auto) 0.6 x10^3/uL (0.0-1.1) Eosinophils # (Auto) 0.4 x10^3/uL (0.0-0.7) Basophils # (Auto) 0.2 x10^3/uL (0.0-0.2) Sodium Level 140 mmol/L (136-145) Potassium Level 3.5 mmol/L (3.5-5.1) Chloride Level 105 mmol/L (98-107) Carbon Dioxide Level 27 mmol/L (21-32) Anion Gap 8 (6-14) Blood Urea Nitrogen 14 mg/dL (7-20) Creatinine 0.9 mg/dL (0.6-1.0) Estimated GFR (Cockcroft-Gault) 62.3 Glucose Level 175 mg/dL (70-99) Calcium Level 8.7 mg/dL (8.5-10.1) Magnesium Level 2.2 mg/dL (1.8-2.4) Glucose (Fingerstick) 176 mg/dL (70-99) LESLEE FORRESTER MD Apr 19, 2017 07:43
[2017-04-19] MEDS: IPRATRPIUM/ALBUTEROL 0.5/2.5MG 3 ML NEBU. NEB SCH ×2 (08:12→19:47)
[2017-04-19] MEDS ORDERED: LISINOPRIL 20 MG TABLET PO SCH (09:00)
[2017-04-19] MEDS ORDERED: BISACODYL 10 MG SUPP.RECT. PR PRN (09:00)
[2017-04-19] MEDS: ACETAMINOPHEN 650 MG/20.3 ML SOLUTION. PEG PRN (10:16)
[2017-04-19] MEDS: ASPIRIN ENTERIC COATED 325 MG TABLET.DR. PO SCH (10:18)
[2017-04-19] MEDS: SENNOSIDES/DOCUSATE 8.6/50MG TABLET. PO SCH ×2 (10:20→21:00)
[2017-04-19] MEDS: LISINOPRIL 20 MG TABLET PO SCH (10:22)
[2017-04-19] MEDS: DIPHENHYDRAMINE/ZINC ACETATE 2%/0.1% TOPICAL CREAM 28GM TUBE. TP SCH ×3 (10:23→21:00)
[2017-04-19 10:55] VITALS: BP 151/82
--- NOTE | 2017-04-19 11:24 | PDOC ---
PROGRESS NOTES Assessment Problems Medical Problems: (1) CVA (cerebral vascular accident) Status: Acute Right BG, goldsmith radiata and right hemisphere infarcts. 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 DM HTN HLD Obesity. UTI Plan Continue ASA 325 mg daily. Continue Lipitor 40 mg HS. Vascular Surgery consulted and no indication for surgical intervention. OT/PT Rehab, May be difficult due to component of depression and with a right hemispheric stroke, there may be anosognosia. Discussed with her family Subjective No pain at present Objective Vital Signs Date Time Temp Pulse Resp B/P (MAP) Pulse Ox O2 Delivery O2 Flow Rate FiO2 04/19/17 10:55 98.3 70 20 151/82 (105) 93 Room Air 98.3 Intake and Output 04/20/17 07:00 Intake Total 476 ml Balance 476 ml Intake Oral 0 ml Tube Feeding 356 ml Blood Product IV Normal Saline Flush 120 ml PHYSICAL EXAM Alert. Speaks Syrian PERRL. EOMI. CN: Right gaze preference, left field cut, left central facial weakness Muscle tone: Increased on left Muscle strength: 1/5 left hemiplegia DTR: 2+ Plantar reflex: Extensor on left Gait: not examined in bed. Sensory exam: no abnormal findings. No cerebellar signs elicited. Review of Relevant I have reviewed the following items tamie (where applicable) has been applied. Labs Laboratory Tests Test 04/17/17 11:30 04/17/17 17:09 04/17/17 21:23 04/18/17 00:42 Glucose (Fingerstick) 168 mg/dL (70-99) 127 mg/dL (70-99) 99 mg/dL (70-99) 119 mg/dL (70-99) Test 04/18/17 05:30 04/18/17 12:04 04/18/17 17:10 04/18/17 20:46 Glucose (Fingerstick) 184 mg/dL (70-99) 185 mg/dL (70-99) 114 mg/dL (70-99) 97 mg/dL (70-99) Test 04/19/17 01:05 04/19/17 03:56 04/19/17 06:00 Glucose (Fingerstick) 116 mg/dL (70-99) 176 mg/dL (70-99) White Blood Count 8.5 x10^3/uL (4.0-11.0) Red Blood Count 4.31 x10^6/uL (3.50-5.40) Hemoglobin 13.2 g/dL (12.0-15.5) Hematocrit 38.9 % (36.0-47.0) Mean Corpuscular Volume 90 fL (79-100) Mean Corpuscular Hemoglobin 31 pg (25-35) Mean Corpuscular Hemoglobin Concent 34 g/dL (31-37) Red Cell Distribution Width 13.2 % (11.5-14.5) Platelet Count 341 x10^3/uL (140-400) Neutrophils (%) (Auto) 62 % (31-73) Lymphocytes (%) (Auto) 25 % (24-48) Monocytes (%) (Auto) 7 % (0-9) Eosinophils (%) (Auto) 5 % (0-3) Basophils (%) (Auto) 2 % (0-3) Neutrophils # (Auto) 5.2 x10^3uL (1.8-7.7) Lymphocytes # (Auto) 2.1 x10^3/uL (1.0-4.8) Monocytes # (Auto) 0.6 x10^3/uL (0.0-1.1) Eosinophils # (Auto) 0.4 x10^3/uL (0.0-0.7) Basophils # (Auto) 0.2 x10^3/uL (0.0-0.2) Sodium Level 140 mmol/L (136-145) Potassium Level 3.5 mmol/L (3.5-5.1) Chloride Level 105 mmol/L (98-107) Carbon Dioxide Level 27 mmol/L (21-32) Anion Gap 8 (6-14) Blood Urea Nitrogen 14 mg/dL (7-20) Creatinine 0.9 mg/dL (0.6-1.0) Estimated GFR (Cockcroft-Gault) 62.3 Glucose Level 175 mg/dL (70-99) Calcium Level 8.7 mg/dL (8.5-10.1) Magnesium Level 2.2 mg/dL (1.8-2.4) Laboratory Tests Test 04/18/17 12:04 04/18/17 17:10 04/18/17 20:46 04/19/17 01:05 Glucose (Fingerstick) 185 mg/dL (70-99) 114 mg/dL (70-99) 97 mg/dL (70-99) 116 mg/dL (70-99) Test 04/19/17 03:56 04/19/17 06:00 White Blood Count 8.5 x10^3/uL (4.0-11.0) Red Blood Count 4.31 x10^6/uL (3.50-5.40) Hemoglobin 13.2 g/dL (12.0-15.5) Hematocrit 38.9 % (36.0-47.0) Mean Corpuscular Volume 90 fL (79-100) Mean Corpuscular Hemoglobin 31 pg (25-35) Mean Corpuscular Hemoglobin Concent 34 g/dL (31-37) Red Cell Distribution Width 13.2 % (11.5-14.5) Platelet Count 341 x10^3/uL (140-400) Neutrophils (%) (Auto) 62 % (31-73) Lymphocytes (%) (Auto) 25 % (24-48) Monocytes (%) (Auto) 7 % (0-9) Eosinophils (%) (Auto) 5 % (0-3) Basophils (%) (Auto) 2 % (0-3) Neutrophils # (Auto) 5.2 x10^3uL (1.8-7.7) Lymphocytes # (Auto) 2.1 x10^3/uL (1.0-4.8) Monocytes # (Auto) 0.6 x10^3/uL (0.0-1.1) Eosinophils # (Auto) 0.4 x10^3/uL (0.0-0.7) Basophils # (Auto) 0.2 x10^3/uL (0.0-0.2) Sodium Level 140 mmol/L (136-145) Potassium Level 3.5 mmol/L (3.5-5.1) Chloride Level 105 mmol/L (98-107) Carbon Dioxide Level 27 mmol/L (21-32) Anion Gap 8 (6-14) Blood Urea Nitrogen 14 mg/dL (7-20) Creatinine 0.9 mg/dL (0.6-1.0) Estimated GFR (Cockcroft-Gault) 62.3 Glucose Level 175 mg/dL (70-99) Calcium Level 8.7 mg/dL (8.5-10.1) Magnesium Level 2.2 mg/dL (1.8-2.4) Glucose (Fingerstick) 176 mg/dL (70-99) Microbiology 04/03/17 Blood Culture - Final, Complete NO GROWTH AFTER 5 DAYS Medications Current Medications Insulin Aspart (NovoLOG) 0-5 UNITS TIDWMEALS SQ Last administered on 03/31/17 17:31; Start 03/24/17 at 17:00; Stop 04/01/17 at 09:20; Status DC Dextrose (Dextrose 50%-Water Syringe) 12.5 gm PRN Q15MIN PRN IV SEE COMMENTS; Start 03/24/17 at 12:30 Ceftriaxone Sodium 50 ml @ 100 mls/hr 1X ONCE IV Last administered on 13:33; Start 03/24/17 at 13:30; Stop 03/24/17 at 13:59; Status DC Ceftriaxone Sodium 1 gm/ Sodium Chloride 50 ml @ 100 mls/hr Q24H IV Last administered on 03/30/17 13:23; Start 03/25/17 at 14:00; Stop 03/31/17 at 14:28 ; Status DC Ondansetron HCl (Zofran) 4 mg PRN Q8HRS PRN IV NAUSEA/VOMITING; Start 03/24/17 at 13:30; Stop 03/25/17 at 13:29; Status DC Sodium Chloride 1,000 ml @ 125 mls/hr Q8H IV Last administered on 03/24/17 13 :37; Start 03/24/17 at 13:45; Stop 03/25/17 at 08:53; Status DC Aspirin (Aspirin) 300 mg 1X ONCE VA Last administered on 03/24/17 13:45; Start 03/24/17 at 13:45; Stop 03/24/17 at 13:46; Status DC Sodium Chloride (Normal Saline Flush) 3 ml QSHIFT PRN IV AFTER MEDS AND BLOOD DRAWS; Start 03/24/17 at 13:45 Sodium Chloride 1,000 ml @ 100 mls/hr Q10H IV Last administered on 03/25/17 01:22; Start 03/24/17 at 14:00; Stop 03/25/17 at 08:53; Status DC Aspirin (Ecotrin) 325 mg DAILYWBKFT PO Last administered on 04/19/17 10:18; Start 03/25/17 at 08:00 Atorvastatin Calcium (Lipitor) 20 mg QHS PO Last administered on 04/03/17 21:25 ; Start 03/24/17 at 21:00; Stop 04/04/17 at 14:01; Status DC Labetalol HCl (Normodyne) 10 mg PRN Q10MIN PRN IV HYPERTENSION, SEE COMMENTS Last administered on 03/25/17 20:08; Start 03/24/17 at 13:45 Acetaminophen (Tylenol) 650 mg PRN Q6HRS PRN PO FEVER; Start 03/24/17 at 13:45 ; Stop 03/29/17 at 21:13; Status DC Acetaminophen (Acetaminophen Supp) 650 mg PRN Q6HRS PRN VA FEVER Last administered on 03/28/17 21:42; Start 03/24/17 at 13:45; Stop 03/31/17 at 14:28 ; Status DC Enoxaparin Sodium (Lovenox 40mg Syringe) 40 mg Q24H SQ Last administered on 15:26; Start 03/24/17 at 15:00; Stop 03/29/17 at 08:44; Status DC Iohexol (Omnipaque 350 Mg/ml) 60 ml 1X ONCE IV Last administered on 03/24/17 16:25; Start 03/24/17 at 16:15; Stop 03/24/17 at 16:20; Status DC Info (Do NOT chart on this entry -- for MONITORING) 1 each PRN DAILY PRN MC SEE COMMENTS; Start 03/24/17 at 16:30; Stop 03/26/17 at 16:29; Status DC Ondansetron HCl (Zofran) 4 mg PRN Q6HRS PRN IV NAUSEA/VOMITING; Start 03/24/17 at 16:30 Amino Acids/ Glycerin/ Electrolytes 1,000 ml @ 80 mls/hr [id number] IV Last administered on 03/31/17 03:34; Start 03/25/17 at 09:30; Stop 03/31/17 at 12:13 ; Status DC Barium Sulfate (Varibar Thin Liquid Apple) 148 gm 1X ONCE PO Last administered on 03/26/17 13:30; Start 03/26/17 at 13:30; Stop 03/26/17 at 13:31 ; Status DC Ringer's Solution 1,000 ml @ 50 mls/hr Q20H IV ; Start 03/29/17 at 07:00; Stop 03/29/17 at 07:28; Status DC Diphenhydramine HCl (Benadryl) 25 mg PRN Q6HRS PRN IVP ITCHING Last administered on 04/07/17 21:23; Start 03/26/17 at 23:00 Potassium Chloride 50 ml @ 50 mls/hr Q1H IV ; Start 03/27/17 at 13:00; Stop at 14:59; Status UNV Potassium Chloride 100 ml @ 100 mls/hr Q1H IV Last administered on 03/27/17 19:45; Start 03/27/17 at 13:00; Stop 03/27/17 at 16:59; Status DC Ringer's Solution 1,000 ml @ 50 mls/hr Q20H IV ; Start 03/29/17 at 13:00; Stop 03/29/17 at 19:13; Status DC Midazolam HCl (Versed) 2 mg PRN 1X PRN IV PRIOR TO PROCEDURE; Start 03/29/17 at 12:15; Stop 03/29/17 at 15:49; Status DC Fentanyl Citrate (Fentanyl 2ml Vial) 25 mcg PRN Q5MIN PRN IV X 2 DOSES FOR PAIN ; Start 03/29/17 at 12:15; Stop 03/29/17 at 15:49; Status DC Fentanyl Citrate (Fentanyl 2ml Vial) 50 mcg PRN Q5MIN PRN IV X 2 DOSES FOR PAIN ; Start 03/29/17 at 12:15; Stop 03/29/17 at 15:49; Status DC Ringer's Solution 1,000 ml @ 125 mls/hr Q8H IV Last administered on 03/29/17 12:38; Start 03/29/17 at 12:07; Stop 03/29/17 at 17:31; Status DC Lidocaine HCl 2 ml 1X PRN PRN ID IV START; Start 03/29/17 at 12:15; Stop at 12:14; Status DC Propofol 20 ml @ As Directed STK-MED ONCE IV ; Start 03/29/17 at 12:29; Stop at 12:30; Status DC Morphine Sulfate 1 mg PRN Q2HR PRN IV PAIN Last administered on 04/15/17 20:51 ; Start 03/29/17 at 16:15; Stop 04/17/17 at 13:47; Status DC Morphine Sulfate 2 mg PRN Q2HR PRN IV PAIN Last administered on 04/03/17 02:41 ; Start 03/29/17 at 16:15; Stop 04/06/17 at 12:12; Status DC Acetaminophen (Tylenol) 650 mg PRN Q6HRS PRN PEG MILD PAIN / TEMP Last administered on 04/19/17 10:16; Start 03/29/17 at 21:15 Senna/Docusate Sodium (Senna Plus) 1 tab BID PO Last administered on 04/18/17 21:13; Start 03/31/17 at 21:00; Stop 04/19/17 at 09:09; Status DC Docusate Sodium (Colace) 100 mg BID PO Last administered on 04/18/17 21:13; Start 03/31/17 at 21:00; Stop 04/19/17 at 09:09; Status DC Magnesium Hydroxide (Milk Of Magnesia) 2,400 mg PRN Q12HR PRN PO CONSTIPATION Last administered on 04/11/17 12:58; Start 03/31/17 at 12:15 Potassium Chloride (KCl Oral Soln) 40 meq 1X ONCE PEG Last administered on 11:30; Start 04/01/17 at 11:15; Stop 04/01/17 at 11:16; Status DC Insulin Aspart (NovoLOG) 0-9 UNITS TIDWMEALS SQ Last administered on 04/14/17 12:00; Start 04/01/17 at 12:00; Stop 04/15/17 at 07:39; Status DC Dextrose (Dextrose 50%-Water Syringe) 12.5 gm PRN Q15MIN PRN IV SEE COMMENTS; Start 04/01/17 at 11:15; Status UNV Insulin Detemir (Levemir) 10 units QHS SQ Last administered on 04/01/17 21:49 ; Start 04/01/17 at 21:00; Stop 04/02/17 at 08:18; Status DC Insulin Detemir (Levemir) 15 units QHS SQ Last administered on 04/02/17 21:21; Start 04/02/17 at 21:00; Stop 04/03/17 at 13:21; Status DC Insulin Aspart (NovoLOG) 5 units TIDAC SQ Last administered on 04/03/17 12:49; Start 04/02/17 at 11:30; Stop 04/03/17 at 13:21; Status DC Scopolamine (Transderm-Scop) 1 patch Q3DAYS TD Last administered on 04/17/17 09:45; Start 04/02/17 at 10:00 Insulin Aspart (NovoLOG) 7 units TIDAC SQ Last administered on 04/07/17 09:01; Start 04/03/17 at 16:30; Stop 04/07/17 at 12:49; Status DC Insulin Detemir (Levemir) 20 units QHS SQ Last administered on 04/04/17 20:53; Start 04/03/17 at 21:00; Stop 04/05/17 at 08:47; Status DC Atorvastatin Calcium (Lipitor) 40 mg QHS PO Last administered on 04/18/17 21: 13; Start 04/04/17 at 21:00 Insulin Detemir (Levemir) 22 units QHS SQ ; Start 04/05/17 at 21:00; Stop at 21:00; Status DC Insulin Detemir (Levemir) 25 units QHS SQ Last administered on 04/18/17 21:26 ; Start 04/05/17 at 21:00 Iohexol (Omnipaque 240 Mg/ml) 50 ml 1X ONCE PO Last administered on 04/06/17 11:45; Start 04/06/17 at 11:45; Stop 04/06/17 at 11:46; Status DC Iohexol (Omnipaque 300 Mg/ml) 60 ml 1X ONCE IV Last administered on 04/06/17 13:29; Start 04/06/17 at 11:45; Stop 04/06/17 at 11:46; Status DC Info (Do NOT chart on this entry -- for MONITORING) 1 each PRN DAILY PRN MC SEE COMMENTS; Start 04/06/17 at 11:45; Stop 04/08/17 at 11:44; Status DC Iohexol (Omnipaque 300 Mg/ml) 75 ml STK-MED ONCE .ROUTE ; Start 04/06/17 at 15:05 ; Stop 04/06/17 at 15:06; Status DC Iohexol (Omnipaque 240 Mg/ml) 50 ml STK-MED ONCE .ROUTE ; Start 04/06/17 at 15:06 ; Stop 04/06/17 at 15:07; Status DC Metronidazole 100 ml @ 100 mls/hr Q8HRS IV Last administered on 04/06/17 21:49 ; Start 04/06/17 at 22:00; Stop 04/07/17 at 06:02; Status DC Metronidazole (Flagyl) 500 mg Q8HRS NG Last administered on 04/19/17 06:00; Start 04/07/17 at 06:30; Stop 04/21/17 at 06:30 Insulin Aspart (NovoLOG) 8 units TIDAC SQ Last administered on 04/15/17 07:30 ; Start 04/07/17 at 16:30; Stop 04/15/17 at 07:39; Status DC Albuterol Sulfate (Ventolin Neb Soln) 2.5 mg PRN Q4HRS PRN NEB WHEEZING; Start 04/09/17 at 04:30 Albuterol/ Ipratropium (Duoneb) 3 ml RTBID NEB Last administered on 04/19/17 08:12; Start 04/09/17 at 08:00 Zinc Acetate/ Diphenhydramine (Benadryl Topical) 1 jonn TID TP Last administered on 04/19/17 10:23; Start 04/10/17 at 15:00 Dextrose/Sodium Chloride 1,000 ml @ 50 mls/hr Q20H IV Last administered on 06:00; Start 04/10/17 at 19:45; Stop 04/19/17 at 08:47; Status DC Metoclopramide HCl (Reglan) 5 mg 1X ONCE IV Last administered on 04/11/17 15: 43; Start 04/11/17 at 15:45; Stop 04/11/17 at 15:46; Status DC Lidocaine (Lidoderm) 1 patch DAILY TD Last administered on 04/11/17 16:55; Start 04/11/17 at 16:30; Stop 04/12/17 at 07:53; Status DC Lidocaine (Lidoderm) 1 patch DAILY16 TD Last administered on 04/17/17 17:58; Start 04/12/17 at 16:00 Insulin Aspart (NovoLOG) 0-9 UNITS Q6HRS SQ Last administered on 04/18/17 13: 51; Start 04/15/17 at 12:00 Insulin Aspart (NovoLOG) 8 units Q6HRS SQ Last administered on 04/19/17 06:03 ; Start 04/15/17 at 12:00 Lisinopril (Prinivil) 10 mg DAILY PO Last administered on 04/18/17 09:30; Start 04/17/17 at 14:00; Stop 04/18/17 at 10:51; Status DC Lisinopril (Prinivil) 20 mg DAILY PO ; Start 04/19/17 at 09:00; Stop 04/19/17 at 09:00; Status DC Lisinopril (Prinivil) 40 mg DAILY PO Last administered on 04/19/17 10:22; Start 04/19/17 at 09:00 Senna/Docusate Sodium (Senna Plus) 2 tab BID PO Last administered on 04/19/17 10:20; Start 04/19/17 at 09:00 Bisacodyl (Dulcolax Supp) 10 mg PRN DAILY PRN [place] CONSTIPATION Last administered on 04/19/17 10:23; Start 04/19/17 at 09:00 Active Scripts Active Transderm-Scop (Scopolamine) 1 Each Patch.td72 1 Patch TD Q3DAYS 30 Days Flagyl (Metronidazole) 500 Mg Tablet 500 Mg NG Q8HRS 14 Days Levemir Flextouch (Insulin Detemir) 100 Unit/1 Ml Insuln.pen 25 Units SQ QHS 30 Days Novolog Flexpen (Insulin Aspart) 100 Unit/1 Ml Insuln.pen 7 Units SQ TIDAC 30 Days Atorvastatin Calcium 40 Mg Tablet 40 Mg PO QHS 30 Days Aspirin Ec (Aspirin) 325 Mg Tablet.dr 325 Mg PO DAILYWBKFT 30 Days Reported Atorvastatin Calcium 40 Mg Tablet 1 Tab PO DAILY Vitals/I & O Vital Sign - Last 24 Hours 04/18/17 04/18/17 04/18/17 04/18/17 15:00 19:00 19:42 20:00 Temp 98.2 97.8 98.2 97.8 Pulse 53 83 Resp 20 18 B/P (MAP) 144/49 (80) 198/91 (126) Pulse Ox 96 95 95 O2 Delivery Room Air Room Air Room Air Room Air 04/18/17 04/19/17 04/19/17 04/19/17 23:53 03:00 07:00 08:13 Temp 98.1 98.0 98.9 98.1 98.0 98.9 Pulse 78 67 76 Resp 18 18 20 B/P (MAP) 186/98 (127) 174/74 (107) 154/78 (103) Pulse Ox 94 96 92 95 O2 Delivery Room Air Room Air Room Air Room Air 04/19/17 04/19/17 10:22 10:55 Temp 98.3 98.3 Pulse 71 70 Resp 20 B/P (MAP) 142/84 151/82 (105) Pulse Ox 93 O2 Delivery Room Air Intake and Output 04/19/17 04/19/17 04/20/17 15:00 23:00 07:00 Intake Total 476 ml Balance 476 ml ETIENNE TRAORE MD Apr 19, 2017 11:24
[2017-04-19] MEDS: LIDOCAINE (700MG/PATCH) PATCH. TD SCH (12:48)
[2017-04-19 13:08] VITALS: BP 131/60
[2017-04-19 19:10] VITALS: BP 140/71
[2017-04-19] MEDS: ATORVASTATIN CALCIUM 40 MG TABLET. PO SCH (22:37)
[2017-04-19] MEDS: INSULIN DETEMIR 300 UNITS/3 ML INSULN.PEN. SQ SCH (23:00)
[2017-04-19 23:10] VITALS: BP 146/68
[2017-04-20 03:10] VITALS: BP 138/76
[2017-04-20] MEDS: metroNIDAZOLE 500 MG TABLET NG SCH ×3 (05:11→22:45)
[2017-04-20] MEDS: INSULIN ASPART 300 UNITS/3 ML INSULN.PEN SQ SCH ×9 (06:00→19:50)
[2017-04-20 07:00] VITALS: BP 129/56
[2017-04-20] MEDS: IPRATRPIUM/ALBUTEROL 0.5/2.5MG 3 ML NEBU. NEB SCH ×2 (07:59→20:06)
[2017-04-20] MEDS: SENNOSIDES/DOCUSATE 8.6/50MG TABLET. PO SCH ×2 (09:00→20:04)
[2017-04-20] MEDS: SCOPOLAMINE 1.5MG PATCH. TD SCH (09:37)
[2017-04-20] MEDS: DIPHENHYDRAMINE/ZINC ACETATE 2%/0.1% TOPICAL CREAM 28GM TUBE. TP SCH ×3 (09:39→22:45)
[2017-04-20] MEDS: LISINOPRIL 20 MG TABLET PO SCH (09:39)
[2017-04-20] MEDS: ASPIRIN ENTERIC COATED 325 MG TABLET.DR. PO SCH (09:39)
--- NOTE | 2017-04-20 11:15 | PDOC ---
PROGRESS NOTES Chief Complaint Chief Complaint CVA with left sided weakness ASSESSMENT AND PLAN: 1. CVA: dense L hemiplegia. cont 2ary prevention meds (off BB 2/2 relative bradycardia). needs rehab 2. HTN: fluctuating control on PRNs. increase lisinopril to 40 3. HLD: on statin 4. DM2: currently well controlled; home HgbA1c 7.9. cont levemir, ISS 5. Leukocytosis: resolved 6. Hypokalemia: resolved 7. neurogenic dysphagia with PEG: cont glucerna, switch to bolus fees 5x/d. rpt swallow eval confirmed dysphagia/NPO 8. C.diff colitis: on flagyl tid (since 04/07, stop 04/21) 9. TRAN/Neck pain: treat symptomatically (tylenol,heating pad PRN) 10. GERD: H2B, Tums 11. Constipation: no BM x5 days. increase senna Plus, dulcolax NC 12. Dispo: needs rehab. language and insurance barriers History of Present Illness History of Present Illness trying hard to work well with PT and OT, language barrier problems are very limiting I discussed DC options with family, LOS is now 27 days, no insurance, plan to DC home, recommended hospice to assist with feeding, family does not think they can afford Boost or Glucerna for PEG feeds and patient unable to eat still she is full asssit to sit, not walking Vitals Vitals Vital Signs Date Time Temp Pulse Resp B/P (MAP) Pulse Ox O2 Delivery O2 Flow Rate FiO2 04/20/17 09:39 59 129/56 04/20/17 08:00 Room Air 04/20/17 07:00 98.0 20 95 98.0 Physical Exam General: Alert, Cooperative, No acute distress Heart: Regular rate Lungs: Clear Abdomen: Normal bowel sounds, Soft, No tenderness, Other (PEG site C/D/I) Extremities: No clubbing, No cyanosis, No edema, Other (L hemiparesis) Skin: No rashes Labs LABS Laboratory Tests Test 04/19/17 11:59 04/19/17 17:24 04/19/17 22:43 04/20/17 00:12 Glucose (Fingerstick) 173 mg/dL (70-99) 141 mg/dL (70-99) 186 mg/dL (70-99) 140 mg/dL (70-99) Test 04/20/17 05:47 Glucose (Fingerstick) 118 mg/dL (70-99) Review of Systems Review of Systems abd pain. Assessment and Plan Assessmemt and Plan Problems Medical Problems: (1) CVA (cerebral vascular accident) Status: Acute Problems: Comment Review of Relevant I have reviewed the following items tamie (where applicable) has been applied. Labs Laboratory Tests Test 04/18/17 12:04 04/18/17 17:10 04/18/17 20:46 04/19/17 01:05 Glucose (Fingerstick) 185 mg/dL (70-99) 114 mg/dL (70-99) 97 mg/dL (70-99) 116 mg/dL (70-99) Test 04/19/17 03:56 04/19/17 06:00 04/19/17 11:59 04/19/17 17:24 White Blood Count 8.5 x10^3/uL (4.0-11.0) Red Blood Count 4.31 x10^6/uL (3.50-5.40) Hemoglobin 13.2 g/dL (12.0-15.5) Hematocrit 38.9 % (36.0-47.0) Mean Corpuscular Volume 90 fL (79-100) Mean Corpuscular Hemoglobin 31 pg (25-35) Mean Corpuscular Hemoglobin Concent 34 g/dL (31-37) Red Cell Distribution Width 13.2 % (11.5-14.5) Platelet Count 341 x10^3/uL (140-400) Neutrophils (%) (Auto) 62 % (31-73) Lymphocytes (%) (Auto) 25 % (24-48) Monocytes (%) (Auto) 7 % (0-9) Eosinophils (%) (Auto) 5 % (0-3) Basophils (%) (Auto) 2 % (0-3) Neutrophils # (Auto) 5.2 x10^3uL (1.8-7.7) Lymphocytes # (Auto) 2.1 x10^3/uL (1.0-4.8) Monocytes # (Auto) 0.6 x10^3/uL (0.0-1.1) Eosinophils # (Auto) 0.4 x10^3/uL (0.0-0.7) Basophils # (Auto) 0.2 x10^3/uL (0.0-0.2) Sodium Level 140 mmol/L (136-145) Potassium Level 3.5 mmol/L (3.5-5.1) Chloride Level 105 mmol/L (98-107) Carbon Dioxide Level 27 mmol/L (21-32) Anion Gap 8 (6-14) Blood Urea Nitrogen 14 mg/dL (7-20) Creatinine 0.9 mg/dL (0.6-1.0) Estimated GFR (Cockcroft-Gault) 62.3 Glucose Level 175 mg/dL (70-99) Calcium Level 8.7 mg/dL (8.5-10.1) Magnesium Level 2.2 mg/dL (1.8-2.4) Glucose (Fingerstick) 176 mg/dL (70-99) 173 mg/dL (70-99) 141 mg/dL (70-99) Test 04/19/17 22:43 04/20/17 00:12 04/20/17 05:47 Glucose (Fingerstick) 186 mg/dL (70-99) 140 mg/dL (70-99) 118 mg/dL (70-99) Laboratory Tests Test 04/19/17 11:59 04/19/17 17:24 04/19/17 22:43 04/20/17 00:12 Glucose (Fingerstick) 173 mg/dL (70-99) 141 mg/dL (70-99) 186 mg/dL (70-99) 140 mg/dL (70-99) Test 04/20/17 05:47 Glucose (Fingerstick) 118 mg/dL (70-99) Microbiology 04/03/17 Blood Culture - Final, Complete NO GROWTH AFTER 5 DAYS Medications Current Medications Insulin Aspart (NovoLOG) 0-5 UNITS TIDWMEALS SQ Last administered on 03/31/17 17:31; Start 03/24/17 at 17:00; Stop 04/01/17 at 09:20; Status DC Dextrose (Dextrose 50%-Water Syringe) 12.5 gm PRN Q15MIN PRN IV SEE COMMENTS; Start 03/24/17 at 12:30 Ceftriaxone Sodium 50 ml @ 100 mls/hr 1X ONCE IV Last administered on 13:33; Start 03/24/17 at 13:30; Stop 03/24/17 at 13:59; Status DC Ceftriaxone Sodium 1 gm/ Sodium Chloride 50 ml @ 100 mls/hr Q24H IV Last administered on 03/30/17 13:23; Start 03/25/17 at 14:00; Stop 03/31/17 at 14:28 ; Status DC Ondansetron HCl (Zofran) 4 mg PRN Q8HRS PRN IV NAUSEA/VOMITING; Start 03/24/17 at 13:30; Stop 03/25/17 at 13:29; Status DC Sodium Chloride 1,000 ml @ 125 mls/hr Q8H IV Last administered on 03/24/17 13 :37; Start 03/24/17 at 13:45; Stop 03/25/17 at 08:53; Status DC Aspirin (Aspirin) 300 mg 1X ONCE NC Last administered on 03/24/17 13:45; Start 03/24/17 at 13:45; Stop 03/24/17 at 13:46; Status DC Sodium Chloride (Normal Saline Flush) 3 ml QSHIFT PRN IV AFTER MEDS AND BLOOD DRAWS; Start 03/24/17 at 13:45 Sodium Chloride 1,000 ml @ 100 mls/hr Q10H IV Last administered on 03/25/17 01:22; Start 03/24/17 at 14:00; Stop 03/25/17 at 08:53; Status DC Aspirin (Ecotrin) 325 mg DAILYWBKFT PO Last administered on 04/20/17 09:39; Start 03/25/17 at 08:00 Atorvastatin Calcium (Lipitor) 20 mg QHS PO Last administered on 04/03/17 21:25 ; Start 03/24/17 at 21:00; Stop 04/04/17 at 14:01; Status DC Labetalol HCl (Normodyne) 10 mg PRN Q10MIN PRN IV HYPERTENSION, SEE COMMENTS Last administered on 03/25/17 20:08; Start 03/24/17 at 13:45 Acetaminophen (Tylenol) 650 mg PRN Q6HRS PRN PO FEVER; Start 03/24/17 at 13:45 ; Stop 03/29/17 at 21:13; Status DC Acetaminophen (Acetaminophen Supp) 650 mg PRN Q6HRS PRN NC FEVER Last administered on 03/28/17 21:42; Start 03/24/17 at 13:45; Stop 03/31/17 at 14:28 ; Status DC Enoxaparin Sodium (Lovenox 40mg Syringe) 40 mg Q24H SQ Last administered on 15:26; Start 03/24/17 at 15:00; Stop 03/29/17 at 08:44; Status DC Iohexol (Omnipaque 350 Mg/ml) 60 ml 1X ONCE IV Last administered on 03/24/17 16:25; Start 03/24/17 at 16:15; Stop 03/24/17 at 16:20; Status DC Info (Do NOT chart on this entry -- for MONITORING) 1 each PRN DAILY PRN MC SEE COMMENTS; Start 03/24/17 at 16:30; Stop 03/26/17 at 16:29; Status DC Ondansetron HCl (Zofran) 4 mg PRN Q6HRS PRN IV NAUSEA/VOMITING; Start 03/24/17 at 16:30 Amino Acids/ Glycerin/ Electrolytes 1,000 ml @ 80 mls/hr [id number] IV Last administered on 03/31/17 03:34; Start 03/25/17 at 09:30; Stop 03/31/17 at 12:13 ; Status DC Barium Sulfate (Varibar Thin Liquid Apple) 148 gm 1X ONCE PO Last administered on 03/26/17 13:30; Start 03/26/17 at 13:30; Stop 03/26/17 at 13:31 ; Status DC Ringer's Solution 1,000 ml @ 50 mls/hr Q20H IV ; Start 03/29/17 at 07:00; Stop 03/29/17 at 07:28; Status DC Diphenhydramine HCl (Benadryl) 25 mg PRN Q6HRS PRN IVP ITCHING Last administered on 04/07/17 21:23; Start 03/26/17 at 23:00 Potassium Chloride 50 ml @ 50 mls/hr Q1H IV ; Start 03/27/17 at 13:00; Stop at 14:59; Status UNV Potassium Chloride 100 ml @ 100 mls/hr Q1H IV Last administered on 03/27/17 19:45; Start 03/27/17 at 13:00; Stop 03/27/17 at 16:59; Status DC Ringer's Solution 1,000 ml @ 50 mls/hr Q20H IV ; Start 03/29/17 at 13:00; Stop 03/29/17 at 19:13; Status DC Midazolam HCl (Versed) 2 mg PRN 1X PRN IV PRIOR TO PROCEDURE; Start 03/29/17 at 12:15; Stop 03/29/17 at 15:49; Status DC Fentanyl Citrate (Fentanyl 2ml Vial) 25 mcg PRN Q5MIN PRN IV X 2 DOSES FOR PAIN ; Start 03/29/17 at 12:15; Stop 03/29/17 at 15:49; Status DC Fentanyl Citrate (Fentanyl 2ml Vial) 50 mcg PRN Q5MIN PRN IV X 2 DOSES FOR PAIN ; Start 03/29/17 at 12:15; Stop 03/29/17 at 15:49; Status DC Ringer's Solution 1,000 ml @ 125 mls/hr Q8H IV Last administered on 03/29/17 12:38; Start 03/29/17 at 12:07; Stop 03/29/17 at 17:31; Status DC Lidocaine HCl 2 ml 1X PRN PRN ID IV START; Start 03/29/17 at 12:15; Stop at 12:14; Status DC Propofol 20 ml @ As Directed STK-MED ONCE IV ; Start 03/29/17 at 12:29; Stop at 12:30; Status DC Morphine Sulfate 1 mg PRN Q2HR PRN IV PAIN Last administered on 04/15/17 20:51 ; Start 03/29/17 at 16:15; Stop 04/17/17 at 13:47; Status DC Morphine Sulfate 2 mg PRN Q2HR PRN IV PAIN Last administered on 04/03/17 02:41 ; Start 03/29/17 at 16:15; Stop 04/06/17 at 12:12; Status DC Acetaminophen (Tylenol) 650 mg PRN Q6HRS PRN PEG MILD PAIN / TEMP Last administered on 04/19/17 10:16; Start 03/29/17 at 21:15 Senna/Docusate Sodium (Senna Plus) 1 tab BID PO Last administered on 04/18/17 21:13; Start 03/31/17 at 21:00; Stop 04/19/17 at 09:09; Status DC Docusate Sodium (Colace) 100 mg BID PO Last administered on 04/18/17 21:13; Start 03/31/17 at 21:00; Stop 04/19/17 at 09:09; Status DC Magnesium Hydroxide (Milk Of Magnesia) 2,400 mg PRN Q12HR PRN PO CONSTIPATION Last administered on 04/11/17 12:58; Start 03/31/17 at 12:15 Potassium Chloride (KCl Oral Soln) 40 meq 1X ONCE PEG Last administered on 11:30; Start 04/01/17 at 11:15; Stop 04/01/17 at 11:16; Status DC Insulin Aspart (NovoLOG) 0-9 UNITS TIDWMEALS SQ Last administered on 04/14/17 12:00; Start 04/01/17 at 12:00; Stop 04/15/17 at 07:39; Status DC Dextrose (Dextrose 50%-Water Syringe) 12.5 gm PRN Q15MIN PRN IV SEE COMMENTS; Start 04/01/17 at 11:15; Status UNV Insulin Detemir (Levemir) 10 units QHS SQ Last administered on 04/01/17 21:49 ; Start 04/01/17 at 21:00; Stop 04/02/17 at 08:18; Status DC Insulin Detemir (Levemir) 15 units QHS SQ Last administered on 04/02/17 21:21; Start 04/02/17 at 21:00; Stop 04/03/17 at 13:21; Status DC Insulin Aspart (NovoLOG) 5 units TIDAC SQ Last administered on 04/03/17 12:49; Start 04/02/17 at 11:30; Stop 04/03/17 at 13:21; Status DC Scopolamine (Transderm-Scop) 1 patch Q3DAYS TD Last administered on 04/20/17 09:37; Start 04/02/17 at 10:00 Insulin Aspart (NovoLOG) 7 units TIDAC SQ Last administered on 04/07/17 09:01; Start 04/03/17 at 16:30; Stop 04/07/17 at 12:49; Status DC Insulin Detemir (Levemir) 20 units QHS SQ Last administered on 04/04/17 20:53; Start 04/03/17 at 21:00; Stop 04/05/17 at 08:47; Status DC Atorvastatin Calcium (Lipitor) 40 mg QHS PO Last administered on 04/19/17 22: 37; Start 04/04/17 at 21:00 Insulin Detemir (Levemir) 22 units QHS SQ ; Start 04/05/17 at 21:00; Stop at 21:00; Status DC Insulin Detemir (Levemir) 25 units QHS SQ Last administered on 04/19/17 23:00 ; Start 04/05/17 at 21:00 Iohexol (Omnipaque 240 Mg/ml) 50 ml 1X ONCE PO Last administered on 04/06/17 11:45; Start 04/06/17 at 11:45; Stop 04/06/17 at 11:46; Status DC Iohexol (Omnipaque 300 Mg/ml) 60 ml 1X ONCE IV Last administered on 04/06/17 13:29; Start 04/06/17 at 11:45; Stop 04/06/17 at 11:46; Status DC Info (Do NOT chart on this entry -- for MONITORING) 1 each PRN DAILY PRN MC SEE COMMENTS; Start 04/06/17 at 11:45; Stop 04/08/17 at 11:44; Status DC Iohexol (Omnipaque 300 Mg/ml) 75 ml STK-MED ONCE .ROUTE ; Start 04/06/17 at 15:05 ; Stop 04/06/17 at 15:06; Status DC Iohexol (Omnipaque 240 Mg/ml) 50 ml STK-MED ONCE .ROUTE ; Start 04/06/17 at 15:06 ; Stop 04/06/17 at 15:07; Status DC Metronidazole 100 ml @ 100 mls/hr Q8HRS IV Last administered on 04/06/17 21:49 ; Start 04/06/17 at 22:00; Stop 04/07/17 at 06:02; Status DC Metronidazole (Flagyl) 500 mg Q8HRS NG Last administered on 04/20/17 05:11; Start 04/07/17 at 06:30; Stop 04/21/17 at 06:30 Insulin Aspart (NovoLOG) 8 units TIDAC SQ Last administered on 04/15/17 07:30 ; Start 04/07/17 at 16:30; Stop 04/15/17 at 07:39; Status DC Albuterol Sulfate (Ventolin Neb Soln) 2.5 mg PRN Q4HRS PRN NEB WHEEZING; Start 04/09/17 at 04:30 Albuterol/ Ipratropium (Duoneb) 3 ml RTBID NEB Last administered on 04/20/17 07:59; Start 04/09/17 at 08:00 Zinc Acetate/ Diphenhydramine (Benadryl Topical) 1 jonn TID TP Last administered on 04/20/17 09:39; Start 04/10/17 at 15:00 Dextrose/Sodium Chloride 1,000 ml @ 50 mls/hr Q20H IV Last administered on 06:00; Start 04/10/17 at 19:45; Stop 04/19/17 at 08:47; Status DC Metoclopramide HCl (Reglan) 5 mg 1X ONCE IV Last administered on 04/11/17 15: 43; Start 04/11/17 at 15:45; Stop 04/11/17 at 15:46; Status DC Lidocaine (Lidoderm) 1 patch DAILY TD Last administered on 04/11/17 16:55; Start 04/11/17 at 16:30; Stop 04/12/17 at 07:53; Status DC Lidocaine (Lidoderm) 1 patch DAILY16 TD Last administered on 04/19/17 12:48; Start 04/12/17 at 16:00 Insulin Aspart (NovoLOG) 0-9 UNITS Q6HRS SQ Last administered on 04/18/17 13: 51; Start 04/15/17 at 12:00 Insulin Aspart (NovoLOG) 8 units Q6HRS SQ Last administered on 04/19/17 12:00 ; Start 04/15/17 at 12:00 Lisinopril (Prinivil) 10 mg DAILY PO Last administered on 04/18/17 09:30; Start 04/17/17 at 14:00; Stop 04/18/17 at 10:51; Status DC Lisinopril (Prinivil) 20 mg DAILY PO ; Start 04/19/17 at 09:00; Stop 04/19/17 at 09:00; Status DC Lisinopril (Prinivil) 40 mg DAILY PO Last administered on 04/20/17 09:39; Start 04/19/17 at 09:00 Senna/Docusate Sodium (Senna Plus) 2 tab BID PO Last administered on 04/19/17 10:20; Start 04/19/17 at 09:00 Bisacodyl (Dulcolax Supp) 10 mg PRN DAILY PRN NC CONSTIPATION Last administered on 04/19/17 10:23; Start 04/19/17 at 09:00 Active Scripts Active Transderm-Scop (Scopolamine) 1 Each Patch.[id number] 1 Patch TD Q3DAYS 30 Days Flagyl (Metronidazole) 500 Mg Tablet 500 Mg NG Q8HRS 14 Days Levemir Flextouch (Insulin Detemir) 100 Unit/1 Ml Insuln.pen 25 Units SQ QHS 30 Days Novolog Flexpen (Insulin Aspart) 100 Unit/1 Ml Insuln.pen 7 Units SQ TIDAC 30 Days Atorvastatin Calcium 40 Mg Tablet 40 Mg PO QHS 30 Days Aspirin Ec (Aspirin) 325 Mg Tablet. 325 Mg PO DAILYWBKFT 30 Days Reported Atorvastatin Calcium 40 Mg Tablet 1 Tab PO DAILY Vitals/I & O Vital Sign - Last 24 Hours 04/19/17 04/19/17 04/19/17 04/19/17 12:13 13:08 13:08 15:00 Temp 98.7 98.7 Pulse 59 Resp 12 B/P (MAP) 131/60 (83) Pulse Ox 94 O2 Delivery Room Air Room Air Room Air Room Air 04/19/17 04/19/17 04/19/17 04/19/17 19:10 19:47 20:10 23:10 Temp 98.1 98.2 98.1 98.2 Pulse 69 66 Resp 18 18 B/P (MAP) 140/71 (94) 146/68 (94) Pulse Ox 95 95 96 O2 Delivery Room Air Room Air Room Air Room Air 04/20/17 04/20/17 04/20/17 04/20/17 03:10 07:00 08:00 09:39 Temp 98.1 98.0 98.1 98.0 Pulse 69 59 59 Resp 18 20 B/P (MAP) 138/76 (96) 129/56 (80) 129/56 Pulse Ox 94 95 O2 Delivery Room Air Room Air Room Air IZABELA CROCKETT MD Apr 20, 2017 11:15
[2017-04-20] MEDS ORDERED: POLYETHYLENE GLYCOL 3350 17 GM PACKET. PO ONE (12:00)
[2017-04-20] MEDS: LIDOCAINE (700MG/PATCH) PATCH. TD SCH (13:27)
[2017-04-20 15:00] VITALS: BP 146/60
[2017-04-20 19:05] VITALS: BP 206/89
[2017-04-20] MEDS: ACETAMINOPHEN 650 MG/20.3 ML SOLUTION. PEG PRN (20:04)
[2017-04-20] MEDS: ATORVASTATIN CALCIUM 40 MG TABLET. PO SCH (20:05)
[2017-04-20] MEDS: traMADol 50 MG TABLET PEG PRN (22:44)
[2017-04-20 23:05] VITALS: BP 113/80
[2017-04-21] MEDS: INSULIN ASPART 300 UNITS/3 ML INSULN.PEN SQ SCH ×8 (00:34→18:16)
[2017-04-21] MEDS: INSULIN DETEMIR 300 UNITS/3 ML INSULN.PEN. SQ SCH ×2 (00:37)
[2017-04-21] MEDS: metroNIDAZOLE 500 MG TABLET NG SCH (05:59)
[2017-04-21 07:00] VITALS: BP 113/62
[2017-04-21] MEDS: IPRATRPIUM/ALBUTEROL 0.5/2.5MG 3 ML NEBU. NEB SCH ×2 (07:32→20:11)
[2017-04-21] MEDS: POLYETHYLENE GLYCOL 3350 17 GM PACKET. PO SCH (08:26)
[2017-04-21] MEDS: ASPIRIN 325 MG TABLET PEG SCH (08:26)
[2017-04-21] MEDS: SENNOSIDES/DOCUSATE 8.6/50MG TABLET. PO SCH ×2 (08:26→19:42)
[2017-04-21] MEDS: LISINOPRIL 20 MG TABLET PO SCH (08:27)
[2017-04-21] MEDS: DIPHENHYDRAMINE/ZINC ACETATE 2%/0.1% TOPICAL CREAM 28GM TUBE. TP SCH ×3 (08:27→19:39)
--- NOTE | 2017-04-21 10:19 | PDOC ---
PROGRESS NOTES Chief Complaint Chief Complaint CVA with left sided weakness ASSESSMENT AND PLAN: 1. CVA: dense L hemiplegia. cont 2ary prevention meds (off BB 2/2 relative bradycardia). needs rehab 2. HTN: fluctuating control on PRNs. increase lisinopril to 40 3. HLD: on statin 4. DM2: currently well controlled; home HgbA1c 7.9. cont levemir, ISS 5. Leukocytosis: resolved 6. Hypokalemia: resolved 7. neurogenic dysphagia with PEG: cont glucerna, switch to bolus fees 5x/d. rpt swallow eval confirmed dysphagia/NPO 8. C.diff colitis: on flagyl tid (since 04/07, stop 04/21) 9. TRAN/Neck pain: treat symptomatically (tylenol,heating pad PRN) 10. GERD: H2B, Tums 11. Constipation: no BM x5 days. increase senna Plus, dulcolax [place] 12. Dispo: needs rehab. language and insurance barriers History of Present Illness History of Present Illness DC home order placed, with hospice if approved, or per family care Language barrier problems are very limiting I have discussed DC options with family, L no insurance, plan to DC home, she is full asssit to sit, not walking Vitals Vitals Vital Signs Date Time Temp Pulse Resp B/P (MAP) Pulse Ox O2 Delivery O2 Flow Rate FiO2 04/21/17 08:27 66 113/62 04/21/17 08:00 Room Air 2.0 04/21/17 07:42 93 04/21/17 07:00 98.2 20 98.2 Physical Exam General: Alert, Cooperative, No acute distress Heart: Regular rate Lungs: Clear Abdomen: Normal bowel sounds, Soft, No tenderness, Other (PEG site C/D/I) Extremities: No clubbing, No cyanosis, No edema, Other (L hemiparesis) Skin: No rashes Labs LABS Laboratory Tests Test 04/20/17 12:15 04/20/17 18:15 04/21/17 00:33 04/21/17 06:04 Glucose (Fingerstick) 196 mg/dL (70-99) 117 mg/dL (70-99) 110 mg/dL (70-99) 118 mg/dL (70-99) Assessment and Plan Assessmemt and Plan Problems Medical Problems: (1) CVA (cerebral vascular accident) Status: Acute Problems: Comment Review of Relevant I have reviewed the following items tamie (where applicable) has been applied. Labs Laboratory Tests Test 04/19/17 11:59 04/19/17 17:24 04/19/17 22:43 04/20/17 00:12 Glucose (Fingerstick) 173 mg/dL (70-99) 141 mg/dL (70-99) 186 mg/dL (70-99) 140 mg/dL (70-99) Test 04/20/17 05:47 04/20/17 12:15 04/20/17 18:15 04/21/17 00:33 Glucose (Fingerstick) 118 mg/dL (70-99) 196 mg/dL (70-99) 117 mg/dL (70-99) 110 mg/dL (70-99) Test 04/21/17 06:04 Glucose (Fingerstick) 118 mg/dL (70-99) Laboratory Tests Test 04/20/17 12:15 04/20/17 18:15 04/21/17 00:33 04/21/17 06:04 Glucose (Fingerstick) 196 mg/dL (70-99) 117 mg/dL (70-99) 110 mg/dL (70-99) 118 mg/dL (70-99) Microbiology 04/03/17 Blood Culture - Final, Complete NO GROWTH AFTER 5 DAYS Medications Current Medications Insulin Aspart (NovoLOG) 0-5 UNITS TIDWMEALS SQ Last administered on 03/31/17 17:31; Start 03/24/17 at 17:00; Stop 04/01/17 at 09:20; Status DC Dextrose (Dextrose 50%-Water Syringe) 12.5 gm PRN Q15MIN PRN IV SEE COMMENTS; Start 03/24/17 at 12:30 Ceftriaxone Sodium 50 ml @ 100 mls/hr 1X ONCE IV Last administered on 13:33; Start 03/24/17 at 13:30; Stop 03/24/17 at 13:59; Status DC Ceftriaxone Sodium 1 gm/ Sodium Chloride 50 ml @ 100 mls/hr Q24H IV Last administered on 03/30/17 13:23; Start 03/25/17 at 14:00; Stop 03/31/17 at 14:28 ; Status DC Ondansetron HCl (Zofran) 4 mg PRN Q8HRS PRN IV NAUSEA/VOMITING; Start 03/24/17 at 13:30; Stop 03/25/17 at 13:29; Status DC Sodium Chloride 1,000 ml @ 125 mls/hr Q8H IV Last administered on 03/24/17 13 :37; Start 03/24/17 at 13:45; Stop 03/25/17 at 08:53; Status DC Aspirin (Aspirin) 300 mg 1X ONCE WA Last administered on 03/24/17 13:45; Start 03/24/17 at 13:45; Stop 03/24/17 at 13:46; Status DC Sodium Chloride (Normal Saline Flush) 3 ml QSHIFT PRN IV AFTER MEDS AND BLOOD DRAWS; Start 03/24/17 at 13:45 Sodium Chloride 1,000 ml @ 100 mls/hr Q10H IV Last administered on 03/25/17 01:22; Start 03/24/17 at 14:00; Stop 03/25/17 at 08:53; Status DC Aspirin (Ecotrin) 325 mg DAILYWBKFT PO Last administered on 04/20/17 09:39; Start 03/25/17 at 08:00; Stop 04/21/17 at 08:14; Status DC Atorvastatin Calcium (Lipitor) 20 mg QHS PO Last administered on 04/03/17 21:25 ; Start 03/24/17 at 21:00; Stop 04/04/17 at 14:01; Status DC Labetalol HCl (Normodyne) 10 mg PRN Q10MIN PRN IV HYPERTENSION, SEE COMMENTS Last administered on 03/25/17 20:08; Start 03/24/17 at 13:45 Acetaminophen (Tylenol) 650 mg PRN Q6HRS PRN PO FEVER; Start 03/24/17 at 13:45 ; Stop 03/29/17 at 21:13; Status DC Acetaminophen (Acetaminophen Supp) 650 mg PRN Q6HRS PRN WA FEVER Last administered on 03/28/17 21:42; Start 03/24/17 at 13:45; Stop 03/31/17 at 14:28 ; Status DC Enoxaparin Sodium (Lovenox 40mg Syringe) 40 mg Q24H SQ Last administered on 15:26; Start 03/24/17 at 15:00; Stop 03/29/17 at 08:44; Status DC Iohexol (Omnipaque 350 Mg/ml) 60 ml 1X ONCE IV Last administered on 03/24/17 16:25; Start 03/24/17 at 16:15; Stop 03/24/17 at 16:20; Status DC Info (Do NOT chart on this entry -- for MONITORING) 1 each PRN DAILY PRN MC SEE COMMENTS; Start 03/24/17 at 16:30; Stop 03/26/17 at 16:29; Status DC Ondansetron HCl (Zofran) 4 mg PRN Q6HRS PRN IV NAUSEA/VOMITING; Start 03/24/17 at 16:30 Amino Acids/ Glycerin/ Electrolytes 1,000 ml @ 80 mls/hr [id number] IV Last administered on 03/31/17 03:34; Start 03/25/17 at 09:30; Stop 03/31/17 at 12:13 ; Status DC Barium Sulfate (Varibar Thin Liquid Apple) 148 gm 1X ONCE PO Last administered on 03/26/17 13:30; Start 03/26/17 at 13:30; Stop 03/26/17 at 13:31 ; Status DC Ringer's Solution 1,000 ml @ 50 mls/hr Q20H IV ; Start 03/29/17 at 07:00; Stop 03/29/17 at 07:28; Status DC Diphenhydramine HCl (Benadryl) 25 mg PRN Q6HRS PRN IVP ITCHING Last administered on 04/07/17 21:23; Start 03/26/17 at 23:00 Potassium Chloride 50 ml @ 50 mls/hr Q1H IV ; Start 03/27/17 at 13:00; Stop at 14:59; Status UNV Potassium Chloride 100 ml @ 100 mls/hr Q1H IV Last administered on 03/27/17 19:45; Start 03/27/17 at 13:00; Stop 03/27/17 at 16:59; Status DC Ringer's Solution 1,000 ml @ 50 mls/hr Q20H IV ; Start 03/29/17 at 13:00; Stop 03/29/17 at 19:13; Status DC Midazolam HCl (Versed) 2 mg PRN 1X PRN IV PRIOR TO PROCEDURE; Start 03/29/17 at 12:15; Stop 03/29/17 at 15:49; Status DC Fentanyl Citrate (Fentanyl 2ml Vial) 25 mcg PRN Q5MIN PRN IV X 2 DOSES FOR PAIN ; Start 03/29/17 at 12:15; Stop 03/29/17 at 15:49; Status DC Fentanyl Citrate (Fentanyl 2ml Vial) 50 mcg PRN Q5MIN PRN IV X 2 DOSES FOR PAIN ; Start 03/29/17 at 12:15; Stop 03/29/17 at 15:49; Status DC Ringer's Solution 1,000 ml @ 125 mls/hr Q8H IV Last administered on 03/29/17 12:38; Start 03/29/17 at 12:07; Stop 03/29/17 at 17:31; Status DC Lidocaine HCl 2 ml 1X PRN PRN ID IV START; Start 03/29/17 at 12:15; Stop at 12:14; Status DC Propofol 20 ml @ As Directed STK-MED ONCE IV ; Start 03/29/17 at 12:29; Stop at 12:30; Status DC Morphine Sulfate 1 mg PRN Q2HR PRN IV PAIN Last administered on 04/15/17 20:51 ; Start 03/29/17 at 16:15; Stop 04/17/17 at 13:47; Status DC Morphine Sulfate 2 mg PRN Q2HR PRN IV PAIN Last administered on 04/03/17 02:41 ; Start 03/29/17 at 16:15; Stop 04/06/17 at 12:12; Status DC Acetaminophen (Tylenol) 650 mg PRN Q6HRS PRN PEG MILD PAIN / TEMP Last administered on 04/20/17 20:04; Start 03/29/17 at 21:15 Senna/Docusate Sodium (Senna Plus) 1 tab BID PO Last administered on 04/18/17 21:13; Start 03/31/17 at 21:00; Stop 04/19/17 at 09:09; Status DC Docusate Sodium (Colace) 100 mg BID PO Last administered on 04/18/17 21:13; Start 03/31/17 at 21:00; Stop 04/19/17 at 09:09; Status DC Magnesium Hydroxide (Milk Of Magnesia) 2,400 mg PRN Q12HR PRN PO CONSTIPATION Last administered on 04/11/17 12:58; Start 03/31/17 at 12:15 Potassium Chloride (KCl Oral Soln) 40 meq 1X ONCE PEG Last administered on 11:30; Start 04/01/17 at 11:15; Stop 04/01/17 at 11:16; Status DC Insulin Aspart (NovoLOG) 0-9 UNITS TIDWMEALS SQ Last administered on 04/14/17 12:00; Start 04/01/17 at 12:00; Stop 04/15/17 at 07:39; Status DC Dextrose (Dextrose 50%-Water Syringe) 12.5 gm PRN Q15MIN PRN IV SEE COMMENTS; Start 04/01/17 at 11:15; Status UNV Insulin Detemir (Levemir) 10 units QHS SQ Last administered on 04/01/17 21:49 ; Start 04/01/17 at 21:00; Stop 04/02/17 at 08:18; Status DC Insulin Detemir (Levemir) 15 units QHS SQ Last administered on 04/02/17 21:21; Start 04/02/17 at 21:00; Stop 04/03/17 at 13:21; Status DC Insulin Aspart (NovoLOG) 5 units TIDAC SQ Last administered on 04/03/17 12:49; Start 04/02/17 at 11:30; Stop 04/03/17 at 13:21; Status DC Scopolamine (Transderm-Scop) 1 patch Q3DAYS TD Last administered on 04/20/17 09:37; Start 04/02/17 at 10:00 Insulin Aspart (NovoLOG) 7 units TIDAC SQ Last administered on 04/07/17 09:01; Start 04/03/17 at 16:30; Stop 04/07/17 at 12:49; Status DC Insulin Detemir (Levemir) 20 units QHS SQ Last administered on 04/04/17 20:53; Start 04/03/17 at 21:00; Stop 04/05/17 at 08:47; Status DC Atorvastatin Calcium (Lipitor) 40 mg QHS PO Last administered on 04/20/17 20: 05; Start 04/04/17 at 21:00 Insulin Detemir (Levemir) 22 units QHS SQ ; Start 04/05/17 at 21:00; Stop at 21:00; Status DC Insulin Detemir (Levemir) 25 units QHS SQ Last administered on 04/21/17 00:37 ; Start 04/05/17 at 21:00 Iohexol (Omnipaque 240 Mg/ml) 50 ml 1X ONCE PO Last administered on 04/06/17 11:45; Start 04/06/17 at 11:45; Stop 04/06/17 at 11:46; Status DC Iohexol (Omnipaque 300 Mg/ml) 60 ml 1X ONCE IV Last administered on 04/06/17 13:29; Start 04/06/17 at 11:45; Stop 04/06/17 at 11:46; Status DC Info (Do NOT chart on this entry -- for MONITORING) 1 each PRN DAILY PRN MC SEE COMMENTS; Start 04/06/17 at 11:45; Stop 04/08/17 at 11:44; Status DC Iohexol (Omnipaque 300 Mg/ml) 75 ml STK-MED ONCE .ROUTE ; Start 04/06/17 at 15:05 ; Stop 04/06/17 at 15:06; Status DC Iohexol (Omnipaque 240 Mg/ml) 50 ml STK-MED ONCE .ROUTE ; Start 04/06/17 at 15:06 ; Stop 04/06/17 at 15:07; Status DC Metronidazole 100 ml @ 100 mls/hr Q8HRS IV Last administered on 04/06/17 21:49 ; Start 04/06/17 at 22:00; Stop 04/07/17 at 06:02; Status DC Metronidazole (Flagyl) 500 mg Q8HRS NG Last administered on 04/21/17 05:59; Start 04/07/17 at 06:30; Stop 04/21/17 at 06:30; Status DC Insulin Aspart (NovoLOG) 8 units TIDAC SQ Last administered on 04/15/17 07:30 ; Start 04/07/17 at 16:30; Stop 04/15/17 at 07:39; Status DC Albuterol Sulfate (Ventolin Neb Soln) 2.5 mg PRN Q4HRS PRN NEB WHEEZING; Start 04/09/17 at 04:30 Albuterol/ Ipratropium (Duoneb) 3 ml RTBID NEB Last administered on 04/21/17 07:32; Start 04/09/17 at 08:00 Zinc Acetate/ Diphenhydramine (Benadryl Topical) 1 jonn TID TP Last administered on 04/20/17 22:45; Start 04/10/17 at 15:00 Dextrose/Sodium Chloride 1,000 ml @ 50 mls/hr Q20H IV Last administered on 06:00; Start 04/10/17 at 19:45; Stop 04/19/17 at 08:47; Status DC Metoclopramide HCl (Reglan) 5 mg 1X ONCE IV Last administered on 04/11/17 15: 43; Start 04/11/17 at 15:45; Stop 04/11/17 at 15:46; Status DC Lidocaine (Lidoderm) 1 patch DAILY TD Last administered on 04/11/17 16:55; Start 04/11/17 at 16:30; Stop 04/12/17 at 07:53; Status DC Lidocaine (Lidoderm) 1 patch DAILY16 TD Last administered on 04/20/17 13:27; Start 04/12/17 at 16:00 Insulin Aspart (NovoLOG) 0-9 UNITS Q6HRS SQ Last administered on 04/20/17 14: 07; Start 04/15/17 at 12:00 Insulin Aspart (NovoLOG) 8 units Q6HRS SQ Last administered on 04/20/17 19:50 ; Start 04/15/17 at 12:00 Lisinopril (Prinivil) 10 mg DAILY PO Last administered on 04/18/17 09:30; Start 04/17/17 at 14:00; Stop 04/18/17 at 10:51; Status DC Lisinopril (Prinivil) 20 mg DAILY PO ; Start 04/19/17 at 09:00; Stop 04/19/17 at 09:00; Status DC Lisinopril (Prinivil) 40 mg DAILY PO Last administered on 04/21/17 08:27; Start 04/19/17 at 09:00 Senna/Docusate Sodium (Senna Plus) 2 tab BID PO Last administered on 04/21/17 08:26; Start 04/19/17 at 09:00 Bisacodyl (Dulcolax Supp) 10 mg PRN DAILY PRN [place] CONSTIPATION Last administered on 04/19/17 10:23; Start 04/19/17 at 09:00 Polyethylene Glycol (miraLAX PACKET) 17 gm 1X ONCE PO Last administered on 13:27; Start 04/20/17 at 12:00; Stop 04/20/17 at 12:01; Status DC Polyethylene Glycol (miraLAX PACKET) 17 gm DAILY PO Last administered on 08:26; Start 04/21/17 at 09:00 Tramadol HCl (Ultram) 50 mg PRN Q6HRS PRN PEG MODERATE PAIN Last administered on 04/20/17 22:44; Start 04/20/17 at 22:30 Aspirin (Janay Aspirin) 325 mg DAILYWBKFT PEG Last administered on 04/21/17 08 :26; Start 04/21/17 at 08:30 Active Scripts Active Transderm-Scop (Scopolamine) 1 Each Patch.td72 1 Patch TD Q3DAYS 30 Days Flagyl (Metronidazole) 500 Mg Tablet 500 Mg NG Q8HRS 14 Days Levemir Flextouch (Insulin Detemir) 100 Unit/1 Ml Insuln.pen 25 Units SQ QHS 30 Days Novolog Flexpen (Insulin Aspart) 100 Unit/1 Ml Insuln.pen 7 Units SQ TIDAC 30 Days Atorvastatin Calcium 40 Mg Tablet 40 Mg PO QHS 30 Days Aspirin Ec (Aspirin) 325 Mg Tablet. 325 Mg PO DAILYWBKFT 30 Days Reported Atorvastatin Calcium 40 Mg Tablet 1 Tab PO DAILY Vitals/I & O Vital Sign - Last 24 Hours 04/20/17 04/20/17 04/20/17 04/20/17 15:00 19:05 20:07 20:15 Temp 98.2 98.3 98.2 98.3 Pulse 64 78 Resp 20 18 B/P (MAP) 146/60 (88) 206/89 (128) Pulse Ox 95 97 96 O2 Delivery Room Air Room Air Room Air Room Air 04/20/17 04/21/17 04/21/17 04/21/17 23:05 03:05 07:00 07:42 Temp 98.5 98.2 98.5 98.2 Pulse 88 66 Resp 18 18 20 B/P (MAP) 113/80 (91) 113/62 (79) Pulse Ox 97 94 93 O2 Delivery Room Air Room Air Room Air 04/21/17 04/21/17 08:00 08:27 Pulse 66 B/P (MAP) 113/62 O2 Delivery Room Air O2 Flow Rate 2.0 IZABELA CROCKETT MD Apr 21, 2017 10:19
[2017-04-21 11:00] VITALS: BP 112/75
[2017-04-21 15:00] VITALS: BP 156/67
[2017-04-21] MEDS: LIDOCAINE (700MG/PATCH) PATCH. TD SCH ×2 (16:00→16:41)
[2017-04-21] MEDS: ATORVASTATIN CALCIUM 40 MG TABLET. PO SCH (19:42)
[2017-04-21 19:59] VITALS: BP 108/67
[2017-04-21 23:55] VITALS: BP 116/78
[2017-04-22] MEDS: traMADol 50 MG TABLET PEG PRN (00:10)
[2017-04-22] MEDS: INSULIN ASPART 300 UNITS/3 ML INSULN.PEN SQ SCH ×6 (06:17→13:12)
[2017-04-22 06:43] VITALS: BP 120/70
[2017-04-22] MEDS: IPRATRPIUM/ALBUTEROL 0.5/2.5MG 3 ML NEBU. NEB SCH (06:50)
[2017-04-22] MEDS: ASPIRIN 325 MG TABLET PEG SCH (08:26)
[2017-04-22] MEDS: POLYETHYLENE GLYCOL 3350 17 GM PACKET. PO SCH (08:26)
[2017-04-22] MEDS: SENNOSIDES/DOCUSATE 8.6/50MG TABLET. PO SCH (08:27)
[2017-04-22] MEDS: LISINOPRIL 20 MG TABLET PO SCH (08:27)
[2017-04-22] MEDS: DIPHENHYDRAMINE/ZINC ACETATE 2%/0.1% TOPICAL CREAM 28GM TUBE. TP SCH ×2 (08:28→14:00)
[2017-04-22 10:50] VITALS: BP 121/63
--- NOTE | 2017-04-22 14:47 | PDOC ---
PROGRESS NOTES Assessment Problems Medical Problems: (1) CVA (cerebral vascular accident) Status: Acute Right BG, goldsmith radiata and right hemisphere infarcts. 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 DM HTN HLD Obesity. UTI Plan Note plans for discharge home Continue ASA 325 mg daily. Continue Lipitor 40 mg HS. Vascular Surgery consulted and no indication for surgical intervention. OT/PT Rehab, May be difficult due to component of depression and with a right hemispheric stroke, there may be anosognosia. Discussed with her family Subjective None Objective Vital Signs Date Time Temp Pulse Resp B/P (MAP) Pulse Ox O2 Delivery O2 Flow Rate FiO2 04/22/17 10:50 98.3 52 20 121/63 (82) 97 Room Air 98.3 04/22/17 08:00 2.0 Intake and Output 04/23/17 07:00 Intake Total 750 ml Balance 750 ml Tube Feeding 750 ml PHYSICAL EXAM Alert. Speaks Syrian, but nonverbal and does not follow commands PERRL. EOMI. CN: Right gaze preference, left field cut, left central facial weakness Muscle tone: Increased on left Muscle strength: 1/5 left hemiplegia DTR: 2+ Plantar reflex: Extensor on left Gait: not examined in bed. Sensory exam: no abnormal findings. No cerebellar signs elicited. Review of Relevant I have reviewed the following items tamie (where applicable) has been applied. Labs Laboratory Tests Test 04/20/17 18:15 04/21/17 00:33 04/21/17 06:04 04/21/17 12:05 Glucose (Fingerstick) 117 mg/dL (70-99) 110 mg/dL (70-99) 118 mg/dL (70-99) 199 mg/dL (70-99) Test 04/22/17 00:03 04/22/17 06:16 04/22/17 12:57 Glucose (Fingerstick) 75 mg/dL (70-99) 134 mg/dL (70-99) 160 mg/dL (70-99) Laboratory Tests Test 04/22/17 00:03 04/22/17 06:16 04/22/17 12:57 Glucose (Fingerstick) 75 mg/dL (70-99) 134 mg/dL (70-99) 160 mg/dL (70-99) Microbiology 04/03/17 Blood Culture - Final, Complete NO GROWTH AFTER 5 DAYS Medications Current Medications Insulin Aspart (NovoLOG) 0-5 UNITS TIDWMEALS SQ Last administered on 03/31/17 17:31; Start 03/24/17 at 17:00; Stop 04/01/17 at 09:20; Status DC Dextrose (Dextrose 50%-Water Syringe) 12.5 gm PRN Q15MIN PRN IV SEE COMMENTS; Start 03/24/17 at 12:30 Ceftriaxone Sodium 50 ml @ 100 mls/hr 1X ONCE IV Last administered on 13:33; Start 03/24/17 at 13:30; Stop 03/24/17 at 13:59; Status DC Ceftriaxone Sodium 1 gm/ Sodium Chloride 50 ml @ 100 mls/hr Q24H IV Last administered on 03/30/17 13:23; Start 03/25/17 at 14:00; Stop 03/31/17 at 14:28 ; Status DC Ondansetron HCl (Zofran) 4 mg PRN Q8HRS PRN IV NAUSEA/VOMITING; Start 03/24/17 at 13:30; Stop 03/25/17 at 13:29; Status DC Sodium Chloride 1,000 ml @ 125 mls/hr Q8H IV Last administered on 03/24/17 13 :37; Start 03/24/17 at 13:45; Stop 03/25/17 at 08:53; Status DC Aspirin (Aspirin) 300 mg 1X ONCE OR Last administered on 03/24/17 13:45; Start 03/24/17 at 13:45; Stop 03/24/17 at 13:46; Status DC Sodium Chloride (Normal Saline Flush) 3 ml QSHIFT PRN IV AFTER MEDS AND BLOOD DRAWS; Start 03/24/17 at 13:45 Sodium Chloride 1,000 ml @ 100 mls/hr Q10H IV Last administered on 03/25/17 01:22; Start 03/24/17 at 14:00; Stop 03/25/17 at 08:53; Status DC Aspirin (Ecotrin) 325 mg DAILYWBKFT PO Last administered on 04/20/17 09:39; Start 03/25/17 at 08:00; Stop 04/21/17 at 08:14; Status DC Atorvastatin Calcium (Lipitor) 20 mg QHS PO Last administered on 04/03/17 21:25 ; Start 03/24/17 at 21:00; Stop 04/04/17 at 14:01; Status DC Labetalol HCl (Normodyne) 10 mg PRN Q10MIN PRN IV HYPERTENSION, SEE COMMENTS Last administered on 03/25/17 20:08; Start 03/24/17 at 13:45 Acetaminophen (Tylenol) 650 mg PRN Q6HRS PRN PO FEVER; Start 03/24/17 at 13:45 ; Stop 03/29/17 at 21:13; Status DC Acetaminophen (Acetaminophen Supp) 650 mg PRN Q6HRS PRN OR FEVER Last administered on 03/28/17 21:42; Start 03/24/17 at 13:45; Stop 03/31/17 at 14:28 ; Status DC Enoxaparin Sodium (Lovenox 40mg Syringe) 40 mg Q24H SQ Last administered on 15:26; Start 03/24/17 at 15:00; Stop 03/29/17 at 08:44; Status DC Iohexol (Omnipaque 350 Mg/ml) 60 ml 1X ONCE IV Last administered on 03/24/17 16:25; Start 03/24/17 at 16:15; Stop 03/24/17 at 16:20; Status DC Info (Do NOT chart on this entry -- for MONITORING) 1 each PRN DAILY PRN MC SEE COMMENTS; Start 03/24/17 at 16:30; Stop 03/26/17 at 16:29; Status DC Ondansetron HCl (Zofran) 4 mg PRN Q6HRS PRN IV NAUSEA/VOMITING; Start 03/24/17 at 16:30 Amino Acids/ Glycerin/ Electrolytes 1,000 ml @ 80 mls/hr [id number] IV Last administered on 03/31/17 03:34; Start 03/25/17 at 09:30; Stop 03/31/17 at 12:13 ; Status DC Barium Sulfate (Varibar Thin Liquid Apple) 148 gm 1X ONCE PO Last administered on 03/26/17 13:30; Start 03/26/17 at 13:30; Stop 03/26/17 at 13:31 ; Status DC Ringer's Solution 1,000 ml @ 50 mls/hr Q20H IV ; Start 03/29/17 at 07:00; Stop 03/29/17 at 07:28; Status DC Diphenhydramine HCl (Benadryl) 25 mg PRN Q6HRS PRN IVP ITCHING Last administered on 04/07/17 21:23; Start 03/26/17 at 23:00 Potassium Chloride 50 ml @ 50 mls/hr Q1H IV ; Start 03/27/17 at 13:00; Stop at 14:59; Status UNV Potassium Chloride 100 ml @ 100 mls/hr Q1H IV Last administered on 03/27/17 19:45; Start 03/27/17 at 13:00; Stop 03/27/17 at 16:59; Status DC Ringer's Solution 1,000 ml @ 50 mls/hr Q20H IV ; Start 03/29/17 at 13:00; Stop 03/29/17 at 19:13; Status DC Midazolam HCl (Versed) 2 mg PRN 1X PRN IV PRIOR TO PROCEDURE; Start 03/29/17 at 12:15; Stop 03/29/17 at 15:49; Status DC Fentanyl Citrate (Fentanyl 2ml Vial) 25 mcg PRN Q5MIN PRN IV X 2 DOSES FOR PAIN ; Start 03/29/17 at 12:15; Stop 03/29/17 at 15:49; Status DC Fentanyl Citrate (Fentanyl 2ml Vial) 50 mcg PRN Q5MIN PRN IV X 2 DOSES FOR PAIN ; Start 03/29/17 at 12:15; Stop 03/29/17 at 15:49; Status DC Ringer's Solution 1,000 ml @ 125 mls/hr Q8H IV Last administered on 03/29/17 12:38; Start 03/29/17 at 12:07; Stop 03/29/17 at 17:31; Status DC Lidocaine HCl 2 ml 1X PRN PRN ID IV START; Start 03/29/17 at 12:15; Stop at 12:14; Status DC Propofol 20 ml @ As Directed STK-MED ONCE IV ; Start 03/29/17 at 12:29; Stop at 12:30; Status DC Morphine Sulfate 1 mg PRN Q2HR PRN IV PAIN Last administered on 04/15/17 20:51 ; Start 03/29/17 at 16:15; Stop 04/17/17 at 13:47; Status DC Morphine Sulfate 2 mg PRN Q2HR PRN IV PAIN Last administered on 04/03/17 02:41 ; Start 03/29/17 at 16:15; Stop 04/06/17 at 12:12; Status DC Acetaminophen (Tylenol) 650 mg PRN Q6HRS PRN PEG MILD PAIN / TEMP Last administered on 04/20/17 20:04; Start 03/29/17 at 21:15 Senna/Docusate Sodium (Senna Plus) 1 tab BID PO Last administered on 04/18/17 21:13; Start 03/31/17 at 21:00; Stop 04/19/17 at 09:09; Status DC Docusate Sodium (Colace) 100 mg BID PO Last administered on 04/18/17 21:13; Start 03/31/17 at 21:00; Stop 04/19/17 at 09:09; Status DC Magnesium Hydroxide (Milk Of Magnesia) 2,400 mg PRN Q12HR PRN PO CONSTIPATION Last administered on 04/11/17 12:58; Start 03/31/17 at 12:15 Potassium Chloride (KCl Oral Soln) 40 meq 1X ONCE PEG Last administered on 11:30; Start 04/01/17 at 11:15; Stop 04/01/17 at 11:16; Status DC Insulin Aspart (NovoLOG) 0-9 UNITS TIDWMEALS SQ Last administered on 04/14/17 12:00; Start 04/01/17 at 12:00; Stop 04/15/17 at 07:39; Status DC Dextrose (Dextrose 50%-Water Syringe) 12.5 gm PRN Q15MIN PRN IV SEE COMMENTS; Start 04/01/17 at 11:15; Status UNV Insulin Detemir (Levemir) 10 units QHS SQ Last administered on 04/01/17 21:49 ; Start 04/01/17 at 21:00; Stop 04/02/17 at 08:18; Status DC Insulin Detemir (Levemir) 15 units QHS SQ Last administered on 04/02/17 21:21; Start 04/02/17 at 21:00; Stop 04/03/17 at 13:21; Status DC Insulin Aspart (NovoLOG) 5 units TIDAC SQ Last administered on 04/03/17 12:49; Start 04/02/17 at 11:30; Stop 04/03/17 at 13:21; Status DC Scopolamine (Transderm-Scop) 1 patch Q3DAYS TD Last administered on 04/20/17 09:37; Start 04/02/17 at 10:00 Insulin Aspart (NovoLOG) 7 units TIDAC SQ Last administered on 04/07/17 09:01; Start 04/03/17 at 16:30; Stop 04/07/17 at 12:49; Status DC Insulin Detemir (Levemir) 20 units QHS SQ Last administered on 04/04/17 20:53; Start 04/03/17 at 21:00; Stop 04/05/17 at 08:47; Status DC Atorvastatin Calcium (Lipitor) 40 mg QHS PO Last administered on 04/21/17 19: 42; Start 04/04/17 at 21:00 Insulin Detemir (Levemir) 22 units QHS SQ ; Start 04/05/17 at 21:00; Stop at 21:00; Status DC Insulin Detemir (Levemir) 25 units QHS SQ Last administered on 04/21/17 00:37 ; Start 04/05/17 at 21:00 Iohexol (Omnipaque 240 Mg/ml) 50 ml 1X ONCE PO Last administered on 04/06/17 11:45; Start 04/06/17 at 11:45; Stop 04/06/17 at 11:46; Status DC Iohexol (Omnipaque 300 Mg/ml) 60 ml 1X ONCE IV Last administered on 04/06/17 13:29; Start 04/06/17 at 11:45; Stop 04/06/17 at 11:46; Status DC Info (Do NOT chart on this entry -- for MONITORING) 1 each PRN DAILY PRN MC SEE COMMENTS; Start 04/06/17 at 11:45; Stop 04/08/17 at 11:44; Status DC Iohexol (Omnipaque 300 Mg/ml) 75 ml STK-MED ONCE .ROUTE ; Start 04/06/17 at 15:05 ; Stop 04/06/17 at 15:06; Status DC Iohexol (Omnipaque 240 Mg/ml) 50 ml STK-MED ONCE .ROUTE ; Start 04/06/17 at 15:06 ; Stop 04/06/17 at 15:07; Status DC Metronidazole 100 ml @ 100 mls/hr Q8HRS IV Last administered on 04/06/17 21:49 ; Start 04/06/17 at 22:00; Stop 04/07/17 at 06:02; Status DC Metronidazole (Flagyl) 500 mg Q8HRS NG Last administered on 04/21/17 05:59; Start 04/07/17 at 06:30; Stop 04/21/17 at 06:30; Status DC Insulin Aspart (NovoLOG) 8 units TIDAC SQ Last administered on 04/15/17 07:30 ; Start 04/07/17 at 16:30; Stop 04/15/17 at 07:39; Status DC Albuterol Sulfate (Ventolin Neb Soln) 2.5 mg PRN Q4HRS PRN NEB WHEEZING; Start 04/09/17 at 04:30 Albuterol/ Ipratropium (Duoneb) 3 ml RTBID NEB Last administered on 04/22/17 06:50; Start 04/09/17 at 08:00 Zinc Acetate/ Diphenhydramine (Benadryl Topical) 1 jonn TID TP Last administered on 04/22/17 14:00; Start 04/10/17 at 15:00 Dextrose/Sodium Chloride 1,000 ml @ 50 mls/hr Q20H IV Last administered on 06:00; Start 04/10/17 at 19:45; Stop 04/19/17 at 08:47; Status DC Metoclopramide HCl (Reglan) 5 mg 1X ONCE IV Last administered on 04/11/17 15: 43; Start 04/11/17 at 15:45; Stop 04/11/17 at 15:46; Status DC Lidocaine (Lidoderm) 1 patch DAILY TD Last administered on 04/11/17 16:55; Start 04/11/17 at 16:30; Stop 04/12/17 at 07:53; Status DC Lidocaine (Lidoderm) 1 patch DAILY16 TD Last administered on 04/20/17 13:27; Start 04/12/17 at 16:00 Insulin Aspart (NovoLOG) 0-9 UNITS Q6HRS SQ Last administered on 04/22/17 13: 12; Start 04/15/17 at 12:00 Insulin Aspart (NovoLOG) 8 units Q6HRS SQ Last administered on 04/22/17 13:12 ; Start 04/15/17 at 12:00 Lisinopril (Prinivil) 10 mg DAILY PO Last administered on 04/18/17 09:30; Start 04/17/17 at 14:00; Stop 04/18/17 at 10:51; Status DC Lisinopril (Prinivil) 20 mg DAILY PO ; Start 04/19/17 at 09:00; Stop 04/19/17 at 09:00; Status DC Lisinopril (Prinivil) 40 mg DAILY PO Last administered on 04/22/17 08:27; Start 04/19/17 at 09:00 Senna/Docusate Sodium (Senna Plus) 2 tab BID PO Last administered on 04/22/17 08:27; Start 04/19/17 at 09:00 Bisacodyl (Dulcolax Supp) 10 mg PRN DAILY PRN OR CONSTIPATION Last administered on 04/19/17 10:23; Start 04/19/17 at 09:00 Polyethylene Glycol (miraLAX PACKET) 17 gm 1X ONCE PO Last administered on 13:27; Start 04/20/17 at 12:00; Stop 04/20/17 at 12:01; Status DC Polyethylene Glycol (miraLAX PACKET) 17 gm DAILY PO Last administered on 08:26; Start 04/21/17 at 09:00 Tramadol HCl (Ultram) 50 mg PRN Q6HRS PRN PEG MODERATE PAIN Last administered on 04/22/17 00:10; Start 04/20/17 at 22:30 Aspirin (Janay Aspirin) 325 mg DAILYWBKFT PEG Last administered on 04/22/17 08 :26; Start 04/21/17 at 08:30 Active Scripts Active Transderm-Scop (Scopolamine) 1 Each Patch.td72 1 Patch TD Q3DAYS 30 Days Flagyl (Metronidazole) 500 Mg Tablet 500 Mg NG Q8HRS 14 Days Levemir Flextouch (Insulin Detemir) 100 Unit/1 Ml Insuln.pen 25 Units SQ QHS 30 Days Novolog Flexpen (Insulin Aspart) 100 Unit/1 Ml Insuln.pen 7 Units SQ TIDAC 30 Days Atorvastatin Calcium 40 Mg Tablet 40 Mg PO QHS 30 Days Aspirin Ec (Aspirin) 325 Mg Tablet.dr 325 Mg PO DAILYWBKFT 30 Days Reported Atorvastatin Calcium 40 Mg Tablet 1 Tab PO DAILY Vitals/I & O Vital Sign - Last 24 Hours 04/21/17 04/21/17 04/21/17 04/21/17 15:00 19:59 20:09 20:16 Temp 98.3 98.9 98.3 98.9 Pulse 61 74 Resp 20 16 B/P (MAP) 156/67 (96) 108/67 (81) Pulse Ox 96 94 99 O2 Delivery Room Air Room Air Room Air Room Air 04/21/17 04/22/17 04/22/17 04/22/17 23:55 03:16 06:43 06:50 Temp 98.4 98.4 98.4 98.4 Pulse 73 60 Resp 20 20 B/P (MAP) 116/78 (91) 120/70 (87) Pulse Ox 97 97 94 O2 Delivery Room Air Room Air Room Air Room Air 04/22/17 04/22/17 04/22/17 08:00 08:27 10:50 Temp 98.3 98.3 Pulse 60 52 Resp 20 B/P (MAP) 120/70 121/63 (82) Pulse Ox 97 O2 Delivery Room Air Room Air O2 Flow Rate 2.0 Intake and Output 04/22/17 04/22/17 04/23/17 15:00 23:00 07:00 Intake Total 750 ml Balance 750 ml ETIENNE TRAORE MD Apr 22, 2017 14:47
[2017-04-22 15:03] VITALS: BP 133/78
[2017-04-22] MEDS: LIDOCAINE (700MG/PATCH) PATCH. TD SCH (17:31)
--- NOTE | 2017-04-23 15:07 | PDOC3 ---
Discharge Summary Visit Information Date of Admission: Mar 24, 2017 Date of Discharge: Apr 22, 2017 Admitting Diagnosis: acute stroke Final Diagnosis acute CVA with left sided weakness 1. CVA: dense L hemiplegia. cont 2ary prevention meds (off BB 2/2 relative bradycardia). did not improve much with rehab here, condition very static 2. HTN: fluctuating control on lisinopril 40 3. HLD: on statin 4. DM2: currently well controlled; home HgbA1c 7.9. cont levemir, ISS 5. Leukocytosison admit 6. Hypokalemia: 7. neurogenic dysphagia with PEG: cont glucerna, switch to bolus fees 5x/d. rpt swallow eval confirmed dysphagia/NPO 8. C.diff colitis: treated w./ flagyl tid (since 04/07, stopped 04/21) 9. TRAN/Neck pain: treat symptomatically (tylenol,heating pad PRN) 10. GERD: 11. Constipation: aggressive care 12. hemiplegia, dysphagia, marked weakness and debiliyt, post CVA syndrome Problems Medical Problems: (1) CVA (cerebral vascular accident) Status: Acute Brief Hospital Course Allergies Allergies Coded Allergies Type Severity Reaction Last Updated Verified ceftriaxone Allergy Intermediate 04/06/17 Yes Vital Signs Vital Signs Date Time Temp Pulse Resp B/P (MAP) Pulse Ox O2 Delivery O2 Flow Rate FiO2 04/22/17 15:03 97.7 56 20 133/78 (96) 96 Room Air 97.7 04/22/17 08:00 2.0 Lab Results Laboratory Tests Test 04/21/17 18:12 04/22/17 00:03 04/22/17 06:16 04/22/17 12:57 Glucose (Fingerstick) 124 mg/dL (70-99) 75 mg/dL (70-99) 134 mg/dL (70-99) 160 mg/dL (70-99) Brief Hospital Course Ms. Tabares is a 66 old female, from [facility], not a citizen, and had no insurance, Admit for acute CVA long course, hemiparesis dysphagia, PEG placed, will need PEG food and med support could not get placed in rehab dueto insurance issue mult discussions with family, Ethics consult x3, plan DC with hospice, maybe she can improve and graduate, but still dysphagic, marked weakenss, full assist to transfer, could not ambulate Language barrier problems were very limiting Discharge Information Condition at Discharge: Improved Follow Up: Weeks Disposition/Orders: D/C to Home w/ Hospice Scheduled Aspirin (Aspirin Ec), 325 MG PO DAILYWBKFT Atorvastatin Calcium (Atorvastatin Calcium), 1 TAB PO DAILY, (Reported) Atorvastatin Calcium (Atorvastatin Calcium), 40 MG PO QHS Insulin Aspart (Novolog Flexpen), 7 UNITS SQ TIDAC Insulin Detemir (Levemir Flextouch), 25 UNITS SQ QHS Metronidazole (Flagyl), 500 MG NG Q8HRS Scopolamine (Transderm-Scop), 1 PATCH TD Q3DAYS Patient Instructions Patient Instructions < 30 min IZABELA CROCKETT MD Apr 23, 2017 15:07
== END 2017-04-22 18:29 | disposition hospice, home (50) | DRG 64 ==
LOC: ER 11:25 → 6 SOUTH 12:33
PROVIDERS: ADMIT Internal Medicine; ATTEND Internal Medicine
PROC: 0DH63UZ Insertion of Feeding Device into Stomach, Percutaneous Approach (ICD-10-PCS; principal; 2017-03-29 13:30)
DX: I63.9 Cerebral infarction, unspecified (principal); G93.41 Metabolic encephalopathy; A04.7 Enterocolitis due to Clostridium difficile; G81.94 Hemiplegia, unspecified affecting left nondominant side; N39.0 Urinary tract infection, site not specified; R47.01 Aphasia; E11.65 Type 2 diabetes mellitus with hyperglycemia; E66.9 Obesity, unspecified; Z68.35 Body mass index [BMI] 35.0-35.9, adult; E78.5 Hyperlipidemia, unspecified; E87.6 Hypokalemia; I10 Essential (primary) hypertension; I65.02 Occlusion and stenosis of left vertebral artery; I65.23 Occlusion and stenosis of bilateral carotid arteries; K21.9 Gastro-esophageal reflux disease without esophagitis; K59.00 Constipation, unspecified; Z82.49 Family history of ischemic heart disease and other diseases of the circulatory system; Z87.891 Personal history of nicotine dependence; Z91.14 Patient's other noncompliance with medication regimen; R00.1 Bradycardia, unspecified; Z51.5 Encounter for palliative care; Z88.1 Allergy status to other antibiotic agents; M54.2 Cervicalgia
CPT/HCPCS: 99285; C8929; 36415; 70450; 70496; 70498; 70551; 71010; 74177; 74230; 80048; 80053; 80061; 80307; 81001; 82962; 83036; 83735; 84484; 85007; 85025; 85610; 85730; 87040; 87324; 93005; 93880; 94250; 94640; 94760; J0690; J0696; J1200; J1650; J1815; J2270; J2704; J2765; J3480; J3490; J7030; J7120; J7620; Q9966; Q9967; 92507; 92523; 92526; 92610; 92611; 97110; 97530; 97535; G0479